=== PATIENT | female | born 1940 | race Caucasian/White ===

== ENCOUNTER → 2016-12-12 | Outpatient (CLI) | payer MEDICARE, BC ==
--- NOTE | 2016-12-12 12:42 | MR ---
EXAMINATION TYPE: MR lumbar spine wo con DATE OF EXAM: 12/12/2016 12:23 PM COMPARISON: NONE HISTORY: low back pain TECHNIQUE: T1 and T2 axial and sagittal images of the lumbar spine are submitted. FINDINGS: There is no abnormal signal seen within the visualized spinal cord or paraspinal soft tissu es. Correlate for sacroiliitis. there appears to be some artifact on the sagittal T2 image within the distal spinal cord. This area is not included on axial images. Simple appearing left renal cyst noted. At L1-2 there is mild degenerative disc disease but no evidence of canal stenosis or focal herniation . Mild facet arthropathy noted. At L2-3 there is mild to moderate hypertrophic change of the facets. No disc herniation or canal sten osis. Mild degenerative disc disease. No foraminal encroachment. At L3-4 there is Mild degenerative disc disease with moderate facet arthropathy. Mild circumferential disc bulging and effacement of the thecal sac but no canal stenosis. Mild bilateral foraminal encroa chment. At L4-5 there is severe facet arthropathy with grade 1 anterolisthesis. There is broad-based central disc bulging slightly greater paracentrally the left. Ligamentum flavum hypertrophy noted and there i s borderline canal stenosis and mild left foraminal encroachment. At L5-S1 there is facet arthropathy but no canal stenosis or foraminal encroachment. No disc herniati on. IMPRESSION: 1. Multilevel facet arthropathy with severe changes at L4-5 results in a grade 1 anterolisthesis. Spi nal canal is also diminutive at L4-5 with hypertrophic change of the facet joints and ligamentum flav um resulting in borderline canal stenosis. Disc bulging greater paracentrally left results in mild le ft foraminal encroachment. 2. Additionally at L4-L5 intermediate signal near the left lateral recess extending toward the left n eural foramina which may represent a more focal disc protrusion and foraminal encroachment.
== END | disposition home or self-care (01) ==
LOC: RADMRIMAIN 11:32
PROVIDERS: ATTEND Orthopaedic Surgery
DX: M48.06 Spinal stenosis, lumbar region (principal); M51.26 Other intervertebral disc displacement, lumbar region; M43.16 Spondylolisthesis, lumbar region; M46.96 Unspecified inflammatory spondylopathy, lumbar region
CPT/HCPCS: 72148

== ENCOUNTER → 2017-01-05 | Outpatient (CLI) | payer MEDICARE, BC ==
[2017-01-05 11:43] LABS: Basophils # (A) 0.1 k/uL (0-0.2); Basophils % (A) 1 %; CH 26.9; CHCM 31.8; Eosinophils # (A) 0.2 k/uL (0-0.7); Eosinophils % (A) 2 %; HCT 36.7 % (34.0-46.0); HDW 2.79; HGB 11.6 gm/dL (11.4-16.0); Hypochromasia Slight; Luc # (Auto) 0.41; Luc % (Auto) 4; Lymphocytes # (A) 2.7 k/uL (1.0-4.8); Lymphocytes % (A) 28 %; MCH 26.9 pg (25.0-35.0); MCHC 31.7 g/dL (31.0-37.0); Mean Platelet Volume 7.2; Monocytes # (A) 0.6 k/uL (0-1.0); Monocytes % (A) 6 %; Neutrophils # (A) 5.6 k/uL (1.3-7.7); Neutrophils % (A) 59 %; RBC 4.32 m/uL (3.80-5.40); RDW 14.9 % (11.5-15.5); WBC 9.6 k/uL (3.8-10.6); WBC (Perox) 10.89
== END | disposition home or self-care (01) ==
LOC: LABWHC1 11:03
PROVIDERS: ATTEND Physical Medicine & Rehabilitation
DX: M51.36 Other intervertebral disc degeneration, lumbar region (principal); M51.26 Other intervertebral disc displacement, lumbar region; M47.817 Spondylosis without myelopathy or radiculopathy, lumbosacral region; M54.16 Radiculopathy, lumbar region; M54.5 Low back pain
CPT/HCPCS: 36415; 84165; 85025

== ENCOUNTER → 2017-04-03 | Outpatient (CLI) | payer MEDICARE, BC ==
[2017-04-03 10:55] LABS: Basophils # (A) 0.1 k/uL (0-0.2); Basophils % (A) 1 %; CH 27.7; CHCM 31.8; Eosinophils # (A) 0.2 k/uL (0-0.7); Eosinophils % (A) 2 %; HCT 36.5 % (34.0-46.0); HDW 2.44; HGB 11.5 gm/dL (11.4-16.0); Luc # (Auto) 0.17; Luc % (Auto) 2; Lymphocytes # (A) 2.9 k/uL (1.0-4.8); Lymphocytes % (A) 38 %; MCH 27.4 pg (25.0-35.0); MCHC 31.4 g/dL (31.0-37.0); MCV 87.2 fL (80.0-100.0); Mean Platelet Volume 6.4; Monocytes # (A) 0.5 k/uL (0-1.0); Monocytes % (A) 7 %; Neutrophils # (A) 3.8 k/uL (1.3-7.7); Neutrophils % (A) 50 %; RBC 4.19 m/uL (3.80-5.40); RDW 14.7 % (11.5-15.5); WBC 7.7 k/uL (3.8-10.6); WBC (Perox) 7.64
[2017-04-03 10:59] LABS: Appearance,Urine Turbid (Clear); Bacteria,Urine Many /hpf; Bilirubin,Urine Negative (Negative); Glucose,Urine (UA) Negative (Negative); Ketones,Urine Negative (Negative); Leukocyte Esterase,Urine Large (Negative); Mucus,Urine Rare /hpf; Nitrite,Urine Positive (Negative); PH, Urine 5.5 (5.0-8.0); Particle Count 44240; Protein,Urine Trace (Negative); RBC,Urine 6 /hpf (0-5); Specific Gravity,Urine 1.016 (1.001-1.035); Squamous Epithelial Cell,Urine 12 /hpf (0-4); UA Billing (MACRO vs. MICRO) MICRO; Urobilinogen,Urine <2.0 mg/dL (<2.0); WBC,Urine >182 /hpf (0-5)
[2017-04-03 11:09] LABS: Anion Gap 12 mmol/L; Blood Urea Nitrogen 16 mg/dL (7-17); Calcium 9.1 mg/dL (8.4-10.2); Carbon Dioxide 21 mmol/L (22-30); Chloride 97 mmol/L (98-107); Glucose 161 mg/dL (74-99); Non-African American GFR(MDRD) >60 (>60 ml/min/1.73 sqM); Potassium 4.7 mmol/L (3.5-5.1); Sodium 130 mmol/L (137-145)
[2017-04-03 11:41] LABS: Partial Thromboplastin Time 23.9 sec (22.0-30.0); Prothrombin Time 9.9 sec (9.0-12.0)
--- NOTE | 2017-04-03 15:36 | XR ---
EXAMINATION TYPE: XR chest 2V DATE OF EXAM: 04/03/2017 HISTORY: Z01.818 pre op. REFERENCE: Previous study dated 07/17/2015. FINDINGS: An electronic stimulator objects behind the heart on the left. There has been interval development of a 4.2 mm right-sided pulmonary nodule. This was not seen with certainty on the previous study. The lungs are otherwise clear. Pleural spaces are clear. Heart size is upper limits of normal. IMPRESSION: 1. BORDERLINE CARDIOMEGALY. 2. SOLITARY RIGHT-SIDED PULMONARY NODULE. A CT SCAN OF THE CHEST WOULD BE SUGGESTED.
== END | disposition home or self-care (01) ==
LOC: LABWHC1 09:42
PROVIDERS: ATTEND Orthopaedic Surgery Orthopaedic Surgery of the Spine
DX: Z01.818 Encounter for other preprocedural examination (principal); R91.1 Solitary pulmonary nodule; Z01.812 Encounter for preprocedural laboratory examination; Z79.01 Long term (current) use of anticoagulants
CPT/HCPCS: 36415; 71020; 80048; 81001; 85025; 85610; 85730; 86850; 86900; 86901; 87070

== ENCOUNTER 2017-04-12 05:54 | Inpatient (IN) | payer MEDICARE, BC ==
[2017-04-05 11:52] VITALS: BMI 29.8
[~2017-04-12 05:54] MED LIST: BACITRACIN 50,000 UNIT, POLYMYXIN B 500,000 UNIT in SODIUM CHLORIDE 0.9% IRRIGATIO 1,00... IRRIGATION ONE; ceFAZolin 2 GM in SODIUM CHLORIDE 0.9% 100 ML IVPB ONE
[2017-04-12] MEDS ORDERED: SCOPOLAMINE 1.5MG/72HR PATCH TRANSDERM ONE (06:00)
[2017-04-12] MEDS ORDERED: ONDANSETRON 4 MG/2 ML VIAL IVP ONE (06:00)
[2017-04-12] MEDS ORDERED: DEXAMETHASONE SOD PHOSPHATE 10 MG/ML 1 ML VIAL IV ONE (06:00)
[2017-04-12] MEDS ORDERED: LIDOCAINE 1% 20 ML VIAL (10MG/ML) FOR IV START INTRADERMA PRN (06:00)
[2017-04-12] MEDS ORDERED: MIDAZOLAM 2 MG/2 ML VIAL IV PRN (06:00)
[2017-04-12 06:33] LABS: Glucose,Whole Blood 120 mg/dL (75-99)
[2017-04-12] MEDS: LACTATED RINGERS 1,000 ML IV SCH (06:35)
[2017-04-12] MEDS ORDERED: LIDOCAINE 1% INJ 10MG/ML (20 ML MDV) ONE (07:20)
[2017-04-12] MEDS ORDERED: ePHEDrine 50 MG/ML 1 ML AMP ONE (07:20)
[2017-04-12] MEDS ORDERED: MIDAZOLAM 2 MG/2 ML VIAL ONE (07:20)
[2017-04-12] MEDS ORDERED: fentaNYL (PF) 50 MCG/ML 2 ML AMP ONE (07:20)
[2017-04-12] MEDS ORDERED: PROPOFOL 10 MG/ML 20 ML VIAL IV ONE (07:20)
[2017-04-12] MEDS ORDERED: SUCCINYLCHOLINE CHLORIDE 100 MG/5 ML SYR IV ONE (07:20)
[2017-04-12] MEDS ORDERED: LEVOFLOXACIN 500MG-D5W PMX 500 MG in DEXTROSE/WATER 1 100ML.BAG IVPB STA (07:37)
[2017-04-12] MEDS ORDERED: GELATIN SPONGE,ABSORB (LARGE) 1 EACH SPONGE TOPICAL ONE (08:03)
[2017-04-12] MEDS ORDERED: THROMBIN (BOVINE) 5,000 UNIT VIAL TOPICAL ONE (08:03)
[2017-04-12] MEDS ORDERED: methylPREDNISolone ACETATE 80 MG/ML 1 ML VIAL INJ ONE (08:03)
[2017-04-12] MEDS ORDERED: LIDOCAINE 0.5%-EPI 1:200,000 50 ML VIAL SQ ONE (08:03)
[2017-04-12] MEDS ORDERED: LACTATED RINGERS 1,000 ML IV ONE (08:18)
--- NOTE | 2017-04-12 08:29 | FL ---
FLUOROSCOPY 3 seconds of fluoroscopy time were utilized during needle placement. 1 images document the procedure.
[2017-04-12] MEDS ORDERED: HYDROcodone/APAP 5-325MG 1 EACH TAB PO PRN (09:36)
[2017-04-12] MEDS ORDERED: BENZOCAINE/MENTHOL LOZENG 1 EACH LOZENGE MUCOUS MEM PRN (09:36)
[2017-04-12] MEDS ORDERED: ONDANSETRON 4 MG/2 ML VIAL IVP PRN (09:36)
[2017-04-12] MEDS ORDERED: HYDROmorphone 1 MG/ML 1 ML SYRINGE IVP PRN (09:36)
[2017-04-12] MEDS ORDERED: DIAZEPAM 5 MG TAB PO PRN (09:36)
[2017-04-12] MEDS ORDERED: MAGNESIUM HYDROXIDE 2,400 MG/10 ML CUP PO PRN (09:36)
[2017-04-12] MEDS ORDERED: NITROGLYCERIN SL TABS 0.4 MG TAB SUBLINGUAL PRN (09:42)
[2017-04-12] MEDS ORDERED: ACETAMINOPHEN TAB 325 MG TAB PO PRN (09:42)
[2017-04-12 09:53] LABS: Glucose,Whole Blood 143 mg/dL (75-99)
[2017-04-12] MEDS: HYDROmorphone 1 MG/ML 1 ML SYRINGE IVP PRN ×2 (10:18→10:27)
--- NOTE | 2017-04-12 10:20 | P.OP ---
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 Hinojosa Scraper Hand: Simón Liu is present throughout the entire the case persistence during positioning, dissection, exposure, visualization, and all crucial elements of the case as well as closure. Anesthesia: General anesthesia Estimated blood loss: Approximately 50 mL Complications: None apparent Components implanted: Tisseel was used over the dural repair Disposition: To recovery room in good stable condition. OPERATIVE INDICATIONS The patient has been having issues in their lower back and lower extremities. She is found have a disc herniation at L4 5 which correlated with her back and lower extremity symptoms. The patient has been through conservative treatment. She has been through extensive conservative care including epidural steroid injections. I was not aware of any specific, occasions with her epidural injections. She is not having any prolonged benefit despite extensive conservative treatment. We discussed various treatment options including surgery, and the patient wishes to proceed with surgery We discussed the risk, patient's alternatives and benefits of surgery including but not limited to, risk of bleeding risk of infection, risk of need for further surgery, risk of decreased, loss of motion, loss of function, nerve damage, dural tear, paralysis , heart attack, blindness and . OPERATIVE SUMMARY After discussing all the risks, patient alternatives and benefits at length, the patient elected to proceed with surgical intervention, signed informed consent, and presented for their procedure. The patient was seen and examined in the preoperative holding area and the surgical site was marked. The patient was given antibiotics and brought to the operating room. The patient was sedated and intubated by anesthesia in standard fashion. The patient was positioned on to the operating room table in a prone position on the appropriate frame which was well-padded and well molded. We were careful to pad any bony prominences and pressure points. We were careful to maintain the patient's cervical spine and good neutral alignment and position throughout. The patient was prepped and draped in a normal standard fashion. An appropriate timeout and keystone protocol performed. We were able to proceed with the surgery. Fluoroscopy was utilized to establish the appropriate level. The local wound area was infiltrated with local anesthetic. An incision was made at the midline longitudinally over the appropriate levels at L4 5. Dissection was taken down subcutaneously to the level of the fascia which was split midline. Dissection was taken over the lamina. Intraoperative fluoroscopy was taken which showed a marker at the appropriate level at L4 5. With the appropriate level positively confirmed, we were able to proceed with laminectomy. The wound was copiously irrigated and suctioned dry as had been done periodically throughout the case. I performed a laminectomy with a combination of curettes and a high-speed bur and Kerrison rongeurs. A small medial facetectomy was performed again further access. Upon removal of some of the ligamentum there was evidence of a change in the dura that was noticed. There seemed to be a bubble likely represented in the arachnoid matter of the dura. There was some scar tissue formation around the edges of the opening of the dura. There is no gross tear of the dura but there was a miniscule oozing of cerebral spinal fluid from the thin layer covering the dura. I did not note a specific pinching of the dura with minus rotation or during the procedure. I did not note a specific time that I incised the dura itself. With the scar tissue formation in the formation of the thin bubble type layer covering the durotomy felt that this may be due to a pseudomeningeoceole potentially from prior epidural injections. I had to expose that area further with extending the laminectomy across the midline to expose the area at the dorsal central area of the dura. I was able to expose the area appropriately and I did a repair with a 6-0 Prolene of the dura itself for good reapproximation. There is no evidence of further drainage from the area. The durotomy appeared to be repaired. A partial foraminotomy was also performed To get good access to the disc space and get good decompression. Portions of the ligamentum flavum were taken down to expose the dura and traversing nerve root. I was able to mobilize the traversing nerve root and gain access to the disc space. Note was made of obvious compression from the disc. Protecting the soft tissue structures, a small annulotomy was established. I was able to perform discectomy and remove any extruded disc fragments and any loose fragments from within the disc itself. There is some significant disc desiccation noted. I tried to preserve the disc annulus that appeared stable. There were no further extruded fragments noted. There is no evidence of further dural tear or leak. We used Tisseel over the dural repair. We placed the patient in a Valsalva maneuver with anesthesia and there is no evidence of any further leakage. Good hemostasis maintained. The wound was copiously irrigated and suctioned dry. Good decompression and discectomy was noted. We were able to proceed with closure. The fascia was closed for a watertight closure. The subcuticular tissue was closed with absorbable suture. The wound was cleaned and dried and dressed with the appropriate dressing. The drapes were broken down. The patient was gently rolled back onto their hospital bed being careful to maintain their cervical spine and good neutral alignment and position. They were woken up by anesthesia, extubated, and brought to the recovery room in good stable condition. The patient will be admitted to the hospital for observation and for appropriate postoperative care, medical management and monitoring. we will need to keep the patient flat in bed for approximately 48 hours before having her get upright to allow the dural repair to heal appropriately. We will continue to follow them closely about the postoperative course.
[2017-04-12] MEDS: CHOLECALCIFEROL 1,000 UNIT TAB PO SCH (11:41)
[2017-04-12 11:42] LABS: Glucose,Whole Blood 120 mg/dL (75-99)
[2017-04-12] MEDS: HYDROcodone/APAP 5-325MG 1 EACH TAB PO PRN ×2 (14:35→20:18)
[2017-04-12] MEDS: GABAPENTIN 300 MG CAP PO SCH ×2 (16:07→22:44)
[2017-04-12] MEDS: ceFAZolin 2 GM in SODIUM CHLORIDE 0.9% 100 ML IVPB SCH ×2 (16:08→23:46)
[2017-04-12] MEDS: hydrALAZINE HCL 25 MG TAB PO SCH ×2 (16:08→22:44)
[2017-04-12] MEDS: INSULIN LISPRO (humaLOG) 300 UNIT/3 ML VIAL SQ SCH ×2 (17:23→20:18)
[2017-04-12 17:26] LABS: Glucose,Whole Blood 129 mg/dL (75-99)
[2017-04-12 20:04] LABS: Glucose,Whole Blood 197 mg/dL (75-99)
[2017-04-12] MEDS: METOPROLOL TARTRATE 50 MG TAB PO SCH (20:18)
[2017-04-12] MEDS: FAMOTIDINE 20 MG TAB PO SCH (20:18)
[2017-04-12] MEDS: ATORVASTATIN 40 MG TAB PO SCH (20:18)
[2017-04-12] MEDS: SODIUM CHLORIDE 0.9% 1,000 ML IV SCH (20:35)
[2017-04-12] MEDS: metFORMIN 500 MG TAB PO SCH (20:48)
[2017-04-12] MEDS ORDERED: LISINOPRIL 20 MG TAB PO SCH (21:00)
[2017-04-13] MEDS: HYDROcodone/APAP 5-325MG 1 EACH TAB PO PRN ×4 (03:10→23:59)
[2017-04-13] MEDS: SODIUM CHLORIDE 0.9% 1,000 ML IV SCH ×3 (05:44→23:53)
[2017-04-13 07:02] LABS: Basophils % (A) 0 %; CHCM 31.9; Eosinophils # (A) 0.1 k/uL (0-0.7); Eosinophils % (A) 1 %; HCT 29.6 % (34.0-46.0); HDW 2.46; Luc # (Auto) 0.19; Luc % (Auto) 2; Lymphocytes # (A) 2.1 k/uL (1.0-4.8); Lymphocytes % (A) 22 %; MCH 27.9 pg (25.0-35.0); MCHC 32.9 g/dL (31.0-37.0); MCV 84.8 fL (80.0-100.0); Mean Platelet Volume 6.7; Monocytes # (A) 0.8 k/uL (0-1.0); Monocytes % (A) 9 %; Neutrophils # (A) 6.2 k/uL (1.3-7.7); Neutrophils % (A) 66 %; RBC 3.49 m/uL (3.80-5.40); RDW 14.5 % (11.5-15.5); WBC 9.4 k/uL (3.8-10.6); WBC (Perox) 9.63
[2017-04-13 07:07] LABS: HGB 9.7 gm/dL (11.4-16.0)
[2017-04-13 07:22] LABS: Anion Gap 7 mmol/L; Blood Urea Nitrogen 12 mg/dL (7-17); Calcium 8.5 mg/dL (8.4-10.2); Carbon Dioxide 22 mmol/L (22-30); Chloride 102 mmol/L (98-107); Glucose 153 mg/dL (74-99); Non-African American GFR(MDRD) >60 (>60 ml/min/1.73 sqM); Potassium 4.8 mmol/L (3.5-5.1); Sodium 131 mmol/L (137-145)
[2017-04-13] MEDS ORDERED: LEVOFLOXACIN 500MG-D5W PMX 500 MG in DEXTROSE/WATER 1 100ML.BAG IVPB SCH (08:00)
--- NOTE | 2017-04-13 08:02 | P.PN ---
Progress Note - Text Postoperative day #1 Patient is seen and examined today at bedside. The patient has some pain around the surgical site as expected. Pain is being controlled with medication. She is still flat in bed. She is not complaining of any headaches. She is not complaining of any pain in her lower extremities currently. She still feels some numbness at her left lower extremity. Physical Exam Afebrile with stable vital signs Abdomen is soft nontender. Chest has good excursion deep and space expiration The incision site is clean dry and intact. No erythema there is no purulence. Extremities have not had neurologic change from prior to surgery. She has sustained dorsal flexion plantar flexion and EHL. Calves and thighs were soft nontender without evidence of DVT. Negative Bry sign Assessment/Plan Postoperative day #1 status post laminectomy decompression and discectomy for her disc herniation Incidental durotomy that occurred at the time of surgery which was repaired requires further bedrest today We need to the patient flat with bedrest to allow the dural repair to continued heel. Tomorrow at breakfast he can start to sit her up and if she is making progress without having any headaches in a more upright position then she can progress to her activity as she tolerates and potentially even be discharged home tomorrow if she is not having headaches. Otherwise the Patient is progressing as expected from the surgery. She has been able to have some food while flat in bed. We need to continue her Alfaro for now. We will continue to increase the patient's mobilization with therapy. We will continue pain control with oral or IV medications. We'll continue to follow patient closely.
[2017-04-13 08:33] LABS: Hemoglobin A1C 6.7 % (4.2-6.1)
[2017-04-13 08:50] LABS: Glucose,Whole Blood 133 mg/dL (75-99)
[2017-04-13] MEDS: INSULIN LISPRO (humaLOG) 300 UNIT/3 ML VIAL SQ SCH ×4 (08:50→23:51)
[2017-04-13] MEDS: LACTATED RINGERS 1,000 ML IV SCH (08:55)
[2017-04-13] MEDS: metFORMIN 500 MG TAB PO SCH ×2 (08:57→23:42)
[2017-04-13] MEDS: GABAPENTIN 300 MG CAP PO SCH ×3 (08:57→23:42)
[2017-04-13] MEDS: CLOPIDOGREL 75 MG TAB PO SCH (08:57)
[2017-04-13] MEDS: METOPROLOL TARTRATE 50 MG TAB PO SCH ×2 (08:57→23:42)
[2017-04-13] MEDS: FAMOTIDINE 20 MG TAB PO SCH ×2 (08:58→23:41)
[2017-04-13] MEDS: SENNOSIDES-DOCUSATE SODIUM 1 EACH TAB PO SCH (08:58)
[2017-04-13] MEDS: ASPIRIN 81 MG CHEW PO SCH (08:59)
[2017-04-13] MEDS: hydrALAZINE HCL 25 MG TAB PO SCH ×3 (09:00→23:43)
[2017-04-13 12:12] LABS: Glucose,Whole Blood 132 mg/dL (75-99)
[2017-04-13] MEDS: CHOLECALCIFEROL 1,000 UNIT TAB PO SCH (12:52)
[2017-04-13 17:33] LABS: Glucose,Whole Blood 119 mg/dL (75-99)
[2017-04-13 21:02] LABS: Glucose,Whole Blood 123 mg/dL (75-99)
[2017-04-13] MEDS: ATORVASTATIN 40 MG TAB PO SCH (23:41)
[2017-04-14 07:07] LABS: Glucose,Whole Blood 104 mg/dL (75-99)
[2017-04-14] MEDS: LACTATED RINGERS 1,000 ML IV SCH (07:25)
[2017-04-14 07:50] LABS: Anion Gap 8 mmol/L; Blood Urea Nitrogen 8 mg/dL (7-17); Calcium 8.6 mg/dL (8.4-10.2); Carbon Dioxide 22 mmol/L (22-30); Chloride 106 mmol/L (98-107); Glucose 100 mg/dL (74-99); Non-African American GFR(MDRD) >60 (>60 ml/min/1.73 sqM); Potassium 4.4 mmol/L (3.5-5.1); Sodium 136 mmol/L (137-145)
[2017-04-14] MEDS: INSULIN LISPRO (humaLOG) 300 UNIT/3 ML VIAL SQ SCH ×4 (08:01→21:21)
[2017-04-14] MEDS: HYDROcodone/APAP 5-325MG 1 EACH TAB PO PRN ×3 (09:09→20:05)
[2017-04-14] MEDS: FAMOTIDINE 20 MG TAB PO SCH ×2 (09:12→20:06)
[2017-04-14] MEDS: SENNOSIDES-DOCUSATE SODIUM 1 EACH TAB PO SCH (09:12)
[2017-04-14] MEDS: CLOPIDOGREL 75 MG TAB PO SCH (09:13)
[2017-04-14] MEDS: GABAPENTIN 300 MG CAP PO SCH ×3 (09:13→20:06)
[2017-04-14] MEDS: METOPROLOL TARTRATE 50 MG TAB PO SCH ×2 (09:13→20:07)
[2017-04-14] MEDS: LEVOFLOXACIN 500 MG TAB PO SCH (09:13)
[2017-04-14] MEDS: ASPIRIN 81 MG CHEW PO SCH (09:14)
[2017-04-14] MEDS: metFORMIN 500 MG TAB PO SCH ×2 (09:14→20:06)
[2017-04-14] MEDS: hydrALAZINE HCL 25 MG TAB PO SCH ×3 (09:50→20:07)
[2017-04-14 11:35] LABS: Glucose,Whole Blood 135 mg/dL (75-99)
[2017-04-14] MEDS: CHOLECALCIFEROL 1,000 UNIT TAB PO SCH (12:35)
[2017-04-14] MEDS: SODIUM CHLORIDE 0.9% 1,000 ML IV SCH (16:14)
[2017-04-14 16:41] LABS: Glucose,Whole Blood 111 mg/dL (75-99)
--- NOTE | 2017-04-14 17:36 | P.PN ---
Progress Note - Text Orthopedic Spine Patient is a pleasant 76-year-old female who is seen at the bedside following laminectomy performed Monday. Patient has been lying flat in bed following surgical intervention after durotomy repair of approximately 3 mm. While at the bedside today, patient is sat upright at approximately 60. Patient is able to sit comfortably without evidence of spinal headache. She is not currently complaining of any lower extremity radiculopathy bilaterally. She does have significant pain at the surgical site of the lumbar spine with increased movement. She has been able to eat without significant difficulty. Her Alfaro catheter has remained intact. Overall, her pain has been adequately controlled. Currently does not complain of nausea, vomiting, fever, or chills. Physical Exam Laminectomy/Discectomy: Status post surgical day number 2 Patient is awake, alert, and oriented 3 Vital signs stable Good chest excursion with deep inspiration and expiration Abdomen soft nontender Dorsiflexion, plantarflexion, and extensor hallucis longus positive sustained bilaterally No signs or symptoms of DVT; no calf pain Dressing is unable to be visualized as the patient has just been sat up to approximately 60 for the first time postsurgically to assess for spinal headache Patient is able to sit upright at approximately 60 without evidence of spinal headache Assessment: Laminectomy and decompression and discectomy L4-5 Durotomy repair of approximately 3 mm L4-5 herniated disc for pulses, foraminal stenosis, and degenerative disc disease Plan: 1. Patient has been able to sit upright at approximately 60 in the bed without significant difficulty. We will plan to have her work with physical therapy to transfer to bedside chair and also try to increase ambulation and mobility as long as the patient continues to refrain from experiencing spinal headaches. If the patient is able to continue improving throughout the day, we may plan for discharge home as early as tomorrow, 04/15/2017. When she is able to increase her mobility, we'll plan to discontinue her Alfaro catheter. A prescription is also written for the patient today for a walker. 2. Continue Pain control with oral medications. Patient will be given a prescription for [place] 5 mg/325 mg 1 tablet every 6 hours as needed for pain dispense 90 at discharge. This prescription is placed in her chart. 3. Medical management can continue to manage patient for patient's other medical issues 4. We will continue to follow the patient closely 5. Patient can follow-up with Simón Stokes PA-C or Dr. Nahun Hinojosa at [facility] in 2-3 weeks following discharge
[2017-04-14] MEDS: ATORVASTATIN 40 MG TAB PO SCH (20:06)
[2017-04-14 20:39] LABS: Glucose,Whole Blood 140 mg/dL (75-99)
[2017-04-14] MEDS: LISINOPRIL 20 MG TAB PO SCH (21:21)
[2017-04-15] MEDS: HYDROcodone/APAP 5-325MG 1 EACH TAB PO PRN ×4 (00:10→15:22)
[2017-04-15] MEDS: SODIUM CHLORIDE 0.9% 1,000 ML IV SCH ×2 (06:14→21:03)
[2017-04-15 07:10] LABS: Glucose,Whole Blood 102 mg/dL (75-99)
[2017-04-15] MEDS: INSULIN LISPRO (humaLOG) 300 UNIT/3 ML VIAL SQ SCH ×4 (08:46→20:41)
[2017-04-15] MEDS: GABAPENTIN 300 MG CAP PO SCH ×3 (08:49→21:22)
[2017-04-15] MEDS: CLOPIDOGREL 75 MG TAB PO SCH (08:50)
[2017-04-15] MEDS: LEVOFLOXACIN 500 MG TAB PO SCH (08:50)
[2017-04-15] MEDS: hydrALAZINE HCL 25 MG TAB PO SCH ×3 (08:50→21:22)
[2017-04-15] MEDS: FAMOTIDINE 20 MG TAB PO SCH ×2 (08:50→20:41)
[2017-04-15] MEDS: SENNOSIDES-DOCUSATE SODIUM 1 EACH TAB PO SCH (08:50)
[2017-04-15] MEDS: METOPROLOL TARTRATE 50 MG TAB PO SCH ×2 (08:50→20:41)
[2017-04-15] MEDS: metFORMIN 500 MG TAB PO SCH ×2 (08:50→20:41)
--- NOTE | 2017-04-15 11:01 | P.PN ---
Subjective Principal diagnosis: Status post lumbar discectomy L4 5. his is a 76-year-old female who is status post lumbar discectomy L4 5 with repair durotomy. The patient is doing fairly well from an orthopedic standpoint. She is still quite slow moving. She has no new complaints or concerns today. Objective - Vital Signs Vital signs: Vital Signs Temp 97.4 F L 04/15/17 07:00 Pulse 81 04/15/17 07:00 Resp 16 04/15/17 07:00 BP 145/69 04/15/17 07:00 Pulse Ox 92 L 04/15/17 07:00 Intake & Output 04/14/17 04/15/17 04/15/17 18:59 06:59 18:59 Intake Total 237 1260 200 Output Total 900 550 Balance -663 710 200 Intake: Intake, IV Titration 900 Amount Sodium Chloride 0.9% 1, 900 000 ml @ 75 mls/hr IV . [id number] [facility] Rx#:[id number] Oral 237 360 200 Output: Urine 900 350 Uretheral (Alfaro) 200 Emesis 200 Other: Voiding Method Indwelling Catheter Toilet # Voids 0 # Emeses 2 - Exam His is a pleasant 76-year-old female in no acute distress. She is alert and oriented 3. Exam of the low back reveals that her dressing is clean, dry and intact. She has full foot ankle motion bilaterally. No neurologic deficits noted. - Labs CBC & Chem 7: 04/13/17 06:39 04/14/17 06:49 Labs: Abnormal Lab Results - Last 24 Hours (Table) 04/14/17 04/14/17 04/14/17 Range/Units 11:34 16:35 20:37 POC Glucose (mg/dL) 135 H 111 H 140 H (75-99) mg/dL 04/15/17 Range/Units 06:56 POC Glucose (mg/dL) 102 H (75-99) mg/dL Assessment and Plan (1) Status post lumbar discectomy Status: Acute Plan: The clinical findings are discussed the patient. She is discussing possible rehab placement, however she may not be a candidate for inpatient rehab. Most likely she'll be discharged to home. She would like to stay 1 more day.
[2017-04-15] MEDS: ASPIRIN 81 MG CHEW PO SCH (11:07)
[2017-04-15] MEDS: CHOLECALCIFEROL 1,000 UNIT TAB PO SCH (11:07)
[2017-04-15 11:58] LABS: Glucose,Whole Blood 108 mg/dL (75-99)
--- NOTE | 2017-04-15 12:22 | CONS ---
REASON FOR CONSULTATION: Medical management of hypertension, diabetes mellitus and other medical problems. HISTORY OF PRESENT ILLNESS: The patient was admitted with a known history of hypertension, diabetes type 2, GERD, hyperlipidemia, history of diverticulosis and DJD. Was admitted to the hospital for laminectomy and decompression of L4- L5. 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 Hinojosa. Patient tolerated the procedure well. Currently the patient denied any complaints of pain except with movement. No complaints of chest pain , shortness of breath. No nausea, vomiting, abdominal pain. No complaint of dizziness or lightheadedness. The patient tolerated the procedure well. Medicine service has been consulted for medical management of her multiple medical problems. REVIEW OF SYSTEMS: CONSTITUTIONAL: No fever or chills. RESPIRATORY: No cough or sputum production. CARDIOVASCULAR: No chest pain. ABDOMEN: No nausea, vomiting, abdominal pain. GENITOURINARY: None. MUSCULOSKELETAL: Back pain at surgical site and tenderness. PSYCHIATRIC: Negative. PAST MEDICAL HISTORY: Hypertension, diabetes type 2, GERD, DJD, diverticulosis , varicosities, osteoporosis, hiatal hernia, cervical cancer. PAST SURGICAL HISTORY: Cardiac catheterization times two negative, colonoscopy , polypectomy, bilateral cataract removal, fatty tumor removed from neck as well as loop precordial insertion. FAMILY HISTORY: Father of heart attack at age 76. SOCIAL HISTORY: Patient is a , lives by herself. Used to work at a factory. The patient smoked on average 1 to 1 1/2 packs per day, she stopped in 2008. Denied alcohol. Denied any drugs. ALLERGIES: ( ). HOME MEDICATIONS : Metoprolol 100 mg p.o. b.i.d., metformin 1000 mg p.o. b.i.d. , aspirin 81 mg p.o. daily, vitamin D3 2000 units p.o. daily, ( ) 500 mg p.o. b.i.d., ( ) mg p.o. daily, Zantac 150 mg p.o. b.i.d., Occuvite with lutein tablet, one tablet p.o. b.i.d; nitroglycerin sublingual tablets 0.4 sublingual q5 minutes p.r.n. for chest pain, Tylenol 650 mg p.o. q6 hourly p.r.n. for pain, atorvastatin 40 mg p.o. q. h.s., gabapentin 600 mg p.o. t.i.d. , lisinopril 20 mg p.o. q.h.s., HydroDIURIL 50 mg p.o. t.i.d. PHYSICAL EXAMINATION: 78-year-old female lying in bed comfortable, awake, alert and oriented. No apparent distress. VITAL SIGNS: Blood pressure is 141/69, pulse is 66, respirations 16, temperature afebrile, pulse is 93% on room air. HEENT: Atraumatic, normocephalic. NECK: Supple. No JVD. CVS: S1, S2 heard. No murmurs, no gallops, no rubs. LUNGS: Bilateral air entry is present. No wheezing, no crackles. ABDOMEN: Soft, nontender. Bowel sounds are present. REMOTE SENSING SPECIALIST: Alert and oriented times 3. No focal deficits. EXTREMITIES: No edema. Positive pulses bilaterally. No clubbing or tenderness. PSYCHIATRIC: Cooperative. MUSCULOSKELETAL: No joint swelling or deformity. IMPRESSION: 1. Status post L4-L5 laminectomy and decompression, postoperative day 0. 2. Hypertension. Continue with her home medications. 3. Diabetes mellitus. Will continue the metformin at this time along with insulin sliding scale. Will check a1c. Blood sugar is fairly controlled. 4. History of non-ST elevated myocardial infarction with negative cardiac catheterization times 2. 5. History of transient ischemic attack times 2, currently on aspirin and Plavix. 6. Gastroesophageal reflux disease. 7. Hyperlipidemia. 8. Degenerative joint disease. 9. Diverticulosis. 10. Osteoporosis. 11. Remote history of smoking. PLAN: The patient will be continued on pain medications and ( ), continue with blood pressure medications and continue insulin sliding scale along with metformin and will follow a1c level. Will continue with the aspirin and Plavix can be started tomorrow. Otherwise, gentle hydration and monitor closely. Will check CBC and BNP in the morning. Follow closely. Further recommendations based on clinical results. Thank you for your consult. DEMETRICE
[2017-04-15] MEDS: LACTATED RINGERS 1,000 ML IV SCH (14:25)
--- NOTE | 2017-04-15 16:25 | P.PN ---
Subjective Patient doesn't have any significant overnight events hyponatremia resolved, patient did have a bowel movement yesterday as well as today morning. And patient back pain significant improved. Objective - Vital Signs Vital signs: Vital Signs Temp 97.2 F L 04/15/17 14:36 Pulse 82 04/15/17 14:36 Resp 18 04/15/17 14:36 BP 120/79 04/15/17 14:36 Pulse Ox 95 04/15/17 14:36 Intake & Output 04/14/17 04/15/17 04/15/17 18:59 06:59 18:59 Intake Total 237 1260 680 Output Total 900 550 Balance -663 710 680 Intake: Intake, IV Titration 900 Amount Sodium Chloride 0.9% 1, 900 000 ml @ 75 mls/hr IV . [id number] [facility] Rx#:[id number] Oral 237 360 680 Output: Urine 900 350 Uretheral (Alfaro) 200 Emesis 200 Other: Voiding Method Indwelling Catheter Toilet Toilet # Voids 0 3 # Bowel Movements 1 # Emeses 2 - Exam PHYSICAL EXAMINATION: GENERAL: The patient is alert and oriented x3, not in any acute distress. Well developed, well nourished. HEENT: Pupils are round and equally reacting to light. EOMI. No scleral icterus. No conjunctival pallor. Normocephalic, atraumatic. No pharyngeal erythema. No thyromegaly. CARDIOVASCULAR: S1 and S2 present. No murmurs, rubs, or gallops. PULMONARY: Chest is clear to auscultation, no wheezing or crackles. ABDOMEN: Soft, nontender, nondistended, normoactive bowel sounds. No palpable organomegaly. MUSCULOSKELETAL: Deferred to orthopedic surgery EXTREMITIES: No cyanosis, clubbing, or pedal edema. NEUROLOGICAL: Gross neurological examination did not reveal any focal deficits. SKIN: No rashes. - Labs CBC & Chem 7: 04/13/17 06:39 04/14/17 06:49 Labs: Abnormal Lab Results - Last 24 Hours (Table) 04/14/17 04/14/17 04/15/17 Range/Units 16:35 20:37 06:56 POC Glucose (mg/dL) 111 H 140 H 102 H (75-99) mg/dL 04/15/17 Range/Units 11:54 POC Glucose (mg/dL) 108 H (75-99) mg/dL Assessment and Plan Plan: Status post lumbar decompression surgery and laminectomy: Patient did move her bowel, continue with incentive spirometry. Hypertension: Patient was started back on her home regimen of antihypertensive medications with very well controlled blood pressure. Type 2 diabetes mellitus: Continue with present regimen Coronary artery disease Hyperlipidemia Osteoarthritis CVA in the past Plan is to continue with present medications, will follow the patient on as- needed basis.
[2017-04-15 17:30] LABS: Glucose,Whole Blood 96 mg/dL (75-99)
[2017-04-15 20:22] LABS: Glucose,Whole Blood 98 mg/dL (75-99)
[2017-04-15] MEDS: ATORVASTATIN 40 MG TAB PO SCH (20:41)
[2017-04-15] MEDS: LISINOPRIL 20 MG TAB PO SCH (20:41)
[2017-04-16] MEDS: LACTATED RINGERS 1,000 ML IV SCH (00:03)
[2017-04-16] MEDS: HYDROcodone/APAP 5-325MG 1 EACH TAB PO PRN ×2 (00:40→09:10)
[2017-04-16 07:11] LABS: Glucose,Whole Blood 94 mg/dL (75-99)
[2017-04-16] MEDS: LEVOFLOXACIN 500 MG TAB PO SCH (09:09)
[2017-04-16] MEDS: GABAPENTIN 300 MG CAP PO SCH (09:10)
[2017-04-16] MEDS: metFORMIN 500 MG TAB PO SCH (09:10)
[2017-04-16] MEDS: FAMOTIDINE 20 MG TAB PO SCH (09:10)
[2017-04-16] MEDS: hydrALAZINE HCL 25 MG TAB PO SCH (09:10)
[2017-04-16] MEDS: INSULIN LISPRO (humaLOG) 300 UNIT/3 ML VIAL SQ SCH ×2 (09:11→11:26)
[2017-04-16] MEDS: CLOPIDOGREL 75 MG TAB PO SCH (09:12)
[2017-04-16] MEDS: METOPROLOL TARTRATE 50 MG TAB PO SCH (09:20)
[2017-04-16 09:36] VITALS: BP 146/79; PULSE 82; RESP 15; TEMP 97.8
--- NOTE | 2017-04-16 09:54 | P.DS ---
<Doris Vera - Last Filed: 04/16/17 09:50> Providers Date of admission: 04/14/17 12:58 Expected date of discharge: 04/16/17 Attending physician: Arnoldo Hinojosa Consults: 04/12/17 09:36 Consult Physician Routine Consulting Provider: Luciana Galeano Reason/Comments: Medical management Do you want consulting provider notified?: Yes Primary care physician: Gen Palma - Discharge Diagnosis(es) (1) Status post lumbar discectomy Current Visit: Yes Status: Acute Hospital Course: This is a 76-year-old female who is status post lumbar laminectomy/discectomy with repair of durotomy. The patient was moving quite slowly postoperatively. She was on strict bedrest for the first 24 hours postoperatively. She is improving and is able to ambulate independently with her walker. She contemplated discharged to rehab. However, she is doing well on postoperative day #4 and is ready for discharge to home. Vital signs are stable. Plan - Discharge Summary New Discharge Prescriptions: New HYDROcodone/APAP 5-325MG [[place] 5-325] 1 - 2 each PO Q4-6H PRN #90 tab PRN Reason: Pain No Action Metoprolol Tartrate [Lopressor] 100 mg PO BID metFORMIN HCL [Glucophage] 1,000 mg PO BID Aspirin 81 mg PO DAILY #1 chewable Vits A,C,E/Lutein/Minerals [Ocuvite with Lutein Tablet] 1 tab PO BID Ranitidine HCl [Zantac] 150 mg PO BID Clopidogrel Bisulfate [Plavix] 75 mg PO DAILY Cinnamon Bark [Cinnamon] 500 mg PO BID Cholecalciferol [Vitamin D3] 2,000 unit PO DAILY@1200 #0 Nitroglycerin Sl Tabs [Nitrostat] 0.4 mg SUBLINGUAL Q5M PRN #25 tab PRN Reason: Chest Pain Gabapentin [Neurontin] 600 mg PO TID Atorvastatin [Lipitor] 40 mg PO HS Acetaminophen Tab [Tylenol Tab] 650 mg PO Q6H PRN PRN Reason: Pain hydrALAZINE HCL [Apresoline] 50 mg PO TID Lisinopril [Zestril] 20 mg PO HS Discharge Medication List Metoprolol Tartrate [Lopressor] 100 mg PO BID 05/14/15 [History] metFORMIN HCL [Glucophage] 1,000 mg PO BID 07/02/15 [History] Aspirin 81 mg PO DAILY #1 chewable 07/04/15 [Rx] Cholecalciferol [Vitamin D3] 2,000 unit PO DAILY@1200 #0 07/15/15 [History] Cinnamon Bark [Cinnamon] 500 mg PO BID 07/15/15 [History] Clopidogrel Bisulfate [Plavix] 75 mg PO DAILY 07/15/15 [History] Ranitidine HCl [Zantac] 150 mg PO BID 07/15/15 [History] Vits A,C,E/Lutein/Minerals [Ocuvite with Lutein Tablet] 1 tab PO BID 07/15/15 [ History] Nitroglycerin Sl Tabs [Nitrostat] 0.4 mg SUBLINGUAL Q5M PRN #25 tab 07/18/15 [Rx ] Acetaminophen Tab [Tylenol Tab] 650 mg PO Q6H PRN 04/05/17 [History] Atorvastatin [Lipitor] 40 mg PO HS 04/05/17 [History] Gabapentin [Neurontin] 600 mg PO TID 04/05/17 [History] hydrALAZINE HCL [Apresoline] 50 mg PO TID 04/05/17 [History] Lisinopril [Zestril] 20 mg PO HS 04/14/17 [History] HYDROcodone/APAP 5-325MG [[place] 5-325] 1 - 2 each PO Q4-6H PRN #90 tab 04/15/17 [Rx] Follow up Appointment(s)/Referral(s): Simón Stokes, ELVIN [PHYSICIAN TABLET COATER] - 2 Weeks (Patient may follow-up with Simón Stokes PA-C or Dr. Nahun Hinojosa at [facility] in 2-3 weeks following discharge. ) Activity/Diet/Wound Care/Special Instructions: 1. Patient may shower Tegaderm dressing intact. 2. Patient may remove Tegaderm dressing in 3 days and shower without a dressing at that time. 3. Patient should keep Steri-Strips intact and allow them to fall off naturally. 4. Patient should refrain from driving until at least after their first follow- up appointment in the office. 5. Patient should avoid excessive bending, twisting, and lifting; no lifting greater than 10 pounds 6. Do not soak in tub Discharge Disposition: HOME WITH HOME HEALTH SERVICES <Arnoldo Hinojosa - Last Filed: 04/16/17 10:10> Hospital Course: Patient seen and examined at bedside. I answered the patient's questions best my ability and language she can understand. I discussed case with Doris Vera our physician health information assistant and I'm agreeable with her above dictation. The patient will follow-up in approximately 2 weeks for recheck evaluation or sooner if she is having any problems. She is denying any evidence of any headaches or spinal headaches.
--- NOTE | 2017-04-16 10:51 | PN ---
The patient is clinically doing well. Is passing gas. Did not move her bowel yet. Patient is on levofloxacin although there is no evidence of urinary tract infection. Patient appears to have a symptomatic bacteria before her admission and patient's pain is better. 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 Although we continue with IV fluids and reassess her sodium. Because of the low normal blood pressures I will hold off on lisinopril. REVIEW OF SYSTEMS: PHYSICAL EXAMINATION: Temperature 98.8, pulse is 78, respiratory rate 16, blood pressure 146/68, saturating 97% on room air. MUSCULOSKELETAL: Orthopedic surgery. ABDOMEN: The patient does have good bowel sounds. LABORATORY DATA: Hemoglobin is 9.7. ASSESSMENT AND PLAN: 1. Status post back surgery postoperative day 1. The patient is clinically doing well, passing gas. Pain is well controlled. 2. Acute blood loss anemia from surgery which is expected outcome. 3. Hyponatremia from pain. The patient appears to have euvolemic hyponatremia. 4. Diabetes mellitus. Continue with present insulin regimen. 5. Hypertension. Recommend to hold off on lisinopril as mentioned above. 6. Hyperlipidemia. Continue with home medications. 7. Gastroesophageal reflux disease. 8. ( ) in the past. Patient can be started on antiplatelet therapy whenever acceptable from surgical perspective. Regarding antibiotics, I do not believe patient has urinary tract infection. The patient, before admission, had a symptomatic bacteria. I do not believe patient will need antibiotics at this point as the patient received pre and perioperative antibiotics. Will discuss with Dr. Hinojosa before I discontinue the antibiotics. [facility]
[2017-04-16 11:19] LABS: Glucose,Whole Blood 101 mg/dL (75-99)
[2017-04-16] MEDS: SODIUM CHLORIDE 0.9% 1,000 ML IV SCH (11:22)
[2017-04-16] MEDS: ASPIRIN 81 MG CHEW PO SCH (11:22)
[2017-04-16] MEDS: SENNOSIDES-DOCUSATE SODIUM 1 EACH TAB PO SCH (11:23)
[2017-04-16] MEDS: CHOLECALCIFEROL 1,000 UNIT TAB PO SCH (11:25)
== END 2017-04-16 12:43 | disposition home or self-care (01) | DRG 519 ==
LOC: OR 05:54 → 3SUR 09:42 → OR 04-14 12:02 → 3SUR 04-14 12:58
PROVIDERS: ADMIT Orthopaedic Surgery Orthopaedic Surgery of the Spine; ATTEND Orthopaedic Surgery Orthopaedic Surgery of the Spine
PROC: 00QT0ZZ Repair Spinal Meninges, Open Approach (ICD-10-PCS; principal; 2017-04-14)
PROC: 0ST20ZZ Resection of Lumbar Vertebral Disc, Open Approach (ICD-10-PCS; principal; 2017-04-14)
DX: M51.26 Other intervertebral disc displacement, lumbar region (principal); E22.2 Syndrome of inappropriate secretion of antidiuretic hormone; E11.9 Type 2 diabetes mellitus without complications; D62 Acute posthemorrhagic anemia; G96.11 Dural tear; I10 Essential (primary) hypertension; Z79.899 Other long term (current) drug therapy; Z79.84 Long term (current) use of oral hypoglycemic drugs; E78.5 Hyperlipidemia, unspecified; K21.9 Gastro-esophageal reflux disease without esophagitis; Z86.73 Personal history of transient ischemic attack (TIA), and cerebral infarction without residual deficits; Z79.02 Long term (current) use of antithrombotics/antiplatelets; M47.817 Spondylosis without myelopathy or radiculopathy, lumbosacral region; M51.17 Intervertebral disc disorders with radiculopathy, lumbosacral region; M43.16 Spondylolisthesis, lumbar region; K57.90 Diverticulosis of intestine, part unspecified, without perforation or abscess without bleeding; M48.06 Spinal stenosis, lumbar region; M81.0 Age-related osteoporosis without current pathological fracture; Z79.82 Long term (current) use of aspirin; Z82.49 Family history of ischemic heart disease and other diseases of the circulatory system; Z85.41 Personal history of malignant neoplasm of cervix uteri; Z87.891 Personal history of nicotine dependence; I25.2 Old myocardial infarction
CPT/HCPCS: 72020; 80048; 83036; 85025; 86850; 86900; 86901

== ENCOUNTER → 2017-05-01 | Outpatient (CLI) | payer MEDICARE, BC ==
[2017-05-01 10:44] LABS: Blood Urea Nitrogen 13 mg/dL (7-17); Non-African American GFR(MDRD) >60 (>60 ml/min/1.73 sqM)
--- NOTE | 2017-05-01 12:35 | CT ---
EXAMINATION TYPE: CT chest w con DATE OF EXAM: 05/01/2017 COMPARISON: CTA chest July 15, 2015. Two-view chest x-ray April 03, 2017 HISTORY: Solitary lung nodule, abnormal recent chest x-ray CT DLP: 227.10 mGycm. Automated Exposure Control for Dose Reduction was Utilized. TECHNIQUE: CT scan of the thorax is performed following with IV Contrast, patient injected with 100 mL of Omnipaque 300. FINDINGS: LUNGS: Seen better on current study is 10 x 5 mm densely calcified subpleural nodule posteriorly in t he right lung base on axial image 34 which likely correlates with area of x-ray abnormality, this les ion was obscured by consolidation and effusion on prior CT. There are additional smaller calcified no dules posteriorly in the right midlung near axial images 22 through 24 seen better on current study. No suspicious greater than 6 mm noncalcified nodules or masses are identified. There is mild emphysem atous change with minimal apical scarring bilaterally. There is dependent atelectasis in both bases. There is no pleural effusion or pneumothorax seen bilaterally. MEDIASTINUM: There are no greater than 1 cm noncalcified hilar or mediastinal lymph nodes. There are calcified subcentimeter right hilar lymph nodes. No pericardial effusion is seen. Heart size is up per limits of normal. There is prominent coronary artery calcification in the LAD and left circumflex arteries redemonstrated. There is moderate mixed plaque in the visualized aorta. OTHER: Numerous calcifications throughout the spleen are redemonstrated. There are occasional calcifi cations scattered throughout the liver. There is 1.2 cm low dense lesion left hepatic lobe on image 4 8 felt to reflect simple cysts stable in size and appearance from prior study. There is 1 cm cyst lat erally upper to mid pole level left kidney on coronal image 46. There is slight nodular thickening to both adrenal glands redemonstrated. There is suspected prominent duodenal diverticulum medial second portion near axial image 56 not completely imaged. There is loop recorder overlying medial left mid chest wall new from prior study. There is moderate multilevel spurring in the mid to lower thoracic s pine anteriorly. IMPRESSION: CT findings consistent with old granulomatous disease noted as detailed above and account for chest x-ray abnormality. No worrisome parenchymal nodule or mass is identified.
== END | disposition home or self-care (01) ==
LOC: RADCTMAIN 09:51
PROVIDERS: ATTEND Family Medicine
DX: R91.1 Solitary pulmonary nodule (principal)
CPT/HCPCS: 82565; 84520; 71260; 36415; Q9967

== ENCOUNTER → 2017-05-24 | Outpatient (CLI) | payer MEDICARE, BC ==
--- NOTE | 2017-05-25 10:58 | MM ---
Reason for exam: screening (asymptomatic). Last mammogram was performed 1 year and 2 months ago. History: Patient is postmenopausal and has history of other cancer at age 35. Family history of breast cancer in sister at age 82, breast cancer in maternal aunt at age 65, and breast cancer in maternal unspecified at age 25. Benign right breast needle localzation of both breasts, June 18, 2013. Benign right mammotome panel of the right breast, May 07, 2013. Took estrogen for 10 years. Physical Findings: A clinical breast exam by your physician is recommended on an annual basis and results should be correlated with mammographic findings. MG 3D Screening Mammo W/Cad Bilateral CC and MLO view(s) were taken. Prior study comparison: April 06, 2016, bilateral MG diagnostic mammo w CAD DARRIN. February 20, 2015, bilateral MG diagnostic mammo w CAD DARRIN. January 03, 2014, left breast ultrasound. January 03, 2014, CAD bilateral diagnostic mammogram. There are scattered fibroglandular densities. Finding: There are typically benign vascular, round calcifications in both breasts. There is no discrete abnormality. Loop recorder medial left breast redemonstrated. ASSESSMENT: Benign, BI-RAD 2 RECOMMENDATION: Routine screening mammogram of both breasts in 1 year.
== END | disposition home or self-care (01) ==
LOC: RADMAMWWP 09:52
PROVIDERS: ATTEND Family Medicine
DX: Z12.31 Encounter for screening mammogram for malignant neoplasm of breast (principal)
CPT/HCPCS: 77063; G0202

== ENCOUNTER → 2017-12-05 | Outpatient (CLI) | payer MEDICARE, BC ==
--- NOTE | 2017-12-05 17:05 | US ---
EXAMINATION TYPE: US carotid duplex BILAT DATE OF EXAM: 12/05/2017 COMPARISON: Prior carotid ultrasound July 02, 2015 CLINICAL HISTORY: R09.89 CIRCULATORY AND RESPIRATORY SYMPTOMS. Bruit EXAM MEASUREMENTS: RIGHT: Peak Systolic Velocity (PSV) cm/sec ----- Right CCA: 93.5 ----- Right ICA: 111.3 ----- Right ECA: 127.9 ICA/CCA ratio: 1.2 RIGHT: End Diastole cm/sec ----- Right CCA: 16.0 ----- Right ICA: 19.2 ----- Right ECA: 7.7 LEFT: Peak Systolic Velocity (PSV) cm/sec ----- Left CCA: 122.0 ----- Left ICA: 122.6 ----- Left ECA: 124.0 ICA/CCA ratio: 1.0 LEFT: End Diastole cm/sec ----- Left CCA: 17.3 ----- Left ICA: 28.9 ----- Left ECA: 13.6 VERTEBRALS (direction of flow): Right Vertebral: Antegrade Left Vertebral: Antegrade Rhythm: Normal [place]-scale images redemonstrate fairly moderate eccentric hyperechoic plaque right carotid bulb with suspected progression from prior ultrasound but velocity measurements and ratios in visualized portio n right internal carotid artery remain within normal limits. There is moderate eccentric anterior hyp erechoic plaque left carotid bulb redemonstrated not significantly changed from prior. Velocity measu rement and ratio in the proximal internal carotid artery remain within normal limits. IMPRESSION: Moderate atherosclerotic changes bilaterally without hemodynamically significant stenosi s identified in either internal carotid artery .
== END | disposition home or self-care (01) ==
LOC: RADUSWWP 16:23
PROVIDERS: ATTEND Family Medicine
DX: I65.23 Occlusion and stenosis of bilateral carotid arteries (principal)
CPT/HCPCS: 93880

== ENCOUNTER 2018-04-02 22:38 | Observation (INO) | payer MEDICARE, BC ==
[2018-04-02] MEDS ORDERED: ASPIRIN 81 MG PO STA (23:00)
[2018-04-02] MEDS ORDERED: LISINOPRIL 20 MG TAB PO STA (23:00)
[2018-04-02] MEDS ORDERED: METOPROLOL TARTRATE 50 MG TAB PO STA (23:00)
--- NOTE | 2018-04-02 23:14 | ED ---
Chest Pain HPI - General Chief Complaint: Chest Pain Stated Complaint: hypertension Time Seen by Provider: 04/02/18 22:50 Source: patient Mode of arrival: wheelchair Limitations: no limitations - History of Present Illness Initial Comments: This is a 77-year-old female who presents emergency department mostly for high blood pressure. The patient states that around 9:40 PM she noted that she was having a pounding in her chest and inner ears. She states that she also developed a headache and also a little bit of chest discomfort that radiated up into her neck. She states that she also has a little bit of back pain. She states that she does not have any numbness, tingling, or weakness in her extremities. No difficulty with speech or swallowing. She takes Lopressor 100 mg twice a day, lisinopril 20 mg daily, and hydralazine 50 mg 3 times a day. She took an extra hydralazine just prior to leaving. She did not take any of her nighttime meds however typically takes them later than now. She denies any other acute complaints. - Related Data Home Medications Medication Instructions Recorded Confirmed Metoprolol Tartrate [Lopressor] 100 mg PO BID 05/14/15 04/02/18 metFORMIN HCL [Glucophage] 500 mg PO DAILY 07/02/15 04/02/18 Cholecalciferol [Vitamin D3] 2,000 unit PO DAILY@1200 #0 07/15/15 04/02/18 Cinnamon Bark [Cinnamon] 500 mg PO BID 07/15/15 04/02/18 Clopidogrel Bisulfate [Plavix] 75 mg PO DAILY 07/15/15 04/02/18 Ranitidine HCl [Zantac] 150 mg PO BID 07/15/15 04/02/18 Vits A,C,E/Lutein/Minerals 1 tab PO BID 07/15/15 04/02/18 [Ocuvite with Lutein Tablet] Acetaminophen Tab [Tylenol Tab] 650 mg PO Q6H PRN 04/05/17 04/02/18 Atorvastatin [Lipitor] 40 mg PO DAILY 04/05/17 04/02/18 Lisinopril [Zestril] 20 mg PO HS 04/14/17 04/02/18 Calcium Polycarbophil [Fibercon] 625 mg PO DAILY 04/02/18 04/02/18 Cranberry Fruit Extract [Cranberry] 200 mg PO DAILY 04/02/18 04/02/18 Folic Acid 1 mg PO DAILY 04/02/18 04/02/18 hydrALAZINE HCL [Apresoline] 50 mg PO TID 04/02/18 04/02/18 Previous Rx's Medication Instructions Recorded Aspirin 81 mg PO DAILY #1 chewable 07/04/15 Allergies Allergy/AdvReac Type Severity Reaction Status Date / Time amlodipine Allergy Anaphylaxis Verified 04/02/18 23:10 isosorbide mononitrate Allergy Rash/Hives Verified 04/02/18 23:10 [From Imdur] Review of Systems ROS Statement: Those systems with pertinent positive or pertinent negative responses have been documented in the HPI. ROS Other: All systems not noted in ROS Statement are negative. EKG Findings - EKG Comments: EKG Findings:: EKG showing normal sinus rhythm with a rate of 70. There is no abnormal ST segment changes or T-wave inversions. Intervals are normal. No ectopy. Past Medical History Past Medical History: Cancer, CVA/TIA, Diabetes Mellitus, GERD/Reflux, Hyperlipidemia, Hypertension, Osteoarthritis (OA), Syncope Additional Past Medical History / Comment(s): hx. osteoporosis, hiatal hernia, diverticulosis, polyps, cervical cancer, DJD, History of Any Multi-Drug Resistant Organisms: None Reported Past Surgical History: Back Surgery, Heart Catheterization, Hysterectomy Additional Past Surgical History / Comment(s): EGD, Colonoscopy, bilateral cataract removed, "fatty tumor" removed from her back. Past Anesthesia/Blood Transfusion Reactions: No Reported Reaction Additional Past Anesthesia/Blood Transfusion Reaction / Comment(s): Pt has never recieved blood. Past Psychological History: Anxiety Smoking Status: Former smoker Past Alcohol Use History: None Reported Past Drug Use History: None Reported - Past Family History Father Family Medical History: Myocardial Infarction (GA) Additional Family Medical History / Comment(s): Father of a GA at age 76yrs. Mother Family Medical History: CVA/TIA Additional Family Medical History / Comment(s): Mother had a CVA at age 88yrs. She at age 92yrs. General Exam - General Exam Comments Initial Comments: Constitutional: Awake alert Appears comfortable Head: Normocephalic atraumatic Eyes: no conjunctival injection No scleral icterus EOMI Neck: No JVD Supple Heart: Regular rate rhythm normal S1-S2 no murmurs Lungs: Clear to auscultation bilaterally No wheezing No rales Abdomen: Soft nondistended nontender Extremities: Non edematous DP pulses intact Radial pulses intact Neuro: A&Ox3, 5 out of 5 strength in upper and lower [place] bilaterally, sensation intact to light touch in all extremities, no ataxia with finger-nose and heel to hammer testing No focal neurologic deficits Psych: Appropriate mood and affect Limitations: no limitations Course Vital Signs 04/02/18 04/02/18 22:39 23:58 Temperature 97.8 F Pulse Rate 76 68 Respiratory 18 16 Rate Blood Pressure 210/76 191/79 O2 Sat by Pulse 97 98 Oximetry Chest Pain MDM - MDM This is a 77-year-old female presents emergency department for chest pain, headache, pounding in her neck. Patient was found to have a significantly elevated blood pressure. She was given her home dose of Lopressor 100 mg and lisinopril 20 mg. Blood pressure is gradually improving. The last one was 190/ 79. The patient states that she is feeling improved however continues to have a little bit of chest discomfort. Troponins negative. EKG not showing any ischemic changes. I feel that the patient's blood pressure we'll gradually decrease overnight. I do not want to give her any further medications as to lower her blood pressure too quickly. I spoke with Dr. Cartagena who accepts the admission and will evaluate the patient. Disposition Clinical Impression: Chest pain, Hypertensive urgency Disposition: ADMITTED IP TO THIS HOSP Condition: Stable
[2018-04-02 23:21] LABS: Basophils # (A) 0.1 k/uL (0-0.2); Basophils % (A) 1 %; Eosinophils # (A) 0.2 k/uL (0-0.7); Eosinophils % (A) 1 %; HCT 36.3 % (34.0-46.0); HGB 11.9 gm/dL (11.4-16.0); Lymphocytes # (A) 3.9 k/uL (1.0-4.8); Lymphocytes % (A) 34 %; MCH 25.8 pg (25.0-35.0); MCHC 32.8 g/dL (31.0-37.0); MCV 78.7 fL (80.0-100.0); Mean Platelet Volume 6.5; Monocytes # (A) 0.9 k/uL (0-1.0); Monocytes % (A) 8 %; Neutrophils # (A) 6.5 k/uL (1.3-7.7); Neutrophils % (A) 55 %; Platelet Count 374 k/uL (150-450); RBC 4.61 m/uL (3.80-5.40); WBC 11.7 k/uL (3.8-10.6)
[2018-04-02 23:34] LABS: ALT 37 U/L (9-52); AST 24 U/L (14-36); Albumin 4.4 g/dL (3.5-5.0); Alkaline Phosphatase 67 U/L (38-126); Anion Gap 14 mmol/L; Blood Urea Nitrogen 19 mg/dL (7-17); Calcium 9.9 mg/dL (8.4-10.2); Carbon Dioxide 22 mmol/L (22-30); Chloride 102 mmol/L (98-107); Glucose 133 mg/dL (74-99); Potassium 4.6 mmol/L (3.5-5.1); Sodium 138 mmol/L (137-145); Total Bilirubin 0.3 mg/dL (0.2-1.3); Total Protein 7.1 g/dL (6.3-8.2)
--- NOTE | 2018-04-02 23:39 | XR ---
EXAMINATION TYPE: XR chest 2V DATE OF EXAM: 04/02/2018 COMPARISON: 04/03/2017 HISTORY: Chest pain TECHNIQUE: Frontal and lateral views of the chest are obtained. FINDINGS: There is no heart failure nor confluent pneumonic infiltrate. Costophrenic angles are heather r. Mediastinum is normal. Thoracic aorta is atheromatous. There are chest leads. The bony thorax is i ntact. IMPRESSION: No active cardiopulmonary disease. No change.
[2018-04-02 23:42] LABS: Partial Thromboplastin Time 23.6 sec (22.0-30.0); Prothrombin Time 9.8 sec (9.0-12.0)
[2018-04-02 23:52] LABS: Creatine Kinase MB 0.7 ng/mL (0.0-2.4); Troponin I <0.012 ng/mL (0.000-0.034)
[2018-04-02] MEDS ORDERED: NITROGLYCERIN SL TABS 0.4 MG TAB SUBLINGUAL PRN (23:56)
[2018-04-03] VITALS: RESP 16
--- NOTE | 2018-04-03 01:29 | P.HPIM ---
History of Present Illness H&P Date: 04/03/18 Chief Complaint: Chest pain 77-year-old female with history of hypertension diabetes mellitus. Today 04/02 2018 around 10 PM patient noticed some chest discomfort for which she checked her blood pressure and found it elevated systolic blood pressure more than 210, this was associated with retrosternal chest discomfort described as pressure 8 out of 10 in severity associated with feeling nauseous and dizzy and slightly diaphoretic. This was not related to any activity. Patient denies any exertional dyspnea from before. She has history of non-STEMI with negative left heart cath done twice over the past 4 years. In the emergency department EKG showed no acute ST changes, troponins initially was negative. Patient has taken on a dose of hydralazine at home before coming to the hospital. Currently patient seen in the ER still reports some chest discomfort retrosternal 4 out of 10 in severity and nonradiating at this point. Otherwise patient denies any fevers chills shortness of breath, denies any abdominal pain diarrhea or constipation denies any GI bleeding denies any focal neurologic deficits Chest x-ray chest x-ray done in the ED was unremarkable Review of Systems Pertinent positives as noted in HPI. All other systems were reviewed and are negative Past Medical History Past Medical History: Cancer, CVA/TIA, Diabetes Mellitus, GERD/Reflux, Hyperlipidemia, Hypertension, Osteoarthritis (OA), Syncope Additional Past Medical History / Comment(s): hx. osteoporosis, hiatal hernia, diverticulosis, polyps, cervical cancer, DJD, History of Any Multi-Drug Resistant Organisms: None Reported Past Surgical History: Back Surgery, Heart Catheterization, Hysterectomy Additional Past Surgical History / Comment(s): EGD, Colonoscopy, bilateral cataract removed, "fatty tumor" removed from her back. Past Anesthesia/Blood Transfusion Reactions: No Reported Reaction Additional Past Anesthesia/Blood Transfusion Reaction / Comment(s): Pt has never recieved blood. Past Psychological History: Anxiety Smoking Status: Former smoker Past Alcohol Use History: None Reported Past Drug Use History: None Reported - Past Family History Father Family Medical History: Myocardial Infarction ([place]) Additional Family Medical History / Comment(s): Father of a [place] at age 76yrs. Mother Family Medical History: CVA/TIA Additional Family Medical History / Comment(s): Mother had a CVA at age 88yrs. She at age 92yrs. Medications and Allergies Home Medications Medication Instructions Recorded Confirmed Type Metoprolol Tartrate [Lopressor] 100 mg PO BID 05/14/15 04/02/18 History metFORMIN HCL [Glucophage] 500 mg PO DAILY 07/02/15 04/02/18 History Aspirin 81 mg PO DAILY #1 chewable 07/04/15 04/02/18 Rx Cholecalciferol [Vitamin D3] 2,000 unit PO DAILY@1200 #0 07/15/15 04/02/18 History Cinnamon Bark [Cinnamon] 500 mg PO BID 07/15/15 04/02/18 History Clopidogrel Bisulfate [Plavix] 75 mg PO DAILY 07/15/15 04/02/18 History Ranitidine HCl [Zantac] 150 mg PO BID 07/15/15 04/02/18 History Vits A,C,E/Lutein/Minerals 1 tab PO BID 07/15/15 04/02/18 History [Ocuvite with Lutein Tablet] Acetaminophen Tab [Tylenol Tab] 650 mg PO Q6H PRN 04/05/17 04/02/18 History Atorvastatin [Lipitor] 40 mg PO DAILY 04/05/17 04/02/18 History Lisinopril [Zestril] 20 mg PO HS 04/14/17 04/02/18 History Calcium Polycarbophil [Fibercon] 625 mg PO DAILY 04/02/18 04/02/18 History Cranberry Fruit Extract [Cranberry] 200 mg PO DAILY 04/02/18 04/02/18 History Folic Acid 1 mg PO DAILY 04/02/18 04/02/18 History hydrALAZINE HCL [Apresoline] 50 mg PO TID 04/02/18 04/02/18 History Allergies Allergy/AdvReac Type Severity Reaction Status Date / Time amlodipine Allergy Anaphylaxis Verified 04/02/18 23:10 isosorbide mononitrate Allergy Rash/Hives Verified 04/02/18 23:10 [From Imdur] Physical Exam Vitals: Vital Signs Temp Pulse Resp BP Pulse Ox 04/03/18 00:36 63 16 169/72 98 04/02/18 23:58 68 16 191/79 98 04/02/18 22:39 97.8 F 76 18 210/76 97 Intake and Output 04/02/18 04/02/18 04/03/18 14:59 22:59 06:59 Other: Weight 70.307 kg Constitutional: No acute distress, conversant, pleasant Eyes: Anicteric sclerae, moist conjunctiva, no lid-lag Pupils equal round reactive to light ENMT: NC/AT Oropharynx clear, no erythema, or exudates Neck: Supple, FROM, no masses, or JVD No carotid bruits No thyromegaly Lungs: Good breath sounds bilaterally, fine inspiratory rales at lung bases bilaterally Clear to percussion Normal respiratory effort, no accessory muscle use Cardiovascular: Heart regular in rate and rhythm, No murmurs, gallops, or rubs No peripheral edema Abdominal: Soft Nontender, no guarding, rebound or rigidity Abdomen moving with respiration Normoactive bowel sounds No hepatomegaly, No splenomegaly No palpable mass No abdominal wall hernia noted Skin: Normal temperature, tone, texture, turgor No induration No subcutaneous nodules No rash, lesions No ulcers Extremities: No digital cyanosis No clubbing Pedal pulses intact and symmetrical Radial pulses intact and symmetrical No calf tenderness Psychiatric: Alert and oriented to person, place and time Appropriate affect fair judgment Neuro Muscles Strength 4/5 in all 4 extremities Sensation to light touch grossly present throughout Cranial nerves II-XII grossly intact No focal sensory deficits Lymphatics: no palpable cervical or supraclavicular , or inguinal lymph nodes Results CBC & Chem 7: 04/02/18 22:49 04/02/18 22:49 Labs: Abnormal Lab Results - Last 24 Hours (Table) 04/02/18 04/02/18 Range/Units 22:49 22:49 WBC 11.7 H (3.8-10.6) k/uL MCV 78.7 L (80.0-100.0) fL BUN 19 H (7-17) mg/dL Glucose 133 H (74-99) mg/dL Assessment and Plan Assessment: 77-year-old female with history of hypertension and diabetes mellitus. Patient presented due to uncontrolled blood pressure symptomatic with chest pain. She was found to have hypertension with systolic blood pressure more than 200 along with retrosternal chest pressure. Patient was admitted for further management and to rule out of ACS. Plan: #Malignant hypertension #Chest pain rule out ACS Currently blood pressure trending down Continue home medications EKG showed no acute changes Cardiac enzymes negative, trend troponins Cardiac monitoring Cardiology consult #Diabetes mellitus type 2 Currently controlled Continue with insulin sliding scale #History of TIA Continue with aspirin and Plavix #DVT prophylaxis Heparin subcu 3 times a day Preformed a thorough record review from recent hospitalization most recent hospitalization in April last year for back surgery Surrogate decision-maker: Bobby CODE STATUS: Full code Discussed with: Patient, ER, RN Anticipated discharge: 24 hours patient presented with malignant hypertension, patient will be monitored for blood pressure control and to rule out ACS due to chest pain Anticipated discharge place: Home A total of 50 minutes were spent on the care of this complex patient more than 50% of the time was spent in counseling and care coordination.
[2018-04-03 01:58] VITALS: BMI 29.2
[2018-04-03 04:48] LABS: Cholesterol 96 mg/dL (<200); HDL Cholesterol 41 mg/dL (40-60); LDL Cholesterol,Calculated 37 mg/dL (0-99); Triglycerides 89 mg/dL (<150)
[2018-04-03 04:55] LABS: Creatine Kinase 42 U/L (30-135)
[2018-04-03 05:08] LABS: Creatine Kinase MB 0.6 ng/mL (0.0-2.4); Troponin I <0.012 ng/mL (0.000-0.034)
[2018-04-03 06:50] LABS: Glucose,Whole Blood 106 mg/dL (75-99)
[2018-04-03] MEDS ORDERED: INSULIN ASPART 100 UNIT/ML 1 ML 10 ML VIAL SQ SCH (07:30)
[2018-04-03] MEDS ORDERED: hydrALAZINE HCL 25 MG TAB PO SCH (09:00)
[2018-04-03] MEDS ORDERED: ASPIRIN 325 MG TAB PO SCH (09:00)
[2018-04-03] MEDS ORDERED: ASPIRIN 81 MG PO SCH (09:00)
[2018-04-03] MEDS ORDERED: HYDROCHLOROTHIAZIDE 25 MG TAB PO SCH (09:00)
[2018-04-03] MEDS ORDERED: CLOPIDOGREL 75 MG TAB PO SCH (09:00)
[2018-04-03] MEDS ORDERED: FAMOTIDINE 20 MG TAB PO SCH (09:00)
[2018-04-03] MEDS ORDERED: METOPROLOL TARTRATE 50 MG TAB PO SCH (09:00)
[2018-04-03] MEDS ORDERED: ATORVASTATIN 40 MG TAB PO SCH (09:00)
[2018-04-03] MEDS ORDERED: hydrALAZINE HCL 50 MG TAB PO SCH (09:00)
--- NOTE | 2018-04-03 11:22 | P.CRDCN ---
History of Present Illness History of present illness: Mrs. Padilla is a pleasant 77-year-old female past medical history of diffuse coronary artery disease with no significant stenosis, diabetes mellitus , hypertension, dyslipidemia, carotid artery disease and gastroesophageal reflux disease. She follows with Dr. Carias in the office. We have been asked to see her in consultation for elevated blood pressure. She states yesterday she felt a discomfort in her neck, fullness in her jaw and mouth as well as her pounding in her ears. She checked her blood pressure at home and it was over 200 systolic. She states she has struggled with her blood pressure in the past and was told if her blood pressure was elevated she could take an additional dose of hydralazine which she did at that time. The pressure was not coming down and she was continuing to feel discomfort in her neck jaw had an years so she came to the hospital for evaluation. She read to the hospital blood pressure was 210/76 heart rate 76 afebrile. Her blood pressure has come down nicely overnight and in this morning was 139/55 with a heart rate of 59. Soon as her blood pressure started going down the pounding in her ears, had an fullness in her mouth and neck subsided. She currently takes hydralazine 50 mg 3 times a day, lisinopril 20 mg daily and Lopressor 100 mg twice a day. EKG on arrival reveals sinus mechanism with no acute ST or T-wave abnormalities. Chest x-ray is negative for an acute cardiopulmonary process. Laboratory data reviewed, WBC 11.7, hemoglobin 11.9, platelets 374, sodium 138, potassium 4.6, creatinine 0.7, creatinine enzymes negative 2, LDL 37. Review of Systems At the time of my exam: CONSTITUTIONAL: Denies fever. Denies chills. EYES: Denies blurred vision. Denies vision changes. Denies eye pain. EARS, NOSE, MOUTH & THROAT: Denies headache. Denies sore throat. Denies ear pain. CARDIOVASCULAR: Denies chest pain. Denies shortness of breath. Denies orthopnea. Denies PND. Denies palpitations. RESPIRATORY: Denies cough. GASTROINTESTINAL: Denies abdominal pain. Denies diarrhea. Denies constipation. Denies nausea. Denies vomiting. MUSCULOSKELETAL: Denies myalgias. INTEGUMENTARY: Denies pruitis. Denies rash. NEUROLOGIC: Denies numbness. Denies tingling. Denies weakness. PSYCHIATRIC: Denies anxiety. Denies depression. ENDOCRINE: Denies fatigue. Denies weight change. Denies polydipsia. Denies polyurina. GENITOURINARY: Denies burning, hematuria or urgency with micturation. HEMATOLOGIC: Denies history of anemia. Denies bleeding. Past Medical History Past Medical History: Cancer, CVA/TIA, Diabetes Mellitus, GERD/Reflux, Hyperlipidemia, Hypertension, Osteoarthritis (OA), Syncope Additional Past Medical History / Comment(s): hx. osteoporosis, hiatal hernia, diverticulosis, polyps, cervical cancer, DJD, History of Any Multi-Drug Resistant Organisms: None Reported Past Surgical History: Back Surgery, Heart Catheterization, Hysterectomy Additional Past Surgical History / Comment(s): EGD, Colonoscopy, bilateral cataract removed, "fatty tumor" removed from her back. Past Anesthesia/Blood Transfusion Reactions: No Reported Reaction Additional Past Anesthesia/Blood Transfusion Reaction / Comment(s): Pt has never recieved blood. Past Psychological History: Anxiety Smoking Status: Former smoker Past Alcohol Use History: None Reported Past Drug Use History: None Reported - Past Family History Father Family Medical History: Myocardial Infarction ([place]) Additional Family Medical History / Comment(s): Father of a [place] at age 76yrs. Mother Family Medical History: CVA/TIA Additional Family Medical History / Comment(s): Mother had a CVA at age 88yrs. She at age 92yrs. Medications and Allergies Home Medications Medication Instructions Recorded Confirmed Type Metoprolol Tartrate [Lopressor] 100 mg PO BID 05/14/15 04/02/18 History metFORMIN HCL [Glucophage] 500 mg PO DAILY 07/02/15 04/02/18 History Aspirin 81 mg PO DAILY #1 chewable 07/04/15 04/02/18 Rx Cholecalciferol [Vitamin D3] 2,000 unit PO DAILY@1200 #0 07/15/15 04/02/18 History Cinnamon Bark [Cinnamon] 500 mg PO BID 07/15/15 04/02/18 History Clopidogrel Bisulfate [Plavix] 75 mg PO DAILY 07/15/15 04/02/18 History Ranitidine HCl [Zantac] 150 mg PO BID 07/15/15 04/02/18 History Vits A,C,E/Lutein/Minerals 1 tab PO BID 07/15/15 04/02/18 History [Ocuvite with Lutein Tablet] Acetaminophen Tab [Tylenol Tab] 650 mg PO Q6H PRN 04/05/17 04/02/18 History Atorvastatin [Lipitor] 40 mg PO DAILY 04/05/17 04/02/18 History Lisinopril [Zestril] 20 mg PO HS 04/14/17 04/02/18 History Calcium Polycarbophil [Fibercon] 625 mg PO DAILY 04/02/18 04/02/18 History Cranberry Fruit Extract [Cranberry] 200 mg PO DAILY 04/02/18 04/02/18 History Folic Acid 1 mg PO DAILY 04/02/18 04/02/18 History hydrALAZINE HCL [Apresoline] 50 mg PO TID 04/02/18 04/02/18 History Allergies Allergy/AdvReac Type Severity Reaction Status Date / Time amlodipine Allergy Anaphylaxis Verified 04/02/18 23:10 isosorbide mononitrate Allergy Rash/Hives Verified 04/02/18 23:10 [From Imdur] Physical Exam Vitals: Vital Signs Temp Pulse Pulse Pulse Resp BP BP 04/03/18 07:42 98.2 F 59 L 16 139/55 04/03/18 04:15 97.9 F 61 16 143/61 04/03/18 02:30 16 04/03/18 01:39 97.9 F 64 16 175/82 04/03/18 01:19 62 16 157/71 04/03/18 00:36 63 16 169/72 04/02/18 23:58 68 16 191/79 04/02/18 22:39 97.8 F 76 18 210/76 Pulse Ox 04/03/18 07:42 95 04/03/18 04:15 96 04/03/18 02:30 04/03/18 01:39 92 L 04/03/18 01:19 99 04/03/18 00:36 98 04/02/18 23:58 98 04/02/18 22:39 97 Intake and Output 04/02/18 04/03/18 04/03/18 22:59 06:59 14:59 Other: Voiding Method Toilet Toilet # Voids 1 Weight 70.307 kg 70.307 kg Blood pressure 139/55. 59 afebrile maintaining oxygen saturation on room air GENERAL: This is a 77-year-old occasion female in no apparent distress at the time of my examination. HEENT: Head is atraumatic, normocephalic. Pupils are equal, round. Sclerae anicteric. Conjunctivae are clear. Mucous membranes of the mouth are moist. Neck is supple. There is no jugular venous distention. Bilateral carotid bruit is heard. LUNGS: Clear to auscultation no wheezes, rales or rhonchi. No chest wall tenderness is noted on palpation or with deep breathing. HEART: Regular rate and rhythm with systolic ejection murmur, no rubs or gallops. S1 and S2 heard. ABDOMEN: Soft, nontender. Bowel sounds are heard. No organomegaly noted. EXTREMITIES: No evidence of peripheral edema and no calf tenderness noted. VASCULAR: Radial and dorsalis pedis pulses palpated, no evidence of clubbing. NEUROLOGIC: Patient is awake, alert and oriented x3. Results 04/02/18 22:49 04/02/18 22:49 Cardiac Enzymes 04/02/18 04/02/18 04/03/18 Range/Units 22:49 22:49 04:19 AST 24 (14-36) U/L CK-MB (CK-2) 0.7 0.6 (0.0-2.4) ng/mL Troponin I <0.012 <0.012 (0.000-0.034) ng/mL Coagulation 04/02/18 Range/Units 22:49 PT 9.8 (9.0-12.0) sec APTT 23.6 (22.0-30.0) sec Lipids 04/03/18 Range/Units 04:19 Triglycerides 89 (<150) mg/dL Cholesterol 96 (<200) mg/dL HDL Cholesterol 41 (40-60) mg/dL CBC 04/02/18 Range/Units 22:49 WBC 11.7 H (3.8-10.6) k/uL RBC 4.61 (3.80-5.40) m/uL Hgb 11.9 (11.4-16.0) gm/dL Hct 36.3 (34.0-46.0) % Plt Count 374 (150-450) k/uL Comprehensive Metabolic Panel 04/02/18 Range/Units 22:49 Sodium 138 (137-145) mmol/L Potassium 4.6 (3.5-5.1) mmol/L Chloride 102 (98-107) mmol/L Carbon Dioxide 22 (22-30) mmol/L BUN 19 H (7-17) mg/dL Creatinine 0.70 (0.52-1.04) mg/dL Glucose 133 H (74-99) mg/dL Calcium 9.9 (8.4-10.2) mg/dL AST 24 (14-36) U/L ALT 37 (9-52) U/L Alkaline Phosphatase 67 (38-126) U/L Total Protein 7.1 (6.3-8.2) g/dL Albumin 4.4 (3.5-5.0) g/dL Current Medications Generic Name Dose Route Start Last Admin Trade Name Freq PRN Reason Stop Dose Admin Aspirin 81 mg 04/03/18 09:00 04/03/18 10:29 Aspirin PO 81 mg DAILY [facility] Administration Atorvastatin Calcium 40 mg 04/03/18 09:00 04/03/18 10:22 Lipitor PO 40 mg DAILY [facility] Administration Clopidogrel Bisulfate 75 mg 04/03/18 09:00 04/03/18 10:22 Plavix PO 75 mg DAILY [facility] Administration Famotidine 20 mg 04/03/18 09:00 04/03/18 10:22 Pepcid PO 20 mg BID JOHN Administration Folic Acid 1 mg 04/03/18 12:00 04/03/18 10:22 Folic Acid PO 1 mg DAILY@1200 [facility] Administration Hydralazine HCl 75 mg 04/03/18 09:00 04/03/18 10:22 Apresoline PO 75 mg TID [facility] Administration Hydrochlorothiazide 25 mg 04/03/18 09:00 04/03/18 10:22 Hydrodiuril PO 25 mg DAILY [facility] Administration Insulin Aspart 0 unit 04/03/18 07:30 04/03/18 09:05 Novolog SQ Not Given ACHS [facility] Protocol Lisinopril 20 mg 04/03/18 21:00 Zestril PO HS [facility] Metoprolol Tartrate 100 mg 04/03/18 09:00 04/03/18 10:22 Lopressor PO 100 mg BID [facility] Administration Nitroglycerin 0.4 mg 04/02/18 23:56 Nitrostat SUBLINGUAL Q5M PRN Chest Pain Intake and Output 04/02/18 04/03/18 04/03/18 22:59 06:59 14:59 Other: Voiding Method Toilet Toilet # Voids 1 Weight 70.307 kg 70.307 kg 04/02/18 22:49 04/02/18 22:49 Assessment and Plan Assessment: ASSESSMENT 1. Hypertensive emergency 2. Diabetes mellitus 3. Dyslipidemia 4. Gastroesophageal reflux disease PLAN We will recommend increasing hydralazine to 75 mg 3 times a day as well as adding a small dose of hydrochlorothiazide 25 mg daily. Otherwise stable from a cardiac perspective. Follow-up with Dr. Carias in 2-3 weeks. She has been instructed to keep the blood pressure journal to take with her to her follow-up appointment. Thank you kindly for this consultation. Nurse Practitioner note has been reviewed, I agree with a documented findings and plan of care. Patient was seen and examined.
[2018-04-03 11:23] VITALS: BP 111/67; PULSE 58; TEMP 98.1
--- NOTE | 2018-04-03 11:29 | P.DS ---
Providers Date of admission: 04/03/18 00:00 Expected date of discharge: 04/03/18 Attending physician: Isa Gerardo MD Consults: 04/03/18 05:26 Consult Physician Routine Consulting Provider: [facility] Consult Reason/Comments: chest pain and hypertension Do you want consulting provider notified?: Yes, Notify in am Primary care physician: Gen Palma - Discharge Diagnosis(es) (1) Chest pain Current Visit: Yes Status: Acute (2) Hypertensive emergency Current Visit: Yes Status: Acute (3) Hyperlipidemia LDL goal <70 Current Visit: Yes Status: Acute (4) GERD (gastroesophageal reflux disease) Current Visit: Yes Status: Acute (5) Diabetes mellitus Current Visit: No Status: Acute Hospital Course: The patient is a 77-year-old female with a past medical history of hypertension diabetes that presented with chest pain she was placed in observation to rule out acute coronary syndrome her initial EKG was negative for any sedation of ischemia her initial and subsequent cardiac enzymes are also negative. The patient was noted to be in hypertensive emergency with severely elevated blood pressures systolically over 200, the patient's home and hypertensive regimen was restarted and her blood pressures gradually trended down, Cardiology was consulted and recommended titrating up her hydralazine to 75 mg by mouth 3 times a day and HCTZ 25 mg was also added to her regimen. The patient was continued on Plavix and aspirin. She was subsequently cleared by cardiology with recommendations for follow-up appointment in [address] Carias. This discharge process took approximately 30 minutes Patient Condition at Discharge: Stable Plan - Discharge Summary New Discharge Prescriptions: New hydrALAZINE HCL [Apresoline] 75 mg PO TID #90 tab Hydrochlorothiazide [Hydrodiuril] 25 mg PO DAILY #30 tab No Action Metoprolol Tartrate [Lopressor] 100 mg PO BID metFORMIN HCL [Glucophage] 500 mg PO DAILY Aspirin 81 mg PO DAILY #1 chewable Vits A,C,E/Lutein/Minerals [Ocuvite with Lutein Tablet] 1 tab PO BID Ranitidine HCl [Zantac] 150 mg PO BID Clopidogrel Bisulfate [Plavix] 75 mg PO DAILY Cinnamon Bark [Cinnamon] 500 mg PO BID Cholecalciferol [Vitamin D3] 2,000 unit PO DAILY@1200 #0 Atorvastatin [Lipitor] 40 mg PO DAILY Acetaminophen Tab [Tylenol Tab] 650 mg PO Q6H PRN PRN Reason: Pain Lisinopril [Zestril] 20 mg PO HS hydrALAZINE HCL [Apresoline] 50 mg PO TID Folic Acid 1 mg PO DAILY Calcium Polycarbophil [Fibercon] 625 mg PO DAILY Cranberry Fruit Extract [Cranberry] 200 mg PO DAILY Discharge Medication List Metoprolol Tartrate [Lopressor] 100 mg PO BID 05/14/15 [History] metFORMIN HCL [Glucophage] 500 mg PO DAILY 07/02/15 [History] Aspirin 81 mg PO DAILY #1 chewable 07/04/15 [Rx] Cholecalciferol [Vitamin D3] 2,000 unit PO DAILY@1200 #0 07/15/15 [History] Cinnamon Bark [Cinnamon] 500 mg PO BID 07/15/15 [History] Clopidogrel Bisulfate [Plavix] 75 mg PO DAILY 07/15/15 [History] Ranitidine HCl [Zantac] 150 mg PO BID 07/15/15 [History] Vits A,C,E/Lutein/Minerals [Ocuvite with Lutein Tablet] 1 tab PO BID 07/15/15 [ History] Acetaminophen Tab [Tylenol Tab] 650 mg PO Q6H PRN 04/05/17 [History] Atorvastatin [Lipitor] 40 mg PO DAILY 04/05/17 [History] Lisinopril [Zestril] 20 mg PO HS 04/14/17 [History] Calcium Polycarbophil [Fibercon] 625 mg PO DAILY 04/02/18 [History] Cranberry Fruit Extract [Cranberry] 200 mg PO DAILY 04/02/18 [History] Folic Acid 1 mg PO DAILY 04/02/18 [History] hydrALAZINE HCL [Apresoline] 50 mg PO TID 04/02/18 [History] Hydrochlorothiazide [Hydrodiuril] 25 mg PO DAILY #30 tab 04/03/18 [Rx] hydrALAZINE HCL [Apresoline] 75 mg PO TID #90 tab 04/03/18 [Rx] Follow up Appointment(s)/Referral(s): Kevin Carias MD [STAFF PHYSICIAN] - 04/17/18 4:15 pm
[2018-04-03 11:49] LABS: Creatine Kinase 40 U/L (30-135)
[2018-04-03] MEDS ORDERED: FOLIC ACID 1 MG TAB PO SCH (12:00)
[2018-04-03 12:01] LABS: Creatine Kinase MB 0.6 ng/mL (0.0-2.4); Troponin I <0.012 ng/mL (0.000-0.034)
[2018-04-03] MEDS ORDERED: LISINOPRIL 20 MG TAB PO SCH (21:00)
== END 2018-04-03 12:20 | disposition home or self-care (01) ==
LOC: EC 22:38 → 3OBS 04-03
PROVIDERS: ADMIT Internal Medicine; ATTEND Internal Medicine
DX: R07.89 Other chest pain (principal); I16.1 Hypertensive emergency; E78.5 Hyperlipidemia, unspecified; K21.9 Gastro-esophageal reflux disease without esophagitis; E11.9 Type 2 diabetes mellitus without complications; M54.9 Dorsalgia, unspecified; F41.9 Anxiety disorder, unspecified; R11.0 Nausea; R61 Generalized hyperhidrosis; I25.2 Old myocardial infarction; I10 Essential (primary) hypertension; I25.10 Atherosclerotic heart disease of native coronary artery without angina pectoris; I77.89 Other specified disorders of arteries and arterioles; Z87.891 Personal history of nicotine dependence; Z86.73 Personal history of transient ischemic attack (TIA), and cerebral infarction without residual deficits; M19.90 Unspecified osteoarthritis, unspecified site; M81.0 Age-related osteoporosis without current pathological fracture; Z85.41 Personal history of malignant neoplasm of cervix uteri; Z88.8 Allergy status to other drugs, medicaments and biological substances; Z79.84 Long term (current) use of oral hypoglycemic drugs; Z79.899 Other long term (current) drug therapy; Z79.82 Long term (current) use of aspirin; Z79.02 Long term (current) use of antithrombotics/antiplatelets
CPT/HCPCS: 99285 ×2; 36415; 93005; 80061; 80053; 82550; 82553 ×2; 84484 ×2; 85025; 85610; 85730; 71046; G0378

== ENCOUNTER → 2018-06-06 | Outpatient (CLI) | payer MEDICARE, BC ==
--- NOTE | 2018-06-07 14:07 | MM ---
Reason for exam: screening (asymptomatic). Last mammogram was performed 1 year ago. History: Patient is postmenopausal and has history of other cancer at age 35. Family history of breast cancer in maternal aunt at age 65. Benign right breast needle localzation of both breasts, June 18, 2013. Benign right mammotome panel of the right breast, May 07, 2013. Took estrogen for 10 years. Physical Findings: A clinical breast exam by your physician is recommended on an annual basis and results should be correlated with mammographic findings. MG 3D Screening Mammo W/Cad Bilateral CC and MLO view(s) were taken. Prior study comparison: May 24, 2017, bilateral MG 3d screening mammo w/cad. April 06, 2016, bilateral MG diagnostic mammo w CAD DARRIN. There are scattered fibroglandular densities. No significant changes when compared with prior studies. ASSESSMENT: Benign, BI-RAD 2 RECOMMENDATION: Routine screening mammogram of both breasts in 1 year.
== END | disposition home or self-care (01) ==
LOC: RADMAMWWP 09:46
PROVIDERS: ATTEND Family Medicine
DX: Z12.31 Encounter for screening mammogram for malignant neoplasm of breast (principal)
CPT/HCPCS: 77063; 77067

== ENCOUNTER → 2018-10-29 | Outpatient (CLI) | payer MEDICARE, BC ==
--- NOTE | 2018-10-29 16:36 | MR ---
EXAMINATION TYPE: MR shoulder LT wo con DATE OF EXAM: 10/29/2018 COMPARISON: Plain films 10/17/2018 HISTORY: Pain in left shoulder TECHNIQUE: Multiplanar, multisequence imaging of the left shoulder is performed without contrast. FINDINGS: Rotator Cuff: Small amount of fluid is in the subacromial bursa and subdeltoid bursa. Fluid surrounds the supraspinatus tendon. On the sagittal T2-weighted image there is some linear signal extending al martinez the undersurface of the supraspinatus tendon which could be an undersurface tear. Perforation is not entirely excluded but felt to be less likely. Series 301 image 13. Acromioclavicular Joint: No significant hypertrophy. There is some mild downward sloping of the acrom ion which can contribute to impingement. Glenohumeral Joint: Humeral head has normal orientation with the glenoid. Labrum: The labrum appears grossly intact given limitation of non-arthrogram study. Biceps Tendon: The long head of biceps is in normal location within bicipital groove. Bone marrow signal: No focal abnormal marrow signal is appreciated. Other: No additional significant abnormality is appreciated. IMPRESSION: Fluid around the supraspinatus tendon suggestive for moderate tendinosis. There is some linear signal which could suggest an undersurface tear.
== END | disposition home or self-care (01) ==
LOC: RADMRIMAIN 09:54
PROVIDERS: ATTEND Orthopaedic Surgery
DX: M25.512 Pain in left shoulder (principal)

== ENCOUNTER → 2018-12-17 | Outpatient (CLI) | payer MEDICARE, BC ==
--- NOTE | 2018-12-17 17:30 | US ---
EXAMINATION TYPE: US carotid duplex BILAT DATE OF EXAM: 12/17/2018 COMPARISON: 12/05/2017 CLINICAL HISTORY: R09.89 carotid bruit. HTN, hx of stroke >10 years ago EXAM MEASUREMENTS: RIGHT: Peak Systolic Velocity (PSV) cm/sec ----- Right CCA: 93.0 ----- Right ICA: 117.3 ----- Right ECA: 152.8 ICA/CCA ratio: 1.3 RIGHT: End Diastole cm/sec ----- Right CCA: 14.9 ----- Right ICA: 29.2 ----- Right ECA: 0.0 LEFT: Peak Systolic Velocity (PSV) cm/sec ----- Left CCA: 109.5 ----- Left ICA: 150.8 ----- Left ECA: 168.7 ICA/CCA ratio: 1.4 LEFT: End Diastole cm/sec ----- Left CCA: 16.3 ----- Left ICA: 20.7 ----- Left ECA: 0.0 VERTEBRALS (direction of flow): Right Vertebral: Antegrade and external carotid artery Left Vertebral: Antegrade Rhythm: Normal Bilateral wall thickening. Plaque seen in bilateral CCA's and bulbs. No significant stenosis. [place] anya right ECA, left ECA and mid ICA. IMPRESSION: 1. Findings indicating approximately 50% stenosis within the left internal carotid artery sternal c arotid arthritic could be further evaluated with CTA neck. 2. No hemodynamically significant stenosis seen within the right internal carotid artery or common ca rotid artery. Approximately 50% stenosis within the right external carotid artery is incidentally see n. Criteria for Assigning % of Stenosis / Diameter reduction (Estimation based on the indirect measurements of the internal carotid artery velocities (ICA PSV). 1. Normal (no stenosis)=ICA PSV < 125 cm/s: ratio < 2.0: ICA EDV<40 cm/s. 2. Less than 50% stenosis=ICA PSV < 125 cm/s: ratio < 2.0: ICA EDV<40 cm/s. 3. 50 to 69% stenosis=ICA PSV of 125 to 230 cm/s: ration 2.0 ? 4.0: ICA EDV 40-100 cm/s. 4. Greater than 70% stenosis to near occlusion= ICA PSV > 230 cm/s: ratio > 4.0: ICA EDV > 100 cm/s. 5. Near occlusion= ICA PSV velocities may be low or undetectable: variable ratio and ICA EDV. 6. Total occlusion=unable to detect flow.
== END | disposition home or self-care (01) ==
LOC: RADUSWWP 15:31
PROVIDERS: ATTEND Family Medicine
DX: I65.23 Occlusion and stenosis of bilateral carotid arteries (principal)
CPT/HCPCS: 93880

== ENCOUNTER → 2019-01-18 | Outpatient (CLI) | payer MEDICARE, BC ==
[2019-01-18 14:19] LABS: Magnesium 1.7 mg/dL (1.6-2.3); Potassium 4.5 mmol/L (3.5-5.1)
== END ==
LOC: LABPAT 12:27
PROVIDERS: ATTEND Internal Medicine Cardiovascular Disease
DX: Z01.812 Encounter for preprocedural laboratory examination (principal); I25.10 Atherosclerotic heart disease of native coronary artery without angina pectoris; Z98.890 Other specified postprocedural states
CPT/HCPCS: 80051; 82565; 82947; 83735; 84520

== ENCOUNTER → 2019-01-25 | Day surgery (SDC) | payer MEDICARE, BC ==
[2019-01-22 13:58] VITALS: BMI 29.2
[~2019-01-25] MED LIST changes: +ACETAMINOPHEN TAB 325 MG TAB PO PRN; -BACITRACIN 50,000 UNIT, POLYMYXIN B 500,000 UNIT in SODIUM CHLORIDE 0.9% IRRIGATIO 1,00... IRRIGATION ONE; +HYDROcodone/APAP 5-325MG 1 EACH TAB PO PRN; +LIDOCAINE 1% INJ 10MG/ML (20 ML MDV) ONE; +LIDOCAINE 1% INJ 10MG/ML (20 ML MDV) SQ ONE; +MIDAZOLAM 2 MG/2 ML VIAL IVP ONE; +SODIUM CHLORIDE 0.9% 1,000 ML IV SCH; -ceFAZolin 2 GM in SODIUM CHLORIDE 0.9% 100 ML IVPB ONE; +ceFAZolin IN SWFI 2 GM/20 ML SYRINGE IVP ONE; +fentaNYL (PF) 50 MCG/ML 2 ML AMP IVP ONE; +fentaNYL (PF) 50 MCG/ML 2 ML AMP ONE
[2019-01-25 07:58] VITALS: TEMP 97.7
[2019-01-25 08:18] LABS: Glucose,Whole Blood 130 mg/dL (75-99)
--- NOTE | 2019-01-25 10:14 | P.PCN ---
Date of Procedure: 01/25/19 Preoperative Diagnosis: History of loop recorder insertion. End of life Postoperative Diagnosis: Successful removal of loop recorder Procedure(s) Performed: Extraction of the loop recorder Description of Procedure: This 78-year-old female had a loop recorder insertion, 3 years ago. The loop recorder has reached end-of-life. Patient is advised to have removal of the recorder. Procedure: Patient was brought to the lab in a fasting state. She was prepped and draped in the usual fashion. She was given IV sedation with 0.5 mg of Versed and 25 g of fentanyl. The skin over the existing loop recorder was infiltrated with lidocaine. An incision was made on the medial and and loop recorder was extracted through the incision without difficulty. The incision was closed with silk sutures. Patient tolerated the procedure well. Plan: Patient will be discharged home. Patient will continue current medical therapy. She will also continue prophylactic antibiotics for 3 days. Follow-up in the office in one week
[2019-01-25 11:06] VITALS: BP 152/67; PULSE 71; RESP 16
== END | disposition home or self-care (01) ==
LOC: CATHEP 07:34
PROVIDERS: ATTEND Internal Medicine Cardiovascular Disease
DX: Z45.09 Encounter for adjustment and management of other cardiac device (principal); I48.0 Paroxysmal atrial fibrillation; I25.10 Atherosclerotic heart disease of native coronary artery without angina pectoris; I10 Essential (primary) hypertension; E78.2 Mixed hyperlipidemia; E11.9 Type 2 diabetes mellitus without complications; Z86.73 Personal history of transient ischemic attack (TIA), and cerebral infarction without residual deficits; Z88.8 Allergy status to other drugs, medicaments and biological substances; Z79.82 Long term (current) use of aspirin; Z79.01 Long term (current) use of anticoagulants; Z79.899 Other long term (current) drug therapy; Z79.84 Long term (current) use of oral hypoglycemic drugs; Z72.0 Tobacco use
CPT/HCPCS: 33286; C1769; J2250; J2001; J3010

== ENCOUNTER → 2019-08-08 | Outpatient (CLI) | payer MEDICARE, BC ==
--- NOTE | 2019-08-09 09:03 | MM ---
Reason for exam: screening (asymptomatic). Last mammogram was performed 1 year and 2 months ago. History: Patient is postmenopausal and has history of other cancer at age 35. Family history of breast cancer in maternal aunt at age 65. Benign right breast needle localzation of both breasts, June 18, 2013. Benign right mammotome panel of the right breast, May 07, 2013. Took estrogen for 10 years. Physical Findings: A clinical breast exam by your physician is recommended on an annual basis and results should be correlated with mammographic findings. MG 3D Screening Mammo W/Cad Bilateral CC and MLO view(s) were taken. Prior study comparison: June 06, 2018, bilateral MG 3d screening mammo w/cad. May 24, 2017, bilateral MG 3d screening mammo w/cad. The breast tissue is heterogeneously dense. This may lower the sensitivity of mammography. Stable benign calcifications. There is no discrete abnormality. No significant changes when compared with prior studies. ASSESSMENT: Benign, BI-RAD 2 RECOMMENDATION: Routine screening mammogram of both breasts in 1 year.
== END | disposition home or self-care (01) ==
LOC: RADMAMWWP 11:32
PROVIDERS: ATTEND Family Medicine
DX: Z12.31 Encounter for screening mammogram for malignant neoplasm of breast (principal)
CPT/HCPCS: 77063; 77067

== ENCOUNTER 2019-09-11 07:41 | Day surgery (SDC) | payer MEDICARE, BC ==
[~2019-09-11 07:41] MED LIST changes: -ACETAMINOPHEN TAB 325 MG TAB PO PRN; -HYDROcodone/APAP 5-325MG 1 EACH TAB PO PRN; +LACTATED RINGERS 1,000 ML IV SCH; -LIDOCAINE 1% INJ 10MG/ML (20 ML MDV) ONE; -LIDOCAINE 1% INJ 10MG/ML (20 ML MDV) SQ ONE; -MIDAZOLAM 2 MG/2 ML VIAL IVP ONE; -SODIUM CHLORIDE 0.9% 1,000 ML IV SCH; -ceFAZolin IN SWFI 2 GM/20 ML SYRINGE IVP ONE; -fentaNYL (PF) 50 MCG/ML 2 ML AMP IVP ONE; -fentaNYL (PF) 50 MCG/ML 2 ML AMP ONE
[2019-09-11 08:18] LABS: Glucose,Whole Blood 113 mg/dL (75-99)
[2019-09-11] MEDS ORDERED: PROPOFOL 10 MG/ML 20 ML VIAL IV ONE (08:18)
[2019-09-11 08:19] VITALS: RESP 16; TEMP 97.6
--- NOTE | 2019-09-11 08:49 | P.PCN ---
Date of Procedure: 09/11/19 Procedure(s) Performed: Brief history: Patient is a pleasant 79-year-old pleasant white female scheduled for an elective upper endoscopy as well as colonoscopy as a part of evaluation of GERD and positive cologuard. Procedure performed: Esophagogastroduodenoscopy Colonoscopy Preoperative diagnosis: GERD Positive cologuard Anesthesia: MAC Procedure: After informed consent was obtained from the patient was brought into the endoscopy unit and IV sedation was administered by anesthesia under continuous monitoring. Initially upper endoscopy was done. The Olympus GF 160 video endoscope was inserted inserted into the mouth and esophagus intubated without any difficulty and was gradually advanced into the stomach and duodenum and carefully examined. The bulb and second part of the duodenum appeared normal. Small periampullary diverticulum noted. The scope was then withdrawn into the stomach adequately insufflated with air and upon careful examination the antrum and body, cardia and fundus appeared normal. The scope was then withdrawn into the esophagus. The GE junction was located at 40 cm to the incisors. It appeared regular with no erythema erosions or ulcerations. Rest of the esophagus appeared normal. Patient tolerated the procedure well. At this time the patient continued to remain sedation. Initial digital rectal examination was normal. Olympus CF 160 video colonoscope was then inserted into the rectum and gradually advanced to the cecum without any difficulty. Careful examination was performed as the scope was gradually being withdrawn. The prep was excellent. The cecum, ascending colon, transverse colon, descending colon, sigmoid colon and rectum appeared normal. Moderate left-sided diverticulosis seen. Retroflexion was performed in the rectum and no lesions were noted. Patient tolerated the procedure well. Impression: 1. Upper endoscopy revealed small periampullary diverticulum. Otherwise unremarkable 2. Colonoscopy was essentially within normal limits with no evidence of colitis or colorectal neoplasia moderate sigmoid diverticulosis seen. Recommendations: Findings of this examination were discussed with the patient as well as her family.She was advised to be a high-fiber diet and take fiber supplements on a regular basis. She will continue with Prilosec 20 mg daily and follow antireflux measures.
[2019-09-11 09:09] VITALS: BP 126/57; PULSE 60
== END 2019-09-11 09:27 | disposition home or self-care (01) ==
LOC: ORWHC2ENDO 07:41
PROVIDERS: ATTEND Internal Medicine Gastroenterology
DX: K21.9 Gastro-esophageal reflux disease without esophagitis (principal); K31.4 Gastric diverticulum; K57.30 Diverticulosis of large intestine without perforation or abscess without bleeding; I48.91 Unspecified atrial fibrillation; I10 Essential (primary) hypertension; E11.9 Type 2 diabetes mellitus without complications; E78.5 Hyperlipidemia, unspecified; Z86.73 Personal history of transient ischemic attack (TIA), and cerebral infarction without residual deficits; Z79.82 Long term (current) use of aspirin; Z79.01 Long term (current) use of anticoagulants; Z79.84 Long term (current) use of oral hypoglycemic drugs; Z79.899 Other long term (current) drug therapy; Z98.890 Other specified postprocedural states
CPT/HCPCS: 45378; 43235; J2704

== ENCOUNTER 2019-09-21 18:16 | Inpatient (IN) | payer MEDICARE, BC ==
[2019-09-21] MEDS ORDERED: SODIUM CHLORIDE 0.9% 1,000 ML IV STA (19:15)
[2019-09-21] MEDS ORDERED: PANTOPRAZOLE 40 MG/10 ML VIAL IVP STA (19:15)
[2019-09-21] MEDS ORDERED: ONDANSETRON 4 MG/2 ML VIAL IVP STA ×2 (19:15→22:17)
--- NOTE | 2019-09-21 19:15 | ED ---
Abdominal Pain HPI - General Chief Complaint: Abdominal Pain Stated Complaint: Right Side Pain Time Seen by Provider: 09/21/19 18:46 Source: patient Mode of arrival: ambulatory Limitations: no limitations - History of Present Illness Initial Comments: Patient is 79-year-old female with history of diverticulitis presenting to emergency Department with a chief complaint of abdominal pain nausea vomiting. Patient reports she had a history of diverticulitis on the left side and states this pain is similar to that. Patient reports she developed a gradual onset of pain on the of right-sided abdominal pain. Patient reports the pain comes and goes in waves and currently is about a 6. She states today she became nauseous and had 2 episodes of nonbilious vomiting. Patient reports the pain is not related to oral intake. Patient denies night sweats fevers or chills. Patient denies a history of abdominal surgeries. Patient denies chest pain, shortness of breath, back pain. - Related Data Home Medications Medication Instructions Recorded Confirmed Metoprolol Tartrate [Lopressor] 100 mg PO QAM 05/14/15 09/10/19 metFORMIN HCL [Glucophage] 500 mg PO BID 07/02/15 09/10/19 Cholecalciferol [Vitamin D3 (25 2,000 unit PO DAILY@1200 #0 07/15/15 09/10/19 Mcg = 1000 Iu)] Cinnamon Bark [Cinnamon] 500 mg PO BID 07/15/15 09/10/19 Vits A,C,E/Lutein/Minerals 1 tab PO BID 07/15/15 09/10/19 [Ocuvite with Lutein Tablet] Acetaminophen Tab [Tylenol] 650 mg PO Q6H PRN 04/05/17 09/10/19 Atorvastatin [Lipitor] 40 mg PO HS 04/05/17 09/10/19 Lisinopril [Zestril] 20 mg PO HS 04/14/17 09/10/19 Rivaroxaban [Xarelto] 20 mg PO DAILY 01/22/19 09/10/19 Ferrous Sulfate [Iron (65 MG 1 tab PO DAILY 09/10/19 09/10/19 Elemental)] Hydrochlorothiazide [Hydrodiuril] 25 mg PO QAM 09/10/19 09/10/19 Omeprazole 20 mg PO HS 09/10/19 09/10/19 Previous Rx's Medication Instructions Recorded Aspirin 81 mg PO DAILY #1 chewable 07/04/15 hydrALAZINE HCL [Apresoline] 75 mg PO TID #90 tab 04/03/18 Nitrofurantoin Monohyd/M-Cryst 100 mg PO Q12HR #14 cap 09/21/19 [Macrobid] Allergies Allergy/AdvReac Type Severity Reaction Status Date / Time amlodipine Allergy Anaphylaxis Verified 09/10/19 09:34 isosorbide mononitrate Allergy Rash/Hives Verified 09/10/19 09:34 [From Imdur] Review of Systems ROS Statement: Those systems with pertinent positive or pertinent negative responses have been documented in the HPI. ROS Other: All systems not noted in ROS Statement are negative. Past Medical History Past Medical History: Atrial Fibrillation, Cancer, CVA/TIA, Diabetes Mellitus, GERD/Reflux, Hyperlipidemia, Hypertension, Osteoarthritis (OA), Syncope Additional Past Medical History / Comment(s): OSteoporosis, hiatal hernia, diverticulosis, polyps, cervical cancer, DJD, History of Any Multi-Drug Resistant Organisms: None Reported Past Surgical History: Back Surgery, Heart Catheterization, Hysterectomy Additional Past Surgical History / Comment(s): EGD, Colonoscopy, bilateral cataract removed, "fatty tumor" removed from her back. Past Anesthesia/Blood Transfusion Reactions: No Reported Reaction, Motion Sickness Additional Past Anesthesia/Blood Transfusion Reaction / Comment(s): Pt has never recieved blood. SON "CODED" POST HIP REPLACEMENT Past Psychological History: Anxiety Smoking Status: Former smoker Past Alcohol Use History: None Reported Past Drug Use History: None Reported - Past Family History Father Family Medical History: Myocardial Infarction (LA) Additional Family Medical History / Comment(s): Father of a LA at age 76yrs. Mother Family Medical History: CVA/TIA Additional Family Medical History / Comment(s): Mother had a CVA at age 88yrs. She at age 92yrs. General Exam Limitations: no limitations General appearance: alert, in no apparent distress Head exam: Present: atraumatic, normocephalic, normal inspection Eye exam: Present: normal appearance Pupils: Present: normal accommodation ENT exam: Present: normal exam, mucous membranes moist Neck exam: Present: normal inspection, full ROM Respiratory exam: Present: normal lung sounds bilaterally Cardiovascular Exam: Present: regular rate, normal rhythm, normal heart sounds GI/Abdominal exam: Present: soft, tenderness (Right-sided abdominal pain. Positive McBurney point tenderness. Negative Rovsing or obturator. Negative psoas.), normal bowel sounds. Absent: distended, guarding, rebound, rigid, organomegaly, mass, hernia Extremities exam: Present: normal inspection, full ROM Back exam: Present: normal inspection, full ROM Neurological exam: Present: alert, oriented X3 Psychiatric exam: Present: normal affect, normal mood Skin exam: Present: warm, dry, intact, normal color Course Vital Signs 09/21/19 09/21/19 18:18 22:11 Temperature 97.5 F L Pulse Rate 67 78 Respiratory 19 20 Rate Blood Pressure 190/74 127/73 O2 Sat by Pulse 97 94 L Oximetry Medical Decision Making - Medical Decision Making Patient is 79-year-old female presenting to emergency Department with a chief complaint of abdominal pain nausea vomiting. On exam patient does have right- sided abdominal tenderness with positive McBurney point but all other signs negative for appendicitis. Negative [place] sign. Patient does have leukocy tosis of 15.5 K. UA shows leukocyte esterase and nitrates. Although patient does not have CVA tenderness it is suspected a urinary tract infection. CT of the abdomen and pelvis shows diverticulosis without diverticulitis. A segment of the small intestine is also noted to have wall thickening possible for enteritis. Patient was given 2 mg of Rocephin, fluids and antiemetics. Upon discharge patient developed nausea vomiting and abdominal pain. Patient will not be admitted for observation. Admitting physician is Dr. Abdi. Case discussed with physician - Lab Data Result diagrams: 09/21/19 19:30 09/21/19 19:30 Lab Results 09/21/19 09/21/19 09/21/19 Range/Units 19:30 19:30 Unknown WBC 15.6 H (3.8-10.6) k/uL RBC 4.65 (3.80-5.40) m/uL Hgb 11.5 (11.4-16.0) gm/dL Hct 36.8 (34.0-46.0) % MCV 79.3 L (80.0-100.0) fL MCH 24.8 L (25.0-35.0) pg MCHC 31.3 (31.0-37.0) g/dL RDW 15.2 (11.5-15.5) % Plt Count 546 H (150-450) k/uL Neutrophils % 80 % Lymphocytes % 13 % Monocytes % 4 % Eosinophils % 1 % Basophils % 0 % Neutrophils # 12.5 H (1.3-7.7) k/uL Lymphocytes # 2.0 (1.0-4.8) k/uL Monocytes # 0.7 (0-1.0) k/uL Eosinophils # 0.2 (0-0.7) k/uL Basophils # 0.0 (0-0.2) k/uL Sodium 140 (137-145) mmol/L Potassium 4.9 (3.5-5.1) mmol/L Chloride 105 (98-107) mmol/L Carbon Dioxide 23 (22-30) mmol/L Anion Gap 12 mmol/L BUN 15 (7-17) mg/dL Creatinine 0.84 (0.52-1.04) mg/dL Est GFR (CKD-EPI)AfAm 76 (>60 ml/min/1.73 sqM) Est GFR (CKD-EPI)NonAf 66 (>60 ml/min/1.73 sqM) Glucose 140 H (74-99) mg/dL Calcium 10.5 H (8.4-10.2) mg/dL Total Bilirubin 0.4 (0.2-1.3) mg/dL AST 25 (14-36) U/L ALT 29 (9-52) U/L Alkaline Phosphatase 74 (38-126) U/L Total Protein 7.5 (6.3-8.2) g/dL Albumin 4.5 (3.5-5.0) g/dL Amylase 61 (30-110) U/L Lipase 113 (23-300) U/L Urine Color Yellow Urine Appearance Cloudy H (Clear) Urine pH 5.5 (5.0-8.0) Ur Specific Baird 1.028 (1.001-1.035) Urine Protein Trace H (Negative) Urine Glucose (UA) Negative (Negative) Urine Ketones Negative (Negative) Urine Blood Negative (Negative) Urine Nitrite Positive H (Negative) Urine Bilirubin Negative (Negative) Urine Urobilinogen <2.0 (<2.0) mg/dL Ur Leukocyte Esterase Large H (Negative) Urine RBC 2 (0-5) /hpf Urine WBC 32 H (0-5) /hpf Ur Squamous Epith Cells 7 H (0-4) /hpf Urine Bacteria Rare H (None) /hpf Hyaline Casts 3 H (0-2) /lpf Urine Mucus Rare H (None) /hpf Disposition Clinical Impression: Urinary tract infection, Abdominal pain Disposition: ADMITTED IP TO THIS HOSP Condition: Fair Instructions (If sedation given, give patient instructions): Abdominal Pain (ED) Additional Instructions: Please take prescribed medication as directed. Please follow with primary care. Physician to emergency department if symptoms worsen. Prescriptions: Nitrofurantoin Monohyd/M-Cryst [Macrobid] 100 mg PO Q12HR #14 cap Is patient prescribed a controlled substance at d/c from ED?: No Referrals: Gen Palma MD [Primary Care Provider] - 1-2 days Time of Disposition: 21:58
[2019-09-21 19:48] LABS: Basophils % (A) 0 %; Eosinophils # (A) 0.2 k/uL (0-0.7); Eosinophils % (A) 1 %; HCT 36.8 % (34.0-46.0); HGB 11.5 gm/dL (11.4-16.0); Lymphocytes % (A) 13 %; MCH 24.8 pg (25.0-35.0); MCHC 31.3 g/dL (31.0-37.0); MCV 79.3 fL (80.0-100.0); Mean Platelet Volume 6.8; Monocytes # (A) 0.7 k/uL (0-1.0); Monocytes % (A) 4 %; Neutrophils # (A) 12.5 k/uL (1.3-7.7); Neutrophils % (A) 80 %; Platelet Count 546 k/uL (150-450); RBC 4.65 m/uL (3.80-5.40); RDW 15.2 % (11.5-15.5); WBC 15.6 k/uL (3.8-10.6)
[2019-09-21 20:02] LABS: Albumin 4.5 g/dL (3.5-5.0); Calcium 10.5 mg/dL (8.4-10.2); Potassium 4.9 mmol/L (3.5-5.1); Total Bilirubin 0.4 mg/dL (0.2-1.3); Total Protein 7.5 g/dL (6.3-8.2)
[2019-09-21 21:09] LABS: Appearance,Urine Cloudy (Clear); Bacteria,Urine Rare /hpf; Bilirubin,Urine Negative (Negative); Blood,Urine Negative (Negative); Color,Urine Yellow; Glucose,Urine (UA) Negative (Negative); Hyaline Casts,Urine 3 /lpf (0-2); Ketones,Urine Negative (Negative); Leukocyte Esterase,Urine Large (Negative); Mucus,Urine Rare /hpf; Nitrite,Urine Positive (Negative); PH, Urine 5.5 (5.0-8.0); Protein,Urine Trace (Negative); RBC,Urine 2 /hpf (0-5); Specific Gravity,Urine 1.028 (1.001-1.035); Squamous Epithelial Cell,Urine 7 /hpf (0-4); Urobilinogen,Urine <2.0 mg/dL (<2.0); WBC,Urine 32 /hpf (0-5)
--- NOTE | 2019-09-21 21:25 | CT ---
EXAMINATION TYPE: CT abdomen pelvis w con DATE OF EXAM: 09/21/2019 COMPARISON: Chest CT 05/01/2017 HISTORY: Right sided abdominal pain, nausea and vomiting. CT DLP: 1000.6 mGycm Automated exposure control for dose reduction was used. TECHNIQUE: Helical acquisition of images was performed from the lung bases through the pelvis. CONTRAST: Performed without Oral Contrast and with IV Contrast, patient injected with 100ml mL of Isovue 300. FINDINGS: Evidence of prior granulomatous disease in the lungs with calcified granulomas and hilar lymph nodes. Coronary artery calcifications. Calcified granulomas are also noted throughout the liver and spleen. Geographic hypoattenuation withi n the left hepatic lobe measures 1.5 cm and likely represents cyst. There are bilateral adrenal nodul es measuring 1.2 cm each, unchanged from 2017 and likely represent adenomas. Pancreas is within jacob l limits. No calcified gallstones. No intra or extrahepatic biliary ductal dilatation. Symmetric renal enhancement without hydronephrosis. Nonobstructing left renal calculi. Bilateral low attenuated renal lesions, some are too small to characterize however others are consistent with simpl e cysts. Urinary bladder is within normal limits. The uterus is not visualized however what is thought to represent the ovaries are present. The stomach is distended with fluid. Duodenal diverticulum is noted approximating 4 cm. Proximal jeju nal loops are decompressed. Mid jejunal through proximal ileal small bowel loops are distended with f luid however not dilated; within the distal aspect of the distended small bowel loops is mottled meenakshi nal attenuation suspicious for fecalization (series 201 image 69) which can be seen with slow transit . Immediately distal to the fecalization is shouldering with small bowel wall thickening up to 6 mm ( series 202 image 32 and 33) extending for a relatively long segment, greater than 10 cm. Distal to th e small bowel segmental wall thickening are relatively decompressed ileal loops. Stool and air is see n throughout the colon. There are no findings of complete small bowel obstruction. There is free flui d within the abdomen and adjacent to the abnormal small bowel loops. Multiple colonic diverticula wit hout inflammatory changes. Aortoiliac vascular calcifications without aneurysm or ectasia. No suspicious mesenteric adenopathy. No aggressive osseous lesion. Incidental left L4 pars defect. Mild degenerative changes throughout th e lumbar spine are greatest in degree at L4-L5 where there is disc height loss and discogenic in plac e change. Lower lumbar spine facet arthropathy. IMPRESSION: 1. There is an area of relatively long segment (greater than 10 cm) small bowel wall thickening consi stent with nonspecific enteritis. Proximal to this abnormal segment are distended small bowel loops w ith evidence of slow small bowel transit however no overt findings of small bowel obstruction. Contin ued follow-up is recommended. 2. Colonic diverticulosis without diverticulitis.
[2019-09-21] MEDS ORDERED: cefTRIAXone IN SWFI 1,000 MG/10 ML SYRINGE IVP STA ×2 (21:57→21:58)
[2019-09-21] MEDS ORDERED: NALOXONE 0.4 MG/ML 1 ML VIAL IV PRN (22:31)
[2019-09-21] MEDS ORDERED: ONDANSETRON 4 MG/2 ML VIAL IVP PRN (22:31)
[2019-09-21] MEDS ORDERED: MORPHINE ORAL SOLN 10 MG/5 ML CUP PO PRN (22:31)
[2019-09-21] MEDS ORDERED: traMADol 50 MG TAB PO PRN (22:31)
[2019-09-21] MEDS ORDERED: ALPRAZolam 0.25 MG TAB PO PRN (22:31)
[2019-09-21] MEDS: Acetaminophen-Codeine 300-30mg TAB PO PRN (23:21)
[2019-09-21] MEDS: SODIUM CHLORIDE 0.9% 1,000 ML IV SCH (23:31)
[2019-09-22] MEDS ORDERED: METOCLOPRAMIDE 5 MG/ML 2 ML VIAL IVP STA ×2 (02:21→05:25)
[2019-09-22] MEDS ORDERED: diphenhydrAMINE 50 MG/ML 1 ML VIAL IVP STA (02:24)
--- NOTE | 2019-09-22 02:53 | P.HPIM ---
History of Present Illness H&P Date: 09/22/19 The patient is a 79-year-old female with a PMH of Afib (on Xarelto), hypertension, diabetes mellitus, hyperlipidemia who presented to the ED with complaints of right-sided abdominal pain. The patient notes that since yesterday, she has had intermittent cramping right-sided abdominal pain, occurring multiple times in the day, non-radiating, w/ no clear alleviating or exacerbating factors. The patient reported 2 episodes of nausea with vomiting earlier today. She denied diarrhea, dysuria, urinary frequency, fever, chills, chest pain, or SOB. She reports having recently been diagnosed with diver ticulosis a week ago. The pain occurs every few minutes, lasting a few seconds at a time. At time of the interview, she reports a pain level of 5/10. She denied any previous abdominal surgeries. She underwent an extensive evaluation in the emergency room with CT abdomen and pelvis with contrast showing small bowel enteritis. Laboratory evaluation revealed a WBC count of 15.6, hgb 11.5, sodium 140, potassium 4.9, BUN 15, creatinine 0.84, and a UA that was consistent with UTI. Review of Systems Pertinent positives and negatives as discussed in HPI, a complete review of systems was performed and all other systems are negative. Past Medical History Past Medical History: Atrial Fibrillation, Cancer, CVA/TIA, Diabetes Mellitus, GERD/Reflux, Hyperlipidemia, Hypertension, Osteoarthritis (OA), Syncope Additional Past Medical History / Comment(s): OSteoporosis, hiatal hernia, diverticulosis, polyps, cervical cancer, DJD, History of Any Multi-Drug Resistant Organisms: None Reported Past Surgical History: Back Surgery, Heart Catheterization, Hysterectomy Additional Past Surgical History / Comment(s): EGD, Colonoscopy, bilateral cataract removed, "fatty tumor" removed from her back. Past Anesthesia/Blood Transfusion Reactions: No Reported Reaction, Motion Sickness Additional Past Anesthesia/Blood Transfusion Reaction / Comment(s): Pt has never recieved blood. SON "CODED" POST HIP REPLACEMENT Past Psychological History: Anxiety Smoking Status: Former smoker Past Alcohol Use History: None Reported Past Drug Use History: None Reported - Past Family History Father Family Medical History: Myocardial Infarction ([place]) Additional Family Medical History / Comment(s): Father of a [place] at age 76yrs. Mother Family Medical History: CVA/TIA Additional Family Medical History / Comment(s): Mother had a CVA at age 88yrs. She at age 92yrs. Medications and Allergies Home Medications Medication Instructions Recorded Confirmed Type Metoprolol Tartrate [Lopressor] 100 mg PO QAM 05/14/15 09/21/19 History metFORMIN HCL [Glucophage] 500 mg PO BID 07/02/15 09/21/19 History Aspirin 81 mg PO DAILY #1 chewable 07/04/15 09/21/19 Rx Cholecalciferol [Vitamin D3 (25 2,000 unit PO DAILY@1200 #0 07/15/15 09/21/19 History Mcg = 1000 Iu)] Cinnamon Bark [Cinnamon] 500 mg PO BID 07/15/15 09/21/19 History Vits A,C,E/Lutein/Minerals 1 tab PO BID 07/15/15 09/21/19 History [Ocuvite with Lutein Tablet] Acetaminophen Tab [Tylenol] 650 mg PO Q6H PRN 04/05/17 09/21/19 History Atorvastatin [Lipitor] 40 mg PO HS 04/05/17 09/21/19 History Lisinopril [Zestril] 20 mg PO HS 04/14/17 09/21/19 History hydrALAZINE HCL [Apresoline] 75 mg PO TID #90 tab 04/03/18 09/21/19 Rx Rivaroxaban [Xarelto] 20 mg PO DAILY 01/22/19 09/21/19 History Ferrous Sulfate [Iron (65 MG 1 tab PO DAILY 09/10/19 09/21/19 History Elemental)] Hydrochlorothiazide [Hydrodiuril] 25 mg PO QAM 09/10/19 09/21/19 History Omeprazole 20 mg PO HS 09/10/19 09/21/19 History Allergies Allergy/AdvReac Type Severity Reaction Status Date / Time amlodipine Allergy Anaphylaxis Verified 09/21/19 22:42 isosorbide mononitrate Allergy Rash/Hives Verified 09/21/19 22:42 [From Imdur] Physical Exam Vitals: Vital Signs Temp Pulse Resp BP Pulse Ox 09/21/19 22:11 78 20 127/73 94 L 09/21/19 18:18 97.5 F L 67 19 190/74 97 Intake and Output 09/21/19 09/21/19 09/22/19 14:59 22:59 06:59 Other: Weight 71.078 kg General: non toxic, no distress, appears at stated age, overweight Derm: no unusual rashes/lesions no unusual ecchymoses, warm, dry Head: atraumatic, normocephalic, symmetric Eyes: EOMI, no lid lag, anicteric sclera, pupils equal round reactive to light ENT: Nose and ears atraumatic, no thrush, no pharyngeal erythema Neck: No thyromegaly, no cervical lymphadenopathy, trachea midline, supple Mouth: no lip lesion, mucus membranes moist Cardiovascular: S1S2 reg, no murmur, positive posterior tibial pulse bilateral, no edema, capillary refill less than 2 seconds Lungs: CTA bilateral, no rhonchi, no rales , no accessory muscle use Abdominal: soft, mild R sided abdominal tenderness, no guarding, no appreciable organomegaly, normal bowel sounds Ext: no gross muscle atrophy, muscle strength 5 out of 5 in all 4 extremities grossly, no contractures, Neuro: CN II-XI grossly intact, light touch intact all 4 extremities, finger to nose within normal limits, Psych: Alert, oriented, appropriate affect Results CBC & Chem 7: 09/21/19 19:30 09/21/19 19:30 Labs: Abnormal Lab Results - Last 24 Hours (Table) 09/21/19 09/21/19 09/21/19 Range/Units 19:30 19:30 Unknown WBC 15.6 H (3.8-10.6) k/uL MCV 79.3 L (80.0-100.0) fL MCH 24.8 L (25.0-35.0) pg Plt Count 546 H (150-450) k/uL Neutrophils # 12.5 H (1.3-7.7) k/uL Glucose 140 H (74-99) mg/dL Calcium 10.5 H (8.4-10.2) mg/dL Urine Appearance Cloudy H (Clear) Urine Protein Trace H (Negative) Urine Nitrite Positive H (Negative) Ur Leukocyte Esterase Large H (Negative) Urine WBC 32 H (0-5) /hpf Ur Squamous Epith Cells 7 H (0-4) /hpf Urine Bacteria Rare H (None) /hpf Hyaline Casts 3 H (0-2) /lpf Urine Mucus Rare H (None) /hpf Assessment and Plan Plan: Small bowel enteritis, likely viral -Hold off on any abxs at this time -Symptomatic management Abnormal UA -Patient denying any urinary complaints -Likely colonization Leukocytosis -Likely secondary to infection -Monitor for now Type 2 DM -C/w MARIELA with FS -Hold oral hypoglycemics CHronic conditions: Afib, HTN, HLD -C/w home meds DVT prophylaxis -Xarelto The patient is admitted with an anticipated less than 2 midnight stay for evaluation of abdominal pain CODE STATUS: Full Code Discussed with: Patient Anticipated discharge date: 1-[address]: Home A total of 35 minutes was spent on the care of this complex patient more than 50% of the time was spent in counseling and care coordination.
[2019-09-22 07:10] LABS: Glucose,Whole Blood 191 mg/dL (75-99)
[2019-09-22] MEDS: PANTOPRAZOLE 40 MG/10 ML VIAL IV SCH (07:26)
[2019-09-22] MEDS: hydrALAZINE HCL 25 MG TAB PO SCH ×3 (07:26→21:30)
[2019-09-22] MEDS: METOPROLOL TARTRATE 50 MG TAB PO SCH (07:26)
[2019-09-22] MEDS: ASPIRIN 81 MG PO SCH (07:26)
[2019-09-22] MEDS: HYDROCHLOROTHIAZIDE 25 MG TAB PO SCH (07:26)
[2019-09-22] MEDS: INSULIN ASPART (NovoLOG) 100 UNIT/ML VIAL SQ SCH ×3 (07:28→16:30)
[2019-09-22] MEDS: RIVAROXABAN 20 MG TAB PO SCH (07:42)
[2019-09-22 08:37] LABS: Basophils % (A) 0 %; Eosinophils % (A) 0 %; HCT 35.5 % (34.0-46.0); HGB 11.3 gm/dL (11.4-16.0); Hypochromasia Slight; Lymphocytes # (A) 0.6 k/uL (1.0-4.8); Lymphocytes % (A) 5 %; MCH 25.5 pg (25.0-35.0); MCHC 31.7 g/dL (31.0-37.0); MCV 80.4 fL (80.0-100.0); Mean Platelet Volume 6.4; Monocytes # (A) 0.7 k/uL (0-1.0); Monocytes % (A) 6 %; Neutrophils # (A) 10.3 k/uL (1.3-7.7); Neutrophils % (A) 88 %; Platelet Count 490 k/uL (150-450); RBC 4.42 m/uL (3.80-5.40); RDW 15.3 % (11.5-15.5); WBC 11.6 k/uL (3.8-10.6)
[2019-09-22] MEDS: SODIUM CHLORIDE 0.9% 1,000 ML IV SCH ×2 (09:16→23:33)
[2019-09-22 11:17] LABS: Glucose,Whole Blood 146 mg/dL (75-99)
--- NOTE | 2019-09-22 13:07 | P.PN ---
Progress Note - Text Progress Note Date: 09/22/19 Briefly this is a 79-year-old female that presented with right-sided abdominal pain with episodes of nausea and vomiting, workup with CT abdomen and pelvis showed small bowel enteritis, she was noted to have a white count of 15, and a UA consistent with urinary tract infection. The patient reported previously completing a 7 day course of Flagyl for diverticulitis. Urine cultures are pending we'll continue antibiotics with Rocephin and continue supportive therapies
[2019-09-22] MEDS: Acetaminophen-Codeine 300-30mg TAB PO PRN ×2 (14:18→23:35)
[2019-09-22 16:43] LABS: Glucose,Whole Blood 137 mg/dL (75-99)
[2019-09-22 20:38] LABS: Glucose,Whole Blood 109 mg/dL (75-99)
[2019-09-22] MEDS ORDERED: NON FORMULARY DRUG (Omeprazole [Omeprazole] 20 MG) PO SCH (21:00)
[2019-09-22] MEDS: LISINOPRIL 20 MG TAB PO SCH (21:30)
[2019-09-23 06:52] LABS: Basophils % (A) 0 %; Eosinophils # (A) 0.1 k/uL (0-0.7); Eosinophils % (A) 2 %; HCT 31.9 % (34.0-46.0); HGB 9.9 gm/dL (11.4-16.0); Hypochromasia Slight; Lymphocytes # (A) 2.7 k/uL (1.0-4.8); Lymphocytes % (A) 31 %; MCH 25.2 pg (25.0-35.0); MCV 81.5 fL (80.0-100.0); Mean Platelet Volume 6.4; Monocytes # (A) 0.9 k/uL (0-1.0); Monocytes % (A) 10 %; Neutrophils # (A) 4.7 k/uL (1.3-7.7); Neutrophils % (A) 54 %; Platelet Count 441 k/uL (150-450); RBC 3.91 m/uL (3.80-5.40); RDW 15.3 % (11.5-15.5); WBC 8.7 k/uL (3.8-10.6)
[2019-09-23 07:00] LABS: Glucose,Whole Blood 120 mg/dL (75-99)
[2019-09-23] MEDS: INSULIN ASPART (NovoLOG) 100 UNIT/ML VIAL SQ SCH ×3 (07:29→17:40)
[2019-09-23] MEDS: ASPIRIN 81 MG PO SCH (07:53)
[2019-09-23] MEDS: hydrALAZINE HCL 25 MG TAB PO SCH ×3 (07:54→20:50)
[2019-09-23] MEDS: Acetaminophen-Codeine 300-30mg TAB PO PRN ×2 (07:54→20:50)
[2019-09-23] MEDS: METOPROLOL TARTRATE 50 MG TAB PO SCH (07:54)
[2019-09-23] MEDS: HYDROCHLOROTHIAZIDE 25 MG TAB PO SCH (07:54)
[2019-09-23] MEDS: RIVAROXABAN 20 MG TAB PO SCH (07:56)
[2019-09-23] MEDS: PANTOPRAZOLE 40 MG/10 ML VIAL IV SCH (07:56)
[2019-09-23 11:50] LABS: Glucose,Whole Blood 116 mg/dL (75-99)
[2019-09-23] MEDS: LACTATED RINGERS 1,000 ML IV SCH (16:20)
[2019-09-23 17:20] LABS: Glucose,Whole Blood 107 mg/dL (75-99)
[2019-09-23 20:38] LABS: Glucose,Whole Blood 120 mg/dL (75-99)
[2019-09-23] MEDS: LISINOPRIL 20 MG TAB PO SCH (20:50)
[2019-09-24] MEDS: LACTATED RINGERS 1,000 ML IV SCH ×3 (03:06→22:35)
[2019-09-24 06:45] LABS: Glucose,Whole Blood 116 mg/dL (75-99)
[2019-09-24] MEDS: RIVAROXABAN 20 MG TAB PO SCH ×2 (08:34→10:19)
[2019-09-24] MEDS: PANTOPRAZOLE 40 MG/10 ML VIAL IV SCH (08:34)
[2019-09-24] MEDS: hydrALAZINE HCL 25 MG TAB PO SCH ×3 (08:34→22:28)
[2019-09-24] MEDS: METOPROLOL TARTRATE 50 MG TAB PO SCH (08:34)
[2019-09-24] MEDS: ASPIRIN 81 MG PO SCH (08:34)
--- NOTE | 2019-09-24 08:46 | P.CONS ---
History of Present Illness - Reason for Consult Consult date: 09/23/19 Enteritis Requesting physician: Ernie Abdi - Chief Complaint Abdominal pain, nausea and vomiting - History of Present Illness 79-year-old female with a medical history significant for hyperlipidemia, diabetes mellitus, hypertension and atrial fibrillation on Xarelto therapy presented to the hospital with reports of nausea, vomiting and abdominal pain. The patient reports right-sided abdominal pain described as a steady severe pain in the right upper quadrant of her abdomen. The pain has been present for approximately one day and was associated with 7 episodes of nausea and vomiting productive of the patient's previously food. She denies any sick contacts, , new medications, change in bowel habits or blood per rectum. Laboratory evaluation on presentation was significant for WBC of 15.6, hemoglobin 11.5 and computed tomography scan of the abdomen was significant for a nonspecific small bowel enteritis. Previously the patient has been treated for an episode of diverticulitis with Flagyl therapy. This occurred in July and the patient underwent endoscopic evaluation in 09/11/2019 with EGD significant for a periampullary diverticulum and colonoscopy significant for diverticulosis. Currently she is been diagnosed with a urinary tract infection and is on antibiotic therapy. 79-year-old female with a PMH of Afib (on Xarelto), hypertension, diabetes mellitus, hyperlipidemia who presented to the ED with complaints of right-sided abdominal pain. The patient notes that since yesterday, she has had intermittent cramping right-sided abdominal pain, occurring multiple times in the day, non-radiating, w/ no clear alleviating or exacerbating factors. The patient reported 2 episodes of nausea with vomiting earlier today. She denied diarrhea, dysuria, urinary frequency, fever, chills, chest pain, or SOB. She reports having recently been diagnosed with diverticulosis a week ago. The pain occurs every few minutes, lasting a few seconds at a time. At time of the interview, she reports a pain level of 5/10. She denied any previous abdominal surgeries. She underwent an extensive evaluation in the emergency room with CT abdomen and pelvis with contrast showing small bowel enteritis. Laboratory evaluation revealed a WBC count of 15.6, hgb 11.5, sodium 140, potassium 4.9, BUN 15, creatinine 0.84, and a UA that was consistent with UTI. Review of Systems REVIEW OF SYSTEMS: CONSTITUTIONAL: Denies any fevers, chills, weight change or fatigue. CARDIOVASCULAR: Denies any chest pain, palpitations high or low blood pressures RESPIRATORY: Denies any shortness of breath, hemoptysis or cough. GENITOURINARY: No dysuria or hematuria, but urinalysis consistent with GI tract infection. MUSCULOSKELETAL: No weakness reported. SKIN: Denies any new rashes or lesions, jaundice or pallor. PSYCHIATRIC: Denies any depression or anxiety. NEUROLOGY: Denies headache, denies any new focal deficits. EARS/NOSE/THROAT: No recent hearing change, congestion, nasal discharge or sore throat. EYES: No pain in eyes, discharge or change in vision. GASTROINTESTINAL: As per HPI. Past Medical History Past Medical History: Atrial Fibrillation, Cancer, CVA/TIA, Diabetes Mellitus, GERD/Reflux, Hyperlipidemia, Hypertension, Osteoarthritis (OA), Syncope Additional Past Medical History / Comment(s): OSteoporosis, hiatal hernia, diver ticulosis, polyps, cervical cancer, DJD, History of Any Multi-Drug Resistant Organisms: None Reported Past Surgical History: Back Surgery, Heart Catheterization, Hysterectomy Additional Past Surgical History / Comment(s): EGD, Colonoscopy, bilateral cataract removed, "fatty tumor" removed from her back. Past Anesthesia/Blood Transfusion Reactions: No Reported Reaction, Motion Sickness Additional Past Anesthesia/Blood Transfusion Reaction / Comm: Pt has never recieved blood. SON "CODED" POST HIP REPLACEMENT Past Psychological History: Anxiety Additional Psychological History / Comment(s): Pt lives alone. 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 She uses no assistive devices or home care. She drives. Smoking Status: Former smoker Past Alcohol Use History: None Reported Additional Past Alcohol Use History / Comment(s): Pt states she smoked for about 52 yrs 1 ppd and eventually up to 1 1/2 ppd but quit in 2008. Past Drug Use History: None Reported - Past Family History Father Family Medical History: Myocardial Infarction ([place]) Additional Family Medical History / Comment(s): Father of a [place] at age 76yrs. Mother Family Medical History: CVA/TIA Additional Family Medical History / Comment(s): Mother had a CVA at age 88yrs. She at age 92yrs. Medications and Allergies Home Medications Medication Instructions Recorded Confirmed Type Metoprolol Tartrate [Lopressor] 100 mg PO QAM 05/14/15 09/21/19 History metFORMIN HCL [Glucophage] 500 mg PO BID 07/02/15 09/21/19 History Aspirin 81 mg PO DAILY #1 chewable 07/04/15 09/21/19 Rx Cholecalciferol [Vitamin D3 (25 2,000 unit PO DAILY@1200 #0 07/15/15 09/21/19 History Mcg = 1000 Iu)] Cinnamon Bark [Cinnamon] 500 mg PO BID 07/15/15 09/21/19 History Vits A,C,E/Lutein/Minerals 1 tab PO BID 07/15/15 09/21/19 History [Ocuvite with Lutein Tablet] Acetaminophen Tab [Tylenol] 650 mg PO Q6H PRN 04/05/17 09/21/19 History Atorvastatin [Lipitor] 40 mg PO HS 04/05/17 09/21/19 History Lisinopril [Zestril] 20 mg PO HS 04/14/17 09/21/19 History hydrALAZINE HCL [Apresoline] 75 mg PO TID #90 tab 04/03/18 09/21/19 Rx Rivaroxaban [Xarelto] 20 mg PO DAILY 01/22/19 09/21/19 History Ferrous Sulfate [Iron (65 MG 1 tab PO DAILY 09/10/19 09/21/19 History Elemental)] Hydrochlorothiazide [Hydrodiuril] 25 mg PO QAM 09/10/19 09/21/19 History Omeprazole 20 mg PO HS 09/10/19 09/21/19 History Allergies Allergy/AdvReac Type Severity Reaction Status Date / Time amlodipine Allergy Anaphylaxis Verified 09/21/19 22:42 isosorbide mononitrate Allergy Rash/Hives Verified 09/21/19 22:42 [From Imdur] Physical Exam Vitals: Vital Signs Temp Pulse Resp BP Pulse Ox 09/23/19 07:15 17 09/23/19 07:00 98.5 F 69 17 150/69 92 L 09/23/19 01:40 99.1 F 09/23/19 00:50 100.1 F H 75 16 109/62 93 L 09/22/19 21:30 73 133/63 09/22/19 20:17 99.4 F 63 16 128/68 94 L Intake and Output 09/23/19 09/23/19 09/23/19 06:59 14:59 22:59 Intake Total 590 240 Balance 590 240 Intake: Oral 590 240 Other: Voiding Method Toilet # Voids 2 On physical examination, patient appears comfortable in no apparent distress. HEAD: Normocephalic, atraumatic. EYES: No scleral icterus. No conjunctival injection. MOUTH: No lesions, tongue midline. NECK: Trachea midline, no gross abnormalities. CHEST: Clear to auscultation with no wheezing or rhonchi appreciated. HEART: S1-S2 appreciated. No murmurs appreciated. ABDOMEN: Soft, mildly tender to palpation. Bowel sounds are positive. No organomegaly. No guarding or rigidity. EXTREMITIES: No pedal edema. SKIN: No rashes, no jaundice. NEUROLOGIC: Alert and oriented x3. No focal deficits. Results CBC & Chem 7: 09/23/19 06:15 09/21/19 19:30 Labs: Abnormal Lab Results - Last 24 Hours (Table) 09/22/19 09/22/19 09/23/19 Range/Units 16:18 20:27 06:15 Hgb 9.9 L (11.4-16.0) gm/dL Hct 31.9 L (34.0-46.0) % POC Glucose (mg/dL) 137 H 109 H (75-99) mg/dL C-Reactive Protein (<10.0) mg/L 09/23/19 09/23/19 09/23/19 Range/Units 06:45 10:51 11:38 Hgb (11.4-16.0) gm/dL Hct (34.0-46.0) % POC Glucose (mg/dL) 120 H 116 H (75-99) mg/dL C-Reactive Protein 41.3 H (<10.0) mg/L Microbiology - Last 24 Hours (Table) 09/21/19 Unknown Urine Culture - Preliminary Urine,Voided Gram Neg Bacilli CT scan - abdomen: report reviewed (Computed tomography scan of the abdomen with findings of a nonspecific small bowel enteritis and colonic diverticulosis without diverticulitis.) Assessment and Plan (1) Enteritis Narrative/Plan: 79-year-old female presented to the hospital with complaints of abdominal pain, nausea and vomiting. She describes right abdominal pain in the upper and lower abdomen. She was recently treated in July for an episode of diverticulitis with Flagyl therapy. This was followed with EGD and colonoscopy on the findings of a periampullary diverticulum on EGD and colonic diverticulosis colonoscopy. She denies any change in her bowel habits or blood per rectum. No sick contacts or new medications. She is currently being treated for urinary tract infection. Computed tomography scan of the abdomen was significant for a nonspecific small bowel enteritis colonic diverticulosis. Unknown etiology with suspicion for possible bacterial or viral enteritis. However patient is reporting had no further bowel movements or flatus since presentation at this time we'll plan on conservative management with suspicion for possible ileus. Current Visit: Yes Status: Acute Code(s): K52.9 - NONINFECTIVE GASTROENTERITIS AND COLITIS, UNSPECIFIED SNOMED Code(s): 10440548 (2) Nausea and vomiting Current Visit: Yes Status: Acute Code(s): R11.2 - NAUSEA WITH VOMITING, UNSPECIFIED SNOMED Code(s): 87308492 (3) Diverticulosis Current Visit: Yes Status: Acute Code(s): K57.90 - DVRTCLOS OF INTEST, PART UNSP, W/O PERF OR ABSCESS W/O BLEED SNOMED Code(s): 807816845 (4) Abdominal pain Current Visit: Yes Status: Acute Code(s): R10.9 - UNSPECIFIED ABDOMINAL PAIN SNOMED Code(s): 02090569 Plan: Supportive care We'll change diet to nothing by mouth except for ice chips and sips of water as the patient is currently stating she is not passing any bowel movements or having flatus Repeat x-ray in the morning to rule out ileus or bowel obstruction Continue medical management of urinary tract infection Prior endoscopic report reviewed Continue PPI therapy Continue IV fluid hydration Encourage ambulation Case discussed with the patient at length Thank you for allowing us to participate in the care of this patient we will continue to follow
[2019-09-24 09:52] LABS: Basophils % (A) 0 %; Eosinophils # (A) 0.1 k/uL (0-0.7); Eosinophils % (A) 1 %; HCT 31.5 % (34.0-46.0); Hypochromasia Moderate; Lymphocytes # (A) 1.4 k/uL (1.0-4.8); Lymphocytes % (A) 13 %; MCH 25.7 pg (25.0-35.0); MCHC 31.6 g/dL (31.0-37.0); MCV 81.3 fL (80.0-100.0); Monocytes # (A) 0.9 k/uL (0-1.0); Monocytes % (A) 8 %; Neutrophils # (A) 8.5 k/uL (1.3-7.7); Neutrophils % (A) 76 %; Platelet Count 415 k/uL (150-450); RBC 3.87 m/uL (3.80-5.40); RDW 14.8 % (11.5-15.5); WBC 11.1 k/uL (3.8-10.6)
--- NOTE | 2019-09-24 10:12 | XR ---
Abdomen HISTORY: Pain or graph frontal view of the abdomen on [address] scan 09/21/2019 Multiple air-fluid levels are present. There is no evident pneumoperitoneum. There are vascular calci fications, splenic calcifications consistent with old granulomatous disease. Bone mineralization is n ormal. IMPRESSION: Correlate for enteritis, follow-up as indicated if small bowel obstruction is suspected c beth.
[2019-09-24] MEDS: INSULIN ASPART (NovoLOG) 100 UNIT/ML VIAL SQ SCH ×3 (10:20→18:20)
[2019-09-24 11:44] LABS: Glucose,Whole Blood 121 mg/dL (75-99)
[2019-09-24] MEDS ORDERED: BENZOCAINE SPRAY 1 CAN MUCOUS MEM PRN (15:42)
--- NOTE | 2019-09-24 16:33 | XR ---
Abdomen HISTORY: NG tube placement Frontal view of the abdomen submitted and correlated to prior exam and same dated earlier time. There is been interval placement of an NG tube which is coiled in left upper quadrant overlying the s tomach. Dilated loops of small bowel are again noted. No evident pneumoperitoneum. IMPRESSION: Satisfactory NG tube placement. Correlate for small bowel obstruction, ileus or enteritis .
[2019-09-24 16:48] LABS: Glucose,Whole Blood 94 mg/dL (75-99)
[2019-09-24] MEDS: LISINOPRIL 20 MG TAB PO SCH (22:28)
[2019-09-24] MEDS: Acetaminophen-Codeine 300-30mg TAB PO PRN (22:28)
--- NOTE | 2019-09-24 23:01 | PN ---
PROGRESS NOTE DATE OF SERVICE: 09/24/2019. PRESENTING COMPLAINT: Abdominal distention, pain. INTERVAL HISTORY: The patient is admitted with abdominal pain, cramping. Diagnosed to have acute ileitis with ileus. Has a CT scan abdomen showed small bowel enteritis. Today-lying in bed. Still having abdominal pain, not severe. Some nausea, no vomiting. Has not passed any flatus or bowel movement. Abdomen is still distended. REVIEW OF SYSTEMS: Done for constitutional, cardiovascular, GI, pulmonary; relevant findings as above. CURRENT MEDICATIONS: Reviewed they include IV ceftriaxone, lactated Ringer's. Xarelto. PHYSICAL EXAMINATION: VITAL SIGNS: Temperature 98.2, pulse 72, respiration 16, blood pressure 121/60, pulse ox 94 percent on room air. GENERAL APPEARANCE: Lying in bed, a bit uncomfortable. EYES: Pupils equal. Conjunctivae normal. NECK: JVD unable to assess. Mass not palpable. RESPIRATORY effort normal. LUNGS slightly decreased breath sounds. CARDIOVASCULAR: 1st and 2nd sounds. No edema. ABDOMEN: Distended, soft, hyperactive bowel sounds. Diffuse tenderness. No guarding or rigidity. Liver and spleen not palpable. PSYCHIATRY: Alert and oriented x3. Mood and affect normal. INVESTIGATIONS: White count 11.1, hemoglobin 10, platelets 415. Abdominal x-ray film personally reviewed by me shows small bowel to be distended with multiple air-fluid levels. CT scan of the abdomen on presentation had shown small bowel wall thickening consistent with nonspecific enteritis and also showed colonic diverticulosis. ASSESSMENT: 1. Acute small-bowel ileus, possibly from underlying enteritis, slow to respond. 2. Colonic diverticulosis, asymptomatic. 3. Normocytic anemia, cause unknown cause unknown. 4. Persistent atrial fibrillation chronically on Xarelto. 5. Diabetes mellitus type 2 on oral hypoglycemic. 6. Essential hypertension. 7. Hyperlipidemia. 8. Primary osteoarthritis. 9. Hiatal hernia. 10.Hiatal hernia. 11.Acute urinary tract infection with cystitis. PLAN: I had a talk with the patient. The patient has not been improving for the last 3 days. We will put an NG tube. Patient has been seen by Gastroenterology. Patient is getting IV ceftriaxone for the UTI. Repeat electrolytes in the morning. MMODL / IJN: [id number] /
[2019-09-25 00:19] LABS: Glucose,Whole Blood 83 mg/dL (75-99)
[2019-09-25] MEDS: Acetaminophen-Codeine 300-30mg TAB PO PRN ×2 (04:41→21:48)
[2019-09-25 06:59] LABS: Glucose,Whole Blood 68 mg/dL (75-99)
[2019-09-25 07:19] LABS: African American GFR (CKD) >90 (>60 ml/min/1.73 sqM); Anion Gap 10 mmol/L; Blood Urea Nitrogen 12 mg/dL (7-17); Calcium 8.5 mg/dL (8.4-10.2); Carbon Dioxide 21 mmol/L (22-30); Chloride 107 mmol/L (98-107); Glucose 65 mg/dL (74-99); Non-African American GFR(CKD) 83 (>60 ml/min/1.73 sqM); Potassium 3.5 mmol/L (3.5-5.1); Sodium 138 mmol/L (137-145)
[2019-09-25] MEDS: hydrALAZINE HCL 25 MG TAB PO SCH ×3 (08:47→21:45)
[2019-09-25] MEDS: METOPROLOL TARTRATE 50 MG TAB PO SCH (08:47)
[2019-09-25] MEDS: ASPIRIN 81 MG PO SCH (08:47)
[2019-09-25] MEDS: LACTATED RINGERS 1,000 ML IV SCH ×3 (08:48→23:34)
[2019-09-25] MEDS: RIVAROXABAN 20 MG TAB PO SCH (08:48)
[2019-09-25] MEDS: INSULIN ASPART (NovoLOG) 100 UNIT/ML VIAL SQ SCH ×3 (08:48→18:02)
--- NOTE | 2019-09-25 09:31 | P.PN ---
Subjective Progress Note Date: 09/24/19 Principal diagnosis: Abdominal pain, distension, enteritis Patient lying in bed still reporting some abdominal pain and distension. Lengthy conversation regarding NG tube placement. Objective - Vital Signs Vital signs: Vital Signs Temp 98.2 F 09/24/19 07:06 Pulse 87 09/24/19 07:47 Resp 16 09/24/19 07:06 BP 164/70 09/24/19 07:06 Pulse Ox 92 L 09/24/19 07:06 Intake & Output 09/23/19 09/24/19 09/24/19 18:59 06:59 18:59 Intake Total 240 75 Balance 240 75 Intake: Intake, IV Titration 75 Amount Sodium Chloride 0.9% 1, 75 000 ml @ 75 mls/hr IV . [id number] [facility] Rx#:[id number] Oral 240 Other: Voiding Method Toilet Toilet Toilet # Voids 2 2 - Exam On physical examination, patient appears comfortable in no apparent distress. HEAD: Normocephalic, atraumatic. EYES: No scleral icterus. No conjunctival injection. MOUTH: No lesions, tongue midline. NECK: Trachea midline, no gross abnormalities. CHEST: Clear to auscultation with no wheezing or rhonchi appreciated. HEART: S1-S2 appreciated. ABDOMEN: Soft, mildly tender to palpation and mildly distended. Bowel sounds are positive. No organomegaly. No guarding or rigidity. EXTREMITIES: No pedal edema. SKIN: No rashes, no jaundice. NEUROLOGIC: Alert and oriented x3. No focal deficits. - Labs CBC & Chem 7: 09/24/19 09:22 09/25/19 06:36 Labs: Abnormal Lab Results - Last 24 Hours (Table) 09/23/19 09/23/19 09/24/19 Range/Units 17:08 20:36 06:44 WBC (3.8-10.6) k/uL Hgb (11.4-16.0) gm/dL Hct (34.0-46.0) % Neutrophils # (1.3-7.7) k/uL POC Glucose (mg/dL) 107 H 120 H 116 H (75-99) mg/dL 09/24/19 09/24/19 Range/Units 09:22 11:42 WBC 11.1 H (3.8-10.6) k/uL Hgb 10.0 L (11.4-16.0) gm/dL Hct 31.5 L (34.0-46.0) % Neutrophils # 8.5 H (1.3-7.7) k/uL POC Glucose (mg/dL) 121 H (75-99) mg/dL Microbiology - Last 24 Hours (Table) 09/21/19 Unknown Urine Culture - Final Urine,Voided Escherichia coli Assessment and Plan (1) Enteritis Narrative/Plan: 79-year-old female presented to the hospital with complaints of abdominal pain, nausea and vomiting. She describes right abdominal pain in the upper and lower abdomen. She was recently treated in July for an episode of diverticulitis with Flagyl therapy. This was followed with EGD and colonoscopy on 09/11/plan the findings of a periampullary diverticulum on EGD and colonic diverticulosis colonoscopy. She denies any change in her bowel habits or blood per rectum. No sick contacts or new medications. She is currently being treated for urinary tract infection. Computed tomography scan of the abdomen was significant for a nonspecific small bowel enteritis colonic diverticulosis. Unknown etiology with suspicion for possible bacterial or viral enteritis. However patient is reporting had no further bowel movements or flatus since presentation at this time we'll plan on conservative management with suspicion for possible ileus. Current Visit: Yes Status: Acute Code(s): K52.9 - NONINFECTIVE GASTROENTERITIS AND COLITIS, UNSPECIFIED SNOMED Code(s): 29303535 (2) Nausea and vomiting Current Visit: Yes Status: Acute Code(s): R11.2 - NAUSEA WITH VOMITING, UNSPECIFIED SNOMED Code(s): 10767007 (3) Diverticulosis Current Visit: Yes Status: Acute Code(s): K57.90 - DVRTCLOS OF INTEST, PART UNSP, W/O PERF OR ABSCESS W/O BLEED SNOMED Code(s): 732817840 (4) Abdominal pain Current Visit: Yes Status: Acute Code(s): R10.9 - UNSPECIFIED ABDOMINAL PAIN SNOMED Code(s): 08925604 Plan: Supportive care NPO Repeat x-ray in the morning NG tube placement Continue medical management of urinary tract infection Prior endoscopic report reviewed Continue PPI therapy Continue IV fluid hydration Encourage ambulation Case discussed with the patient at length Thank you for allowing us to participate in the care of this patient we will continue to follow
[2019-09-25 11:23] LABS: Glucose,Whole Blood 98 mg/dL (75-99)
--- NOTE | 2019-09-25 12:44 | XR ---
EXAMINATION TYPE: XR abdomen 1V DATE OF EXAM: 09/25/2019 12:23 PM CLINICAL HISTORY: Abdominal pain and distention TECHNIQUE: Single supine KUB image of the abdomen is obtained. COMPARISON: 09/24/2019. FINDINGS: As seen on the exam of 09/24/2019 there are multiple dilated loops of centralized small bow el stacking upon one another measuring up to 4.7 cm, similar in caliber to the prior. Incomplete visu alization of the upper abdomen supine imaging limits evaluation for pneumoperitoneum. Degenerative ch anges of the lumbosacral junction. Enteric tube is not imaged. IMPRESSION: Persistent dilated loops of centralized small bowel concerning for small bowel obstructio n.
[2019-09-25 17:32] LABS: Glucose,Whole Blood 114 mg/dL (75-99)
[2019-09-25] MEDS: LISINOPRIL 20 MG TAB PO SCH (21:45)
--- NOTE | 2019-09-25 21:52 | P.PN ---
Subjective Progress Note Date: 09/25/19 Principal diagnosis: Abdominal pain, distension, enteritis Patient lying in bed still reporting abdominal distention. She does report passing some flatus. No bowel movements reported. Objective - Vital Signs Vital signs: Vital Signs Temp 98.8 F 09/25/19 07:00 Pulse 79 09/25/19 07:00 Resp 18 09/25/19 07:00 BP 137/57 09/25/19 07:00 Pulse Ox 92 L 09/25/19 07:00 Intake & Output 09/24/19 09/25/19 09/25/19 18:59 06:59 18:59 Intake Total 900 Output Total 250 Balance 650 Intake: Intake, IV Titration 900 Amount Lactated Ringers 1,000 ml 900 @ 125 mls/hr IV .Q8H JOHN Rx#:[id number] Output: Gastric Drainage 250 Other: Voiding Method Toilet Toilet # Voids 1 1 - Exam On physical examination, patient appears comfortable in no apparent distress. HEAD: Normocephalic, atraumatic. EYES: No scleral icterus. No conjunctival injection. MOUTH: No lesions, tongue midline. NECK: Trachea midline, no gross abnormalities. CHEST: Clear to auscultation with no wheezing or rhonchi appreciated. HEART: S1-S2 appreciated. ABDOMEN: Soft, mildly tender to palpation and mildly distended. Bowel sounds are positive. No organomegaly. No guarding or rigidity. EXTREMITIES: No pedal edema. SKIN: No rashes, no jaundice. NEUROLOGIC: Alert and oriented x3. No focal deficits. - Labs CBC & Chem 7: 09/24/19 09:22 09/25/19 06:36 Labs: Abnormal Lab Results - Last 24 Hours (Table) 09/24/19 09/25/19 09/25/19 Range/Units 11:42 06:36 06:53 Carbon Dioxide 21 L (22-30) mmol/L Glucose 65 L (74-99) mg/dL POC Glucose (mg/dL) 121 H 68 L (75-99) mg/dL Microbiology - Last 24 Hours (Table) 09/23/19 15:30 Blood Culture - Preliminary Blood No Growth after 24 hours 09/21/19 Unknown Urine Culture - Final Urine,Voided Escherichia coli Assessment and Plan (1) Enteritis Narrative/Plan: 79-year-old female presented to the hospital with complaints of abdominal pain, nausea and vomiting. She describes right abdominal pain in the upper and lower abdomen. She was recently treated in July for an episode of diverticulitis with Flagyl therapy. This was followed with EGD and colonoscopy on the findings of a periampullary diverticulum on EGD and colonic diverticulosis colonoscopy. She denies any change in her bowel habits or blood per rectum. No sick contacts or new medications. She is currently being treated for urinary tract infection. Computed tomography scan of the abdomen was significant for a nonspecific small bowel enteritis colonic diverticulosis. Unknown etiology with suspicion for possible bacterial or viral enteritis. However patient is reporting had no further bowel movements or with minimal flatus since presentation and x-ray imaging concerning for ileus versus obstruction. Current Visit: Yes Status: Acute Code(s): K52.9 - NONINFECTIVE GASTROENTER ITIS AND COLITIS, UNSPECIFIED SNOMED Code(s): 62367305 (2) Nausea and vomiting Current Visit: Yes Status: Acute Code(s): R11.2 - NAUSEA WITH VOMITING, UNSPECIFIED SNOMED Code(s): 76921095 (3) Diverticulosis Current Visit: Yes Status: Acute Code(s): K57.90 - DVRTCLOS OF INTEST, PART UNSP, W/O PERF OR ABSCESS W/O BLEED SNOMED Code(s): 015592921 (4) Abdominal pain Current Visit: Yes Status: Acute Code(s): R10.9 - UNSPECIFIED ABDOMINAL PAIN SNOMED Code(s): 76751748 Plan: Supportive care NPO Repeat x-ray in the morning NG tube placement on low intermittent suction Continue medical management of urinary tract infection Prior endoscopic report reviewed Continue PPI therapy Continue IV fluid hydration Encourage ambulation If symptoms persist with no improvement may benefit from surgical consult for further evaluation Thank you for allowing us to participate in the care of this patient we will continue to follow
--- NOTE | 2019-09-25 23:23 | P.PN ---
Progress Note - Text Progress Note Date: 09/25/19 Interval history: This patient was admitted with abdominal pain and cramping, diagnosed of acute ileitis with ileus. Computed tomography scan of the abdomen showed small bowel enteritis. NG tube was placed yesterday. Today-abdomen still distended.: A bit softer. She has positive flatus. No nausea vomiting. Review of systems: Was done for constitutional, cardiovascular, GI, pulmonary. relevant finding as above Active Medications Acetaminophen/Codeine Phosphate (Tylenol #3) 1 each PO Q4HR PRN PRN Reason: Moderate Pain Last Admin: 09/25/19 21:48 Dose: 1 each Documented by: Alprazolam (Xanax) 0.25 mg PO Q6HR PRN PRN Reason: Anxiety Aspirin (Aspirin) 81 mg PO DAILY [facility] Last Admin: 09/25/19 08:47 Dose: 81 mg Documented by: Benzocaine (Hurricaine [place]) 1 spray MUCOUS MEM QID PRN PRN Reason: Mouth Irritation Last Admin: 09/24/19 22:35 Dose: 1 spray Documented by: Hydralazine HCl (Apresoline) 75 mg PO TID [facility] Last Admin: 09/25/19 21:45 Dose: 75 mg Documented by: Ceftriaxone Sodium 1 gm/ (Sodium Chloride) 50 mls @ 100 mls/hr IVPB Q24HR [facility] Last Admin: 09/25/19 08:47 Dose: 100 mls/hr Documented by: Lactated Ringer's (Lactated Ringers) 1,000 mls @ 125 mls/hr IV .Q8H [facility] Last Admin: 09/25/19 17:16 Dose: Not Given Documented by: Insulin Aspart (Novolog) 0 unit SQ AC-TID [facility]; Protocol Last Admin: 09/25/19 18:02 Dose: Not Given Documented by: Lisinopril (Zestril) 20 mg PO HS [facility] Last Admin: 09/25/19 21:45 Dose: 20 mg Documented by: Metoprolol Tartrate (Lopressor) 100 mg PO QAM [facility] Last Admin: 09/25/19 08:47 Dose: 100 mg Documented by: Naloxone HCl (Narcan) 0.2 mg IV Q2M PRN PRN Reason: Opioid Reversal Ondansetron HCl (Zofran) 4 mg IVP Q8HR PRN PRN Reason: Nausea And Vomiting Rivaroxaban (Xarelto) 20 mg PO DAILY [facility] Last Admin: 09/25/19 08:48 Dose: 20 mg Documented by: Tramadol HCl (Ultram) 50 mg PO Q6H PRN PRN Reason: Moderate Pain Physical examination: VITAL SIGNS: 97.8, 80, 18, 148/71, 94% on room air GENERAL: Laying in bed, awake. EYES: Pupils equal. Conjunctiva normal. HEENT: External appearance of nose and ears normal, oral cavity dry with NG tube in place. NECK: JVD not raised; masses not palpable. HEART: First and second heart sounds are normal; no edema. LUNGS: Respiratory rate normal; clear to auscultation. ABDOMEN: Soft, distended, hyperactive bowel sounds, no guarding or rigidity nontender, liver spleen not palpable, no masses palpable. PSYCH: Alert and oriented x3; mood and affect normal. INVESTIGATIONS, reviewed in the clinical context: Potassium 3.5 creatinine 0.70 [id number]-23, 98 Abdominal [id number] air-fluid levels Assessment: -Acute small bowel ileus possibly from underlying antritis slow to respond with x-ray still showing multiple air fluid levels -Tonic diverticulosis-asymptomatic -Normocytic anemia cause unknown -Persistent atrial fibrillation chronically and Xarelto -Diabetes mellitus type 2 on oral hypoglycemic, uncontrolled with hypoglycemia -Essential hypertension -Hyperlipidemia -Primary osteoarthritis -Hiatal hernia -Acute UTI with cystitis Plan: Discussed with Dr. Tucker. Continue with NG tube. Patient is on low intermittent suction. We'll also get a surgical opinion. Repeat labs in the morning. Care discussed with the patient.
[2019-09-25 23:44] LABS: Glucose,Whole Blood 150 mg/dL (75-99)
[2019-09-25] MEDS: DEXTROSE 5%-0.9% NACL 1,000 ML IV SCH (23:57)
[2019-09-26 05:56] LABS: Glucose,Whole Blood 128 mg/dL (75-99)
[2019-09-26] MEDS: INSULIN ASPART (NovoLOG) 100 UNIT/ML VIAL SQ SCH ×3 (07:32→17:09)
[2019-09-26] MEDS: METOPROLOL TARTRATE 50 MG TAB PO SCH (07:49)
[2019-09-26] MEDS: RIVAROXABAN 20 MG TAB PO SCH (07:49)
[2019-09-26] MEDS: Acetaminophen-Codeine 300-30mg TAB PO PRN ×2 (07:50→22:31)
[2019-09-26] MEDS: hydrALAZINE HCL 25 MG TAB PO SCH ×3 (07:50→21:12)
[2019-09-26] MEDS: ASPIRIN 81 MG PO SCH (07:50)
--- NOTE | 2019-09-26 11:09 | XR ---
EXAMINATION TYPE: XR abdomen 2V DATE OF EXAM: 09/26/2019 COMPARISON: 09/25/2019 HISTORY: Abdominal distention TECHNIQUE: One view abdominal series FINDINGS: The osseous structures are intact. The bowel gas pattern is nonspecific. Dilated small bowel loops w ith air-fluid levels in a pattern suggestive of obstruction. NG tube noted. Degenerative change lower lumbar spine. Bilateral lower lobe infiltrate and small effusion. Calcifications in the upper abdome n are indeterminate. Density overlying the right inferior pubic ramus appears to be superficial to th e patient. IMPRESSION: 1. Nonspecific abdomen most typical small bowel obstruction. 2. Bilateral infiltrate and small effusion.
[2019-09-26 11:38] LABS: Glucose,Whole Blood 143 mg/dL (75-99)
--- NOTE | 2019-09-26 12:46 | P.GSCN ---
<Lorene Doty - Last Filed: 09/26/19 12:45> History of Present Illness Consult date: 09/26/19 Reason for Consult: small bowel obstruction Requesting physician: Rojas Ronquillo History of present illness: CHIEF COMPLAINT: Small bowel obstruction HISTORY OF PRESENT ILLNESS: 79-year-old female who presented to the emergency room with abdominal pain, nausea, vomiting. Patient reports abdominal pain started approximately one week ago. CT and pelvis completed on 09/21/2019 revealed an area of relatively long small bowel thickening (greater than 10 cm) consistent with nonspecific enteritis. Proximal to this abnormal segment are distended small bowel loops with evidence of slow small bowel transit however no overt signs of a small bowel obstruction. Colonic diverticulosis without diverticulitis. Patient currently has NG tube in place to low intermittent suction. She has been nothing by mouth. She denies nausea. She reports passing flatus and having a formed bowel movement today. She has been followed by GI services during hospitalization. Most recent abdominal x-ray reveals dilated small bowel loops with air-fluid levels in a pattern suggestive of obstruction. Patient reports an episode of diverticulitis in July 2019 and was treated with antibiotics per her primary care physician. Patient underwent EGD and colonoscopy with Dr. Jaquez in August 2019 revealing small per iampullary diverticulum. Colonoscopy was essentially within normal limits with no evidence of colitis or colorectal neoplasm. Moderate sigmoid diverticulosis seen. PAST MEDICAL HISTORY: See list. PAST SURGICAL HISTORY: See list. MEDICATIONS: See list. ALLERGIES: See list. SOCIAL HISTORY: No illicit drug use. REVIEW OF SYSTEMS: CONSTITUTIONAL: Denies fever or chills. HEENT: Denies blurred vision, vision changes, or eye pain. Denies hemoptysis ENDOCRINE: Denies heat or cold intolerance. CARDIOVASCULAR: Denies chest pain or pressure. RESPIRATORY: No shortness of breath. GASTROINTESTINAL: Denies abdominal pain. Denies nausea or vomiting. NEURO: Denies history of seizures. PSYCH: No depression or suicidal ideation HEMATOLOGIC: Denies bleeding disorders. LYMPHATIC: The patient denies any lumps and bumps around the neck. GENITOURINARY: Denies any blood in urine or increased urinary frequency. MUSCULOSKELETAL: Denies myalgias. Denies joint swelling. Denies decreased range of motion beyond patients baseline. SKIN: Denies pruitis. Denies rash. PHYSICAL EXAM: VITAL SIGNS: Reviewed GENERAL: Well-developed in no acute distress. HEENT: NG tube to low intermittent suction. No sclera icterus. Extraocular movements grossly intact. Moist buccal mucosa. Head is atraumatic, normocephalic. Hears conversational speech. No nasal d rainage. NECK: Supple without lymphadenopathy. CHEST: Non-labored respirations and equal bilateral excursions. CARDIOVASCULAR: Regular rate with regular rhythm. Palpable 2+ radial pulses. ABDOMEN: Soft. Nondistended. Mild diffuse tenderness with palpation. No peritonitis. MUSCULOSKELETAL: No clubbing or cyanosis. NEUROLOGIC: No focal or lateralizing signs. Cranial nerves II through XII grossly intact. PSYCH: Appropriate affect. Alert and oriented to person, place and time. SKIN: Well perfused. Good skin turgor. LABORATORY DATA: Most recent laboratory data reveals white count 11.1. Hemoglobin 10.0. Platelet count 415. Sodium 130. Potassium 3.5. BUN 12. Creatinine 0.70. C- reactive protein 41.3. IMAGIN. CT and pelvis completed on 09/21/2019 revealed an area of relatively long small bowel thickening (greater than 10 cm) consistent with nonspecific enteritis. Proximal to this abnormal segment are distended small bowel loops with evidence of slow small bowel transit however no overt signs of a small bowel obstruction. Colonic diverticulosis without diverticulitis. 2. Most recent abdominal x-ray reveals dilated small bowel loops with air-fluid levels in a pattern suggestive of obstruction. ASSESSMENT: 1. Enteritis with greater than 10cm small bowel thickening 2. Diverticulosis 3. History of diverticulitis PLAN: Discontinue NG tube Trial clear liquid diet Further recommendations pending patient course Nurse practitioner note has been reviewed by physician. Signing provider agrees with the documented findings, assessment, and plan of care. Past Medical History Past Medical History: Atrial Fibrillation, Cancer, CVA/TIA, Diabetes Mellitus, GERD/Reflux, Hyperlipidemia, Hypertension, Osteoarthritis (OA), Syncope Additional Past Medical History / Comment(s): OSteoporosis, hiatal hernia, diverticulosis, polyps, cervical cancer, DJD, History of Any Multi-Drug Resistant Organisms: None Reported Past Surgical History: Back Surgery, Heart Catheterization, Hysterectomy Additional Past Surgical History / Comment(s): EGD, Colonoscopy, bilateral cataract removed, "fatty tumor" removed from her back. Past Anesthesia/Blood Transfusion Reactions: No Reported Reaction, Motion Sickness Additional Past Anesthesia/Blood Transfusion Reaction / Comm: Pt has never recieved blood. SON "CODED" POST HIP REPLACEMENT Past Psychological History: Anxiety Additional Psychological History / Comment(s): Pt lives alone. 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 She uses no assistive devices or home care. She drives. Smoking Status: Former smoker Past Alcohol Use History: None Reported Additional Past Alcohol Use History / Comment(s): Pt states she smoked for about 52 yrs 1 ppd and eventually up to 10 16/ ppd but quit in 2008. Past Drug Use History: None Reported - Past Family History Father Family Medical History: Myocardial Infarction (DC) Additional Family Medical History / Comment(s): Father of a DC at age 76yrs. Mother Family Medical History: CVA/TIA Additional Family Medical History / Comment(s): Mother had a CVA at age 88yrs. She at age 92yrs. Medications and Allergies Home Medications Medication Instructions Recorded Confirmed Type Metoprolol Tartrate [Lopressor] 100 mg PO QAM 05/14/15 09/21/19 History metFORMIN HCL [Glucophage] 500 mg PO BID 07/02/15 09/21/19 History Aspirin 81 mg PO DAILY #1 chewable 07/04/15 09/21/19 Rx Cholecalciferol [Vitamin D3 (25 2,000 unit PO DAILY@1200 #0 07/15/15 09/21/19 History Mcg = 1000 Iu)] Cinnamon Bark [Cinnamon] 500 mg PO BID 07/15/15 09/21/19 History Vits A,C,E/Lutein/Minerals 1 tab PO BID 07/15/15 09/21/19 History [Ocuvite with Lutein Tablet] Acetaminophen Tab [Tylenol] 650 mg PO Q6H PRN 04/05/17 09/21/19 History Atorvastatin [Lipitor] 40 mg PO HS 04/05/17 09/21/19 History Lisinopril [Zestril] 20 mg PO HS 04/14/17 09/21/19 History hydrALAZINE HCL [Apresoline] 75 mg PO TID #90 tab 04/03/18 09/21/19 Rx Rivaroxaban [Xarelto] 20 mg PO DAILY 01/22/19 09/21/19 History Ferrous Sulfate [Iron (65 MG 1 tab PO DAILY 09/10/19 09/21/19 History Elemental)] Hydrochlorothiazide [Hydrodiuril] 25 mg PO QAM 09/10/19 09/21/19 History Omeprazole 20 mg PO HS 09/10/19 09/21/19 History Allergies Allergy/AdvReac Type Severity Reaction Status Date / Time amlodipine Allergy Anaphylaxis Verified 09/21/19 22:42 isosorbide mononitrate Allergy Rash/Hives Verified 09/21/19 22:42 [From Imdur] Surgical - Exam Vital Signs Temp Pulse Resp BP Pulse Ox 97.5 F L 67 19 190/74 97 09/21/19 18:18 09/21/19 18:18 09/21/19 18:18 09/21/19 18:18 09/21/19 18:18 Results - Labs 09/24/19 09:22 09/25/19 06:36 Abnormal Lab Results - Last 24 Hours (Table) 09/25/19 09/25/19 09/26/19 Range/Units 17:31 23:43 05:52 POC Glucose (mg/dL) 114 H 150 H 128 H (75-99) mg/dL 09/26/19 Range/Units 11:36 POC Glucose (mg/dL) 143 H (75-99) mg/dL Microbiology - Last 24 Hours (Table) 09/23/19 15:30 Blood Culture - Preliminary Blood No Growth after 48 hours <Morelia Soto - Last Filed: 09/26/19 21:06> History of Present Illness History of present illness: Patient seen and evaluated this evening. She is passing flatus and having bowel movements. She reports her abdominal pain has resolved. She has a protuberant abdomen which she states is her normal. She has tolerated clear liquid diet, may advance to soft. Surgical - Exam Vital Signs Temp Pulse Resp BP Pulse Ox 97.5 F L 67 19 190/74 97 09/21/19 18:18 09/21/19 18:18 09/21/19 18:18 09/21/19 18:18 09/21/19 18:18 Results - Labs 09/24/19 09:22 09/25/19 06:36 Abnormal Lab Results - Last 24 Hours (Table) 09/25/19 09/26/19 09/26/19 Range/Units 23:43 05:52 11:36 POC Glucose (mg/dL) 150 H 128 H 143 H (75-99) mg/dL 09/26/19 09/26/19 Range/Units 16:33 20:20 POC Glucose (mg/dL) 143 H 138 H (75-99) mg/dL Microbiology - Last 24 Hours (Table) 09/23/19 15:30 Blood Culture - Preliminary Blood No Growth after 72 hours
--- NOTE | 2019-09-26 13:08 | P.CRDCN ---
History of Present Illness History of present illness: HISTORY OF PRESENTING ILLNESS This is a pleasant 79-year-old female past medical history significant for diffuse coronary artery disease with no significant stenosis, diabetes danika itus, hypertension, dyslipidemia, carotid artery disease, atrial fibrillation and gastroesophageal reflux disease. She follows in the office with Dr. Carias. We have been asked to see in consultation for chest pain. She presented to the hospital with symptoms of abdominal discomfort, nausea and vomiting. Approximately one month ago she was treated with antibiotics as an outpatient for an exacerbation of diverticulitis. She had been feeling well since her antibiotics were complete however acutely on Monday she started feeling abdominal pain in the right lower quadrant associated with nausea and she vomited once. Upon arrival to the emergency department she was found to have enteritis with a distended small bowel loops with evidence of slow small bowel transit with no overt findings of small bowel obstruction. However subsequent abdominal x-rays were consistent with small bowel obstruction. She has an NG tube in place. She states she had a bowel movement this morning. His morning while sitting in bed she developed a discomfort in left precordial region described as a pressure sensation. The discomfort is worse with deep inspiration. There is no radiation to the arm, back, neck or jaw. This is not associated with shortness of breath, dizziness or palpitations. Chest x-ray obtained revealed sinus mechanism with first-degree AV block heart rate of 84 with nonspecific inferior lateral ST changes. Consistent with previous EKGs. No acute changes noted. Laboratory data reviewed, WBC 11.1, hemoglobin 10, platelets 415, sodium 138, potassium 3.5, creatinine 0.7, troponin 0.02. Chronic daily cardiac medications include aspirin 81 mg daily, atorvastatin 40 mg daily, hydrochlorothiazide 25 mg daily, lisinopril 20 mg daily, Lopressor 100 mg in the morning, Xarelto 20 mg daily and hydralazine 75 mg 3 times a day. Most recent stress test performed in the office with a Lexiscan stress test in 2018 negative for reversible cardiac ischemia, most recent echocardiogram obtained in the office 2018 revealed preserved LV systolic function with ejection fraction 55%, cardiac catheterization 2013 revealed diffuse disease with coronary calcification, suggestive of aneurysmal dilatation of the abdominal aorta with no significant stenosis. REVIEW OF SYSTEMS At the time of my exam: CONSTITUTIONAL: Denies fever or chills. CARDIOVASCULAR: Complains of pleuritic chest pain. Denies anginal chest pain, shortness of breath, orthopnea, PND or palpitations. RESPIRATORY: Denies cough. GASTROINTESTINAL: Denies abdominal pain, diarrhea, constipation, nausea or vomiting. MUSCULOSKELETAL: Denies myalgias. NEUROLOGIC: Denies numbness, tingling or weakness. ENDOCRINE: Denies fatigue, weight change, polydipsia or polyurina. GENITOURINARY: Denies burning, hematuria or urgency with micturation. HEMATOLOGIC: Denies history of anemia or bleeding. PHYSICAL EXAMINATION Blood pressure 173/67 heart rate 88 afebrile and maintaining oxygen saturation on room air. CONSTITUTIONAL: No apparent distress. HEENT: Head is normocephalic. Pupils are equal, round. Sclerae anicteric. Mucous membranes of the mouth are moist. No JVD. No carotid bruit. NG tube in place. CHEST EXAMINATION: Lungs are clear to auscultation. No chest wall tenderness is noted on palpation or with deep breathing. HEART EXAMINATION: Regular rate and rhythm. S1, S2 heard. Systolic ejection murmur at the left sternal border, no gallops or rub. ABDOMEN: Soft, nontender. Positive bowel sounds. EXTREMITIES: 2+ peripheral pulses, no lower extremity edema and no calf tenderness. NEUROLOGIC EXAMINATION: Patient is awake, alert and oriented x3. ASSESSMENT Chest pain, atypical for angina. Small bowel obstruction Leukocytosis Hypertension Dyslipidemia Paroxysmal atrial fibrillation on fdc anti-coagulation, maintaining sinus mechanism. Diabetes mellitus PLAN Pain is atypical for angina with respirophasic features. Likely related to gas. EKG unremarkable. Obtain 2-D echocardiogram and Doppler study to assess cardiac structure and function. Continue to trend troponins to rule out an acute event. Thank you kindly for this consultation. Nurse Practitioner note has been reviewed, I agree with a documented findings and plan of care. Patient was seen and examined. Past Medical History Past Medical History: Atrial Fibrillation, Cancer, CVA/TIA, Diabetes Mellitus, GERD/Reflux, Hyperlipidemia, Hypertension, Osteoarthritis (OA), Syncope Additional Past Medical History / Comment(s): OSteoporosis, hiatal hernia, diver ticulosis, polyps, cervical cancer, DJD, History of Any Multi-Drug Resistant Organisms: None Reported Past Surgical History: Back Surgery, Heart Catheterization, Hysterectomy Additional Past Surgical History / Comment(s): EGD, Colonoscopy, bilateral cataract removed, "fatty tumor" removed from her back. Past Anesthesia/Blood Transfusion Reactions: No Reported Reaction, Motion Sickness Additional Past Anesthesia/Blood Transfusion Reaction / Comment(s): Pt has never recieved blood. SON "CODED" POST HIP REPLACEMENT Past Psychological History: Anxiety Additional Psychological History / Comment(s): Pt lives alone. 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 She uses no assistive devices or home care. She drives. Smoking Status: Former smoker Past Alcohol Use History: None Reported Additional Past Alcohol Use History / Comment(s): Pt states she smoked for about 52 yrs 1 ppd and eventually up to 10/17 ppd but quit in 2008. Past Drug Use History: None Reported - Past Family History Father Family Medical History: Myocardial Infarction (AL) Additional Family Medical History / Comment(s): Father of a AL at age 76yrs. Mother Family Medical History: CVA/TIA Additional Family Medical History / Comment(s): Mother had a CVA at age 88yrs. She at age 92yrs. Medications and Allergies Home Medications Medication Instructions Recorded Confirmed Type Metoprolol Tartrate [Lopressor] 100 mg PO QAM 05/14/15 09/21/19 History metFORMIN HCL [Glucophage] 500 mg PO BID 07/02/15 09/21/19 History Aspirin 81 mg PO DAILY #1 chewable 07/04/15 09/21/19 Rx Cholecalciferol [Vitamin D3 (25 2,000 unit PO DAILY@1200 #0 07/15/15 09/21/19 History Mcg = 1000 Iu)] Cinnamon Bark [Cinnamon] 500 mg PO BID 07/15/15 09/21/19 History Vits A,C,E/Lutein/Minerals 1 tab PO BID 07/15/15 09/21/19 History [Ocuvite with Lutein Tablet] Acetaminophen Tab [Tylenol] 650 mg PO Q6H PRN 04/05/17 09/21/19 History Atorvastatin [Lipitor] 40 mg PO HS 04/05/17 09/21/19 History Lisinopril [Zestril] 20 mg PO HS 04/14/17 09/21/19 History hydrALAZINE HCL [Apresoline] 75 mg PO TID #90 tab 04/03/18 09/21/19 Rx Rivaroxaban [Xarelto] 20 mg PO DAILY 04/09/19 12/07/19 History Ferrous Sulfate [Iron (65 MG 1 tab PO DAILY 09/10/19 09/21/19 History Elemental)] Hydrochlorothiazide [Hydrodiuril] 25 mg PO QAM 09/10/19 09/21/19 History Omeprazole 20 mg PO HS 09/10/19 09/21/19 History Allergies Allergy/AdvReac Type Severity Reaction Status Date / Time amlodipine Allergy Anaphylaxis Verified 09/21/19 22:42 isosorbide mononitrate Allergy Rash/Hives Verified 09/21/19 22:42 [From Imdur] Physical Exam Vitals: Vital Signs Temp Pulse Resp BP Pulse Ox 09/26/19 07:00 98.1 F 88 17 173/67 95 09/26/19 03:43 16 09/26/19 01:04 98.9 F 88 16 147/57 94 L 09/26/19 00:20 16 09/25/19 20:30 16 09/25/19 19:31 99.6 F 75 16 151/57 97 09/25/19 16:39 80 09/25/19 14:23 97.8 F 80 18 148/71 94 L Intake and Output 09/25/19 09/26/19 09/26/19 22:59 06:59 14:59 Intake Total 600 Output Total 100 200 Balance -100 400 Intake: Intake, IV Titration 600 Amount Dextrose 5%-0.9% NaCl 1, 600 000 ml @ 100 mls/hr IV . Q10H [facility] Rx#:[id number] Output: Gastric Drainage 100 Urine 200 Other: Voiding Method Toilet Toilet # Voids 2 2 Results 09/24/19 09:22 09/25/19 06:36 Cardiac Enzymes 09/26/19 Range/Units 08:23 Troponin I 0.020 (0.000-0.034) ng/mL Current Medications Generic Name Dose Route Start Last Admin Trade Name Freq PRN Reason Stop Dose Admin Acetaminophen/Codeine Phosphate 1 each 09/21/19 22:31 09/26/19 07:50 Tylenol #3 PO 1 each Q4HR PRN Administration Moderate Pain Alprazolam 0.25 mg 09/21/19 22:31 Xanax PO Q6HR PRN Anxiety Aspirin 81 mg 09/22/19 09:00 09/26/19 07:50 Aspirin PO 81 mg DAILY JOHN Administration Benzocaine 1 spray 09/24/19 15:42 09/24/19 22:35 Hurricaine [place] MUCOUS MEM 1 spray QID PRN Administration Mouth Irritation Hydralazine HCl 75 mg 09/22/19 09:00 09/26/19 07:50 Apresoline PO 75 mg TID JOHN Administration Ceftriaxone Sodium 1 gm/ 50 mls @ 100 mls/hr 09/22/19 09:00 09/26/19 07:50 Sodium Chloride IVPB 100 mls/hr Q24HR JOHN Administration Dextrose/Sodium Chloride 1,000 mls @ 100 mls/hr 09/25/19 23:30 09/25/19 23:57 Dextrose 5%-Ns Iv Soln IV 100 mls/hr .Q10H JOHN Administration Insulin Aspart 0 unit 09/22/19 07:30 09/26/19 07:32 Novolog SQ Not Given AC-TID [facility] Protocol Lisinopril 20 mg 09/22/19 21:00 09/25/19 21:45 Zestril PO 20 mg HS JOHN Administration Metoprolol Tartrate 100 mg 09/22/19 09:00 09/26/19 07:49 Lopressor PO 100 mg QAM JOHN Administration Naloxone HCl 0.2 mg 09/21/19 22:31 Narcan IV Q2M PRN Opioid Reversal Ondansetron HCl 4 mg 09/21/19 22:31 Zofran IVP Q8HR PRN Nausea And Vomiting Rivaroxaban 20 mg 09/22/19 09:00 09/26/19 07:49 Xarelto PO 20 mg DAILY JOHN Administration Tramadol HCl 50 mg 09/21/19 22:31 Ultram PO Q6H PRN Moderate Pain Intake and Output 09/25/19 09/26/19 09/26/19 22:59 06:59 14:59 Intake Total 600 Output Total 100 200 Balance -100 400 Intake: Intake, IV Titration 600 Amount Dextrose 5%-0.9% NaCl 1, 600 000 ml @ 100 mls/hr IV . Q10H [facility] Rx#:[id number] Output: Gastric Drainage 100 Urine 200 Other: Voiding Method Toilet Toilet # Voids 2 2 09/24/19 09:22 09/25/19 06:36
[2019-09-26 16:34] LABS: Glucose,Whole Blood 143 mg/dL (75-99)
[2019-09-26 19:45] VITALS: RESP 18
[2019-09-26] MEDS: DEXTROSE 5%-0.9% NACL 1,000 ML IV SCH ×2 (19:49→19:56)
[2019-09-26 20:22] LABS: Glucose,Whole Blood 138 mg/dL (75-99)
[2019-09-26] MEDS: LISINOPRIL 20 MG TAB PO SCH (21:12)
--- NOTE | 2019-09-26 22:29 | P.PN ---
Progress Note - Text Progress Note Date: 09/26/19 Interval history: This patient was admitted with abdominal pain and cramping, diagnosed of acute ileitis with ileus. Computed tomography scan of the abdomen showed small bowel enteritis. NG tube was placed yesterday. Today-abdomen less distended. On intermittent suction with NG tube. Did have a small bowel movement. No fever no chills.. Review of systems: Was done for constitutional, cardiovascular, GI, pulmonary. relevant finding as above Active Medications Acetaminophen/Codeine Phosphate (Tylenol #3) 1 each PO Q4HR PRN PRN Reason: Moderate Pain Last Admin: 09/26/19 07:50 Dose: 1 each Documented by: Alprazolam (Xanax) 0.25 mg PO Q6HR PRN PRN Reason: Anxiety Aspirin (Aspirin) 81 mg PO DAILY [facility] Last Admin: 09/26/19 07:50 Dose: 81 mg Documented by: Benzocaine (Hurricaine [place]) 1 spray MUCOUS MEM QID PRN PRN Reason: Mouth Irritation Last Admin: 09/24/19 22:35 Dose: 1 spray Documented by: Hydralazine HCl (Apresoline) 75 mg PO TID [facility] Last Admin: 09/26/19 21:12 Dose: 75 mg Documented by: Ceftriaxone Sodium 1 gm/ (Sodium Chloride) 50 mls @ 100 mls/hr IVPB Q24HR [facility] Last Admin: 09/26/19 07:50 Dose: 100 mls/hr Documented by: Dextrose/Sodium Chloride (Dextrose 5%-Ns Iv Soln) 1,000 mls @ 100 mls/hr IV .Q10H [facility] Last Admin: 09/26/19 19:56 Dose: 100 mls/hr Documented by: Insulin Aspart (Novolog) 0 unit SQ AC-TID [facility]; Protocol Last Admin: 09/26/19 17:09 Dose: Not Given Documented by: Lisinopril (Zestril) 20 mg PO HS [facility] Last Admin: 09/26/19 21:12 Dose: 20 mg Documented by: Metoprolol Tartrate (Lopressor) 100 mg PO QAM [facility] Last Admin: 09/26/19 07:49 Dose: 100 mg Documented by: Naloxone HCl (Narcan) 0.2 mg IV Q2M PRN PRN Reason: Opioid Reversal Ondansetron HCl (Zofran) 4 mg IVP Q8HR PRN PRN Reason: Nausea And Vomiting Rivaroxaban (Xarelto) 20 mg PO DAILY JOHN Last Admin: 09/26/19 07:49 Dose: 20 mg Documented by: Tramadol HCl (Ultram) 50 mg PO Q6H PRN PRN Reason: Moderate Pain Physical examination: VITAL SIGNS: 98.1, 88, 17, 173/67, 95% on room air GENERAL: Laying in bed, awake. EYES: Pupils equal. Conjunctiva normal. HEENT: External appearance of nose and ears normal, oral cavity dry with NG tube in place. NECK: JVD not raised; masses not palpable. HEART: First and second heart sounds are normal; no edema. LUNGS: Respiratory rate normal; clear to auscultation. ABDOMEN: Soft, distended, hyperactive bowel sounds, no guarding or rigidity nontender, liver spleen not palpable, no masses palpable. PSYCH: Alert and oriented x3; mood and affect normal. INVESTIGATIONS, reviewed in the clinical context: Abdominal [id number] air-fluid levels Assessment: -Acute small bowel ileus possibly from underlying antritis slow to respond with x-ray still showing multiple air fluid levels, slow to respond -colon diverticulosis-asymptomatic -Normocytic anemia cause unknown -Persistent atrial fibrillation chronically and Xarelto -Diabetes mellitus type 2 on oral hypoglycemic, uncontrolled with hypoglycemia -Essential hypertension -Hyperlipidemia -Primary osteoarthritis -Hiatal hernia -Acute UTI with cystitis Plan: continue current medication treatment plan. Surgery was consulted. Await input. Repeat labs in the morning. Care was discussed the patient.
--- NOTE | 2019-09-26 22:53 | P.PN ---
Subjective Progress Note Date: 09/26/19 Principal diagnosis: Abdominal pain, distension, enteritis Patient reporting abdominal pain is improved today. NG tube was removed. She has tolerated some liquids. She did have a small bowel movement today. Objective - Vital Signs Vital signs: Vital Signs Temp 98.1 F 09/26/19 07:00 Pulse 88 09/26/19 07:50 Resp 17 09/26/19 07:50 BP 173/67 09/26/19 07:00 Pulse Ox 95 09/26/19 07:00 Intake & Output 09/25/19 09/26/19 09/26/19 18:59 06:59 18:59 Intake Total 600 Output Total 100 200 Balance -100 400 Intake: Intake, IV Titration 600 Amount Dextrose 5%-0.9% NaCl 1, 600 000 ml @ 100 mls/hr IV . Q10H [facility] Rx#:[id number] Output: Gastric Drainage 100 Urine 200 Other: Voiding Method Toilet Toilet Toilet # Voids 2 2 - Exam On physical examination, patient appears comfortable in no apparent distress. HEAD: Normocephalic, atraumatic. EYES: No scleral icterus. No conjunctival injection. MOUTH: No lesions, tongue midline. NECK: Trachea midline, no gross abnormalities. CHEST: Clear to auscultation with no wheezing or rhonchi appreciated. HEART: S1-S2 appreciated. ABDOMEN: Soft, mildly tender to palpation and mildly distended. Bowel sounds are positive. No organomegaly. No guarding or rigidity. EXTREMITIES: No pedal edema. SKIN: No rashes, no jaundice. NEUROLOGIC: Alert and oriented x3. No focal deficits. - Labs CBC & Chem 7: 09/24/19 09:22 09/25/19 06:36 Labs: Abnormal Lab Results - Last 24 Hours (Table) 09/25/19 09/25/19 09/26/19 Range/Units 17:31 23:43 05:52 POC Glucose (mg/dL) 114 H 150 H 128 H (75-99) mg/dL 09/26/19 Range/Units 11:36 POC Glucose (mg/dL) 143 H (75-99) mg/dL Microbiology - Last 24 Hours (Table) 09/23/19 15:30 Blood Culture - Preliminary Blood No Growth after 48 hours Assessment and Plan (1) Enteritis Narrative/Plan: 79-year-old female presented to the hospital with complaints of abdominal pain, nausea and vomiting. She describes right abdominal pain in the upper and lower abdomen. She was recently treated in July for an episode of diverticulitis with Flagyl therapy. This was followed with EGD and colonoscopy on the findings of a periampullary diverticulum on EGD and colonic diverticulosis colonoscopy. She denies any change in her bowel habits or blood per rectum. No sick contacts or new medications. She is currently being treated for urinary tract infection. Computed tomography scan of the abdomen was significant for a nonspecific small bowel enteritis colonic diverticulosis. Unknown etiology with suspicion for possible bacterial or viral enteritis. However patient is reporting had no further bowel movements or with minimal flatus since presentation and x-ray imaging concerning for ileus versus obstruction. Small bowel movement today and patient is passing flatus and tolerating diet. NG tube is been removed. Current Visit: Yes Status: Acute Code(s): K52.9 - NONINFECTIVE GASTROENTE RITIS AND COLITIS, UNSPECIFIED SNOMED Code(s): 46112410 (2) Nausea and vomiting Current Visit: Yes Status: Acute Code(s): R11.2 - NAUSEA WITH VOMITING, UNSPECIFIED SNOMED Code(s): 89202942 (3) Diverticulosis Current Visit: Yes Status: Acute Code(s): K57.90 - DVRTCLOS OF INTEST, PART UNSP, W/O PERF OR ABSCESS W/O BLEED SNOMED Code(s): 928818119 (4) Abdominal pain Current Visit: Yes Status: Acute Code(s): R10.9 - UNSPECIFIED ABDOMINAL PAIN SNOMED Code(s): 55585861 Plan: Supportive care Liquid diet, advance to low fiber low residual as tolerated NG tube removed today Appreciate recommendations from surgical service Continue medical management of urinary tract infection Prior endoscopic report reviewed Continue PPI therapy Continue IV fluid hydration Encourage ambulation Thank you for allowing us to participate in the care of the patient
[2019-09-27 06:41] LABS: Glucose,Whole Blood 91 mg/dL (75-99)
[2019-09-27] MEDS: RIVAROXABAN 20 MG TAB PO SCH (07:14)
[2019-09-27] MEDS: hydrALAZINE HCL 25 MG TAB PO SCH ×3 (07:14→21:08)
[2019-09-27] MEDS: INSULIN ASPART (NovoLOG) 100 UNIT/ML VIAL SQ SCH ×3 (07:14→16:46)
[2019-09-27] MEDS: ASPIRIN 81 MG PO SCH (07:14)
[2019-09-27] MEDS: METOPROLOL TARTRATE 50 MG TAB PO SCH (07:14)
[2019-09-27 07:17] LABS: HCT 29.3 % (34.0-46.0); HGB 9.3 gm/dL (11.4-16.0); Hypochromasia Moderate; MCH 25.4 pg (25.0-35.0); MCHC 31.7 g/dL (31.0-37.0); MCV 80.1 fL (80.0-100.0); Mean Platelet Volume 7.8; Platelet Count 452 k/uL (150-450); RBC 3.66 m/uL (3.80-5.40); RDW 14.9 % (11.5-15.5); WBC 12.7 k/uL (3.8-10.6)
[2019-09-27 07:25] LABS: ALT 9 U/L (4-34); AST 17 U/L (14-36); African American GFR (CKD) >90 (>60 ml/min/1.73 sqM); Albumin 2.9 g/dL (3.5-5.0); Alkaline Phosphatase 48 U/L (38-126); Anion Gap 9 mmol/L; Blood Urea Nitrogen 4 mg/dL (7-17); Calcium 8.6 mg/dL (8.4-10.2); Carbon Dioxide 22 mmol/L (22-30); Chloride 108 mmol/L (98-107); Glucose 85 mg/dL (74-99); Non-African American GFR(CKD) >90 (>60 ml/min/1.73 sqM); Potassium 3.2 mmol/L (3.5-5.1); Sodium 139 mmol/L (137-145); Total Bilirubin 0.5 mg/dL (0.2-1.3); Total Protein 5.4 g/dL (6.3-8.2)
[2019-09-27] MEDS: HYDROCHLOROTHIAZIDE 25 MG TAB PO SCH (09:16)
--- NOTE | 2019-09-27 09:56 | ECHOF ---
Referral Reason:Chest pain MEASUREMENTS -------- HEIGHT: 154.9 cm WEIGHT: 70.8 kg BP: IVSd: 1.4 cm (0.6 - 1.1) LVIDd: 4.1 cm (3.9 - 5.3) LVPWd: 1.5 cm (0.6 - 1.1) IVSs: 2.2 cm LVIDs: 1.9 cm LVPWs: 2.3 cm LAESV Index (A-L): 39.82 ml/m Ao Diam: 1.9 cm (2.0 - 3.7) AV Cusp: 1.3 cm (1.5 - 2.6) LA Diam: 4.1 cm (2.7 - 3.8) MV EXCURSION: 8.330 mm (> 18.000) MV EF SLOPE: 33 mm/s (70 - 150) EPSS: 0.6 cm MV E Nathaniel: 1.76 m/s MV DecT: 188 ms MV A Nathaniel: 1.59 m/s MV E/A Ratio: 1.11 AV maxP.25 mmHg AV meanP.23 mmHg AR PHT: 968 ms RAP: 5.00 mmHg RVSP: 42.91 mmHg FINDINGS -------- Sinus rhythm. This was a technically good study. The left ventricular size is normal. There is moderate concentric left ventricular hypertrophy. O verall left ventricular systolic function is normal with, an EF between 55 - 60 %. Increased LAP Gr theresa 2 Diastolic Dysfunction. The right ventricle is normal in size. LA is moderately dilated 34-39 ml/m2 The right atrial size is normal. Aortic valve is trileaflet and is mildly thickened. There is mild aortic valve sclerosis. There i s mild aortic regurgitation. Can not exclude possible calcifaction vs vegetation/tumor of aov. The mitral valve leaflets are mildly thickened. Mild mitral regurgitation is present. The tricuspid valve appears structurally normal. Mild tricuspid regurgitation present. There is m ild pulmonary hypertension. The right ventricular systolic pressure, as measured by Doppler, is 42. 91mmHg. There is no pulmonic regurgitation present. The aortic root size is normal. Normal inferior vena cava with normal inspiratory collapse consistent with estimated right atrial pre ssure of 5 mmHg. There is no pericardial effusion. CONCLUSIONS -------- 1. Sinus rhythm. 2. This was a technically good study. 3. The left ventricular size is normal. 4. There is moderate concentric left ventricular hypertrophy. 5. Overall left ventricular systolic function is normal with, an EF between 55 - 60 %. 6. Increased LAP Grade 2 Diastolic Dysfunction. 7. The right ventricle is normal in size. 8. LA is moderately dilated 34-39 ml/m2 9. The right atrial size is normal. 10. Aortic valve is trileaflet and is mildly thickened. 11. There is mild aortic valve sclerosis. 12. There is mild aortic regurgitation. 13. Can not exclude possible calcifaction vs vegetation/tumor of aov. 14. The mitral valve leaflets are mildly thickened. 15. Mild mitral regurgitation is present. 16. The tricuspid valve appears structurally normal. 17. Mild tricuspid regurgitation present. 18. There is mild pulmonary hypertension. 19. The right ventricular systolic pressure, as measured by Doppler, is 42.91mmHg. 20. There is no pulmonic regurgitation present. 21. The aortic root size is normal. 22. Normal inferior vena cava with normal inspiratory collapse consistent with estimated right atrial pressure of 5 mmHg. 23. There is no pericardial effusion. [employer]: Doris Newell RDCS
[2019-09-27] MEDS ORDERED: FUROSEMIDE 10 MG/ML 2 ML VIAL IV ONE ×2 (11:22→16:00)
[2019-09-27 11:35] LABS: Glucose,Whole Blood 99 mg/dL (75-99)
--- NOTE | 2019-09-27 12:21 | P.PN ---
<Lorene Doty - Last Filed: 09/27/19 12:19> Subjective Progress Note Date: 09/27/19 CHIEF COMPLAINT: Small bowel obstruction HISTORY OF PRESENT ILLNESS: patient examined this morning at the bedside. She denies abdominal pain. Passing flatus. She reports her in a bowel movement this morning. Denies nausea or vomiting. She reports feeling swollen. PHYSICAL EXAM: VITAL SIGNS: Reviewed GENERAL: Well-developed in no acute distress. HEENT: No sclera icterus. Extraocular movements grossly intact. Moist buccal mucosa. Head is atraumatic, normocephalic. Hears conversational speech. No nasal drainage. NECK: Supple without lymphadenopathy. CHEST: Non-labored respirations and equal bilateral excursions. CARDIOVASCULAR: Regular rate with regular rhythm. Palpable 2+ radial pulses. ABDOMEN: Soft. Nondistended. nontender. No peritonitis. MUSCULOSKELETAL: No clubbing or cyanosis. NEUROLOGIC: No focal or lateralizing signs. Cranial nerves II through XII grossly intact. PSYCH: Appropriate affect. Alert and oriented to person, place and time. SKIN: Well perfused. Good skin turgor. ASSESSMENT: 1. Enteritis with greater than 10cm small bowel thickening 2. Diverticulosis 3. History of diverticulitis PLAN: Advance diet No surgical intervention recommended at this time Nurse practitioner note has been reviewed by physician. Signing provider agrees with the documented findings, assessment, and plan of care. Objective - Vital Signs Vital signs: Vital Signs Temp 98.6 F 09/27/19 07:00 Pulse 104 H 09/27/19 07:50 Resp 18 09/27/19 07:50 BP 185/70 09/27/19 07:00 Pulse Ox 93 L 09/27/19 07:00 Intake & Output 09/26/19 09/27/19 09/27/19 18:59 06:59 18:59 Intake Total 700 200 200 Balance 700 200 200 Intake: Intake, IV Titration 700 200 Amount Dextrose 5%-0.9% NaCl 1, 700 200 000 ml @ 100 mls/hr IV . Q10H JOHN Rx#:[id number] Oral 200 Other: Voiding Method Toilet Toilet Toilet # Voids 1 - Labs CBC & Chem 7: 09/27/19 06:23 09/27/19 06:23 Labs: Abnormal Lab Results - Last 24 Hours (Table) 09/26/19 09/26/19 09/27/19 Range/Units 16:33 20:20 06:23 WBC 12.7 H (3.8-10.6) k/uL RBC 3.66 L (3.80-5.40) m/uL Hgb 9.3 L (11.4-16.0) gm/dL Hct 29.3 L (34.0-46.0) % Plt Count 452 H (150-450) k/uL Potassium (3.5-5.1) mmol/L Chloride (98-107) mmol/L BUN (7-17) mg/dL POC Glucose (mg/dL) 143 H 138 H (75-99) mg/dL Total Protein (6.3-8.2) g/dL Albumin (3.5-5.0) g/dL 09/27/19 Range/Units 06:23 WBC (3.8-10.6) k/uL RBC (3.80-5.40) m/uL Hgb (11.4-16.0) gm/dL Hct (34.0-46.0) % Plt Count (150-450) k/uL Potassium 3.2 L (3.5-5.1) mmol/L Chloride 108 H (98-107) mmol/L BUN 4 L (7-17) mg/dL POC Glucose (mg/dL) (75-99) mg/dL Total Protein 5.4 L (6.3-8.2) g/dL Albumin 2.9 L (3.5-5.0) g/dL Microbiology - Last 24 Hours (Table) 09/23/19 15:30 Blood Culture - Preliminary Blood No Growth after 72 hours <Morelia Soto N - Last Filed: 09/27/19 21:49> Subjective Patient otherwise is tolerating diet. She is passing flatus and having bowel movements. Patient may be discharged once medically stable Objective - Vital Signs Vital signs: Vital Signs Temp 98.8 F 09/27/19 20:16 Pulse 81 09/27/19 20:16 Resp 18 09/27/19 20:16 BP 139/61 09/27/19 20:16 Pulse Ox 95 09/27/19 20:16 Intake & Output 09/27/19 09/27/19 09/28/19 06:59 18:59 06:59 Intake Total 200 1022 Balance 200 1022 Intake: Intake, IV Titration 200 400 Amount Dextrose 5%-0.9% NaCl 1, 200 350 000 ml @ 100 mls/hr IV . Q10H JOHN Rx#:[id number] cefTRIAXone 1 gm In 50 Sodium Chloride 0.9% 50 ml @ 100 mls/hr IVPB Q24HR JOHN Rx#:[id number] Oral 622 Other: Voiding Method Toilet Toilet # Voids 1 - Labs CBC & Chem 7: 09/27/19 06:23 09/27/19 06:23 Labs: Abnormal Lab Results - Last 24 Hours (Table) 09/27/19 09/27/19 09/27/19 Range/Units 06:23 06:23 16:33 WBC 12.7 H (3.8-10.6) k/uL RBC 3.66 L (3.80-5.40) m/uL Hgb 9.3 L (11.4-16.0) gm/dL Hct 29.3 L (34.0-46.0) % Plt Count 452 H (150-450) k/uL Potassium 3.2 L (3.5-5.1) mmol/L Chloride 108 H (98-107) mmol/L BUN 4 L (7-17) mg/dL POC Glucose (mg/dL) 100 H (75-99) mg/dL Total Protein 5.4 L (6.3-8.2) g/dL Albumin 2.9 L (3.5-5.0) g/dL Microbiology - Last 24 Hours (Table) 09/23/19 15:30 Blood Culture - Preliminary Blood No Growth after 96 hours
--- NOTE | 2019-09-27 13:47 | P.PN ---
Subjective HISTORY OF PRESENTING ILLNESS This is a pleasant 79-year-old female past medical history significant for diffuse coronary artery disease with no significant stenosis, diabetes mellitus, hypertension, dyslipidemia, carotid artery disease, atrial fibrillation and gastroesophageal reflux disease. She follows in the office with Dr. Carias. She is seen and examined sitting up on the edge of the bed in no acute distress. She denies any further symptoms of chest pain. She states she has had a bowel movement this morning and is feeling better from the abdominal perspective as well. NG has been removed. Laboratory reviewed, WBC 12.7, hgb 9.3, plt 452, sodium 139, potassium 3.2, creatinine 0.52, cardiac enzymes negative x2. Blood pressure 185/70 heart rate 104 afeibrile and maintaining oxygen saturation on room air. Echocardiogram revealed preserved LV systolic function with EF 55-60%, grade II diastolic dysfunction, moderately dilated LA, mild aortic valve sclerosis, mild AR, cannot rule out vegetation/tumor of the aortic valve, mild MR and mild TR with pulmonary hypertension with RVSP 42. PHYSICAL EXAMINATION CONSTITUTIONAL: No apparent distress. HEENT: Head is normocephalic. Pupils are equal, round. Sclerae anicteric. Mucous membranes of the mouth are moist. No JVD. No carotid bruit. CHEST EXAMINATION: Lungs are clear to auscultation. No chest wall tenderness is noted on palpation or with deep breathing. HEART EXAMINATION: Regular rate and rhythm. S1, S2 heard. Systolic ejection murmur at the left sternal border, no gallops or rub. EXTREMITIES: 2+ peripheral pulses, no lower extremity edema and no calf te nderness. ASSESSMENT Chest pain, atypical for angina. An acute event has been ruled out. Small bowel obstruction Leukocytosis Hypertension Dyslipidemia Paroxysmal atrial fibrillation on nursing home anti-coagulation, maintaining sinus mechanism. Diabetes mellitus PLAN An acute event has been ruled out. Aortic valve abnormality will require further investigation with [facility], this can be done as an outpatient. Blood cultures no growth after 72 hrs. Follow-up with Dr. Carias upon discharge. We will follow as needed, please call with further questions or concerns. Nurse Practitioner note has been reviewed, I agree with a documented findings and plan of care. Patient was seen and examined. Objective - Vital Signs Vital signs: Vital Signs Temp 98.6 F 09/27/19 07:00 Pulse 104 H 09/27/19 07:50 Resp 18 09/27/19 07:50 BP 185/70 09/27/19 07:00 Pulse Ox 93 L 09/27/19 07:00 Intake & Output 09/26/19 09/27/19 09/27/19 18:59 06:59 18:59 Intake Total 700 200 200 Balance 700 200 200 Intake: Intake, IV Titration 700 200 Amount Dextrose 5%-0.9% NaCl 1, 700 200 000 ml @ 100 mls/hr IV . Q10H [facility] Rx#:[id number] Oral 200 Other: Voiding Method Toilet Toilet Toilet # Voids 1 - Labs CBC & Chem 7: 09/27/19 06:23 09/27/19 06:23 Labs: Abnormal Lab Results - Last 24 Hours (Table) 09/26/19 09/26/19 09/27/19 Range/Units 16:33 20:20 06:23 WBC 12.7 H (3.8-10.6) k/uL RBC 3.66 L (3.80-5.40) m/uL Hgb 9.3 L (11.4-16.0) gm/dL Hct 29.3 L (34.0-46.0) % Plt Count 452 H (150-450) k/uL Potassium (3.5-5.1) mmol/L Chloride (98-107) mmol/L BUN (7-17) mg/dL POC Glucose (mg/dL) 143 H 138 H (75-99) mg/dL Total Protein (6.3-8.2) g/dL Albumin (3.5-5.0) g/dL 09/27/19 Range/Units 06:23 WBC (3.8-10.6) k/uL RBC (3.80-5.40) m/uL Hgb (11.4-16.0) gm/dL Hct (34.0-46.0) % Plt Count (150-450) k/uL Potassium 3.2 L (3.5-5.1) mmol/L Chloride 108 H (98-107) mmol/L BUN 4 L (7-17) mg/dL POC Glucose (mg/dL) (75-99) mg/dL Total Protein 5.4 L (6.3-8.2) g/dL Albumin 2.9 L (3.5-5.0) g/dL Microbiology - Last 24 Hours (Table) 09/23/19 15:30 Blood Culture - Preliminary Blood No Growth after 72 hours
[2019-09-27 16:35] LABS: Glucose,Whole Blood 100 mg/dL (75-99)
--- NOTE | 2019-09-27 17:29 | PN ---
PROGRESS NOTE DATE OF DICTATION: 09/27/2019 This patient is a 79-year-old pleasant white female admitted to the hospital with nausea, vomiting and abdominal distention, subsequently diagnosed with small-bowel obstruction, presently being managed conservatively, doing well. NG tube was removed. She was on a clear liquid diet yesterday. Today she was advanced to a regular diet; tolerating well. She still has some distended abdomen but denies any abdominal pain. PHYSICAL EXAMINATION: Vital signs are stable. Blood pressure is 132/86, pulse rate 79, temperature 98.1. HEENT examination is unremarkable. Conjunctivae pink. Sclerae anicteric. Oral cavity no lesions. NECK: No JVD or lymph node enlargement. CHEST: Clear to auscultation. HEART: Regular rate and rhythm. ABDOMEN: Soft. Bowel sounds are positive. No organomegaly. Abdomen is distended, but it was non-tender. EXTREMITIES: No pedal edema. SKIN: No rashes. NEUROLOGIC: Alert and oriented x3. No focal deficits. LABS: Labs done from today show WBC 12.7, hemoglobin 9.3, platelets normal. Basic metabolic panel is within normal limits. IMPRESSION: This is a lady who presented to the hospital with acute onset of severe abdominal pain associated with nausea, vomiting and abdominal distention. X-rays and CT scan showed changes consistent with thickening of the small bowel suggestive of enteritis. Patient is being managed conservatively. Symptoms are improving. Nausea and vomiting have resolved. She still has some abdominal distention. Most likely we are dealing with viral gastroenteritis. RECOMMENDATIONS: 1. Advance diet as tolerated. 2. Continue with symptomatic and supportive care. 3. Will follow with you closely. Thank you for this consultation. MMODL / IJN: [id number] /
[2019-09-27] MEDS: DEXTROSE 5%-0.9% NACL 1,000 ML IV SCH ×2 (17:36→20:31)
--- NOTE | 2019-09-27 19:07 | P.PN ---
Progress Note - Text Progress Note Date: 09/27/19 Interval history: This patient was admitted with abdominal pain and cramping, diagnosed of acute ileitis with ileus. Computed tomography scan of the abdomen showed small bowel enteritis. NG tube was placed . Today-NG tube discontinued. Patient did tolerate clear liquids yesterday. Doing better today. Has had some bowel movements. Abdomen less distended. No nausea vomiting. Review of systems: Was done for constitutional, cardiovascular, GI, pulmonary. relevant finding as above Active Medications Acetaminophen/Codeine Phosphate (Tylenol #3) 1 each PO Q4HR PRN PRN Reason: Moderate Pain Last Admin: 09/26/19 22:31 Dose: 1 each Documented by: Alprazolam (Xanax) 0.25 mg PO Q6HR PRN PRN Reason: Anxiety Aspirin (Aspirin) 81 mg PO DAILY [facility] Last Admin: 09/27/19 07:14 Dose: 81 mg Documented by: Benzocaine (Hurricaine [place]) 1 spray MUCOUS MEM QID PRN PRN Reason: Mouth Irritation Last Admin: 09/24/19 22:35 Dose: 1 spray Documented by: Hydralazine HCl (Apresoline) 75 mg PO TID [facility] Last Admin: 09/27/19 16:22 Dose: 75 mg Documented by: Hydrochlorothiazide (Hydrodiuril) 25 mg PO DAILY [facility] Last Admin: 09/27/19 09:16 Dose: 25 mg Documented by: Ceftriaxone Sodium 1 gm/ (Sodium Chloride) 50 mls @ 100 mls/hr IVPB Q24HR [facility] Last Admin: 09/27/19 07:14 Dose: 100 mls/hr Documented by: Insulin Aspart (Novolog) 0 unit SQ AC-TID [facility]; Protocol Last Admin: 09/27/19 16:46 Dose: Not Given Documented by: Lisinopril (Zestril) 20 mg PO HS [facility] Last Admin: 09/26/19 21:12 Dose: 20 mg Documented by: Metoprolol Tartrate (Lopressor) 100 mg PO QAM [facility] Last Admin: 09/27/19 07:14 Dose: 100 mg Documented by: Naloxone HCl (Narcan) 0.2 mg IV Q2M PRN PRN Reason: Opioid Reversal Ondansetron HCl (Zofran) 4 mg IVP Q8HR PRN PRN Reason: Nausea And Vomiting Rivaroxaban (Xarelto) 20 mg PO DAILY [facility] Last Admin: 09/27/19 07:14 Dose: 20 mg Documented by: Tramadol HCl (Ultram) 50 mg PO Q6H PRN PRN Reason: Moderate Pain Physical examination: VITAL SIGNS: 98.6, 104, 18, 185/70, 93% room air GENERAL: sitting up, more comfortable. EYES: Pupils equal. Conjunctiva normal. HEENT: External appearance of nose and ears normal, oral cavity dry with NG tube in place. NECK: JVD not raised; masses not palpable. HEART: First and second heart sounds are normal; no edema. LUNGS: Respiratory rate normal; clear to auscultation. ABDOMEN: Soft, lessdistended, pulse ox present, no guarding or rigidity, nontender, liver spleen not palpable, no masses palpable. PSYCH: Alert and oriented x3; mood and affect normal. INVESTIGATIONS, reviewed in the clinical context: white count 12.7 hemoglobin 9.3 platelets 452 potassium 3.2 crit 0.5 to Abdominal [id number] air-fluid levels Assessment: -Acute small bowel ileus possibly from underlying vital enteritis , clinically much improved -colon diverticulosis-asymptomatic -Normocytic anemia cause unknown -Persistent atrial fibrillation chronically on Xarelto -Diabetes mellitus type 2 on oral hypoglycemic, uncontrolled with hypoglycemia -Essential hypertension -Hyperlipidemia -Primary osteoarthritis -Hiatal hernia -Acute UTI with cystitis Plan: overall patient is doing better. Increased ambulation. diet has been advanced. Discussed with the patient.hopefully discharge tomorrow.
[2019-09-27] MEDS: CEPHALEXIN 500 MG CAP PO SCH (21:08)
[2019-09-27] MEDS: LISINOPRIL 20 MG TAB PO SCH (21:09)
[2019-09-28] MEDS: Acetaminophen-Codeine 300-30mg TAB PO PRN (01:13)
[2019-09-28 06:54] LABS: HCT 27.6 % (34.0-46.0); HGB 8.9 gm/dL (11.4-16.0); Hypochromasia Slight; MCH 25.4 pg (25.0-35.0); MCHC 32.3 g/dL (31.0-37.0); MCV 78.7 fL (80.0-100.0); Mean Platelet Volume 7.7; Platelet Count 453 k/uL (150-450); RBC 3.51 m/uL (3.80-5.40); RDW 14.7 % (11.5-15.5); WBC 11.7 k/uL (3.8-10.6)
[2019-09-28 06:54] LABS: Glucose,Whole Blood 92 mg/dL (75-99)
[2019-09-28 07:13] LABS: African American GFR (CKD) >90 (>60 ml/min/1.73 sqM); Anion Gap 10 mmol/L; Blood Urea Nitrogen 8 mg/dL (7-17); Calcium 8.3 mg/dL (8.4-10.2); Carbon Dioxide 25 mmol/L (22-30); Chloride 103 mmol/L (98-107); Glucose 83 mg/dL (74-99); Non-African American GFR(CKD) 83 (>60 ml/min/1.73 sqM); Potassium 2.8 mmol/L (3.5-5.1); Sodium 138 mmol/L (137-145)
[2019-09-28 07:48] VITALS: BP 151/70; PULSE 81; TEMP 98.6
[2019-09-28] MEDS: RIVAROXABAN 20 MG TAB PO SCH (08:23)
[2019-09-28] MEDS: CEPHALEXIN 500 MG CAP PO SCH (08:23)
[2019-09-28] MEDS: HYDROCHLOROTHIAZIDE 25 MG TAB PO SCH (08:23)
[2019-09-28] MEDS: hydrALAZINE HCL 25 MG TAB PO SCH (08:23)
[2019-09-28] MEDS: METOPROLOL TARTRATE 50 MG TAB PO SCH (08:23)
[2019-09-28] MEDS: ASPIRIN 81 MG PO SCH (08:23)
[2019-09-28] MEDS: INSULIN ASPART (NovoLOG) 100 UNIT/ML VIAL SQ SCH ×2 (08:26→11:59)
--- NOTE | 2019-09-28 10:08 | P.PN ---
Subjective Progress Note Date: 09/28/19 Principal diagnosis: Enteritis Patient doing well today. Tolerating diet. Did have some discomfort after dinner last night but no pain today. Tolerated breakfast. White blood cell count 11.7. She is afebrile. She is hoping to go home today. Objective - Vital Signs Vital signs: Vital Signs Temp 98.6 F 09/28/19 07:00 Pulse 81 09/28/19 07:00 Resp 18 09/28/19 07:00 BP 151/70 09/28/19 07:00 Pulse Ox 92 L 09/28/19 07:00 Intake & Output 09/27/19 09/28/19 09/28/19 18:59 06:59 18:59 Intake Total 1022 580 400 Balance 1022 580 400 Intake: Intake, IV Titration 400 Amount Dextrose 5%-0.9% NaCl 1, 350 000 ml @ 100 mls/hr IV . Q10H [facility] Rx#:[id number] cefTRIAXone 1 gm In 50 Sodium Chloride 0.9% 50 ml @ 100 mls/hr IVPB Q24HR [facility] Rx#:[id number] Oral 622 580 400 Other: Voiding Method Toilet Toilet # Voids 1 # Bowel Movements 1 - Exam Abdomen: Soft, nontender, nondistended - Labs CBC & Chem 7: 09/28/19 06:09 09/28/19 06:09 Labs: Abnormal Lab Results - Last 24 Hours (Table) 09/27/19 09/28/19 09/28/19 Range/Units 16:33 06:09 06:09 WBC 11.7 H (3.8-10.6) k/uL RBC 3.51 L (3.80-5.40) m/uL Hgb 8.9 L (11.4-16.0) gm/dL Hct 27.6 L (34.0-46.0) % MCV 78.7 L (80.0-100.0) fL Plt Count 453 H (150-450) k/uL Potassium 2.8 L (3.5-5.1) mmol/L POC Glucose (mg/dL) 100 H (75-99) mg/dL Calcium 8.3 L (8.4-10.2) mg/dL Microbiology - Last 24 Hours (Table) 09/23/19 15:30 Blood Culture - Preliminary Blood No Growth after 96 hours Assessment and Plan (1) Abdominal pain Narrative/Plan: Patient seems to be doing better. Continue regular diet. May discharge if tolerates. Current Visit: Yes Status: Acute Code(s): R10.9 - UNSPECIFIED ABDOMINAL PAIN SNOMED Code(s): 85815918
[2019-09-28 11:40] LABS: Glucose,Whole Blood 116 mg/dL (75-99)
--- NOTE | 2019-09-28 22:31 | P.DS ---
Providers Date of admission: 09/23/19 15:21 Expected date of discharge: 09/28/19 Attending physician: Rojas Ronquillo Consults: 09/23/19 14:27 Consult Physician Routine Consulting Provider: Dede Jaquez Consult Reason/Comments: Enteritis Do you want consulting provider notified?: Yes 09/25/19 23:23 Consult Physician Routine Consulting Provider: Morelia Soto Consult Reason/Comments: Small bowel obstruction Do you want consulting provider notified?: Yes 09/26/19 08:07 Consult Physician Routine Consulting Provider: Kyaw Mcneal Consult Reason/Comments: chest pain Do you want consulting provider notified?: Yes Primary care physician: [facility] Course: Interval history: This patient was admitted with abdominal pain and cramping, diagnosed of acute ileitis with ileus. Computed tomography scan of the abdomen showed small bowel enteritis. NG tube was placed .also treated for acute UTI from E. coli. patient responded well with conservative management. Doing well with time of discharge. Tolerated diet. Having bowel movement. Abdomen much improved. consultation: Dr. Priti Jaquez from GI Dr. Estrada from general surgery Physical examination: VITAL SIGNS:98.6, 81, 18, 151/70, 92% room air GENERAL: sitting up, comfortable. EYES: Pupils equal. Conjunctiva normal. HEENT: External appearance of nose and ears normal, oral cavity dry with NG tube in place. NECK: JVD not raised; masses not palpable. HEART: First and second heart sounds are normal; no edema. LUNGS: Respiratory rate normal; clear to auscultation. ABDOMEN: Soft, nondistended, no guarding or rigidity, nontender, liver spleen not palpable, no masses palpable. PSYCH: Alert and oriented x3; mood and affect normal. INVESTIGATIONS, reviewed in the clinical context: white count 11.7 hemoglobin 8.9 Previous testing Abdominal z-hqe-[id number] air-fluid levels Assessment: -Acute small bowel ileus possibly from underlying vital enteritis , -colon diverticulosis-asymptomatic -Normocytic anemia cause unknown -Persistent atrial fibrillation chronically on Xarelto -Diabetes mellitus type 2 on oral hypoglycemic, uncontrolled with hypoglycemia -Essential hypertension -Hyperlipidemia -Primary osteoarthritis -Hiatal hernia -Acute UTI with cystitis discharge: Home Patient Condition at Discharge: Stable Plan - Discharge Summary Discharge Rx Participant: No New Discharge Prescriptions: Continue metFORMIN HCL [Glucophage] 500 mg PO BID Aspirin 81 mg PO DAILY #1 chewable Vits A,C,E/Lutein/Minerals [Ocuvite with Lutein Tablet] 1 tab PO BID Cholecalciferol [Vitamin D3 (25 Mcg = 1000 Iu)] 2,000 unit PO DAILY@1200 #0 Atorvastatin [Lipitor] 40 mg PO HS Acetaminophen Tab [Tylenol] 650 mg PO Q6H PRN PRN Reason: Pain Lisinopril [Zestril] 20 mg PO HS hydrALAZINE HCL [Apresoline] 75 mg PO TID #90 tab Rivaroxaban [Xarelto] 20 mg PO DAILY Hydrochlorothiazide [Hydrodiuril] 25 mg PO QAM Omeprazole 20 mg PO HS Ferrous Sulfate [Iron (65 MG Elemental)] 1 tab PO DAILY Changed Metoprolol Tartrate [Lopressor] 50 mg PO BID #0 No Action Cinnamon Bark [Cinnamon] 500 mg PO BID Discharge Medication List metFORMIN HCL [Glucophage] 500 mg PO BID 07/02/15 [History] Aspirin 81 mg PO DAILY #1 chewable 07/04/15 [Rx] Cholecalciferol [Vitamin D3 (25 Mcg = 1000 Iu)] 2,000 unit PO DAILY@1200 #0 07/15/15 [History] Cinnamon Bark [Cinnamon] 500 mg PO BID 07/15/15 [History] Vits A,C,E/Lutein/Minerals [Ocuvite with Lutein Tablet] 1 tab PO BID 07/15/15 [History] Acetaminophen Tab [Tylenol] 650 mg PO Q6H PRN 04/05/17 [History] Atorvastatin [Lipitor] 40 mg PO HS 04/05/17 [History] Lisinopril [Zestril] 20 mg PO HS 04/14/17 [History] hydrALAZINE HCL [Apresoline] 75 mg PO TID #90 tab 04/03/18 [Rx] Rivaroxaban [Xarelto] 20 mg PO DAILY 01/22/19 [History] Ferrous Sulfate [Iron (65 MG Elemental)] 1 tab PO DAILY 09/10/19 [History] Hydrochlorothiazide [Hydrodiuril] 25 mg PO QAM 09/10/19 [History] Omeprazole 20 mg PO HS 09/10/19 [History] Metoprolol Tartrate [Lopressor] 50 mg PO BID #0 09/28/19 [Rx] Follow up Appointment(s)/Referral(s): Gen Palma MD [Primary Care Provider] - 1-2 days Miky Jaquez MD [STAFF PHYSICIAN] - 1 Week (Office will call you with follow up appointment time. ) Patient Instructions/Handouts: Abdominal Pain (ED), Bowel Obstruction (DC) Activity/Diet/Wound Care/Special Instructions: Please take prescribed medication as directed. Please follow with primary care. Physician to emergency department if symptoms worsen.
== END 2019-09-28 13:35 | disposition home or self-care (01) | DRG 389 ==
LOC: EC 18:16 → 4SSUR 22:22 → OBSVTOIN 09-23 15:21 → 4MS4W 09-24 22:40 → 4SSUR 09-24 22:40
PROVIDERS: ADMIT Hospitalist; ATTEND Hospitalist
DX: K56.7 Ileus, unspecified (principal); I48.19 Other persistent atrial fibrillation; N30.00 Acute cystitis without hematuria; A08.4 Viral intestinal infection, unspecified; E11.649 Type 2 diabetes mellitus with hypoglycemia without coma; I27.20 Pulmonary hypertension, unspecified; B96.20 Unspecified Escherichia coli [E. coli] as the cause of diseases classified elsewhere; D64.9 Anemia, unspecified; D72.829 Elevated white blood cell count, unspecified; E78.5 Hyperlipidemia, unspecified; F41.9 Anxiety disorder, unspecified; I10 Essential (primary) hypertension; I44.0 Atrioventricular block, first degree; K44.9 Diaphragmatic hernia without obstruction or gangrene; K57.30 Diverticulosis of large intestine without perforation or abscess without bleeding; M19.91 Primary osteoarthritis, unspecified site; R07.89 Other chest pain; I25.10 Atherosclerotic heart disease of native coronary artery without angina pectoris; K21.9 Gastro-esophageal reflux disease without esophagitis; M81.0 Age-related osteoporosis without current pathological fracture; I08.3 Combined rheumatic disorders of mitral, aortic and tricuspid valves; Z79.01 Long term (current) use of anticoagulants; Z79.82 Long term (current) use of aspirin; Z79.84 Long term (current) use of oral hypoglycemic drugs; Z79.899 Other long term (current) drug therapy; Z85.41 Personal history of malignant neoplasm of cervix uteri; Z86.73 Personal history of transient ischemic attack (TIA), and cerebral infarction without residual deficits; Z87.891 Personal history of nicotine dependence; Z90.710 Acquired absence of both cervix and uterus; Z88.8 Allergy status to other drugs, medicaments and biological substances; Z98.42 Cataract extraction status, left eye; Z98.41 Cataract extraction status, right eye; Z96.1 Presence of intraocular lens; Z86.010 Personal history of colon polyps; Z82.3 Family history of stroke; Z82.49 Family history of ischemic heart disease and other diseases of the circulatory system
CPT/HCPCS: 36415; 74018; 74019; 74177; 80048; 80053; 81001; 82150; 83605; 83690; 84484; 85025; 85027; 85652; 86140; 87040; 87077; 87086; 87186; 93005; 93306; 96361; 96374; 96375; 96376; 99285

== ENCOUNTER 2020-05-02 12:09 | Emergency (ER) | payer MEDICARE, BC ==
[2020-05-02 12:16] VITALS: RESP 18
[2020-05-02 12:59] LABS: Basophils # (A) 0.1 k/uL (0-0.2); Basophils % (A) 1 %; Eosinophils # (A) 0.3 k/uL (0-0.7); Eosinophils % (A) 3 %; HCT 33.4 % (34.0-46.0); HGB 10.4 gm/dL (11.4-16.0); Lymphocytes # (A) 1.5 k/uL (1.0-4.8); Lymphocytes % (A) 15 %; MCH 25.3 pg (25.0-35.0); MCHC 31.2 g/dL (31.0-37.0); Mean Platelet Volume 7.3; Monocytes # (A) 0.7 k/uL (0-1.0); Monocytes % (A) 7 %; Neutrophils % (A) 73 %; Platelet Count 402 k/uL (150-450); RBC 4.13 m/uL (3.80-5.40); WBC 9.6 k/uL (3.8-10.6)
[2020-05-02 13:13] LABS: ALT 17 U/L (4-34); AST 21 U/L (14-36); African American GFR (CKD) >90 (>60 ml/min/1.73 sqM); Albumin 4.1 g/dL (3.5-5.0); Alkaline Phosphatase 59 U/L (38-126); Anion Gap 10 mmol/L; Blood Urea Nitrogen 18 mg/dL (7-17); Calcium 9.6 mg/dL (8.4-10.2); Carbon Dioxide 23 mmol/L (22-30); Chloride 102 mmol/L (98-107); Creatine Kinase 56 U/L (30-135); Glucose 182 mg/dL (74-99); Magnesium 1.7 mg/dL (1.6-2.3); Non-African American GFR(CKD) 83 (>60 ml/min/1.73 sqM); Potassium 4.5 mmol/L (3.5-5.1); Sodium 135 mmol/L (137-145); Total Bilirubin 0.3 mg/dL (0.2-1.3); Total Protein 6.7 g/dL (6.3-8.2)
[2020-05-02 13:15] LABS: D-Dimer 0.22 mg/L FEU (<0.60); Partial Thromboplastin Time 25.2 sec (22.0-30.0); Prothrombin Time 10.1 sec (9.0-12.0)
--- NOTE | 2020-05-02 13:25 | XR ---
EXAMINATION TYPE: XR chest 2V DATE OF EXAM: 05/02/2020 HISTORY: Chest Pain. REFERENCE: Previous study dated 04/02/2018. FINDINGS: Lungs are clear. Pleural spaces are clear. The heart is not enlarged. IMPRESSION: NO ACTIVE INTRATHORACIC DISEASE.
--- NOTE | 2020-05-02 13:34 | ED ---
Chest Pain HPI - General Chief Complaint: Chest Pain Stated Complaint: abnormal EKG Time Seen by Provider: 05/02/20 12:26 Source: patient, RN notes reviewed Mode of arrival: wheelchair Limitations: no limitations - History of Present Illness Initial Comments: This is a 78-year-old female who presents with complaints of chest pain this started yesterday. She states the pain goes from left chest and her left side of her back. Is pressure in nature moderate in severity it does increase with movement she does have a history of atrial fibrillation she's had no recent complaints of fevers chills nausea vomiting sweats cough or phlegm production no other current modifying factors. MD Complaint: chest pain - Related Data Home Medications Medication Instructions Recorded Confirmed metFORMIN HCL [Glucophage] 500 mg PO BID 07/02/15 05/02/20 Cholecalciferol [Vitamin D3 (25 2,000 unit PO DAILY@1200 #0 07/15/15 05/02/20 Mcg = 1000 Iu)] Cinnamon Bark [Cinnamon] 500 mg PO BID 07/15/15 05/02/20 Vits A,C,E/Lutein/Minerals 1 tab PO BID 07/15/15 05/02/20 [Ocuvite with Lutein Tablet] Acetaminophen Tab [Tylenol] 650 mg PO Q6H PRN 04/05/17 05/02/20 Atorvastatin [Lipitor] 40 mg PO HS 04/05/17 05/02/20 Lisinopril [Zestril] 20 mg PO HS 04/14/17 05/02/20 Rivaroxaban [Xarelto] 20 mg PO HS 01/22/19 05/02/20 Ferrous Sulfate [Iron (65 MG 1 tab PO Q48H 09/10/19 05/02/20 Elemental)] Hydrochlorothiazide [Hydrodiuril] 25 mg PO QAM 09/10/19 05/02/20 Omeprazole 20 mg PO HS 09/10/19 05/02/20 Metoprolol Tartrate [Lopressor] 100 mg PO BID 05/02/20 05/02/20 Nystatin 100,000Unit/gm Cream 1 applic TOPICAL BID 05/02/20 05/02/20 [Mycostatin Cream] hydrALAZINE HCL [Apresoline] 75 mg PO TID 05/02/20 05/02/20 Previous Rx's Medication Instructions Recorded Aspirin 81 mg PO DAILY #1 chewable 07/04/15 Orphenadrine [Norflex] 100 mg PO Q12H #7 tablet.er 05/02/20 Allergies Allergy/AdvReac Type Severity Reaction Status Date / Time amlodipine Allergy Anaphylaxis Verified 05/02/20 14:00 isosorbide mononitrate Allergy Rash/Hives Verified 05/02/20 14:00 [From Imdur] Review of Systems ROS Statement: Those systems with pertinent positive or pertinent negative responses have been documented in the HPI. ROS Other: All systems not noted in ROS Statement are negative. EKG Findings - EKG Results: EKG: interpreted by ERMD (Sinus rhythm first-degree AV block rate was 61 appear interval 218 QRS duration 80 QT/QTC 380/390 evidence of possible inferior infarc t of undetermined age.) Past Medical History Past Medical History: Atrial Fibrillation, Cancer, CVA/TIA, Diabetes Mellitus, GERD/Reflux, Hyperlipidemia, Hypertension, Osteoarthritis (OA), Syncope Additional Past Medical History / Comment(s): OSteoporosis, hiatal hernia, diverticulosis, polyps, cervical cancer, DJD, History of Any Multi-Drug Resistant Organisms: None Reported Past Surgical History: Back Surgery, Heart Catheterization, Hysterectomy Additional Past Surgical History / Comment(s): EGD, Colonoscopy, bilateral cataract removed, "fatty tumor" removed from her back. Past Anesthesia/Blood Transfusion Reactions: No Reported Reaction, Motion Sickness Additional Past Anesthesia/Blood Transfusion Reaction / Comment(s): Pt has never recieved blood. SON "CODED" POST HIP REPLACEMENT Past Psychological History: Anxiety Smoking Status: Never smoker Past Alcohol Use History: None Reported Past Drug Use History: None Reported - Past Family History Father Family Medical History: Myocardial Infarction ([place]) Additional Family Medical History / Comment(s): Father of a [place] at age 76yrs. Mother Family Medical History: CVA/TIA Additional Family Medical History / Comment(s): Mother had a CVA at age 88yrs. She at age 92yrs. General Exam - General Exam Comments Initial Comments: This is a well-developed well-nourished awake alert oriented 3 female Limitations: no limitations General appearance: alert, in no apparent distress Head exam: Present: atraumatic, normocephalic, normal inspection Eye exam: Present: normal appearance, PERRL, EOMI. Absent: scleral icterus, conjunctival injection, periorbital swelling ENT exam: Present: normal exam, mucous membranes moist Neck exam: Present: normal inspection. Absent: tenderness, meningismus, lymphadenopathy Respiratory exam: Present: normal lung sounds bilaterally, chest wall tenderness (Tennis palpation of the left anterior chest wall with costochondral margin as well as over the left lateral paraspinous musculature in the mid thoracic back. No step-off no crepitation palpation does reproduce the patient's pain.). Absent: respiratory distress, wheezes, rales, rhonchi, stridor Cardiovascular Exam: Present: regular rate, normal rhythm, normal heart sounds. Absent: systolic murmur, diastolic murmur, rubs, gallop, clicks GI/Abdominal exam: Present: soft, normal bowel sounds. Absent: distended, tenderness, guarding, rebound, rigid Extremities exam: Present: normal inspection, full ROM, normal capillary refill. Absent: tenderness, pedal edema, joint swelling, calf tenderness Back exam: Present: normal inspection Neurological exam: Present: alert, oriented X3, CN II-XII intact Psychiatric exam: Present: normal affect, normal mood Skin exam: Present: warm, dry, intact, normal color. Absent: rash Course Vital Signs 05/02/20 05/02/20 12:13 14:12 Temperature 97.9 F 98.3 F Pulse Rate 65 60 Respiratory 18 18 Rate Blood Pressure 153/64 130/56 O2 Sat by Pulse 97 98 Oximetry Chest Pain MDM - MDM I did review the imaging and report no acute findings. I did a long discussion with patient and parent the findings the presentation appears be musculoskeletal in origin. The patient takes Tylenol normally but she hasn't taken any today. She does not want any narcotic at this time. She is agreed to set muscle relaxant. Patient will be discharged on appropriate muscle relaxants and she'll follow-up with her doctor and return when necessary Disposition Clinical Impression: Costochondritis, Musculoskeletal pain Disposition: HOME SELF-CARE Condition: Good Instructions (If sedation given, give patient instructions): Costochondritis (ED), Musculoskeletal Pain (ED) Additional Instructions: Continue with [id number] Tylenol for pain, warm compresses additionally. Medication E scribed to your preferred pharmacy Prescriptions: Orphenadrine [Norflex] 100 mg PO Q12H #7 tablet.er Is patient prescribed a controlled substance at d/c from ED?: No Referrals: Gen Palma MD [Primary Care Provider] - 1-2 days
[2020-05-02] MEDS ORDERED: ORPHENADRINE 30 MG/ML 2 ML VIAL IVP STA (14:11)
[2020-05-02 14:14] VITALS: BP 130/56; PULSE 60; TEMP 98.3
== END 2020-05-02 14:35 | disposition home or self-care (01) ==
LOC: EC 12:09
DX: M94.0 Chondrocostal junction syndrome [Tietze] (principal); M79.18 Myalgia, other site; I48.91 Unspecified atrial fibrillation; E11.9 Type 2 diabetes mellitus without complications; K21.9 Gastro-esophageal reflux disease without esophagitis; E78.5 Hyperlipidemia, unspecified; I10 Essential (primary) hypertension; M19.90 Unspecified osteoarthritis, unspecified site; M81.0 Age-related osteoporosis without current pathological fracture; F41.9 Anxiety disorder, unspecified; Z79.84 Long term (current) use of oral hypoglycemic drugs; Z79.899 Other long term (current) drug therapy; Z88.8 Allergy status to other drugs, medicaments and biological substances; Z85.41 Personal history of malignant neoplasm of cervix uteri; Z86.73 Personal history of transient ischemic attack (TIA), and cerebral infarction without residual deficits; Z82.49 Family history of ischemic heart disease and other diseases of the circulatory system
CPT/HCPCS: 36415; 93005; 85379; 83880; 80053; 82550; 83735; 84484; 85025; 85610; 85730; 71046; 99285; 96374; J2360

== ENCOUNTER 2020-05-28 15:20 | Observation (INO) | payer MEDICARE, BC ==
--- NOTE | 2020-05-28 15:29 | ED ---
SOB HPI - General Chief Complaint: Shortness of Breath Stated Complaint: Poss Allergic Reaction Time Seen by Provider: 05/28/20 15:22 Source: patient, EMS, RN notes reviewed, old records reviewed Mode of arrival: EMS Limitations: no limitations - History of Present Illness Initial Comments: This is a 39-year-old female DF for evaluation patient complaining of chest tightness maybe some shortness of breath maybe some chest pain. Patient did have ration reaction to bilateral arms and chest. Itchy, was given steroids steroid shot at her primary care and then developed some dizziness nausea and shortness of breath this afternoon. Chest tightness. Symptoms are persistent otherwise no new other complaints no recent fevers has been feeling well lately until this new rash medical record is significant for atrial fibrillation high blood pressure high cholesterol MD Complaint: shortness of breath, chest pain -: hour(s) Severity: moderate Severity scale (1-10): 4 Quality: aching Consistency: constant Improves With: nothing Worsens With: nothing Context: other (Recent rash treated with steroids) Associated Symptoms: chest pain, pain with inspiration, nausea/vomiting Treatments Prior to Arrival: none - Related Data Home Medications Medication Instructions Recorded Confirmed metFORMIN HCL [Glucophage] 500 mg PO BID 07/02/15 05/02/20 Cholecalciferol [Vitamin D3 (25 2,000 unit PO DAILY@1200 #0 07/15/15 05/02/20 Mcg = 1000 Iu)] Cinnamon Bark [Cinnamon] 500 mg PO BID 07/15/15 05/02/20 Vits A,C,E/Lutein/Minerals 1 tab PO BID 07/15/15 05/02/20 [Ocuvite with Lutein Tablet] Acetaminophen Tab [Tylenol] 650 mg PO Q6H PRN 04/05/17 05/02/20 Atorvastatin [Lipitor] 40 mg PO HS 04/05/17 05/02/20 lisinopriL [Zestril] 20 mg PO HS 04/14/17 05/02/20 Rivaroxaban [Xarelto] 20 mg PO HS 01/22/19 05/02/20 Ferrous Sulfate [Iron (65 MG 1 tab PO Q48H 09/10/19 05/02/20 Elemental)] Omeprazole 20 mg PO HS 09/10/19 05/02/20 hydroCHLOROthiazide [Hydrodiuril] 25 mg PO QAM 09/10/19 05/02/20 Metoprolol Tartrate [Lopressor] 100 mg PO BID 05/02/20 05/02/20 Nystatin 100,000Unit/gm Cream 1 applic TOPICAL BID 05/02/20 05/02/20 [Mycostatin Cream] hydrALAZINE HCL [Apresoline] 75 mg PO TID 05/02/20 05/02/20 Previous Rx's Medication Instructions Recorded Aspirin 81 mg PO DAILY #1 chewable 07/04/15 Orphenadrine [Norflex] 100 mg PO Q12H #7 tablet.er 05/02/20 Allergies Allergy/AdvReac Type Severity Reaction Status Date / Time amlodipine Allergy Anaphylaxis Verified 05/02/20 14:00 isosorbide mononitrate Allergy Rash/Hives Verified 05/02/20 14:00 [From Imdur] Review of Systems ROS Statement: Those systems with pertinent positive or pertinent negative responses have been documented in the HPI. ROS Other: All systems not noted in ROS Statement are negative. Past Medical History Past Medical History: Atrial Fibrillation, Cancer, CVA/TIA, Diabetes Mellitus, GERD/Reflux, Hyperlipidemia, Hypertension, Osteoarthritis (OA), Syncope Additional Past Medical History / Comment(s): OSteoporosis, hiatal hernia, diverticulosis, polyps, cervical cancer, DJD, History of Any Multi-Drug Resistant Organisms: None Reported Past Surgical History: Back Surgery, Heart Catheterization, Hysterectomy Additional Past Surgical History / Comment(s): EGD, Colonoscopy, bilateral cataract removed, "fatty tumor" removed from her back. Past Anesthesia/Blood Transfusion Reactions: No Reported Reaction, Motion Sickness Additional Past Anesthesia/Blood Transfusion Reaction / Comment(s): Pt has never recieved blood. SON "CODED" POST HIP REPLACEMENT Past Psychological History: Anxiety Smoking Status: Never smoker Past Alcohol Use History: None Reported Past Drug Use History: None Reported - Past Family History Father Family Medical History: Myocardial Infarction ([place]) Additional Family Medical History / Comment(s): Father of a [place] at age 76yrs. Mother Family Medical History: CVA/TIA Additional Family Medical History / Comment(s): Mother had a CVA at age 88yrs. She at age 92yrs. General Exam Limitations: no limitations General appearance: alert, in no apparent distress Head exam: Present: atraumatic, normocephalic, normal inspection Eye exam: Present: normal appearance, PERRL, EOMI. Absent: scleral icterus, con junctival injection, periorbital swelling ENT exam: Present: normal exam, mucous membranes moist Neck exam: Present: normal inspection. Absent: tenderness, meningismus, lymphadenopathy Respiratory exam: Present: normal lung sounds bilaterally. Absent: respiratory distress, wheezes, rales, rhonchi, stridor Cardiovascular Exam: Present: regular rate, normal rhythm, normal heart sounds. Absent: systolic murmur, diastolic murmur, rubs, gallop, clicks GI/Abdominal exam: Present: soft, normal bowel sounds. Absent: distended, tenderness, guarding, rebound, rigid Extremities exam: Present: normal inspection, full ROM, normal capillary refill. Absent: tenderness, pedal edema, joint swelling, calf tenderness Back exam: Present: normal inspection Neurological exam: Present: alert, oriented X3, CN II-XII intact Psychiatric exam: Present: normal affect, normal mood Skin exam: Present: warm, dry, intact, normal color. Absent: rash Course Vital Signs 05/28/20 05/28/20 15:23 16:50 Temperature 98.6 F Pulse Rate 84 80 Respiratory 18 18 Rate Blood Pressure 129/55 142/58 O2 Sat by Pulse 96 98 Oximetry - Reevaluation(s) Reevaluation #1: 05/28/20 16:16 Medical record is reviewed Reevaluation #2: 05/28/20 17:28 Patient still feeling uneasy about discharge still having tightness in her chest she is very nervous and she was home alone earlier - Consultations Consultation #1: Spoke with sound for admission they are agreeable Medical Decision Making - Medical Decision Making Female DEL with nonspecific atypical chest pain but chest tightness as well with history of cardiac risk factors. Patient felt very sick earlier at home with sweating and shortness of breath and nausea, patient has persistent symptoms cur rently and [place] for cardiac observation - Lab Data Result diagrams: 05/28/20 15:52 05/28/20 15:52 Lab Results 05/28/20 05/28/20 05/28/20 Range/Units 15:52 15:52 15:52 WBC 10.6 (3.8-10.6) k/uL RBC 4.09 (3.80-5.40) m/uL Hgb 10.5 L (11.4-16.0) gm/dL Hct 32.9 L (34.0-46.0) % MCV 80.5 (80.0-100.0) fL MCH 25.6 (25.0-35.0) pg MCHC 31.8 (31.0-37.0) g/dL RDW 14.8 (11.5-15.5) % Plt Count 430 (150-450) k/uL Neutrophils % 81 % Lymphocytes % 10 % Monocytes % 6 % Eosinophils % 2 % Basophils % 0 % Neutrophils # 8.6 H (1.3-7.7) k/uL Lymphocytes # 1.1 (1.0-4.8) k/uL Monocytes # 0.6 (0-1.0) k/uL Eosinophils # 0.2 (0-0.7) k/uL Basophils # 0.0 (0-0.2) k/uL PT 10.0 (9.0-12.0) sec INR 1.0 (<1.2) APTT 23.0 (22.0-30.0) sec Sodium 133 L (137-145) mmol/L Potassium 4.6 (3.5-5.1) mmol/L Chloride 101 (98-107) mmol/L Carbon Dioxide 22 (22-30) mmol/L Anion Gap 10 mmol/L BUN 18 H (7-17) mg/dL Creatinine 0.71 (0.52-1.04) mg/dL Est GFR (CKD-EPI)AfAm >90 (>60 ml/min/1.73 sqM) Est GFR (CKD-EPI)NonAf 82 (>60 ml/min/1.73 sqM) Glucose 169 H (74-99) mg/dL Calcium 9.2 (8.4-10.2) mg/dL Magnesium 1.8 (1.6-2.3) mg/dL Total Bilirubin 0.6 (0.2-1.3) mg/dL AST 35 (14-36) U/L ALT 109 H (4-34) U/L Alkaline Phosphatase 108 (38-126) U/L Creatine Kinase 40 (30-135) U/L Troponin I (0.000-0.034) ng/mL NT-Pro-B Natriuret Pep pg/mL Total Protein 6.4 (6.3-8.2) g/dL Albumin 3.8 (3.5-5.0) g/dL 05/28/20 05/28/20 Range/Units 15:52 15:52 WBC (3.8-10.6) k/uL RBC (3.80-5.40) m/uL Hgb (11.4-16.0) gm/dL Hct (34.0-46.0) % MCV (80.0-100.0) fL MCH (25.0-35.0) pg MCHC (31.0-37.0) g/dL RDW (11.5-15.5) % Plt Count (150-450) k/uL Neutrophils % % Lymphocytes % % Monocytes % % Eosinophils % % Basophils % % Neutrophils # (1.3-7.7) k/uL Lymphocytes # (1.0-4.8) k/uL Monocytes # (0-1.0) k/uL Eosinophils # (0-0.7) k/uL Basophils # (0-0.2) k/uL PT (9.0-12.0) sec INR (<1.2) APTT (22.0-30.0) sec Sodium (137-145) mmol/L Potassium (3.5-5.1) mmol/L Chloride (98-107) mmol/L Carbon Dioxide (22-30) mmol/L Anion Gap mmol/L BUN (7-17) mg/dL Creatinine (0.52-1.04) mg/dL Est GFR (CKD-EPI)AfAm (>60 ml/min/1.73 sqM) Est GFR (CKD-EPI)NonAf (>60 ml/min/1.73 sqM) Glucose (74-99) mg/dL Calcium (8.4-10.2) mg/dL Magnesium (1.6-2.3) mg/dL Total Bilirubin (0.2-1.3) mg/dL AST (14-36) U/L ALT (4-34) U/L Alkaline Phosphatase (38-126) U/L Creatine Kinase (30-135) U/L Troponin I <0.012 (0.000-0.034) ng/mL NT-Pro-B Natriuret Pep 1850 pg/mL Total Protein (6.3-8.2) g/dL Albumin (3.5-5.0) g/dL - EKG Data -: EKG Interpreted by Me (EKG sinus rhythm 81 pO2 66 QRS 88 QTc 427) - Radiology Data Radiology results: report reviewed (Chest x-rays negative for acute disease), image reviewed Disposition Clinical Impression: Diabetes mellitus, Hypercholesterolemia, Panic attack, Chest pain Disposition: ADMITTED IP TO THIS [facility] Condition: Undetermined Is patient prescribed a controlled substance at d/c from ED?: No Referrals: Gen Palma MD [Primary Care Provider] - 1-2 days
[2020-05-28 16:13] LABS: Basophils % (A) 0 %; Eosinophils # (A) 0.2 k/uL (0-0.7); Eosinophils % (A) 2 %; HCT 32.9 % (34.0-46.0); HGB 10.5 gm/dL (11.4-16.0); Lymphocytes # (A) 1.1 k/uL (1.0-4.8); Lymphocytes % (A) 10 %; MCH 25.6 pg (25.0-35.0); MCHC 31.8 g/dL (31.0-37.0); MCV 80.5 fL (80.0-100.0); Mean Platelet Volume 7.7; Monocytes # (A) 0.6 k/uL (0-1.0); Monocytes % (A) 6 %; Neutrophils # (A) 8.6 k/uL (1.3-7.7); Neutrophils % (A) 81 %; Platelet Count 430 k/uL (150-450); RBC 4.09 m/uL (3.80-5.40); RDW 14.8 % (11.5-15.5); WBC 10.6 k/uL (3.8-10.6)
[2020-05-28] MEDS ORDERED: FAMOTIDINE 20 MG/2 ML VIAL IV STA (16:14)
[2020-05-28] MEDS ORDERED: diphenhydrAMINE 50 MG/ML 1 ML VIAL IVP STA (16:14)
--- NOTE | 2020-05-28 16:27 | XR ---
EXAMINATION TYPE: XR chest 2V DATE OF EXAM: 05/28/2020 COMPARISON: 05/02/2020 HISTORY: 79 year-old female shortness of breath, difficulty breathing TECHNIQUE: PA and lateral views FINDINGS: The cardiomediastinal silhouette, aorta, and pulmonary vasculature are within normal limits. Some str spencer atelectasis at the left base. Calcified granuloma at the right base projecting over the hemidiap hragm. Otherwise, lungs and pleural spaces are clear. IMPRESSION: No acute cardiopulmonary process. Prior granulomatous disease.
[2020-05-28 16:31] LABS: ALT 109 U/L (4-34); AST 35 U/L (14-36); African American GFR (CKD) >90 (>60 ml/min/1.73 sqM); Albumin 3.8 g/dL (3.5-5.0); Alkaline Phosphatase 108 U/L (38-126); Anion Gap 10 mmol/L; Blood Urea Nitrogen 18 mg/dL (7-17); Calcium 9.2 mg/dL (8.4-10.2); Carbon Dioxide 22 mmol/L (22-30); Chloride 101 mmol/L (98-107); Creatine Kinase 40 U/L (30-135); Glucose 169 mg/dL (74-99); Magnesium 1.8 mg/dL (1.6-2.3); Non-African American GFR(CKD) 82 (>60 ml/min/1.73 sqM); Potassium 4.6 mmol/L (3.5-5.1); Sodium 133 mmol/L (137-145); Total Bilirubin 0.6 mg/dL (0.2-1.3); Total Protein 6.4 g/dL (6.3-8.2)
[2020-05-28] MEDS ORDERED: MORPHINE SULFATE 4 MG/ML SYRINGE IV PRN (17:25)
[2020-05-28] MEDS ORDERED: NITROGLYCERIN SL TABS 0.4 MG TAB SUBLINGUAL PRN (17:25)
[2020-05-28] MEDS ORDERED: ASPIRIN 81 MG PO STA (17:25)
[2020-05-28] MEDS: SODIUM CHLORIDE 0.9% 1,000 ML IV SCH ×2 (18:47→21:58)
--- NOTE | 2020-05-29 01:45 | P.HPIM ---
History of Present Illness H&P Date: 05/28/20 The patient is a 79-year-old female with a PMH of A. fib (on Xarelto), hypertension, hyperlipidemia, and type II DM who presented to the ED with complaints of chest discomfort, near-syncope, and shortness of breath. The patient reports that she was using in her usual state of health until she woke up this morning around 6 AM with itching on her hands. She then noticed raised bumps (described as hives) throughout her body at around 9 AM with significant pruritus for which she went to her primary care where she was given an IM steroid injection and was prescribed a tapered oral steroid. She subsequently went shopping and her itching and rash gradually resolved. She was at home eating her dinner in the evening when she suddenly developed lightheadedness, squeezing chest discomfort, substernal, 8 out of 10, nonradiating, constant, with associated nausea. The patient went to her bathroom expecting to throw up, where she then became more dizzy and sat down. She subsequently activated her Poll Everywhere alert bracelet. She is unable to recall the duration of her symptoms, though noted that she did feel better when EMS arrived. Denied losing consciousness. Reports that she continued to have chest discomfort well into her ED presentation though her symptoms resolved prior to current interview. In the emergency room, EKG revealed sinus rhythm at 81 bpm with first-degree AV block as reviewed by me with no ST/T-wave changes noted. Chest x-ray was unremarkable. Laboratory evaluation revealed troponin of less than 0.012 with BNP 1850. Review of Systems Pertinent positives and negatives as discussed in HPI, a complete review of systems was performed and all other systems are negative. Past Medical History Past Medical History: Atrial Fibrillation, Cancer, CVA/TIA, Diabetes Mellitus, GERD/Reflux, Hyperlipidemia, Hypertension, Osteoarthritis (OA), Syncope Additional Past Medical History / Comment(s): OSteoporosis, hiatal hernia, diverticulosis, polyps, cervical cancer, DJD, History of Any Multi-Drug Resistant Organisms: None Reported Past Surgical History: Back Surgery, Heart Catheterization, Hysterectomy Additional Past Surgical History / Comment(s): EGD, Colonoscopy, bilateral cataract removed, "fatty tumor" removed from her back. Past Anesthesia/Blood Transfusion Reactions: No Reported Reaction, Motion Sickness Additional Past Anesthesia/Blood Transfusion Reaction / Comment(s): Pt has never recieved blood. SON "CODED" POST HIP REPLACEMENT Past Psychological History: Anxiety Smoking Status: Never smoker Past Alcohol Use History: None Reported Past Drug Use History: None Reported - Past Family History Father Family Medical History: Myocardial Infarction ([place]) Additional Family Medical History / Comment(s): Father of a [place] at age 76yrs. Mother Family Medical History: CVA/TIA Additional Family Medical History / Comment(s): Mother had a CVA at age 88yrs. She at age 92yrs. Medications and Allergies Home Medications Medication Instructions Recorded Confirmed Type metFORMIN HCL [Glucophage] 500 mg PO BID 07/02/15 05/28/20 History Aspirin 81 mg PO DAILY #1 chewable 07/04/15 05/28/20 Rx Cholecalciferol [Vitamin D3 (25 2,000 unit PO DAILY #0 07/15/15 05/28/20 History Mcg = 1000 Iu)] Cinnamon Bark [Cinnamon] 500 mg PO BID 07/15/15 05/28/20 History Vits A,C,E/Lutein/Minerals 1 tab PO BID 07/15/15 05/28/20 History [Ocuvite with Lutein Tablet] Acetaminophen Tab [Tylenol] 650 mg PO Q6H PRN 04/05/17 05/28/20 History Atorvastatin [Lipitor] 40 mg PO HS 04/05/17 05/28/20 History lisinopriL [Zestril] 20 mg PO HS 04/14/17 05/28/20 History Rivaroxaban [Xarelto] 20 mg PO HS 01/22/19 05/28/20 History Ferrous Sulfate [Iron (65 MG 325 mg PO Q48H 09/10/19 05/28/20 History Elemental)] Omeprazole 20 mg PO HS 09/10/19 05/28/20 History hydroCHLOROthiazide [Hydrodiuril] 25 mg PO DAILY 09/10/19 05/28/20 History Metoprolol Tartrate [Lopressor] 100 mg PO BID 05/02/20 05/28/20 History hydrALAZINE HCL [Apresoline] 75 mg PO TID 05/02/20 05/28/20 History Nystatin/Triamcin Cream [Mycolog 1 applic TOPICAL BID 05/28/20 05/28/20 History 100,000-0.1 Unit/gm-% Cream] Allergies Allergy/AdvReac Type Severity Reaction Status Date / Time amlodipine Allergy Anaphylaxis Verified 05/28/20 17:38 isosorbide mononitrate Allergy Rash/Hives Verified 05/28/20 17:38 [From dur] Physical Exam Vitals: Vital Signs Temp Pulse Resp BP BP Pulse Ox 05/28/20 20:07 80 18 146/65 99 05/28/20 20:00 97.8 F 138/66 94 L 05/28/20 16:50 80 18 142/58 98 05/28/20 15:23 98.6 F 84 18 129/55 96 Intake and Output 05/28/20 05/28/20 05/28/20 06:59 14:59 22:59 Other: Weight 66.224 kg General: non toxic, no distress, appears at stated age, normal weight Derm: no unusual rashes/lesions no unusual ecchymoses, warm, dry Head: atraumatic, normocephalic, symmetric Eyes: EOMI, no lid lag, anicteric sclera, pupils equal round reactive to light ENT: Nose and ears atraumatic, no thrush, no pharyngeal erythema Neck: No thyromegaly, no cervical lymphadenopathy, trachea midline, supple Mouth: no lip lesion, mucus membranes moist Cardiovascular: S1S2 reg, no murmur, positive posterior tibial pulse bilateral, no edema, capillary refill less than 2 seconds, no chest wall tenderness Lungs: CTA bilateral, no rhonchi, no rales , no accessory muscle use Abdominal: soft, nontender to palpation, no guarding, no appreciable organomegaly, normal bowel sounds Ext: no gross muscle atrophy, muscle strength 4 out of 5 in all 4 extremities grossly, no contractures, Neuro: CN II-XI grossly intact, light touch intact all 4 extremities, finger to nose within normal limits, Psych: Alert, oriented, appropriate affect Results CBC & Chem 7: 05/28/20 15:52 05/28/20 15:52 Labs: Abnormal Lab Results - Last 24 Hours (Table) 05/28/20 05/28/20 Range/Units 15:52 15:52 Hgb 10.5 L (11.4-16.0) gm/dL Hct 32.9 L (34.0-46.0) % Neutrophils # 8.6 H (1.3-7.7) k/uL Sodium 133 L (137-145) mmol/L BUN 18 H (7-17) mg/dL Glucose 169 H (74-99) mg/dL ALT 109 H (4-34) U/L Assessment and Plan Plan: Chest discomfort, near-syncope, rule out acute coronary syndrome -Cardiology consult -Cardiac monitoring -Trend troponin -Continue with aspirin -Check orthostatic vital signs -Echocardiogram Paroxysmal A. fib -Continue with home med Xarelto -Cardiac monitoring Chronic conditions: Hypertension, hyperlipidemia, type II DM -Lispro insulin sliding scale with blood glucose monitoring -Continue with home meds Lipitor, lisinopril, HCTZ, hydralazine DVT prophylaxis -Xarelto The patient is admitted with an anticipated less than 2 midnight stay for evaluation of chest pain CODE STATUS: Full Code Discussed with: Patient Anticipated discharge date: 1-[address]: Home A total of 40 minutes was spent on the care of this complex patient more than 50% of the time was spent in counseling and care coordination.
[2020-05-29] MEDS ORDERED: methylPREDNISolone SOD SUCCI 40 MG/ML 1 ML VIAL IV STA (03:57)
[2020-05-29] MEDS ORDERED: diphenhydrAMINE 25 MG CAP PO STA (04:03)
[2020-05-29 04:36] LABS: Cholesterol 99 mg/dL (<200); HDL Cholesterol 35 mg/dL (40-60); LDL Cholesterol,Calculated 43 mg/dL (0-99); Triglycerides 103 mg/dL (<150)
[2020-05-29 06:17] LABS: Glucose,Whole Blood 147 mg/dL (75-99)
[2020-05-29] MEDS: INSULIN ASPART (NovoLOG) 100 UNIT/ML VIAL SQ SCH ×3 (06:19→17:22)
[2020-05-29] MEDS ORDERED: DOBUTamine DRIP for NUC MED 500 MG in DEXTROSE/WATER 1 250ML.BAG IV ONE (08:46)
[2020-05-29 08:57] VITALS: RESP 16
[2020-05-29] MEDS ORDERED: ASPIRIN 81 MG PO SCH (09:00)
[2020-05-29] MEDS ORDERED: methylPREDNISolone 4 MG TAB TAPER PO SCH (09:00)
[2020-05-29] MEDS ORDERED: METOPROLOL TARTRATE 50 MG TAB PO SCH (09:00)
[2020-05-29] MEDS ORDERED: ASPIRIN 325 MG TAB PO SCH (09:00)
[2020-05-29] MEDS ORDERED: hydroCHLOROthiazide 25 MG TAB PO SCH (09:00)
--- NOTE | 2020-05-29 09:53 | P.CRDCN ---
History of Present Illness History of present illness: HISTORY OF PRESENTING ILLNESS This is a pleasant 79-year-old female past medical history significant for diffuse nonobstructive coronary artery disease per cardiac catheterization 2013, diabetes mellitus, hypertension, dyslipidemia, carotid artery disease, atrial fibrillation and gastroesophageal reflux disease. She follows in the office with Dr. Carias. We have been asked to see in consultation for chest pain. She states yesterday morning she woke up and noticed her hands were quite itchy. She is vazquez tube drawer and went back to sleep. She slept for approximately 3 more hours and then woke up again feeling her hands itchy and also noticed a rash on her torso and legs. She went to the urgent care and was given a steroid shot and a Medrol Dosepak. She went home and approximately 90 minutes later was sitting down when she noticed acute onset of diaphoresis, lig htheaded and a tight squeezing sensation around her upper chest. The symptoms lasted for approximately 3-4 minutes and subsided on their own. She has had no further chest discomfort since arriving in the hospital however she continues to have itchiness. There is no noted rashes on the visualized skin. DIAGNOSTICS EKG sinus mechanism with first-degree AV block heart rate 81 no ischemic changes reveals []. Chest xray negative for an acute cardiopulmonary process with evidence of calcified granulomas at the right base. Laboratory reviewed, WBC 10.6, hemoglobin 14.8, platelets 430, sodium 133, potassium 4.6, creatinine 0.71, magnesium 1.8, cardiac enzymes negative 3, and Cipro BNP 1850, LDL 43 and HDL 35. Current cardiac medications include aspirin 81 mg daily, atorvastatin 40 mg daily, Lopressor 100 mg twice a day, Xarelto 20 mg at bedtime, hydralazine 75 mg 3 times a day, hydrochlorothiazide 25 mg daily and lisinopril 20 mg at bedtime. Most recent echocardiogram obtained September 2019 reveals preserved LV systolic function with ejection fraction 55-60%, grade 2 diastolic dysfunction, mild aortic regurgitation, mild mitral regurgitation and mild tricuspid regurgitation. REVIEW OF SYSTEMS At the time of my exam: CONSTITUTIONAL: Denies fever or chills. CARDIOVASCULAR: Denies chest pain, shortness of breath, orthopnea, PND or palpitations. RESPIRATORY: Denies cough. GASTROINTESTINAL: Denies abdominal pain, diarrhea, constipation, nausea or vomiting. MUSCULOSKELETAL: Denies myalgias. NEUROLOGIC: Denies numbness, tingling or weakness. ENDOCRINE: Denies fatigue, weight change, polydipsia or polyurina. GENITOURINARY: Denies burning, hematuria or urgency with micturation. HEMATOLOGIC: Denies history of anemia or bleeding. PHYSICAL EXAMINATION Blood pressure 149/64 heart rate 74 afebrile and maintaining oxygen saturation on room air. CONSTITUTIONAL: No apparent distress. HEENT: Head is normocephalic. Pupils are equal, round. Sclerae anicteric. Mucous membranes of the mouth are moist. No JVD. No carotid bruit. CHEST EXAMINATION: Lungs are clear to auscultation. No chest wall tenderness is noted on palpation or with deep breathing. HEART EXAMINATION: Regular rate and rhythm. S1, S2 heard. No murmurs, gallops or rub. ABDOMEN: Soft, nontender. Positive bowel sounds. EXTREMITIES: 2+ peripheral pulses, no lower extremity edema and no calf tenderness. NEUROLOGIC EXAMINATION: Patient is awake, alert and oriented x3. ASSESSMENT Chest pain Acute ALLERGIC reaction Paroxysmal atrial fibrillation on long-term anticoagulation Hypertension Dyslipidemia Nonobstructive coronary artery disease PLAN An acute coronary event has been ruled out. Symptoms may be related to steroid injection causing flushing and tachycardia. We will perform a dobutamine stress echocardiogram to assess for stress-induced ischemia. Echocardiogram has been obtained and will be reviewed. Ongoing medical management of ongoing ALLERGIC reaction. Thank you kindly for this consultation. Nurse Practitioner note has been reviewed, I agree with a documented findings and plan of care. Patient was seen and examined. Past Medical History Past Medical History: Atrial Fibrillation, Cancer, CVA/TIA, Diabetes Mellitus, GERD/Reflux, Hyperlipidemia, Hypertension, Osteoarthritis (OA), Syncope Additional Past Medical History / Comment(s): OSteoporosis, hiatal hernia, diverticulosis, polyps, cervical cancer, DJD, History of Any Multi-Drug Resistant Organisms: None Reported Past Surgical History: Back Surgery, Heart Catheterization, Hysterectomy Additional Past Surgical History / Comment(s): EGD, Colonoscopy, bilateral cataract removed, "fatty tumor" removed from her back. Past Anesthesia/Blood Transfusion Reactions: No Reported Reaction, Motion Sickness Additional Past Anesthesia/Blood Transfusion Reaction / Comment(s): Pt has never recieved blood. SON "CODED" POST HIP REPLACEMENT Past Psychological History: Anxiety Smoking Status: Never smoker Past Alcohol Use History: None Reported Past Drug Use History: None Reported - Past Family History Father Family Medical History: Myocardial Infarction (AL) Additional Family Medical History / Comment(s): Father of a AL at age 76yrs. Mother Family Medical History: CVA/TIA Additional Family Medical History / Comment(s): Mother had a CVA at age 88yrs. She at age 92yrs. Medications and Allergies Home Medications Medication Instructions Recorded Confirmed Type metFORMIN HCL [Glucophage] 500 mg PO BID 07/02/15 05/28/20 History Aspirin 81 mg PO DAILY #1 chewable 07/04/15 05/28/20 Rx Cholecalciferol [Vitamin D3 (25 2,000 unit PO DAILY #0 07/15/15 05/28/20 History Mcg = 1000 Iu)] Cinnamon Bark [Cinnamon] 500 mg PO BID 07/15/15 05/28/20 History Vits A,C,E/Lutein/Minerals 1 tab PO BID 07/15/15 05/28/20 History [Ocuvite with Lutein Tablet] Acetaminophen Tab [Tylenol] 650 mg PO Q6H PRN 04/05/17 05/28/20 History Atorvastatin [Lipitor] 40 mg PO HS 04/05/17 05/28/20 History lisinopriL [Zestril] 20 mg PO HS 04/14/17 05/28/20 History Rivaroxaban [Xarelto] 20 mg PO HS 01/22/19 05/28/20 History Ferrous Sulfate [Iron (65 MG 325 mg PO Q48H 09/10/19 05/28/20 History Elemental)] Omeprazole 20 mg PO HS 09/10/19 05/28/20 History hydroCHLOROthiazide [Hydrodiuril] 25 mg PO DAILY 09/10/19 05/28/20 History Metoprolol Tartrate [Lopressor] 100 mg PO BID 05/02/20 05/28/20 History hydrALAZINE HCL [Apresoline] 75 mg PO TID 05/02/20 05/28/20 History Nystatin/Triamcin Cream [Mycolog 1 applic TOPICAL BID 05/28/20 05/28/20 History 100,000-0.1 Unit/gm-% Cream] Allergies Allergy/AdvReac Type Severity Reaction Status Date / Time amlodipine Allergy Anaphylaxis Verified 05/28/20 17:38 isosorbide mononitrate Allergy Rash/Hives Verified 05/28/20 17:38 [From Imdur] Physical Exam Vitals: Vital Signs Temp Pulse Pulse Resp BP BP Pulse Ox 05/29/20 08:54 97.6 F 74 16 149/64 96 05/29/20 03:59 97.8 F 153/68 96 05/28/20 20:07 80 18 146/65 99 05/28/20 20:00 97.8 F 138/66 94 L 05/28/20 16:50 80 18 142/58 98 05/28/20 15:23 98.6 F 84 18 129/55 96 Intake and Output 05/28/20 05/29/20 05/29/20 22:59 06:59 14:59 Intake Total 220 40 Output Total 500 Balance -280 40 Intake: Intake, IV Titration 20 40 Amount Sodium Chloride 0.9% 1, 20 40 000 ml @ 20 mls/hr IV . Q24H [facility] Rx#:[id number] Oral 200 Output: Urine 500 Other: # Voids 1 Weight 66.224 kg 66.27 kg Results 05/28/20 15:52 05/28/20 15:52 Cardiac Enzymes 05/28/20 05/28/20 05/28/20 Range/Units 15:52 15:52 18:20 AST 35 (14-36) U/L Troponin I <0.012 <0.012 (0.000-0.034) ng/mL 05/28/20 Range/Units 22:55 AST (14-36) U/L Troponin I <0.012 (0.000-0.034) ng/mL Coagulation 05/28/20 Range/Units 15:52 PT 10.0 (9.0-12.0) sec APTT 23.0 (22.0-30.0) sec Lipids 05/28/20 Range/Units 03:45 Triglycerides 103 (<150) mg/dL Cholesterol 99 (<200) mg/dL HDL Cholesterol 35 L (40-60) mg/dL CBC 05/28/20 Range/Units 15:52 WBC 10.6 (3.8-10.6) k/uL RBC 4.09 (3.80-5.40) m/uL Hgb 10.5 L (11.4-16.0) gm/dL Hct 32.9 L (34.0-46.0) % Plt Count 430 (150-450) k/uL Comprehensive Metabolic Panel 05/28/20 Range/Units 15:52 Sodium 133 L (137-145) mmol/L Potassium 4.6 (3.5-5.1) mmol/L Chloride 101 (98-107) mmol/L Carbon Dioxide 22 (22-30) mmol/L BUN 18 H (7-17) mg/dL Creatinine 0.71 (0.52-1.04) mg/dL Glucose 169 H (74-99) mg/dL Calcium 9.2 (8.4-10.2) mg/dL AST 35 (14-36) U/L ALT 109 H (4-34) U/L Alkaline Phosphatase 108 (38-126) U/L Total Protein 6.4 (6.3-8.2) g/dL Albumin 3.8 (3.5-5.0) g/dL Current Medications Generic Name Dose Route Start Last Admin Trade Name Freq PRN Reason Stop Dose Admin Aspirin 81 mg 05/29/20 09:00 Aspirin PO DAILY [facility] Atorvastatin Calcium 40 mg 05/29/20 21:00 Lipitor PO HS [facility] Hydralazine HCl 75 mg 05/29/20 09:00 Apresoline PO TID [facility] Hydrochlorothiazide 25 mg 05/29/20 09:00 Hydrodiuril PO DAILY [facility] Sodium Chloride 1,000 mls @ 20 mls/hr 05/28/20 17:30 05/28/20 21:58 Saline 0.9% IV 20 mls/hr .Q24H JOHN Administration Dobutamine HCl/Dextrose 500 mg 250 mls @ 19.881 mls/hr 05/29/20 08:46 / IV Solution IV 05/29/20 21:20 .[id number] ONE Protocol 10 MCG/KG/MIN Insulin Aspart 0 unit 05/29/20 07:30 05/29/20 06:19 Novolog SQ 1 unit AC-TID JOHN Administration Protocol Lisinopril 20 mg 05/29/20 21:00 Zestril PO HS [facility] Methylprednisolone 24 mg 05/29/20 09:00 Medrol Dose Pack PO 06/04/20 08:59 DAILY JOHN Taper Metoprolol Tartrate 100 mg 05/29/20 09:00 Lopressor PO BID [facility] Morphine Sulfate 4 mg 05/28/20 17:25 05/29/20 04:27 Morphine Sulfate (Inj) IV 4 mg Q6HR PRN Administration Chest Pain Nitroglycerin 0.4 mg 05/28/20 17:25 Nitrostat SUBLINGUAL Q5M PRN Chest Pain Rivaroxaban 20 mg 05/29/20 21:00 Xarelto PO HS [facility] Intake and Output 05/28/20 05/29/20 05/29/20 22:59 06:59 14:59 Intake Total 220 40 Output Total 500 Balance -280 40 Intake: Intake, IV Titration 20 40 Amount Sodium Chloride 0.9% 1, 20 40 000 ml @ 20 mls/hr IV . Q24H [facility] Rx#:[id number] Oral 200 Output: Urine 500 Other: # Voids 1 Weight 66.224 kg 66.27 kg 05/28/20 15:52 05/28/20 15:52
--- NOTE | 2020-05-29 10:00 | ECHOF ---
Referral Reason:chest pain, near-syncope MEASUREMENTS -------- HEIGHT: 154.9 cm WEIGHT: 66.2 kg BP: 153/68 RVIDd: 2.9 cm (< 3.3) IVSd: 1.2 cm (0.6 - 1.1) LVIDd: 4.8 cm (3.9 - 5.3) LVPWd: 1.2 cm (0.6 - 1.1) IVSs: 1.6 cm LVIDs: 2.9 cm LVPWs: 1.6 cm LA Diam: 3.8 cm (2.7 - 3.8) LAESV Index (A-L): 38.23 ml/m Ao Diam: 2.8 cm (2.0 - 3.7) AV Cusp: 1.7 cm (1.5 - 2.6) MV EXCURSION: 7.592 mm (> 18.000) MV EF SLOPE: 24 mm/s (70 - 150) EPSS: 0.6 cm MV E Nathaniel: 1.66 m/s MV DecT: 238 ms MV A Nathaniel: 1.34 m/s MV E/A Ratio: 1.23 AV maxP.49 mmHg AV meanP.60 mmHg AR PHT: 406 ms RAP: 5.00 mmHg RVSP: 38.79 mmHg FINDINGS -------- Sinus rhythm. This was a technically good study. The left ventricular size is normal. There is borderline concentric left ventricular hypertrophy. Overall left ventricular systolic function is normal with, an EF between 60 - 65 %. The right ventricle is normal in size. LA is moderately dilated 34-39 ml/m2 The right atrium is normal in size. Interatrial and interventricular septum intact. There is mild aortic valve sclerosis. There is mild aortic regurgitation. The mitral valve leaflets are mildly thickened. Moderate mitral annular calcification present. Mi ld mitral regurgitation is present. The peak and mean MV gradients are 12.27mmHg 4.91mmHg as measu red by doppler. Mild mitral stenosis. Mild tricuspid regurgitation present. There is mild pulmonary hypertension. The right ventricular systolic pressure, as measured by Doppler, is 38.79mmHg. Trace/mild (physiologic) pulmonic regurgitation. The aortic root size is normal. Normal inferior vena cava with normal inspiratory collapse consistent with estimated right atrial pre ssure of 5 mmHg. There is no pericardial effusion. CONCLUSIONS -------- 1. The left ventricular size is normal. 2. There is borderline concentric left ventricular hypertrophy. 3. Overall left ventricular systolic function is normal with, an EF between 60 - 65 %. 4. LA is moderately dilated 34-39 ml/m2 5. There is mild aortic valve sclerosis. 6. There is mild aortic regurgitation. 7. The mitral valve leaflets are mildly thickened. 8. Moderate mitral annular calcification present.restricted posterior leflet frpm calcificatrion 9. Mild mitral regurgitation is present. 10. The peak and mean MV gradients are 12.27mmHg 4.91mmHg as measured by doppler. 11. Mild mitral stenosis. 12. Mild tricuspid regurgitation present. 13. There is mild pulmonary hypertension. 14. The right ventricular systolic pressure, as measured by Doppler, is 38.79mmHg. 15. Trace/mild (physiologic) pulmonic regurgitation. 16. There is no pericardial effusion. HOME COMPANION: Natali Beckham RDCS
[2020-05-29] MEDS: hydrALAZINE HCL 50 MG TAB PO SCH ×2 (10:02→17:22)
[2020-05-29] MEDS ORDERED: RANOLAZINE 500 MG TAB.ER.12H PO SCH (12:45)
--- NOTE | 2020-05-29 12:50 | ECHOS ---
STRESS ECHOCARDIOGRAM LUMASON: Vial INDICATIONS: Chest pain. MEDICATIONS: BASELINE HEART RATE: 85 BASELINE BLOOD PRESSURE: 138/49 MAXIMUM HEART RATE: 120 MAXIMUM BLOOD PRESSURE: 168/51 85% MPHR: 120 100% MPHR: 144 METS: MAXIMUM STAGE REACHED: TOTAL EXERCISE TIME: CLINICAL INFORMATION: Baseline EKG shows sinus rhythm, normal axis, normal intervals. The patient was given intravenous dobutamine over a period of 9 minutes as per protocol. Did not have chest pain. There was 1.[address]-segment depression in the inferolateral leads. Baseline echo shows normal left ventricular size, hypokinesis involving basal inferior zhang. It is a prior myocardial infarction with normal LV function with ejection fraction of 60%. Post dobutamine infusion, anterior wall, lateral wall, septum, and mid to distal inferior wall become normally hyperdynamic, basal inferior wall remains unchanged. CONCLUSION: 1. Abnormal stress test by EKG criteria. 2. Abnormal dobutamine echo showing evidence of prior inferior wall myocardial infarction with preserved LV function without any stress-induced ischemia. MMODL / IJN: [id number] /
[2020-05-29 15:09] VITALS: BP 130/62; PULSE 76; TEMP 97.9
--- NOTE | 2020-05-29 15:28 | P.DS ---
Providers Date of admission: 05/28/20 17:25 Expected date of discharge: 05/29/20 Attending physician: Lisa Patel MD Consults: 05/29/20 08:11 Consult Physician Stat Consulting Provider: Parul Garcia Consult Reason/Comments: chest pain Do you want consulting provider notified?: Yes Primary care physician: Gen Palma Hospital Course: Discharge Diagnosis: Chest Pain Allergic dermatitis Paroxysmal A fib HTN HLD DM 2 CAD Hospital Course: Patient is a 79-year-old female with known Paroxysmal A. fib, hypertension, dyslipidemia, and diabetes mellitus type 2 who presented to the emergency department secondary to chest discomfort associated with near syncope and shortness of breath. This occurred after receiving a steroid injection from her primary care physician due to dermatitis. In the ER she underwent an extensive evaluation. EKG revealed a first-degree AV block with no significant ST-T wave changes. Chest x-ray was unremarkable. Laboratory evaluation showed a troponin of less than 0.0 to have BNP of 1850. Her repeat troponin remained negative. She was admitted as observation. Cardiology was consulted and she underwent an Dobutamine stress echo. Which demonstrated evidence of prior inferior wall myocardial infarction with preserved left ventricular function and no stress- induced ischemia. Her dermatitis was improved. Cardiology recommended the addition of Renexa. She will follow up with Dr. Jaquez in 2 weeks. She will follow-up with her PCP Dr. Palma next week for recheck on dermatitis. Patient seen and examined at bedside. No chest pain, no nausea, did have another episode of itching and rash this morning which resolved with steroids Vital signs reviewed and stable. General: non toxic, no distress, appears at stated age Derm: palmar erythema, flat macular rash on left knee and abdomen (very dimished per patient), no tunnels or burrows, warm, dry Head: atraumatic, normocephalic, symmetric Eyes: EOMI, no lid lag, anicteric sclera Mouth: no lip lesion, mucus membranes moist Cardiovascular: S1S2 reg, no murmur, positive posterior tibial pulse bilateral, Lungs: CTA bilateral, no rhonchi, no rales , no accessory muscle use Abdominal: soft, nontender to palpation, no guarding, no appreciable organomegaly Ext: no gross muscle atrophy, no edema, no contractures Neuro: CN II-XI grossly intact, no focal neuro deficits Psych: Alert, oriented, appropriate affect A total of 25 minutes of time were spent preparing this complex discharge summary . Patient Condition at Discharge: Stable Plan - Discharge Summary Discharge Rx Participant: No New Discharge Prescriptions: New methylPREDNISolone Dose Pack [Medrol Dose Pack] 4 mg PO DIRECTED #21 package Ranolazine [Ranexa] 500 mg PO Q12HR #60 tab.er.12h Continue metFORMIN HCL [Glucophage] 500 mg PO BID Aspirin 81 mg PO DAILY #1 chewable Vits A,C,E/Lutein/Minerals [Ocuvite with Lutein Tablet] 1 tab PO BID Cinnamon Bark [Cinnamon] 500 mg PO BID Cholecalciferol [Vitamin D3 (25 Mcg = 1000 Iu)] 2,000 unit PO DAILY #0 Atorvastatin [Lipitor] 40 mg PO HS Acetaminophen Tab [Tylenol] 650 mg PO Q6H PRN PRN Reason: Pain lisinopriL [Zestril] 20 mg PO HS Rivaroxaban [Xarelto] 20 mg PO HS hydroCHLOROthiazide [Hydrodiuril] 25 mg PO DAILY Omeprazole 20 mg PO HS Ferrous Sulfate [Iron (65 MG Elemental)] 325 mg PO Q48H Metoprolol Tartrate [Lopressor] 100 mg PO BID hydrALAZINE HCL [Apresoline] 75 mg PO TID Nystatin/Triamcin Cream [Mycolog 100,000-0.1 Unit/gm-% Cream] 1 applic TOPICAL BID Discharge Medication List metFORMIN HCL [Glucophage] 500 mg PO BID 07/02/15 [History] Aspirin 81 mg PO DAILY #1 chewable 07/04/15 [Rx] Cholecalciferol [Vitamin D3 (25 Mcg = 1000 Iu)] 2,000 unit PO DAILY #0 07/15/15 [History] Cinnamon Bark [Cinnamon] 500 mg PO BID 07/15/15 [History] Vits A,C,E/Lutein/Minerals [Ocuvite with Lutein Tablet] 1 tab PO BID 07/15/15 [History] Acetaminophen Tab [Tylenol] 650 mg PO Q6H PRN 04/05/17 [History] Atorvastatin [Lipitor] 40 mg PO HS 04/05/17 [History] lisinopriL [Zestril] 20 mg PO HS 04/14/17 [History] Rivaroxaban [Xarelto] 20 mg PO HS 01/22/19 [History] Ferrous Sulfate [Iron (65 MG Elemental)] 325 mg PO Q48H 09/10/19 [History] Omeprazole 20 mg PO HS 09/10/19 [History] hydroCHLOROthiazide [Hydrodiuril] 25 mg PO DAILY 09/10/19 [History] Metoprolol Tartrate [Lopressor] 100 mg PO BID 05/02/20 [History] hydrALAZINE HCL [Apresoline] 75 mg PO TID 05/02/20 [History] Nystatin/Triamcin Cream [Mycolog 100,000-0.1 Unit/gm-% Cream] 1 applic TOPICAL BID 05/28/20 [History] Ranolazine [Ranexa] 500 mg PO Q12HR #60 tab.er.12h 05/29/20 [Rx] methylPREDNISolone Dose Pack [Medrol Dose Pack] 4 mg PO DIRECTED #21 package 05/29/20 [Rx] Follow up Appointment(s)/Referral(s): Gen Palma MD [Primary Care Provider] - 1-2 days Kevin Carias MD [STAFF PHYSICIAN] - 2 Weeks Activity/Diet/Wound Care/Special Instructions: Activity: as tolerated Diet: heart healthy Discharge Disposition: HOME SELF-CARE
[2020-05-29 16:09] LABS: Glucose,Whole Blood 210 mg/dL (75-99)
[2020-05-29] MEDS ORDERED: RIVAROXABAN 20 MG TAB PO SCH (21:00)
[2020-05-29] MEDS ORDERED: ATORVASTATIN 40 MG TAB PO SCH (21:00)
[2020-05-29] MEDS ORDERED: lisinopriL 20 MG TAB PO SCH (21:00)
== END 2020-05-29 17:43 | disposition home or self-care (01) ==
LOC: EC 15:20 → 3SCARD 17:25 → 3NCARDOBS 18:12
PROVIDERS: ADMIT Family Medicine; ATTEND Family Medicine
DX: T38.0X5A Adverse effect of glucocorticoids and synthetic analogues, initial encounter (principal); R07.89 Other chest pain; R42 Dizziness and giddiness; R11.0 Nausea; R06.02 Shortness of breath; R55 Syncope and collapse; R61 Generalized hyperhidrosis; R23.2 Flushing; R00.0 Tachycardia, unspecified; I48.0 Paroxysmal atrial fibrillation; L23.9 Allergic contact dermatitis, unspecified cause; I10 Essential (primary) hypertension; E78.5 Hyperlipidemia, unspecified; E11.9 Type 2 diabetes mellitus without complications; I25.10 Atherosclerotic heart disease of native coronary artery without angina pectoris; R94.39 Abnormal result of other cardiovascular function study; K21.9 Gastro-esophageal reflux disease without esophagitis; M19.90 Unspecified osteoarthritis, unspecified site; M81.0 Age-related osteoporosis without current pathological fracture; K44.9 Diaphragmatic hernia without obstruction or gangrene; K57.90 Diverticulosis of intestine, part unspecified, without perforation or abscess without bleeding; I25.2 Old myocardial infarction; I44.30 Unspecified atrioventricular block; F41.9 Anxiety disorder, unspecified; I08.3 Combined rheumatic disorders of mitral, aortic and tricuspid valves; I27.20 Pulmonary hypertension, unspecified; Z79.84 Long term (current) use of oral hypoglycemic drugs; Z79.82 Long term (current) use of aspirin; Z79.899 Other long term (current) drug therapy; Z79.01 Long term (current) use of anticoagulants; Z88.8 Allergy status to other drugs, medicaments and biological substances; Z85.41 Personal history of malignant neoplasm of cervix uteri; Z86.73 Personal history of transient ischemic attack (TIA), and cerebral infarction without residual deficits; Z87.898 Personal history of other specified conditions; Z98.890 Other specified postprocedural states; Z90.710 Acquired absence of both cervix and uterus; Z98.41 Cataract extraction status, right eye; Z98.42 Cataract extraction status, left eye; Z87.2 Personal history of diseases of the skin and subcutaneous tissue; Z87.891 Personal history of nicotine dependence; Z84.89 Family history of other specified conditions; Z82.49 Family history of ischemic heart disease and other diseases of the circulatory system; Z82.3 Family history of stroke; Y92.019 Unspecified place in single-family (private) house as the place of occurrence of the external cause
CPT/HCPCS: 93005 ×2; 96375 ×2; 96374; 99285; 36415; 93306; 93351; 83880; 80061; 80053; 82550; 83735; 84484; 85025; 85610; 85730; 71046; G0378 ×3; J1250; J2270; J1200; J2920; J7509

== ENCOUNTER 2020-05-30 01:53 | Emergency (ER) | payer MEDICARE, BC ==
[2020-05-30 02:00] VITALS: BP 189/95; PULSE 92; RESP 20; TEMP 98.1
--- NOTE | 2020-05-30 02:31 | ED ---
General Adult HPI - General Chief complaint: Skin/Abscess/Foreign Body Stated complaint: Hives Time Seen by Provider: 05/30/20 02:07 Source: patient, RN notes reviewed Mode of arrival: ambulatory Limitations: no limitations - History of Present Illness Initial comments: 79-year-old female with a complicated past medical history presents to the emergency room for a chief complaint of rash. Patient reports that she has had hives for the past about 3 days. Reports that they have come and gone. Patient states her whole body is itching. She denies being started on any new medications preceding these hives. Denies any new detergents or clothes. Patient denies starting any new foods. She denies swelling of the lips tongue or throat or difficulty breathing. Patient reports that she saw her primary care doctor today who started her on a Medrol Dosepak. Patient has not taken Benadryl.Patient has no other complaints at this time including shortness of breath, chest pain, abdominal pain, nausea or vomiting, headache, or visual changes. - Related Data Home Medications Medication Instructions Recorded Confirmed metFORMIN HCL [Glucophage] 500 mg PO BID 07/02/15 05/28/20 Cholecalciferol [Vitamin D3 (25 2,000 unit PO DAILY #0 07/15/15 05/28/20 Mcg = 1000 Iu)] Cinnamon Bark [Cinnamon] 500 mg PO BID 07/15/15 05/28/20 Vits A,C,E/Lutein/Minerals 1 tab PO BID 07/15/15 05/28/20 [Ocuvite with Lutein Tablet] Acetaminophen Tab [Tylenol] 650 mg PO Q6H PRN 04/05/17 05/28/20 Atorvastatin [Lipitor] 40 mg PO HS 04/05/17 05/28/20 lisinopriL [Zestril] 20 mg PO HS 04/14/17 05/28/20 Rivaroxaban [Xarelto] 20 mg PO HS 01/22/19 05/28/20 Ferrous Sulfate [Iron (65 MG 325 mg PO Q48H 09/10/19 05/28/20 Elemental)] Omeprazole 20 mg PO HS 09/10/19 05/28/20 hydroCHLOROthiazide [Hydrodiuril] 25 mg PO DAILY 09/10/19 05/28/20 Metoprolol Tartrate [Lopressor] 100 mg PO BID 05/02/20 05/28/20 hydrALAZINE HCL [Apresoline] 75 mg PO TID 05/02/20 05/28/20 Nystatin/Triamcin Cream [Mycolog 1 applic TOPICAL BID 05/28/20 05/28/20 100,000-0.1 Unit/gm-% Cream] Previous Rx's Medication Instructions Recorded Aspirin 81 mg PO DAILY #1 chewable 07/04/15 Ranolazine [Ranexa] 500 mg PO Q12HR #60 tab.er.12h 05/29/20 methylPREDNISolone Dose Pack 4 mg PO DIRECTED #21 package 05/29/20 [Medrol Dose Pack] diphenhydrAMINE [Benadryl] 25 mg PO QID PRN #20 capsule 05/30/20 Allergies Allergy/AdvReac Type Severity Reaction Status Date / Time amlodipine Allergy Anaphylaxis Verified 05/30/20 02:00 isosorbide mononitrate Allergy Rash/Hives Verified 05/30/20 02:00 [From Imdur] Review of Systems ROS Statement: Those systems with pertinent positive or pertinent negative responses have been documented in the HPI. ROS Other: All systems not noted in ROS Statement are negative. Past Medical History Past Medical History: Atrial Fibrillation, Cancer, CVA/TIA, Diabetes Mellitus, GERD/Reflux, Hyperlipidemia, Hypertension, Osteoarthritis (OA), Syncope Additional Past Medical History / Comment(s): OSteoporosis, hiatal hernia, diverticulosis, polyps, cervical cancer, DJD, History of Any Multi-Drug Resistant Organisms: None Reported Past Surgical History: Back Surgery, Heart Catheterization, Hysterectomy Additional Past Surgical History / Comment(s): EGD, Colonoscopy, bilateral cataract removed, "fatty tumor" removed from her back. Past Anesthesia/Blood Transfusion Reactions: No Reported Reaction, Motion Sickness Additional Past Anesthesia/Blood Transfusion Reaction / Comment(s): Pt has never recieved blood. SON "CODED" POST HIP REPLACEMENT Past Psychological History: Anxiety Smoking Status: Never smoker Past Alcohol Use History: None Reported Past Drug Use History: None Reported - Past Family History Father Family Medical History: Myocardial Infarction ([place]) Additional Family Medical History / Comment(s): Father of a [place] at age 76yrs. Mother Family Medical History: CVA/TIA Additional Family Medical History / Comment(s): Mother had a CVA at age 88yrs. She at age 92yrs. General Exam Limitations: no limitations General appearance: alert, in no apparent distress Head exam: Present: atraumatic, normocephalic, normal inspection Eye exam: Present: normal appearance, PERRL, EOMI. Absent: scleral icterus, conjunctival injection, periorbital swelling ENT exam: Present: normal exam, normal oropharynx (no edema of the lips tongue or throat), mucous membranes moist Neck exam: Present: normal inspection. Absent: tenderness, meningismus, lymphadenopathy Respiratory exam: Present: normal lung sounds bilaterally. Absent: respiratory distress, wheezes, rales, rhonchi, stridor Cardiovascular Exam: Present: regular rate, normal rhythm, normal heart sounds. Absent: systolic murmur, diastolic murmur, rubs, gallop, clicks GI/Abdominal exam: Present: soft, normal bowel sounds. Absent: distended, tenderness, guarding, rebound, rigid Skin exam: Present: warm, dry, intact, normal color, rash, urticaria (patient has urticaria noted of the extremities and torso.) Course Vital Signs 05/30/20 01:58 Temperature 98.1 F Pulse Rate 92 Respiratory 20 Rate Blood Pressure 189/95 O2 Sat by Pulse 95 Oximetry Medical Decision Making - Medical Decision Making patient was given Benadryl in the emergency department for hives. She does not have any evidence of angioedema. Patient is already on a steroid dose pack. At this time patient will follow up with primary care. I did discuss she may need to see an classroom technology coach if symptoms do not improve. If she has any worsening symptoms such as swelling of the lips or throat she will return here to the emergency room. Disposition Clinical Impression: Hives Disposition: HOME SELF-CARE Condition: Good Instructions (If sedation given, give patient instructions): Urticaria (ED) Additional Instructions: please take Benadryl as directed. Do not drive while taking Benadryl. Follow- up with your doctor in one to 2 days. Return here to the emergency room for any worsening symptoms. Prescriptions: diphenhydrAMINE [Benadryl] 25 mg PO QID PRN #20 capsule PRN Reason: itching Is patient prescribed a controlled substance at d/c from ED?: No Referrals: Gen Palma MD [Primary Care Provider] - 1-2 days Time of Disposition: 02:30
[2020-05-30] MEDS ORDERED: diphenhydrAMINE 50 MG CAP PO STA (02:48)
== END 2020-05-30 03:01 | disposition home or self-care (01) ==
LOC: EC 01:53
DX: L50.9 Urticaria, unspecified (principal); I48.91 Unspecified atrial fibrillation; E11.9 Type 2 diabetes mellitus without complications; E78.5 Hyperlipidemia, unspecified; I10 Essential (primary) hypertension; M19.90 Unspecified osteoarthritis, unspecified site; M81.0 Age-related osteoporosis without current pathological fracture; F41.9 Anxiety disorder, unspecified; K21.9 Gastro-esophageal reflux disease without esophagitis; Z79.84 Long term (current) use of oral hypoglycemic drugs; Z79.82 Long term (current) use of aspirin; Z79.899 Other long term (current) drug therapy; Z88.8 Allergy status to other drugs, medicaments and biological substances; Z85.41 Personal history of malignant neoplasm of cervix uteri; Z86.73 Personal history of transient ischemic attack (TIA), and cerebral infarction without residual deficits; Z95.5 Presence of coronary angioplasty implant and graft
CPT/HCPCS: 99282

== ENCOUNTER 2020-10-20 17:26 | Observation (INO) | payer MEDICARE, BC ==
--- NOTE | 2020-10-20 18:09 | ED ---
General Adult HPI - General Chief complaint: Weakness Stated complaint: weakness Time Seen by Provider: 10/20/20 17:40 Source: patient, EMS, RN notes reviewed Limitations: no limitations - History of Present Illness Initial comments: Patient is a pleasant 80-year-old female presenting to the emergency Department with a syncopal versus near-syncopal episode. Patient states she was cooking and suddenly became very warm and weak. Patient states she went to her bed and lay down. Patient is unclear if she may have passed out for a second. Patient states she feels a little bit foggy. Patient does have some upper thoracic back discomfort that has been pretty consistent for over the past month now. Patient has seen her doctor for this and had x-rays. Patient is pending a orthopedic evaluation for this. No chest pain. No nausea. No isolated area of weakness. Patient states she has had somewhat similar symptoms a couple of times previously. - Related Data Home Medications Medication Instructions Recorded Confirmed metFORMIN HCL [Glucophage] 500 mg PO BID 07/02/15 10/20/20 Cholecalciferol [Vitamin D3 (25 2,000 unit PO DAILY #0 07/15/15 10/20/20 Mcg = 1000 Iu)] Cinnamon Bark [Cinnamon] 500 mg PO BID 07/15/15 10/20/20 Vits A,C,E/Lutein/Minerals 1 tab PO BID 07/15/15 10/20/20 [Ocuvite with Lutein Tablet] Acetaminophen Tab [Tylenol] 650 mg PO Q6H PRN 04/05/17 10/20/20 Atorvastatin [Lipitor] 40 mg PO HS 04/05/17 10/20/20 lisinopriL [Zestril] 20 mg PO HS 04/14/17 10/20/20 Rivaroxaban [Xarelto] 20 mg PO AC-SUPPER 01/22/19 10/20/20 Ferrous Sulfate [Iron (65 MG 325 mg PO Q48H 09/10/19 10/20/20 Elemental)] Omeprazole 20 mg PO HS 09/10/19 10/20/20 hydroCHLOROthiazide [Hydrodiuril] 25 mg PO DAILY 09/10/19 10/20/20 hydrALAZINE HCL [Apresoline] 75 mg PO AC-TID 05/02/20 10/20/20 Nystatin/Triamcin Cream [Mycolog 1 applic TOPICAL BID 05/28/20 10/20/20 100,000-0.1 Unit/gm-% Cream] Metoprolol Tartrate [Lopressor] 50 mg PO BID 10/20/20 10/20/20 Ranolazine [Ranexa] 500 mg PO Q12HR PRN 10/20/20 10/20/20 Previous Rx's Medication Instructions Recorded Aspirin 81 mg PO DAILY #1 chewable 07/04/15 diphenhydrAMINE [Benadryl] 25 mg PO QID PRN #20 capsule 05/30/20 Allergies Allergy/AdvReac Type Severity Reaction Status Date / Time amlodipine Allergy Anaphylaxis Verified 10/20/20 19:18 isosorbide mononitrate Allergy Rash/Hives Verified 10/20/20 19:18 [From Imdur] Review of Systems ROS Statement: Those systems with pertinent positive or pertinent negative responses have been documented in the HPI. ROS Other: All systems not noted in ROS Statement are negative. Constitutional: Denies: fever Eyes: Denies: eye pain ENT: Denies: ear pain Respiratory: Denies: cough, dyspnea Cardiovascular: Denies: chest pain Endocrine: Reports: fatigue Gastrointestinal: Denies: abdominal pain Genitourinary: Denies: dysuria Musculoskeletal: Reports: as per HPI, back pain Skin: Denies: rash Neurological: Denies: headache, weakness Past Medical History Past Medical History: Atrial Fibrillation, Cancer, CVA/TIA, Diabetes Mellitus, GERD/Reflux, Hyperlipidemia, Hypertension, Osteoarthritis (OA), Syncope Additional Past Medical History / Comment(s): OSteoporosis, hiatal hernia, diverticulosis, polyps, cervical cancer, DJD, History of Any Multi-Drug Resistant Organisms: None Reported Past Surgical History: Back Surgery, Heart Catheterization, Hysterectomy Additional Past Surgical History / Comment(s): EGD, Colonoscopy, bilateral ca taract removed, "fatty tumor" removed from her back. Past Anesthesia/Blood Transfusion Reactions: No Reported Reaction, Motion Sickness Additional Past Anesthesia/Blood Transfusion Reaction / Comment(s): Pt has never recieved blood. SON "CODED" POST HIP REPLACEMENT Past Psychological History: Anxiety Smoking Status: Former smoker Past Alcohol Use History: None Reported Past Drug Use History: None Reported - Past Family History Father Family Medical History: Myocardial Infarction ([place]) Additional Family Medical History / Comment(s): Father of a [place] at age 76yr s. Mother Family Medical History: CVA/TIA Additional Family Medical History / Comment(s): Mother had a CVA at age 88yrs. She at age 92yrs. General Exam Limitations: no limitations General appearance: alert, in no apparent distress Head exam: Present: atraumatic, normocephalic Eye exam: Present: normal appearance, PERRL, EOMI. Absent: nystagmus ENT exam: Present: normal oropharynx Neck exam: Present: normal inspection Respiratory exam: Present: normal lung sounds bilaterally Cardiovascular Exam: Present: regular rate, normal rhythm Expanded Peripheral pulses: 2+: Radial (R), Radial (L), Dorsalis Pedis (R), Dorsalis Pedis (L) GI/Abdominal exam: Present: soft. Absent: tenderness Extremities exam: Present: normal inspection. Absent: pedal edema, calf tenderness Back exam: Present: tenderness (Mild tenderness of the thoracic spine near the T8 region) Neurological exam: Present: alert, oriented X3, CN II-XII intact. Absent: motor sensory deficit Expanded Neurological exam: Present: protecting the airway Patient oriented to: Present: person, place, time Speech: Present: fluid speech Cranial nerves: EOM's Intact: Normal, Facial Sensation: Normal Sensory exam: Upper Extremity Light Touch: Normal, Lower Extremity Light Touch: Normal Motor strength exam: RUE: 5, LUE: 5, RLE: 5, LLE: 5 Eye Response: (4) open spontaneously Motor Response: (6) obeys commands Verbal Response: (5) oriented Psychiatric exam: Present: normal affect, normal mood Skin exam: Present: normal color Course Vital Signs 10/20/20 10/20/20 17:35 18:39 Temperature 98 F Pulse Rate 73 71 Respiratory 18 18 Rate Blood Pressure 155/58 119/75 O2 Sat by Pulse 99 98 Oximetry EKG Findings - EKG Comments: EKG Findings:: Sinus rhythm at 75. For screening AV block with a HI of 244. QRS 82. QT 398. QTC 444. Normal axis. Normal QRS. No acute ST change. Medical Decision Making - Medical Decision Making Patient reevaluated and updated. Case discussed with Dr. Ronquillo, who will admit covering for Dr. Palma. - Lab Data Result diagrams: 10/20/20 18:08 10/20/20 18:08 Lab Results 10/20/20 10/20/20 10/20/20 Range/Units 18:08 18:08 18:08 WBC 11.7 H (3.8-10.6) k/uL RBC 4.10 (3.80-5.40) m/uL Hgb 10.6 L (11.4-16.0) gm/dL Hct 33.0 L (34.0-46.0) % MCV 80.6 (80.0-100.0) fL MCH 25.9 (25.0-35.0) pg MCHC 32.1 (31.0-37.0) g/dL RDW 15.4 (11.5-15.5) % Plt Count 462 H (150-450) k/uL MPV 6.8 Neutrophils % 79 % Lymphocytes % 13 % Monocytes % 5 % Eosinophils % 1 % Basophils % 1 % Neutrophils # 9.3 H (1.3-7.7) k/uL Lymphocytes # 1.6 (1.0-4.8) k/uL Monocytes # 0.6 (0-1.0) k/uL Eosinophils # 0.1 (0-0.7) k/uL Basophils # 0.1 (0-0.2) k/uL Hypochromasia Slight PT 10.8 (9.0-12.0) sec INR 1.0 (<1.2) APTT 22.6 (22.0-30.0) sec D-Dimer 0.26 (<0.60) mg/L FEU Sodium (137-145) mmol/L Potassium (3.5-5.1) mmol/L Chloride (98-107) mmol/L Carbon Dioxide (22-30) mmol/L Anion Gap mmol/L BUN (7-17) mg/dL Creatinine (0.52-1.04) mg/dL Est GFR (CKD-EPI)AfAm (>60 ml/min/1.73 sqM) Est GFR (CKD-EPI)NonAf (>60 ml/min/1.73 sqM) Glucose (74-99) mg/dL POC Glucose (mg/dL) (75-99) mg/dL POC Glu Baking Powder Mixer ID Calcium (8.4-10.2) mg/dL Magnesium (1.6-2.3) mg/dL Total Bilirubin (0.2-1.3) mg/dL AST (14-36) U/L ALT (4-34) U/L Alkaline Phosphatase (38-126) U/L Troponin I (0.000-0.034) ng/mL Total Protein (6.3-8.2) g/dL Albumin (3.5-5.0) g/dL Urine Color Yellow Urine Appearance Cloudy H (Clear) Urine pH 6.5 (5.0-8.0) Ur Specific [place] 1.018 (1.001-1.035) Urine Protein Negative (Negative) Urine Glucose (UA) Negative (Negative) Urine Ketones Negative (Negative) Urine Blood Negative (Negative) Urine Nitrite Positive H (Negative) Urine Bilirubin Negative (Negative) Urine Urobilinogen <2.0 (<2.0) mg/dL Ur Leukocyte Esterase Moderate H (Negative) Urine RBC 1 (0-5) /hpf Urine WBC 22 H (0-5) /hpf Ur Squamous Epith Cells 5 H (0-4) /hpf Urine Bacteria Moderate H (None) /hpf Hyaline Casts 6 H (0-2) /lpf Urine Mucus Rare H (None) /hpf Urine Yeast (Budding) Occasional H (None) /hpf 10/20/20 10/20/20 10/20/20 Range/Units 18:08 18:08 18:18 WBC (3.8-10.6) k/uL RBC (3.80-5.40) m/uL Hgb (11.4-16.0) gm/dL Hct (34.0-46.0) % MCV (80.0-100.0) fL MCH (25.0-35.0) pg MCHC (31.0-37.0) g/dL RDW (11.5-15.5) % Plt Count (150-450) k/uL MPV Neutrophils % % Lymphocytes % % Monocytes % % Eosinophils % % Basophils % % Neutrophils # (1.3-7.7) k/uL Lymphocytes # (1.0-4.8) k/uL Monocytes # (0-1.0) k/uL Eosinophils # (0-0.7) k/uL Basophils # (0-0.2) k/uL Hypochromasia PT (9.0-12.0) sec INR (<1.2) APTT (22.0-30.0) sec D-Dimer (<0.60) mg/L FEU Sodium 136 L (137-145) mmol/L Potassium 4.8 (3.5-5.1) mmol/L Chloride 103 (98-107) mmol/L Carbon Dioxide 24 (22-30) mmol/L Anion Gap 9 mmol/L BUN 25 H (7-17) mg/dL Creatinine 1.01 (0.52-1.04) mg/dL Est GFR (CKD-EPI)AfAm 61 (>60 ml/min/1.73 sqM) Est GFR (CKD-EPI)NonAf 53 (>60 ml/min/1.73 sqM) Glucose 172 H (74-99) mg/dL POC Glucose (mg/dL) 150 H (75-99) mg/dL POC Glu Baking Powder Mixer ID Sandy Barraza Calcium 9.7 (8.4-10.2) mg/dL Magnesium 1.8 (1.6-2.3) mg/dL Total Bilirubin 0.3 (0.2-1.3) mg/dL AST 21 (14-36) U/L ALT 15 (4-34) U/L Alkaline Phosphatase 63 (38-126) U/L Troponin I <0.012 (0.000-0.034) ng/mL Total Protein 6.8 (6.3-8.2) g/dL Albumin 4.0 (3.5-5.0) g/dL Urine Color Urine Appearance (Clear) Urine pH (5.0-8.0) Ur Specific [place] (1.001-1.035) Urine Protein (Negative) Urine Glucose (UA) (Negative) Urine Ketones (Negative) Urine Blood (Negative) Urine Nitrite (Negative) Urine Bilirubin (Negative) Urine Urobilinogen (<2.0) mg/dL Ur Leukocyte Esterase (Negative) Urine RBC (0-5) /hpf Urine WBC (0-5) /hpf Ur Squamous Epith Cells (0-4) /hpf Urine Bacteria (None) /hpf Hyaline Casts (0-2) /lpf Urine Mucus (None) /hpf Urine Yeast (Budding) (None) /hpf - Radiology Data Radiology results: image reviewed (Chest x-ray shows no acute process) Disposition Clinical Impression: Syncope Disposition: ADMITTED IP TO THIS HOSP Is patient prescribed a controlled substance at d/c from ED?: No Referrals: Gen Palma MD [Primary Care Provider] - 1-2 days Decision Time: 20:04
[2020-10-20 18:14] LABS: Basophils # (A) 0.1 k/uL (0-0.2); Basophils % (A) 1 %; Eosinophils # (A) 0.1 k/uL (0-0.7); Eosinophils % (A) 1 %; HGB 10.6 gm/dL (11.4-16.0); Hypochromasia Slight; Lymphocytes # (A) 1.6 k/uL (1.0-4.8); Lymphocytes % (A) 13 %; MCH 25.9 pg (25.0-35.0); MCHC 32.1 g/dL (31.0-37.0); MCV 80.6 fL (80.0-100.0); Mean Platelet Volume 6.8; Monocytes # (A) 0.6 k/uL (0-1.0); Monocytes % (A) 5 %; Neutrophils # (A) 9.3 k/uL (1.3-7.7); Neutrophils % (A) 79 %; Platelet Count 462 k/uL (150-450); RDW 15.4 % (11.5-15.5); WBC 11.7 k/uL (3.8-10.6)
--- NOTE | 2020-10-20 18:18 | XR ---
EXAMINATION TYPE: XR chest 2V DATE OF EXAM: 10/20/2020 COMPARISON: 05/28/2020 HISTORY: Syncope TECHNIQUE: FINDINGS: Heart is normal. Lungs are clear of consolidation. There are no hilar masses. There are karthik st leads. Thoracic aorta is atheromatous. Costophrenic angles are clear. IMPRESSION: No active cardiopulmonary disease. No change.
[2020-10-20 18:21] LABS: Glucose,Whole Blood 150 mg/dL (75-99)
[2020-10-20 18:28] LABS: Calcium 9.7 mg/dL (8.4-10.2); Magnesium 1.8 mg/dL (1.6-2.3); Potassium 4.8 mmol/L (3.5-5.1); Total Bilirubin 0.3 mg/dL (0.2-1.3); Total Protein 6.8 g/dL (6.3-8.2)
[2020-10-20 18:36] LABS: D-Dimer 0.26 mg/L FEU (<0.60); Partial Thromboplastin Time 22.6 sec (22.0-30.0); Prothrombin Time 10.8 sec (9.0-12.0)
[2020-10-20 19:08] LABS: Appearance,Urine Cloudy (Clear); Bacteria,Urine Moderate /hpf; Bilirubin,Urine Negative (Negative); Blood,Urine Negative (Negative); Budding Yeast,Urine Occasional /hpf; Color,Urine Yellow; Glucose,Urine (UA) Negative (Negative); Hyaline Casts,Urine 6 /lpf (0-2); Ketones,Urine Negative (Negative); Leukocyte Esterase,Urine Moderate (Negative); Mucus,Urine Rare /hpf; Nitrite,Urine Positive (Negative); PH, Urine 6.5 (5.0-8.0); Protein,Urine Negative (Negative); RBC,Urine 1 /hpf (0-5); Specific Gravity,Urine 1.018 (1.001-1.035); Squamous Epithelial Cell,Urine 5 /hpf (0-4); Urobilinogen,Urine <2.0 mg/dL (<2.0); WBC,Urine 22 /hpf (0-5)
[2020-10-20] MEDS ORDERED: NALOXONE 0.4 MG/ML 1 ML VIAL IV PRN (20:04)
[2020-10-20] MEDS ORDERED: lisinopriL 20 MG TAB PO SCH (22:30)
[2020-10-20] MEDS ORDERED: PANTOPRAZOLE 40 MG TABLET PO SCH (22:30)
[2020-10-20] MEDS ORDERED: FERROUS SULFATE 325 MG TAB PO SCH (22:30)
[2020-10-20] MEDS ORDERED: ATORVASTATIN 40 MG TAB PO SCH (22:30)
[2020-10-20] MEDS: METOPROLOL TARTRATE 50 MG TAB PO SCH (22:57)
[2020-10-20] MEDS: metFORMIN 500 MG TAB PO SCH (22:57)
[2020-10-20] MEDS: ACETAMINOPHEN TAB 325 MG TAB PO PRN (23:01)
[2020-10-21 06:50] LABS: Glucose,Whole Blood 108 mg/dL (75-99)
[2020-10-21] MEDS: hydrALAZINE HCL 25 MG TAB PO SCH ×2 (06:51→12:07)
[2020-10-21] MEDS: ACETAMINOPHEN TAB 325 MG TAB PO PRN (06:54)
[2020-10-21 07:42] LABS: Basophils # (A) 0.1 k/uL (0-0.2); Basophils % (A) 1 %; Eosinophils # (A) 0.1 k/uL (0-0.7); Eosinophils % (A) 1 %; HCT 29.7 % (34.0-46.0); HGB 9.8 gm/dL (11.4-16.0); Hypochromasia Slight; Lymphocytes # (A) 2.1 k/uL (1.0-4.8); Lymphocytes % (A) 18 %; MCH 26.5 pg (25.0-35.0); MCHC 32.9 g/dL (31.0-37.0); MCV 80.7 fL (80.0-100.0); Mean Platelet Volume 6.8; Monocytes # (A) 1.2 k/uL (0-1.0); Monocytes % (A) 11 %; Neutrophils # (A) 7.7 k/uL (1.3-7.7); Neutrophils % (A) 68 %; Platelet Count 419 k/uL (150-450); RBC 3.68 m/uL (3.80-5.40); RDW 15.8 % (11.5-15.5); WBC 11.3 k/uL (3.8-10.6)
[2020-10-21 07:53] VITALS: BP 99/54; PULSE 75; RESP 20; TEMP 98.4
[2020-10-21 07:59] LABS: Albumin 3.7 g/dL (3.5-5.0); Calcium 9.2 mg/dL (8.4-10.2); Potassium 4.2 mmol/L (3.5-5.1); Total Bilirubin 0.4 mg/dL (0.2-1.3); Total Protein 6.3 g/dL (6.3-8.2)
[2020-10-21] MEDS ORDERED: ASPIRIN 81 MG PO SCH (09:00)
[2020-10-21] MEDS ORDERED: CHOLECALCIFEROL 1,000 UNIT TAB PO SCH (09:00)
[2020-10-21] MEDS ORDERED: PANTOPRAZOLE 40 MG/10 ML VIAL IV SCH (09:00)
[2020-10-21] MEDS ORDERED: hydroCHLOROthiazide 25 MG TAB PO SCH (09:00)
[2020-10-21] MEDS ORDERED: VIT A,C & E-LUTEIN-MINERALS 1 EACH TAB PO SCH (09:00)
[2020-10-21] MEDS: METOPROLOL TARTRATE 50 MG TAB PO SCH (09:33)
[2020-10-21] MEDS: metFORMIN 500 MG TAB PO SCH (09:34)
--- NOTE | 2020-10-21 09:44 | US ---
EXAMINATION TYPE: US carotid duplex BILAT DATE OF EXAM: 10/21/2020 COMPARISON: 12/17/2018 CLINICAL HISTORY: syncope. syncope, stroke years ago EXAM MEASUREMENTS: RIGHT: Peak Systolic Velocity (PSV) cm/sec ----- Right CCA: 106.2 ----- Right ICA: 119.9 ----- Right ECA: 122.0 ICA/CCA ratio: 1.1 RIGHT: End Diastole cm/sec ----- Right CCA: 20.5 ----- Right ICA: 30.6 ----- Right ECA: 6.9 LEFT: Peak Systolic Velocity (PSV) cm/sec ----- Left CCA: 109.1 ----- Left ICA: 139.4 ----- Left ECA: 93.5 ICA/CCA ratio: 1.3 LEFT: End Diastole cm/sec ----- Left CCA: 22.4 ----- Left ICA: 37.6 ----- Left ECA: 7.9 VERTEBRALS (direction of flow): Right Vertebral: Antegrade Left Vertebral: Antegrade Rhythm: Normal Mild heterogeneous plaque with no significant stenosis seen. IMPRESSION: 1. Atherosclerotic plaque with no significant hemodynamic stenosis Criteria for Assigning % of Stenosis / Diameter reduction (Estimation based on the indirect measurements of the internal carotid artery velocities (ICA PSV). 1. Normal (no stenosis)=ICA PSV < 125 cm/s: ratio < 2.0: ICA EDV<40 cm/s. 2. Less than 50% stenosis=ICA PSV < 125 cm/s: ratio < 2.0: ICA EDV<40 cm/s. 3. 50 to 69% stenosis=ICA PSV of 125 to 230 cm/s: ration 2.0 ? 4.0: ICA EDV 40-100 cm/s. 4. Greater than 70% stenosis to near occlusion= ICA PSV > 230 cm/s: ratio > 4.0: ICA EDV > 100 cm/s. 5. Near occlusion= ICA PSV velocities may be low or undetectable: variable ratio and ICA EDV. 6. Total occlusion=unable to detect flow.
--- NOTE | 2020-10-21 10:27 | P.CRDCN ---
History of Present Illness Consult date: 10/21/20 History of present illness: CHIEF COMPLAINT: Near syncope HISTORY OF PRESENT ILLNESS: This is a 80-year-old female with a past medical history significant for hypertension, hyperlipidemia, paroxysmal atrial fibrillation, nonobstructive coronary artery disease, diabetes mellitus, and osteoarthritis. Patient follows in the office with Dr. Carias. We have been asked to see the patient in consultation for syncope. Patient examined at this point the bedside. Patient states she was cooking dinner yesterday when she began to feel a warm sensation, over her body. She reports feeling lightheaded. She went to her bedroom and laid down for a little while. The patient did not actually pass out. She states she has had this happen multiple times in the past but has been unable to find a cause. She denies chest pain or pressure. She denies shortness of breath. DIAGNOSTICS: EKG reveals sinus mechanism with first-degree AV block. Heart rate 75 Chest xray negative for acute process Laboratory data: W BC 11.3. Hemoglobin 9.8. Platelet count 419. Sodium 137. Potassium 4.2. BUN 25. Creatinine 0.81. Troponin negative 3 Current home cardiac medications include lisinopril 20 mg daily, hy drochlorothiazide 25 mg daily, hydralazine 75 mg 3 times a day, Xarelto 20 mg daily, Ranexa 500 mg twice a day, metoprolol 50 mg twice a day, Lipitor 40 mg daily, aspirin 81 mg daily Patient underwent echocardiogram in May 2020 revealing ejection fraction 60- 65% Dobutamine stress test performed in May 2020 revealing evidence of prior KS but no evidence of acute ischemia Carotid Doppler: Atherosclerotic plaque with no significant hemodynamic stenosis REVIEW OF SYSTEMS: At the time of my exam: CONSTITUTIONAL: Denies fever or chills. HEENT: Denies blurred vision, vision changes, or eye pain. Denies hemoptysis CARDIOVASCULAR: Denies chest pain, orthopnea, PND or palpitations RESPIRATORY: No shortness of breath. GASTROINTESTINAL: Denies abdominal pain. Denies nausea or vomiting. HEMATOLOGIC: Denies bleeding disorders. GENITOURINARY: Denies any blood in urine. SKIN: Denies pruitis. Denies rash. PHYSICAL EXAM: VITAL SIGNS: Reviewed. GENERAL: Well-developed in no acute distress. HEENT: Head is normocephalic. Pupils are equal, round. Sclerae anicteric. Mucous membranes of the mouth are moist. Neck supple. No JVD or thyromegaly LUNGS: Respirations even and unlabored. Lungs essentially clear to auscultation bilaterally. HEART: Regular rate and rhythm. S1 and S2 heard. ABDOMEN: Soft. Nondistended. Nontender. EXTREMITIES: Normal range of motion. No clubbing or cyanosis. Peripheral pulses intact. No lower extremity edema NEUROLOGIC: Awake and alert. Oriented x 3. ASSESSMENT: Presyncope Hypertension Hyperlipidemia Paroxysmal atrial fibrillation, on long-term anticoagulation with Xarelto Diffuse nonobstructive CAD, per cath in 2013 Diabetes mellitus GERD Osteoarthritis PLAN: Orthostatics obtained and were unremarkable Patient had cardiac workup performed in May 2020 including echo and stress test No further cardiac workup at this time. Patient may be discharged home today from a cardiac perspective. She is to follow up outpatient with Dr. Carias Nurse practitioner note has been reviewed by physician. Signing provider agrees with the documented findings, assessment, and plan of care. Past Medical History Past Medical History: Atrial Fibrillation, Cancer, CVA/TIA, Diabetes Mellitus, GERD/Reflux, Hyperlipidemia, Hypertension, Osteoarthritis (OA), Syncope Additional Past Medical History / Comment(s): OSteoporosis, hiatal hernia, diverticulosis, polyps, cervical cancer, DJD, History of Any Multi-Drug Resistant Organisms: None Reported Past Surgical History: Back Surgery, Heart Catheterization, Hysterectomy Additional Past Surgical History / Comment(s): EGD, Colonoscopy, bilateral cataract removed, "fatty tumor" removed from her back. Past Anesthesia/Blood Transfusion Reactions: No Reported Reaction, Motion Sickness Additional Past Anesthesia/Blood Transfusion Reaction / Comment(s): Pt has never recieved blood. SON "CODED" POST HIP REPLACEMENT Past Psychological History: Anxiety Additional Psychological History / Comment(s): Pt lives alone. 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 She uses no assistive devices or home care. She drives. Smoking Status: Never smoker Past Alcohol Use History: None Reported Additional Past Alcohol Use History / Comment(s): Pt states she smoked for about 52 yrs 1 ppd and eventually up to 1 1/2 ppd but quit in 2008. Past Drug Use History: None Reported - Past Family History Father Family Medical History: Myocardial Infarction ([place]) Additional Family Medical History / Comment(s): Father of a [place] at age 7 6yrs. Mother Family Medical History: CVA/TIA Additional Family Medical History / Comment(s): Mother had a CVA at age 88yrs. She at age 92yrs. Medications and Allergies Home Medications Medication Instructions Recorded Confirmed Type metFORMIN HCL [Glucophage] 500 mg PO BID 07/02/15 10/20/20 History Aspirin 81 mg PO DAILY #1 chewable 07/04/15 10/20/20 Rx Cholecalciferol [Vitamin D3 (25 2,000 unit PO DAILY #0 07/15/15 10/20/20 History Mcg = 1000 Iu)] Cinnamon Bark [Cinnamon] 500 mg PO BID 07/15/15 10/20/20 History Vits A,C,E/Lutein/Minerals 1 tab PO BID 07/15/15 10/20/20 History [Ocuvite with Lutein Tablet] Acetaminophen Tab [Tylenol] 650 mg PO Q6H PRN 04/05/17 10/20/20 History Atorvastatin [Lipitor] 40 mg PO HS 04/05/17 10/20/20 History lisinopriL [Zestril] 20 mg PO HS 04/14/17 10/20/20 History Rivaroxaban [Xarelto] 20 mg PO AC-SUPPER 01/22/19 10/20/20 History Ferrous Sulfate [Iron (65 MG 325 mg PO Q48H 09/10/19 10/20/20 History Elemental)] Omeprazole 20 mg PO HS 09/10/19 10/20/20 History hydroCHLOROthiazide [Hydrodiuril] 25 mg PO DAILY 09/10/19 10/20/20 History hydrALAZINE HCL [Apresoline] 75 mg PO AC-TID 05/02/20 10/20/20 History Nystatin/Triamcin Cream [Mycolog 1 applic TOPICAL BID 05/28/20 10/20/20 History 100,000-0.1 Unit/gm-% Cream] diphenhydrAMINE [Benadryl] 25 mg PO QID PRN #20 capsule 05/30/20 10/20/20 Rx Metoprolol Tartrate [Lopressor] 50 mg PO BID 10/20/20 10/20/20 History Ranolazine [Ranexa] 500 mg PO Q12HR PRN 10/20/20 10/20/20 History Allergies Allergy/AdvReac Type Severity Reaction Status Date / Time amlodipine Allergy Anaphylaxis Verified 10/20/20 19:18 isosorbide mononitrate Allergy Rash/Hives Verified 10/20/20 19:18 [From Imdur] Physical Exam Vitals: Vital Signs Temp Pulse Pulse Pulse Pulse Pulse Resp 10/21/20 09:00 20 10/21/20 07:52 10/21/20 07:50 98.4 F 84 92 75 20 10/21/20 06:47 10/21/20 03:00 96.1 F L 95 16 10/20/20 21:23 96.1 F L 63 16 10/20/20 20:35 98.0 F 64 18 10/20/20 20:00 63 18 10/20/20 18:39 71 18 10/20/20 17:35 98 F 73 18 BP BP BP BP BP BP BP 10/21/20 09:00 10/21/20 07:52 10/21/20 07:50 118/61 118/67 104/54 99/54 10/21/20 06:47 138/63 10/21/20 03:00 110/54 10/20/20 21:23 186/71 10/20/20 20:35 144/64 10/20/20 20:00 10/20/20 18:39 119/75 10/20/20 17:35 155/58 Pulse Ox 10/21/20 09:00 10/21/20 07:52 97 10/21/20 07:50 95 10/21/20 06:47 10/21/20 03:00 95 10/20/20 21:23 98 10/20/20 20:35 98 10/20/20 20:00 10/20/20 18:39 98 10/20/20 17:35 99 Intake and Output 10/20/20 10/21/20 10/21/20 22:59 06:59 14:59 Other: Voiding Method Toilet Toilet # Voids 1 1 Weight 64.41 kg Results 10/21/20 07:22 10/21/20 07:22 Cardiac Enzymes 10/20/20 10/20/20 10/20/20 Range/Units 18:08 18:08 21:07 AST 21 (14-36) U/L Troponin I <0.012 <0.012 (0.000-0.034) ng/mL 10/21/20 10/21/20 Range/Units 00:06 07:22 AST 18 (14-36) U/L Troponin I <0.012 (0.000-0.034) ng/mL Coagulation 10/20/20 Range/Units 18:08 PT 10.8 (9.0-12.0) sec APTT 22.6 (22.0-30.0) sec CBC 10/20/20 10/21/20 Range/Units 18:08 07:22 WBC 11.7 H 11.3 H (3.8-10.6) k/uL RBC 4.10 3.68 L (3.80-5.40) m/uL Hgb 10.6 L 9.8 L (11.4-16.0) gm/dL Hct 33.0 L 29.7 L (34.0-46.0) % Plt Count 462 H 419 (150-450) k/uL Comprehensive Metabolic Panel 10/20/20 10/21/20 Range/Units 18:08 07:22 Sodium 136 L 137 (137-145) mmol/L Potassium 4.8 4.2 (3.5-5.1) mmol/L Chloride 103 104 (98-107) mmol/L Carbon Dioxide 24 25 (22-30) mmol/L BUN 25 H 25 H (7-17) mg/dL Creatinine 1.01 0.81 (0.52-1.04) mg/dL Glucose 172 H 113 H (74-99) mg/dL Calcium 9.7 9.2 (8.4-10.2) mg/dL AST 21 18 (14-36) U/L ALT 15 15 (4-34) U/L Alkaline Phosphatase 63 55 (38-126) U/L Total Protein 6.8 6.3 (6.3-8.2) g/dL Albumin 4.0 3.7 (3.5-5.0) g/dL Current Medications Generic Name Dose Route Start Last Admin Trade Name Freq PRN Reason Stop Dose Admin Acetaminophen 650 mg 10/20/20 22:40 10/21/20 06:54 Acetaminophen Tab 325 Mg Tab PO 650 mg Q6H PRN Administration Pain Aspirin 81 mg 10/21/20 09:00 10/21/20 09:33 Aspirin 81 Mg PO 81 mg DAILY JOHN Administration Atorvastatin Calcium 40 mg 10/20/20 22:30 10/20/20 22:57 Atorvastatin 40 Mg Tab PO 40 mg HS JOHN Administration Cholecalciferol 2,000 unit 10/21/20 09:00 10/21/20 09:33 Cholecalciferol 1,000 Unit Tab PO 2,000 unit DAILY JOHN Administration Ferrous Sulfate 325 mg 10/20/20 22:30 10/20/20 22:56 Ferrous Sulfate 325 Mg Tab PO Not Given Q48H [facility] Hydralazine HCl 75 mg 10/21/20 07:30 10/21/20 06:51 Hydralazine Hcl 25 Mg Tab PO 75 mg AC-TID JOHN Administration Hydrochlorothiazide 25 mg 10/21/20 09:00 Hydrochlorothiazide 25 Mg Tab PO DAILY [facility] Lisinopril 20 mg 10/20/20 22:30 10/20/20 22:57 Lisinopril 20 Mg Tab PO 20 mg HS JOHN Administration Metformin HCl 500 mg 10/20/20 22:30 10/21/20 09:34 Metformin 500 Mg Tab PO 500 mg BID JOHN Administration Metoprolol Tartrate 50 mg 10/20/20 22:30 10/21/20 09:33 Metoprolol Tartrate 50 Mg Tab PO 50 mg BID JOHN Administration Multivitamins/Minerals 1 each 10/21/20 09:00 10/21/20 09:34 Vit A,C & D-Xijglr-Icbyrsrq 1 Each Tab PO 1 each BID JOHN Administration Naloxone HCl 0.2 mg 10/20/20 20:04 Naloxone 0.4 Mg/Ml 1 Ml Vial IV Q2M PRN Opioid Reversal Pantoprazole Sodium 40 mg 10/21/20 09:00 10/21/20 09:33 Pantoprazole 40 Mg/10 Ml Vial IV 40 mg DAILY JOHN Administration Pantoprazole Sodium 40 mg 10/20/20 22:30 10/20/20 22:57 Pantoprazole 40 Mg Tablet PO 40 mg HS JOHN Administration Rivaroxaban 20 mg 10/21/20 17:30 Rivaroxaban 20 Mg Tab PO AC-SUPPER JOHN Intake and Output 10/20/20 10/21/20 10/21/20 22:59 06:59 14:59 Other: Voiding Method Toilet Toilet # Voids 1 1 Weight 64.41 kg 10/21/20 07:22 10/21/20 07:22
[2020-10-21 11:30] LABS: Glucose,Whole Blood 203 mg/dL (75-99)
[2020-10-21] MEDS ORDERED: hydrALAZINE HCL 50 MG TAB PO STA (12:06)
[2020-10-21 16:16] LABS: Hemoglobin A1C 6.3 % (4.0-6.0)
[2020-10-21] MEDS ORDERED: RIVAROXABAN 20 MG TAB PO SCH (17:30)
--- NOTE | 2020-10-21 22:37 | P.HPIM ---
History of Present Illness H&P Date: 10/21/20 Chief Complaint: syncope History of presenting complaint: This is a very pleasant 80-year-old patient of Dr. Palma. Chronic stable medical conditions include colonic diverticulosis, atrial fibrillation, diabetes, hypertension, hyperlipidemia, osteoarthritis, hiatal hernia. 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 No chest pain or palpitation. Decided to go to her bedroom and then she passed out on the bed. She thinks it maybe for 30 seconds. Does not tongue biting or shaking or incontinence. No chest pain no fever no chills. [place] back to normal self. Patient doesn't think she was dehydrated. Review of systems: GEN.: None EYES: None HEENT: None NECK: None RESPIRATORY: None CARDIOVASCULAR: None GASTROINTESTINAL: None GENITOURINARY: None MUSCULOSKELETAL: Joint pains LYMPHATICS: None HEMATOLOGICAL: None PSYCHIATRY: None NEUROLOGICAL: None Past medical history to include: Colonic diverticulosis, atrial fibrillation, diabetes, hypertension, hyperlipidemia, osteoarthritis, lateral hernia cervical cancer Social history: -lives alone. Smoked for 50 years between one to one half packs a day stopped in 2019. No alcohol. Physical examination: VITAL SIGNS: 98, 73, 18, 1 55 x 58, 99% room air GENERAL: BMI 27.7, laying in bed, comfortable. EYES: [Pupils equal. Conjunctiva jacob]l. HEENT: [External appearance of nose and ears normal, oral cavity grossly normal]. NECK: [JVD not raised; masses not palpable]. HEART: [First and second heart sounds are normal; no edema]. LUNGS:[ Respiratory rate normal; clear to auscultation]. ABDOMEN: [Soft, nontender, liver spleen not palpable, no masses palpable]. PSYCH: [Alert and oriented x3; mood and affect jacob]l. MUSCULAR skeletal: Evidence of OA NEUROLOGICAL: [Cranial nerves grossly intact; no facial asymmetry, power and sensation grossly intact]. LYMPHATICS: [No lymph nodes palpable in the axilla and neck] INVESTIGATIONS, reviewed in the clinical context: White count 11.7 hemoglobin 10.6 platelets 462 potassium 4.8 bun 25 creatinine 1.01 Troponin I 3 negative UA-contaminated sample EKG tracing personally reviewed by me-normal sinus rhythm Chest x-ray film personally reviewed by me-no obvious infiltrate Carotid Doppler no significant stenosis Assessment: -This is a patient who was working in the kitchen and suddenly felt dizzy [place] prodrome and Mr. Mobley from a 30 seconds. Denied have any other cardiac symptoms or neurological symptoms. Most likely vasovagal. It may be noted that patient's blood pressures actually running on the lower side. Patient not orthostatic. Patient has a recorded blood pressure this morning of 99 systolic. --Colonic diverticulosis and -Paroxysmal atrial fibrillation currently in sinus rhythm -Diabetes mellitus type 2 -Essential hypertension -Hyperlipidemia -Primary osteoarthritis -Hiatal hernia Plan: Cardiology was consulted. Patient is put on a court recording monitor. We'll scale back on patient antihypertensives. Care was discussed with the patient. Past Medical History Past Medical History: Atrial Fibrillation, Cancer, CVA/TIA, Diabetes Mellitus, GERD/Reflux, Hyperlipidemia, Hypertension, Osteoarthritis (OA), Syncope Additional Past Medical History / Comment(s): OSteoporosis, hiatal hernia, diverticulosis, polyps, cervical cancer, DJD, History of Any Multi-Drug Resistant Organisms: None Reported Past Surgical History: Back Surgery, Heart Catheterization, Hysterectomy Additional Past Surgical History / Comment(s): EGD, Colonoscopy, bilateral cataract removed, "fatty tumor" removed from her back. Past Anesthesia/Blood Transfusion Reactions: No Reported Reaction, Motion Sickness Additional Past Anesthesia/Blood Transfusion Reaction / Comment(s): Pt has never recieved blood. SON "CODED" POST HIP REPLACEMENT Past Psychological History: Anxiety Additional Psychological History / Comment(s): Pt lives alone. 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 She uses no assistive devices or home care. She drives. Smoking Status: Never smoker Past Alcohol Use History: None Reported Additional Past Alcohol Use History / Comment(s): Pt states she smoked for about 52 yrs 1 ppd and eventually up to 1 /2 ppd but quit in 2008. Past Drug Use History: None Reported - Past Family History Father Family Medical History: Myocardial Infarction ([place]) Additional Family Medical History / Comment(s): Father of a [place] at age 76yrs. Mother Family Medical History: CVA/TIA Additional Family Medical History / Comment(s): Mother had a CVA at age 88yrs. She at age 92yrs. Medications and Allergies Home Medications Medication Instructions Recorded Confirmed Type metFORMIN HCL [Glucophage] 500 mg PO BID 07/02/15 10/20/20 History Aspirin 81 mg PO DAILY #1 chewable 07/04/15 10/20/20 Rx Cholecalciferol [Vitamin D3 (25 2,000 unit PO DAILY #0 07/15/15 10/20/20 History Mcg = 1000 Iu)] Cinnamon Bark [Cinnamon] 500 mg PO BID 07/15/15 10/20/20 History Vits A,C,E/Lutein/Minerals 1 tab PO BID 07/15/15 10/20/20 History [Ocuvite with Lutein Tablet] Acetaminophen Tab [Tylenol] 650 mg PO Q6H PRN 04/05/17 10/20/20 History Atorvastatin [Lipitor] 40 mg PO HS 04/05/17 10/20/20 History lisinopriL [Zestril] 20 mg PO HS 04/14/17 10/20/20 History Rivaroxaban [Xarelto] 20 mg PO AC-SUPPER 01/22/19 10/20/20 History Ferrous Sulfate [Iron (65 MG 325 mg PO Q48H 09/10/19 10/20/20 History Elemental)] Omeprazole 20 mg PO HS 09/10/19 10/20/20 History Nystatin/Triamcin Cream [Mycolog 1 applic TOPICAL BID 05/28/20 10/20/20 History 100,000-0.1 Unit/gm-% Cream] diphenhydrAMINE [Benadryl] 25 mg PO QID PRN #20 capsule 05/30/20 10/20/20 Rx Metoprolol Tartrate [Lopressor] 50 mg PO BID 10/20/20 10/20/20 History Ranolazine [Ranexa] 500 mg PO Q12HR PRN 10/20/20 10/20/20 History hydrALAZINE HCL [Apresoline] 50 mg PO AC-TID #0 10/21/20 10/20/20 Rx Allergies Allergy/AdvReac Type Severity Reaction Status Date / Time amlodipine Allergy Anaphylaxis Verified 10/20/20 19:18 isosorbide mononitrate Allergy Rash/Hives Verified 10/20/20 19:18 [From Imdur] Physical Exam Vitals: Vital Signs Temp Pulse Pulse Pulse Pulse Pulse Resp 10/21/20 07:52 10/21/20 07:50 98.4 F 84 92 75 20 10/21/20 06:47 10/21/20 03:00 96.1 F L 95 16 10/20/20 21:23 96.1 F L 63 16 10/20/20 20:35 98.0 F 64 18 10/20/20 20:00 63 18 10/20/20 18:39 71 18 10/20/20 17:35 98 F 73 18 BP BP BP BP BP BP BP 10/21/20 07:52 10/21/20 07:50 118/61 118/67 104/54 99/54 10/21/20 06:47 138/63 10/21/20 03:00 110/54 10/20/20 21:23 186/71 10/20/20 20:35 144/64 10/20/20 20:00 10/20/20 18:39 119/75 10/20/20 17:35 155/58 Pulse Ox 10/21/20 07:52 97 10/21/20 07:50 95 10/21/20 06:47 10/21/20 03:00 95 10/20/20 21:23 98 10/20/20 20:35 98 10/20/20 20:00 10/20/20 18:39 98 10/20/20 17:35 99 Intake and Output 10/20/20 10/21/20 10/21/20 22:59 06:59 14:59 Other: Voiding Method Toilet # Voids 1 1 Weight 64.41 kg Results CBC & Chem 7: 10/21/20 07:22 10/21/20 07:22 Labs: Abnormal Lab Results - Last 24 Hours (Table) 10/20/20 10/20/20 10/20/20 Range/Units 18:08 18:08 18:08 WBC 11.7 H (3.8-10.6) k/uL RBC (3.80-5.40) m/uL Hgb 10.6 L (11.4-16.0) gm/dL Hct 33.0 L (34.0-46.0) % RDW (11.5-15.5) % Plt Count 462 H (150-450) k/uL Neutrophils # 9.3 H (1.3-7.7) k/uL Monocytes # (0-1.0) k/uL Sodium 136 L (137-145) mmol/L BUN 25 H (7-17) mg/dL Glucose 172 H (74-99) mg/dL POC Glucose (mg/dL) (75-99) mg/dL Urine Appearance Cloudy H (Clear) Urine Nitrite Positive H (Negative) Ur Leukocyte Esterase Moderate H (Negative) Urine WBC 22 H (0-5) /hpf Ur Squamous Epith Cells 5 H (0-4) /hpf Urine Bacteria Moderate H (None) /hpf Hyaline Casts 6 H (0-2) /lpf Urine Mucus Rare H (None) /hpf Urine Yeast (Budding) Occasional H (None) /hpf 10/20/20 10/21/20 10/21/20 Range/Units 18:18 06:44 07:22 WBC 11.3 H (3.8-10.6) k/uL RBC 3.68 L (3.80-5.40) m/uL Hgb 9.8 L (11.4-16.0) gm/dL Hct 29.7 L (34.0-46.0) % RDW 15.8 H (11.5-15.5) % Plt Count (150-450) k/uL Neutrophils # (1.3-7.7) k/uL Monocytes # 1.2 H (0-1.0) k/uL Sodium (137-145) mmol/L BUN (7-17) mg/dL Glucose (74-99) mg/dL POC Glucose (mg/dL) 150 H 108 H (75-99) mg/dL Urine Appearance (Clear) Urine Nitrite (Negative) Ur Leukocyte Esterase (Negative) Urine WBC (0-5) /hpf Ur Squamous Epith Cells (0-4) /hpf Urine Bacteria (None) /hpf Hyaline Casts (0-2) /lpf Urine Mucus (None) /hpf Urine Yeast (Budding) (None) /hpf 10/21/20 Range/Units 07:22 WBC (3.8-10.6) k/uL RBC (3.80-5.40) m/uL Hgb (11.4-16.0) gm/dL Hct (34.0-46.0) % RDW (11.5-15.5) % Plt Count (150-450) k/uL Neutrophils # (1.3-7.7) k/uL Monocytes # (0-1.0) k/uL Sodium (137-145) mmol/L BUN 25 H (7-17) mg/dL Glucose 113 H (74-99) mg/dL POC Glucose (mg/dL) (75-99) mg/dL Urine Appearance (Clear) Urine Nitrite (Negative) Ur Leukocyte Esterase (Negative) Urine WBC (0-5) /hpf Ur Squamous Epith Cells (0-4) /hpf Urine Bacteria (None) /hpf Hyaline Casts (0-2) /lpf Urine Mucus (None) /hpf Urine Yeast (Budding) (None) /hpf Thrombosis Risk Factor Assmnt - Choose All That Apply Each Risk Factor Represents 3 Points: Age 75 years or older Thrombosis Risk Factor Assessment Total Risk Factor Score: 3 Thrombosis Risk Factor Assessment Level: Moderate Risk
--- NOTE | 2020-10-21 22:40 | P.DS ---
Providers Date of admission: 10/20/20 20:06 Expected date of discharge: 10/21/20 Attending physician: Rojas Ronquillo Consults: 10/20/20 20:05 Consult Physician Urgent Consulting Provider: Parul Garcia Consult Reason/Comments: syncope Do you want consulting provider notified?: Yes Primary care physician: Gen Palma [facility] Course: Chief Complaint: syncope History of presenting complaint: This is a very pleasant 80-year-old patient of Dr. Palma. Chronic stable medical conditions include colonic diverticulosis, atrial fibrillation, diabetes, hypertension, hyperlipidemia, osteoarthritis, hiatal hernia. 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 No chest pain or palpitation. Decided to go to her bedroom and then she passed out on the bed. She thinks it maybe for 30 seconds. Does not tongue biting or shaking or incontinence. No chest pain no fever no chills. Mounds back to normal self. Patient doesn't think she was dehydrated. patient felt to have vasovagal syncope. The contribution from relative hypotension. Patient dose of hydralazine is being cutback.hydrochlorothiazide discontinued. No arrhythmia was noted. Care was discussed with the patient. consultation: Cardiology associates Physical examination: VITAL SIGNS: 98.4, 84, 104/54, 95% room air GENERAL: BMI 27.7, laying in bed, comfortable. EYES: [Pupils equal. Conjunctiva jacob]l. HEENT: [External appearance of nose and ears normal, oral cavity grossly normal]. NECK: [JVD not raised; masses not palpable]. HEART: [First and second heart sounds are normal; no edema]. LUNGS:[ Respiratory rate normal; clear to auscultation]. ABDOMEN: [Soft, nontender, liver spleen not palpable, no masses palpable]. PSYCH: [Alert and oriented x3; mood and affect jacob]l. MUSCULAR skeletal: Evidence of OA INVESTIGATIONS, reviewed in the clinical context: White count 11.7 hemoglobin 10.6 platelets 462 potassium 4.8 bun 25 creatinine 1.01 Troponin I 3 negative UA-contaminated sample EKG tracing personally reviewed by me-normal sinus rhythm Chest x-ray film personally reviewed by me-no obvious infiltrate Carotid Doppler no significant stenosis Assessment: -This is a patient who was working in the kitchen and suddenly felt dizzy [place] prodrome and MrYobani Romanor from a 30 seconds. Denied have any other cardiac symptoms or neurological symptoms. Most likely vasovagal. It may be noted that patient's blood pressures actually running on the lower side. Patient not orthostatic. Patient has a recorded blood pressure this morning of 99 systolic.felt to be vasovagal syncope. -Colonic diverticulosis -Paroxysmal atrial fibrillation currently in sinus rhythm -Diabetes mellitus type 2 -Essential hypertension -Hyperlipidemia -Primary osteoarthritis -Hiatal hernia disposition: Home Patient Condition at Discharge: Stable Plan - Discharge Summary New Discharge Prescriptions: Continue metFORMIN HCL [Glucophage] 500 mg PO BID Aspirin 81 mg PO DAILY #1 chewable Vits A,C,E/Lutein/Minerals [Ocuvite with Lutein Tablet] 1 tab PO BID Cinnamon Bark [Cinnamon] 500 mg PO BID Cholecalciferol [Vitamin D3 (25 Mcg = 1000 Iu)] 2,000 unit PO DAILY #0 Atorvastatin [Lipitor] 40 mg PO HS Acetaminophen Tab [Tylenol] 650 mg PO Q6H PRN PRN Reason: Pain lisinopriL [Zestril] 20 mg PO HS Rivaroxaban [Xarelto] 20 mg PO AC-SUPPER Omeprazole 20 mg PO HS Ferrous Sulfate [Iron (65 MG Elemental)] 325 mg PO Q48H Nystatin/Triamcin Cream [Mycolog 100,000-0.1 Unit/gm-% Cream] 1 applic TOPICAL BID diphenhydrAMINE [Benadryl] 25 mg PO QID PRN #20 capsule PRN Reason: itching Metoprolol Tartrate [Lopressor] 50 mg PO BID Ranolazine [Ranexa] 500 mg PO Q12HR PRN PRN Reason: a-fib Changed hydrALAZINE HCL [Apresoline] 50 mg PO AC-TID #0 Discontinued hydroCHLOROthiazide [Hydrodiuril] 25 mg PO DAILY Discharge Medication List metFORMIN HCL [Glucophage] 500 mg PO BID 07/02/15 [History] Aspirin 81 mg PO DAILY #1 chewable 07/04/15 [Rx] Cholecalciferol [Vitamin D3 (25 Mcg = 1000 Iu)] 2,000 unit PO DAILY #0 07/15/15 [History] Cinnamon Bark [Cinnamon] 500 mg PO BID 07/15/15 [History] Vits A,C,E/Lutein/Minerals [Ocuvite with Lutein Tablet] 1 tab PO BID 07/15/15 [History] Acetaminophen Tab [Tylenol] 650 mg PO Q6H PRN 04/05/17 [History] Atorvastatin [Lipitor] 40 mg PO HS 04/05/17 [History] lisinopriL [Zestril] 20 mg PO HS 04/14/17 [History] Rivaroxaban [Xarelto] 20 mg PO AC-SUPPER 01/22/19 [History] Ferrous Sulfate [Iron (65 MG Elemental)] 325 mg PO Q48H 09/10/19 [History] Omeprazole 20 mg PO HS 09/10/19 [History] Nystatin/Triamcin Cream [Mycolog 100,000-0.1 Unit/gm-% Cream] 1 applic TOPICAL BID 05/28/20 [History] diphenhydrAMINE [Benadryl] 25 mg PO QID PRN #20 capsule 05/30/20 [Rx] Metoprolol Tartrate [Lopressor] 50 mg PO BID 10/20/20 [History] Ranolazine [Ranexa] 500 mg PO Q12HR PRN 10/20/20 [History] hydrALAZINE HCL [Apresoline] 50 mg PO AC-TID #0 10/21/20 [Rx] Follow up Appointment(s)/Referral(s): Gen Palma MD [Primary Care Provider] - 10/23/20 3:15 pm Kevin Carias MD [STAFF PHYSICIAN] - 11/26/20 3:45 pm Patient Instructions/Handouts: Syncope (DC) Discharge Disposition: HOME SELF-CARE
== END 2020-10-21 14:20 | disposition home or self-care (01) ==
LOC: EC 17:26 → 1SOBS 20:06
PROVIDERS: ADMIT Hospitalist; ATTEND Hospitalist
DX: R55 Syncope and collapse (principal); K57.30 Diverticulosis of large intestine without perforation or abscess without bleeding; E11.9 Type 2 diabetes mellitus without complications; I10 Essential (primary) hypertension; E78.5 Hyperlipidemia, unspecified; F41.9 Anxiety disorder, unspecified; M19.91 Primary osteoarthritis, unspecified site; K44.9 Diaphragmatic hernia without obstruction or gangrene; I25.10 Atherosclerotic heart disease of native coronary artery without angina pectoris; I44.0 Atrioventricular block, first degree; M81.0 Age-related osteoporosis without current pathological fracture; Z85.41 Personal history of malignant neoplasm of cervix uteri; Z87.891 Personal history of nicotine dependence; Z86.73 Personal history of transient ischemic attack (TIA), and cerebral infarction without residual deficits; K21.9 Gastro-esophageal reflux disease without esophagitis; Z90.710 Acquired absence of both cervix and uterus; Z98.890 Other specified postprocedural states; Z82.49 Family history of ischemic heart disease and other diseases of the circulatory system; Z82.3 Family history of stroke; Z79.01 Long term (current) use of anticoagulants; Z79.84 Long term (current) use of oral hypoglycemic drugs; Z79.82 Long term (current) use of aspirin; Z79.899 Other long term (current) drug therapy; Z88.8 Allergy status to other drugs, medicaments and biological substances
CPT/HCPCS: 96374; 99285; 36415; 94760; 93005; 85379; 80053 ×2; 83735; 84484 ×2; 85025 ×2; 85610; 85730; 81001; 83036; 71046; 93880; G0378 ×2; C9113

== ENCOUNTER → 2020-11-03 | Outpatient (CLI) | payer MEDICARE, BC ==
--- NOTE | 2020-11-03 14:52 | NM ---
EXAMINATION TYPE: NM bone scan whole body DATE OF EXAM: 11/03/2020 COMPARISON: NONE HISTORY: Pain Delayed whole-body scanning was performed following the injection of 23.3 mCi Tc 99m MDP. Images acq uired 3 hours post injection. FINDINGS: There is abnormal uptake involving the mid and lower cervical spine, upper and mid thoracic spine, an d lower lumbar spine which likely is nonspecific but likely degenerative. No additional areas of increased or reduced abnormal uptake. IMPRESSION: 1. Abnormal uptake throughout the vertebral column as discussed above. Degenerative disc disease is t he most likely etiology x-ray correlation suggested.
== END | disposition home or self-care (01) ==
LOC: RADNMMAIN 10:11
PROVIDERS: ATTEND Physical Medicine & Rehabilitation
DX: M54.6 Pain in thoracic spine (principal); M47.814 Spondylosis without myelopathy or radiculopathy, thoracic region
CPT/HCPCS: 78306; A9503

== ENCOUNTER → 2020-12-21 | Outpatient (CLI) | payer MEDICARE, BC ==
--- NOTE | 2020-12-21 16:26 | CT ---
EXAMINATION TYPE: CT soft tissue neck w con DATE OF EXAM: 12/21/2020 HISTORY: Sore throat. COMPARISON: CT neck October 28, 2011 CT DLP: 351.4 mGycm. Automated Exposure Control for Dose Reduction was Utilized. TECHNIQUE: CT scan of the neck is performed with IV Contrast, patient injected with 100 mL of Isovue M300, axial images are obtained, coronal and sagittal reformatted images are reviewed. FINDINGS: Airway: Calcified right hilar lymph nodes consistent with product of old granulomatous disease. Airwa y remains patent. Slight asymmetry with nonvisualization of the left piriform sinus. Asymmetric incre ased left aryepiglottic fold thickening noted. Finding new from 2012 study. Follow-up direct visual ization is advised. Parotid/submandibular glands: No gross abnormality seen. Carotid/Vascular Structures: Moderate calcified plaque bilateral carotid bulbs. No significant stenos is. Moderate to severe calcified plaque distal internal carotid arteries bilaterally without signific ant stenosis. Osseous Structures: Moderate disc space narrowing C6-C7 level. Underlying dextroconvex scoliotic curv ature or positioning. Multilevel uncovertebral facet degenerative changes throughout the cervical spi ne . Other: No definitive greater than 1 cm neck adenopathy. IMPRESSION: Asymmetric thickening to the left aryepiglottic fold. Cannot exclude neoplasm at this lev el. Consider direct visualization and/or PET/CT to further evaluate.
== END | disposition home or self-care (01) ==
LOC: RADCTMAIN 12:19
PROVIDERS: ATTEND Otolaryngology
DX: J38.7 Other diseases of larynx (principal)
CPT/HCPCS: 82565; 84520; 70491; 36415; Q9967

== ENCOUNTER → 2021-01-15 | Outpatient (CLI) | payer MEDICARE, BC ==
--- NOTE | 2021-01-21 15:52 | PE ---
EXAMINATION TYPE: PET CT fusion skull to thigh DATE OF EXAM: 01/15/2021 CLINICAL HISTORY: 80-year-old female C76.0, head and neck cancer, initial staging. TECHNIQUE: Following the intravenous administration of 12.53 mCi of F-18 FDG, coned-down images of the neck were obtained followed by whole body images from the skull base to the midthigh. Images are reviewed on the computer in the coronal, axial, and sagittal planes. Reconstructed rotating images are created on independent workstation and reviewed on the computer. A localization and attenuation correction CT is performed in conjunction with the PET scan. Glucose level: 108 mg/dL Injection site: Right hand COMPARISON: CT 12/21/2020 and abdomen/pelvis CT 09/21/2019. FINDINGS: PET: There is focal moderate uptake centered at the right posterior paraspinal musculature in the upper ne ck near the base of the skull, maximum SUV 4.3. No CT abnormality is evident. Finding suggests focal muscular uptake. Asymmetric thickening of the left aryepiglottic fold corresponds to mild uptake, max SUV 2.9, likely due to very small size of underlying neoplasm. Otherwise, physiologic FDG uptake within the neck without evidence for lymphadenopathy. A borderline to mildly enlarged 1.2 cm precarinal lymph node shows no discrete FDG uptake. Physiologi c FDG uptake within the chest. Average liver SUV 2.1. Segmental areas of moderate to intense uptake throughout the colon likely physiologic muscular uptake . Otherwise, physiologic FDG uptake within the abdomen and pelvis. ATTENUATION CORRECTION CT: Visualized intracranial structures show prostatic calcifications in the carotid siphons. Visualized o rbits and globes, paranasal sinuses, and mastoid air cells appear clear. The orotracheal cough is tina ar. Atherosclerotic calcifications within the bilateral carotid bifurcations. No cervical lymphadenop athy seen. Heart borderline enlarged. Dense mitral annular calcifications are present. LAD and circumflex massey ry artery calcifications. Moderate episodic calcifications throughout the thoracic aorta. Ascending t horacic aorta overlying ectatic at 3.6 cm. Calcified right hilar lymph nodes. A few calcified granulo mas in the right lower lobe. Suspect some mild underlying emphysematous change. Hazy dependent atelec tasis. Otherwise, no consolidation or pleural effusion. Calcified granulomas within both the liver and spleen. 1.8 cm left hepatic lobe cyst. Mild low densit y thickening of the bilateral adrenal glands. 1.4 cm lateral upper pole left renal cyst redemonstrate d. An additional smaller cyst is present just below. Nonobstructive 4 mm left renal calculus. 4.0 cm diverticulum of the third portion of the duodenum projecting superiorly. Moderate atherosclerotic araceli cifications throughout the abdominal aorta and iliac arteries. Changes may result in a severe atelect atic narrowing of the proximal left common iliac artery.. No dilated small bowel, free fluid, or free air. No mesenteric or retroperitoneal lymph adenopathy. Mild stool burden. Normal appendix. Left-stanford ed colonic diverticulosis, fairly severe in the sigmoid colon. Bladder partially distended. Uterus surgically absent. Both ovaries are visualized. Small pelvic phle bolith. No abnormal fluid collection in the pelvis or pelvic lymphadenopathy. Bones: Mild degenerative change at the hips. Hypertrophic facet arthropathy lower lumbar spine with g rade 1 anterolisthesis L4-L5. Anterior endplate spondylosis lower thoracic spine. IMPRESSION: 1. Asymmetric thickening of the left aryepiglottic fold redemonstrated. This corresponds to only mild uptake. If this is a site of biopsy-proven malignancy, the lack of any significant uptake could be a ttributed to small size. 2. No findings of metastatic disease. Small area of moderate focal uptake involving the right posteri or upper neck paraspinal musculature. The location suggests benign muscular uptake. Mildly enlarged 1 .2 cm precarinal lymph node shows no uptake and is likely reactive. 3. Prominent uptake throughout the colon likely physiologic uptake. 4. Incidental: CAD, dense mitral annular calcifications, prior granulomatous disease, left-sided colo willie diverticulosis, fairly severe in the sigmoid colon.
== END | disposition home or self-care (01) ==
LOC: RADPETMAIN 11:31
PROVIDERS: ATTEND Otolaryngology
DX: C76.0 Malignant neoplasm of head, face and neck (principal)
CPT/HCPCS: 78815; A9552

== ENCOUNTER 2021-02-18 03:34 | Inpatient (IN) | payer MEDICARE, BC ==
--- NOTE | 2021-02-18 03:48 | ED ---
Recheck HPI <Anand Hernandes - Last Filed: 02/18/21 08:36> - General Source: RN notes reviewed, old records reviewed Mode of arrival: ambulatory Limitations: no limitations - History of Present Illness MD Complaint: other (Severe abdominal pain) -: hour(s) Symptoms Since Prior Visit: worsening pain Associated Symptoms: nausea, abdominal pain Treatments Prior to Arrival: Given Pain Meds on <Anand Frias - Last Filed: 02/18/21 23:55> - General Stated Complaint: Abdominal Pain Time Seen by Provider: 02/18/21 03:41 - History of Present Illness Initial Comments: This is an 80-year-old female DF for evaluation of severe abdominal pain epigastric as well as diffuse abdominal pain and tenderness. Mild nausea no vomiting of travel history no sick contacts no fevers. Bowel movement yesterday. Patient is not like she wants to eat and the pain is severe. No prior history of similar complaint. Patient does have history of hysterectomy (Anand Frias) - Related Data Home Medications Medication Instructions Recorded Confirmed metFORMIN HCL [Glucophage] 500 mg PO BID 07/02/15 02/18/21 Cinnamon Bark [Cinnamon] 500 mg PO BID 07/15/15 02/18/21 Vits A,C,E/Lutein/Minerals 1 tab PO BID 07/15/15 02/18/21 [Ocuvite with Lutein Tablet] Atorvastatin [Lipitor] 40 mg PO HS 04/05/17 02/18/21 lisinopriL [Zestril] 20 mg PO HS 04/14/17 02/18/21 Rivaroxaban [Xarelto] 20 mg PO AC-SUPPER 01/22/19 02/18/21 Omeprazole 20 mg PO HS 09/10/19 02/18/21 Metoprolol Tartrate [Lopressor] 50 mg PO BID 10/20/20 02/18/21 Cholecalciferol [Vitamin D3 (25 50 mcg PO DAILY 02/18/21 02/18/21 Mcg = 1000 Iu)] Previous Rx's Medication Instructions Recorded Aspirin 81 mg PO DAILY #1 chewable 07/04/15 hydrALAZINE HCL [Apresoline] 50 mg PO AC-TID #0 10/21/20 Allergies Allergy/AdvReac Type Severity Reaction Status Date / Time amlodipine Allergy Anaphylaxis Verified 02/18/21 08:33 isosorbide mononitrate Allergy Rash/Hives Verified 02/18/21 08:33 [From Imdur] Review of Systems ROS Other: All systems not noted in ROS Statement are negative. <Anand Hernandes - Last Filed: 02/18/21 08:36> ROS Other: All systems not noted in ROS Statement are negative. <Anand Frias - Last Filed: 02/18/21 23:55> ROS Statement: Those systems with pertinent positive or pertinent negative responses have been documented in the HPI. Past Medical History Past Medical History: Atrial Fibrillation, Cancer, CVA/TIA, Diabetes Mellitus, GERD/Reflux, Hyperlipidemia, Hypertension, Osteoarthritis (OA), Syncope Additional Past Medical History / Comment(s): OSteoporosis, hiatal hernia, diverticulosis, polyps, cervical cancer, DJD, History of Any Multi-Drug Resistant Organisms: None Reported Past Surgical History: Back Surgery, Heart Catheterization, Hysterectomy Additional Past Surgical History / Comment(s): EGD, Colonoscopy, bilateral cataract removed, "fatty tumor" removed from her back. Past Anesthesia/Blood Transfusion Reactions: No Reported Reaction, Motion Sickness Additional Past Anesthesia/Blood Transfusion Reaction / Comment(s): Pt has never recieved blood. SON "CODED" POST HIP REPLACEMENT Past Psychological History: Anxiety Additional Psychological History / Comment(s): Pt lives alone. 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 She uses no assistive devices or home care. She drives. Smoking Status: Never smoker Past Alcohol Use History: None Reported Additional Past Alcohol Use History / Comment(s): Pt states she smoked for about 52 yrs 1 ppd and eventually up to 1 1/2 ppd but quit in 2008. Past Drug Use History: None Reported - Past Family History Father Family Medical History: Myocardial Infarction (OK) Additional Family Medical History / Comment(s): Father of a OK at age 76yrs. Mother Family Medical History: CVA/TIA Additional Family Medical History / Comment(s): Mother had a CVA at age 88yrs. She at age 92yrs. <Anand Frias - Last Filed: 02/18/21 23:55> General Exam General appearance: alert, in no apparent distress, anxious Head exam: Present: atraumatic, normocephalic, normal inspection Eye exam: Present: normal appearance, PERRL, EOMI. Absent: scleral icterus, conjunctival injection, periorbital swelling ENT exam: Present: normal exam, mucous membranes moist Neck exam: Present: normal inspection. Absent: tenderness, meningismus, lymphadenopathy Respiratory exam: Present: normal lung sounds bilaterally. Absent: respiratory distress, wheezes, rales, rhonchi, stridor Cardiovascular Exam: Present: regular rate, normal rhythm, normal heart sounds. Absent: systolic murmur, diastolic murmur, rubs, gallop, clicks GI/Abdominal exam: Present: soft, tenderness, normal bowel sounds. Absent: distended, guarding, rebound, rigid Extremities exam: Present: normal inspection, full ROM, normal capillary refill. Absent: tenderness, pedal edema, joint swelling, calf tenderness Back exam: Present: normal inspection Neurological exam: Present: alert, oriented X3, CN II-XII intact Psychiatric exam: Present: normal affect, normal mood Skin exam: Present: warm, dry, intact, normal color. Absent: rash <Anand Frias - Last Filed: 02/18/21 23:55> Course <Anand Frias - Last Filed: 02/18/21 23:55> Vital Signs 02/18/21 02/18/21 02/18/21 03:47 04:43 05:30 Temperature 97.2 F L Pulse Rate 83 72 68 Respiratory 18 16 18 Rate Blood Pressure 197/77 155/67 134/71 O2 Sat by Pulse 94 L 96 96 Oximetry 02/18/21 02/18/21 09:04 10:16 Temperature 98 F Pulse Rate 80 73 Respiratory 18 18 Rate Blood Pressure 155/62 145/51 O2 Sat by Pulse 95 95 Oximetry - Reevaluation(s) Reevaluation #1: Medical record is reviewed Patient reevaluated with symptoms significantly improved Patient informed of results and questions answered (Anand Frias) Medical Decision Making - Lab Data Result diagrams: 02/18/21 04:23 02/18/21 04:23 <Anand Hernandes - Last Filed: 02/18/21 08:36> - Lab Data Result diagrams: 02/18/21 04:23 02/18/21 04:23 <Anand Frias B - Last Filed: 02/18/21 23:55> - Medical Decision Making CT shows partial small bowel obstruction. I spoke with Dr. Ramirez and she accepted the patient. I admitted the patient and had an NG placed and the patient. (Anand Hernandes) - Lab Data Lab Results 02/18/21 02/18/21 02/18/21 Range/Units 04:23 04:23 04:23 WBC 13.7 H (3.8-10.6) k/uL RBC 4.55 (3.80-5.40) m/uL Hgb 11.4 (11.4-16.0) gm/dL Hct 34.9 (34.0-46.0) % MCV 76.7 L (80.0-100.0) fL MCH 25.0 (25.0-35.0) pg MCHC 32.5 (31.0-37.0) g/dL RDW 18.2 H (11.5-15.5) % Plt Count 401 (150-450) k/uL MPV 7.6 Neutrophils % 78 % Lymphocytes % 13 % Monocytes % 6 % Eosinophils % 3 % Basophils % 0 % Neutrophils # 10.7 H (1.3-7.7) k/uL Lymphocytes # 1.7 (1.0-4.8) k/uL Monocytes # 0.8 (0-1.0) k/uL Eosinophils # 0.4 (0-0.7) k/uL Basophils # 0.1 (0-0.2) k/uL Hypochromasia Slight Anisocytosis Slight Microcytosis Slight Sodium 139 (137-145) mmol/L Potassium 4.2 (3.5-5.1) mmol/L Chloride 106 (98-107) mmol/L Carbon Dioxide 23 (22-30) mmol/L Anion Gap 10 mmol/L BUN 19 H (7-17) mg/dL Creatinine 0.78 (0.52-1.04) mg/dL Est GFR (CKD-EPI)AfAm 83 (>60 ml/min/1.73 sqM) Est GFR (CKD-EPI)NonAf 72 (>60 ml/min/1.73 sqM) Glucose 139 H (74-99) mg/dL Plasma Lactic Acid Manolo 1.2 (0.7-2.0) mmol/L Calcium 9.9 (8.4-10.2) mg/dL Total Bilirubin 0.4 (0.2-1.3) mg/dL AST 21 (14-36) U/L ALT 14 (4-34) U/L Alkaline Phosphatase 69 (38-126) U/L Troponin I (0.000-0.034) ng/mL Total Protein 6.6 (6.3-8.2) g/dL Albumin 3.9 (3.5-5.0) g/dL Amylase 66 (30-110) U/L Lipase 102 (23-300) U/L Urine Color Urine Appearance (Clear) Urine pH (5.0-8.0) Ur Specific [place] (1.001-1.035) Urine Protein (Negative) Urine Glucose (UA) (Negative) Urine Ketones (Negative) Urine Blood (Negative) Urine Nitrite (Negative) Urine Bilirubin (Negative) Urine Urobilinogen (<2.0) mg/dL Ur Leukocyte Esterase (Negative) Urine RBC (0-5) /hpf Urine WBC (0-5) /hpf Ur Squamous Epith Cells (0-4) /hpf Urine Mucus (None) /hpf 02/18/21 02/18/21 Range/Units 04:23 05:23 WBC (3.8-10.6) k/uL RBC (3.80-5.40) m/uL Hgb (11.4-16.0) gm/dL Hct (34.0-46.0) % MCV (80.0-100.0) fL MCH (25.0-35.0) pg MCHC (31.0-37.0) g/dL RDW (11.5-15.5) % Plt Count (150-450) k/uL MPV Neutrophils % % Lymphocytes % % Monocytes % % Eosinophils % % Basophils % % Neutrophils # (1.3-7.7) k/uL Lymphocytes # (1.0-4.8) k/uL Monocytes # (0-1.0) k/uL Eosinophils # (0-0.7) k/uL Basophils # (0-0.2) k/uL Hypochromasia Anisocytosis Microcytosis Sodium (137-145) mmol/L Potassium (3.5-5.1) mmol/L Chloride (98-107) mmol/L Carbon Dioxide (22-30) mmol/L Anion Gap mmol/L BUN (7-17) mg/dL Creatinine (0.52-1.04) mg/dL Est GFR (CKD-EPI)AfAm (>60 ml/min/1.73 sqM) Est GFR (CKD-EPI)NonAf (>60 ml/min/1.73 sqM) Glucose (74-99) mg/dL Plasma Lactic Acid Manolo (0.7-2.0) mmol/L Calcium (8.4-10.2) mg/dL Total Bilirubin (0.2-1.3) mg/dL AST (14-36) U/L ALT (4-34) U/L Alkaline Phosphatase (38-126) U/L Troponin I <0.012 (0.000-0.034) ng/mL Total Protein (6.3-8.2) g/dL Albumin (3.5-5.0) g/dL Amylase (30-110) U/L Lipase (23-300) U/L Urine Color Yellow Urine Appearance Clear (Clear) Urine pH 5.5 (5.0-8.0) Ur Specific [place] 1.018 (1.001-1.035) Urine Protein 1+ H (Negative) Urine Glucose (UA) Negative (Negative) Urine Ketones Negative (Negative) Urine Blood Negative (Negative) Urine Nitrite Negative (Negative) Urine Bilirubin Negative (Negative) Urine Urobilinogen <2.0 (<2.0) mg/dL Ur Leukocyte Esterase Moderate H (Negative) Urine RBC 1 (0-5) /hpf Urine WBC 8 H (0-5) /hpf Ur Squamous Epith Cells 3 (0-4) /hpf Urine Mucus Rare H (None) /hpf Disposition Time of Disposition: 08:36 <Anand Hernandes - Last Filed: 02/18/21 08:36> <Anand Frias - Last Filed: 02/18/21 23:55> Clinical Impression: Small bowel obstruction Disposition: ADMITTED IP TO THIS HOSP
[2021-02-18] MEDS ORDERED: SODIUM CHLORIDE 0.9% 1,000 ML IV STA ×2 (04:05→08:34)
[2021-02-18] MEDS ORDERED: PANTOPRAZOLE 40 MG/10 ML VIAL IVP STA (04:05)
[2021-02-18] MEDS ORDERED: MORPHINE SULFATE 4 MG/ML SYRINGE IV STA (04:05)
[2021-02-18] MEDS ORDERED: ONDANSETRON 4 MG/2 ML VIAL IVP STA (04:05)
[2021-02-18 04:33] LABS: Anisocytosis Slight; Basophils # (A) 0.1 k/uL (0-0.2); Basophils % (A) 0 %; Eosinophils # (A) 0.4 k/uL (0-0.7); Eosinophils % (A) 3 %; HCT 34.9 % (34.0-46.0); HGB 11.4 gm/dL (11.4-16.0); Hypochromasia Slight; Lymphocytes # (A) 1.7 k/uL (1.0-4.8); Lymphocytes % (A) 13 %; MCHC 32.5 g/dL (31.0-37.0); MCV 76.7 fL (80.0-100.0); Mean Platelet Volume 7.6; Microcytosis Slight; Monocytes # (A) 0.8 k/uL (0-1.0); Monocytes % (A) 6 %; Neutrophils # (A) 10.7 k/uL (1.3-7.7); Neutrophils % (A) 78 %; Platelet Count 401 k/uL (150-450); RBC 4.55 m/uL (3.80-5.40); RDW 18.2 % (11.5-15.5); WBC 13.7 k/uL (3.8-10.6)
[2021-02-18 04:44] LABS: Albumin 3.9 g/dL (3.5-5.0); Calcium 9.9 mg/dL (8.4-10.2); Potassium 4.2 mmol/L (3.5-5.1); Total Bilirubin 0.4 mg/dL (0.2-1.3); Total Protein 6.6 g/dL (6.3-8.2)
--- NOTE | 2021-02-18 05:38 | XR ---
EXAM: XR Chest, 1 View CLINICAL HISTORY: ITS.REASON XR Reason: abdominal pain TECHNIQUE: Frontal view of the chest. COMPARISON: October 20, 2020 FINDINGS: Lungs: Unremarkable. No consolidation. Pleural space: Unremarkable. No pneumothorax. Heart: Unremarkable. No cardiomegaly. Mediastinum: Unremarkable. Bones/joints: Mild to moderate osteophytosis in the lower thoracic spine. Vasculature: The aortic arch is calcified are nondilated. IMPRESSION: No acute findings in the chest.
--- NOTE | 2021-02-18 05:40 | XR ---
EXAM: XR Abdomen, 1 View CLINICAL HISTORY: ITS.REASON XR Reason: abdominal pain TECHNIQUE: Frontal supine view of the abdomen/pelvis. COMPARISON: No relevant prior studies available. FINDINGS: Gastrointestinal tract: There are gas fluid levels within distended small bowel in the mid to upper abdomen suggesting small bowel obstruction versus severe ileus. Bones/joints: Mild degenerative changes in the lower lumbar spine. IMPRESSION: There are gas fluid levels within distended small bowel in the mid to upper abdomen suggesting small bowel obstruction versus severe ileus.
[2021-02-18 05:45] LABS: Appearance,Urine Clear (Clear); Bilirubin,Urine Negative (Negative); Blood,Urine Negative (Negative); Color,Urine Yellow; Glucose,Urine (UA) Negative (Negative); Ketones,Urine Negative (Negative); Leukocyte Esterase,Urine Moderate (Negative); Mucus,Urine Rare /hpf; Nitrite,Urine Negative (Negative); PH, Urine 5.5 (5.0-8.0); Protein,Urine 1+ (Negative); RBC,Urine 1 /hpf (0-5); Specific Gravity,Urine 1.018 (1.001-1.035); Squamous Epithelial Cell,Urine 3 /hpf (0-4); Urobilinogen,Urine <2.0 mg/dL (<2.0); WBC,Urine 8 /hpf (0-5)
--- NOTE | 2021-02-18 07:05 | CT ---
EXAMINATION TYPE: CT abdomen pelvis w con DATE OF EXAM: 02/18/2021 HISTORY: Abdominal pain with history of diverticulosis, history of throat cancer CT DLP: 892.2mGycm Automated Exposure Control for Dose Reduction was Utilized. CONTRAST: CT scan of the abdomen and pelvis is performed without oral but with IV Contrast, patient injected wi th 100 ml mL of Isovue 300. COMPARISON: CT abdomen and pelvis September 21, 2019 FINDINGS: LUNG BASES: Dense calcification at level of mitral valve. Additional calcification at level of aortic valve. Dependent and linear atelectasis in both bases. There is 9 mm posterior calcified nodule or g ranuloma right lung base axial image 8. LIVER/GB: Scattered punctate calcifications throughout the liver redemonstrated. There is 1.7 cm thin -walled cyst in the left hepatic lobe redemonstrated PANCREAS: No significant abnormality is seen. SPLEEN: Scattered punctate calcifications throughout the spleen redemonstrated. Liver and spleen find ings consistent with product of old granulomatous disease. ADRENALS: No significant abnormality is seen. KIDNEYS: Symmetric cortical medullary uptake and excretion without hydronephrosis seen bilaterally. S cattered small simple appearing thin-walled cysts bilaterally are noted. BOWEL: Stomach shows mild distention. There is 3.4 cm duodenal diverticulum along mesenteric surface second portion coronal image 42. Duodenal sweep is not suspiciously dilated. Jejunal loops left abdom en show no significant dilatation. There is however gradual transition to prominent and then dilated fluid-filled small bowel ileal loops in the right abdomen. Several air fluid levels are seen. Small b owel loops measure up to 3.2 cm in diameter. Small bowel feces sign is seen in the pelvis with transi tion point noted anterior to the superior aspect of bladder on coronal image 38 is there is nondilate d distal small bowel loop with moderate concentric wall thickening. There is nondilated distal bowel with mild to moderate concentric wall thickening extending to level of the terminal ileum. Fecal mate rial is seen in nondistended colon. Colonic diverticula are seen with most prominent diverticulosis i nvolving the left and sigmoid colon. Normal-appearing appendix from cecum incidentally noted. UTERUS/ADNEXA: Uterus surgically absent or markedly atrophic. Small amount free fluid in pelvis. LYMPH NODES: No greater than 1cm abdominal or pelvic lymph nodes are appreciated. OSSEOUS STRUCTURES: Mild disc space narrowing L4-L5 level. Mild to moderate anterior and lateral spur ring. OTHER: Moderate to severe calcified plaque of the aorta extends into branch vessels. IMPRESSION: There is developing or more likely partial distal small bowel obstruction felt to be on b asis of fairly moderate length segment distal acute enteritis involving distal ileum through terminal ileum. Differential includes an infectious and/or inflammatory etiologies. Progress study advised.
[2021-02-18] MEDS ORDERED: NALOXONE 0.4 MG/ML 1 ML VIAL IV PRN (08:28)
[2021-02-18] MEDS ORDERED: ACETAMINOPHEN TAB 325 MG TAB PO PRN (08:28)
[2021-02-18] MEDS: MORPHINE SULFATE 4 MG/ML SYRINGE IV PRN (08:46)
--- NOTE | 2021-02-18 09:44 | XR ---
EXAMINATION TYPE: XR chest 1V portable DATE OF EXAM: 02/18/2021 CLINICAL HISTORY: NG tube placement. TECHNIQUE: Portable frontal view of the chest. COMPARISON: 02/18/2021 at 4:45 AM FINDINGS: There is an enteric tube with the distal tip and side-port overlying the left upper quadra nt over the gastric fundus. Low lung volumes with elevation of the right hemidiaphragm. The cardiomed iastinal silhouette is within normal limits for size. Pulmonary vasculature is normal. There is no fo araceli air space opacity. No pleural effusion. No pneumothorax seen. No acute displaced osseous fractur e. IMPRESSION: Enteric tube distal tip and side-port overlie the gastric fundus.
[2021-02-18] MEDS: ONDANSETRON 4 MG/2 ML VIAL IVP PRN (10:57)
[2021-02-18 12:04] LABS: Glucose,Whole Blood 153 mg/dL (75-99)
[2021-02-18] MEDS: MORPHINE SULFATE 2 MG/ML SYRINGE IV PRN ×2 (13:14→23:53)
--- NOTE | 2021-02-18 13:40 | P.GSCN ---
History of Present Illness Consult date: 02/18/21 History of present illness: CHIEF COMPLAINT: Abdominal pain HISTORY OF PRESENT ILLNESS: This is a 80-year-old female with a known history of prior bowel obstruction about 2 years ago that was treated conservatively. She also has a history of atrial fibrillation anticoagulated with Xarelto, diabetes mellitus, CVA, hiatal hernia, diverticulosis and cervical cancer. Surgical history did include hysterectomy. Patient presents to emergency room with complaints of diffuse abdominal pain that started suddenly around 11:00 yesterday evening. She also has been having nausea and vomiting. Her last bowel movement was yesterday morning and she reports it is normal. However since then she has had no bowel movements and has stopped passing gas. She had a computed tomography scan of the abdomen and pelvis that shows developing or more likely a partial distal small bowel obstruction felt to be on the basis of fairly moderate length segment distal acute enteritis involving distal ileum through terminal ileum. Patient denies any fever chills or sweats. Patient to the hospital for partial small bowel obstruction. NG tube in place. PAST MEDICAL HISTORY: See list. PAST SURGICAL HISTORY: See list. MEDICATIONS: See list. ALLERGIES: See list. SOCIAL HISTORY: No illicit drug use. REVIEW OF SYSTEMS: CONSTITUTIONAL: Denies fever or chills. HEENT: Denies blurred vision, vision changes, or eye pain. Denies hemoptysis CARDIOVASCULAR: Denies chest pain or pressure. RESPIRATORY: No shortness of breath. GASTROINTESTINAL: See HPI for pertinent findings HEMATOLOGIC: Denies bleeding disorders. GENITOURINARY: Denies any blood in urine or increased urinary frequency. SKIN: Denies pruitis. Denies rash. PHYSICAL EXAM: VITAL SIGNS: Reviewed GENERAL: Well-developed in no acute distress. HEENT: No sclera icterus. Extraocular movements grossly intact. Moist buccal mucosa. Head is atraumatic, normocephalic. No nasal drainage. ABDOMEN: Soft. Distended with diffuse tenderness NEUROLOGIC: Alert and oriented. Cranial nerves II through XII grossly intact. LABORATORY DATA: WBC 13.7 hemoglobin 11.4 BUN 19 creatinine 0.78 lactic 1.2 IMAGING: computed tomography scan of the abdomen and pelvis that shows developing or more likely a partial distal small bowel obstruction felt to be on the basis of fairly moderate length segment. Distal acute enteritis involving distal ileum through terminal ileum. ASSESSMENT: 1. Partial distal small bowel obstruction affecting a moderate length segment of bowel PLAN: -Patient scheduled for small bowel resection tomorrow, 02/19/[address] kumar -Continue NG tube for decompression -Continue to hold Xarelto -Keep patient nothing by mouth -Continue IV fluids -Continue pain medication as needed Thank you for this consultation [employer] note has been reviewed by physician. Signing provider agrees with the documented findings, assessment, and plan of care. Past Medical History Past Medical History: Atrial Fibrillation, Cancer, CVA/TIA, Diabetes Mellitus, GERD/Reflux, Hyperlipidemia, Hypertension, Osteoarthritis (OA), Syncope Additional Past Medical History / Comment(s): NIDDM type II, CVA with no residual, cervical cancer with hysterectomy, hiatal hernia, benign colon polyps, several UTIs, osteoporosis, DJD History of Any Multi-Drug Resistant Organisms: None Reported Past Surgical History: Back Surgery, Heart Catheterization, Hysterectomy Additional Past Surgical History / Comment(s): Lumbar laminectomy decompression and discectomy, fatty tumor removed from back, EGD, colonoscopies, loop recorder since removed, bilateral cataracts removed. Past Anesthesia/Blood Transfusion Reactions: No Reported Reaction Additional Past Anesthesia/Blood Transfusion Reaction / Comm: Pt has never recieved blood. SON "CODED" POST HIP REPLACEMENT Past Psychological History: Anxiety Additional Psychological History / Comment(s): Pt lives alone. 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 She uses no assistive devices or home care. She drives. Smoking Status: Former smoker Past Alcohol Use History: None Reported Additional Past Alcohol Use History / Comment(s): Pt states she smoked for about 52 yrs 1 ppd and eventually up to 1 1/2 ppd but quit in 2008. Past Drug Use History: None Reported - Past Family History Father Family Medical History: Myocardial Infarction ([place]) Additional Family Medical History / Comment(s): Father of a [place] at age 76yrs. Mother Family Medical History: CVA/TIA Additional Family Medical History / Comment(s): Mother had a CVA at age 88yrs. She at age 92yrs. Medications and Allergies Home Medications Medication Instructions Recorded Confirmed Type metFORMIN HCL [Glucophage] 500 mg PO BID 07/02/15 02/18/21 History Aspirin 81 mg PO DAILY #1 chewable 07/04/15 02/18/21 Rx Cinnamon Bark [Cinnamon] 500 mg PO BID 07/15/15 02/18/21 History Vits A,C,E/Lutein/Minerals 1 tab PO BID 07/15/15 02/18/21 History [Ocuvite with Lutein Tablet] Atorvastatin [Lipitor] 40 mg PO HS 04/05/17 02/18/21 History lisinopriL [Zestril] 20 mg PO HS 04/14/17 02/18/21 History Rivaroxaban [Xarelto] 20 mg PO AC-SUPPER 01/22/19 02/18/21 History Omeprazole 20 mg PO HS 09/10/19 02/18/21 History Metoprolol Tartrate [Lopressor] 50 mg PO BID 10/20/20 02/18/21 History hydrALAZINE HCL [Apresoline] 50 mg PO AC-TID #0 10/21/20 02/18/21 Rx Cholecalciferol [Vitamin D3 (25 50 mcg PO DAILY 02/18/21 02/18/21 History Mcg = 1000 Iu)] Allergies Allergy/AdvReac Type Severity Reaction Status Date / Time amlodipine Allergy Anaphylaxis Verified 02/18/21 08:33 isosorbide mononitrate Allergy Rash/Hives Verified 02/18/21 08:33 [facility] Surgical - Exam Vital Signs Temp Pulse Resp BP Pulse Ox 97.2 F L 83 18 197/77 94 L 02/18/21 03:47 02/18/21 03:47 02/18/21 03:47 02/18/21 03:47 02/18/21 03:47 Results - Labs 02/18/21 04:23 02/18/21 04:23 Abnormal Lab Results - Last 24 Hours (Table) 02/18/21 02/18/21 02/18/21 Range/Units 04:23 04:23 05:23 WBC 13.7 H (3.8-10.6) k/uL MCV 76.7 L (80.0-100.0) fL RDW 18.2 H (11.5-15.5) % Neutrophils # 10.7 H (1.3-7.7) k/uL BUN 19 H (7-17) mg/dL Glucose 139 H (74-99) mg/dL POC Glucose (mg/dL) (75-99) mg/dL Urine Protein 1+ H (Negative) Ur Leukocyte Esterase Moderate H (Negative) Urine WBC 8 H (0-5) /hpf Urine Mucus Rare H (None) /hpf 02/18/21 Range/Units 12:03 WBC (3.8-10.6) k/uL MCV (80.0-100.0) fL RDW (11.5-15.5) % Neutrophils # (1.3-7.7) k/uL BUN (7-17) mg/dL Glucose (74-99) mg/dL POC Glucose (mg/dL) 153 H (75-99) mg/dL Urine Protein (Negative) Ur Leukocyte Esterase (Negative) Urine WBC (0-5) /hpf Urine Mucus (None) /hpf Diabetes panel 02/18/21 Range/Units 04:23 Sodium 139 (137-145) mmol/L Potassium 4.2 (3.5-5.1) mmol/L Chloride 106 (98-107) mmol/L Carbon Dioxide 23 (22-30) mmol/L BUN 19 H (7-17) mg/dL Creatinine 0.78 (0.52-1.04) mg/dL Glucose 139 H (74-99) mg/dL Calcium 9.9 (8.4-10.2) mg/dL AST 21 (14-36) U/L ALT 14 (4-34) U/L Alkaline Phosphatase 69 (38-126) U/L Total Protein 6.6 (6.3-8.2) g/dL Albumin 3.9 (3.5-5.0) g/dL Calcium panel 02/18/21 Range/Units 04:23 Calcium 9.9 (8.4-10.2) mg/dL Albumin 3.9 (3.5-5.0) g/dL Pituitary panel 02/18/21 Range/Units 04:23 Sodium 139 (137-145) mmol/L Potassium 4.2 (3.5-5.1) mmol/L Chloride 106 (98-107) mmol/L Carbon Dioxide 23 (22-30) mmol/L BUN 19 H (7-17) mg/dL Creatinine 0.78 (0.52-1.04) mg/dL Glucose 139 H (74-99) mg/dL Calcium 9.9 (8.4-10.2) mg/dL Adrenal panel 02/18/21 Range/Units 04:23 Sodium 139 (137-145) mmol/L Potassium 4.2 (3.5-5.1) mmol/L Chloride 106 (98-107) mmol/L Carbon Dioxide 23 (22-30) mmol/L BUN 19 H (7-17) mg/dL Creatinine 0.78 (0.52-1.04) mg/dL Glucose 139 H (74-99) mg/dL Calcium 9.9 (8.4-10.2) mg/dL Total Bilirubin 0.4 (0.2-1.3) mg/dL AST 21 (14-36) U/L ALT 14 (4-34) U/L Alkaline Phosphatase 69 (38-126) U/L Total Protein 6.6 (6.3-8.2) g/dL Albumin 3.9 (3.5-5.0) g/dL
--- NOTE | 2021-02-18 15:42 | P.HPIM ---
<Scar Leon - Last Filed: 02/18/21 15:26> History of Present Illness H&P Date: 02/18/21 History of presenting illness: Patient is a very pleasant 80-year-old female with a past medical history of CAD, hypertension, hyperlipidemia, atrial fibrillation on Xarelto, type II [id number]-wdtxyikik diabetes mellitus, GERD, and chronic anemia. She presented to the emergency department with a chief complaint of abdominal pain. Patient reports this pain began around 11 PM last night and was felt throughout abdomen and described as sharp and cramping in nature. Patient reports this pain continued and became significantly worse so she came to the emergency department for evaluation. Patient was seen and fully evaluated in the emergency department. Chest x-ray was completed negative for acute cardiopulmonary process. Abdominal x-ray/KUB was positive for gas fluid levels within distended small bowel in the mid to upper abdomen suggestive of a small bowel obstruction versus severe ileus. CT abdomen and pelvis then completed confirming partial distal small bowel obstruction. Patient admitted under our services with consultation to general surgery. While in the emergency department, the patient had episode of increased abdominal pain, nausea with 1 episode of vomiting. NG tube was placed. Patient reports history of small bowel obstruction in 2019 that required hospitalization but resolved without any surgical intervention. Pt states up until abdominal pain began, she has been having normal bowel function with her last bowel movement being yesterday morning. Patient denied having any other complaints including recent illness or exposure to known ill contacts, fevers, chills, diaphoresis, headache, lightheadedness, dizziness, chest pain or palpitations, or shortness of breath. Review of systems: Pertinent positives and negatives as discussed in HPI, a complete review of systems was performed and all other systems are negative. Physical exam: General: non toxic, no distress, appears at stated age Derm: warm, dry Head: atraumatic, normocephalic, symmetric Eyes: EOMI, no lid lag, anicteric sclera Nose/Mouth: no lip lesion, mucus membranes moist. NG tube in place. Cardiovascular: S1-S2 normal with regular rate and rhythm. No murmurs, gallops, or rubs noted. Posterior tibial pulses palpated bilaterally. Cap refill less than 2 seconds. Lungs: respirations even, regular, and unlabored on room air. Lungs clear to auscultation bilaterally. No wheezes, rhonchi, or rales noted. No accessory muscle use. Abdominal: soft and distended with diffuse tenderness upon palpation. No guarding or appreciable organomegaly noted. Ext: No gross muscle atrophy, no edema, no contractures Neuro: CN II-XI grossly intact, no focal neuro deficits Psych: Alert, oriented, appropriate affect Assessment and Plan of care: Abdominal pain with distal small bowel obstruction -Abdominal x-ray/KUB was positive for gas fluid levels within distended small bowel in the mid to upper abdomen suggestive of a small bowel obstruction versus severe ileus. -CT abdomen and pelvis then completed confirming partial distal small bowel obstruction. -NG tube placed in the ED after an episode of nausea and vomiting, continue NG tube to LIS -NPO -Gentle hydration with 0.9% normal saline at 75 mL's per hour. -General surgery consulted, patient scheduled for small bowel resection tomorrow with Dr. Bassett. -Xarelto on hold until cleared by General Surgery. Hypertension -Monitor vital signs and continue daily medication management with hydralazine, lisinopril, and metoprolol. Paroxysmal Atrial fibrillation -Xarelto on hold until cleared by General Surgery. -DVT prophylaxis with heparin Hyperlipidemia -Continue daily home medication regimen with [id number] mg nightly. The patient is admitted with an anticipated greater than 2 midnight stay for evaluation of small bowel obstruction. CODE STATUS: Full code DVT prophylaxis: Heparin Discussed with: Patient and RN Anticipated discharge date: Clinical course to determine. Anticipated discharge place: Home A total of 45 minutes was spent on the care of this complex patient more than 50% of the time was spent in counseling and care coordination. Past Medical History Past Medical History: Atrial Fibrillation, Cancer, CVA/TIA, Diabetes Mellitus, GERD/Reflux, Hyperlipidemia, Hypertension, Osteoarthritis (OA), Syncope Additional Past Medical History / Comment(s): OSteoporosis, hiatal hernia, diverticulosis, polyps, cervical cancer, DJD, History of Any Multi-Drug Resistant Organisms: None Reported Past Surgical History: Back Surgery, Heart Catheterization, Hysterectomy Additional Past Surgical History / Comment(s): EGD, Colonoscopy, bilateral cataract removed, "fatty tumor" removed from her back. Past Anesthesia/Blood Transfusion Reactions: No Reported Reaction, Motion Sickness Additional Past Anesthesia/Blood Transfusion Reaction / Comment(s): Pt has never recieved blood. SON "CODED" POST HIP REPLACEMENT Past Psychological History: Anxiety Additional Psychological History / Comment(s): Pt lives alone. 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 She uses no assistive devices or home care. She drives. Smoking Status: Never smoker Past Alcohol Use History: None Reported Additional Past Alcohol Use History / Comment(s): Pt states she smoked for about 52 yrs 1 ppd and eventually up to 1 /2 ppd but quit in 2008. Past Drug Use History: None Reported - Past Family History Father Family Medical History: Myocardial Infarction ([place]) Additional Family Medical History / Comment(s): Father of a [place] at age 76yrs. Mother Family Medical History: CVA/TIA Additional Family Medical History / Comment(s): Mother had a CVA at age 88yrs. She at age 92yrs. Medications and Allergies Home Medications Medication Instructions Recorded Confirmed Type metFORMIN HCL [Glucophage] 500 mg PO BID 07/02/15 02/18/21 History Aspirin 81 mg PO DAILY #1 chewable 07/04/15 02/18/21 Rx Cinnamon Bark [Cinnamon] 500 mg PO BID 07/15/15 02/18/21 History Vits A,C,E/Lutein/Minerals 1 tab PO BID 07/15/15 02/18/21 History [Ocuvite with Lutein Tablet] Atorvastatin [Lipitor] 40 mg PO HS 04/05/17 02/18/21 History lisinopriL [Zestril] 20 mg PO HS 04/14/17 02/18/21 History Rivaroxaban [Xarelto] 20 mg PO AC-SUPPER 01/22/19 02/18/21 History Omeprazole 20 mg PO HS 09/10/19 02/18/21 History Metoprolol Tartrate [Lopressor] 50 mg PO BID 10/20/20 02/18/21 History hydrALAZINE HCL [Apresoline] 50 mg PO AC-TID #0 10/21/20 02/18/21 Rx Cholecalciferol [Vitamin D3 (25 50 mcg PO DAILY 02/18/21 02/18/21 History Mcg = 1000 Iu)] Allergies Allergy/AdvReac Type Severity Reaction Status Date / Time amlodipine Allergy Anaphylaxis Verified 02/18/21 08:33 isosorbide mononitrate Allergy Rash/Hives Verified 02/18/21 08:33 [From [facility]] Physical Exam Vitals: Vital Signs Temp Pulse Resp BP Pulse Ox 02/18/21 05:30 68 18 134/71 96 02/18/21 04:43 72 16 155/67 96 02/18/21 03:47 97.2 F L 83 18 197/77 94 L Intake and Output 02/17/21 02/18/21 02/18/21 22:59 06:59 14:59 Other: Weight 68.039 kg Results CBC & Chem 7: 02/18/21 04:23 02/18/21 04:23 Labs: Abnormal Lab Results - Last 24 Hours (Table) 02/18/21 02/18/21 02/18/21 Range/Units 04:23 04:23 05:23 WBC 13.7 H (3.8-10.6) k/uL MCV 76.7 L (80.0-100.0) fL RDW 18.2 H (11.5-15.5) % Neutrophils # 10.7 H (1.3-7.7) k/uL BUN 19 H (7-17) mg/dL Glucose 139 H (74-99) mg/dL Urine Protein 1+ H (Negative) Ur Leukocyte Esterase Moderate H (Negative) Urine WBC 8 H (0-5) /hpf Urine Mucus Rare H (None) /hpf <Giovana Ramirez - Last Filed: 02/18/21 18:30> History of Present Illness Patient seen and examined independently. Patient was also seen by Scar Leon NP and case was discussed. I am in agreement with subjective, physical exam, assessment and plan as written above and amended below. General: non toxic, no distress, appears at stated age Derm: warm, dry Head: atraumatic, normocephalic, symmetric Eyes: EOMI, no lid lag, anicteric sclera Mouth: no lip lesion, mucus membranes moist Cardiovascular: S1S2 reg, no murmur, positive posterior tibial pulse bilateral, Lungs: CTA bilateral, no rhonchi, no rales , no accessory muscle use Abdominal: soft, tender to palpation epigastric no guarding, no appreciable organomegaly Physical Exam Osteopathic Statement: *. No significant issues noted on an osteopathic structural exam other than those noted in the History and Physical/Consult. Vitals: Vital Signs Temp Pulse Pulse Resp BP BP Pulse Ox 02/18/21 14:58 93 L 02/18/21 14:50 98.5 F 85 17 173/83 85 L 02/18/21 10:46 97.2 F L 76 18 171/61 93 L 02/18/21 10:16 98 F 73 18 145/51 95 02/18/21 09:04 80 18 155/62 95 02/18/21 05:30 68 18 134/71 96 02/18/21 04:43 72 16 155/67 96 02/18/21 03:47 97.2 F L 83 18 197/77 94 L Intake and Output 02/18/21 02/18/21 02/18/21 06:59 14:59 22:59 Other: Voiding Method Toilet Weight 68.039 kg 68.039 kg Results CBC & Chem 7: 02/18/21 04:23 02/18/21 04:23 Labs: Abnormal Lab Results - Last 24 Hours (Table) 02/18/21 02/18/21 02/18/21 Range/Units 04:23 04:23 05:23 WBC 13.7 H (3.8-10.6) k/uL MCV 76.7 L (80.0-100.0) fL RDW 18.2 H (11.5-15.5) % Neutrophils # 10.7 H (1.3-7.7) k/uL BUN 19 H (7-17) mg/dL Glucose 139 H (74-99) mg/dL POC Glucose (mg/dL) (75-99) mg/dL Urine Protein 1+ H (Negative) Ur Leukocyte Esterase Moderate H (Negative) Urine WBC 8 H (0-5) /hpf Urine Mucus Rare H (None) /hpf 02/18/21 02/18/21 Range/Units 12:03 17:10 WBC (3.8-10.6) k/uL MCV (80.0-100.0) fL RDW (11.5-15.5) % Neutrophils # (1.3-7.7) k/uL BUN (7-17) mg/dL Glucose (74-99) mg/dL POC Glucose (mg/dL) 153 H 111 H (75-99) mg/dL Urine Protein (Negative) Ur Leukocyte Esterase (Negative) Urine WBC (0-5) /hpf Urine Mucus (None) /hpf Microbiology - Last 24 Hours (Table) 02/18/21 05:23 Urine Culture - Preliminary Urine,Voided
[2021-02-18] MEDS: hydrALAZINE HCL 50 MG TAB PO SCH (16:40)
[2021-02-18] MEDS: HEPARIN SODIUM,PORCINE/PF 5,000 UNIT/0.5 ML SYRINGE SQ SCH ×2 (16:40→23:55)
[2021-02-18 17:11] LABS: Glucose,Whole Blood 111 mg/dL (75-99)
[2021-02-18 20:45] LABS: Glucose,Whole Blood 117 mg/dL (75-99)
[2021-02-18] MEDS ORDERED: MELATONIN 3 MG TABLET PO PRN (21:00)
[2021-02-18] MEDS: ATORVASTATIN 40 MG TAB PO SCH (21:06)
[2021-02-18] MEDS: lisinopriL 20 MG TAB PO SCH (21:06)
[2021-02-18] MEDS: METOPROLOL TARTRATE 50 MG TAB PO SCH (21:06)
[2021-02-19 09:38] LABS: Anisocytosis Slight; Basophils % (A) 1 %; Eosinophils # (A) 0.1 k/uL (0-0.7); Eosinophils % (A) 1 %; HCT 30.2 % (34.0-46.0); Hypochromasia Moderate; Lymphocytes # (A) 1.8 k/uL (1.0-4.8); Lymphocytes % (A) 20 %; MCH 25.4 pg (25.0-35.0); MCHC 32.4 g/dL (31.0-37.0); MCV 78.4 fL (80.0-100.0); Mean Platelet Volume 7.4; Microcytosis Slight; Monocytes # (A) 0.8 k/uL (0-1.0); Monocytes % (A) 10 %; Neutrophils # (A) 5.9 k/uL (1.3-7.7); Neutrophils % (A) 67 %; Platelet Count 323 k/uL (150-450); RBC 3.86 m/uL (3.80-5.40); RDW 18.1 % (11.5-15.5); WBC 8.7 k/uL (3.8-10.6)
[2021-02-19 09:45] LABS: African American GFR (CKD) >90 (>60 ml/min/1.73 sqM); Anion Gap 6 mmol/L; Blood Urea Nitrogen 13 mg/dL (7-17); Calcium 8.6 mg/dL (8.4-10.2); Carbon Dioxide 26 mmol/L (22-30); Chloride 109 mmol/L (98-107); Glucose 100 mg/dL (74-99); Non-African American GFR(CKD) 80 (>60 ml/min/1.73 sqM); Potassium 4.2 mmol/L (3.5-5.1); Sodium 141 mmol/L (137-145)
[2021-02-19 09:50] LABS: INR 1.1 (<1.2); Prothrombin Time 11.3 sec (9.0-12.0)
[2021-02-19 09:56] LABS: HGB 9.8 gm/dL (11.4-16.0)
[2021-02-19] MEDS: hydrALAZINE HCL 50 MG TAB PO SCH ×3 (10:46→16:59)
[2021-02-19] MEDS: METOPROLOL TARTRATE 50 MG TAB PO SCH ×2 (10:46→20:01)
[2021-02-19 11:36] LABS: Basophils # (A) 0.01 X 10*3/uL (0.00-0.10); Basophils % (A) 0.1 %; Eosinophils # (A) 0.13 X 10*3/uL (0.04-0.35); Eosinophils % (A) 1.5 %; HCT 31.3 % (37.2-46.3); HGB 9.1 g/dL (12.0-15.0); Lymphocytes # (A) 2.11 X 10*3/uL (0.90-5.00); Lymphocytes % (A) 24.4 %; MCH 23.8 pg (27.0-32.0); MCHC 29.1 g/dL (32.0-37.0); MCV 81.9 fL (80.0-97.0); Mean Platelet Volume 10.9 fL (9.5-12.2); Monocytes # (A) 1.09 X 10*3/uL (0.20-1.00); Monocytes % (A) 12.6 %; Neutrophils # (A) 5.26 X 10*3/uL (1.80-7.70); Neutrophils % (A) 61.1 %; Platelet Count 396 X 10*3/uL (140-440); RBC 3.82 X 10*6/uL (4.10-5.20); RDW 19.6 % (11.5-14.5); WBC 8.63 X 10*3/uL (4.50-10.00)
[2021-02-19 11:48] LABS: Glucose,Whole Blood 97 mg/dL (75-99)
--- NOTE | 2021-02-19 11:51 | P.PN ---
<Scar Leon - Last Filed: 02/19/21 11:40> Subjective Progress Note Date: 02/19/21 History of presenting illness: Patient is a very pleasant 80-year-old female with a past medical history of CAD, hypertension, hyperlipidemia, atrial fibrillation on Xarelto, type II xjc-iitjauw-kioosvwbl diabetes mellitus, GERD, and chronic anemia. She presented to the emergency department with a chief complaint of abdominal pain. Patient reports this pain began around 11 PM last night and was felt throughout abdomen and described as sharp and cramping in nature. Patient reports this pa in continued and became significantly worse so she came to the emergency department for evaluation. Patient was seen and fully evaluated in the emergency department. Chest x-ray was completed negative for acute cardiopulmonary process. Abdominal x-ray/KUB was positive for gas fluid levels within distended small bowel in the mid to upper abdomen suggestive of a small bowel obstruction versus severe ileus. CT abdomen and pelvis then completed confirming partial distal small bowel obstruction. Patient admitted under our services with consultation to general surgery. Physical exam: Patient seen and fully evaluated at the bedside. NG tube remains in place to low intermittent suction with gastric secretions and tubing in collection chamber. No evidence of bleeding. Patient reports abdominal pain has subsided but continues to be tender in left upper right upper and left lower quadrants with mild palpation. Patient denies having any further episodes of nausea or vomiting. Patient denies having any headache, lightheadedness, dizziness, fev er, chills, diaphoresis, chest pain, palpitations, or shortness of breath. Plan for patient to be taken to the OR for small bowel resection this afternoon with Dr. Bassett. General: non toxic, no distress, appears at stated age Derm: warm, dry Head: atraumatic, normocephalic, symmetric Eyes: EOMI, no lid lag, anicteric sclera Nose/Mouth: no lip lesion, mucus membranes moist. NG tube in place. Cardiovascular: S1-S2 normal with regular rate and rhythm. No murmurs, gallops, or rubs noted. Posterior tibial pulses palpated bilaterally. Cap refill less than 2 seconds. Lungs: respirations even, regular, and unlabored on room air. Lungs clear to auscultation bilaterally. No wheezes, rhonchi, or rales noted. No accessory muscle use. Abdominal: soft and distended with diffuse tenderness upon palpation. No guarding or appreciable organomegaly noted. Ext: No gross muscle atrophy, no edema, no contractures Neuro: CN II-XI grossly intact, no focal neuro deficits Psych: Alert, oriented, appropriate affect Assessment and Plan of care: Abdominal pain with distal small bowel obstruction -Abdominal x-ray/KUB was positive for gas fluid levels within distended small bowel in the mid to upper abdomen suggestive of a small bowel obstruction versus severe ileus. -CT abdomen and pelvis then completed confirming partial distal small bowel obstruction. -NG tube to continue to LIS -NPO -Continue Gentle hydration with 0.9% normal saline at 75 mL's per hour. -General surgery following, patient scheduled for small bowel resection this afternoon with Dr. Bassett. -Xarelto on hold until cleared by General Surgery. Medical clearance for small bowel resection -NSQIP surgical risk states patient has a less than average risk for serious complications with reports of 15% chance of serious complication, 2% chance of developing pneumonia, 2% chance of cardiac complication, and 2% chance of . The patient does have an above average risk of need for discharge to penitentiary or rehab facility at 18%. -METS score >4 as patient is able to perform ADLs independently and reports no difficulties walking 1-2 blocks and/or up one flight of stairs without chest pain or shortness of breath. -Patient cleared from medical standpoint at this time requiring no additional tests prior to surgical intervention. Hypertension -Monitor vital signs and continue daily medication management with hydralazine, lisinopril, and metoprolol. Paroxysmal Atrial fibrillation -Xarelto on hold until cleared by General Surgery. -DVT prophylaxis with heparin Hyperlipidemia -Continue daily home medication regimen with [id number] mg nightly. CODE STATUS: Full code DVT prophylaxis: Heparin Discussed with: Patient and RN Anticipated discharge date: Clinical course to determine. Anticipated discharge place: Home A total of 45 minutes was spent on the care of this complex patient more than 50% of the time was spent in counseling and care coordination. Objective - Vital Signs Vital signs: Vital Signs Temp 99.2 F 02/19/21 01:55 Pulse 85 02/19/21 01:55 Resp 18 02/19/21 01:55 BP 158/62 02/19/21 01:55 Pulse Ox 93 L 02/19/21 01:55 Intake & Output 02/18/21 02/19/21 02/19/21 18:59 06:59 18:59 Intake Total 225 Balance 225 Weight 68.039 kg Intake: IV 225 Invasive Line 1 225 Other: Voiding Method Toilet # Voids 3 - Labs CBC & Chem 7: 02/19/21 08:40 02/19/21 08:40 Labs: Abnormal Lab Results - Last 24 Hours (Table) 02/18/21 02/18/21 02/18/21 Range/Units 12:03 17:10 20:43 Hgb (11.4-16.0) gm/dL Hct (34.0-46.0) % MCV (80.0-100.0) fL RDW (11.5-15.5) % Chloride (98-107) mmol/L Glucose (74-99) mg/dL POC Glucose (mg/dL) 153 H 111 H 117 H (75-99) mg/dL 02/19/21 02/19/21 Range/Units 08:40 08:40 Hgb 9.8 L D (11.4-16.0) gm/dL Hct 30.2 L (34.0-46.0) % MCV 78.4 L (80.0-100.0) fL RDW 18.1 H (11.5-15.5) % Chloride 109 H (98-107) mmol/L Glucose 100 H (74-99) mg/dL POC Glucose (mg/dL) (75-99) mg/dL Microbiology - Last 24 Hours (Table) 02/18/21 05:23 Urine Culture - Preliminary Urine,Voided <Giovana Ramirez A - Last Filed: 02/19/21 20:53> Subjective I discussed the care with Scar Leon NP and reviewed the findings and plan as documented in the note above. I did not physically speak with or examine the patient on this date. Objective - Vital Signs Vital signs: Vital Signs Temp 99 F 02/19/21 19:51 Pulse 75 02/19/21 19:51 Resp 16 02/19/21 19:51 BP 160/74 02/19/21 19:51 Pulse Ox 96 02/19/21 19:51 Intake & Output 02/19/21 02/19/21 02/20/21 06:59 18:59 06:59 Intake Total 225 2825 Output Total 520 Balance 225 2305 Weight 68.04 kg Intake: IV 225 1275 Invasive Line 1 225 225 Intake, IV Titration 1550 Amount Lactated Ringers 1,000 ml 1500 @ 0 mls/hr IV .STK-MED ONE Rx#:[id number] ceFAZolin 2 gm In Sodium 50 Chloride 0.9% 50 ml @ 100 mls/hr IVPB ONCE ONE Rx# :[id number] Output: Urine 500 Estimated Blood Loss 20 Other: Voiding Method Indwelling Catheter # Voids 3 - Labs CBC & Chem 7: 02/19/21 08:40 02/19/21 08:40 Labs: Abnormal Lab Results - Last 24 Hours (Table) 02/19/21 02/19/21 02/19/21 Range/Units 06:33 06:33 08:40 RBC 3.82 L (4.10-5.20) X 10*6/uL Hgb 9.1 L 9.8 L D (12.0-15.0) g/dL Hct 31.3 L 30.2 L (37.2-46.3) % MCV 78.4 L (80.0-100.0) fL MCH 23.8 L (27.0-32.0) pg MCHC 29.1 L (32.0-37.0) g/dL RDW 19.6 H 18.1 H (11.5-14.5) % Monocytes # 1.09 H (0.20-1.00) X 10*3/uL Chloride 110 H (96-109) mmol/L BUN/Creatinine Ratio 21.67 H (12.00-20.00) Ratio Glucose (74-99) mg/dL POC Glucose (mg/dL) (75-99) mg/dL Calcium 8.3 L (8.7-10.3) mg/dL 02/19/21 02/19/21 02/19/21 Range/Units 08:40 16:29 20:07 RBC (4.10-5.20) X 10*6/uL Hgb (12.0-15.0) g/dL Hct (37.2-46.3) % MCV (80.0-100.0) fL MCH (27.0-32.0) pg MCHC (32.0-37.0) g/dL RDW (11.5-14.5) % Monocytes # (0.20-1.00) X 10*3/uL Chloride 109 H (96-109) mmol/L BUN/Creatinine Ratio (12.00-20.00) Ratio Glucose 100 H (74-99) mg/dL POC Glucose (mg/dL) 122 H 136 H (75-99) mg/dL Calcium (8.7-10.3) mg/dL Microbiology - Last 24 Hours (Table) 02/18/21 05:23 Urine Culture - Final Urine,Voided
[2021-02-19] MEDS: HEPARIN SODIUM,PORCINE/PF 5,000 UNIT/0.5 ML SYRINGE SQ SCH ×3 (11:59→23:05)
[2021-02-19 12:03] LABS: African American GFR (CKD) 99.8 (60.0-200.0); Anion Gap 8.1 mmol/L (4.00-12.00); BUN/Creat Ratio 21.67 Ratio (12.00-20.00); Calcium 8.3 mg/dL (8.7-10.3); Carbon Dioxide 24.9 mmol/L (21.6-31.8); Magnesium 1.5 mg/dL (1.5-2.4); Non-African American GFR(CKD) 86.1 (60.0-200.0); Potassium 4.3 mmol/L (3.5-5.5)
[2021-02-19] MEDS ORDERED: LACTATED RINGERS 1,000 ML IV ONE (13:45)
[2021-02-19] MEDS ORDERED: ONDANSETRON 4 MG/2 ML VIAL IVP ONE (14:00)
[2021-02-19] MEDS ORDERED: DEXAMETHASONE SOD PHOSPHATE 4 MG/ML 1 ML VIAL IV ONE (14:00)
[2021-02-19] MEDS ORDERED: SUCCINYLCHOLINE CHLORIDE 100 MG/5 ML SYR IV ONE (14:37)
[2021-02-19] MEDS ORDERED: PROPOFOL 10 MG/ML 20 ML VIAL IV ONE (14:37)
[2021-02-19] MEDS ORDERED: ROCURONIUM 10 MG/ML (5 ML VIAL) IV ONE (14:37)
[2021-02-19] MEDS ORDERED: GLYCOPYRROLATE 0.2 MG/ML 2 ML VIAL ONE (14:37)
[2021-02-19] MEDS ORDERED: NEOSTIGMINE 1 MG/ML 10 ML VIAL ONE (14:37)
[2021-02-19] MEDS ORDERED: LIDOCAINE 1% INJ 10MG/ML (20 ML MDV) ONE (14:37)
[2021-02-19] MEDS ORDERED: fentaNYL (PF) 50 MCG/ML 2 ML AMP ONE (14:37)
--- NOTE | 2021-02-19 15:58 | P.OP ---
Date of Procedure: 02/19/21 Preoperative Diagnosis: Small bowel obstruction Postoperative Diagnosis: Small bowel obstruction Procedure(s) Performed: Small bowel resection Anesthesia: SOL Surgeon: Wagner Bassett Estimated Blood Loss (ml): 10 Pathology: other (Ileum) Condition: stable Disposition: PACU Description of Procedure: The patient's placed on the operative table in supine position. She received general anesthesia. Her abdomen was prepped and draped usual sterile fashion. The was entered through midline incision. Upon entering the abdomen the small bowel was quite dilated. The small bowel was run down towards the terminal ileum. And in the proximal ileum there was evidence of an obstruction. The lymph node measured prostate 7 inches long obstructed. At this point the small bowel was transected proximally distally with a GI stapler. And then using the Enseal device the mesentery the bowel was divided. A otuy-cj-jiuu functional end-to-end staple anastomosis created using DONNY and TA stapler. 3-0 GI silk sutures as a crotch stitch. The abdomen was areas no bleeding seen. Small bowel was then run again and there is no evidence of any other obstruction. The fascia was closed with looped #1 PDS suture. Skin was closed nara. Patient top she will was sent to recovery room stable condition.
[2021-02-19] MEDS ORDERED: METOCLOPRAMIDE 5 MG/ML 2 ML VIAL IVP PRN (15:59)
[2021-02-19] MEDS ORDERED: NALOXONE 0.4 MG/ML 1 ML VIAL IV PRN (15:59)
[2021-02-19] MEDS: ONDANSETRON 4 MG/2 ML VIAL IVP PRN (16:07)
[2021-02-19] MEDS ORDERED: HYDROmorphone 0.5 MG/0.5 ML SYRINGE IVP ONE ×2 (16:08→16:15)
[2021-02-19 16:31] LABS: Glucose,Whole Blood 122 mg/dL (75-99)
[2021-02-19] MEDS: DOCUSATE 100 MG CAP PO SCH (20:01)
[2021-02-19] MEDS: lisinopriL 20 MG TAB PO SCH (20:01)
[2021-02-19] MEDS: ATORVASTATIN 40 MG TAB PO SCH (20:01)
[2021-02-19] MEDS: MORPHINE SULFATE 2 MG/ML SYRINGE IV PRN (20:02)
[2021-02-19 20:10] LABS: Glucose,Whole Blood 136 mg/dL (75-99)
[2021-02-19] MEDS: D5-0.45% NACL WITH KCL 20MEQ/L 1,000 ML IV SCH ×2 (20:48→23:05)
[2021-02-20] MEDS: MORPHINE SULFATE 2 MG/ML SYRINGE IV PRN (00:08)
[2021-02-20] MEDS: MORPHINE SULFATE 4 MG/ML SYRINGE IV PRN ×3 (03:30→15:06)
[2021-02-20] MEDS: hydrALAZINE HCL 50 MG TAB PO SCH ×3 (07:15→17:06)
[2021-02-20] MEDS: DOCUSATE 100 MG CAP PO SCH ×2 (07:15→20:20)
[2021-02-20] MEDS: METOPROLOL TARTRATE 50 MG TAB PO SCH ×2 (07:15→20:20)
[2021-02-20] MEDS: D5-0.45% NACL WITH KCL 20MEQ/L 1,000 ML IV SCH ×2 (07:16→14:45)
[2021-02-20] MEDS: HEPARIN SODIUM,PORCINE/PF 5,000 UNIT/0.5 ML SYRINGE SQ SCH ×3 (07:16→22:59)
[2021-02-20 07:29] LABS: Glucose,Whole Blood 155 mg/dL (75-99)
[2021-02-20 09:05] LABS: Anisocytosis Slight; HCT 30.8 % (34.0-46.0); HGB 9.9 gm/dL (11.4-16.0); Hypochromasia Moderate; MCH 25.1 pg (25.0-35.0); MCHC 32.2 g/dL (31.0-37.0); MCV 77.9 fL (80.0-100.0); Microcytosis Slight; Platelet Count 359 k/uL (150-450); RBC 3.95 m/uL (3.80-5.40); RDW 18.2 % (11.5-15.5); WBC 13.5 k/uL (3.8-10.6)
[2021-02-20] MEDS ORDERED: MORPHINE SULFATE 4 MG/ML SYRINGE IV STA (09:11)
[2021-02-20 09:14] LABS: African American GFR (CKD) >90 (>60 ml/min/1.73 sqM); Anion Gap 5 mmol/L; Blood Urea Nitrogen 14 mg/dL (7-17); Calcium 8.5 mg/dL (8.4-10.2); Carbon Dioxide 26 mmol/L (22-30); Chloride 107 mmol/L (98-107); Glucose 151 mg/dL (74-99); Magnesium 1.6 mg/dL (1.6-2.3); Non-African American GFR(CKD) 81 (>60 ml/min/1.73 sqM); Potassium 4.8 mmol/L (3.5-5.1); Sodium 138 mmol/L (137-145)
[2021-02-20] MEDS: ACETAMINOPHEN IV (For NPO) 1,000 MG in EMPTY BAG 1 BAG IVPB SCH ×4 (09:59→23:00)
[2021-02-20 11:48] LABS: Glucose,Whole Blood 166 mg/dL (75-99)
--- NOTE | 2021-02-20 13:48 | P.PN ---
Progress Note - Text Progress Note Date: 02/20/21 Patient feels well. She is postoperative day 1 from small bowel resection. She has minimal complaints of pain. On exam vital signs are stable. Abdomen soft. Incisions clean dry tach. Postoperative day 1 from small bowel resection. Patient will have her diet advanced slowly.
--- NOTE | 2021-02-20 15:14 | P.PN ---
Subjective Progress Note Date: 02/20/21 History of presenting illness: Patient is a very pleasant 80-year-old female with a past medical history of CAD, hypertension, hyperlipidemia, atrial fibrillation on Xarelto, type II jxk-njhabll-qydkigkwa diabetes mellitus, GERD, and chronic anemia. She presente d to the emergency department with a chief complaint of abdominal pain. Patient reports this pain began around 11 PM last night and was felt throughout abdomen and described as sharp and cramping in nature. Patient reports this pain continued and became significantly worse so she came to the emergency department for evaluation. Patient was seen and fully evaluated in the emergency department. Chest x-ray was completed negative for acute cardiopulmonary process. Abdominal x-ray/KUB was positive for gas fluid levels within distended small bowel in the mid to upper abdomen suggestive of a small bowel obstruction versus severe ileus. CT abdomen and pelvis then completed confirming partial distal small bowel obstruction. Patient admitted under our services with consultation to general surgery. Patient underwent small bowel resection completed by Dr. Bassett on 02/19/21. Physical exam: 02/20/21: Patient seen and fully evaluated at the bedside. NG tube remains in place to low intermittent suction with gastric secretions and tubing in collection chamber. Patient is postoperative day 1. This morning she reports uncontrolled abdominal pain and nausea, additional one-time dose of morphine to be given and Ofirmev 1000 mg to 6 hours was added onto pain management regimen. Patient medicated for nausea. Within 15 minutes of receiving additional dose of morphine, patient reports significant improvement of pain and nausea. Postsurgical dressing intact with abdominal binder, no evidence of bleeding at this time. Patient denies having any headache, lightheadedness, dizziness, fever, chills, diaphoresis, chest pain, palpitations, shortness of breath, or episodes of vomiting. General: non toxic, no distress, appears at stated age Derm: warm, dry Head: atraumatic, normocephalic, symmetric Eyes: EOMI, no lid lag, anicteric sclera Nose/Mouth: no lip lesion, mucus membranes moist. NG tube in place. Cardiovascular: S1-S2 normal with regular rate and rhythm. No murmurs, gallops, or rubs noted. Posterior tibial pulses palpated bilaterally. Cap refill less than 2 seconds. Lungs: respirations even, regular, and unlabored on room air. Lungs clear to auscultation bilaterally. No wheezes, rhonchi, or rales noted. No accessory muscle use. Abdominal: soft and distended with diffuse tenderness upon palpation. No guarding or appreciable organomegaly noted. Ext: No gross muscle atrophy, no edema, no contractures Neuro: CN II-XI grossly intact, no focal neuro deficits Psych: Alert, oriented, appropriate affect Assessment and Plan of care: Abdominal pain with distal small bowel obstruction -Abdominal x-ray/KUB was positive for gas fluid levels within distended small bowel in the mid to upper abdomen suggestive of a small bowel obstruction versus severe ileus. -CT abdomen and pelvis then completed confirming partial distal small bowel obstruction. -NG tube to continue to LIS -NPO -Continue Gentle hydration with 0.9% normal saline at 75 mL's per hour. -General surgery following, patient postoperative day 1 of small bowel resection completed by Dr. Bassett on 02/19/21. -Xarelto on hold until cleared by General Surgery. Subcutaneous heparin per DVT prophylaxis. Hypertension -Monitor vital signs and continue daily medication management with hydralazine, lisinopril, and metoprolol. Paroxysmal Atrial fibrillation -Xarelto on hold until cleared by General Surgery. -DVT prophylaxis with heparin Hyperlipidemia -Continue daily home medication regimen with [id number] mg nightly. Medical clearance for small bowel resection -NSQIP surgical risk states patient has a less than average risk for serious complications with reports of 15% chance of serious complication, 2% chance of developing pneumonia, 2% chance of cardiac complication, and 2% chance of . The patient does have an above average risk of need for discharge to detention or rehab facility at 18%. -METS score >4 as patient is able to perform ADLs independently and reports no difficulties walking 1-2 blocks and/or up one flight of stairs without chest pain or shortness of breath. -Patient cleared from medical standpoint at this time requiring no additional tests prior to surgical intervention. CODE STATUS: Full code DVT prophylaxis: Heparin Discussed with: Patient and RN Anticipated discharge date: Clinical course to determine. Anticipated discharge place: Home A total of 45 minutes was spent on the care of this complex patient more than 50% of the time was spent in counseling and care coordination. Objective - Vital Signs Vital signs: Vital Signs Temp 98.0 F 02/20/21 08:00 Pulse 78 02/20/21 08:00 Resp 17 02/20/21 08:00 BP 181/71 02/20/21 08:00 Pulse Ox 97 02/20/21 08:27 Intake & Output 02/19/21 02/20/21 02/20/21 18:59 06:59 18:59 Intake Total 2825 Output Total 520 200 Balance 2305 -200 Weight 68.04 kg Intake: IV 1275 Invasive Line 1 225 Intake, IV Titration 1550 Amount Lactated Ringers 1,000 ml 1500 @ 0 mls/hr IV .STK-MED ONE Rx#:[id number] ceFAZolin 2 gm In Sodium 50 Chloride 0.9% 50 ml @ 100 mls/hr IVPB ONCE ONE Rx# :[id number] Output: Gastric Drainage 200 Urine 500 Estimated Blood Loss 20 Other: Voiding Method Indwelling Catheter Indwelling Catheter - Labs CBC & Chem 7: 02/20/21 08:36 02/20/21 08:36 Labs: Abnormal Lab Results - Last 24 Hours (Table) 02/19/21 02/19/21 02/19/21 Range/Units 06:33 06:33 08:40 WBC (3.8-10.6) k/uL RBC 3.82 L (4.10-5.20) X 10*6/uL Hgb 9.1 L 9.8 L D (12.0-15.0) g/dL Hct 31.3 L 30.2 L (37.2-46.3) % MCV 78.4 L (80.0-100.0) fL MCH 23.8 L (27.0-32.0) pg MCHC 29.1 L (32.0-37.0) g/dL RDW 19.6 H 18.1 H (11.5-14.5) % Monocytes # 1.09 H (0.20-1.00) X 10*3/uL Chloride 110 H (96-109) mmol/L BUN/Creatinine Ratio 21.67 H (12.00-20.00) Ratio Glucose (74-99) mg/dL POC Glucose (mg/dL) (75-99) mg/dL Calcium 8.3 L (8.7-10.3) mg/dL 02/19/21 02/19/21 02/19/21 Range/Units 08:40 16:29 20:07 WBC (3.8-10.6) k/uL RBC (4.10-5.20) X 10*6/uL Hgb (12.0-15.0) g/dL Hct (37.2-46.3) % MCV (80.0-100.0) fL MCH (27.0-32.0) pg MCHC (32.0-37.0) g/dL RDW (11.5-14.5) % Monocytes # (0.20-1.00) X 10*3/uL Chloride 109 H (96-109) mmol/L BUN/Creatinine Ratio (12.00-20.00) Ratio Glucose 100 H (74-99) mg/dL POC Glucose (mg/dL) 122 H 136 H (75-99) mg/dL Calcium (8.7-10.3) mg/dL 02/20/21 02/20/21 Range/Units 07:28 08:36 WBC 13.5 H (3.8-10.6) k/uL RBC (4.10-5.20) X 10*6/uL Hgb 9.9 L (12.0-15.0) g/dL Hct 30.8 L (37.2-46.3) % MCV 77.9 L (80.0-100.0) fL MCH (27.0-32.0) pg MCHC (32.0-37.0) g/dL RDW 18.2 H (11.5-14.5) % Monocytes # (0.20-1.00) X 10*3/uL Chloride (96-109) mmol/L BUN/Creatinine Ratio (12.00-20.00) Ratio Glucose (74-99) mg/dL POC Glucose (mg/dL) 155 H (75-99) mg/dL Calcium (8.7-10.3) mg/dL Microbiology - Last 24 Hours (Table) 02/18/21 05:23 Urine Culture - Final Urine,Voided
[2021-02-20 16:46] LABS: Glucose,Whole Blood 195 mg/dL (75-99)
[2021-02-20] MEDS: guaiFENesin SYRUP 100MG/5ML 200 MG/10 ML CUP NG-TUBE SCH ×2 (17:07→22:59)
[2021-02-20] MEDS: HYDROmorphone 0.5 MG/0.5 ML SYRINGE IVP PRN ×2 (17:08→22:31)
--- NOTE | 2021-02-20 17:22 | XR ---
EXAMINATION TYPE: XR chest 1V portable DATE OF EXAM: 02/20/2021 COMPARISON: 02/18/2021 HISTORY: Cough and shortness of breath TECHNIQUE: Single frontal view of the chest is obtained. FINDINGS: There is no change in the NG tube within the stomach. There is prominent diffuse interstitial markings bilaterally consistent with mild interstitial edema which has developed in the interval since the prior study. There is also a small right pleural effusi on which was not present previously. There is no pneumothorax. Heart size is normal. The osseous structures are intact. IMPRESSION: Findings most consistent with development of moderate CHF
[2021-02-20] MEDS ORDERED: SODIUM CHLORIDE 0.9% 1,000 ML IV SCH (18:00)
[2021-02-20 20:05] LABS: Glucose,Whole Blood 122 mg/dL (75-99)
[2021-02-20] MEDS: ATORVASTATIN 40 MG TAB PO SCH (20:20)
[2021-02-20] MEDS: lisinopriL 20 MG TAB PO SCH (20:20)
[2021-02-21] MEDS: ACETAMINOPHEN IV (For NPO) 1,000 MG in EMPTY BAG 1 BAG IVPB SCH ×4 (05:55→23:05)
[2021-02-21] MEDS: guaiFENesin SYRUP 100MG/5ML 200 MG/10 ML CUP NG-TUBE SCH ×4 (05:58→23:06)
[2021-02-21] MEDS: MORPHINE SULFATE 2 MG/ML SYRINGE IV PRN ×3 (06:00→18:05)
[2021-02-21 07:11] LABS: Glucose,Whole Blood 105 mg/dL (75-99)
[2021-02-21] MEDS: DOCUSATE 100 MG CAP PO SCH ×2 (08:27→20:23)
[2021-02-21] MEDS: METOPROLOL TARTRATE 50 MG TAB PO SCH ×2 (08:27→20:23)
[2021-02-21] MEDS: hydrALAZINE HCL 50 MG TAB PO SCH ×3 (08:27→16:41)
[2021-02-21] MEDS: HEPARIN SODIUM,PORCINE/PF 5,000 UNIT/0.5 ML SYRINGE SQ SCH ×3 (08:27→23:06)
[2021-02-21 09:04] LABS: HCT 26.8 % (34.0-46.0); HGB 8.6 gm/dL (11.4-16.0); MCH 25.1 pg (25.0-35.0); MCHC 32.2 g/dL (31.0-37.0); MCV 77.8 fL (80.0-100.0); RBC 3.44 m/uL (3.80-5.40); RDW 18.4 % (11.5-15.5); WBC 10.5 k/uL (3.8-10.6)
[2021-02-21 09:05] LABS: Anisocytosis Slight; Basophils % (A) 0 %; Eosinophils # (A) 0.2 k/uL (0-0.7); Eosinophils % (A) 2 %; Hypochromasia Moderate; Lymphocytes # (A) 1.7 k/uL (1.0-4.8); Lymphocytes % (A) 16 %; Mean Platelet Volume 7.5; Microcytosis Slight; Monocytes % (A) 9 %; Neutrophils # (A) 7.5 k/uL (1.3-7.7); Neutrophils % (A) 71 %; Platelet Count 324 k/uL (150-450)
[2021-02-21 09:21] LABS: ALT 7 U/L (4-34); AST 19 U/L (14-36); African American GFR (CKD) >90 (>60 ml/min/1.73 sqM); Albumin 2.8 g/dL (3.5-5.0); Albumin/Globulin Ratio 1.2; Alkaline Phosphatase 55 U/L (38-126); Anion Gap 5 mmol/L; Blood Urea Nitrogen 14 mg/dL (7-17); Calcium 8.4 mg/dL (8.4-10.2); Carbon Dioxide 25 mmol/L (22-30); Chloride 108 mmol/L (98-107); Globulin 2.4 g/dL; Glucose 95 mg/dL (74-99); Magnesium 1.6 mg/dL (1.6-2.3); Non-African American GFR(CKD) 78 (>60 ml/min/1.73 sqM); Potassium 4.6 mmol/L (3.5-5.1); Sodium 138 mmol/L (137-145); Total Bilirubin 0.5 mg/dL (0.2-1.3); Total Protein 5.2 g/dL (6.3-8.2)
[2021-02-21 11:33] LABS: Glucose,Whole Blood 100 mg/dL (75-99)
--- NOTE | 2021-02-21 11:44 | P.PN ---
Progress Note - Text Progress Note Date: 02/21/21 The patient feels well. She has been liquids pain. On exam her vital signs are stable. Abdomen is soft. Incisions clean dry tach. Status post small bowel resection for partial small bowel obstruction. Patient will have her diet advanced today.
--- NOTE | 2021-02-21 12:41 | P.PN ---
Subjective Progress Note Date: 02/21/21 History of presenting illness: Patient is a very pleasant 80-year-old female with a past medical history of CAD, hypertension, hyperlipidemia, atrial fibrillation on Xarelto, type II zde-frxdqyv-bcofrrjrv diabetes mellitus, GERD, and chronic anemia. She presente d to the emergency department with a chief complaint of abdominal pain. Patient reports this pain began around 11 PM last night and was felt throughout abdomen and described as sharp and cramping in nature. Patient reports this pain continued and became significantly worse so she came to the emergency department for evaluation. Patient was seen and fully evaluated in the emergency department. Chest x-ray was completed negative for acute cardiopulmonary process. Abdominal x-ray/KUB was positive for gas fluid levels within distended small bowel in the mid to upper abdomen suggestive of a small bowel obstruction versus severe ileus. CT abdomen and pelvis then completed confirming partial distal small bowel obstruction. Patient admitted under our services with consultation to general surgery. Patient underwent small bowel resection completed by Dr. Bassett on 02/19/21. Physical exam: 02/21/21: Postoperative day 2. Patient seen and fully evaluated at the bedside. She appears to be feeling much better this morning. Patient removed her NG tube last night while sleeping. Discussed with Dr. Bassett and was instructed to leave NG tube out and place patient on a full liquid diet. Patient reports abdominal pain better controlled since changing pain medication. She denies any further episodes of nausea and has not had any episodes of vomiting. Chest x- ray completed secondary to development of a cough, showing moderate CHF. We will discontinue IV fluids at this time and monitor output and respiratory status closely. Postsurgical dressing intact with abdominal binder, no evidence of bleeding at this time. Patient denies having any headache, lightheadedness, dizziness, chills, diaphoresis, chest pain, palpitations, shortness of breath, or episodes of vomiting. General: non toxic, no distress, appears at stated age Derm: warm, dry Head: atraumatic, normocephalic, symmetric Eyes: EOMI, no lid lag, anicteric sclera Nose/Mouth: no lip lesion, mucus membranes moist. Cardiovascular: S1-S2 normal with regular rate and rhythm. No murmurs, gallops, or rubs noted. Posterior tibial pulses palpated bilaterally. Cap refill less than 2 seconds. Lungs: respirations even, regular, and unlabored on room air. Lungs clear to auscultation bilaterally. No wheezes, rhonchi, or rales noted. No accessory muscle use. Abdominal: Soft. Bowel sounds present. Postsurgical dressing intact with abdominal binder, no evidence of bleeding at this time. Ext: No gross muscle atrophy, no edema, no contractures Neuro: CN II-XI grossly intact, no focal neuro deficits Psych: Alert, oriented, appropriate affect Assessment and Plan of care: Abdominal pain with distal small bowel obstruction -Abdominal x-ray/KUB was positive for gas fluid levels within distended small bowel in the mid to upper abdomen suggestive of a small bowel obstruction versus severe ileus. -CT abdomen and pelvis then completed confirming partial distal small bowel obstruction. -Pt removed NG tube last night while sleeping. Discussed with Dr. Bassett and was instructed to leave NG tube out and place patient on a full liquid diet. -Discontinue IV fluids secondary to findings of CHF -General surgery following, patient postoperative day 2 of small bowel resection completed by Dr. Bassett on 02/19/21. -Xarelto on hold until cleared by General Surgery. Subcutaneous heparin per DVT prophylaxis. Hypertension -Monitor vital signs and continue daily medication management with hydralazine, lisinopril, and metoprolol. Paroxysmal Atrial fibrillation -Xarelto on hold until cleared by General Surgery. -DVT prophylaxis with heparin Hyperlipidemia -Continue daily home medication regimen with [id number] mg nightly. CODE STATUS: Full code DVT prophylaxis: Heparin Discussed with: Patient, RN, and patient's son Anticipated discharge date: Clinical course to determine. Anticipated discharge place: Home A total of 45 minutes was spent on the care of this complex patient more than 50% of the time was spent in counseling and care coordination. Objective - Vital Signs Vital signs: Vital Signs Temp 98.8 F 02/21/21 07:52 Pulse 79 02/21/21 07:52 Resp 16 02/21/21 07:52 BP 148/67 02/21/21 07:52 Pulse Ox 97 02/21/21 07:52 Intake & Output 02/20/21 02/21/21 02/21/21 18:59 06:59 18:59 Output Total 0 975 Balance 0 -975 Output: Gastric Drainage 0 Urine 975 Other: Voiding Method Indwelling Catheter Indwelling Catheter - Labs CBC & Chem 7: 02/21/21 08:22 02/21/21 08:22 Labs: Abnormal Lab Results - Last 24 Hours (Table) 02/20/21 02/20/21 02/20/21 Range/Units 11:46 16:44 20:04 RBC (3.80-5.40) m/uL Hgb (11.4-16.0) gm/dL Hct (34.0-46.0) % MCV (80.0-100.0) fL RDW (11.5-15.5) % Chloride (98-107) mmol/L POC Glucose (mg/dL) 166 H 195 H 122 H (75-99) mg/dL Total Protein (6.3-8.2) g/dL Albumin (3.5-5.0) g/dL 02/21/21 02/21/21 02/21/21 Range/Units 07:10 08:22 08:22 RBC 3.44 L (3.80-5.40) m/uL Hgb 8.6 L (11.4-16.0) gm/dL Hct 26.8 L (34.0-46.0) % MCV 77.8 L (80.0-100.0) fL RDW 18.4 H (11.5-15.5) % Chloride 108 H (98-107) mmol/L POC Glucose (mg/dL) 105 H (75-99) mg/dL Total Protein 5.2 L (6.3-8.2) g/dL Albumin 2.8 L (3.5-5.0) g/dL
[2021-02-21 16:40] LABS: Glucose,Whole Blood 109 mg/dL (75-99)
[2021-02-21] MEDS: ATORVASTATIN 40 MG TAB PO SCH (20:23)
[2021-02-21] MEDS: lisinopriL 20 MG TAB PO SCH (20:23)
[2021-02-21 21:02] LABS: Glucose,Whole Blood 96 mg/dL (75-99)
[2021-02-22] MEDS: MORPHINE SULFATE 2 MG/ML SYRINGE IV PRN ×2 (03:25→08:37)
[2021-02-22] MEDS: guaiFENesin SYRUP 100MG/5ML 200 MG/10 ML CUP NG-TUBE SCH ×4 (05:25→23:14)
[2021-02-22 07:18] LABS: Glucose,Whole Blood 85 mg/dL (75-99)
[2021-02-22 08:19] LABS: Anisocytosis Slight; HCT 30.9 % (34.0-46.0); HGB 9.5 gm/dL (11.4-16.0); Hypochromasia Marked; MCH 23.9 pg (25.0-35.0); MCHC 30.6 g/dL (31.0-37.0); MCV 78.1 fL (80.0-100.0); Mean Platelet Volume 7.1; Microcytosis Slight; Platelet Count 367 k/uL (150-450); RBC 3.95 m/uL (3.80-5.40); RDW 17.8 % (11.5-15.5); WBC 10.5 k/uL (3.8-10.6)
[2021-02-22 08:31] LABS: African American GFR (CKD) >90 (>60 ml/min/1.73 sqM); Anion Gap 7 mmol/L; Blood Urea Nitrogen 12 mg/dL (7-17); Calcium 8.6 mg/dL (8.4-10.2); Carbon Dioxide 25 mmol/L (22-30); Chloride 107 mmol/L (98-107); Glucose 110 mg/dL (74-99); Magnesium 1.6 mg/dL (1.6-2.3); Non-African American GFR(CKD) 84 (>60 ml/min/1.73 sqM); Sodium 139 mmol/L (137-145)
[2021-02-22] MEDS: hydrALAZINE HCL 50 MG TAB PO SCH ×3 (08:36→16:56)
[2021-02-22] MEDS: DOCUSATE 100 MG CAP PO SCH ×2 (08:36→19:45)
[2021-02-22] MEDS: METOPROLOL TARTRATE 50 MG TAB PO SCH ×2 (08:36→19:44)
[2021-02-22] MEDS: HEPARIN SODIUM,PORCINE/PF 5,000 UNIT/0.5 ML SYRINGE SQ SCH ×3 (08:37→23:14)
--- NOTE | 2021-02-22 11:14 | P.PN ---
Subjective Progress Note Date: 02/22/21 History of presenting illness: Patient is a very pleasant 80-year-old female with a past medical history of CAD, hypertension, hyperlipidemia, atrial fibrillation on Xarelto, type II [id number] diabetes mellitus, GERD, and chronic anemia. She presente d to the emergency department with a chief complaint of abdominal pain. Patient reports this pain began around 11 PM last night and was felt throughout abdomen and described as sharp and cramping in nature. Patient reports this pain continued and became significantly worse so she came to the emergency department for evaluation. Patient was seen and fully evaluated in the emergency department. Chest x-ray was completed negative for acute cardiopulmonary process. Abdominal x-ray/KUB was positive for gas fluid levels within distended small bowel in the mid to upper abdomen suggestive of a small bowel obstruction versus severe ileus. CT abdomen and pelvis then completed confirming partial distal small bowel obstruction. Patient admitted under our services with consultation to general surgery. Patient underwent small bowel resection completed by Dr. Bassett on 02/19/21. Physical exam: 02/21/21: Postoperative day 3. Patient seen and fully evaluated at the bedside. She appears to be doing well. She was started on a full liquid diet yesterday and has tolerated without any episodes of nausea or vomiting. She reports that her cough has also subsided and states she has been using incentive spirometry as instructed. She states that her post-operative pain has been controlled and postsurgical dressing remains intact with abdominal binder, no evidence of bleeding or infection. Patient denies having any headache, lightheadedness, dizziness, chills, diaphoresis, chest pain, palpitations, shortness of breath, nausea, or vomiting. Discussed plan with patient and RN and encouraged patient to get up to chair today and possibly take a small walk to assist with getting bowels to move. Patient denies passing any flatus or having bowel movement. Bowel sounds hypoactive. General: non toxic, no distress, appears at stated age Derm: warm, dry Head: atraumatic, normocephalic, symmetric Eyes: EOMI, no lid lag, anicteric sclera Nose/Mouth: no lip lesion, mucus membranes moist. Cardiovascular: S1-S2 normal with regular rate and rhythm. No murmurs, gallops, or rubs noted. Posterior tibial pulses palpated bilaterally. Cap refill less than 2 seconds. Lungs: respirations even, regular, and unlabored on room air. Lungs clear to auscultation bilaterally. No wheezes, rhonchi, or rales noted. No accessory muscle use. Abdominal: Soft. Bowel sounds present. Postsurgical dressing intact with abdominal binder, no evidence of bleeding at this time. Ext: No gross muscle atrophy, no edema, no contractures Neuro: CN II-XI grossly intact, no focal neuro deficits Psych: Alert, oriented, appropriate affect Assessment and Plan of care: Abdominal pain with distal small bowel obstruction -Abdominal x-ray/KUB was positive for gas fluid levels within distended small bowel in the mid to upper abdomen suggestive of a small bowel obstruction versus severe ileus. -CT abdomen and pelvis then completed confirming partial distal small bowel obstruction. -Continue full liquid diet and advance as recommended by general surgery -Postoperative day 3 from small bowel resection completed by Dr. Bassett on 02/19/21. -Xarelto on hold until cleared to resume by General Surgery. Subcutaneous heparin per DVT prophylaxis. Hypertension -Monitor vital signs and continue daily medication management with hydralazine, lisinopril, and metoprolol. Paroxysmal Atrial fibrillation -Xarelto on hold until cleared to resume by General Surgery. -DVT prophylaxis with heparin Hyperlipidemia -Continue daily home medication regimen with [id number] mg nightly. CODE STATUS: Full code DVT prophylaxis: Heparin Discussed with: Patient and RN Anticipated discharge date: Clinical course to determine. Anticipated discharge place: Home with homecare. A total of 45 minutes was spent on the care of this complex patient more than 50% of the time was spent in counseling and care coordination. Objective - Vital Signs Vital signs: Vital Signs Temp 98.4 F 02/22/21 08:00 Pulse 96 02/22/21 08:00 Resp 18 02/22/21 08:00 BP 161/62 02/22/21 08:00 Pulse Ox 91 L 02/22/21 08:00 Intake & Output 02/21/21 02/22/21 02/22/21 18:59 06:59 18:59 Intake Total 650 200 Output Total 400 1200 Balance 250 -1200 200 Intake: Intake, IV Titration 500 Amount ACETAMINOPHEN IV (For NPO 100 ) 1,000 mg In Empty Bag 1 bag @ 400 mls/hr IVPB Q6HR [facility] Rx#:[id number] Sodium Chloride 0.9% 1, 400 000 ml @ 50 mls/hr IV . Q20H [facility] Rx#:[id number] Oral 150 200 Output: Urine 400 1200 Other: Voiding Method Indwelling Catheter Indwelling Catheter Indwelling Catheter - Labs CBC & Chem 7: 02/22/21 08:01 02/22/21 08:01 Labs: Abnormal Lab Results - Last 24 Hours (Table) 02/21/21 02/21/21 02/22/21 Range/Units 11:31 16:38 08:01 Hgb 9.5 L (11.4-16.0) gm/dL Hct 30.9 L (34.0-46.0) % MCV 78.1 L (80.0-100.0) fL MCH 23.9 L (25.0-35.0) pg MCHC 30.6 L (31.0-37.0) g/dL RDW 17.8 H (11.5-15.5) % Glucose (74-99) mg/dL POC Glucose (mg/dL) 100 H 109 H (75-99) mg/dL 02/22/21 Range/Units 08:01 Hgb (11.4-16.0) gm/dL Hct (34.0-46.0) % MCV (80.0-100.0) fL MCH (25.0-35.0) pg MCHC (31.0-37.0) g/dL RDW (11.5-15.5) % Glucose 110 H (74-99) mg/dL POC Glucose (mg/dL) (75-99) mg/dL
--- NOTE | 2021-02-22 11:22 | P.PN ---
Subjective Progress Note Date: 02/22/21 CHIEF COMPLAINT: Partial small bowel obstruction HISTORY OF PRESENT ILLNESS: Patient is status post small bowel resection. Postop day #3. Her pain is controlled. She did require Dilaudid this morning. She is on a full liquid diet. Denies any nausea or vomiting. Denies passing gas or having a bowel movement yet. Alfaro catheter is scheduled to be removed today. Afebrile. WBC 10.5 hemoglobin 9.5 creatinine 0.66 PHYSICAL EXAM: VITAL SIGNS: Reviewed. GENERAL: Well-developed in no acute distress. HEENT: No sclera icterus. Extraocular movements grossly intact. Moist buccal mucosa. Head is atraumatic, normocephalic. ABDOMEN: Soft. Nondistended. Incision site had minimal bleeding in the middle of the incision. No erythema noted. NEUROLOGIC: Alert and oriented. Cranial nerves II through XII grossly intact. ASSESSMENT: 1. Partial small bowel obstruction status post small bowel resection PLAN: -Continue full liquid diet -Add Spangler as needed for pain -Encouraged patient to use incentive spirometer -Encouraged patient to ambulate -GI prophylaxis Protonix and DVT prophylaxis subcu heparin Physician Society Reporter note has been reviewed by physician. Signing provider agrees with the documented findings, assessment, and plan of care. Objective - Vital Signs Vital signs: Vital Signs Temp 98.4 F 02/22/21 08:00 Pulse 96 02/22/21 08:00 Resp 18 02/22/21 08:00 BP 161/62 02/22/21 08:00 Pulse Ox 91 L 02/22/21 08:00 Intake & Output 02/21/21 02/22/21 02/22/21 18:59 06:59 18:59 Intake Total 650 200 Output Total 400 1200 Balance 250 -1200 200 Intake: Intake, IV Titration 500 Amount ACETAMINOPHEN IV (For NPO 100 ) 1,000 mg In Empty Bag 1 bag @ 400 mls/hr IVPB Q6HR [facility] Rx#:[id number] Sodium Chloride 0.9% 1, 400 000 ml @ 50 mls/hr IV . Q20H [facility] Rx#:[id number] Oral 150 200 Output: Urine 400 1200 Other: Voiding Method Indwelling Catheter Indwelling Catheter Indwelling Catheter - Labs CBC & Chem 7: 02/22/21 08:01 02/22/21 08:01 Labs: Abnormal Lab Results - Last 24 Hours (Table) 02/21/21 02/21/21 02/22/21 Range/Units 11:31 16:38 08:01 Hgb 9.5 L (11.4-16.0) gm/dL Hct 30.9 L (34.0-46.0) % MCV 78.1 L (80.0-100.0) fL MCH 23.9 L (25.0-35.0) pg MCHC 30.6 L (31.0-37.0) g/dL RDW 17.8 H (11.5-15.5) % Glucose (74-99) mg/dL POC Glucose (mg/dL) 100 H 109 H (75-99) mg/dL 02/22/21 Range/Units 08:01 Hgb (11.4-16.0) gm/dL Hct (34.0-46.0) % MCV (80.0-100.0) fL MCH (25.0-35.0) pg MCHC (31.0-37.0) g/dL RDW (11.5-15.5) % Glucose 110 H (74-99) mg/dL POC Glucose (mg/dL) (75-99) mg/dL
[2021-02-22 11:32] LABS: Glucose,Whole Blood 106 mg/dL (75-99)
[2021-02-22] MEDS: HYDROcodone/APAP 5-325MG 1 EACH TAB PO PRN ×3 (11:38→23:16)
[2021-02-22] MEDS: PANTOPRAZOLE 40 MG TABLET PO SCH (11:39)
[2021-02-22 16:51] LABS: Glucose,Whole Blood 104 mg/dL (75-99)
[2021-02-22] MEDS: bisacodyL 10 MG SUPP RECTAL SCH (16:56)
[2021-02-22] MEDS: ATORVASTATIN 40 MG TAB PO SCH (19:44)
[2021-02-22] MEDS: lisinopriL 20 MG TAB PO SCH (19:44)
[2021-02-22 20:24] LABS: Glucose,Whole Blood 104 mg/dL (75-99)
[2021-02-23] MEDS: guaiFENesin SYRUP 100MG/5ML 200 MG/10 ML CUP NG-TUBE SCH ×4 (05:16→22:57)
[2021-02-23] MEDS: ONDANSETRON 4 MG/2 ML VIAL IVP PRN (05:45)
[2021-02-23] MEDS ORDERED: LABETALOL 200 MG TAB PO STA (06:37)
[2021-02-23] MEDS: METOPROLOL TARTRATE 25 MG TAB PO SCH ×2 (07:19→21:17)
[2021-02-23] MEDS: HYDROcodone/APAP 5-325MG 1 EACH TAB PO PRN ×4 (07:19→21:18)
[2021-02-23] MEDS: PANTOPRAZOLE 40 MG TABLET PO SCH (07:19)
[2021-02-23] MEDS: hydrALAZINE HCL 50 MG TAB PO SCH ×3 (07:20→16:57)
[2021-02-23] MEDS: DOCUSATE 100 MG CAP PO SCH ×2 (07:20→21:17)
[2021-02-23] MEDS: HEPARIN SODIUM,PORCINE/PF 5,000 UNIT/0.5 ML SYRINGE SQ SCH (07:20)
[2021-02-23] MEDS: bisacodyL 10 MG SUPP RECTAL SCH (07:20)
[2021-02-23 07:26] LABS: Glucose,Whole Blood 101 mg/dL (75-99)
--- NOTE | 2021-02-23 10:07 | P.CRDCN ---
History of Present Illness Consult date: 02/23/21 History of present illness: HISTORY OF PRESENT ILLNESS: This is a 80-year-old female with a past medical history significant for atrial fibrillation, CVA, diabetes mellitus, GERD, hypertension, hyperlipidemia, and diverticulosis. Patient follows in the office with Dr. Carias. We have been asked to see the patient in consultation for atrial fibrillation with RVR. Patient examined at the bedside. Patient underwent small bowel resection with Dr. Bassett on 02/19/2021. Patient is currently in atrial fibrillation with a heart rate in the 90s, however this morning her heart rate was in the 120-130s. She takes metoprolol 50 mg twice a day. Patient is also on anticoagulation with Xarelto which is been held due to surgery. Patient denies any chest pain or pressure. She denies shortness of breath. She denies palpitations. Telemetry reveals atrial fibrillation with controlled ventricular rate Chest xray findings most consistent with development of moderate CHF Laboratory data: WBC 10.5. Hemoglobin 9.5. Platelet count 367. Sodium 139. Potassium 4.0. BUN 12. Creatinine 0.66. Magnesium 1.6. Current home cardiac medications include Lipitor 40 mg daily, aspirin 81 mg daily, lisinopril 20 mg at night, hydralazine 50 mg 3 times a day, Xarelto 20 mg daily, and metoprolol 50 mg twice a day Most recent echocardiogram obtained in May 2020 revealed ejection fraction 60-65%, mild aortic regurgitation, mild mitral stenosis, mild tricuspid regurgitation, and mild pulmonary hypertension REVIEW OF SYSTEMS: At the time of my exam: CONSTITUTIONAL: Denies fever or chills. HEENT: Denies blurred vision, vision changes, or eye pain. Denies hemoptysis CARDIOVASCULAR: Denies chest pain. Denies orthopnea. Denies PND. Denies palpitations RESPIRATORY: Denies shortness of breath. GASTROINTESTINAL: Denies abdominal pain. Denies nausea or vomiting. HEMATOLOGIC: Denies bleeding disorders. GENITOURINARY: Denies any blood in urine. SKIN: Denies pruitis. Denies rash. PHYSICAL EXAM: VITAL SIGNS: Reviewed. GENERAL: Well-developed in no acute distress. HEENT: Head is normocephalic. Pupils are equal, round. Sclerae anicteric. Mucous membranes of the mouth are moist. Neck supple. No JVD or thyromegaly LUNGS: Respirations even and unlabored. Lungs essentially clear to auscultation bilaterally. HEART: Irregular rate and rhythm. S1 and S2 heard. ABDOMEN: Soft. Nondistended. Appropriate surgical tenderness EXTREMITIES: Normal range of motion. No clubbing or cyanosis. Peripheral pulses intact. No lower extremity edema NEUROLOGIC: Awake and alert. Oriented x 3. ASSESSMENT: Paroxysmal atrial fibrillation with RVR, on anticoagulation with Xarelto Small bowel obstruction, status post small bowel resection Hypertension Hyperlipidemia CVA GERD Diabetes mellitus PLAN: Continue postoperative surgical management per Dr. Bassett Resume Xarelto tonight. Spoke with Dr. Bassett who is agreeable to resuming Xarelto tonight Increase metoprolol to 75mg BID Continue telemetry monitoring Further recommendations pending patient course Nurse practitioner note has been reviewed by physician. Signing provider agrees with the documented findings, assessment, and plan of care. Past Medical History Past Medical History: Atrial Fibrillation, Cancer, CVA/TIA, Diabetes Mellitus, GERD/Reflux, Hyperlipidemia, Hypertension, Osteoarthritis (OA), Syncope Additional Past Medical History / Comment(s): OSteoporosis, hiatal hernia, diverticulosis, polyps, cervical cancer, DJD, History of Any Multi-Drug Resistant Organisms: None Reported Past Surgical History: Back Surgery, Heart Catheterization, Hysterectomy Additional Past Surgical History / Comment(s): EGD, Colonoscopy, bilateral cataract removed, "fatty tumor" removed from her back. Past Anesthesia/Blood Transfusion Reactions: No Reported Reaction, Motion Sickness Additional Past Anesthesia/Blood Transfusion Reaction / Comment(s): Pt has never recieved blood. SON "CODED" POST HIP REPLACEMENT Past Psychological History: Anxiety Additional Psychological History / Comment(s): Pt lives alone. 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 She uses no assistive devices or home care. She drives. Smoking Status: Never smoker Past Alcohol Use History: None Reported Additional Past Alcohol Use History / Comment(s): Pt states she smoked for about 52 yrs 1 ppd and eventually up to 1 1/2 ppd but quit in 2008. Past Drug Use History: None Reported - Past Family History Father Family Medical History: Myocardial Infarction (TN) Additional Family Medical History / Comment(s): Father of a [place] at age 76yrs. Mother Family Medical History: CVA/TIA Additional Family Medical History / Comment(s): Mother had a CVA at age 88yrs. She at age 92yrs. Medications and Allergies Home Medications Medication Instructions Recorded Confirmed Type metFORMIN HCL [Glucophage] 500 mg PO BID 07/02/15 02/18/21 History Aspirin 81 mg PO DAILY #1 chewable 07/04/15 02/18/21 Rx Cinnamon Bark [Cinnamon] 500 mg PO BID 07/15/15 02/18/21 History Vits A,C,E/Lutein/Minerals 1 tab PO BID 07/15/15 02/18/21 History [Ocuvite with Lutein Tablet] Atorvastatin [Lipitor] 40 mg PO HS 04/05/17 02/18/21 History lisinopriL [Zestril] 20 mg PO HS 04/14/17 02/18/21 History Rivaroxaban [Xarelto] 20 mg PO AC-SUPPER 01/22/19 02/18/21 History Omeprazole 20 mg PO HS 09/10/19 02/18/21 History Metoprolol Tartrate [Lopressor] 50 mg PO BID 10/20/20 02/18/21 History hydrALAZINE HCL [Apresoline] 50 mg PO AC-TID #0 10/21/20 02/18/21 Rx Cholecalciferol [Vitamin D3 (25 50 mcg PO DAILY 02/18/21 02/18/21 History Mcg = 1000 Iu)] Allergies Allergy/AdvReac Type Severity Reaction Status Date / Time amlodipine Allergy Anaphylaxis Verified 02/18/21 08:33 isosorbide mononitrate Allergy Rash/Hives Verified 02/18/21 08:33 [From Imdur] Physical Exam Vitals: Vital Signs Temp Pulse Resp BP Pulse Ox 02/23/21 07:57 97.7 F 79 18 166/61 97 02/23/21 00:38 98.9 F 72 14 145/57 93 L 02/22/21 19:02 98.9 F 82 14 172/73 92 L 02/22/21 14:46 98 F 83 18 175/68 98 Intake and Output 02/22/21 02/23/21 02/23/21 22:59 06:59 14:59 Other: Voiding Method Toilet Bedside Commode # Voids 1 # Bowel Movements 1 Results 02/22/21 08:01 02/22/21 08:01 Current Medications Generic Name Dose Route Start Last Admin Trade Name Freq PRN Reason Stop Dose Admin Hydrocodone Bitart/Acetaminophen 1 each 02/22/21 08:52 02/23/21 07:19 Hydrocodone/Apap 5-325mg 1 Each Tab PO 1 each Q4HR PRN Administration Pain Atorvastatin Calcium 40 mg 02/18/21 21:00 02/22/21 19:44 Atorvastatin 40 Mg Tab PO 40 mg HS JOHN Administration Bisacodyl 10 mg 02/22/21 15:00 02/23/21 07:20 Bisacodyl 10 Mg Supp RECTAL Not Given DAILY JOHN Docusate Sodium 100 mg 02/19/21 21:00 02/23/21 07:20 Docusate 100 Mg Cap PO 100 mg BID JOHN Administration Guaifenesin 200 mg 02/20/21 18:00 02/23/21 05:16 Guaifenesin Syrup 100mg/5ml 200 Mg/10 Ml Cup NG-TUBE Not Given Q6H JOHN Heparin Sodium (Porcine) 5,000 unit 02/18/21 16:00 02/23/21 07:20 Heparin Sodium,Porcine/Pf 5,000 Unit/0.5 Ml Syringe SQ 5,000 unit Q8HR JOHN Administration Hydralazine HCl 50 mg 02/18/21 17:30 02/23/21 07:20 Hydralazine Hcl 50 Mg Tab PO 50 mg AC-TID JOHN Administration Hydromorphone HCl 0.5 mg 02/20/21 16:43 02/20/21 22:31 Hydromorphone 0.5 Mg/0.5 Ml Syringe IVP 0.5 mg Q3HR PRN Administration Pain Lisinopril 20 mg 02/18/21 21:00 02/22/21 19:44 Lisinopril 20 Mg Tab PO 20 mg HS JOHN Administration Melatonin 3 mg 02/18/21 21:00 Melatonin 3 Mg Tablet PO HS PRN Insomnia Metoclopramide HCl 10 mg 02/19/21 15:59 Metoclopramide 5 Mg/Ml 2 Ml Vial IVP Q6H PRN Nausea And Vomiting Metoprolol Tartrate 75 mg 02/23/21 09:00 02/23/21 07:19 Metoprolol Tartrate 25 Mg Tab PO 75 mg BID JOHN Administration Morphine Sulfate 2 mg 02/18/21 08:28 02/22/21 08:37 Morphine Sulfate 2 Mg/Ml Syringe IV 2 mg Q4HR PRN Administration Moderate Pain Naloxone HCl 0.2 mg 02/19/21 15:59 Naloxone 0.4 Mg/Ml 1 Ml Vial IV Q2M PRN Opioid Reversal Ondansetron HCl 4 mg 02/18/21 09:02 02/23/21 05:45 Ondansetron 4 Mg/2 Ml Vial IVP 4 mg Q6H PRN Administration Nausea Pantoprazole Sodium 40 mg 02/22/21 11:30 02/23/21 07:19 Pantoprazole 40 Mg Tablet PO 40 mg AC-BRKFST JOHN Administration Intake and Output 02/22/21 02/23/21 02/23/21 22:59 06:59 14:59 Other: Voiding Method Toilet Bedside Commode # Voids 1 # Bowel Movements 1 02/22/21 08:01 02/22/21 08:01
[2021-02-23 11:23] LABS: Glucose,Whole Blood 121 mg/dL (75-99)
[2021-02-23 11:39] LABS: HCT 30.4 % (37.2-46.3); MCH 23.9 pg (27.0-32.0); MCHC 29.6 g/dL (32.0-37.0); MCV 80.6 fL (80.0-97.0); Mean Platelet Volume 11.1 fL (9.5-12.2); Platelet Count 461 X 10*3/uL (140-440); RBC 3.77 X 10*6/uL (4.10-5.20); WBC 9.74 X 10*3/uL (4.50-10.00)
--- NOTE | 2021-02-23 11:39 | P.PN ---
Subjective Progress Note Date: 02/23/21 CHIEF COMPLAINT: Partial small bowel obstruction HISTORY OF PRESENT ILLNESS: Patient is status post small bowel resection. Postop day #4. Her pain is controlled. She did have a bowel movement and is passing gas. Denies any nausea or vomiting. Denies passing gas or having a bowel movement yet. Patient had episode of atrial fibrillation with rapid ventricular response. She has been evaluated by cardiology. Afebrile. No new labs for today Patient seen and examined with Dr. kumar PHYSICAL EXAM: VITAL SIGNS: Reviewed. GENERAL: Well-developed in no acute distress. HEENT: No sclera icterus. Extraocular movements grossly intact. Moist buccal mucosa. Head is atraumatic, normocephalic. ABDOMEN: Soft. Nondistended. Incisional dressing clean dry and intact NEUROLOGIC: Alert and oriented. Cranial nerves II through XII grossly intact. ASSESSMENT: 1. Partial small bowel obstruction status post small bowel resection PLAN: -From surgical standpoint patient is stable for discharge -Xarelto can be restarted from surgical standpoint -Continue full liquid diet -Continue pain medication as needed -Encouraged patient to use incentive spirometer -Encouraged patient to ambulate -GI prophylaxis Protonix Physician Diagnostic Technologist note has been reviewed by physician. Signing provider agrees with the documented findings, assessment, and plan of care. Objective - Vital Signs Vital signs: Vital Signs Temp 97.7 F 02/23/21 07:57 Pulse 79 02/23/21 07:57 Resp 18 02/23/21 07:57 BP 166/61 02/23/21 07:57 Pulse Ox 97 02/23/21 07:57 Intake & Output 02/22/21 02/23/21 02/23/21 18:59 06:59 18:59 Intake Total 600 Balance 600 Intake: Oral 600 Other: Voiding Method Indwelling Catheter Toilet Bedside Commode # Voids 1 # Bowel Movements 1 - Labs CBC & Chem 7: 02/22/21 08:01 02/22/21 08:01 Labs: Abnormal Lab Results - Last 24 Hours (Table) 02/22/21 02/22/21 02/23/21 Range/Units 16:49 20:22 07:24 POC Glucose (mg/dL) 104 H 104 H 101 H (75-99) mg/dL 02/23/21 Range/Units 11:21 POC Glucose (mg/dL) 121 H (75-99) mg/dL
[2021-02-23 13:33] LABS: African American GFR (CKD) 99.8 (60.0-200.0); Anion Gap 13.4 mmol/L (4.00-12.00); BUN/Creat Ratio 16.67 Ratio (12.00-20.00); Calcium 8.8 mg/dL (8.7-10.3); Carbon Dioxide 23.6 mmol/L (21.6-31.8); Magnesium 1.7 mg/dL (1.5-2.4); Non-African American GFR(CKD) 86.1 (60.0-200.0); Potassium 4.2 mmol/L (3.5-5.5)
--- NOTE | 2021-02-23 15:48 | P.PN ---
Subjective Progress Note Date: 02/23/21 Principal diagnosis: bowel obstruction Patient is currently feeling better, she is passing gas and had a bowel movement yesterday. No significant abdominal pain, no chest pain or shortness of breath, no nausea or vomiting, no fevers or chills. On tele her HR was in the 120s last night, currently below 100. Objective - Vital Signs Vital signs: Vital Signs Temp 97.9 F 02/23/21 14:00 Pulse 77 02/23/21 14:00 Resp 16 02/23/21 14:00 BP 113/56 02/23/21 14:00 Pulse Ox 98 02/23/21 14:00 Intake & Output 02/22/21 02/23/21 02/23/21 18:59 06:59 18:59 Intake Total 600 Balance 600 Intake: Oral 600 Other: Voiding Method Indwelling Catheter Toilet Bedside Commode # Voids 1 # Bowel Movements 1 - Exam Constitutional: No acute distress, conversant, pleasant Eyes:Anicteric sclerae, moist conjunctiva, no lid-lag, PERRLA, ENMT: Oropharynx clear, no erythema, exudates Neck: Supple, FROM, no masses, or JVD, No carotid bruits, No thyromegaly Lungs: Clear to auscultation, Clear to percussion, Normal respiratory effort, no accessory muscle use Cardiovascular: Heart regular in rate and rhythm, No murmurs, gallops, or rubs, No peripheral edema Abdominal: Soft, Nontender, no guarding, rebound or rigidity, Normoactive bowel sounds, No hepatomegaly, No splenomegaly, No palpable mass Skin: Normal temperature, tone, texture, turgor, no induration, No subcutaneous nodules, No rash, lesions, No ulcers Extremities: No digital cyanosis, No clubbing, Pedal pulses intact and symmetrical, Radial pulses intact and symmetrical, No calf tenderness Psychiatric: Alert and oriented to person, place and time, appropriate affect, intact judgement Neuro: Muscles Strength 5/5 in all 4 extremities, Sensation to light touch grossly present throughout, Cranial nerves II-XII grossly intact, no focal sensory deficits - Labs CBC & Chem 7: 02/23/21 06:57 02/23/21 06:57 Labs: Abnormal Lab Results - Last 24 Hours (Table) 02/22/21 02/22/21 02/23/21 Range/Units 16:49 20:22 06:57 RBC 3.77 L (4.10-5.20) X 10*6/uL Hgb 9.0 L (12.0-15.0) g/dL Hct 30.4 L (37.2-46.3) % MCH 23.9 L (27.0-32.0) pg MCHC 29.6 L (32.0-37.0) g/dL RDW 19.0 H (11.5-14.5) % Plt Count 461 H (140-440) X 10*3/uL Anion Gap (4.00-12.00) mmol/L POC Glucose (mg/dL) 104 H 104 H (75-99) mg/dL 02/23/21 02/23/21 02/23/21 Range/Units 06:57 07:24 11:21 RBC (4.10-5.20) X 10*6/uL Hgb (12.0-15.0) g/dL Hct (37.2-46.3) % MCH (27.0-32.0) pg MCHC (32.0-37.0) g/dL RDW (11.5-14.5) % Plt Count (140-440) X 10*3/uL Anion Gap 13.40 H (4.00-12.00) mmol/L POC Glucose (mg/dL) 101 H 121 H (75-99) mg/dL Assessment and Plan Plan: Abdominal pain with distal small bowel obstruction -s/p small bowel resection completed by Dr. Bassett on 02/19/21. -Management per surgery Hypertension -Stable continue hydralazine, lisinopril, and metoprolol. Paroxysmal Atrial fibrillation -Continue Xarelto -Increase metoprolol to 75mg bid due to RVR Hyperlipidemia -Continue atorvastatin 40 mg nightly.
[2021-02-23 16:23] LABS: Glucose,Whole Blood 107 mg/dL (75-99)
[2021-02-23] MEDS ORDERED: RIVAROXABAN 20 MG TAB PO SCH (17:30)
[2021-02-23 20:39] LABS: Glucose,Whole Blood 119 mg/dL (75-99)
[2021-02-23] MEDS: lisinopriL 20 MG TAB PO SCH (21:18)
[2021-02-23] MEDS: ATORVASTATIN 40 MG TAB PO SCH (21:18)
[2021-02-24] MEDS: HYDROcodone/APAP 5-325MG 1 EACH TAB PO PRN (03:52)
[2021-02-24] MEDS: guaiFENesin SYRUP 100MG/5ML 200 MG/10 ML CUP NG-TUBE SCH ×2 (05:18→12:38)
[2021-02-24 07:12] LABS: Glucose,Whole Blood 95 mg/dL (75-99)
[2021-02-24 07:39] LABS: Anisocytosis Slight; Basophils % (A) 0 %; Eosinophils # (A) 0.2 k/uL (0-0.7); Eosinophils % (A) 2 %; HCT 27.5 % (34.0-46.0); HGB 8.3 gm/dL (11.4-16.0); Hypochromasia Marked; Lymphocytes # (A) 2.5 k/uL (1.0-4.8); Lymphocytes % (A) 24 %; MCH 23.9 pg (25.0-35.0); MCHC 30.1 g/dL (31.0-37.0); MCV 79.4 fL (80.0-100.0); Mean Platelet Volume 7.9; Microcytosis Slight; Monocytes # (A) 0.8 k/uL (0-1.0); Monocytes % (A) 8 %; Neutrophils # (A) 6.5 k/uL (1.3-7.7); Neutrophils % (A) 64 %; Platelet Count 433 k/uL (150-450); RBC 3.46 m/uL (3.80-5.40); WBC 10.2 k/uL (3.8-10.6)
[2021-02-24 07:49] VITALS: BP 127/53; PULSE 78; RESP 16; TEMP 98.5
[2021-02-24 07:51] LABS: ALT 12 U/L (4-34); AST 24 U/L (14-36); African American GFR (CKD) 77 (>60 ml/min/1.73 sqM); Albumin 2.6 g/dL (3.5-5.0); Albumin/Globulin Ratio 1.1; Alkaline Phosphatase 55 U/L (38-126); Anion Gap 5 mmol/L; Blood Urea Nitrogen 15 mg/dL (7-17); Calcium 8.5 mg/dL (8.4-10.2); Carbon Dioxide 28 mmol/L (22-30); Chloride 104 mmol/L (98-107); Globulin 2.4 g/dL; Glucose 91 mg/dL (74-99); Magnesium 1.6 mg/dL (1.6-2.3); Non-African American GFR(CKD) 67 (>60 ml/min/1.73 sqM); Potassium 4.4 mmol/L (3.5-5.1); Sodium 137 mmol/L (137-145); Total Bilirubin 0.4 mg/dL (0.2-1.3)
[2021-02-24] MEDS: hydrALAZINE HCL 50 MG TAB PO SCH ×2 (08:05→12:44)
[2021-02-24] MEDS: PANTOPRAZOLE 40 MG TABLET PO SCH (08:05)
[2021-02-24] MEDS: DOCUSATE 100 MG CAP PO SCH (08:05)
[2021-02-24] MEDS: METOPROLOL TARTRATE 25 MG TAB PO SCH (08:05)
[2021-02-24] MEDS: bisacodyL 10 MG SUPP RECTAL SCH (10:01)
--- NOTE | 2021-02-24 10:35 | P.PN ---
Subjective Progress Note Date: 02/24/21 CHIEF COMPLAINT: Partial small bowel obstruction HISTORY OF PRESENT ILLNESS: Patient is status post small bowel resection. Postop day #5. Her pain is controlled. She did have a bowel movement a couple days ago. And she is passing gas. Denies any nausea or vomiting. Patient had episode of atrial fibrillation with rapid ventricular response. She has been evaluated by cardiology and it just at the metoprolol. She is tolerating full liquid diet. Afebrile. WBC 10.2 hemoglobin 8.3 platelets 433 Patient seen and examined with Dr. kumar PHYSICAL EXAM: VITAL SIGNS: Reviewed. GENERAL: Well-developed in no acute distress. HEENT: No sclera icterus. Extraocular movements grossly intact. Moist buccal mucosa. Head is atraumatic, normocephalic. ABDOMEN: Soft. Nondistended. Incisional dressing clean dry and intact NEUROLOGIC: Alert and oriented. Cranial nerves II through XII grossly intact. ASSESSMENT: 1. Partial small bowel obstruction status post small bowel resection PLAN: -From surgical standpoint patient is stable for discharge -Advance diet to low fiber -Continue pain medication as needed -Encouraged patient to use incentive spirometer -Encouraged patient to ambulate -GI prophylaxis Protonix -DVT prophylaxis Xarelto Physician Tie Man note has been reviewed by physician. Signing provider agrees with the documented findings, assessment, and plan of care. Objective - Vital Signs Vital signs: Vital Signs Temp 98.5 F 02/24/21 07:48 Pulse 78 02/24/21 07:48 Resp 16 02/24/21 07:48 BP 127/53 02/24/21 07:48 Pulse Ox 91 L 02/24/21 07:48 Intake & Output 02/23/21 02/24/21 02/24/21 18:59 06:59 18:59 Other: Voiding Method Toilet Toilet Bedside Commode # Voids 2 - Labs CBC & Chem 7: 02/24/21 06:37 02/24/21 06:37 Labs: Abnormal Lab Results - Last 24 Hours (Table) 02/23/21 02/23/21 02/23/21 Range/Units 06:57 06:57 11: RBC 3.77 L (4.10-5.20) X 10*6/uL Hgb 9.0 L (12.0-15.0) g/dL Hct 30.4 L (37.2-46.3) % MCV (80.0-100.0) fL MCH 23.9 L (27.0-32.0) pg MCHC 29.6 L (32.0-37.0) g/dL RDW 19.0 H (11.5-14.5) % Plt Count 461 H (140-440) X 10*3/uL Anion Gap 13.40 H (4.00-12.00) mmol/L POC Glucose (mg/dL) 121 H (75-99) mg/dL Total Protein (6.3-8.2) g/dL Albumin (3.5-5.0) g/dL 02/23/21 02/23/21 02/24/21 Range/Units 16:17 20:35 06:37 RBC 3.46 L (4.10-5.20) X 10*6/uL Hgb 8.3 L (12.0-15.0) g/dL Hct 27.5 L (37.2-46.3) % MCV 79.4 L (80.0-100.0) fL MCH 23.9 L (27.0-32.0) pg MCHC 30.1 L (32.0-37.0) g/dL RDW 18.0 H (11.5-14.5) % Plt Count (140-440) X 10*3/uL Anion Gap (4.00-12.00) mmol/L POC Glucose (mg/dL) 107 H 119 H (75-99) mg/dL Total Protein (6.3-8.2) g/dL Albumin (3.5-5.0) g/dL 02/24/21 Range/Units 06:37 RBC (4.10-5.20) X 10*6/uL Hgb (12.0-15.0) g/dL Hct (37.2-46.3) % MCV (80.0-100.0) fL MCH (27.0-32.0) pg MCHC (32.0-37.0) g/dL RDW (11.5-14.5) % Plt Count (140-440) X 10*3/uL Anion Gap (4.00-12.00) mmol/L POC Glucose (mg/dL) (75-99) mg/dL Total Protein 5.0 L (6.3-8.2) g/dL Albumin 2.6 L (3.5-5.0) g/dL
[2021-02-24 12:11] LABS: Glucose,Whole Blood 114 mg/dL (75-99)
[2021-02-24 13:38] VITALS: BMI 28.3
--- NOTE | 2021-02-24 13:39 | P.PN ---
Subjective Progress Note Date: 02/24/21 HISTORY OF PRESENT ILLNESS: This is a 80-year-old female with a past medical history significant for atrial fibrillation, CVA, diabetes mellitus, GERD, hypertension, hyperlipidemia, and diverticulosis. Patient follows in the office with Dr. Carias. We have been asked to see the patient in consultation for atrial fibrillation with RVR. Patient examined at the bedside. Patient underwent small bowel resection with Dr. Bassett on 02/19/2021. Patient is currently in atrial fibrillation with a heart rate in the 90s, however this morning her heart rate was in the 120-130s. She takes metoprolol 50 mg twice a day. Patient is also on anticoagulation with Xarelto which is been held due to surgery. Patient denies any chest pain or pressure. She denies shortness of breath. She denies palpitations. Telemetry reveals atrial fibrillation with controlled ventricular rate Chest xray findings most consistent with development of moderate CHF Laboratory data: WBC 10.5. Hemoglobin 9.5. Platelet count 367. Sodium 139. Potassium 4.0. BUN 12. Creatinine 0.66. Magnesium 1.6. Current home cardiac medications include Lipitor 40 mg daily, aspirin 81 mg daily, lisinopril 20 mg at night, hydralazine 50 mg 3 times a day, Xarelto 20 mg daily, and metoprolol 50 mg twice a day Most recent echocardiogram obtained in May 2020 revealed ejection fraction 60-65%, mild aortic regurgitation, mild mitral stenosis, mild tricuspid regurgitation, and mild pulmonary hypertension 02/24/2021 Patient examined this morning at the bedside. Patient states her abdominal pain has improved. Patient's heart rate has been well controlled. She remains in atrial fibrillation. PHYSICAL EXAM: VITAL SIGNS: Reviewed. GENERAL: Well-developed in no acute distress. HEENT: Head is normocephalic. Pupils are equal, round. Sclerae anicteric. Mucous membranes of the mouth are moist. Neck supple. No JVD or thyromegaly LUNGS: Respirations even and unlabored. Lungs essentially clear to auscultation bilaterally. HEART: Irregular rate and rhythm. S1 and S2 heard. ABDOMEN: Soft. Nondistended. Appropriate surgical tenderness EXTREMITIES: Normal range of motion. No clubbing or cyanosis. Peripheral pulses intact. No lower extremity edema NEUROLOGIC: Awake and alert. Oriented x 3. ASSESSMENT: Paroxysmal atrial fibrillation with RVR, on anticoagulation with Xarelto Small bowel obstruction, status post small bowel resection Hypertension Hyperlipidemia CVA GERD Diabetes mellitus PLAN: Continue postoperative surgical management per Dr. Bassett Continue Xarelto Continue current dose of metoprolol Patient is currently stable from a cardiac standpoint. We will sign off. Patient to follow-up post discharge. Nurse practitioner note has been reviewed by physician. Signing provider agrees with the documented findings, assessment, and plan of care. Objective - Vital Signs Vital signs: Vital Signs Temp 98.5 F 02/24/21 07:48 Pulse 78 02/24/21 07:48 Resp 16 02/24/21 07:48 BP 127/53 02/24/21 07:48 Pulse Ox 91 L 02/24/21 07:48 Intake & Output 02/23/21 02/24/21 02/24/21 18:59 06:59 18:59 Weight 68.04 kg Other: Voiding Method Toilet Toilet Bedside Commode # Voids 2 - Labs CBC & Chem 7: 02/24/21 06:37 02/24/21 06:37 Labs: Abnormal Lab Results - Last 24 Hours (Table) 02/23/21 02/23/21 02/24/21 Range/Units 16:17 20:35 06:37 RBC 3.46 L (3.80-5.40) m/uL Hgb 8.3 L (11.4-16.0) gm/dL Hct 27.5 L (34.0-46.0) % MCV 79.4 L (80.0-100.0) fL MCH 23.9 L (25.0-35.0) pg MCHC 30.1 L (31.0-37.0) g/dL RDW 18.0 H (11.5-15.5) % POC Glucose (mg/dL) 107 H 119 H (75-99) mg/dL Total Protein (6.3-8.2) g/dL Albumin (3.5-5.0) g/dL 02/24/21 02/24/21 Range/Units 06:37 12:04 RBC (3.80-5.40) m/uL Hgb (11.4-16.0) gm/dL Hct (34.0-46.0) % MCV (80.0-100.0) fL MCH (25.0-35.0) pg MCHC (31.0-37.0) g/dL RDW (11.5-15.5) % POC Glucose (mg/dL) 114 H (75-99) mg/dL Total Protein 5.0 L (6.3-8.2) g/dL Albumin 2.6 L (3.5-5.0) g/dL
--- NOTE | 2021-02-24 14:40 | P.DS ---
Providers Date of admission: 02/18/21 09:35 Expected date of discharge: 02/24/21 Attending physician: Giovana Ramirez DO Consults: 02/18/21 08:30 Consult Physician Routine Consulting Provider: Wagner Bassett Consult Reason/Comments: SBO Do you want consulting provider notified?: Yes Primary care physician: [facility] Course: 80-year-old female with a past medical history of CAD, hypertension, hyperlipidemia, atrial fibrillation on Xarelto, type II [id number] diabetes mellitus, GERD, and chronic anemia. She presented to the emergency department with a chief complaint of abdominal pain which was diffuse, sharp and cramping in nature. In the ER chest x-ray was negative for acute cardiopulmonary process. Abdominal x-ray/KUB was positive for gas fluid levels within distended small bowel in the mid to upper abdomen suggestive of a small bowel obstruction versus severe ileus. CT abdomen and pelvis then completed confirming partial distal small bowel obstruction. While in the emergency department, the patient had episode of increased abdominal pain, nausea with 1 episode of vomiting. NG tube was placed. Patient reports history of small bowel obstruction in 2019 that required hospitalization but resolved without any surgical intervention. Patient denied having any other complaints including recent illness or exposure to known ill contacts, fevers, chills, diaphoresis, headache, lightheadedness, dizziness, chest pain or palpitations, or shortness of breath. Patient was seen by general surgery, underwent exploratory laparotomy, had part of her terminal ileum resected due to presence of obstruction. She tolerated the surgical procedure well. Postoperatively she had worsening of her chronic atrial fibrillation with her heart rate jumping in the 120s. Her metoprolol was increased to 75 mg by mouth twice a day. Heart rate came down with that. She was followed by cardiology as well. Her AC was held the day of the surgery but was resumed later. Diet was advanced gradually and patient was able to tolerated well. She started having bowel movements. Today she is feeling well and will be discharged home in a stable condition. Time for discharge 35 minutes. Plan - Discharge Summary Discharge Rx Participant: No New Discharge Prescriptions: New HYDROcodone/APAP 5-325MG [[place] 5-325] 1 tab PO Q6HR PRN 3 Days #12 tab PRN Reason: Pain Docusate [Colace] 100 mg PO BID #30 capsule Continue metFORMIN HCL [Glucophage] 500 mg PO BID Aspirin 81 mg PO DAILY #1 chewable Vits A,C,E/Lutein/Minerals [Ocuvite with Lutein Tablet] 1 tab PO BID Cinnamon Bark [Cinnamon] 500 mg PO BID Atorvastatin [Lipitor] 40 mg PO HS lisinopriL [Zestril] 20 mg PO HS Rivaroxaban [Xarelto] 20 mg PO AC-SUPPER Omeprazole 20 mg PO HS Metoprolol Tartrate [Lopressor] 50 mg PO BID hydrALAZINE HCL [Apresoline] 50 mg PO AC-TID #0 Cholecalciferol [Vitamin D3 (25 Mcg = 1000 Iu)] 50 mcg PO DAILY Discharge Medication List metFORMIN HCL [Glucophage] 500 mg PO BID 07/02/15 [History] Aspirin 81 mg PO DAILY #1 chewable 07/04/15 [Rx] Cinnamon Bark [Cinnamon] 500 mg PO BID 07/15/15 [History] Vits A,C,E/Lutein/Minerals [Ocuvite with Lutein Tablet] 1 tab PO BID 07/15/15 [History] Atorvastatin [Lipitor] 40 mg PO HS 04/05/17 [History] lisinopriL [Zestril] 20 mg PO HS 04/14/17 [History] Rivaroxaban [Xarelto] 20 mg PO AC-SUPPER 01/22/19 [History] Omeprazole 20 mg PO HS 09/10/19 [History] Metoprolol Tartrate [Lopressor] 50 mg PO BID 10/20/20 [History] hydrALAZINE HCL [Apresoline] 50 mg PO AC-TID #0 10/21/20 [Rx] Cholecalciferol [Vitamin D3 (25 Mcg = 1000 Iu)] 50 mcg PO DAILY 02/18/21 [History] Docusate [Colace] 100 mg PO BID #30 capsule 02/23/21 [Rx] HYDROcodone/APAP 5-325MG [[place] 5-325] 1 tab PO Q6HR PRN 3 Days #12 tab 02/23/21 [Rx] Follow up Appointment(s)/Referral(s): Gen Palma MD [Primary Care Provider] - 1-2 days Kevin Carias MD [STAFF PHYSICIAN] - 1 Week Wagner Bassett MD [STAFF PHYSICIAN] - 1 Week
== END 2021-02-24 15:00 | disposition home or self-care (01) | DRG 331 ==
LOC: EC 03:34 → 4SSUR 09:35
PROVIDERS: ADMIT Internal Medicine; ATTEND Internal Medicine
PROC: 0DB80ZZ Excision of Small Intestine, Open Approach (ICD-10-PCS; principal; 2021-02-19 13:30)
DX: K56.600 Partial intestinal obstruction, unspecified as to cause (principal); Z87.19 Personal history of other diseases of the digestive system; I10 Essential (primary) hypertension; E78.5 Hyperlipidemia, unspecified; F41.9 Anxiety disorder, unspecified; E11.9 Type 2 diabetes mellitus without complications; Z79.84 Long term (current) use of oral hypoglycemic drugs; I25.10 Atherosclerotic heart disease of native coronary artery without angina pectoris; I48.91 Unspecified atrial fibrillation; Z79.01 Long term (current) use of anticoagulants; D64.9 Anemia, unspecified; K21.9 Gastro-esophageal reflux disease without esophagitis; Z90.710 Acquired absence of both cervix and uterus; Z82.49 Family history of ischemic heart disease and other diseases of the circulatory system; Z82.3 Family history of stroke; Z79.82 Long term (current) use of aspirin; I48.0 Paroxysmal atrial fibrillation; I11.0 Hypertensive heart disease with heart failure; I50.9 Heart failure, unspecified; Z20.822 Contact with and (suspected) exposure to COVID-19; Z87.891 Personal history of nicotine dependence; Z86.73 Personal history of transient ischemic attack (TIA), and cerebral infarction without residual deficits; Z85.41 Personal history of malignant neoplasm of cervix uteri; M81.0 Age-related osteoporosis without current pathological fracture; K52.9 Noninfective gastroenteritis and colitis, unspecified; Z79.899 Other long term (current) drug therapy
CPT/HCPCS: 36415; 71045; 74018; 74177; 80048; 80053; 81001; 82150; 83605; 83690; 83735; 84484; 85025; 85027; 85610; 86850; 86900; 86901; 87086; 87635; 88307; 94760; 96361; 96374; 96375; 99285

== ENCOUNTER 2021-04-07 10:45 | Day surgery (SDC) | payer MEDICARE, BC ==
[2021-04-05 11:52] VITALS: BMI 27.9
[~2021-04-07 10:45] MED LIST changes: +DEXAMETHASONE SOD PHOSPHATE 4 MG/ML 1 ML VIAL IV PRN; +FAMOTIDINE 20 MG/2 ML VIAL IV PRN; +HYDROmorphone 0.5 MG/0.5 ML SYRINGE IVP PRN; +LIDOCAINE 1% (10MG/ML) FOR IV START INTRADERMA PRN; +ONDANSETRON 4 MG/2 ML VIAL IVP ONE; +ONDANSETRON 4 MG/2 ML VIAL IVP PRN
[2021-04-07 11:19] VITALS: TEMP 96.8
[2021-04-07 11:47] LABS: Glucose,Whole Blood 113 mg/dL (75-99)
[2021-04-07] MEDS ORDERED: LIDOCAINE 1% INJ 10MG/ML (20 ML MDV) ONE (12:04)
[2021-04-07] MEDS ORDERED: SUCCINYLCHOLINE CHLORIDE 100 MG/5 ML SYR IV ONE (12:04)
[2021-04-07] MEDS ORDERED: PROPOFOL 10 MG/ML 20 ML VIAL IV ONE (12:04)
[2021-04-07] MEDS ORDERED: fentaNYL (PF) 50 MCG/ML 2 ML AMP ONE (12:04)
--- NOTE | 2021-04-07 12:44 | P.OP ---
Date of Procedure: 04/07/21 Preoperative Diagnosis: Chronic left-sided sore throat Postoperative Diagnosis: Same Procedure(s) Performed: Microlaryngoscopy with biopsy left aryepiglottic fold Anesthesia: SOL Surgeon: Keenan Zuluaga Pathology: other (Left aryepiglottic fold) Condition: stable Disposition: PACU Indications for Procedure: This is an 80-year-old white female who has had chronic left-sided sore throat. She had computed tomography scan and PET scan which showed abnormality in the area of the left aryepiglottic fold-this has not been visualized on flexible laryngoscopy Operative Findings: Very minimal normal mucosal colored nodular area of the left area epiglottic fold was only approximately 2 mm area and was smooth but was biopsied Description of Procedure: The patient was brought in the operative suite and placed in a supine position. Patient underwent induction of general anesthesia with oral endotracheal intubation without difficulty. The patient was prepped and draped in usual aseptic fashion. Tooth guard was placed. Direct laryngoscopy was performed with systematic evaluation of the base of tongue vallecula both piriform sinuses post cricoid area and endolarynx. With the larynx in good visualization the laryngoscope was suspension and the microscope was brought into position to visualize the larynx and left aryepiglottic fold in particular. Multiple microcup forceps biopsies were taken of this area-the left aryepiglottic fold. Hemostasis was gained spontaneously. The laryngoscope and tooth guard was removed. The patient was allowed to emerge from general anesthesia having tolerated procedure well was extubated in the operating suite and transferred to postop recovery area in satisfactory
[2021-04-07 13:04] VITALS: RESP 16
[2021-04-07 13:17] LABS: Glucose,Whole Blood 119 mg/dL (75-99)
[2021-04-07 14:15] VITALS: PULSE 85
[2021-04-07 14:38] VITALS: BP 167/66
== END 2021-04-07 14:49 | disposition home or self-care (01) ==
LOC: OR 10:45
PROVIDERS: ATTEND Otolaryngology
DX: J37.0 Chronic laryngitis (principal); K21.9 Gastro-esophageal reflux disease without esophagitis; Z86.73 Personal history of transient ischemic attack (TIA), and cerebral infarction without residual deficits; Z79.899 Other long term (current) drug therapy; Z79.01 Long term (current) use of anticoagulants; Z88.8 Allergy status to other drugs, medicaments and biological substances; Z87.891 Personal history of nicotine dependence; I48.91 Unspecified atrial fibrillation; I10 Essential (primary) hypertension; E78.5 Hyperlipidemia, unspecified; E11.9 Type 2 diabetes mellitus without complications
CPT/HCPCS: 31536; 88305; J1100; J2405; J2001; J3010; J0330; J2704

== ENCOUNTER 2021-05-18 14:09 | Inpatient (IN) | payer MEDICARE, BC ==
[2021-05-18] MEDS ORDERED: SODIUM CHLORIDE 0.9% 500 ML 500 ML IV STA (14:50)
--- NOTE | 2021-05-18 14:53 | ED ---
General Adult HPI - General Chief complaint: Weakness Stated complaint: High BP,Weakness Time Seen by Provider: 05/18/21 14:10 Source: patient, RN notes reviewed, old records reviewed Mode of arrival: wheelchair Limitations: no limitations - History of Present Illness Initial comments: This is an 80-year-old female presents emergency department stating that she had 6 episodes today of near-syncope. Patient states she gets off fuzzy and feels like she's given a passout. Patient states she has no chest pain or difficulty breathing or shortness of breath per patient denies any palpitations. Patient states she is on Toprol twice a day she believes 50 twice a day. Patient denies any symptoms currently but she states while she's been sitting here in bed she's had the episode occurred 3 times. Patient states she has a mild headache she denies any numbness weakness. Patient denies any abdominal pain patient denies nausea vomiting diarrhea. Patient denies any recent fever chills or cough. - Related Data Home Medications Medication Instructions Recorded Confirmed metFORMIN HCL [Glucophage] 500 mg PO BID 07/02/15 04/07/21 Cinnamon Bark [Cinnamon] 500 mg PO BID 07/15/15 04/07/21 Vits A,C,E/Lutein/Minerals 1 tab PO BID 07/15/15 04/07/21 [Ocuvite with Lutein Tablet] Atorvastatin [Lipitor] 40 mg PO HS 04/05/17 04/07/21 lisinopriL [Zestril] 20 mg PO HS 04/14/17 04/07/21 Rivaroxaban [Xarelto] 20 mg PO AC-SUPPER 01/22/19 04/07/21 Omeprazole 20 mg PO HS 09/10/19 04/07/21 Metoprolol Tartrate [Lopressor] 50 mg PO BID 10/20/20 04/07/21 Cholecalciferol [Vitamin D3 (25 50 mcg PO DAILY 02/18/21 04/07/21 Mcg = 1000 Iu)] Previous Rx's Medication Instructions Recorded Aspirin 81 mg PO DAILY #1 chewable 07/04/15 hydrALAZINE HCL [Apresoline] 50 mg PO AC-TID #0 10/21/20 HYDROcodone/APAP 5-325MG [[place] 1 tab PO Q6HR PRN 3 Days #12 tab 02/23/21 5-325] Allergies Allergy/AdvReac Type Severity Reaction Status Date / Time amlodipine Allergy Anaphylaxis Verified 05/18/21 14:14 isosorbide mononitrate Allergy Rash/Hives Verified 05/18/21 14:14 [From Imdur] Review of Systems ROS Statement: Those systems with pertinent positive or pertinent negative responses have been documented in the HPI. ROS Other: All systems not noted in ROS Statement are negative. Past Medical History Past Medical History: Atrial Fibrillation, Cancer, CVA/TIA, Diabetes Mellitus, GERD/Reflux, Hyperlipidemia, Hypertension, Osteoarthritis (OA), Syncope Additional Past Medical History / Comment(s): OSteoporosis, hiatal hernia, diverticulosis, polyps, cervical cancer, DJD, recent hospitalization for small bowel obstruction & had surgery History of Any Multi-Drug Resistant Organisms: None Reported Past Surgical History: Back Surgery, Bowel Resection, Heart Catheterization, Hysterectomy Additional Past Surgical History / Comment(s): EGD, Colonoscopy, bilateral cataract removed, "fatty tumor" removed from her back, exp. laparotomy w/small bowel resection Past Anesthesia/Blood Transfusion Reactions: No Reported Reaction, Motion Sickness Additional Past Anesthesia/Blood Transfusion Reaction / Comment(s): Pt has never recieved blood. SON "CODED" POST HIP REPLACEMENT Past Psychological History: Anxiety Smoking Status: Former smoker Past Alcohol Use History: None Reported Past Drug Use History: None Reported - Past Family History Father Family Medical History: Myocardial Infarction ([place]) Additional Family Medical History / Comment(s): Father of a [place] at age 76yrs. Mother Family Medical History: CVA/TIA Additional Family Medical History / Comment(s): Mother had a CVA at age 88yrs. She at age 92yrs. General Exam - General Exam Comments Initial Comments: GENERAL: Patient is well-developed and well-nourished. Patient is nontoxic and well- hydrated and is in no acute distress. ENT: Neck is soft and supple. No significant lymphadenopathy is noted. Oropharynx is clear. Moist mucous membranes. Neck has full range of motion without eliciting any pain. EYES: The sclera were anicteric and conjunctiva were pink and moist. Extraocular movements were intact and pupils were equal round and reactive to light. Eyelids were unremarkable. PULMONARY: Unlabored respirations. Good breath sounds bilaterally. No audible rales rhonchi or wheezing was noted. CARDIOVASCULAR: Patient is bradycardic. Patient's heart rate gets down into the 30s at times. ABDOMEN: Soft and nontender with normal bowel sounds. SKIN: Skin is clear with no lesions or rashes and otherwise unremarkable. NEUROLOGIC: Patient is alert and oriented x3. Cranial nerves II through XII are grossly intact. Motor and sensory are also intact. Normal speech, volume and content. Symmetrical smile. MUSCULOSKELETAL: Normal extremities with adequate strength and full range of motion. No lower extremity swelling or edema. No calf tenderness. LYMPHATICS: No significant lymphadenopathy is noted PSYCHIATRIC: Normal psychiatric evaluation. Limitations: no limitations Course Vital Signs 05/18/21 05/18/21 14:11 14:50 Temperature 97.9 F Pulse Rate 48 L 41 L Respiratory 16 16 Rate Blood Pressure 180/71 165/77 O2 Sat by Pulse 98 97 Oximetry Medical Decision Making - Medical Decision Making EKG shows atrial fibrillation at a rate of 66 bpm QRS is 78 QT interval is 440 QTC is 461 per patient's EKG shows no ST segment elevation or depression. While I was standing up and talk to the patient patient's heart rate got down to 38 on multiple occasions. I spoke with Dr. Biswas he agreed to admit the patient admitted the patient wrote admitting orders. - Lab Data Result diagrams: 05/18/21 14:50 05/18/21 14:50 Lab Results 05/18/21 05/18/21 05/18/21 Range/Units 14:50 14:50 14:50 WBC 9.6 (3.8-10.6) k/uL RBC 4.12 (3.80-5.40) m/uL Hgb 10.3 L (11.4-16.0) gm/dL Hct 32.7 L (34.0-46.0) % MCV 79.5 L (80.0-100.0) fL MCH 24.9 L (25.0-35.0) pg MCHC 31.4 (31.0-37.0) g/dL RDW 16.9 H (11.5-15.5) % Plt Count 368 (150-450) k/uL MPV 7.8 Neutrophils % 61 % Lymphocytes % 27 % Monocytes % 8 % Eosinophils % 1 % Basophils % 0 % Neutrophils # 5.9 (1.3-7.7) k/uL Lymphocytes # 2.6 (1.0-4.8) k/uL Monocytes # 0.8 (0-1.0) k/uL Eosinophils # 0.1 (0-0.7) k/uL Basophils # 0.0 (0-0.2) k/uL Hypochromasia Moderate Anisocytosis Slight Microcytosis Slight PT 12.2 H (9.0-12.0) sec INR 1.2 H (<1.2) APTT 26.4 (22.0-30.0) sec Sodium 139 (137-145) mmol/L Potassium 4.6 (3.5-5.1) mmol/L Chloride 107 (98-107) mmol/L Carbon Dioxide 20 L (22-30) mmol/L Anion Gap 12 mmol/L BUN 15 (7-17) mg/dL Creatinine 0.60 (0.52-1.04) mg/dL Est GFR (CKD-EPI)AfAm >90 (>60 ml/min/1.73 sqM) Est GFR (CKD-EPI)NonAf 87 (>60 ml/min/1.73 sqM) Glucose 114 H (74-99) mg/dL Calcium 9.8 (8.4-10.2) mg/dL Magnesium 1.5 L (1.6-2.3) mg/dL Total Bilirubin 0.3 (0.2-1.3) mg/dL AST 35 (14-36) U/L ALT 29 (4-34) U/L Alkaline Phosphatase 74 (38-126) U/L Troponin I (0.000-0.034) ng/mL NT-Pro-B Natriuret Pep pg/mL Total Protein 6.5 (6.3-8.2) g/dL Albumin 4.0 (3.5-5.0) g/dL 05/18/21 05/18/21 Range/Units 14:50 14:50 WBC (3.8-10.6) k/uL RBC (3.80-5.40) m/uL Hgb (11.4-16.0) gm/dL Hct (34.0-46.0) % MCV (80.0-100.0) fL MCH (25.0-35.0) pg MCHC (31.0-37.0) g/dL RDW (11.5-15.5) % Plt Count (150-450) k/uL MPV Neutrophils % % Lymphocytes % % Monocytes % % Eosinophils % % Basophils % % Neutrophils # (1.3-7.7) k/uL Lymphocytes # (1.0-4.8) k/uL Monocytes # (0-1.0) k/uL Eosinophils # (0-0.7) k/uL Basophils # (0-0.2) k/uL Hypochromasia Anisocytosis Microcytosis PT (9.0-12.0) sec INR (<1.2) APTT (22.0-30.0) sec Sodium (137-145) mmol/L Potassium (3.5-5.1) mmol/L Chloride (98-107) mmol/L Carbon Dioxide (22-30) mmol/L Anion Gap mmol/L BUN (7-17) mg/dL Creatinine (0.52-1.04) mg/dL Est GFR (CKD-EPI)AfAm (>60 ml/min/1.73 sqM) Est GFR (CKD-EPI)NonAf (>60 ml/min/1.73 sqM) Glucose (74-99) mg/dL Calcium (8.4-10.2) mg/dL Magnesium (1.6-2.3) mg/dL Total Bilirubin (0.2-1.3) mg/dL AST (14-36) U/L ALT (4-34) U/L Alkaline Phosphatase (38-126) U/L Troponin I <0.012 (0.000-0.034) ng/mL NT-Pro-B Natriuret Pep 1920 pg/mL Total Protein (6.3-8.2) g/dL Albumin (3.5-5.0) g/dL Disposition Clinical Impression: Near syncope, Bradycardia Disposition: ADMITTED IP TO THIS HOSP Referrals: Gen Palma MD [Primary Care Provider] - 1-2 days Time of Disposition: 16:09
[2021-05-18 15:23] LABS: Anisocytosis Slight; Basophils % (A) 0 %; Eosinophils # (A) 0.1 k/uL (0-0.7); Eosinophils % (A) 1 %; HCT 32.7 % (34.0-46.0); HGB 10.3 gm/dL (11.4-16.0); Hypochromasia Moderate; Lymphocytes # (A) 2.6 k/uL (1.0-4.8); Lymphocytes % (A) 27 %; MCH 24.9 pg (25.0-35.0); MCHC 31.4 g/dL (31.0-37.0); MCV 79.5 fL (80.0-100.0); Mean Platelet Volume 7.8; Microcytosis Slight; Monocytes # (A) 0.8 k/uL (0-1.0); Monocytes % (A) 8 %; Neutrophils # (A) 5.9 k/uL (1.3-7.7); Neutrophils % (A) 61 %; Platelet Count 368 k/uL (150-450); RBC 4.12 m/uL (3.80-5.40); RDW 16.9 % (11.5-15.5); WBC 9.6 k/uL (3.8-10.6)
[2021-05-18 15:32] LABS: ALT 29 U/L (4-34); AST 35 U/L (14-36); African American GFR (CKD) >90 (>60 ml/min/1.73 sqM); Alkaline Phosphatase 74 U/L (38-126); Anion Gap 12 mmol/L; Blood Urea Nitrogen 15 mg/dL (7-17); Calcium 9.8 mg/dL (8.4-10.2); Carbon Dioxide 20 mmol/L (22-30); Chloride 107 mmol/L (98-107); Glucose 114 mg/dL (74-99); INR 1.2 (<1.2); Magnesium 1.5 mg/dL (1.6-2.3); Non-African American GFR(CKD) 87 (>60 ml/min/1.73 sqM); Partial Thromboplastin Time 26.4 sec (22.0-30.0); Potassium 4.6 mmol/L (3.5-5.1); Prothrombin Time 12.2 sec (9.0-12.0); Sodium 139 mmol/L (137-145); Total Bilirubin 0.3 mg/dL (0.2-1.3); Total Protein 6.5 g/dL (6.3-8.2)
--- NOTE | 2021-05-18 15:56 | XR ---
EXAMINATION TYPE: XR chest 2V DATE OF EXAM: 05/18/2021 COMPARISON: 02/20/2021 HISTORY: 80-year-old female with chest pain TECHNIQUE: AP and lateral views FINDINGS: Heart mildly enlarged. Interstitial prominence is unchanged. The right main pulmonary artery on the l ateral view appears large. High-density nodule at the right base is unchanged. No pleural effusion or kamlesh consolidation. IMPRESSION: 1. Mild cardiomegaly. There may be underlying pulmonary arterial hypertension. 2. Old calcified granuloma at the right base. 3. Interstitial prominence could reflect mild pulmonary vascular congestion, bronchitis, or chronic a sthma.
[2021-05-18] MEDS ORDERED: SODIUM CHLORIDE 0.9% 1,000 ML IV ONE (16:09)
[2021-05-18] MEDS ORDERED: HYDROcodone/APAP 5-325MG 1 EACH TAB PO PRN (16:12)
--- NOTE | 2021-05-18 17:10 | P.HPIM ---
History of Present Illness H&P Date: 05/18/21 Chief Complaint: Dizziness This is a 80-year-old female with past medical history is noted below significant for chronic atrial fibrillation on anticoagulation with Rivaroxaban who presented to the emergency room with dizziness and near syncopal episode. Patient said that she get fuzzy feeling and feels that she is about to pass out. She denies any shortness of breath or chest pain. She was evaluated in the ER and was noted to have episodes of bradycardia on medical typist with a heart rate down to the 30s. 12-lead EKG showed atrial fibrillation with slow ventri cular response. Heart rate is fluctuating anywhere between 40s and 60s on the monitor. Patient is hemodynamically stable. Lab work was within acceptable range except for hypomagnesemia. Patient will be placed on observation for cardiology consultation. Review of Systems Review of system: 14 points review of systems were obtained and were negative except to what were mentioned in the HPI. Past Medical History Past Medical History: Atrial Fibrillation, Cancer, CVA/TIA, Diabetes Mellitus, GERD/Reflux, Hyperlipidemia, Hypertension, Osteoarthritis (OA), Syncope Additional Past Medical History / Comment(s): OSteoporosis, hiatal hernia, diverticulosis, polyps, cervical cancer, DJD, recent hospitalization for small bowel obstruction & had surgery History of Any Multi-Drug Resistant Organisms: None Reported Past Surgical History: Back Surgery, Bowel Resection, Heart Catheterization, Hysterectomy Additional Past Surgical History / Comment(s): EGD, Colonoscopy, bilateral cataract removed, "fatty tumor" removed from her back, exp. laparotomy w/small bowel resection Past Anesthesia/Blood Transfusion Reactions: No Reported Reaction, Motion Sickness Additional Past Anesthesia/Blood Transfusion Reaction / Comment(s): Pt has never recieved blood. SON "CODED" POST HIP REPLACEMENT Past Psychological History: Anxiety Smoking Status: Former smoker Past Alcohol Use History: None Reported Past Drug Use History: None Reported - Past Family History Father Family Medical History: Myocardial Infarction ([place]) Additional Family Medical History / Comment(s): Father of a [place] at age 76yrs. Mother Family Medical History: CVA/TIA Additional Family Medical History / Comment(s): Mother had a CVA at age 88yrs. She at age 92yrs. Medications and Allergies Home Medications Medication Instructions Recorded Confirmed Type metFORMIN HCL [Glucophage] 500 mg PO BID 07/02/15 05/18/21 History Aspirin 81 mg PO DAILY #1 chewable 07/04/15 05/18/21 Rx Cinnamon Bark [Cinnamon] 500 mg PO DAILY 07/15/15 05/18/21 History Vits A,C,E/Lutein/Minerals 1 tab PO DAILY 07/15/15 05/18/21 History [Ocuvite with Lutein Tablet] Atorvastatin [Lipitor] 40 mg PO HS 04/05/17 05/18/21 History lisinopriL [Zestril] 20 mg PO HS 04/14/17 05/18/21 History Rivaroxaban [Xarelto] 20 mg PO AC-SUPPER 01/22/19 05/18/21 History Omeprazole 20 mg PO HS 09/10/19 05/18/21 History Metoprolol Tartrate [Lopressor] 50 mg PO BID 10/20/20 05/18/21 History hydrALAZINE HCL [Apresoline] 50 mg PO AC-TID #0 10/21/20 05/18/21 Rx Cholecalciferol [Vitamin D3 (25 25 mcg PO DAILY 02/18/21 05/18/21 History Mcg = 1000 Iu)] Nitrofurantoin Monohyd/M-Cryst 100 mg PO Q12HR 05/18/21 05/18/21 History [Macrobid] Allergies Allergy/AdvReac Type Severity Reaction Status Date / Time amlodipine Allergy Anaphylaxis Verified 05/18/21 16:15 isosorbide mononitrate Allergy Rash/Hives Verified 05/18/21 16:15 [From dur] Physical Exam Vitals: Vital Signs Temp Pulse Resp BP Pulse Ox 05/18/21 14:50 41 L 16 165/77 97 05/18/21 14:11 97.9 F 48 L 16 180/71 98 Intake and Output 05/18/21 05/18/21 05/18/21 06:59 14:59 22:59 Other: Weight 64.864 kg General: The patient is awake and alert, in no distress Eye: there is normal conjunctiva bilaterally. Neck: The neck is supple, there is no JVD. Cardiovascular: Normal S1-S2, no S3-S4, no murmurs. Respiratory: Lungs clear to auscultation bilaterally Gastrointestinal: Abdomen is soft, nontender Musculoskeletal: There is no pedal edema. Neurological:. Speech is normal. Skin: Skin is warm and dry Results CBC & Chem 7: 05/18/21 14:50 05/18/21 14:50 Labs: Abnormal Lab Results - Last 24 Hours (Table) 05/18/21 05/18/21 05/18/21 Range/Units 14:50 14:50 14:50 Hgb 10.3 L (11.4-16.0) gm/dL Hct 32.7 L (34.0-46.0) % MCV 79.5 L (80.0-100.0) fL MCH 24.9 L (25.0-35.0) pg RDW 16.9 H (11.5-15.5) % PT 12.2 H (9.0-12.0) sec INR 1.2 H (<1.2) Carbon Dioxide 20 L (22-30) mmol/L Glucose 114 H (74-99) mg/dL Magnesium 1.5 L (1.6-2.3) mg/dL Assessment and Plan Assessment: This is a 80-year-old female who presented to the emergency room with presyncopal episode. Patient was evaluated and placed on observation for further management of her medical problems noted below. 1. Symptomatic bradycardia, heart rate is fluctuating on the monitor between 30s and 60s. Home dose of metoprolol was discontinued. Cardiology consulted for further evaluation. 2. Hypomagnesemia, replacement ordered. Repeat lab work in the morning 3. Chronic atrial fibrillation on anticoagulation with Rivaroxaban 4. Type 2 diabetes: Hold home dose of metformin and continue sliding scale insulin 5. Essential hypertension, blood pressure not well controlled. Continue home medications except metoprolol and continue to monitor closely 6. Hyperlipidemia
[2021-05-18] MEDS ORDERED: RIVAROXABAN 20 MG TAB PO SCH (17:30)
[2021-05-18 18:47] LABS: Glucose,Whole Blood 106 mg/dL (75-99)
[2021-05-18] MEDS: INSULIN ASPART (NovoLOG) 100 UNIT/ML VIAL SQ SCH ×2 (18:47→21:44)
[2021-05-18] MEDS: MAGNESIUM SULFATE-D5W PMX 1 GM in DEXTROSE/WATER 1 100ML.BAG IVPB SCH ×2 (18:53→20:29)
[2021-05-18] MEDS: hydrALAZINE HCL 50 MG TAB PO SCH (18:58)
[2021-05-18] MEDS: lisinopriL 20 MG TAB PO SCH (20:29)
[2021-05-18] MEDS: ATORVASTATIN 40 MG TAB PO SCH (20:29)
[2021-05-18] MEDS ORDERED: metFORMIN 500 MG TAB PO SCH (21:00)
[2021-05-18 21:44] LABS: Glucose,Whole Blood 154 mg/dL (75-99)
[2021-05-19 03:39] LABS: Anisocytosis Slight; Basophils # (A) 0.1 k/uL (0-0.2); Basophils % (A) 1 %; Eosinophils # (A) 0.2 k/uL (0-0.7); Eosinophils % (A) 2 %; HCT 30.5 % (34.0-46.0); HGB 9.4 gm/dL (11.4-16.0); Hypochromasia Marked; Lymphocytes # (A) 3.2 k/uL (1.0-4.8); Lymphocytes % (A) 32 %; MCH 24.8 pg (25.0-35.0); MCHC 30.7 g/dL (31.0-37.0); MCV 80.7 fL (80.0-100.0); Mean Platelet Volume 7.7; Microcytosis Slight; Monocytes # (A) 0.8 k/uL (0-1.0); Monocytes % (A) 8 %; Neutrophils # (A) 5.7 k/uL (1.3-7.7); Neutrophils % (A) 56 %; Platelet Count 354 k/uL (150-450); RBC 3.78 m/uL (3.80-5.40); RDW 16.7 % (11.5-15.5); WBC 10.1 k/uL (3.8-10.6)
[2021-05-19 03:45] LABS: African American GFR (CKD) >90 (>60 ml/min/1.73 sqM); Anion Gap 9 mmol/L; Blood Urea Nitrogen 15 mg/dL (7-17); Calcium 9.2 mg/dL (8.4-10.2); Carbon Dioxide 20 mmol/L (22-30); Chloride 108 mmol/L (98-107); Glucose 118 mg/dL (74-99); Magnesium 2.1 mg/dL (1.6-2.3); Non-African American GFR(CKD) 84 (>60 ml/min/1.73 sqM); Potassium 4.2 mmol/L (3.5-5.1); Sodium 137 mmol/L (137-145)
[2021-05-19] MEDS: PANTOPRAZOLE 40 MG TABLET PO SCH (06:59)
[2021-05-19] MEDS: hydrALAZINE HCL 50 MG TAB PO SCH ×3 (06:59→16:04)
[2021-05-19 07:02] LABS: Glucose,Whole Blood 117 mg/dL (75-99)
[2021-05-19] MEDS: INSULIN ASPART (NovoLOG) 100 UNIT/ML VIAL SQ SCH ×4 (07:02→20:28)
[2021-05-19] MEDS ORDERED: ASPIRIN 81 MG PO SCH (09:00)
--- NOTE | 2021-05-19 09:12 | P.CRDCN ---
History of Present Illness Consult date: 05/19/21 History of present illness: HISTORY OF PRESENT ILLNESS: This is a 80-year-old female with a past medical history significant for paroxysmal atrial fibrillation, CVA, diabetes mellitus, GERD, hypertension, hyperlipidemia, diverticulosis with recent small bowel resection in February 2021, and coronary artery disease. Patient follows in the office with Dr. Carias. We have been asked to see the patient in consultation for presyncope. Patient examined at the bedside in the emergency room. Patient states yesterday around 10am she began to feel lightheaded and as if she was going to pass out. She denied having any syncopal episodes though. She denies chest pain or pressure. Denies shortness of breath. Denies nausea or vomiting. Denies cough or congestion. Patient is currently in atrial fibrillation with a heart rate ranging from 20-50 during examination. She is on metoprolol 50mg BID at home which is currently on hold. EKG reveals atrial fibrillation with slow ventricular rate Chest xray mild cardiomegaly. There may be underlying pulmonary arterial hypertension. Old calcified granuloma at the right base. Interstitial prominence could reflect mild pulmonary vascular congestion, bronchitis, or chronic asthma. Laboratory data: WBC 10.1. Hemoglobin 9.4. Platelet count 354. Sodium 137. Potassium 4.2. BUN 15. Creatinine 0.66. Current home cardiac medications include hydralazine 50 mg 3 times a day, Xarelto 20 mg daily, metoprolol tartrate 51 g twice a day, Lipitor 40mg daily, aspirin 81 g daily, lisinopril 20 mg daily Most recent echocardiogram obtained in 2019 revealed mild aortic valve sclerosis, mild aortic regurgitation, mild mitral regurgitation, mild mitral stenosis, mild tricuspid regurgitation, and mild pulmonary hypertension Patient underwent a premium stress echo in May 2020 revealing evidence of prior inferior wall myocardial infarction with preserved LV function without any stress-induced ischemia Patient underwent cardiac catheterization in 2014 revealing heavily calcified coronary system without any critical stenosis REVIEW OF SYSTEMS: At the time of my exam: CONSTITUTIONAL: Denies fever or chills. HEENT: Denies blurred vision, vision changes, or eye pain. Denies hemoptysis CARDIOVASCULAR: Denies chest pain. Denies orthopnea. Denies PND. Denies palpitations RESPIRATORY: Denies shortness of breath. GASTROINTESTINAL: Denies abdominal pain. Denies nausea or vomiting. HEMATOLOGIC: Denies bleeding disorders. GENITOURINARY: Denies any blood in urine. SKIN: Denies pruitis. Denies rash. PHYSICAL EXAM: VITAL SIGNS: Reviewed. GENERAL: Well-developed in no acute distress. HEENT: Head is normocephalic. Pupils are equal, round. Sclerae anicteric. Mucous membranes of the mouth are moist. Neck supple. No JVD or thyromegaly. + bruit. LUNGS: Respirations even and unlabored. Lungs essentially clear to auscultation bilaterally. HEART: Regular rate and rhythm. S1 and S2 heard. Systolic murmur noted ABDOMEN: Soft. Nondistended. Nontender. EXTREMITIES: Normal range of motion. No clubbing or cyanosis. Peripheral pulses intact. No lower extremity edema NEUROLOGIC: Awake and alert. Oriented x 3. ASSESSMENT: Pre-Syncope Symptomatic bradycardia Paroxysmal atrial fibrillation, on anticoagulation with Xarelto Hypertension Hyperlipidemia History of CVA Diabetes mellitus GERD History of diverticulosis with recent small bowel resection, February 2021 Valvular heart disease PLAN: Discontinue aspirin Hold Xarelto Hold metoprolol Continue additional home medications Continue telemetry monitoring Obtain 2D echo to assess cardiac structure and function NPO at midnight Plan for PPM with Dr. Carias tomorrow or Monday Further recommendations pending patient course Nurse practitioner note has been reviewed by physician. Signing provider agrees with the documented findings, assessment, and plan of care. Past Medical History Past Medical History: Atrial Fibrillation, Cancer, CVA/TIA, Diabetes Mellitus, GERD/Reflux, Hyperlipidemia, Hypertension, Osteoarthritis (OA), Syncope Additional Past Medical History / Comment(s): Osteoporosis, hiatal hernia, diverticulosis, polyps, cervical cancer, DJD, recent hospitalization for small bowel obstruction & had surgery in February 2021. History of Any Multi-Drug Resistant Organisms: None Reported Past Surgical History: Back Surgery, Bowel Resection, Heart Catheterization, Hysterectomy Additional Past Surgical History / Comment(s): EGD, Colonoscopy, bilateral cataract removed, "fatty tumor" removed from her back, exp. laparotomy w/small bowel resection Past Anesthesia/Blood Transfusion Reactions: No Reported Reaction, Motion Sickness Additional Past Anesthesia/Blood Transfusion Reaction / Comment(s): Pt has never recieved blood. SON "CODED" POST HIP REPLACEMENT Past Psychological History: Anxiety Additional Psychological History / Comment(s): Pt lives alone. 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 She uses no assistive devices or home care. She drives. Smoking Status: Former smoker Past Alcohol Use History: None Reported Additional Past Alcohol Use History / Comment(s): Pt states she smoked for about 52 yrs 1 ppd and eventually up to 10/17 ppd but quit in 2008. Past Drug Use History: None Reported - Past Family History Father Family Medical History: Myocardial Infarction ([place]) Additional Family Medical History / Comment(s): Father of a [place] at age 76yrs. Mother Family Medical History: CVA/TIA Additional Family Medical History / Comment(s): Mother had a CVA at age 88yrs. She at age 92yrs. Medications and Allergies Home Medications Medication Instructions Recorded Confirmed Type metFORMIN HCL [Glucophage] 500 mg PO BID 07/02/15 05/18/21 History Aspirin 81 mg PO DAILY #1 chewable 07/04/15 05/18/21 Rx Cinnamon Bark [Cinnamon] 500 mg PO DAILY 07/15/15 05/18/21 History Vits A,C,E/Lutein/Minerals 1 tab PO DAILY 07/15/15 05/18/21 History [Ocuvite with Lutein Tablet] Atorvastatin [Lipitor] 40 mg PO HS 04/05/17 05/18/21 History lisinopriL [Zestril] 20 mg PO HS 04/14/17 05/18/21 History Rivaroxaban [Xarelto] 20 mg PO AC-SUPPER 01/22/19 05/18/21 History Omeprazole 20 mg PO HS 09/10/19 05/18/21 History Metoprolol Tartrate [Lopressor] 50 mg PO BID 10/20/20 05/18/21 History hydrALAZINE HCL [Apresoline] 50 mg PO AC-TID #0 10/21/20 05/18/21 Rx Cholecalciferol [Vitamin D3 (25 25 mcg PO DAILY 02/18/21 05/18/21 History Mcg = 1000 Iu)] Nitrofurantoin Monohyd/M-Cryst 100 mg PO Q12HR 05/18/21 05/18/21 History [Macrobid] Allergies Allergy/AdvReac Type Severity Reaction Status Date / Time amlodipine Allergy Anaphylaxis Verified 05/18/21 16:15 isosorbide mononitrate Allergy Rash/Hives Verified 05/18/21 16:15 [From Imdur] Physical Exam Vitals: Vital Signs Temp Pulse Pulse Resp BP BP Pulse Ox 05/19/21 07:43 47 L 18 05/19/21 07:41 97.8 F 47 L 18 165/51 99 05/19/21 07:37 97.8 F 47 L 18 165/51 99 05/19/21 02:00 97.8 F 48 L 18 140/56 95 05/18/21 20:34 56 L 18 134/63 05/18/21 19:07 61 18 152/60 97 05/18/21 18:57 56 L 16 163/67 97 05/18/21 14:50 41 L 16 165/77 97 05/18/21 14:11 97.9 F 48 L 16 180/71 98 Intake and Output 05/18/21 05/19/21 05/19/21 22:59 06:59 14:59 Output Total 400 Balance -400 Output: Urine 400 Other: Voiding Method Bedside Commode Bedside Commode # Voids 2 Weight 64.864 kg Results 05/19/21 02:34 05/19/21 02:34 Cardiac Enzymes 05/18/21 05/18/21 Range/Units 14:50 14:50 AST 35 (14-36) U/L Troponin I <0.012 (0.000-0.034) ng/mL Coagulation 05/18/21 Range/Units 14:50 PT 12.2 H (9.0-12.0) sec APTT 26.4 (22.0-30.0) sec CBC 05/18/21 05/19/21 Range/Units 14:50 02:34 WBC 9.6 10.1 (3.8-10.6) k/uL RBC 4.12 3.78 L (3.80-5.40) m/uL Hgb 10.3 L 9.4 L (11.4-16.0) gm/dL Hct 32.7 L 30.5 L (34.0-46.0) % Plt Count 368 354 (150-450) k/uL Comprehensive Metabolic Panel 05/18/21 05/19/21 Range/Units 14:50 02:34 Sodium 139 137 (137-145) mmol/L Potassium 4.6 4.2 (3.5-5.1) mmol/L Chloride 107 108 H (98-107) mmol/L Carbon Dioxide 20 L 20 L (22-30) mmol/L BUN 15 15 (7-17) mg/dL Creatinine 0.60 0.66 (0.52-1.04) mg/dL Glucose 114 H 118 H (74-99) mg/dL Calcium 9.8 9.2 (8.4-10.2) mg/dL AST 35 (14-36) U/L ALT 29 (4-34) U/L Alkaline Phosphatase 74 (38-126) U/L Total Protein 6.5 (6.3-8.2) g/dL Albumin 4.0 (3.5-5.0) g/dL Current Medications Generic Name Dose Route Start Last Admin Trade Name Freq PRN Reason Stop Dose Admin Hydrocodone Bitart/Acetaminophen 1 each 05/18/21 16:12 Hydrocodone/Apap 5-325mg 1 Each Tab PO Q6HR PRN Pain Aspirin 81 mg 05/19/21 09:00 Aspirin 81 Mg PO DAILY [facility] Atorvastatin Calcium 40 mg 05/18/21 21:00 05/18/21 20:29 Atorvastatin 40 Mg Tab PO 40 mg HS [facility] Administration Cholecalciferol 25 mcg 05/19/21 09:00 Cholecalciferol 25 Mcg (1000 Iu) Tablet PO DAILY [facility] Hydralazine HCl 50 mg 05/18/21 17:30 05/19/21 06:59 Hydralazine Hcl 50 Mg Tab PO Not Given AC-TID [facility] Insulin Aspart 0 unit 05/18/21 17:30 05/19/21 07:02 Insulin Aspart (Novolog) 100 Unit/Ml Vial SQ Not Given ACHS [facility] Protocol Lisinopril 20 mg 05/18/21 21:00 05/18/21 20:29 Lisinopril 20 Mg Tab PO 20 mg HS [facility] Administration Pantoprazole Sodium 40 mg 05/19/21 07:30 05/19/21 06:59 Pantoprazole 40 Mg Tablet PO Not Given DAILY@0730 [facility] Intake and Output 05/18/21 05/19/21 05/19/21 22:59 06:59 14:59 Output Total 400 Balance -400 Output: Urine 400 Other: Voiding Method Bedside Commode Bedside Commode # Voids 2 Weight 64.864 kg 05/19/21 02:34 05/19/21 02:34
[2021-05-19] MEDS: CHOLECALCIFEROL 25 MCG (1000 IU) TABLET PO SCH (09:35)
[2021-05-19 12:00] LABS: Glucose,Whole Blood 190 mg/dL (75-99)
--- NOTE | 2021-05-19 12:01 | ECHOF ---
Referral Reason:LV function, syncope MEASUREMENTS -------- HEIGHT: 154.9 cm WEIGHT: 64.9 kg BP: 165/51 RVIDd: 3.1 cm (< 3.3) IVSd: 1.2 cm (0.6 - 1.1) LVIDd: 4.6 cm (3.9 - 5.3) LVPWd: 1.2 cm (0.6 - 1.1) IVSs: 1.7 cm LVIDs: 2.6 cm LVPWs: 1.6 cm LA Diam: 3.7 cm (2.7 - 3.8) Ao Diam: 2.8 cm (2.0 - 3.7) AV Cusp: 1.9 cm (1.5 - 2.6) MV EXCURSION: 10.022 mm (> 18.000) MV EF SLOPE: 40 mm/s (70 - 150) EPSS: 0.3 cm AR PHT: 517 ms RAP: 5.00 mmHg RVSP: 47.42 mmHg FINDINGS -------- Atrial fibrillation. This was a technically adequate study. The left ventricular size is normal. There is borderline concentric left ventricular hypertrophy. Overall left ventricular systolic function is normal with, an EF between 55 - 60 %. The right ventricle is normal in size. The left atrium is normal in size. The right atrial size is normal. Interatrial and interventricular septum intact. There is mild to moderate aortic valve sclerosis. There is mild aortic regurgitation. Moderate mitral annular calcification present. [id number] mitral regurgitation is present. The peak and mean MV gradients are 25.31mmHg 5.19mmHg as measured by doppler. Mild mitral stenosis . [id number] tricuspid regurgitation present. There is mild to moderate pulmonary hypertension. The right ventricular systolic pressure, as measured by Doppler, is 47.42mmHg. Moderate pulmonic regurgitation. The aortic root size is normal. Normal inferior vena cava with normal inspiratory collapse consistent with estimated right atrial pre ssure of 5 mmHg. There is no pericardial effusion. CONCLUSIONS -------- 1. Atrial fibrillation. 2. There is borderline concentric left ventricular hypertrophy. 3. Overall left ventricular systolic function is normal with, an EF between 55 - 60 %. 4. The left atrium is normal in size. 5. There is mild to moderate aortic valve sclerosis. 6. There is mild aortic regurgitation. 7. Moderate mitral annular calcification present. 8. Yifz-vc-pdkacrkx mitral regurgitation is present. 9. The peak and mean MV gradients are 25.31mmHg 5.19mmHg as measured by doppler. 10. Mild mitral stenosis. 11. Oiwq-cu-hmoqddup tricuspid regurgitation present. 12. There is mild to moderate pulmonary hypertension. 13. Moderate pulmonic regurgitation. 14. There is no pericardial effusion. WINDOW AIR CONDITIONER INSTALLER: Natali Beckham RDCS
[2021-05-19 15:50] LABS: Glucose,Whole Blood 151 mg/dL (75-99)
--- NOTE | 2021-05-19 16:33 | P.PN ---
Subjective Progress Note Date: 05/19/21 Patient is feeling about the same compared to yesterday. Her heart rate is fluctuating on the monitor. Metoprolol has been on hold since admission. Objective - Vital Signs Vital signs: Vital Signs Temp 98.0 F 05/19/21 12:00 Pulse 55 L 05/19/21 15:50 Resp 18 05/19/21 15:50 BP 192/65 05/19/21 15:50 Pulse Ox 96 05/19/21 15:50 Intake & Output 05/18/21 05/19/21 05/19/21 18:59 06:59 18:59 Output Total 400 Balance -400 Weight 64.864 kg 64.864 kg Output: Urine 400 Other: Voiding Method Bedside Commode Bedside Commode # Voids 2 - Exam General: The patient is awake and alert, in no distress Eye: there is normal conjunctiva bilaterally. Neck: The neck is supple, there is no JVD. Cardiovascular: Irregularly irregular. Normal S1-S2, no S3-S4, no murmurs. Respiratory: Lungs clear to auscultation bilaterally Gastrointestinal: Abdomen is soft, nontender Musculoskeletal: There is no pedal edema. Neurological:. Speech is normal. Skin: Skin is warm and dry - Labs CBC & Chem 7: 05/19/21 02:34 05/19/21 02:34 Labs: Abnormal Lab Results - Last 24 Hours (Table) 05/18/21 05/18/21 05/19/21 Range/Units 18:45 21:42 02:34 RBC 3.78 L (3.80-5.40) m/uL Hgb 9.4 L (11.4-16.0) gm/dL Hct 30.5 L (34.0-46.0) % MCH 24.8 L (25.0-35.0) pg MCHC 30.7 L (31.0-37.0) g/dL RDW 16.7 H (11.5-15.5) % Chloride (98-107) mmol/L Carbon Dioxide (22-30) mmol/L Glucose (74-99) mg/dL POC Glucose (mg/dL) 106 H 154 H (75-99) mg/dL 05/19/21 05/19/21 05/19/21 Range/Units 02:34 07:01 11:59 RBC (3.80-5.40) m/uL Hgb (11.4-16.0) gm/dL Hct (34.0-46.0) % MCH (25.0-35.0) pg MCHC (31.0-37.0) g/dL RDW (11.5-15.5) % Chloride 108 H (98-107) mmol/L Carbon Dioxide 20 L (22-30) mmol/L Glucose 118 H (74-99) mg/dL POC Glucose (mg/dL) 117 H 190 H (75-99) mg/dL 05/19/21 Range/Units 15:49 RBC (3.80-5.40) m/uL Hgb (11.4-16.0) gm/dL Hct (34.0-46.0) % MCH (25.0-35.0) pg MCHC (31.0-37.0) g/dL RDW (11.5-15.5) % Chloride (98-107) mmol/L Carbon Dioxide (22-30) mmol/L Glucose (74-99) mg/dL POC Glucose (mg/dL) 151 H (75-99) mg/dL Assessment and Plan Assessment: This is a 80-year-old female who presented to the emergency room with presyncopal episode. Patient was evaluated and placed on observation for fu rther management of her medical problems noted below. 1. Symptomatic bradycardia, heart rate is fluctuating on the monitor. Home dose of metoprolol was discontinued. Cardiology consulted for further evaluation. Plan for pacemaker implantation possibly tomorrow 2. Hypomagnesemia, replaced 3. Chronic atrial fibrillation on anticoagulation with Rivaroxaban, currently on hold in anticipation for procedure 4. Type 2 diabetes: Hold home dose of metformin and continue sliding scale insulin 5. Essential hypertension, blood pressure not well controlled. Home dose of hydralazine increased to 75 mg 3 times a day 6. Hyperlipidemia 7. CODE STATUS: Patient is full code
[2021-05-19] MEDS: hydrALAZINE HCL 25 MG TAB PO SCH (17:02)
[2021-05-19 17:15] LABS: Glucose,Whole Blood 124 mg/dL (75-99)
[2021-05-19 20:12] LABS: Glucose,Whole Blood 114 mg/dL (75-99)
[2021-05-19] MEDS: ATORVASTATIN 40 MG TAB PO SCH (20:28)
[2021-05-19] MEDS: lisinopriL 20 MG TAB PO SCH (20:28)
[2021-05-20 06:01] LABS: Glucose,Whole Blood 118 mg/dL (75-99)
[2021-05-20] MEDS: INSULIN ASPART (NovoLOG) 100 UNIT/ML VIAL SQ SCH ×4 (06:11→20:13)
[2021-05-20] MEDS: hydrALAZINE HCL 25 MG TAB PO SCH ×3 (06:29→16:28)
[2021-05-20] MEDS: PANTOPRAZOLE 40 MG TABLET PO SCH (06:29)
[2021-05-20] MEDS: CHOLECALCIFEROL 25 MCG (1000 IU) TABLET PO SCH (08:17)
[2021-05-20] MEDS ORDERED: HEPARIN SODIUM 1,000 UN/ML (10ML VL) IV ONE (09:07)
[2021-05-20] MEDS ORDERED: HEPARIN SOD,PORK IN 0.45% NACL 25,000 UNIT in 0.45% NACL 1 250ML.BAG IV SCH (09:15)
[2021-05-20] MEDS ORDERED: SODIUM CHLORIDE 0.9% 1,000 ML IV SCH (09:30)
[2021-05-20] MEDS: SODIUM CHLORIDE 0.9% 1,000 ML IV SCH ×2 (10:02→12:43)
[2021-05-20 10:26] LABS: Anisocytosis Slight; Basophils % (A) 0 %; Eosinophils # (A) 0.2 k/uL (0-0.7); Eosinophils % (A) 2 %; HCT 31.5 % (34.0-46.0); HGB 9.5 gm/dL (11.4-16.0); Hypochromasia Moderate; Lymphocytes # (A) 2.3 k/uL (1.0-4.8); Lymphocytes % (A) 27 %; MCH 24.2 pg (25.0-35.0); MCHC 30.1 g/dL (31.0-37.0); MCV 80.2 fL (80.0-100.0); Mean Platelet Volume 8.4; Microcytosis Slight; Monocytes # (A) 0.8 k/uL (0-1.0); Monocytes % (A) 10 %; Neutrophils % (A) 59 %; Platelet Count 364 k/uL (150-450); RBC 3.92 m/uL (3.80-5.40); RDW 16.8 % (11.5-15.5); WBC 8.5 k/uL (3.8-10.6)
[2021-05-20 10:57] LABS: Partial Thromboplastin Time 22.4 sec (22.0-30.0); Prothrombin Time 10.6 sec (9.0-12.0)
[2021-05-20 11:48] LABS: Glucose,Whole Blood 126 mg/dL (75-99)
--- NOTE | 2021-05-20 11:50 | P.PN ---
Subjective This is a 80-year-old female with a past medical history significant for chronic atrial fibrillation, CVA, diabetes mellitus, GERD, hypertension, hyperlipidemia, and diverticulosis, recent small bowel resection with Dr. Bassett on 02/19/2021. Patient follows in the office with Dr. Carias. We have been asked to see the patient in consultation for presyncope. Patient presents to the emergency department for symptoms of lightheadedness and felt as if she if she was going to pass out. She denied having any syncopal episodes though. In the ER patient was in atrial fibrillation with a heart rate ranging from 20-50. She is on metoprolol 50mg BID at home which is currently on hold. Most recent echocardiogram obtained in May 2020 revealed ejection fraction 60-65%, mild aortic regurgitation, mild mitral stenosis, mild tricuspid regurgitation, and mild pulmonary hypertension. 05/19/21echocardiogram revealed left ventricular systolic function is normal with EF 55-60%, mild aortic regurgitation, mild to moderate mitral regurgitation, mild mitral stenosis with a peak/mean gradient 25 mmg/5 mmHg, mild to moderate tricuspid regurgitation, mild to moderate pulmonary hypertension 05/20/2021: Patient seen at bedside, no acute distress. Continues to have some intermittent episodes of lightheadedness. Blood pressure 104/48, heart rate 66, afebrile maintaining saturations on room air. Telemetry reviewed patient continues to have bradycardic HR low 40s-60s, with 3-4 second pauses overnight and this morning. She is currently maintained on atorvastatin 40 mg nightly, lisinopril 20 mg nightly. Laboratory data review WBC 8.5, hemoglobin 9.5, platelets 364 PHYSICAL EXAM: VITAL SIGNS: Reviewed. GENERAL: Well-developed in no acute distress. HEENT: Neck supple. No JVD or thyromegaly LUNGS: Respirations even and unlabored. Lungs essentially clear to auscultation bilaterally. HEART: Irregular rate and rhythm. S1 and S2 heard. ABDOMEN: Soft. Nondistended. Appropriate surgical tenderness EXTREMITIES: Normal range of motion. No clubbing or cyanosis. Peripheral pulses intact. No lower extremity edema NEUROLOGIC: Awake and alert. Oriented x 3. ASSESSMENT: Pre-Syncope Symptomatic Bradycardia Chronic persistant atrial fibrillation, on anticoagulation with Xarelto Small bowel obstruction, status post small bowel resection 02/2021 Hypertension Hyperlipidemia History of CVA GERD Type 2 Diabetes mellitus History of diverticulosis with recent small bowel resection, February 2021 Valvular heart disease PLAN: Plan for PPM with Dr. Carias tomorrow. I have discussed the risks, benefits and alternative therapies for the above- mentioned procedure and for both sedation/analgesia as well as necessary blood product administration, if indicated, as they pertain to this patient. The patient has indicated understanding and acceptance of the risks and procedures discussed. Questions have been answered appropriately and he is agreeable to move forward with the above-stated procedure. Start IV heparin drip, hold 4 hours prior to procedure Continue to hold Xarelto and metoprolol Continue cardiac telemetry NPO after midnight Further recommendations pending patient course Nurse practitioner note has been reviewed by physician. Signing provider agrees with the documented findings, assessment, and plan of care. Objective - Vital Signs Vital signs: Vital Signs Temp 98.3 F 05/20/21 03:26 Pulse 66 05/20/21 08:00 Resp 16 05/20/21 08:00 BP 104/48 05/20/21 08:00 Pulse Ox 97 05/20/21 08:00 Intake & Output 05/19/21 05/20/21 05/20/21 18:59 06:59 18:59 Intake Total 240 Balance 240 Weight 62.9 kg Intake: Oral 240 Other: Voiding Method Bedside Commode Bedside Commode - Labs CBC & Chem 7: 05/20/21 09:43 05/19/21 02:34 Labs: Abnormal Lab Results - Last 24 Hours (Table) 05/19/21 05/19/21 05/19/21 Range/Units 11:59 15:49 17:13 Hgb (11.4-16.0) gm/dL Hct (34.0-46.0) % MCH (25.0-35.0) pg MCHC (31.0-37.0) g/dL RDW (11.5-15.5) % POC Glucose (mg/dL) 190 H 151 H 124 H (75-99) mg/dL 05/19/21 05/20/21 05/20/21 Range/Units 20:11 05:59 09:43 Hgb 9.5 L (11.4-16.0) gm/dL Hct 31.5 L (34.0-46.0) % MCH 24.2 L (25.0-35.0) pg MCHC 30.1 L (31.0-37.0) g/dL RDW 16.8 H (11.5-15.5) % POC Glucose (mg/dL) 114 H 118 H (75-99) mg/dL
--- NOTE | 2021-05-20 16:24 | P.PN ---
Subjective Progress Note Date: 05/20/21 No acute events overnight. Objective - Vital Signs Vital signs: Vital Signs Temp 98.3 F 05/20/21 03:26 Pulse 72 05/20/21 12:00 Resp 16 05/20/21 12:00 BP 151/64 05/20/21 12:00 Pulse Ox 94 L 05/20/21 12:00 Intake & Output 05/19/21 05/20/21 05/20/21 18:59 06:59 18:59 Intake Total 240 240 Balance 240 240 Weight 62.9 kg Intake: Oral 240 240 Other: Voiding Method Bedside Commode Bedside Commode - Exam General: The patient is awake and alert, in no distress Eye: there is normal conjunctiva bilaterally. Neck: The neck is supple, there is no JVD. Cardiovascular: Irregularly irregular. Normal S1-S2, no S3-S4, no murmurs. Respiratory: Lungs clear to auscultation bilaterally Gastrointestinal: Abdomen is soft, nontender Musculoskeletal: There is no pedal edema. Neurological:. Speech is normal. Skin: Skin is warm and dry - Labs CBC & Chem 7: 05/20/21 09:43 05/19/21 02:34 Labs: Abnormal Lab Results - Last 24 Hours (Table) 05/19/21 05/19/21 05/20/21 Range/Units 17:13 20:11 05:59 Hgb (11.4-16.0) gm/dL Hct (34.0-46.0) % MCH (25.0-35.0) pg MCHC (31.0-37.0) g/dL RDW (11.5-15.5) % APTT (22.0-30.0) sec POC Glucose (mg/dL) 124 H 114 H 118 H (75-99) mg/dL 05/20/21 05/20/21 05/20/21 Range/Units 09:43 11:47 14:38 Hgb 9.5 L (11.4-16.0) gm/dL Hct 31.5 L (34.0-46.0) % MCH 24.2 L (25.0-35.0) pg MCHC 30.1 L (31.0-37.0) g/dL RDW 16.8 H (11.5-15.5) % APTT 37.7 H (22.0-30.0) sec POC Glucose (mg/dL) 126 H (75-99) mg/dL Assessment and Plan Assessment: This is a 80-year-old female who presented to the emergency room with presyncopal episode. Patient was evaluated and placed on observation for further management of her medical problems noted below. 1. Symptomatic bradycardia, heart rate is fluctuating on the monitor. Home dose of metoprolol was discontinued. Cardiology consulted for further evaluation. Plan for pacemaker implantation tomorrow 2. Hypomagnesemia, replaced 3. Chronic atrial fibrillation on anticoagulation with Rivaroxaban, currently on hold in anticipation for procedure 4. Type 2 diabetes: Hold home dose of metformin and continue sliding scale i nsulin 5. Essential hypertension, blood pressure not well controlled. Home dose of hydralazine increased to 75 mg 3 times a day 6. Hyperlipidemia 7. CODE STATUS: Patient is full code
[2021-05-20] MEDS: HEPARIN SODIUM 1,000 UN/ML (10ML VL) IV PRN ×2 (16:28→23:26)
[2021-05-20 17:02] LABS: Glucose,Whole Blood 99 mg/dL (75-99)
[2021-05-20 20:11] LABS: Glucose,Whole Blood 118 mg/dL (75-99)
[2021-05-20] MEDS: lisinopriL 20 MG TAB PO SCH (20:30)
[2021-05-20] MEDS: ATORVASTATIN 40 MG TAB PO SCH (20:30)
[2021-05-21 06:13] LABS: Glucose,Whole Blood 124 mg/dL (75-99)
[2021-05-21] MEDS: INSULIN ASPART (NovoLOG) 100 UNIT/ML VIAL SQ SCH ×4 (06:14→20:20)
[2021-05-21] MEDS: PANTOPRAZOLE 40 MG TABLET PO SCH (06:30)
[2021-05-21] MEDS: hydrALAZINE HCL 25 MG TAB PO SCH ×3 (06:30→18:19)
[2021-05-21] MEDS: CHOLECALCIFEROL 25 MCG (1000 IU) TABLET PO SCH (06:30)
[2021-05-21] MEDS ORDERED: LIDOCAINE 1% INJ 10MG/ML (20 ML MDV) ONE ×2 (07:22)
[2021-05-21] MEDS ORDERED: ceFAZolin 1,000 MG in SODIUM CHLORIDE 0.9% IRRIGATIO 250 ML IRRIGATION ONE (07:28)
[2021-05-21] MEDS ORDERED: IV FLUID CONTINUATION 350 ML IV ONE (07:50)
[2021-05-21] MEDS ORDERED: IOPAMIDOL-370 50ML BTL INJ ONE (08:10)
[2021-05-21] MEDS ORDERED: fentaNYL (PF) 50 MCG/ML 2 ML AMP ONE (08:32)
[2021-05-21] MEDS ORDERED: LIDOCAINE 1% INJ 10MG/ML (20 ML MDV) SQ ONE (08:32)
[2021-05-21] MEDS ORDERED: MIDAZOLAM 2 MG/2 ML VIAL IV ONE (08:35)
[2021-05-21] MEDS ORDERED: fentaNYL (PF) 50 MCG/ML 2 ML AMP IV ONE (08:35)
--- NOTE | 2021-05-21 09:17 | P.PCN ---
Date of Procedure: 05/21/21 Preoperative Diagnosis: Sick sinus syndrome with underlying atrial fibrillation associated with dizziness Postoperative Diagnosis: The same Procedure(s) Performed: Single-chamber permanent pacemaker implantation Description of Procedure: HISTORY: This is a 80-year-old female with history of persistent atrial fibrillation was admitted to the hospital with complaints of dizziness and bradycardia with long pauses with heart rates in the 30s. Because of tachybradycardia syndrome and associated with dizziness, patient is advised to have permanent pacemaker implantation. CONSENT:I have discussed the risks, benefits and alternative therapies for the above-mentioned procedure and for both sedation/analgesia as well as necessary blood product administration, if indicated, as they pertain to this patient. The patient has indicated understanding and acceptance of the risks and procedures discussed. PROCEDURE: Patient was brought to the lab in a fasting state. Patient was prepped and draped in the usual fashion. Patient was given IV sedation with fentanyl and Versed. The skin below the left clavicle was infiltrated with lidocaine. An incision was made parallel to deltopectoral groove was deepened until the pectoral fascia was exposed. A pocket was created by blunt dissection and cautery. Axillary venography was performed to delineate the course of the axillary vein. A single venous stick was w performed into extrathoracic portion of the axillary vein and a single sheath was advanced over the guidewires and left in subclavian vein. Conscious Sedation: Versed 1mg Fentanyl 50 g Duration 29minutes LEADS: VENTRICULAR: This is manufactured by [employer]. Model number is 5076-52. Serial number is [id number] The ventricular lead is maneuvered l with help of a straight and curved stylets into the left ventricle apical region. Satisfactory position was obtained and threshold measurements were made. And thresholds were obtained. THRESHOLDS: VENTRICLE: The minimum pacing threshold was 0.75 V at pulse width of 0.4 with impedance of 03/22/1984. R-wave: 12.5. 10 V test did not show any diaphragmatic stim ablation. The leads and pulse generator remained in the pocket after it was washed with antibiotics. Pocket was closed in the usual fashion. The fascia was closed with 2-0 Prolene ,the subcutaneous tissue was closed with 3-0 Prolene and the skin was closed with 4-0 Prolene. PROGRAMMING: MODE: VVIR RATE: 60- 130 OUTPUT: Ventricle: 3.5 FINAL IMPRESSION: #1. Axillary venography #2. Successful implantation of single-chamber pacemaker COMPLICATIONS: Non- PLAN: Patient will be monitored 124 hours. Anticoagulation will be started within next 24-48 hours. Antibiotics to be continued. Chest x-ray in the morning. Further examination depend upon clinical course
[2021-05-21 11:43] LABS: Anisocytosis Slight; Basophils % (A) 1 %; Eosinophils # (A) 0.1 k/uL (0-0.7); Eosinophils % (A) 2 %; HCT 28.7 % (34.0-46.0); HGB 8.9 gm/dL (11.4-16.0); Hypochromasia Moderate; Lymphocytes # (A) 1.7 k/uL (1.0-4.8); Lymphocytes % (A) 25 %; MCH 24.6 pg (25.0-35.0); MCHC 30.9 g/dL (31.0-37.0); MCV 79.7 fL (80.0-100.0); Mean Platelet Volume 7.9; Microcytosis Slight; Monocytes # (A) 0.7 k/uL (0-1.0); Monocytes % (A) 11 %; Neutrophils % (A) 60 %; Platelet Count 327 k/uL (150-450); RBC 3.61 m/uL (3.80-5.40); RDW 16.7 % (11.5-15.5); WBC 6.6 k/uL (3.8-10.6)
[2021-05-21 11:44] LABS: Glucose,Whole Blood 110 mg/dL (75-99)
[2021-05-21 11:46] LABS: INR 1.1 (<1.2); Prothrombin Time 11.2 sec (9.0-12.0)
[2021-05-21 12:07] LABS: African American GFR (CKD) >90 (>60 ml/min/1.73 sqM); Anion Gap 9 mmol/L; Blood Urea Nitrogen 13 mg/dL (7-17); Calcium 9.2 mg/dL (8.4-10.2); Carbon Dioxide 20 mmol/L (22-30); Chloride 111 mmol/L (98-107); Glucose 108 mg/dL (74-99); Magnesium 1.5 mg/dL (1.6-2.3); Non-African American GFR(CKD) 86 (>60 ml/min/1.73 sqM); Sodium 140 mmol/L (137-145)
[2021-05-21] MEDS: ACETAMINOPHEN TAB 325 MG TAB PO PRN ×2 (14:15→20:24)
[2021-05-21] MEDS: SODIUM CHLORIDE 0.9% 1,000 ML IV SCH (14:25)
[2021-05-21 16:48] LABS: Glucose,Whole Blood 111 mg/dL (75-99)
--- NOTE | 2021-05-21 17:30 | P.PN ---
Subjective Progress Note Date: 05/21/21 Patient is doing well today. She had pacemaker implantation this morning. No events reported by nursing staff. Objective - Vital Signs Vital signs: Vital Signs Temp 97.1 F L 05/21/21 09:50 Pulse 54 L 05/21/21 03:53 Resp 16 05/21/21 10:54 BP 136/87 05/21/21 10:54 Pulse Ox 96 05/21/21 10:24 Intake & Output 05/20/21 05/21/21 05/21/21 18:59 06:59 18:59 Intake Total 288.81 61.789 245 Balance 288.81 61.789 245 Weight 65.3 kg Intake: IV 125 Intake, IV Titration 48.81 61.789 Amount Heparin Sod,Pork in 0.45% 48.81 61.789 NaCl 25,000 unit In 0.45 % NaCl 1 250ml.bag @ 12 UNITS/KG/HR 7.548 mls/hr IV .Q24H JOHN Rx#: [id number] Oral 240 120 Other: Voiding Method Bedside Commode Bedside Commode # Voids 1 - Exam General: The patient is awake and alert, in no distress Eye: there is normal conjunctiva bilaterally. Neck: The neck is supple, there is no JVD. Cardiovascular: Irregularly irregular. Normal S1-S2, no S3-S4, no murmurs. Respiratory: Lungs clear to auscultation bilaterally Gastrointestinal: Abdomen is soft, nontender Musculoskeletal: There is no pedal edema. Neurological:. Speech is normal. Skin: Skin is warm and dry - Labs CBC & Chem 7: 05/21/21 10:34 05/21/21 10:34 Labs: Abnormal Lab Results - Last 24 Hours (Table) 05/20/21 05/21/21 05/21/21 Range/Units 20:09 06:12 10:34 RBC 3.61 L (3.80-5.40) m/uL Hgb 8.9 L (11.4-16.0) gm/dL Hct 28.7 L (34.0-46.0) % MCV 79.7 L (80.0-100.0) fL MCH 24.6 L (25.0-35.0) pg MCHC 30.9 L (31.0-37.0) g/dL RDW 16.7 H (11.5-15.5) % Chloride (98-107) mmol/L Carbon Dioxide (22-30) mmol/L Glucose (74-99) mg/dL POC Glucose (mg/dL) 118 H 124 H (75-99) mg/dL Magnesium (1.6-2.3) mg/dL 05/21/21 05/21/21 05/21/21 Range/Units 10:34 11:43 16:36 RBC (3.80-5.40) m/uL Hgb (11.4-16.0) gm/dL Hct (34.0-46.0) % MCV (80.0-100.0) fL MCH (25.0-35.0) pg MCHC (31.0-37.0) g/dL RDW (11.5-15.5) % Chloride 111 H (98-107) mmol/L Carbon Dioxide 20 L (22-30) mmol/L Glucose 108 H (74-99) mg/dL POC Glucose (mg/dL) 110 H 111 H (75-99) mg/dL Magnesium 1.5 L (1.6-2.3) mg/dL Assessment and Plan Assessment: This is a 80-year-old female who presented to the emergency room with presyncopal episode. Patient was evaluated and placed on observation for further management of her medical problems noted below. 1. Symptomatic bradycardia, status post pacemaker implantation. Home dose of metoprolol was discontinued. Thyroid function tests within normal range. 2. Hypomagnesemia, replaced. Will be discharged home on magnesium supplement 3. Chronic atrial fibrillation on anticoagulation with Rivaroxaban, currently on hold . Resume tomorrow 4. Type 2 diabetes: Hold home dose of metformin and continue sliding scale insulin 5. Essential hypertension, blood pressure not well controlled. Home dose of hydralazine increased to 75 mg 3 times a day 6. Hyperlipidemia 7. CODE STATUS: Patient is full code Chest x-ray and repeat lab work in the morning. Consider discharge home tomorrow.
[2021-05-21] MEDS: MAGNESIUM SULFATE-D5W PMX 1 GM in DEXTROSE/WATER 1 100ML.BAG IVPB SCH ×2 (18:13→20:23)
[2021-05-21 20:19] LABS: Glucose,Whole Blood 141 mg/dL (75-99)
[2021-05-21] MEDS: ATORVASTATIN 40 MG TAB PO SCH (20:24)
[2021-05-21] MEDS: lisinopriL 20 MG TAB PO SCH (20:24)
[2021-05-21 23:13] LABS: Glucose,Whole Blood 149 mg/dL (75-99)
--- NOTE | 2021-05-21 23:41 | CT ---
CT scan of the brain. History weakness. Comparison none. FINDINGS: There is some hypodensity in the white matter both parietal lobes. There is no mass effect nor midlin e shift. There is no sign of intracranial hemorrhage. There is mild cerebral atrophy. The calvarium i s intact. There is normal aeration of the mastoid sinuses. IMPRESSION: Cerebral atrophy. Mild chronic small vessel ischemia. No hemorrhage.
[2021-05-21] MEDS ORDERED: cloNIDine HCL 0.2 MG TAB PO PRN (23:42)
[2021-05-22 00:23] LABS: Anisocytosis Slight; Basophils # (A) 0.1 k/uL (0-0.2); Basophils % (A) 1 %; Eosinophils # (A) 0.2 k/uL (0-0.7); Eosinophils % (A) 2 %; HGB 9.1 gm/dL (11.4-16.0); Hypochromasia Marked; Lymphocytes % (A) 22 %; MCH 24.5 pg (25.0-35.0); MCHC 30.3 g/dL (31.0-37.0); MCV 80.7 fL (80.0-100.0); Mean Platelet Volume 7.5; Microcytosis Slight; Monocytes % (A) 11 %; Neutrophils # (A) 5.4 k/uL (1.3-7.7); Neutrophils % (A) 61 %; Platelet Count 332 k/uL (150-450); RBC 3.72 m/uL (3.80-5.40); RDW 16.5 % (11.5-15.5); WBC 8.9 k/uL (3.8-10.6)
[2021-05-22 00:46] LABS: Prothrombin Time 10.6 sec (9.0-12.0)
[2021-05-22 00:53] LABS: Partial Thromboplastin Time 21.5 sec (22.0-30.0)
[2021-05-22 00:55] LABS: Albumin 3.5 g/dL (3.5-5.0); Calcium 8.8 mg/dL (8.4-10.2); Potassium 3.5 mmol/L (3.5-5.1); Total Bilirubin 0.4 mg/dL (0.2-1.3); Total Protein 5.9 g/dL (6.3-8.2)
[2021-05-22] MEDS: ACETAMINOPHEN TAB 325 MG TAB PO PRN ×3 (02:02→20:00)
[2021-05-22 06:35] LABS: Glucose,Whole Blood 139 mg/dL (75-99)
[2021-05-22] MEDS: INSULIN ASPART (NovoLOG) 100 UNIT/ML VIAL SQ SCH ×4 (06:43→20:01)
[2021-05-22] MEDS: hydrALAZINE HCL 25 MG TAB PO SCH (06:43)
[2021-05-22] MEDS: PANTOPRAZOLE 40 MG TABLET PO SCH (06:43)
--- NOTE | 2021-05-22 07:48 | XR ---
EXAMINATION TYPE: XR chest 2V DATE OF EXAM: 05/22/2021 COMPARISON: 05/18/2021 INDICATION: Lead placement check TECHNIQUE: Single frontal view of the chest is obtained. FINDINGS: The heart size is normal. The pulmonary vasculature is upper limits of normal. Some nodularity is at the right lung base. Follow-up is recommended. There is placement of electronic device overlying the left chest. Single lead is present. No pneumoth orax is evident. The is directed towards the inferior cardiac apex. IMPRESSION: 1. No pneumothorax post pacemaker placement.
[2021-05-22] MEDS: MAGNESIUM OXIDE 400 MG TAB PO SCH (09:05)
[2021-05-22] MEDS: CHOLECALCIFEROL 25 MCG (1000 IU) TABLET PO SCH (09:05)
[2021-05-22 10:00] LABS: Anisocytosis Slight; Basophils % (A) 1 %; Eosinophils # (A) 0.1 k/uL (0-0.7); Eosinophils % (A) 2 %; HCT 28.5 % (34.0-46.0); HGB 9.1 gm/dL (11.4-16.0); Hypochromasia Moderate; Lymphocytes % (A) 14 %; MCH 25.5 pg (25.0-35.0); MCHC 31.8 g/dL (31.0-37.0); MCV 80.1 fL (80.0-100.0); Mean Platelet Volume 7.7; Microcytosis Slight; Monocytes # (A) 0.7 k/uL (0-1.0); Monocytes % (A) 9 %; Neutrophils # (A) 5.4 k/uL (1.3-7.7); Neutrophils % (A) 74 %; Platelet Count 331 k/uL (150-450); RBC 3.56 m/uL (3.80-5.40); RDW 16.6 % (11.5-15.5); WBC 7.3 k/uL (3.8-10.6)
[2021-05-22 10:16] LABS: African American GFR (CKD) >90 (>60 ml/min/1.73 sqM); Anion Gap 9 mmol/L; Blood Urea Nitrogen 10 mg/dL (7-17); Carbon Dioxide 21 mmol/L (22-30); Chloride 109 mmol/L (98-107); Glucose 160 mg/dL (74-99); Non-African American GFR(CKD) 85 (>60 ml/min/1.73 sqM); Potassium 3.8 mmol/L (3.5-5.1); Sodium 139 mmol/L (137-145)
[2021-05-22] MEDS ORDERED: lisinopriL 20 MG TAB PO STA (11:51)
[2021-05-22 12:04] LABS: Glucose,Whole Blood 111 mg/dL (75-99)
[2021-05-22] MEDS: hydrALAZINE HCL 50 MG TAB PO SCH ×2 (12:53→17:45)
--- NOTE | 2021-05-22 13:17 | P.PN ---
Subjective Progress Note Date: 05/22/21 HISTORY OF PRESENT ILLNESS: This is a 80-year-old female with a past medical history significant for paroxysmal atrial fibrillation, CVA, diabetes mellitus, GERD, hypertension, hyperlipidemia, diverticulosis with recent small bowel resection in February 2021, and coronary artery disease. Patient follows in the office with Dr. Carias. We have been asked to see the patient in consultation for presyncope. Patient examined at the bedside in the emergency room. Patient states yesterday around 10am she began to feel lightheaded and as if she was going to pass out. She denied having any syncopal episodes though. She denies chest pain or pressure. Denies shortness of breath. Denies nausea or vomiting. Denies cough or congestion. Patient is currently in atrial fibrillation with a heart rate ranging from 20-50 during examination. She is on metoprolol 50mg BID at home which is currently on hold. EKG reveals atrial fibrillation with slow ventricular rate Chest xray mild cardiomegaly. There may be underlying pulmonary arterial hypertension. Old calcified granuloma at the right base. Interstitial prominence could reflect mild pulmonary vascular congestion, bronchitis, or c hronic asthma. Laboratory data: WBC 10.1. Hemoglobin 9.4. Platelet count 354. Sodium 137. Potassium 4.2. BUN 15. Creatinine 0.66. Current home cardiac medications include hydralazine 50 mg 3 times a day, Xarelto 20 mg daily, metoprolol tartrate 51 g twice a day, Lipitor 40mg daily, aspirin 81 g daily, lisinopril 20 mg daily Most recent echocardiogram obtained in 2019 revealed mild aortic valve sclerosis, mild aortic regurgitation, mild mitral regurgitation, mild mitral stenosis, mild tricuspid regurgitation, and mild pulmonary hypertension Patient underwent a premium stress echo in May 2020 revealing evidence of prior inferior wall myocardial infarction with preserved LV function without any stress-induced ischemia Patient underwent cardiac catheterization in 2014 revealing heavily calcified coronary system without any critical stenosis 05/22/2021 Patient examined this morning at the bedside. Patient is status post permanent pacemaker insertion. Patient developed some tingling in her right hand and face yesterday. A code stroke was called. Patient underwent CT of the brain which was negative for an acute process. Her Xarelto remains on hold. Chest x-ray postprocedure does not reveal evidence of pneumothorax PHYSICAL EXAM: VITAL SIGNS: Reviewed. GENERAL: Well-developed in no acute distress. HEENT: Head is normocephalic. Pupils are equal, round. Sclerae anicteric. Mucous membranes of the mouth are moist. Neck supple. No JVD or thyromegaly. + bruit. LUNGS: Respirations even and unlabored. Lungs essentially clear to auscultation bilaterally. HEART: Regular rate and rhythm. S1 and S2 heard. Systolic murmur noted ABDOMEN: Soft. Nondistended. Nontender. EXTREMITIES: Normal range of motion. No clubbing or cyanosis. Peripheral pulses intact. No lower extremity edema NEUROLOGIC: Awake and alert. Oriented x 3. ASSESSMENT: Pre-Syncope Symptomatic bradycardia, status post pacemaker insertion Paroxysmal atrial fibrillation, on anticoagulation with Xarelto Hypertension Hyperlipidemia History of CVA Diabetes mellitus GERD History of diverticulosis with recent small bowel resection, February 2021 Valvular heart disease Tingling of right arm and face, rule out TIA/CVA PLAN: Continue telemetry monitoring Continue current cardiac medications Neurology has been consulted. Resume Xarelto tonight if okay with neurology Further recommendations pending patient's course Nurse practitioner note has been reviewed by physician. Signing provider agrees with the documented findings, assessment, and plan of care. Objective - Vital Signs Vital signs: Vital Signs Temp 98.1 F 05/22/21 08:00 Pulse 62 05/22/21 08:00 Resp 16 05/22/21 08:00 BP 171/74 05/22/21 08:00 Pulse Ox 97 05/22/21 08:00 Intake & Output 05/21/21 05/22/21 05/22/21 18:59 06:59 18:59 Intake Total 605 240 Balance 605 240 Weight 64.1 kg Intake: IV 125 Oral 480 240 Other: Voiding Method Bedside Commode Bedside Commode Bedside Commode # Voids 1 # Bowel Movements 1 - Labs CBC & Chem 7: 05/22/21 09:30 05/22/21 09:30 Labs: Abnormal Lab Results - Last 24 Hours (Table) 05/21/21 05/21/21 05/21/21 Range/Units 16:36 17:37 20:17 RBC (3.80-5.40) m/uL Hgb (11.4-16.0) gm/dL Hct (34.0-46.0) % MCH (25.0-35.0) pg MCHC (31.0-37.0) g/dL RDW (11.5-15.5) % APTT (22.0-30.0) sec Chloride (98-107) mmol/L Carbon Dioxide (22-30) mmol/L Glucose (74-99) mg/dL POC Glucose (mg/dL) 111 H 141 H (75-99) mg/dL Magnesium 1.4 L (1.6-2.3) mg/dL Troponin I (0.000-0.034) ng/mL Total Protein (6.3-8.2) g/dL 05/21/21 05/22/21 05/22/21 Range/Units 23:12 00:03 00:03 RBC 3.72 L (3.80-5.40) m/uL Hgb 9.1 L (11.4-16.0) gm/dL Hct 30.0 L (34.0-46.0) % MCH 24.5 L (25.0-35.0) pg MCHC 30.3 L (31.0-37.0) g/dL RDW 16.5 H (11.5-15.5) % APTT 21.5 L (22.0-30.0) sec Chloride (98-107) mmol/L Carbon Dioxide (22-30) mmol/L Glucose (74-99) mg/dL POC Glucose (mg/dL) 149 H (75-99) mg/dL Magnesium (1.6-2.3) mg/dL Troponin I (0.000-0.034) ng/mL Total Protein (6.3-8.2) g/dL 05/22/21 05/22/21 05/22/21 Range/Units 00:03 00:03 06:34 RBC (3.80-5.40) m/uL Hgb (11.4-16.0) gm/dL Hct (34.0-46.0) % MCH (25.0-35.0) pg MCHC (31.0-37.0) g/dL RDW (11.5-15.5) % APTT (22.0-30.0) sec Chloride 108 H (98-107) mmol/L Carbon Dioxide 19 L (22-30) mmol/L Glucose 137 H (74-99) mg/dL POC Glucose (mg/dL) 139 H (75-99) mg/dL Magnesium (1.6-2.3) mg/dL Troponin I 0.056 H* (0.000-0.034) ng/mL Total Protein 5.9 L (6.3-8.2) g/dL 05/22/21 05/22/21 05/22/21 Range/Units 09:30 09:30 12:02 RBC 3.56 L (3.80-5.40) m/uL Hgb 9.1 L (11.4-16.0) gm/dL Hct 28.5 L (34.0-46.0) % MCH (25.0-35.0) pg MCHC (31.0-37.0) g/dL RDW 16.6 H (11.5-15.5) % APTT (22.0-30.0) sec Chloride 109 H (98-107) mmol/L Carbon Dioxide 21 L (22-30) mmol/L Glucose 160 H (74-99) mg/dL POC Glucose (mg/dL) 111 H (75-99) mg/dL Magnesium (1.6-2.3) mg/dL Troponin I (0.000-0.034) ng/mL Total Protein (6.3-8.2) g/dL
--- NOTE | 2021-05-22 16:26 | P.PN ---
Subjective Progress Note Date: 05/22/21 Patient appeared more confused compared to yesterday. She had a stroke last night because of complaint of right hand numbness. Today, patient complained of persistent numbness in the right hand. She is. Cystically saying that she has a stroke and she told me that she had strokes in the past and knows exactly what is stroke feels like. I asked her to let elaborate further but her symptoms she denies any headache, numbness or tingling anywhere in her body other than her right hand. No weakness anywhere. Objective - Vital Signs Vital signs: Vital Signs Temp 98.1 F 05/22/21 08:00 Pulse 62 05/22/21 08:00 Resp 16 05/22/21 08:00 BP 171/74 05/22/21 08:00 Pulse Ox 97 05/22/21 08:00 Intake & Output 05/21/21 05/22/21 05/22/21 18:59 06:59 18:59 Intake Total 605 480 Balance 605 480 Weight 64.1 kg Intake: IV 125 Oral 480 480 Other: Voiding Method Bedside Commode Bedside Commode Bedside Commode # Voids 1 # Bowel Movements 1 - Exam General: The patient is awake and alert, in no distress Eye: there is normal conjunctiva bilaterally. Neck: The neck is supple, there is no JVD. Cardiovascular: Irregularly irregular. Normal S1-S2, no S3-S4, no murmurs. Respiratory: Lungs clear to auscultation bilaterally Gastrointestinal: Abdomen is soft, nontender Musculoskeletal: There is no pedal edema. Neurological:. Speech is normal. Skin: Skin is warm and dry - Labs CBC & Chem 7: 05/22/21 09:30 05/22/21 09:30 Labs: Abnormal Lab Results - Last 24 Hours (Table) 05/21/21 05/21/21 05/21/21 Range/Units 16:36 17:37 20:17 RBC (3.80-5.40) m/uL Hgb (11.4-16.0) gm/dL Hct (34.0-46.0) % MCH (25.0-35.0) pg MCHC (31.0-37.0) g/dL RDW (11.5-15.5) % APTT (22.0-30.0) sec Chloride (98-107) mmol/L Carbon Dioxide (22-30) mmol/L Glucose (74-99) mg/dL POC Glucose (mg/dL) 111 H 141 H (75-99) mg/dL Magnesium 1.4 L (1.6-2.3) mg/dL Troponin I (0.000-0.034) ng/mL Total Protein (6.3-8.2) g/dL 05/21/21 05/22/21 05/22/21 Range/Units 23:12 00:03 00:03 RBC 3.72 L (3.80-5.40) m/uL Hgb 9.1 L (11.4-16.0) gm/dL Hct 30.0 L (34.0-46.0) % MCH 24.5 L (25.0-35.0) pg MCHC 30.3 L (31.0-37.0) g/dL RDW 16.5 H (11.5-15.5) % APTT 21.5 L (22.0-30.0) sec Chloride (98-107) mmol/L Carbon Dioxide (22-30) mmol/L Glucose (74-99) mg/dL POC Glucose (mg/dL) 149 H (75-99) mg/dL Magnesium (1.6-2.3) mg/dL Troponin I (0.000-0.034) ng/mL Total Protein (6.3-8.2) g/dL 05/22/21 05/22/21 05/22/21 Range/Units 00:03 00:03 06:34 RBC (3.80-5.40) m/uL Hgb (11.4-16.0) gm/dL Hct (34.0-46.0) % MCH (25.0-35.0) pg MCHC (31.0-37.0) g/dL RDW (11.5-15.5) % APTT (22.0-30.0) sec Chloride 108 H (98-107) mmol/L Carbon Dioxide 19 L (22-30) mmol/L Glucose 137 H (74-99) mg/dL POC Glucose (mg/dL) 139 H (75-99) mg/dL Magnesium (1.6-2.3) mg/dL Troponin I 0.056 H* (0.000-0.034) ng/mL Total Protein 5.9 L (6.3-8.2) g/dL 05/22/21 05/22/21 05/22/21 Range/Units 09:30 09:30 12:02 RBC 3.56 L (3.80-5.40) m/uL Hgb 9.1 L (11.4-16.0) gm/dL Hct 28.5 L (34.0-46.0) % MCH (25.0-35.0) pg MCHC (31.0-37.0) g/dL RDW 16.6 H (11.5-15.5) % APTT (22.0-30.0) sec Chloride 109 H (98-107) mmol/L Carbon Dioxide 21 L (22-30) mmol/L Glucose 160 H (74-99) mg/dL POC Glucose (mg/dL) 111 H (75-99) mg/dL Magnesium (1.6-2.3) mg/dL Troponin I (0.000-0.034) ng/mL Total Protein (6.3-8.2) g/dL Assessment and Plan Assessment: This is a 80-year-old female who presented to the emergency room with presyncopal episode. Patient was evaluated and placed on observation for further management of her medical problems noted below. 1. Symptomatic bradycardia, status post pacemaker implantation. Home dose of metoprolol was discontinued. Thyroid function tests within normal range. 2. Hypomagnesemia, replaced. Will be discharged home on magnesium supplement 3. Chronic atrial fibrillation on anticoagulation with Rivaroxaban, currently on hold . Resume tomorrow 4. Type 2 diabetes: Hold home dose of metformin and continue sliding scale insulin 5. Essential hypertension, blood pressure not well controlled. Home dose of hydralazine increased to 75 mg 3 times a day 6. Hyperlipidemia 7. CODE STATUS: Patient is full code Awaiting neurology evaluation
[2021-05-22 17:02] LABS: Glucose,Whole Blood 128 mg/dL (75-99)
--- NOTE | 2021-05-22 19:19 | P.CNNES ---
History of Present Illness Consult date: 05/22/21 Reason for Consult: Code stroke History of Present Illness: The patient is an 80-year-old female who is seen in neurologic consultation on May 22, 2021, via teleneurology. The patient was reportedly seen because of a "code stroke". History is obtained from the patient's nurse as well as the patient herself. The patient reports that she had sudden onset of numbness her right lip and hand yesterday night at about 11 PM. She also reports difficulty with word finding. A code stroke was called and the patient was taken for a stat CT scan of the brain. Imaging was negative for acute ischemia and hemorrhage. The patient was originally admitted to the hospital for near syncope and symptomatic bradycardia. According to the emergency department note, patient's heart rate on telemetry was ranging between 40 and 60 and was irregularly irregular. Patient had episodes of bradycardia, down into the 30s. The patient subsequently had a pacemaker placed yesterday, May 21, 2021. In reviewing the notes, the patient's sister also was placed on hold for the procedure. Pacemaker placement procedure was uncomplicated. Today, the patient reports that her right hand continues to be numb. She said she had difficulty walking early this morning but is able to walk now. She said last night she had quite a severe headache at the onset of her symptoms. She says that her hand felt funny. The patient insists that she had a stroke. She says "I've had a stroke before I know what it feels like". The patient denies difficulty swallowing. She reports visual changes however has a difficult time actually describing them to me. She says she is continuing to have difficulty getting some of her words out. The patient's previous stroke reportedly left her with a right facial droop. Past Medical History Past Medical History: Atrial Fibrillation, Cancer, CVA/TIA, Diabetes Mellitus, GERD/Reflux, Hyperlipidemia, Hypertension, Osteoarthritis (OA), Syncope Additional Past Medical History / Comment(s): Osteoporosis, hiatal hernia, diverticulosis, polyps, cervical cancer, DJD, recent hospitalization for small bowel obstruction & had surgery in February 2021. History of Any Multi-Drug Resistant Organisms: None Reported Past Surgical History: Back Surgery, Bowel Resection, Heart Catheterization, Hysterectomy Additional Past Surgical History / Comment(s): EGD, Colonoscopy, bilateral cataract removed, "fatty tumor" removed from her back, exp. laparotomy w/small bowel resection Past Anesthesia/Blood Transfusion Reactions: No Reported Reaction, Motion Sickness Additional Past Anesthesia/Blood Transfusion Reaction / Comment(s): Pt has never recieved blood. SON "CODED" POST HIP REPLACEMENT Past Psychological History: Anxiety Additional Psychological History / Comment(s): Pt lives alone. 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 She uses no assistive devices or home care. She drives. Smoking Status: Former smoker Past Alcohol Use History: None Reported Additional Past Alcohol Use History / Comment(s): Pt states she smoked for about 52 yrs 1 ppd and eventually up to 1 / ppd but quit in 2008. Past Drug Use History: None Reported - Past Family History Father Family Medical History: Myocardial Infarction (DE) Additional Family Medical History / Comment(s): Father of a DE at age 76yrs. Mother Family Medical History: CVA/TIA Additional Family Medical History / Comment(s): Mother had a CVA at age 88yrs. She at age 92yrs. Medications and Allergies Home Medications Medication Instructions Recorded Confirmed Type metFORMIN HCL [Glucophage] 500 mg PO BID 07/02/15 05/18/21 History Aspirin 81 mg PO DAILY #1 chewable 07/04/15 05/18/21 Rx Cinnamon Bark [Cinnamon] 500 mg PO DAILY 07/15/15 05/18/21 History Vits A,C,E/Lutein/Minerals 1 tab PO DAILY 07/15/15 05/18/21 History [Ocuvite with Lutein Tablet] Atorvastatin [Lipitor] 40 mg PO HS 04/05/17 05/18/21 History lisinopriL [Zestril] 20 mg PO HS 04/14/17 05/18/21 History Rivaroxaban [Xarelto] 20 mg PO AC-SUPPER 01/22/19 05/18/21 History Omeprazole 20 mg PO HS 09/10/19 05/18/21 History Metoprolol Tartrate [Lopressor] 50 mg PO BID 10/20/20 05/18/21 History hydrALAZINE HCL [Apresoline] 50 mg PO AC-TID #0 10/21/20 05/18/21 Rx Cholecalciferol [Vitamin D3 (25 25 mcg PO DAILY 02/18/21 05/18/21 History Mcg = 1000 Iu)] Nitrofurantoin Monohyd/M-Cryst 100 mg PO Q12HR 05/18/21 05/18/21 History [Macrobid] Allergies Allergy/AdvReac Type Severity Reaction Status Date / Time amlodipine Allergy Anaphylaxis Verified 05/18/21 16:15 isosorbide mononitrate Allergy Rash/Hives Verified 05/18/21 16:15 [From Imdur] Physical Examination - Vital Signs Vital Signs: Vital Signs Temp Pulse Pulse Resp BP BP Pulse Ox 05/22/21 06:07 61 17 169/63 99 05/22/21 04:07 63 17 151/61 99 05/22/21 04:00 97.9 F 64 17 153/61 98 05/22/21 03:07 63 17 164/70 99 05/22/21 02:00 67 17 05/22/21 01:58 61 17 177/63 99 05/22/21 01:07 92 17 186/64 99 05/22/21 01:00 61 17 168/66 99 05/22/21 00:45 62 17 172/65 99 05/22/21 00:30 62 17 167/67 99 05/22/21 00:15 59 L 17 149/72 99 05/22/21 00:06 70 17 172/53 99 05/22/21 00:00 97.8 F 67 17 169/60 98 05/21/21 23:51 67 17 160/70 99 05/21/21 23:36 68 18 159/62 100 05/21/21 23:21 69 16 156/60 99 05/21/21 23:06 97.9 F 70 17 185/77 98 05/21/21 20:54 97.9 F 63 17 179/72 97 05/21/21 20:00 97.9 F 63 17 179/72 97 05/21/21 16:00 97.7 F 76 16 159/53 96 05/21/21 14:00 16 05/21/21 12:54 60 16 157/62 96 Intake and Output 05/21/21 05/22/21 05/22/21 22:59 06:59 14:59 Intake Total 360 240 Balance 360 240 Intake: Oral 360 240 Other: Voiding Method Bedside Commode Bedside Commode # Voids 1 # Bowel Movements 1 Weight 64.1 kg Gen.: The patient is seated on the edge of the bed. She is well-nourished, well-developed and in no acute distress. She has her left arm in a sling. HEENT: Head is atraumatic, normocephalic. Fundus not visualized. There is no scleral icterus. Mucous membranes are moist. Neck: Supple without carotid bruits Heart: Regular rate and rhythm Extremities: Without edema Neurological examination Mental status: The patient's awake, alert and oriented to her name, date of , age. She is able to provide a history without difficulty. She is unable to report the current year or president. She is unable to name the previous president. She is unable to name the governor [facility]. There is no anomia. The patient is able to accurately repeat phrases. The patient's speech is clear. There is no dysarthria. Cranial nerves: Pupils are equal at 2 mm and reactive. Visual callejas are full to confrontation. Extraocular movements are intact. There is no nystagmus. Facial sensation is intact. There is mild flattening of the right nasal labial fold, at rest. Smile is symmetric with activation. Hearing is grossly intact. Uvula and palate are midline. Shoulder shrug is symmetric. Tongue protrudes midline. Motor: Right upper extremity strength is 5/5. Bilateral lower extremity strength 5/5. Sensation: Intact to light touch throughout. There is no extinction with double simultaneous stimulation. Coordination: Finger to nose testing is intact on the right. Left is not as sessed. Deep tendon reflexes: 2+/4+ throughout. Results - Laboratory Findings CBC and BMP: 05/22/21 09:30 05/22/21 09:30 Abnormal Lab Findings: Abnormal Labs 05/18/21 05/18/21 05/18/21 14:50 14:50 14:50 RBC Hgb 10.3 L Hct 32.7 L MCV 79.5 L MCH 24.9 L MCHC RDW 16.9 H PT 12.2 H INR 1.2 H APTT Chloride Carbon Dioxide 20 L Glucose 114 H POC Glucose (mg/dL) Magnesium 1.5 L Troponin I Total Protein 05/18/21 05/18/21 05/19/21 18:45 21:42 02:34 RBC 3.78 L Hgb 9.4 L Hct 30.5 L MCV MCH 24.8 L MCHC 30.7 L RDW 16.7 H PT INR APTT Chloride Carbon Dioxide Glucose POC Glucose (mg/dL) 106 H 154 H Magnesium Troponin I Total Protein 05/19/21 05/19/21 05/19/21 02:34 07:01 11:59 RBC Hgb Hct MCV MCH MCHC RDW PT INR APTT Chloride 108 H Carbon Dioxide 20 L Glucose 118 H POC Glucose (mg/dL) 117 H 190 H Magnesium Troponin I Total Protein 05/19/21 05/19/21 05/19/21 15:49 17:13 20:11 RBC Hgb Hct MCV MCH MCHC RDW PT INR APTT Chloride Carbon Dioxide Glucose POC Glucose (mg/dL) 151 H 124 H 114 H Magnesium Troponin I Total Protein 05/20/21 05/20/21 05/20/21 05:59 09:43 11:47 RBC Hgb 9.5 L Hct 31.5 L MCV MCH 24.2 L MCHC 30.1 L RDW 16.8 H PT INR APTT Chloride Carbon Dioxide Glucose POC Glucose (mg/dL) 118 H 126 H Magnesium Troponin I Total Protein 05/20/21 05/20/21 05/21/21 14:38 20:09 06:12 RBC Hgb Hct MCV MCH MCHC RDW PT INR APTT 37.7 H Chloride Carbon Dioxide Glucose POC Glucose (mg/dL) 118 H 124 H Magnesium Troponin I Total Protein 05/21/21 05/21/21 05/21/21 10:34 10:34 11:43 RBC 3.61 L Hgb 8.9 L Hct 28.7 L MCV 79.7 L MCH 24.6 L MCHC 30.9 L RDW 16.7 H PT INR APTT Chloride 111 H Carbon Dioxide 20 L Glucose 108 H POC Glucose (mg/dL) 110 H Magnesium 1.5 L Troponin I Total Protein 05/21/21 05/21/21 05/21/21 16:36 17:37 20:17 RBC Hgb Hct MCV MCH MCHC RDW PT INR APTT Chloride Carbon Dioxide Glucose POC Glucose (mg/dL) 111 H 141 H Magnesium 1.4 L Troponin I Total Protein 05/21/21 05/22/21 05/22/21 23:12 00:03 00:03 RBC 3.72 L Hgb 9.1 L Hct 30.0 L MCV MCH 24.5 L MCHC 30.3 L RDW 16.5 H PT INR APTT 21.5 L Chloride Carbon Dioxide Glucose POC Glucose (mg/dL) 149 H Magnesium Troponin I Total Protein 05/22/21 05/22/21 05/22/21 00:03 00:03 06:34 RBC Hgb Hct MCV MCH MCHC RDW PT INR APTT Chloride 108 H Carbon Dioxide 19 L Glucose 137 H POC Glucose (mg/dL) 139 H Magnesium Troponin I 0.056 H* Total Protein 5.9 L 05/22/21 05/22/21 09:30 09:30 RBC 3.56 L Hgb 9.1 L Hct 28.5 L MCV MCH MCHC RDW 16.6 H PT INR APTT Chloride 109 H Carbon Dioxide 21 L Glucose 160 H POC Glucose (mg/dL) Magnesium Troponin I Total Protein Assessment and Plan Assessment: 1. The patient is an 80-year-old female with complaints of sudden onset numbness of her right hand, right facial tingling and difficulty with word finding-patient's current neurological examination is normal with the exception of difficulty recalling names of people. Patient is able to answer all other questions appropriately. She has no difficulty naming objects. This is unlikely to be a stroke. 2. Long history of chronic atrial fibrillation on Xaralto, on hold for pacemaker placement 3. Symptomatic bradycardia 4. The patient's baseline mental status is not known, consider mild confusion caused by hospitalization Plan: 1. MRI of brain without gadolinium to rule out ischemia 2. Restart anticoagulation when okay with cardiology 3. Will reassess patient and await MRI brain results Time with Patient: Greater than 30 (spent 40 minutes with patient via teleneurology)
[2021-05-22] MEDS: lisinopriL 20 MG TAB PO SCH (20:01)
[2021-05-22] MEDS: ATORVASTATIN 40 MG TAB PO SCH (20:01)
[2021-05-23 05:37] LABS: Glucose,Whole Blood 123 mg/dL (75-99)
[2021-05-23] MEDS: INSULIN ASPART (NovoLOG) 100 UNIT/ML VIAL SQ SCH ×4 (05:41→20:17)
[2021-05-23] MEDS: hydrALAZINE HCL 50 MG TAB PO SCH ×3 (06:25→20:54)
[2021-05-23] MEDS: PANTOPRAZOLE 40 MG TABLET PO SCH (06:25)
[2021-05-23] MEDS: CHOLECALCIFEROL 25 MCG (1000 IU) TABLET PO SCH (08:49)
[2021-05-23] MEDS: lisinopriL 20 MG TAB PO SCH ×2 (08:49→20:54)
[2021-05-23] MEDS: MAGNESIUM OXIDE 400 MG TAB PO SCH (08:49)
[2021-05-23] MEDS: ACETAMINOPHEN TAB 325 MG TAB PO PRN ×2 (08:53→15:09)
[2021-05-23 11:23] LABS: Glucose,Whole Blood 113 mg/dL (75-99)
[2021-05-23 11:53] LABS: Glucose,Whole Blood 171 mg/dL (75-99)
--- NOTE | 2021-05-23 14:18 | P.PN ---
Subjective Progress Note Date: 05/23/21 Patient is doing well today. She denies any complaint this morning. Right hand numbness has resolved. Her mentation is significantly better compared to yesterday. Objective - Vital Signs Vital signs: Vital Signs Temp 99.4 F 05/23/21 08:00 Pulse 74 05/23/21 08:00 Resp 18 05/23/21 08:00 BP 155/56 05/23/21 08:00 Pulse Ox 97 05/23/21 08:00 Intake & Output 05/22/21 05/23/21 05/23/21 18:59 06:59 18:59 Intake Total 720 0 Balance 720 0 Weight 39 kg Intake: Oral 720 0 Other: Voiding Method Bedside Commode Bedside Commode Toilet # Voids 1 # Bowel Movements 1 - Exam General: The patient is awake and alert, in no distress Eye: there is normal conjunctiva bilaterally. Neck: The neck is supple, there is no JVD. Cardiovascular: Irregularly irregular. Normal S1-S2, no S3-S4, no murmurs. Respiratory: Lungs clear to auscultation bilaterally Gastrointestinal: Abdomen is soft, nontender Musculoskeletal: There is no pedal edema. Neurological:. Speech is normal. Skin: Skin is warm and dry - Labs CBC & Chem 7: 05/22/21 09:30 05/22/21 09:30 Labs: Abnormal Lab Results - Last 24 Hours (Table) 05/22/21 05/22/21 05/23/21 Range/Units 17:01 19:48 05:34 POC Glucose (mg/dL) 128 H 171 H 123 H (75-99) mg/dL 05/23/21 Range/Units 11:22 POC Glucose (mg/dL) 113 H (75-99) mg/dL Assessment and Plan Assessment: This is a 80-year-old female who presented to the emergency room with presyncopal episode. Patient was evaluated and placed on observation for f urther management of her medical problems noted below. 1. Symptomatic bradycardia, status post pacemaker implantation. Home dose of metoprolol was discontinued. Thyroid function tests within normal range. 2. Hypomagnesemia, replaced. Will be discharged home on magnesium supplement 3. Chronic atrial fibrillation on anticoagulation with Rivaroxaban, currently on hold . Resume tomorrow 4. Type 2 diabetes: Hold home dose of metformin and continue sliding scale insulin 5. Essential hypertension, blood pressure not well controlled. Home dose of hydralazine increased to 100 mg 3 times a day 6. Hyperlipidemia 7. CODE STATUS: Patient is full code 8. Hospital-acquired delirium, patient was some confusion on and off. Computed tomography scan of the head showed no acute findings. Less likely a stroke. She was seen and evaluated by neurology. Unable to obtain an MRI as patient has a pacemaker. Awaiting urinalysis to rule out underlying UTI. PT/OT evaluation. Repeat lab work in the morning. Anticipate discharge home tomorrow.
--- NOTE | 2021-05-23 14:34 | P.PN ---
Subjective Progress Note Date: 05/23/21 HISTORY OF PRESENT ILLNESS: This is a 80-year-old female with a past medical history significant for paroxysmal atrial fibrillation, CVA, diabetes mellitus, GERD, hypertension, hyperlipidemia, diverticulosis with recent small bowel resection in February 2021, and coronary artery disease. Patient follows in the office with Dr. Carias. We have been asked to see the patient in consultation for presyncope. Patient examined at the bedside in the emergency room. Patient states yesterday around 10am she began to feel lightheaded and as if she was going to pass out. She denied having any syncopal episodes though. She denies chest pain or pressure. Denies shortness of breath. Denies nausea or vomiting. Denies cough or congestion. Patient is currently in atrial fibrillation with a heart rate ranging from 20-50 during examination. She is on metoprolol 50mg BID at home which is currently on hold. EKG reveals atrial fibrillation with slow ventricular rate Chest xray mild cardiomegaly. There may be underlying pulmonary arterial hypertension. Old calcified granuloma at the right base. Interstitial prominence could reflect mild pulmonary vascular congestion, bronchitis, or c hronic asthma. Laboratory data: WBC 10.1. Hemoglobin 9.4. Platelet count 354. Sodium 137. Potassium 4.2. BUN 15. Creatinine 0.66. Current home cardiac medications include hydralazine 50 mg 3 times a day, Xarelto 20 mg daily, metoprolol tartrate 51 g twice a day, Lipitor 40mg daily, aspirin 81 g daily, lisinopril 20 mg daily Most recent echocardiogram obtained in 2019 revealed mild aortic valve sclerosis, mild aortic regurgitation, mild mitral regurgitation, mild mitral stenosis, mild tricuspid regurgitation, and mild pulmonary hypertension Patient underwent a premium stress echo in May 2020 revealing evidence of prior inferior wall myocardial infarction with preserved LV function without any stress-induced ischemia Patient underwent cardiac catheterization in 2014 revealing heavily calcified coronary system without any critical stenosis 05/22/2021 Patient examined this morning at the bedside. Patient is status post permanent pacemaker insertion. Patient developed some tingling in her right hand and face yesterday. A code stroke was called. Patient underwent CT of the brain which was negative for an acute process. Her Xarelto remains on hold. Chest x-ray postprocedure does not reveal evidence of pneumothorax 05/23/2021 Patient examined this morning at the bedside. Patient is confused at the time of examination. Patient's pacemaker was interrogated yesterday and report was reviewed. Neurology evaluated the patient yesterday and cleared the patient to resume into quite elation. PHYSICAL EXAM: VITAL SIGNS: Reviewed. GENERAL: Well-developed in no acute distress. HEENT: Head is normocephalic. Pupils are equal, round. Sclerae anicteric. Mucous membranes of the mouth are moist. Neck supple. No JVD or thyromegaly. + bruit. LUNGS: Respirations even and unlabored. Lungs essentially clear to auscultation bilaterally. HEART: Regular rate and rhythm. S1 and S2 heard. Systolic murmur noted ABDOMEN: Soft. Nondistended. Nontender. EXTREMITIES: Normal range of motion. No clubbing or cyanosis. Peripheral pulses intact. No lower extremity edema ASSESSMENT: Pre-Syncope Symptomatic bradycardia, status post pacemaker insertion Paroxysmal atrial fibrillation, on anticoagulation with Xarelto Hypertension Hyperlipidemia History of CVA Diabetes mellitus GERD History of diverticulosis with recent small bowel resection, February 2021 Valvular heart disease Tingling of right arm and face, rule out TIA/CVA PLAN: Continue telemetry monitoring Continue current cardiac medications Resume Xarelto Neurology following Further recommendations pending patient's course Nurse practitioner note has been reviewed by physician. Signing provider agrees with the documented findings, assessment, and plan of care. Objective - Vital Signs Vital signs: Vital Signs Temp 99.4 F 05/23/21 08:00 Pulse 74 05/23/21 08:00 Resp 18 05/23/21 08:00 BP 155/56 05/23/21 08:00 Pulse Ox 97 05/23/21 08:00 Intake & Output 05/22/21 05/23/21 05/23/21 18:59 06:59 18:59 Intake Total 720 0 Balance 720 0 Weight 39 kg Intake: Oral 720 0 Other: Voiding Method Bedside Commode Bedside Commode Toilet # Voids 1 # Bowel Movements 1 - Labs CBC & Chem 7: 05/22/21 09:30 05/22/21 09:30 Labs: Abnormal Lab Results - Last 24 Hours (Table) 05/22/21 05/22/21 05/23/21 Range/Units 17:01 19:48 05:34 POC Glucose (mg/dL) 128 H 171 H 123 H (75-99) mg/dL 05/23/21 Range/Units 11:22 POC Glucose (mg/dL) 113 H (75-99) mg/dL
--- NOTE | 2021-05-23 16:51 | P.PN ---
Subjective Progress Note Date: 05/23/21 The patient is seen in neurologic follow-up on May 23, 2021, via teleneurology. the patient's [id number] was present at the bedside. She and the patient's nurse report that the patient has been much more confused today. She is also reportedly unable to stand. [id number] and the patient both report that the patient has had multiple urinary tract infections with similar symptoms of confusion. Patient denies numbness in her right face and hand. She reports sleeping well last night. She denies headache. According to the patient's [id number], the patient has never had a stroke. In speaking with the patient, it sounds as if the patient herself made this diagnosis, because she fe els her right eyebrow is lower than her left. Objective - Vital Signs Vital signs: Vital Signs Temp 99.4 F 05/23/21 08:00 Pulse 74 05/23/21 08:00 Resp 18 05/23/21 08:00 BP 155/56 05/23/21 08:00 Pulse Ox 97 05/23/21 08:00 Intake & Output 05/22/21 05/23/21 05/23/21 18:59 06:59 18:59 Intake Total 720 0 Balance 720 0 Weight 39 kg Intake: Oral 720 0 Other: Voiding Method Bedside Commode Bedside Commode Toilet # Voids 1 # Bowel Movements 1 - Exam Gen.: The patient is reclining in the bed. She is well-nourished and in no acute distress. HEENT: Head is atraumatic, normocephalic. Fundus not visualized. There is no scleral icterus. Mucous members are moist. Neurological examination Mental status: Patient is awake and alert. She is oriented to her name, date of , current year and month. She is unable to report the name of the vice admiral. Patient's speech is clear. Cranial nerves: 2-12 intact as tested. Eyebrows are symmetric. - Labs CBC & Chem 7: 05/22/21 09:30 05/22/21 09:30 Labs: Abnormal Lab Results - Last 24 Hours (Table) 05/22/21 05/22/21 05/23/21 Range/Units 17:01 19:48 05:34 POC Glucose (mg/dL) 128 H 171 H 123 H (75-99) mg/dL 05/23/21 Range/Units 11:22 POC Glucose (mg/dL) 113 H (75-99) mg/dL Assessment and Plan Assessment: In light of additional history from the patient's nurse as well as the patient's [id number], it appears that the patient is confused and this is not her normal baseline. It is important to rule out urinary tract infection as a cause for the patient's mental status changes. 1. The patient is an 80-year-old female with complaints of sudden onset numbness of her right hand, right facial tingling and difficulty with word finding-patient's current neurological examination is normal with the exception of difficulty recalling names of people. Patient is able to answer all other questions appropriately. She has no difficulty naming objects. This is unlikely to be a stroke. 2. Long history of chronic atrial fibrillation on Xaralto, on hold for pacemaker placement 3. Symptomatic bradycardia 4. The patient's baseline mental status is not known, consider mild confusion caused by hospitalization Plan: 1. MRI of the brain is unable to be done secondary to new, placement of pacemaker 2. Urinalysis and culture should be checked 3. Continue supportive care and frequent reorientation Time with Patient: Less than 30 (spent 25 minutes with patient via teleneurology)
[2021-05-23 16:56] LABS: Glucose,Whole Blood 107 mg/dL (75-99)
[2021-05-23] MEDS ORDERED: RIVAROXABAN 20 MG TAB PO SCH (17:30)
[2021-05-23 17:48] LABS: Appearance,Urine Clear (Clear); Bilirubin,Urine Negative (Negative); Blood,Urine Negative (Negative); Color,Urine Yellow; Glucose,Urine (UA) Negative (Negative); Hyaline Casts,Urine 4 /lpf (0-2); Ketones,Urine Trace (Negative); Leukocyte Esterase,Urine Negative (Negative); Mucus,Urine Rare /hpf; Nitrite,Urine Negative (Negative); Protein,Urine 2+ (Negative); RBC,Urine 2 /hpf (0-5); Specific Gravity,Urine 1.023 (1.001-1.035); Squamous Epithelial Cell,Urine 8 /hpf (0-4); Urobilinogen,Urine <2.0 mg/dL (<2.0); WBC,Urine 2 /hpf (0-5)
[2021-05-23 20:03] LABS: Glucose,Whole Blood 118 mg/dL (75-99)
[2021-05-23] MEDS: ATORVASTATIN 40 MG TAB PO SCH (20:54)
[2021-05-23] MEDS: MELATONIN 5 MG TABLET PO SCH (20:54)
[2021-05-24 06:09] LABS: Glucose,Whole Blood 113 mg/dL (75-99)
[2021-05-24] MEDS: INSULIN ASPART (NovoLOG) 100 UNIT/ML VIAL SQ SCH ×4 (06:26→21:17)
[2021-05-24] MEDS: hydrALAZINE HCL 50 MG TAB PO SCH ×3 (06:29→17:16)
[2021-05-24] MEDS: PANTOPRAZOLE 40 MG TABLET PO SCH (06:29)
[2021-05-24 08:35] LABS: Glucose,Whole Blood 115 mg/dL (75-99)
--- NOTE | 2021-05-24 09:02 | CT ---
EXAMINATION TYPE: CODE STROKE: CT brain wo contr DATE OF EXAM: 05/24/2021 COMPARISON: 05/21/2021 HISTORY: 80-year-old female code stroke, acute neurologic deficit. TECHNIQUE: Examination was done in axial plane without intravenous contrast. Coronal and sagittal r econstructions performed. CT DLP: 1100.4 mGycm Automated exposure control for dose reduction was used. FINDINGS: There is new cortical and subcortical hypodensity involving the posterior left parietal lobe extendin g into the inferior left occipital lobe. No evidence for acute intracranial hemorrhage, no midline shift or mass effect. No hydrocephalus. No extra-axial fluid collection. Paranasal sinuses and mastoid air cells well pneumatized. Orbits and globes are intact. IMPRESSION: Acute infarct posterior left parietal lobe extending into the inferior left occipital lobe. The degre e of hypodensity suggests greater than 6 hours in duration. No midline shift or hemorrhagic transform ation.
[2021-05-24 09:43] LABS: Anisocytosis Slight; Basophils % (A) 0 %; Eosinophils # (A) 0.2 k/uL (0-0.7); Eosinophils % (A) 2 %; HCT 26.8 % (34.0-46.0); HGB 8.3 gm/dL (11.4-16.0); Hypochromasia Marked; Lymphocytes # (A) 1.6 k/uL (1.0-4.8); Lymphocytes % (A) 18 %; MCH 24.8 pg (25.0-35.0); MCHC 30.9 g/dL (31.0-37.0); MCV 80.3 fL (80.0-100.0); Mean Platelet Volume 7.4; Microcytosis Slight; Monocytes # (A) 0.8 k/uL (0-1.0); Monocytes % (A) 9 %; Neutrophils # (A) 6.1 k/uL (1.3-7.7); Neutrophils % (A) 68 %; Platelet Count 332 k/uL (150-450); RBC 3.34 m/uL (3.80-5.40); RDW 16.6 % (11.5-15.5); WBC 8.9 k/uL (3.8-10.6)
[2021-05-24 09:59] LABS: ALT 8 U/L (4-34); AST 15 U/L (14-36); African American GFR (CKD) >90 (>60 ml/min/1.73 sqM); Albumin 2.7 g/dL (3.5-5.0); Alkaline Phosphatase 50 U/L (38-126); Anion Gap 9 mmol/L; Blood Urea Nitrogen 10 mg/dL (7-17); Calcium 8.1 mg/dL (8.4-10.2); Carbon Dioxide 18 mmol/L (22-30); Chloride 110 mmol/L (98-107); Glucose 101 mg/dL (74-99); Non-African American GFR(CKD) 86 (>60 ml/min/1.73 sqM); Potassium 3.4 mmol/L (3.5-5.1); Sodium 137 mmol/L (137-145); Total Bilirubin 0.5 mg/dL (0.2-1.3); Total Protein 5.1 g/dL (6.3-8.2)
--- NOTE | 2021-05-24 10:07 | CT ---
EXAMINATION TYPE: CODE STROKE: CTA head neck DATE OF EXAM: 05/24/2021 COMPARISON: CT head same date HISTORY: 80-year-old female with acute neurologic deficit, CODE STROKE TECHNIQUE: Contiguous axial scanning of the head and neck performed with IV Contrast, patient injecte d with 65 ml mL of Isovue 370. Coronal/sagittal MIP reconstructions performed. 3-D reconstructions ge nerated on a dedicated independent workstation. CT DLP: 354.3 mGycm Automated exposure control for dose reduction was used. FINDINGS: NECK: Precarinal lymph node appears to have increased in size at 1.7 cm now versus 1.2 cm, previously. Part ially visualized underlying small right effusion. Some septal lines in the upper lungs noted. Mild to moderate atherosclerotic arch calcifications. Conventional arch vessel branching anatomy. Vertebral artery origins are patent. Left vertebral artery is dominant. Scattered mild atheroscleroti c calcifications throughout the bilateral vertebral arteries. Mild to moderate atherosclerotic calcif ications at the junction of the V3/V4 segment left vertebral artery. Scattered mild atherosclerotic calcifications within the brachiocephalic and right common carotid art sarai. Mild to moderate atherosclerotic calcification at the right carotid bifurcation which changes resulti ng in a mild, 40% stenosis at the right carotid bulb by NASCET criteria. Moderate atherosclerotic calcifications left carotid bifurcation resulting in a moderate, approximate ly 60% stenosis at the left carotid bulb by NASCET criteria. Redemonstrated asymmetric thickening left aryepiglottic fold. HEAD: Vusi-sf-ourppaja atherosclerotic calcification V3/V4 junction left vertebral artery extending into th e proximal V4 left vertebral artery. Again, the left vertebral artery is dominant. Otherwise, both ve rtebral arteries as well as the basilar artery are patent The posterior P2 segment left posterior cerebral artery becomes severely diminutive, axial image 147, 149, and 152. There is adjacent venous contamination. Moderate scattered calcifications in the bilateral carotid siphons with scattered mild atheroscleroti c narrowing. The internal carotid arteries are patent as is the remainder of the anterior circulation. No aneurysmal changes identified. Dural venous sinuses are patent. IMPRESSION: NECK: 1. A precarinal lymph node in the mediastinum is increased in size at 1.7 cm versus 1.2 cm on 1. This may be reactive given the small right effusion and septal lines in the upper lungs. Correlate for mild CHF. Appropriate oncologic follow-up as indicated. 2. Atherosclerotic change at both bifurcations resulting in a moderate, approximately 60% proximal le ft ICA stenosis and mild, 40% proximal right ICA stenosis. 3. Incidental dominant left vertebral artery. HEAD: 4. Severe stenosis/subtotal occlusion posterior P2 segment left FLOOR WINDER corresponds to the vascular josé tory for the patient's acute left sided infarct.
[2021-05-24] MEDS ORDERED: HEPARIN SODIUM 1,000 UN/ML (10ML VL) IV PRN (11:04)
[2021-05-24] MEDS ORDERED: HEPARIN SOD,PORK IN 0.45% NACL 25,000 UNIT in 0.45% NACL 1 250ML.BAG IV SCH ×2 (11:15→11:30)
[2021-05-24] MEDS ORDERED: POTASSIUM CHLORIDE ER 10 MEQ TAB.ER.PRT PO STA (11:30)
--- NOTE | 2021-05-24 11:32 | P.PN ---
Subjective Progress Note Date: 05/24/21 HISTORY OF PRESENT ILLNESS: This is a 80-year-old female with a past medical history significant for paroxysmal atrial fibrillation, CVA, diabetes mellitus, GERD, hypertension, hyperlipidemia, diverticulosis with recent small bowel resection in February 2021, and coronary artery disease. Patient follows in the office with Dr. Carias. We have been asked to see the patient in consultation for presyncope. Patient examined at the bedside in the emergency room. Patient states yesterday around 10am she began to feel lightheaded and as if she was going to pass out. She denied having any syncopal episodes though. She denies chest pain or pressure. Denies shortness of breath. Denies nausea or vomiting. Denies cough or congestion. Patient is currently in atrial fibrillation with a heart rate ranging from 20-50 during examination. She is on metoprolol 50mg BID at home which is currently on hold. EKG reveals atrial fibrillation with slow ventricular rate Chest xray mild cardiomegaly. There may be underlying pulmonary arterial hypertension. Old calcified granuloma at the right base. Interstitial prominence could reflect mild pulmonary vascular congestion, bronchitis, or c hronic asthma. Laboratory data: WBC 10.1. Hemoglobin 9.4. Platelet count 354. Sodium 137. Potassium 4.2. BUN 15. Creatinine 0.66. Current home cardiac medications include hydralazine 50 mg 3 times a day, Xarelto 20 mg daily, metoprolol tartrate 51 g twice a day, Lipitor 40mg daily, aspirin 81 g daily, lisinopril 20 mg daily Most recent echocardiogram obtained in 2019 revealed mild aortic valve sclerosis, mild aortic regurgitation, mild mitral regurgitation, mild mitral stenosis, mild tricuspid regurgitation, and mild pulmonary hypertension Patient underwent a premium stress echo in May 2020 revealing evidence of prior inferior wall myocardial infarction with preserved LV function without any stress-induced ischemia Patient underwent cardiac catheterization in 2014 revealing heavily calcified coronary system without any critical stenosis 05/22/2021 Patient examined this morning at the bedside. Patient is status post permanent pacemaker insertion. Patient developed some tingling in her right hand and face yesterday. A code stroke was called. Patient underwent CT of the brain which was negative for an acute process. Her Xarelto remains on hold. Chest x-ray postprocedure does not reveal evidence of pneumothorax 05/23/2021 Patient examined this morning at the bedside. Patient is confused at the time of examination. Patient's pacemaker was interrogated yesterday and report was reviewed. Neurology evaluated the patient yesterday and cleared the patient to resume anticoagulation. 05/24/2021 Code stroke was called on the patient this morning as she was unable to move her left side. Patient underwent CT of the brain revealing acute infarct posterior left parietal lobe extending into the inferior left occipital lobe. The degree of hypodensity suggests greater than 6 hours in duration. No midline shift or hemorrhagic transformation. CTA head and neck reveals 60% proximal left ICA stenosis and mild 40% proximal right ICA stenosis. Severe stenosis/subtotal occlusion posterior P2 segment left [employer] DIV[employer] COMMANDING OFFICER corresponds to the vascular territory for the patient's acute left-sided infarct. Telemetry reveals paced rhythm with underlying atrial fibrillation. Vital signs stable. Blood pressure 134/64. PHYSICAL EXAM: VITAL SIGNS: Reviewed. GENERAL: Well-developed in no acute distress. HEENT: Head is normocephalic. Pupils are equal, round. Sclerae anicteric. Mucous membranes of the mouth are moist. Neck supple. No JVD or thyromegaly. + bruit. LUNGS: Respirations even and unlabored. Lungs essentially clear to auscultation bilaterally. HEART: Irregular rate and rhythm. S1 and S2 heard. Systolic murmur noted ABDOMEN: Soft. Nondistended. Nontender. EXTREMITIES: Normal range of motion. No clubbing or cyanosis. Peripheral pulses intact. No lower extremity edema ASSESSMENT: Pre-Syncope Symptomatic bradycardia, status post pacemaker insertion Paroxysmal atrial fibrillation, on anticoagulation with Xarelto Acute CVA with left sided weakness Hypertension Hyperlipidemia History of CVA Diabetes mellitus GERD History of diverticulosis with recent small bowel resection, February 2021 Valvular heart disease PLAN: Continue telemetry monitoring Continue current cardiac medications Neurology following. Await further recommendations from neurology regarding anticoagulation. Further recommendations pending patient's course Nurse practitioner note has been reviewed by physician. Signing provider agrees with the documented findings, assessment, and plan of care. Objective - Vital Signs Vital signs: Vital Signs Temp 98.1 F 05/24/21 08:25 Pulse 63 05/24/21 08:25 Resp 16 05/24/21 08:25 BP 134/64 05/24/21 08:25 Pulse Ox 97 05/24/21 08:25 Intake & Output 05/23/21 05/24/21 05/24/21 18:59 06:59 18:59 Intake Total 118 120 Output Total 100 300 Balance 18 -180 Weight 63 kg Intake: Oral 118 120 Output: Urine 100 300 Straight 100 Other: Voiding Method Toilet Toilet # Voids 1 - Labs CBC & Chem 7: 05/24/21 09:11 05/24/21 09:11 Labs: Abnormal Lab Results - Last 24 Hours (Table) 05/22/21 05/23/21 05/23/21 Range/Units 19:48 16:54 17:36 RBC (3.80-5.40) m/uL Hgb (11.4-16.0) gm/dL Hct (34.0-46.0) % MCH (25.0-35.0) pg MCHC (31.0-37.0) g/dL RDW (11.5-15.5) % Potassium (3.5-5.1) mmol/L Chloride (98-107) mmol/L Carbon Dioxide (22-30) mmol/L Glucose (74-99) mg/dL POC Glucose (mg/dL) 171 H 107 H (75-99) mg/dL Calcium (8.4-10.2) mg/dL Total Protein (6.3-8.2) g/dL Albumin (3.5-5.0) g/dL Urine Protein 2+ H (Negative) Urine Ketones Trace H (Negative) Ur Squamous Epith Cells 8 H (0-4) /hpf Hyaline Casts 4 H (0-2) /lpf Urine Mucus Rare H (None) /hpf 05/23/21 05/24/21 05/24/21 Range/Units 20:01 06:07 08:34 RBC (3.80-5.40) m/uL Hgb (11.4-16.0) gm/dL Hct (34.0-46.0) % MCH (25.0-35.0) pg MCHC (31.0-37.0) g/dL RDW (11.5-15.5) % Potassium (3.5-5.1) mmol/L Chloride (98-107) mmol/L Carbon Dioxide (22-30) mmol/L Glucose (74-99) mg/dL POC Glucose (mg/dL) 118 H 113 H 115 H (75-99) mg/dL Calcium (8.4-10.2) mg/dL Total Protein (6.3-8.2) g/dL Albumin (3.5-5.0) g/dL Urine Protein (Negative) Urine Ketones (Negative) Ur Squamous Epith Cells (0-4) /hpf Hyaline Casts (0-2) /lpf Urine Mucus (None) /hpf 05/24/21 05/24/21 Range/Units 09:11 09:11 RBC 3.34 L (3.80-5.40) m/uL Hgb 8.3 L (11.4-16.0) gm/dL Hct 26.8 L (34.0-46.0) % MCH 24.8 L (25.0-35.0) pg MCHC 30.9 L (31.0-37.0) g/dL RDW 16.6 H (11.5-15.5) % Potassium 3.4 L (3.5-5.1) mmol/L Chloride 110 H (98-107) mmol/L Carbon Dioxide 18 L (22-30) mmol/L Glucose 101 H (74-99) mg/dL POC Glucose (mg/dL) (75-99) mg/dL Calcium 8.1 L (8.4-10.2) mg/dL Total Protein 5.1 L (6.3-8.2) g/dL Albumin 2.7 L (3.5-5.0) g/dL Urine Protein (Negative) Urine Ketones (Negative) Ur Squamous Epith Cells (0-4) /hpf Hyaline Casts (0-2) /lpf Urine Mucus (None) /hpf
[2021-05-24 11:38] LABS: INR 1.2 (<1.2); Partial Thromboplastin Time 26.5 sec (22.0-30.0); Prothrombin Time 12.7 sec (9.0-12.0)
[2021-05-24 11:40] LABS: Glucose,Whole Blood 104 mg/dL (75-99)
--- NOTE | 2021-05-24 11:46 | P.PN ---
Subjective Progress Note Date: 05/24/21 Patient was seen by Dr. Tiffani Stack over the weekend. Please refer to her notes for details. I saw the patient this morning for the first time. Patient came to the hospital on 05/18/2021 on Monday for recurrent near syncopal spells. Patient was found to have irregular heart rhythm, with bradycardia. Cardiology saw the patient and recommended placement of pacemaker, which was done on 05/21/2021. Patient's Xarelto was on hold prior to the procedure, in preparation for the pacemaker. Apparently on Monday night, at 11 PM, patient has a stroke code activated, because she developed sudden onset of numbness of her right side of the lip and hand. She also reported difficulty with word finding. A code stroke was called and the patient was taken for a stat CT scan of the brain. Imaging was negative for acute ischemia and hemorrhage. Patient was seen by Dr. Stack on 05/22/2021, who recommended to resume anticoagulation when OK with cardiology. MRI of the brain was recommended but patient cannot have it because of pacemaker. Subsequently on Monday, yesterday, patient was noted to be confused. Patient also reportedly unable to stand. UTI was considered as well. Patient was resumed on Xarelto and given a dose last night, on Monday at 3:10 PM. This morning patient was noted to have symptoms of left-sided deficits and feeling like sand in her left eye. Examination has revealed left hemiplegia. Patient's NIH stroke scale was reported as 12. Stroke code was again activated. Patient was evaluated by stroke neurologist Dr. Mcguire, , computed tomography scan of head and CTA of head and neck were recommended. CT head showed acute infarct posterior left parietal lobe extending into the inferior left occipital lobe. The degree of hypodensity suggests greater than 6 hours in duration. No midline shift or hemorrhagic transformation. This probably subacute. No acute stroke seen in the right hemispheric region. CTA of head revealed severe stenosis/subtotal occlusion posterior P2 segment left OPERATIONS AND MAINTENANCE SPECIALIST corresponds to vascular territory for the patient's acute left-sided infarct. CTA of the neck showed: The precarinal lymph node in the mediastinum is increase in size at 1.7 cm versus 1.2 cm on 01/15/2021. This may be reactive given the small right effusion and septal lines in the upper lungs. Correlate for mild CHF. Appropriate oncologic follow-up is indicated. Atherosclerotic change at both bifurcations resulting in a moderate, approximately 60% proximal left ICA stenosis and mild 40% proximal right ICA stenosis. Incidental dominant left vertebral artery. Objective - Vital Signs Vital signs: Vital Signs Temp 98.1 F 05/24/21 08:25 Pulse 63 05/24/21 08:25 Resp 16 05/24/21 08:25 BP 134/64 05/24/21 08:25 Pulse Ox 97 05/24/21 08:25 Intake & Output 05/23/21 05/24/21 05/24/21 18:59 06:59 18:59 Intake Total 118 120 Output Total 100 300 Balance 18 -180 Intake: Oral 118 120 Output: Urine 100 300 Straight 100 Other: Voiding Method Toilet Toilet # Voids 1 - Exam On examination patient is alert and awake. She has moderate aphasia. Her NIH stroke scale is 14. 0, 1, 0, 0, 2, 1, 3, 0, 4, 0, 0, 1, 1, 0, 1. Patient is alert and awake, but has slow mentation. Her speech is clear with no dysarthria. She has significant problem with naming, could not tell me her age, or what month is it. The patient's rjqyurob-eg-mwc states that she is otherwise fully oriented at baseline. She is usually well aware of her health status and surroundings. She lives by herself. Patient knows her date of is 0 but could not tell her age. She knows name of her mfxspsns-rh-mgi. Patient could not name "knuckles", only able to see fingers. She can repeat without problem. Patient is an avid reader, but not able to read sentences presented. On cranial nerve examination pupils are round and reacting, visual callejas reveals right morning was hemianopia. Questionable deficits in the left lower visual field also. Patient has inconsistent response on the left. Patient will not keep gaze in the Center and would immediately look to (moves gaze) to the r ight hand on any movement. Patient has mild left facial asymmetry. Tongue protrudes the midline. Palatal elevation is normal. Hearing is slightly decreased, shoulder shrug normal. On muscle strength testing patient is almost flaccid in the left upper and left lower extremity. She cannot move her left upper limb proximally. She can wiggle her hand and fingers. She cannot move her left lower extremity at all. Sensory is slightly decreased on the left side. Also neglects the left side. No ataxia for [id number]-[id number] on the right, cannot check on the left. Gait cannot be checked. Reflexes are 1+, and plantar is downgoing on the right, up on the left. - Labs CBC & Chem 7: 05/24/21 09:11 05/25/21 08:46 Labs: Abnormal Lab Results - Last 24 Hours (Table) 05/22/21 05/23/21 05/23/21 Range/Units 19:48 11:22 16:54 RBC (3.80-5.40) m/uL Hgb (11.4-16.0) gm/dL Hct (34.0-46.0) % MCH (25.0-35.0) pg MCHC (31.0-37.0) g/dL RDW (11.5-15.5) % Potassium (3.5-5.1) mmol/L Chloride (98-107) mmol/L Carbon Dioxide (22-30) mmol/L Glucose (74-99) mg/dL POC Glucose (mg/dL) 171 H 113 H 107 H (75-99) mg/dL Calcium (8.4-10.2) mg/dL Total Protein (6.3-8.2) g/dL Albumin (3.5-5.0) g/dL Urine Protein (Negative) Urine Ketones (Negative) Ur Squamous Epith Cells (0-4) /hpf Hyaline Casts (0-2) /lpf Urine Mucus (None) /hpf 05/23/21 05/23/21 05/24/21 Range/Units 17:36 20:01 06:07 RBC (3.80-5.40) m/uL Hgb (11.4-16.0) gm/dL Hct (34.0-46.0) % MCH (25.0-35.0) pg MCHC (31.0-37.0) g/dL RDW (11.5-15.5) % Potassium (3.5-5.1) mmol/L Chloride (98-107) mmol/L Carbon Dioxide (22-30) mmol/L Glucose (74-99) mg/dL POC Glucose (mg/dL) 118 H 113 H (75-99) mg/dL Calcium (8.4-10.2) mg/dL Total Protein (6.3-8.2) g/dL Albumin (3.5-5.0) g/dL Urine Protein 2+ H (Negative) Urine Ketones Trace H (Negative) Ur Squamous Epith Cells 8 H (0-4) /hpf Hyaline Casts 4 H (0-2) /lpf Urine Mucus Rare H (None) /hpf 05/24/21 05/24/21 05/24/21 Range/Units 08:34 09:11 09:11 RBC 3.34 L (3.80-5.40) m/uL Hgb 8.3 L (11.4-16.0) gm/dL Hct 26.8 L (34.0-46.0) % MCH 24.8 L (25.0-35.0) pg MCHC 30.9 L (31.0-37.0) g/dL RDW 16.6 H (11.5-15.5) % Potassium 3.4 L (3.5-5.1) mmol/L Chloride 110 H (98-107) mmol/L Carbon Dioxide 18 L (22-30) mmol/L Glucose 101 H (74-99) mg/dL POC Glucose (mg/dL) 115 H (75-99) mg/dL Calcium 8.1 L (8.4-10.2) mg/dL Total Protein 5.1 L (6.3-8.2) g/dL Albumin 2.7 L (3.5-5.0) g/dL Urine Protein (Negative) Urine Ketones (Negative) Ur Squamous Epith Cells (0-4) /hpf Hyaline Casts (0-2) /lpf Urine Mucus (None) /hpf Assessment and Plan Assessment: * Acute recurrent embolic strokes, 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 Patient had an subacute CVA involving the left parietal lobe extending into the inferior left occipital lobe noticed on current computed tomography scan, which is likely from the stroke 2 days ago. This probably has presented with a right homonymous hemianopia, mild aphasia and alexia. Patient now has an acute left hemiplegia which is likely acute. Patient not a candidate for TPA, as computed tomography scan was abnormal, last known well > 4.5 hours and patient on anticoagulation with Xarelto. Patient was evaluated by neuro intervention, and was considered not a candidate for mechanical thrombectomy. Patient's NIH stroke scale at this point is 14. * Paroxysmal Atrial fibrillation on long-term anticoagulation. * Bilateral ICA stenosis 60% left ICA and 40% right ICA. * Severe stenosis/subtotal occlusion posterior P2 segment left OPERATIONS AND MAINTENANCE SPECIALIST, likely embolic. * Status post pacemaker placement 05/21/2021 * Hypertension * Hyperlipidemia * Diabetes * Positive family history of strokes in her mother. Plan: * Patient has recurrent embolic strokes, 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 Xarelto has been resumed last night. At this time I will hold off on Xarelto, and consider anticoagulation with heparin to prevent recurrent ischemic strokes. I spoke to patient's son and [id number], and clearly explained them about high risk of recurrent ischemic strokes, if anticoagulation is put on hold, and also carries high risk of hemorrhagic conversion if anticoagulation is started. Given the risks and benefits, the benefits slightly outweighs the risks at this time. We will place her on heparin without bolus. Keep her on heparin for 24-48 hours then switch to oral anticoagulation if remains stable. Repeat computed tomography scan of head in the morning. Also discussed with primary physician, and is in agreement with the above plan. Patient will also be started on aspirin 81 mg given bilateral ICA stenosis. Patient's home medications list states that she was on aspirin at home although patient declines, although may be slight confusion due to her aphasia and recent strokes. * Hemoglobin A1c 6.3 on 10/21/2020. * Lipid panel * Cardiology also on board. * CTA of the neck showed enlarged precarinal lymph node. Will defer IM to address this issue. Addendum: Patient reexamined at around 12 PM. Complaining of headache which she rated "medium intensity". Patient was reexamined and examination appeared stable, in fact, slightly better with sensory deficits much improved. Patient continues to be left hemiplegic, and visual field deficits. Spoke to cardiology Dr. Muniz. Because of multiple strokes, and risks of hemorrhagic conversion, heparin appeared to be high risk at this time. Patient already has received 1 dose of Xarelto yesterday at 3:10 PM therefore patient is still anticoagulated. We will pace patient on aspirin 81 mg and Plavix. Hold heparin for now. Patient has not received any heparin IV at this point. Repeat computed tomography scan of head in the morning to follow-up on the CVA, rule out hemorrhagic conversion. Also patient to undergo SANGEETHA in the morning to evaluate for any intra-atrial or intraventricular thrombus. If no thrombus, then would recommend holding anticoagulation for 5-7 days. Discussed again with primary physician, and agreed. Also spoke to Dr. Carias in detail. Time with Patient: Greater than 30
[2021-05-24] MEDS: ASPIRIN 81 MG PO SCH (12:15)
[2021-05-24] MEDS: ACETAMINOPHEN TAB 325 MG TAB PO PRN (12:16)
[2021-05-24] MEDS: CHOLECALCIFEROL 25 MCG (1000 IU) TABLET PO SCH (12:17)
[2021-05-24] MEDS: lisinopriL 20 MG TAB PO SCH ×2 (12:17→21:16)
[2021-05-24] MEDS: MAGNESIUM OXIDE 400 MG TAB PO SCH (12:17)
[2021-05-24] MEDS: SODIUM CHLORIDE 0.9% 1,000 ML IV SCH (12:18)
[2021-05-24] MEDS: CLOPIDOGREL 75 MG TAB PO SCH (14:21)
--- NOTE | 2021-05-24 16:29 | P.PN ---
Subjective Progress Note Date: 05/24/21 Patient was seen and evaluated today. This morning she was having worsening left-sided hemiplegia and was unable to stand up. Code stroke was activated again. NIH score was 12. Repeat imaging of the brain showed evidence of acute stroke. She was seen and evaluated by neurology. Objective - Vital Signs Vital signs: Vital Signs Temp 98.1 F 05/24/21 08:25 Pulse 74 05/24/21 14:32 Resp 16 05/24/21 14:32 BP 157/73 05/24/21 11:35 Pulse Ox 99 05/24/21 11:35 Intake & Output 05/23/21 05/24/21 05/24/21 18:59 06:59 18:59 Intake Total 118 360 Output Total 100 301 Balance 18 59 Weight 63 kg Intake: Oral 118 360 Output: Urine 100 300 Straight 100 Urine/Stool Mix 1 Other: Voiding Method Toilet Toilet Bedpan # Voids 1 1 - Exam General: The patient is awake and alert, in no distress Eye: there is normal conjunctiva bilaterally. Neck: The neck is supple, there is no JVD. Cardiovascular: Irregularly irregular. Normal S1-S2, no S3-S4, no murmurs. Respiratory: Lungs clear to auscultation bilaterally Gastrointestinal: Abdomen is soft, nontender Musculoskeletal: There is no pedal edema. Neurological:. Speech is normal. Skin: Skin is warm and dry - Labs CBC & Chem 7: 05/24/21 09:11 05/24/21 09:11 Labs: Abnormal Lab Results - Last 24 Hours (Table) 05/23/21 05/23/21 05/23/21 Range/Units 16:54 17:36 20:01 RBC (3.80-5.40) m/uL Hgb (11.4-16.0) gm/dL Hct (34.0-46.0) % MCH (25.0-35.0) pg MCHC (31.0-37.0) g/dL RDW (11.5-15.5) % PT (9.0-12.0) sec INR (<1.2) Potassium (3.5-5.1) mmol/L Chloride (98-107) mmol/L Carbon Dioxide (22-30) mmol/L Glucose (74-99) mg/dL POC Glucose (mg/dL) 107 H 118 H (75-99) mg/dL Calcium (8.4-10.2) mg/dL Total Protein (6.3-8.2) g/dL Albumin (3.5-5.0) g/dL Urine Protein 2+ H (Negative) Urine Ketones Trace H (Negative) Ur Squamous Epith Cells 8 H (0-4) /hpf Hyaline Casts 4 H (0-2) /lpf Urine Mucus Rare H (None) /hpf 05/24/21 05/24/21 05/24/21 Range/Units 06:07 08:34 09:11 RBC 3.34 L (3.80-5.40) m/uL Hgb 8.3 L (11.4-16.0) gm/dL Hct 26.8 L (34.0-46.0) % MCH 24.8 L (25.0-35.0) pg MCHC 30.9 L (31.0-37.0) g/dL RDW 16.6 H (11.5-15.5) % PT (9.0-12.0) sec INR (<1.2) Potassium (3.5-5.1) mmol/L Chloride (98-107) mmol/L Carbon Dioxide (22-30) mmol/L Glucose (74-99) mg/dL POC Glucose (mg/dL) 113 H 115 H (75-99) mg/dL Calcium (8.4-10.2) mg/dL Total Protein (6.3-8.2) g/dL Albumin (3.5-5.0) g/dL Urine Protein (Negative) Urine Ketones (Negative) Ur Squamous Epith Cells (0-4) /hpf Hyaline Casts (0-2) /lpf Urine Mucus (None) /hpf 05/24/21 05/24/21 05/24/21 Range/Units 09:11 11:18 11:38 RBC (3.80-5.40) m/uL Hgb (11.4-16.0) gm/dL Hct (34.0-46.0) % MCH (25.0-35.0) pg MCHC (31.0-37.0) g/dL RDW (11.5-15.5) % PT 12.7 H (9.0-12.0) sec INR 1.2 H (<1.2) Potassium 3.4 L (3.5-5.1) mmol/L Chloride 110 H (98-107) mmol/L Carbon Dioxide 18 L (22-30) mmol/L Glucose 101 H (74-99) mg/dL POC Glucose (mg/dL) 104 H (75-99) mg/dL Calcium 8.1 L (8.4-10.2) mg/dL Total Protein 5.1 L (6.3-8.2) g/dL Albumin 2.7 L (3.5-5.0) g/dL Urine Protein (Negative) Urine Ketones (Negative) Ur Squamous Epith Cells (0-4) /hpf Hyaline Casts (0-2) /lpf Urine Mucus (None) /hpf Assessment and Plan Assessment: This is a 80-year-old female who presented to the emergency room with presy ncopal episode. Patient was evaluated and admitted to the hospital for further management of her medical problems noted below. On Monday 05/21, patient was complaining of right hand numbness and a code stroke was called with neurology consultation. At that time, computed tomography scan of the brain showed no acute findings. This was thought to be less likely a stroke and patient anticoagulation with Rivaroxaban and was resumed. On 05/24, patient was complaining of worsening left-sided any plegia and a second code stroke was called on her with repeat imaging showing acute stroke. Patient was seen and evaluated by neurology. 1. Symptomatic bradycardia, status post pacemaker implantation. Home dose of metoprolol was discontinued. Thyroid function tests within normal range. 2. Subacute stroke involving the left parietal lobe, possibly embolic. Patient was seen and evaluated by neurology. Anticoagulation on hold right now awaiting repeat imaging. Continue aspirin and Plavix as recommended by neurology. Plan for SANGEETHA tomorrow. Echo with bubble study pending report 3. Chronic atrial fibrillation on anticoagulation with Rivaroxaban, currently on hold. We will resume when cleared by neurology 4. Type 2 diabetes: Hold home dose of metformin and continue sliding scale insulin 5. Essential hypertension, blood pressure not well controlled. Home dose of hydralazine increased to 100 mg 3 times a day 6. Hypomagnesemia, replaced. 7. CODE STATUS: Patient is full code 8. Hospital-acquired delirium, patient was some confusion on and off. Computed tomography scan of the head showed no acute findings. Less likely a stroke. She was seen and evaluated by neurology. Unable to obtain an MRI as patient has a pacemaker. Awaiting urinalysis to rule out underlying UTI. Lipid panel in the morning. PT/OT evaluation. Repeat lab work in the morning. Anticipate discharge scale facility for subacute rehab when medically clear
[2021-05-24 16:51] LABS: Glucose,Whole Blood 104 mg/dL (75-99)
--- NOTE | 2021-05-24 17:08 | CT ---
EXAMINATION TYPE: CT brain wo con DATE OF EXAM: 05/24/2021 COMPARISON: 05/24/2021 earlier today HISTORY: 80-year-old female Follow up CVA. TECHNIQUE: Examination was done in axial plane without intravenous contrast. Coronal and sagittal r econstructions performed. CT DLP: 1100.4 mGycm Automated exposure control for dose reduction was used. FINDINGS: Redemonstrated cortical and subcortical hypodensity posterior left parietal lobe extending into the i nferior left occipital lobe. Confluent white matter hypodensities both cerebral hemispheres.No eviden ce for acute intracranial hemorrhage. No hydrocephalus. No midline shift. No extra-axial fluid collec tion or herniation. IMPRESSION: Stable acute infarct posterior left parietal lobe extending into the inferior left occipital lobe. No hemorrhagic transformation or midline shift.
[2021-05-24 20:45] LABS: Glucose,Whole Blood 156 mg/dL (75-99)
[2021-05-24] MEDS: ATORVASTATIN 40 MG TAB PO SCH (21:16)
[2021-05-24] MEDS: MELATONIN 5 MG TABLET PO SCH (21:16)
[2021-05-24 22:47] LABS: Hemoglobin A1C 6.1 % (4.0-6.0)
[2021-05-25 06:25] LABS: Glucose,Whole Blood 122 mg/dL (75-99)
[2021-05-25] MEDS: INSULIN ASPART (NovoLOG) 100 UNIT/ML VIAL SQ SCH ×4 (06:28→20:37)
[2021-05-25] MEDS: hydrALAZINE HCL 50 MG TAB PO SCH ×3 (06:35→17:39)
[2021-05-25] MEDS: PANTOPRAZOLE 40 MG TABLET PO SCH (06:35)
[2021-05-25] MEDS: SODIUM CHLORIDE 0.9% 1,000 ML IV SCH (06:35)
[2021-05-25 09:36] LABS: INR 1.1 (<1.2); Prothrombin Time 11.4 sec (9.0-12.0)
[2021-05-25 09:56] LABS: African American GFR (CKD) >90 (>60 ml/min/1.73 sqM); Anion Gap 7 mmol/L; Blood Urea Nitrogen 11 mg/dL (7-17); Calcium 8.8 mg/dL (8.4-10.2); Carbon Dioxide 20 mmol/L (22-30); Chloride 110 mmol/L (98-107); Glucose 110 mg/dL (74-99); Magnesium 1.7 mg/dL (1.6-2.3); Non-African American GFR(CKD) 88 (>60 ml/min/1.73 sqM); Sodium 137 mmol/L (137-145)
[2021-05-25] MEDS: MAGNESIUM OXIDE 400 MG TAB PO SCH (09:59)
[2021-05-25] MEDS: ASPIRIN 81 MG PO SCH (09:59)
[2021-05-25] MEDS: lisinopriL 20 MG TAB PO SCH ×2 (09:59→20:44)
[2021-05-25] MEDS: CLOPIDOGREL 75 MG TAB PO SCH (09:59)
[2021-05-25] MEDS: CHOLECALCIFEROL 25 MCG (1000 IU) TABLET PO SCH (09:59)
--- NOTE | 2021-05-25 10:33 | ECHOF ---
Referral Reason:r/o shunt, stroke MEASUREMENTS -------- HEIGHT: 154.9 cm WEIGHT: 62.6 kg BP: FINDINGS -------- Contrast study was performed with 2 iv injections of 8 ccs of agitated normal saline, at rest, and wi th cough. Interatrial and interventricular septum intact. CONCLUSIONS -------- 1. Contrast study was performed with 2 iv injections of 8 ccs of agitated normal saline, at rest, and with cough. 2. Interatrial and interventricular septum intact. FRONT SIGHT ATTACHER: Doris Newell RDCS
--- NOTE | 2021-05-25 11:07 | P.PN ---
Subjective Progress Note Date: 05/25/21 Patient is feeling fairly well today. She is complaining of some numbness involving the right side of her upper lip. No other complaints this morning. Objective - Vital Signs Vital signs: Vital Signs Temp 98 F 05/25/21 08:46 Pulse 71 05/25/21 08:46 Resp 18 05/25/21 08:46 BP 149/55 05/25/21 08:46 Pulse Ox 99 05/25/21 08:46 Intake & Output 05/24/21 05/25/21 05/25/21 18:59 06:59 18:59 Intake Total 600 Output Total 301 Balance 299 Weight 63 kg 63 kg Intake: Oral 600 Output: Urine 300 Urine/Stool Mix 1 Other: Voiding Method Bedpan Diaper Diaper # Voids 1 - Exam General: The patient is awake and alert, in no distress Eye: there is normal conjunctiva bilaterally. Neck: The neck is supple, there is no JVD. Cardiovascular: Irregularly irregular. Normal S1-S2, no S3-S4, no murmurs. Respiratory: Lungs clear to auscultation bilaterally Gastrointestinal: Abdomen is soft, nontender Musculoskeletal: There is no pedal edema. Neurological:. Speech is normal. Skin: Skin is warm and dry - Labs CBC & Chem 7: 05/24/21 09:11 05/25/21 08:46 Labs: Abnormal Lab Results - Last 24 Hours (Table) 05/24/21 05/24/21 05/24/21 Range/Units 09:11 11:18 11:38 PT 12.7 H (9.0-12.0) sec INR 1.2 H (<1.2) Chloride (98-107) mmol/L Carbon Dioxide (22-30) mmol/L Glucose (74-99) mg/dL POC Glucose (mg/dL) 104 H (75-99) mg/dL Hemoglobin A1c 6.1 H (4.0-6.0) % 05/24/21 05/24/21 05/25/21 Range/Units 16:47 20:43 06:24 PT (9.0-12.0) sec INR (<1.2) Chloride (98-107) mmol/L Carbon Dioxide (22-30) mmol/L Glucose (74-99) mg/dL POC Glucose (mg/dL) 104 H 156 H 122 H (75-99) mg/dL Hemoglobin A1c (4.0-6.0) % 05/25/21 Range/Units 08:46 PT (9.0-12.0) sec INR (<1.2) Chloride 110 H (98-107) mmol/L Carbon Dioxide 20 L (22-30) mmol/L Glucose 110 H (74-99) mg/dL POC Glucose (mg/dL) (75-99) mg/dL Hemoglobin A1c (4.0-6.0) % Assessment and Plan Assessment: This is a 80-year-old female who presented to the emergency room with presyncopal episode. Patient was evaluated and admitted to the hospital for further management of her medical problems noted below. On Monday 05/21, patient was complaining of right hand numbness and a code stroke was called with neurology consultation. At that time, computed tomography scan of the brain showed no acute findings. This was thought to be less likely a stroke and patient anticoagulation with Rivaroxaban and was resumed. On 05/24, patient was complaining of worsening left-sided any plegia and a second code stroke was called on her with repeat imaging showing acute stroke. Patient was seen and evaluated by neurology. 1. Symptomatic bradycardia, status post pacemaker implantation. Home dose of metoprolol was discontinued. Thyroid function tests within normal range. 2. Subacute stroke involving the left parietal lobe, possibly embolic. Patient was seen and evaluated by neurology. Anticoagulation on hold right now awaiting repeat imaging. Continue aspirin and Plavix as recommended by neurology. Plan for SANGEETHA today. Echo with bubble study showed no evidence of shunt or PFO 3. Chronic atrial fibrillation on anticoagulation with Rivaroxaban, currently on hold. We will resume when cleared by neurology 4. Type 2 diabetes: Hold home dose of metformin and continue sliding scale insulin 5. Essential hypertension, blood pressure not well controlled. Home dose of hydralazine increased to 100 mg 3 times a day 6. Hypokalemia and Hypomagnesemia, replaced. 7. CODE STATUS: Patient is full code Lipid panel pending. PT/OT evaluation. Repeat lab work in the morning. Anticipate discharge to subacute rehab facility when medically clear
[2021-05-25 11:45] LABS: Glucose,Whole Blood 108 mg/dL (75-99)
--- NOTE | 2021-05-25 12:37 | P.PN ---
Subjective Progress Note Date: 05/25/21 HISTORY OF PRESENT ILLNESS: This is a 80-year-old female with a past medical history significant for paroxysmal atrial fibrillation, CVA, diabetes mellitus, GERD, hypertension, hyperlipidemia, diverticulosis with recent small bowel resection in February 2021, and coronary artery disease. Patient follows in the office with Dr. Carias. We have been asked to see the patient in consultation for presyncope. Patient examined at the bedside in the emergency room. Patient states yesterday around 10am she began to feel lightheaded and as if she was going to pass out. She denied having any syncopal episodes though. She denies chest pain or pressure. Denies shortness of breath. Denies nausea or vomiting. Denies cough or congestion. Patient is currently in atrial fibrillation with a heart rate ranging from 20-50 during examination. She is on metoprolol 50mg BID at home which is currently on hold. EKG reveals atrial fibrillation with slow ventricular rate Chest xray mild cardiomegaly. There may be underlying pulmonary arterial hypertension. Old calcified granuloma at the right base. Interstitial prominence could reflect mild pulmonary vascular congestion, bronchitis, or c hronic asthma. Laboratory data: WBC 10.1. Hemoglobin 9.4. Platelet count 354. Sodium 137. Potassium 4.2. BUN 15. Creatinine 0.66. Current home cardiac medications include hydralazine 50 mg 3 times a day, Xarelto 20 mg daily, metoprolol tartrate 51 g twice a day, Lipitor 40mg daily, aspirin 81 g daily, lisinopril 20 mg daily Most recent echocardiogram obtained in 2019 revealed mild aortic valve sclerosis, mild aortic regurgitation, mild mitral regurgitation, mild mitral stenosis, mild tricuspid regurgitation, and mild pulmonary hypertension Patient underwent a premium stress echo in May 2020 revealing evidence of prior inferior wall myocardial infarction with preserved LV function without any stress-induced ischemia Patient underwent cardiac catheterization in 2014 revealing heavily calcified coronary system without any critical stenosis 05/22/2021 Patient examined this morning at the bedside. Patient is status post permanent pacemaker insertion. Patient developed some tingling in her right hand and face yesterday. A code stroke was called. Patient underwent CT of the brain which was negative for an acute process. Her Xarelto remains on hold. Chest x-ray postprocedure does not reveal evidence of pneumothorax 05/23/2021 Patient examined this morning at the bedside. Patient is confused at the time of examination. Patient's pacemaker was interrogated yesterday and report was reviewed. Neurology evaluated the patient yesterday and cleared the patient to resume anticoagulation. 05/24/2021 Code stroke was called on the patient this morning as she was unable to move her left side. Patient underwent CT of the brain revealing acute infarct posterior left parietal lobe extending into the inferior left occipital lobe. The degree of hypodensity suggests greater than 6 hours in duration. No midline shift or hemorrhagic transformation. CTA head and neck reveals 60% proximal left ICA stenosis and mild 40% proximal right ICA stenosis. Severe stenosis/subtotal occlusion posterior P2 segment left DIRECTOR [employer]SLATIONAL corresponds to the vascular territory for the patient's acute left-sided infarct. Telemetry reveals paced rhythm with underlying atrial fibrillation. Vital signs stable. Blood pressure 134/64. 05/25/2021 Patient examined this morning at the bedside. Patient denies chest pain or pressure. She denies shortness of breath. Patient is still unable to move her left lower extremity. She remains on aspirin and Plavix. Intake regular she re fausto on hold. PHYSICAL EXAM: VITAL SIGNS: Reviewed. GENERAL: Well-developed in no acute distress. HEENT: Head is normocephalic. Pupils are equal, round. Sclerae anicteric. Mucous membranes of the mouth are moist. Neck supple. No JVD or thyromegaly. + bruit. LUNGS: Respirations even and unlabored. Lungs essentially clear to auscultation bilaterally. HEART: Irregular rate and rhythm. S1 and S2 heard. Systolic murmur noted ABDOMEN: Soft. Nondistended. Nontender. EXTREMITIES: Normal range of motion. No clubbing or cyanosis. Peripheral pulses intact. No lower extremity edema ASSESSMENT: Pre-Syncope Symptomatic bradycardia, status post pacemaker insertion Paroxysmal atrial fibrillation, on anticoagulation with Xarelto Acute CVA with left sided weakness Hypertension Hyperlipidemia History of CVA Diabetes mellitus GERD History of diverticulosis with recent small bowel resection, February 2021 Valvular heart disease PLAN: Continue telemetry monitoring Continue current cardiac medications Case discussed with neurology. No plans for SANGEETHA at this time. Patient will undergo repeat CT of the brain this afternoon per neurology and if CT is stable will likely resume anticoagulation today. From a cardiac perspective would like to resume anticoagulation as soon as possible. Will resume Xarelto when cleared by neurology Further recommendations pending patient's course Nurse practitioner note has been reviewed by physician. Signing provider agrees with the documented findings, assessment, and plan of care. Objective - Vital Signs Vital signs: Vital Signs Temp 98.2 F 05/25/21 11:46 Pulse 68 05/25/21 11:46 Resp 16 05/25/21 11:46 BP 183/51 05/25/21 11:46 Pulse Ox 98 05/25/21 11:46 Intake & Output 05/24/21 05/25/21 05/25/21 18:59 06:59 18:59 Intake Total 600 Output Total 301 Balance 299 Weight 63 kg 63 kg Intake: Oral 600 Output: Urine 300 Urine/Stool Mix 1 Other: Voiding Method Bedpan Diaper Diaper # Voids 1 1 - Labs CBC & Chem 7: 05/24/21 09:11 05/25/21 08:46 Labs: Abnormal Lab Results - Last 24 Hours (Table) 05/24/21 05/24/21 05/24/21 Range/Units 09:11 16:47 20:43 Chloride (98-107) mmol/L Carbon Dioxide (22-30) mmol/L Glucose (74-99) mg/dL POC Glucose (mg/dL) 104 H 156 H (75-99) mg/dL Hemoglobin A1c 6.1 H (4.0-6.0) % 05/25/21 05/25/21 05/25/21 Range/Units 06:24 08:46 11:44 Chloride 110 H (98-107) mmol/L Carbon Dioxide 20 L (22-30) mmol/L Glucose 110 H (74-99) mg/dL POC Glucose (mg/dL) 122 H 108 H (75-99) mg/dL Hemoglobin A1c (4.0-6.0) %
[2021-05-25 14:11] VITALS: BMI 26.2
[2021-05-25] MEDS: ACETAMINOPHEN TAB 325 MG TAB PO PRN (14:56)
--- NOTE | 2021-05-25 15:37 | CT ---
EXAMINATION TYPE: CT brain wo con DATE OF EXAM: 05/25/2021 COMPARISON: 05/24/2021 INDICATION: Follow up CVA. DLP: 1099.4 mGycm, Automated exposure control for dose reduction was used. CONTRAST: None CT of the brain is performed utilizing 3 mm thick sections through the posterior fossa and 3 mm thick sections through the remaining calvarium. Study is performed within 24 hours of arrival to the hosp [facility]. No abnormal hyperdensity is present to suggest an acute intracranial hemorrhage. No mass lesion is evident. There is an inferior left occipital lobe infarct stable in appearance from comparison. Quadrigeminal plate and ambient cisterns remain patent. There is some hypodensity in the periventricular white sinan er. This more focal in the right frontal lobe. Findings were present previously and are likely chroni c white matter ischemic-type changes. Ventricles and sulci are appropriate for the patient age. Paranasal sinuses and mastoid air cells within the [id number] are clear. IMPRESSIONS: 1. Subacute inferior left occipital lobe infarct, stable from comparison. 2. Chronic appearing periventricular white matter ischemic-type changes.
[2021-05-25 16:30] LABS: Glucose,Whole Blood 146 mg/dL (75-99)
[2021-05-25] MEDS: RIVAROXABAN 20 MG TAB PO SCH (17:39)
[2021-05-25 20:31] LABS: Glucose,Whole Blood 118 mg/dL (75-99)
[2021-05-25 20:40] LABS: Appearance,Urine Turbid (Clear); Bacteria,Urine Many /hpf; Bilirubin,Urine Negative (Negative); Blood,Urine Negative (Negative); Color,Urine Yellow; Glucose,Urine (UA) Negative (Negative); Ketones,Urine Trace (Negative); Leukocyte Esterase,Urine Large (Negative); Mucus,Urine Rare /hpf; Nitrite,Urine Negative (Negative); Protein,Urine 2+ (Negative); RBC,Urine 7 /hpf (0-5); Specific Gravity,Urine 1.022 (1.001-1.035); Squamous Epithelial Cell,Urine 5 /hpf (0-4); Urobilinogen,Urine <2.0 mg/dL (<2.0); WBC,Urine >182 /hpf (0-5)
[2021-05-25] MEDS: ATORVASTATIN 40 MG TAB PO SCH (20:44)
[2021-05-25] MEDS: MELATONIN 5 MG TABLET PO SCH (20:44)
[2021-05-25 21:26] LABS: Chol/HDL Ratio 2.59; Cholesterol 83 mg/dL (0-200); LDL Cholesterol,Calculated 37.6 mg/dL (0.0-131.0)
[2021-05-26] MEDS: hydrALAZINE HCL 50 MG TAB PO SCH ×3 (04:26→16:29)
[2021-05-26 06:27] LABS: Glucose,Whole Blood 121 mg/dL (75-99)
[2021-05-26] MEDS: INSULIN ASPART (NovoLOG) 100 UNIT/ML VIAL SQ SCH ×4 (06:27→20:24)
[2021-05-26] MEDS: PANTOPRAZOLE 40 MG TABLET PO SCH (06:29)
[2021-05-26 08:20] LABS: Anisocytosis Slight; Basophils % (A) 0 %; Eosinophils # (A) 0.3 k/uL (0-0.7); Eosinophils % (A) 3 %; HCT 29.9 % (34.0-46.0); HGB 9.2 gm/dL (11.4-16.0); Hypochromasia Marked; Lymphocytes # (A) 1.6 k/uL (1.0-4.8); Lymphocytes % (A) 15 %; MCH 24.8 pg (25.0-35.0); MCHC 30.8 g/dL (31.0-37.0); MCV 80.6 fL (80.0-100.0); Mean Platelet Volume 7.4; Monocytes # (A) 0.8 k/uL (0-1.0); Monocytes % (A) 8 %; Neutrophils # (A) 7.2 k/uL (1.3-7.7); Neutrophils % (A) 71 %; Platelet Count 363 k/uL (150-450); RBC 3.71 m/uL (3.80-5.40); RDW 16.4 % (11.5-15.5); WBC 10.1 k/uL (3.8-10.6)
[2021-05-26 08:36] LABS: African American GFR (CKD) >90 (>60 ml/min/1.73 sqM); Anion Gap 10 mmol/L; Blood Urea Nitrogen 11 mg/dL (7-17); Calcium 8.9 mg/dL (8.4-10.2); Carbon Dioxide 18 mmol/L (22-30); Chloride 108 mmol/L (98-107); Glucose 106 mg/dL (74-99); Non-African American GFR(CKD) >90 (>60 ml/min/1.73 sqM); Sodium 136 mmol/L (137-145)
[2021-05-26] MEDS: CHOLECALCIFEROL 25 MCG (1000 IU) TABLET PO SCH (09:40)
[2021-05-26] MEDS: ASPIRIN 81 MG PO SCH (09:40)
[2021-05-26] MEDS: lisinopriL 20 MG TAB PO SCH ×2 (09:40→20:24)
[2021-05-26] MEDS: MAGNESIUM OXIDE 400 MG TAB PO SCH (09:40)
--- NOTE | 2021-05-26 10:25 | P.PN ---
Subjective Progress Note Date: 05/25/21 05/25/2021: Patient's son was present today. Patient is laying comfortably in the bed. Patient states she is feeling better. No new neurological symptoms. Denies headache. 05/24/2021: Patient was seen by Dr. Tiffani Stack over the weekend. Please refer to her notes for details. I saw the patient this morning for the first time. Patient came to the hospital on 05/18/2021 on Monday for recurrent near syncopal spells. Patient was found to have irregular heart rhythm, with bradycardia. Cardiology saw the patient and recommended placement of pacemaker, which was done on 05/21/2021. Patient's Xarelto was on hold prior to the procedure, in preparation for the pacemaker. Apparently on Monday night, at 11 PM, patient has a stroke code activated, because she developed sudden onset of numbness of her right side of the lip and hand. She also reported difficulty with word finding. A code stroke was called and the patient was taken for a stat CT scan of the brain. Imaging was negative for acute ischemia and hemorrhage. Patient was seen by Dr. Stack on 05/22/2021, who re commended to resume anticoagulation when OK with cardiology. MRI of the brain was recommended but patient cannot have it because of pacemaker. Subsequently on Monday, yesterday, patient was noted to be confused. Patient also reportedly unable to stand. UTI was considered as well. Patient was resumed on Xarelto and given a dose last night, on Monday at 3:10 PM. This morning patient was noted to have symptoms of left-sided deficits and feeling like sand in her left eye. Examination has revealed left hemiplegia. Patient's NIH stroke scale was reported as 12. Stroke code was again activated. Patient was evaluated by stroke neurologist Dr. Mcguire, , computed tomography scan of head and CTA of head and neck were recommended. CT head showed acute infarct posterior left parietal lobe extending into the inferior left occipital lobe. The degree of hypodensity suggests greater than 6 hours in duration. No midline shift or hemorrhagic transformation. This probably subacute. No acute stroke seen in the right hemispheric region. CTA of head revealed severe stenosis/subtotal occlusion posterior P2 segment left TROUBLE TRACER corresponds to vascular territory for the patient's acute left-sided infarct. CTA of the neck showed: The precarinal lymph node in the mediastinum is increase in size at 1.7 cm versus 1.2 cm on 01/15/2021. This may be reactive given the small right effusion and septal lines in the upper lungs. Correlate for mild CHF. Appropriate oncologic follow-up is indicated. Atherosclerotic change at both bifurcations resulting in a moderate, approximately 60% proximal left ICA stenosis and mild 40% proximal right ICA stenosis. Incidental dominant left vertebral artery. Objective - Vital Signs Vital signs: Vital Signs Temp 98.5 F 05/25/21 15:33 Pulse 79 05/25/21 15:33 Resp 16 05/25/21 15:33 BP 171/64 05/25/21 15:33 Pulse Ox 96 05/25/21 15:33 Intake & Output 05/24/21 05/25/21 05/25/21 18:59 06:59 18:59 Intake Total 600 Output Total 301 Balance 299 Weight 63 kg 63 kg 63 kg Intake: Oral 600 Output: Urine 300 Urine/Stool Mix 1 Other: Voiding Method Bedpan Diaper Diaper # Voids 1 1 - Exam Patient's neurological examination his most improved. Her NIH stroke scale is 7, entirely for left hemiparesis. Her NIH stroke scale today 05/26/2021. 0, 0, 0, 0, 0, 0, 3, 0, 4, 0, 0, 0, 0, 0, 0 Her NIH stroke scale on 05/25/2021. 0, 1, 0, 0, 2, 1, 3, 0, 4, 0, 0, 1, 1, 0, 1. Patient is alert and awake, but has slow mentation. Her speech is clear with no dysarthria. She can name objects much better. She could tell her age and the current month. She can repeat without problem. On cranial nerve examination pupils are round and reacting, visual callejas reveals no definitive visual field deficit, although patient could not keep her eyes from looking to the target rather than looking at the Center to check for peripheral vision. Patient will not keep gaze in the Center and would immediately look to (moves gaze) to the right hand on any movement. No facial asymmetry. Tongue protrudes the midline. Palatal elevation is normal. Hearing is slightly decreased (baseline), shoulder shrug normal. On muscle strength testing patient is almost flaccid in the left upper and left lower extremity. She cannot move her left upper limb proximally. She can wiggle her hand and fingers. When I lifted her left arm passively, she held the arm about 20 for a few seconds then brought it down. Her left leg is completely flaccid. Sensory is equal on both sides with no n eglect. No ataxia for [id number] on the right, cannot check on the left. Gait cannot be checked. Reflexes are 1+, and plantar is downgoing on the right, up on the left. - Labs CBC & Chem 7: 05/26/21 07:41 05/26/21 07:41 Labs: Abnormal Lab Results - Last 24 Hours (Table) 05/24/21 05/24/21 05/25/21 Range/Units 09:11 20:43 06:24 Chloride (98-107) mmol/L Carbon Dioxide (22-30) mmol/L Glucose (74-99) mg/dL POC Glucose (mg/dL) 156 H 122 H (75-99) mg/dL Hemoglobin A1c 6.1 H (4.0-6.0) % 05/25/21 05/25/21 05/25/21 Range/Units 08:46 11:44 16:28 Chloride 110 H (98-107) mmol/L Carbon Dioxide 20 L (22-30) mmol/L Glucose 110 H (74-99) mg/dL POC Glucose (mg/dL) 108 H 146 H (75-99) mg/dL Hemoglobin A1c (4.0-6.0) % Assessment and Plan Assessment: * Acute recurrent embolic strokes, 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 Patient had an subacute CVA involving the left parietal lobe extending into the inferior left occipital lobe noticed on current computed tomography scan, which is likely from the stroke on 05/21/2021. This probably has presented with a right homonymous hemianopia, mild aphasia and alexia, all of them seem to have improved now. Patient's acute left hemiplegia is likely due to CVA involving the right JOHNATHON territory. Patient has significantly improved, with NIH stroke scale down from 14 yesterday to 7 today. * Paroxysmal Atrial fibrillation on long-term anticoagulation. * Bilateral ICA stenosis 60% left ICA and 40% right ICA. * Severe stenosis/subtotal occlusion posterior P2 segment left TROUBLE TRACER, likely embolic. * Status post pacemaker placement 05/21/2021 * Hypertension * Hyperlipidemia * Diabetes * Positive family history of strokes in her mother. Plan: * Patient underwent repeat computed tomography scan of the head performed at 3:32 PM today. It revealed subacute inferior left occipital lobe infarct, stable from comparison. No hemorrhage. Patient has some mild encephalomalacia involving the right JOHNATHON territory, which likely is the cause of left hemiparesis. * Per cardiology, patient is very high risk for recurrent embolic strokes, therefore given the risk and benefit ratio, the benefits of anticoagulation outweigh the risks. Patient will be started again on Xarelto 20 mg daily. Patient will be continued on aspirin 81 mg. We will stop Plavix. Discussed with patient's son, who is in complete agreement. Patient currently on pantoprazole for gastric ulcer prophylaxis. * Hemoglobin A1c 6.3 on 10/21/2020. * Lipid panel with cholesterol 83, LDL 37.6, HDL 32 and triglycerides 67. Continue Lipitor 40 mg. TSH normal at 2.2. * CTA of the neck showed enlarged precarinal lymph node. Will defer IM to address this issue.
[2021-05-26 11:47] LABS: Glucose,Whole Blood 113 mg/dL (75-99)
[2021-05-26] MEDS: ACETAMINOPHEN TAB 325 MG TAB PO PRN (12:48)
--- NOTE | 2021-05-26 13:22 | P.PN ---
Subjective Progress Note Date: 05/26/21 HISTORY OF PRESENT ILLNESS: This is a 80-year-old female with a past medical history significant for paroxysmal atrial fibrillation, CVA, diabetes mellitus, GERD, hypertension, hyperlipidemia, diverticulosis with recent small bowel resection in February 2021, and coronary artery disease. Patient follows in the office with Dr. Carias. We have been asked to see the patient in consultation for presyncope. Patient examined at the bedside in the emergency room. Patient states yesterday around 10am she began to feel lightheaded and as if she was going to pass out. She denied having any syncopal episodes though. She denies chest pain or pressure. Denies shortness of breath. Denies nausea or vomiting. Denies cough or congestion. Patient is currently in atrial fibrillation with a heart rate ranging from 20-50 during examination. She is on metoprolol 50mg BID at home which is currently on hold. EKG reveals atrial fibrillation with slow ventricular rate Chest xray mild cardiomegaly. There may be underlying pulmonary arterial hypertension. Old calcified granuloma at the right base. Interstitial prominence could reflect mild pulmonary vascular congestion, bronchitis, or c hronic asthma. Laboratory data: WBC 10.1. Hemoglobin 9.4. Platelet count 354. Sodium 137. Potassium 4.2. BUN 15. Creatinine 0.66. Current home cardiac medications include hydralazine 50 mg 3 times a day, Xarelto 20 mg daily, metoprolol tartrate 51 g twice a day, Lipitor 40mg daily, aspirin 81 g daily, lisinopril 20 mg daily Most recent echocardiogram obtained in 2019 revealed mild aortic valve sclerosis, mild aortic regurgitation, mild mitral regurgitation, mild mitral stenosis, mild tricuspid regurgitation, and mild pulmonary hypertension Patient underwent a premium stress echo in May 2020 revealing evidence of prior inferior wall myocardial infarction with preserved LV function without any stress-induced ischemia Patient underwent cardiac catheterization in 2014 revealing heavily calcified coronary system without any critical stenosis 05/22/2021 Patient examined this morning at the bedside. Patient is status post permanent pacemaker insertion. Patient developed some tingling in her right hand and face yesterday. A code stroke was called. Patient underwent CT of the brain which was negative for an acute process. Her Xarelto remains on hold. Chest x-ray postprocedure does not reveal evidence of pneumothorax 05/23/2021 Patient examined this morning at the bedside. Patient is confused at the time of examination. Patient's pacemaker was interrogated yesterday and report was reviewed. Neurology evaluated the patient yesterday and cleared the patient to resume anticoagulation. 05/24/2021 Code stroke was called on the patient this morning as she was unable to move her left side. Patient underwent CT of the brain revealing acute infarct posterior left parietal lobe extending into the inferior left occipital lobe. The degree of hypodensity suggests greater than 6 hours in duration. No midline shift or hemorrhagic transformation. CTA head and neck reveals 60% proximal left ICA stenosis and mild 40% proximal right ICA stenosis. Severe stenosis/subtotal occlusion posterior P2 segment left STITCHER FEEDER corresponds to the vascular territory for the patient's acute left-sided infarct. Telemetry reveals paced rhythm with underlying atrial fibrillation. Vital signs stable. Blood pressure 134/64. 05/25/2021 Patient examined this morning at the bedside. Patient denies chest pain or pressure. She denies shortness of breath. Patient is still unable to move her left lower extremity. She remains on aspirin and Plavix. Intake regular she re fausto on hold. 05/26/2021 Patient examined this morning at the bedside. She denies chest pain or pr essure. She denies shortness of breath. Patient is still unable to move her left lower extremity. She is able to move her left arm but it is very weak. Repeat brain CT yesterday revealed subacute inferior left occipital lobe infarct, stable from comparison. Chronic appearing periventricular white matter ischemic type changes. Patient was resumed on her Xarelto yesterday. PHYSICAL EXAM: VITAL SIGNS: Reviewed. GENERAL: Well-developed in no acute distress. HEENT: Head is normocephalic. Pupils are equal, round. Sclerae anicteric. Mucous membranes of the mouth are moist. Neck supple. No JVD or thyromegaly. + bruit. LUNGS: Respirations even and unlabored. Lungs essentially clear to auscultation bilaterally. HEART: Irregular rate and rhythm. S1 and S2 heard. Systolic murmur noted ABDOMEN: Soft. Nondistended. Nontender. EXTREMITIES: Normal range of motion. No clubbing or cyanosis. Peripheral pulses intact. No lower extremity edema ASSESSMENT: Pre-Syncope Symptomatic bradycardia, status post pacemaker insertion Paroxysmal atrial fibrillation, on anticoagulation with Xarelto Acute CVA with left sided weakness Hypertension Hyperlipidemia History of CVA Diabetes mellitus GERD History of diverticulosis with recent small bowel resection, February 2021 Valvular heart disease PLAN: Continue telemetry monitoring Continue current cardiac medications Continue anticoagulation with Xarelto Neurology following Further recommendations pending patient's course Nurse practitioner note has been reviewed by physician. Signing provider agrees with the documented findings, assessment, and plan of care. Objective - Vital Signs Vital signs: Vital Signs Temp 98.2 F 05/26/21 12:46 Pulse 71 05/26/21 12:46 Resp 16 05/26/21 12:46 BP 172/67 05/26/21 12:46 Pulse Ox 97 05/26/21 12:46 Intake & Output 05/25/21 05/26/21 05/26/21 18:59 06:59 18:59 Intake Total 180 Balance 180 Weight 63 kg 65 kg Intake: Oral 180 Other: Voiding Method Diaper Bedpan Bedpan # Voids 1 3 - Labs CBC & Chem 7: 05/26/21 07:41 05/26/21 07:41 Labs: Abnormal Lab Results - Last 24 Hours (Table) 05/25/21 05/25/21 05/25/21 Range/Units 08:46 16:28 19:34 RBC (3.80-5.40) m/uL Hgb (11.4-16.0) gm/dL Hct (34.0-46.0) % MCH (25.0-35.0) pg MCHC (31.0-37.0) g/dL RDW (11.5-15.5) % Sodium (137-145) mmol/L Chloride (98-107) mmol/L Carbon Dioxide (22-30) mmol/L Glucose (74-99) mg/dL POC Glucose (mg/dL) 146 H (75-99) mg/dL HDL Cholesterol 32.0 L (40.0-60.0) mg/dL Urine Appearance Turbid H (Clear) Urine Protein 2+ H (Negative) Urine Ketones Trace H (Negative) Ur Leukocyte Esterase Large H (Negative) Urine RBC 7 H (0-5) /hpf Urine WBC >182 H (0-5) /hpf Urine WBC Clumps Many H (None) /hpf Ur Squamous Epith Cells 5 H (0-4) /hpf Urine Bacteria Many H (None) /hpf Urine Mucus Rare H (None) /hpf 05/25/21 05/26/21 05/26/21 Range/Units 20:30 06:26 07:41 RBC 3.71 L (3.80-5.40) m/uL Hgb 9.2 L (11.4-16.0) gm/dL Hct 29.9 L (34.0-46.0) % MCH 24.8 L (25.0-35.0) pg MCHC 30.8 L (31.0-37.0) g/dL RDW 16.4 H (11.5-15.5) % Sodium (137-145) mmol/L Chloride (98-107) mmol/L Carbon Dioxide (22-30) mmol/L Glucose (74-99) mg/dL POC Glucose (mg/dL) 118 H 121 H (75-99) mg/dL HDL Cholesterol (40.0-60.0) mg/dL Urine Appearance (Clear) Urine Protein (Negative) Urine Ketones (Negative) Ur Leukocyte Esterase (Negative) Urine RBC (0-5) /hpf Urine WBC (0-5) /hpf Urine WBC Clumps (None) /hpf Ur Squamous Epith Cells (0-4) /hpf Urine Bacteria (None) /hpf Urine Mucus (None) /hpf 05/26/21 05/26/21 Range/Units 07:41 11:45 RBC (3.80-5.40) m/uL Hgb (11.4-16.0) gm/dL Hct (34.0-46.0) % MCH (25.0-35.0) pg MCHC (31.0-37.0) g/dL RDW (11.5-15.5) % Sodium 136 L (137-145) mmol/L Chloride 108 H (98-107) mmol/L Carbon Dioxide 18 L (22-30) mmol/L Glucose 106 H (74-99) mg/dL POC Glucose (mg/dL) 113 H (75-99) mg/dL HDL Cholesterol (40.0-60.0) mg/dL Urine Appearance (Clear) Urine Protein (Negative) Urine Ketones (Negative) Ur Leukocyte Esterase (Negative) Urine RBC (0-5) /hpf Urine WBC (0-5) /hpf Urine WBC Clumps (None) /hpf Ur Squamous Epith Cells (0-4) /hpf Urine Bacteria (None) /hpf Urine Mucus (None) /hpf Microbiology - Last 24 Hours (Table) 05/25/21 19:34 Urine Culture - Preliminary Urine,Clean Catch
--- NOTE | 2021-05-26 13:36 | P.PN ---
Subjective Progress Note Date: 05/26/21 Patient is awake and alert today. She does not have any complaints. She continues to be completely flaccid on the left side. No acute events overnight. Objective - Vital Signs Vital signs: Vital Signs Temp 98.2 F 05/26/21 12:46 Pulse 71 05/26/21 12:46 Resp 16 05/26/21 12:46 BP 172/67 05/26/21 12:46 Pulse Ox 97 05/26/21 12:46 Intake & Output 05/25/21 05/26/21 05/26/21 18:59 06:59 18:59 Intake Total 180 Balance 180 Weight 63 kg 65 kg Intake: Oral 180 Other: Voiding Method Diaper Bedpan Bedpan # Voids 1 3 - Exam General: The patient is awake and alert, in no distress Eye: there is normal conjunctiva bilaterally. Neck: The neck is supple, there is no JVD. Cardiovascular: Irregularly irregular. Normal S1-S2, no S3-S4, no murmurs. Respiratory: Lungs clear to auscultation bilaterally Gastrointestinal: Abdomen is soft, nontender Musculoskeletal: There is no pedal edema. Neurological:. Speech is normal. Patient is flaccid on the left side. Skin: Skin is warm and dry - Labs CBC & Chem 7: 05/26/21 07:41 05/26/21 07:41 Labs: Abnormal Lab Results - Last 24 Hours (Table) 05/25/21 05/25/21 05/25/21 Range/Units 08:46 16:28 19:34 RBC (3.80-5.40) m/uL Hgb (11.4-16.0) gm/dL Hct (34.0-46.0) % MCH (25.0-35.0) pg MCHC (31.0-37.0) g/dL RDW (11.5-15.5) % Sodium (137-145) mmol/L Chloride (98-107) mmol/L Carbon Dioxide (22-30) mmol/L Glucose (74-99) mg/dL POC Glucose (mg/dL) 146 H (75-99) mg/dL HDL Cholesterol 32.0 L (40.0-60.0) mg/dL Urine Appearance Turbid H (Clear) Urine Protein 2+ H (Negative) Urine Ketones Trace H (Negative) Ur Leukocyte Esterase Large H (Negative) Urine RBC 7 H (0-5) /hpf Urine WBC >182 H (0-5) /hpf Urine WBC Clumps Many H (None) /hpf Ur Squamous Epith Cells 5 H (0-4) /hpf Urine Bacteria Many H (None) /hpf Urine Mucus Rare H (None) /hpf 05/25/21 05/26/21 05/26/21 Range/Units 20:30 06:26 07:41 RBC 3.71 L (3.80-5.40) m/uL Hgb 9.2 L (11.4-16.0) gm/dL Hct 29.9 L (34.0-46.0) % MCH 24.8 L (25.0-35.0) pg MCHC 30.8 L (31.0-37.0) g/dL RDW 16.4 H (11.5-15.5) % Sodium (137-145) mmol/L Chloride (98-107) mmol/L Carbon Dioxide (22-30) mmol/L Glucose (74-99) mg/dL POC Glucose (mg/dL) 118 H 121 H (75-99) mg/dL HDL Cholesterol (40.0-60.0) mg/dL Urine Appearance (Clear) Urine Protein (Negative) Urine Ketones (Negative) Ur Leukocyte Esterase (Negative) Urine RBC (0-5) /hpf Urine WBC (0-5) /hpf Urine WBC Clumps (None) /hpf Ur Squamous Epith Cells (0-4) /hpf Urine Bacteria (None) /hpf Urine Mucus (None) /hpf 05/26/21 05/26/21 Range/Units 07:41 11:45 RBC (3.80-5.40) m/uL Hgb (11.4-16.0) gm/dL Hct (34.0-46.0) % MCH (25.0-35.0) pg MCHC (31.0-37.0) g/dL RDW (11.5-15.5) % Sodium 136 L (137-145) mmol/L Chloride 108 H (98-107) mmol/L Carbon Dioxide 18 L (22-30) mmol/L Glucose 106 H (74-99) mg/dL POC Glucose (mg/dL) 113 H (75-99) mg/dL HDL Cholesterol (40.0-60.0) mg/dL Urine Appearance (Clear) Urine Protein (Negative) Urine Ketones (Negative) Ur Leukocyte Esterase (Negative) Urine RBC (0-5) /hpf Urine WBC (0-5) /hpf Urine WBC Clumps (None) /hpf Ur Squamous Epith Cells (0-4) /hpf Urine Bacteria (None) /hpf Urine Mucus (None) /hpf Microbiology - Last 24 Hours (Table) 05/25/21 19:34 Urine Culture - Preliminary Urine,Clean Catch Assessment and Plan Assessment: This is a 80-year-old female who presented to the emergency room with pres yncopal episode. Patient was evaluated and admitted to the hospital for further management of her medical problems noted below. On Monday 05/21, patient was complaining of right hand numbness and a code stroke was called with neurology consultation. At that time, computed tomography scan of the brain showed no acute findings. This was thought to be less likely a stroke and patient anticoagulation with Rivaroxaban and was resumed. On 05/24, patient was complaining of worsening left-sided any plegia and a second code stroke was called on her with repeat imaging showing acute stroke. Patient was seen and evaluated by neurology. 1. Symptomatic bradycardia, status post pacemaker implantation. Home dose of metoprolol was discontinued. Thyroid function tests within normal range. 2. Subacute stroke involving the left parietal lobe, possibly embolic. Patient was seen and evaluated by neurology. Anticoagulation resumed with Rivaroxaban after repeat computed tomography scan showed no evidence of intracranial bleed.. Continue aspirin and Lipitor. Echo with bubble study showed no evidence of shunt or PFO 3. Chronic atrial fibrillation on anticoagulation with Rivaroxaban 4. Type 2 diabetes: Hold home dose of metformin and continue sliding scale insulin 5. Essential hypertension, blood pressure not well controlled. Home dose of hydralazine increased to 100 mg 3 times a day 6. Hypokalemia and Hypomagnesemia, replaced. 7. Uncomplicated UTI started on IV ceftriaxone day #1 8. CODE STATUS: Patient is full code Lipid panel showed total cholesterol of 83 and LDL of 37. PT/OT evaluation. Will check if patient qualifies for acute rehab Repeat lab work in the morning. Anticipate discharge to rehab facility possibly tomorrow
--- NOTE | 2021-05-26 15:49 | P.CONS ---
History of Present Illness - Chief Complaint Gait disturbance - History of Present Illness I had the opportunity to see patient for inpatient rehab consultation with regard to gait disturbance. She is admitted to [facility] May 22 with syncopal episode and bradycardia in the 30s and 40s. Seen by cardiology and did undergo pacemaker and postoperatively with complaints of left-sided weakness. Initial head CT demonstrated chronic atrophy and small vessel change. Chest x-ray negative. Follow-up head CT demonstrated acute left parietal into a simple infarct. Angiogram CT consistent with CHF and and atrophy as well as occlusion 60% left internal carotid and 40% right internal carotid. He had another CT demonstrated left a simple infarct and chronic periventricular white matter change. Seen by telling neurology who notes right-sided weakness. Patient started OT and requires two-person total assistance for bathing, dressing, toileting. PT prescribed. We'll add OT at this time. Previous functional history as elicited from patient: 80-year-old right-handed white female who is lives in one floor home alone. Retired. Describes independent with own cooking, laundry, driving, standing shower and gait without device. PCP Dr. Palma. Denies tobacco or alcohol.. Review of Systems Review of systems: ENT: Denies sneezes or discharge. Eyes: Denies discharge or photophobia. Cardiac: Patient unaware of present take arrhythmia or syncope. Pulmonary: Denies cough or shortness of breath. Breast: Denies discharge or lumps. Gastrointestinal: Denies nausea, emesis, constipation, diarrhea. Genitourinary: Denies discharge or frequency. Musculoskeletal: Denies muscle or bone aches. Neurologic: Left-sided weakness. Endocrine: Denies shakes or sweats. Oncology: Denies cancers. Dermatologic: Denies rash, itching, pruritus. ALLERGY/immunology: Denies sneezes, rashes. Past Medical History Past Medical History: Atrial Fibrillation, Cancer, CVA/TIA, Diabetes Mellitus, GERD/Reflux, Hyperlipidemia, Hypertension, Osteoarthritis (OA), Syncope Additional Past Medical History / Comment(s): Osteoporosis, hiatal hernia, diverticulosis, polyps, cervical cancer, DJD, recent hospitalization for small bowel obstruction & had surgery in February 2021. History of Any Multi-Drug Resistant Organisms: None Reported Past Surgical History: Back Surgery, Bowel Resection, Heart Catheterization, Hysterectomy Additional Past Surgical History / Comment(s): EGD, Colonoscopy, bilateral cataract removed, "fatty tumor" removed from her back, exp. laparotomy w/small bowel resection Past Anesthesia/Blood Transfusion Reactions: No Reported Reaction, Motion Sickness Additional Past Anesthesia/Blood Transfusion Reaction / Comm: Pt has never recieved blood. SON "CODED" POST HIP REPLACEMENT Past Psychological History: Anxiety Additional Psychological History / Comment(s): Pt lives alone. 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 She uses no assistive devices or home care. She drives. Smoking Status: Former smoker Past Alcohol Use History: None Reported Additional Past Alcohol Use History / Comment(s): Pt states she smoked for about 52 yrs 1 ppd and eventually up to 1 10/17 ppd but quit in 2008. Past Drug Use History: None Reported - Past Family History Father Family Medical History: Myocardial Infarction (LA) Additional Family Medical History / Comment(s): Father of a LA at age 76yrs. Mother Family Medical History: CVA/TIA Additional Family Medical History / Comment(s): Mother had a CVA at age 88yrs. She at age 92yrs. Medications and Allergies Home Medications Medication Instructions Recorded Confirmed Type metFORMIN HCL [Glucophage] 500 mg PO BID 07/02/15 05/18/21 History Aspirin 81 mg PO DAILY #1 chewable 07/04/15 05/18/21 Rx Cinnamon Bark [Cinnamon] 500 mg PO DAILY 07/15/15 05/18/21 History Vits A,C,E/Lutein/Minerals 1 tab PO DAILY 07/15/15 05/18/21 History [Ocuvite with Lutein Tablet] Atorvastatin [Lipitor] 40 mg PO HS 04/05/17 05/18/21 History lisinopriL [Zestril] 20 mg PO HS 04/14/17 05/18/21 History Rivaroxaban [Xarelto] 20 mg PO AC-SUPPER 01/22/19 05/18/21 History Omeprazole 20 mg PO HS 09/10/19 05/18/21 History Metoprolol Tartrate [Lopressor] 50 mg PO BID 10/20/20 05/18/21 History hydrALAZINE HCL [Apresoline] 50 mg PO AC-TID #0 10/21/20 05/18/21 Rx Cholecalciferol [Vitamin D3 (25 25 mcg PO DAILY 02/18/21 05/18/21 History Mcg = 1000 Iu)] Nitrofurantoin Monohyd/M-Cryst 100 mg PO Q12HR 05/18/21 05/18/21 History [Macrobid] Allergies Allergy/AdvReac Type Severity Reaction Status Date / Time amlodipine Allergy Anaphylaxis Verified 05/18/21 16:15 isosorbide mononitrate Allergy Rash/Hives Verified 05/18/21 16:15 [From Imdur] Physical Exam Vitals: Vital Signs Temp Pulse Resp BP Pulse Ox 05/26/21 13:58 16 05/26/21 12:46 98.2 F 71 16 172/67 97 05/26/21 09:31 98.7 F 76 16 185/46 96 05/26/21 08:51 95 05/26/21 06:32 181/68 05/26/21 05:26 192/64 05/26/21 04:15 98.7 F 63 18 201/47 95 05/26/21 00:00 98.3 F 70 16 172/72 96 05/25/21 19:55 98.5 F 78 16 157/58 96 Intake and Output 05/26/21 05/26/21 05/26/21 06:59 14:59 22:59 Intake Total 180 Balance 180 Intake: Oral 180 Other: Voiding Method Bedpan Bedpan # Voids 3 2 Weight 65 kg Skin: Good color, texture, turgor. General: Medium build and comfortable appearance. Head: Normocephalic, atraumatic. Eyes: Symmetric. Pupils equal round. Ears: Symmetric. Hearing within normal limits. Mouth: Clear. Neck: Supple. Carotid without bruit. Cardiac: Regular rate and rhythm. Lungs: Clear anteriorly and posteriorly. Abdomen: Soft active nontender. Extremities: Normal tone. Neurological: Mental status: Alert, cooperative, pleasant. Cranial nerves: Symmetric facial tone and trapezius. Motor: Active movement right arm and right leg and poor movement if at all left arm and leg. Sensation: Intact right side. DTRs: Symmetric and equal throughout. Mobility: Requires physical assistance for bed mobility. Results CBC & Chem 7: 05/26/21 07:41 05/26/21 07:41 Labs: Abnormal Lab Results - Last 24 Hours (Table) 05/25/21 05/25/21 05/25/21 Range/Units 08:46 16:28 19:34 RBC (3.80-5.40) m/uL Hgb (11.4-16.0) gm/dL Hct (34.0-46.0) % MCH (25.0-35.0) pg MCHC (31.0-37.0) g/dL RDW (11.5-15.5) % Sodium (137-145) mmol/L Chloride (98-107) mmol/L Carbon Dioxide (22-30) mmol/L Glucose (74-99) mg/dL POC Glucose (mg/dL) 146 H (75-99) mg/dL HDL Cholesterol 32.0 L (40.0-60.0) mg/dL Urine Appearance Turbid H (Clear) Urine Protein 2+ H (Negative) Urine Ketones Trace H (Negative) Ur Leukocyte Esterase Large H (Negative) Urine RBC 7 H (0-5) /hpf Urine WBC >182 H (0-5) /hpf Urine WBC Clumps Many H (None) /hpf Ur Squamous Epith Cells 5 H (0-4) /hpf Urine Bacteria Many H (None) /hpf Urine Mucus Rare H (None) /hpf 05/25/21 05/26/21 05/26/21 Range/Units 20:30 06:26 07:41 RBC 3.71 L (3.80-5.40) m/uL Hgb 9.2 L (11.4-16.0) gm/dL Hct 29.9 L (34.0-46.0) % MCH 24.8 L (25.0-35.0) pg MCHC 30.8 L (31.0-37.0) g/dL RDW 16.4 H (11.5-15.5) % Sodium (137-145) mmol/L Chloride (98-107) mmol/L Carbon Dioxide (22-30) mmol/L Glucose (74-99) mg/dL POC Glucose (mg/dL) 118 H 121 H (75-99) mg/dL HDL Cholesterol (40.0-60.0) mg/dL Urine Appearance (Clear) Urine Protein (Negative) Urine Ketones (Negative) Ur Leukocyte Esterase (Negative) Urine RBC (0-5) /hpf Urine WBC (0-5) /hpf Urine WBC Clumps (None) /hpf Ur Squamous Epith Cells (0-4) /hpf Urine Bacteria (None) /hpf Urine Mucus (None) /hpf 05/26/21 05/26/21 Range/Units 07:41 11:45 RBC (3.80-5.40) m/uL Hgb (11.4-16.0) gm/dL Hct (34.0-46.0) % MCH (25.0-35.0) pg MCHC (31.0-37.0) g/dL RDW (11.5-15.5) % Sodium 136 L (137-145) mmol/L Chloride 108 H (98-107) mmol/L Carbon Dioxide 18 L (22-30) mmol/L Glucose 106 H (74-99) mg/dL POC Glucose (mg/dL) 113 H (75-99) mg/dL HDL Cholesterol (40.0-60.0) mg/dL Urine Appearance (Clear) Urine Protein (Negative) Urine Ketones (Negative) Ur Leukocyte Esterase (Negative) Urine RBC (0-5) /hpf Urine WBC (0-5) /hpf Urine WBC Clumps (None) /hpf Ur Squamous Epith Cells (0-4) /hpf Urine Bacteria (None) /hpf Urine Mucus (None) /hpf Microbiology - Last 24 Hours (Table) 05/25/21 19:34 Urine Culture - Preliminary Urine,Clean Catch Assessment and Plan (1) Bradycardia Current Visit: Yes Status: Acute Code(s): R00.1 - BRADYCARDIA, UNSPECIFIED SNOMED Code(s): 31112991 Plan: Impression: 1. Syncope with bradycardia now requiring pacemaker. 2. Acute stroke result in left hemiparesthesias. 3. Hypertension. 4. Distal be a. 5. Osteoarthritis. 6. Atrophic fibrillation. 7. Reflux. 8. Diabetes. Comments and plan: At this time OT is undergoing inpatient currently currently two-person total assistance. Rehab prognosis currently guarded. Await PT and follow-up OT notes for possible inpatient rehab. Patient was recently an inpatient rehab with benefit and we'll review that stay.
[2021-05-26] MEDS: RIVAROXABAN 20 MG TAB PO SCH (16:30)
[2021-05-26 16:55] LABS: Glucose,Whole Blood 187 mg/dL (75-99)
[2021-05-26 20:04] LABS: Glucose,Whole Blood 231 mg/dL (75-99)
[2021-05-26] MEDS: SODIUM CHLORIDE 0.9% 1,000 ML IV SCH (20:05)
[2021-05-26] MEDS: ATORVASTATIN 40 MG TAB PO SCH (20:24)
[2021-05-26] MEDS: MELATONIN 5 MG TABLET PO SCH (20:24)
--- NOTE | 2021-05-26 23:19 | CT ---
EXAMINATION TYPE: CT brain wo con DATE OF EXAM: 05/26/2021 COMPARISON: Yesterday HISTORY: SMITH CT DLP: 1072.4 mGycm Automated exposure control for dose reduction was used. Images of the brain obtained with no contrast. There is 5.3 x 3.8 cm wedge-shaped area of hypodensity in the left occipital lobe and posterior tempo ral lobe consistent with an infarct without change in size compared to yesterday. There is mild hypod ensity in the periventricular white matter. There is a approximate 4 x 1 cm area of cortical hypodens ity medial right posterior frontal lobe consistent subacute old infarct. There is no midline shift. T here is no sign of intracranial hemorrhage. The calvarium is intact. Skull base is intact. There is n ormal aeration of the mastoid sinuses. IMPRESSION: Subacute infarcts in the right frontal and left occipital lobes without a significant change compared to yesterday. No hemorrhage.
[2021-05-27] MEDS ORDERED: hydrALAZINE HCL 50 MG TAB PO STA (00:03)
--- NOTE | 2021-05-27 00:15 | P.PN ---
Subjective Progress Note Date: 05/26/21 05/26/2021: Patient was seen for a follow-up. Family members were not present. Patient denies headache. Denies any numbness or tingling. Patient is laying comfortably in the bed. Denies any new focal symptoms. 05/25/2021: Patient's son was present today. Patient is laying comfortably in the bed. Patient states she is feeling better. No new neurological symptoms. Denies headache. 05/24/2021: Patient was seen by Dr. Tiffani Stack over the weekend. Please refer to her notes for details. I saw the patient this morning for the first time. Patient came to the hospital on 05/18/2021 on Monday for recurrent near syncopal spells. Patient was found to have irregular heart rhythm, with bradycardia. Cardiology saw the patient and recommended placement of pacemaker, which was done on 05/21/2021. Patient's Xarelto was on hold prior to the procedure, in preparation for the pacemaker. Apparently on Monday night, at 11 PM, patient has a stroke code activated, because she developed sudden onset of numbness of her right side of the lip and hand. She also reported difficulty with word finding. A code stroke was called and the patient was taken for a stat CT scan of the brain. Imaging was negative for acute ischemia and hemorrhage. Patient was seen by Dr. Stack on 05/22/2021, who recommended to resume anticoagulation when OK with cardiology. MRI of the brain was recommended but patient cannot have it because of pacemaker. Subsequently on Monday, yesterday, patient was noted to be confused. Patient also reportedly unable to stand. UTI was considered as well. Patient was resumed on Xarelto and given a dose last night, on Monday at 3:10 PM. This morning patient was noted to have symptoms of left-sided deficits and feeling like sand in her left eye. Examination has revealed left hemiplegia. Patient's NIH stroke scale was reported as 12. Stroke code was again activated. Patient was evaluated by stroke neurologist Dr. Mcguire, , computed tomography scan of head and CTA of head and neck were recommended. CT head showed acute infarct posterior left parietal lobe extending into the inferior left occipital lobe. The degree of hypodensity suggests greater than 6 hours in duration. No midline shift or hemorrhagic transformation. This probably subacute. No acute stroke seen in the right hemispheric region. CTA of head revealed severe stenosis/subtotal occlusion posterior P2 segment left SERVICE WRITER corresponds to vascular territory for the patient's acute left-sided infarct. CTA of the neck showed: The precarinal lymph node in the mediastinum is increase in size at 1.7 cm versus 1.2 cm on 01/15/2021. This may be reactive given the small right effusion and septal lines in the upper lungs. Correlate for mild CHF. Appropriate oncologic follow-up is indicated. Atherosclerotic change at both bifurcations resulting in a moderate, approximately 60% proximal left ICA stenosis and mild 40% proximal right ICA stenosis. Incidental dominant left vertebral artery. Objective - Vital Signs Vital signs: Vital Signs Temp 98.5 F 05/26/21 16:26 Pulse 64 05/26/21 16:26 Resp 16 05/26/21 16:26 BP 173/63 05/26/21 16:26 Pulse Ox 97 05/26/21 16:26 Intake & Output 05/25/21 05/26/21 05/26/21 18:59 06:59 18:59 Intake Total 180 Balance 180 Weight 63 kg 65 kg Intake: Oral 180 Other: Voiding Method Diaper Bedpan Bedpan # Voids 1 3 2 - Exam Patient's neurological examination his most improved. Her NIH stroke scale is stable 7, entirely for left hemiparesis (left arm better, but patient was neglecting right leg). Patient is alert and awake, normal mentation. Patient can name 2/2 objects presented (knuckles, earlobe) and repeat very well. She was able to read but with some difficulty and some paraphasia. Her speech expression and comprehension is normal. No dysarthria. On cranial nerve examination pupils. She could tell her age and the current month. On cranial nerve examination pupils are round and reacting, visual callejas reveals no definitive visual field deficit. Patient will not keep gaze in the Center and would immediately look to (moves gaze) to the right hand on any movement. No facial asymmetry. Tongue protrudes to the midline. Palatal elevation is normal. Hearing is slightly decreased (baseline), shoulder shrug normal. On muscle strength testing patient is able to lift her left arm off the bed about 20, and able to hold it 10 off the bed. Patient able to move her left hand better. Her left leg is still flaccid. Sensory is equal on both sides, although she slightly neglects right leg on double simultaneous stimulation. No sensory neglect in the upper limbs. No ataxia for [id number] on the right, cannot check on the left. Gait cannot be checked. Reflexes are 1+, and plantar is downgoing on the right, up on the left. - Labs CBC & Chem 7: 05/26/21 07:41 05/26/21 07:41 Labs: Abnormal Lab Results - Last 24 Hours (Table) 05/25/21 05/25/21 05/25/21 Range/Units 08:46 19:34 20:30 RBC (3.80-5.40) m/uL Hgb (11.4-16.0) gm/dL Hct (34.0-46.0) % MCH (25.0-35.0) pg MCHC (31.0-37.0) g/dL RDW (11.5-15.5) % Sodium (137-145) mmol/L Chloride (98-107) mmol/L Carbon Dioxide (22-30) mmol/L Glucose (74-99) mg/dL POC Glucose (mg/dL) 118 H (75-99) mg/dL HDL Cholesterol 32.0 L (40.0-60.0) mg/dL Urine Appearance Turbid H (Clear) Urine Protein 2+ H (Negative) Urine Ketones Trace H (Negative) Ur Leukocyte Esterase Large H (Negative) Urine RBC 7 H (0-5) /hpf Urine WBC >182 H (0-5) /hpf Urine WBC Clumps Many H (None) /hpf Ur Squamous Epith Cells 5 H (0-4) /hpf Urine Bacteria Many H (None) /hpf Urine Mucus Rare H (None) /hpf 05/26/21 05/26/21 05/26/21 Range/Units 06:26 07:41 07:41 RBC 3.71 L (3.80-5.40) m/uL Hgb 9.2 L (11.4-16.0) gm/dL Hct 29.9 L (34.0-46.0) % MCH 24.8 L (25.0-35.0) pg MCHC 30.8 L (31.0-37.0) g/dL RDW 16.4 H (11.5-15.5) % Sodium 136 L (137-145) mmol/L Chloride 108 H (98-107) mmol/L Carbon Dioxide 18 L (22-30) mmol/L Glucose 106 H (74-99) mg/dL POC Glucose (mg/dL) 121 H (75-99) mg/dL HDL Cholesterol (40.0-60.0) mg/dL Urine Appearance (Clear) Urine Protein (Negative) Urine Ketones (Negative) Ur Leukocyte Esterase (Negative) Urine RBC (0-5) /hpf Urine WBC (0-5) /hpf Urine WBC Clumps (None) /hpf Ur Squamous Epith Cells (0-4) /hpf Urine Bacteria (None) /hpf Urine Mucus (None) /hpf 05/26/21 05/26/21 Range/Units 11:45 16:53 RBC (3.80-5.40) m/uL Hgb (11.4-16.0) gm/dL Hct (34.0-46.0) % MCH (25.0-35.0) pg MCHC (31.0-37.0) g/dL RDW (11.5-15.5) % Sodium (137-145) mmol/L Chloride (98-107) mmol/L Carbon Dioxide (22-30) mmol/L Glucose (74-99) mg/dL POC Glucose (mg/dL) 113 H 187 H (75-99) mg/dL HDL Cholesterol (40.0-60.0) mg/dL Urine Appearance (Clear) Urine Protein (Negative) Urine Ketones (Negative) Ur Leukocyte Esterase (Negative) Urine RBC (0-5) /hpf Urine WBC (0-5) /hpf Urine WBC Clumps (None) /hpf Ur Squamous Epith Cells (0-4) /hpf Urine Bacteria (None) /hpf Urine Mucus (None) /hpf Microbiology - Last 24 Hours (Table) 05/25/21 19:34 Urine Culture - Preliminary Urine,Clean Catch Assessment and Plan Assessment: * Acute recurrent embolic strokes, 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 Patient had an subacute CVA involving the left parietal lobe extending into the inferior left occipital lobe noticed on current computed tomography scan, which is likely from the stroke on 05/21/2021. This probably has presented with a right homonymous hemianopia, mild aphasia and alexia, all of them seem to have improved now. Patient's acute left hemiplegia is likely due to CVA involving the right JOHNATHON territory. Patient remains stable with NIH stroke scale of 7. * Paroxysmal Atrial fibrillation on long-term anticoagulation. * Bilateral ICA stenosis 60% left ICA and 40% right ICA. * Severe stenosis/subtotal occlusion posterior P2 segment left SERVICE WRITER, likely embolic. * Status post pacemaker placement 05/21/2021 * Hypertension * Hyperlipidemia * Diabetes * Positive family history of strokes in her mother. Plan: * Patient's neurological examination is stable. Patient denies headache. * Patient's last computed tomography scan of the head performed at 3:32 PM 05/25/2021 revealed subacute inferior left occipital lobe infarct, stable from comparison. No hemorrhage. Patient has some mild encephalomalacia involving the right JOHNATHON territory, which likely is the cause of left hemiparesis. * Patient is on Xarelto 20 mg and aspirin 81 mg for stroke prevention related to atrial fibrillation. * Hemoglobin A1c 6.3 on 10/21/2020. * Lipid panel with cholesterol 83, LDL 37.6, HDL 32 and triglycerides 67. Continue Lipitor 40 mg. TSH normal at 2.2. * CTA of the neck showed enlarged precarinal lymph node. Will defer IM to address this issue.
--- NOTE | 2021-05-27 00:28 | P.PN ---
Progress Note - Text Progress Note Date: 05/27/21 The nurse sent a perfect serve at 10:06 PM that patient complaining of a new onset right hand tingling and facial numbness and tingling. Patient did not report of headache, but when she was asked specifically, patient stated "no not really, well, a little bit". She rated it 4/10 and pointed to the back of her head at the base of the neck. Stat computed tomography scan of the head was done. It was reported as no change with no hemorrhage. However on my review, there was evidence of a small petechial hemorrhage in the right medial frontal region. I reviewed it with the radiologist and he concurred. Discussed case with patient's primary physician, Dr Gerardo, who performed physical examination and noticed no change in her neuro status. Patient was not complaining of headache. We will stop Xarelto and aspirin at this time. Repeat computed tomography scan of the head at 10 AM. Neuro checks every 1 hour for next 10 hours. If the symptoms gets worse, patient would need reversal of anticoagulation with Xarelto. Consider transfer to ICU for close monitoring. Blood pressure to maintain <140/90 all time. Tried to contact patient's cone runner Dr. Muniz as well. Kylah Cisneros MD
--- NOTE | 2021-05-27 01:02 | P.EN ---
80 year old female with subacute stroke thought to be due to recurrent embolic stroke resulting in left sided weakness. also found to have embolic stenosis of posterior P2 left GENERAL LEDGER ACCOUNTANT. . P. afib on xarelto s/p pacemaker 05/21/21. , hypertension , hyperlipidemia , and DM today RN , noted that patient complaining of a new onset right hand tingling and facial numbness and tingling. with mild occipital headache at the base of her neck rated 3-4/10. neurology notified and CT of the brain done without contrast. initially reported by radiology to be unchanged from prior, however, upon neurology review , it was noted to have small petechial hemorrhage in the right medial frontal lobe. this was again confirmed by radiology . patient re-evaluated , and currently reports that her new symptoms of numbness and tingling are completely resolved. she still has the headache but reported to be mild. she seems to be comfortable . and her neuro exam now unchanged from prior with residual left sided weakness over upper and worse over lower extremity (again unchanged from prior ). after discussing with neurology seasonal delivery driver Kylah Garland, plan as follows acute small petechial hemorrhage in the right medial frontal lobe uncontrolled blood pressure aggressive tight BP control with goal BP <140/90, use nicardipine drip transfer to ICU for close monitoring neuro checks every [address] in AM at 10 am stop xarelto and aspirin await cardiology input regarding if they are ok with reversing xarelto with Kcentra in light of her recent pacemaker for P. afib and suspected recurrent embolic stroke case discussed with ICU dr. Pritchard I will update family with the above plan Total amount of critical care time spent was 68 minutes not counting procedures performed.
[2021-05-27 01:14] LABS: Glucose,Whole Blood 144 mg/dL (75-99)
[2021-05-27] MEDS: niCARdipine 20 MG in SODIUM CHLORIDE 0.9% 192 ML IV SCH ×6 (01:27→20:53)
[2021-05-27] MEDS ORDERED: NALOXONE 0.4 MG/ML 1 ML VIAL IV PRN (05:33)
[2021-05-27 06:34] LABS: Glucose,Whole Blood 163 mg/dL (75-99)
[2021-05-27] MEDS: PANTOPRAZOLE 40 MG TABLET PO SCH (06:38)
[2021-05-27] MEDS: INSULIN ASPART (NovoLOG) 100 UNIT/ML VIAL SQ SCH ×4 (06:38→20:38)
[2021-05-27] MEDS: hydrALAZINE HCL 50 MG TAB PO SCH ×3 (06:38→16:35)
[2021-05-27 06:41] LABS: Anisocytosis Slight; Basophils # (A) 0.1 k/uL (0-0.2); Basophils % (A) 1 %; Eosinophils # (A) 0.2 k/uL (0-0.7); Eosinophils % (A) 2 %; HCT 30.3 % (34.0-46.0); HGB 9.4 gm/dL (11.4-16.0); Hypochromasia Moderate; Lymphocytes # (A) 1.7 k/uL (1.0-4.8); Lymphocytes % (A) 17 %; MCH 24.5 pg (25.0-35.0); MCHC 31.2 g/dL (31.0-37.0); MCV 78.6 fL (80.0-100.0); Mean Platelet Volume 7.7; Microcytosis Slight; Monocytes # (A) 0.6 k/uL (0-1.0); Monocytes % (A) 6 %; Neutrophils # (A) 7.2 k/uL (1.3-7.7); Neutrophils % (A) 72 %; Platelet Count 401 k/uL (150-450); RBC 3.85 m/uL (3.80-5.40); RDW 16.6 % (11.5-15.5)
[2021-05-27 07:02] LABS: African American GFR (CKD) >90 (>60 ml/min/1.73 sqM); Anion Gap 9 mmol/L; Blood Urea Nitrogen 14 mg/dL (7-17); Calcium 8.8 mg/dL (8.4-10.2); Carbon Dioxide 20 mmol/L (22-30); Chloride 109 mmol/L (98-107); Glucose 151 mg/dL (74-99); Magnesium 1.6 mg/dL (1.6-2.3); Non-African American GFR(CKD) 85 (>60 ml/min/1.73 sqM); Potassium 3.8 mmol/L (3.5-5.1); Sodium 138 mmol/L (137-145)
[2021-05-27] MEDS ORDERED: Potassium Replacement Protocol 1 EACH MISC MISCELLANE PRN (07:08)
[2021-05-27] MEDS ORDERED: Magnesium Replacement Protocol 1 EACH MISC MISCELLANE PRN (07:08)
[2021-05-27] MEDS ORDERED: POTASSIUM CHLORIDE ER 20 MEQ TAB.ER PO SCH (08:00)
--- NOTE | 2021-05-27 08:22 | XR ---
EXAMINATION TYPE: XR chest 1V DATE OF EXAM: 05/27/2021 COMPARISON: 05/22/2021 HISTORY: 80-year-old female crackles TECHNIQUE: Single frontal view of the chest is obtained. FINDINGS: Left anterior chest wall pacemaker generator with right ventricular lead. Heart upper limits of jacob l size. Extreme right apex excluded from view. The splenic artery calcifications. Hyperinflation. Interstitial prominence is similar. Some nodularit y at the right base projecting behind the hemidiaphragm is unchanged and compatible with a calcified granuloma per the 02/18/2021 CT of the abdomen. IMPRESSION: COPD changes. Evidence of prior granulomatous disease. No definite acute process.
[2021-05-27] MEDS: MAGNESIUM SULFATE-D5W PMX 1 GM in DEXTROSE/WATER 1 100ML.BAG IVPB SCH ×2 (09:02→11:58)
[2021-05-27] MEDS: lisinopriL 20 MG TAB PO SCH ×2 (09:04→20:38)
[2021-05-27] MEDS: MAGNESIUM OXIDE 400 MG TAB PO SCH (09:04)
[2021-05-27] MEDS: CHOLECALCIFEROL 25 MCG (1000 IU) TABLET PO SCH (09:04)
--- NOTE | 2021-05-27 09:43 | P.CNPUL ---
History of Present Illness Consult date: 05/27/21 Requesting physician: Isa Gerardo Reason for consult: other (Critical care management) Chief complaint: Left-sided weakness, embolic stroke, bleed History of present illness: This is an 80-year-old female patient with a known history of hyperlipidemia, hypertension, diabetes mellitus, atrial fibrillation with significant bradycardia rate with syncope and she was admitted back on May 28 for the same. She subsequently undergone single chamber pacemaker insertion on 05/21/2021. On 05/22/2021 she developed sudden onset of numbness of her right lip and right hand and dysphagia. A code stroke was called and computed tomography scan revealed no acute ischemia or hemorrhage. She has been having ongoing symptoms and has had total of 5 CT scans of the brain this admission. Including a CT angiography that did reveal severe stenosis/subtotal occlusion of the posterior P2 segment of the left IRRIGATION ENGINEER which corresponds with the vascular territory the patient's acute left-sided infarct noted on 05/24/2021. Approximate 1:00 this morning the patient had a new onset of right hand tingling and facial numbness and a mild occipital headache. Follow-up computed tomography scan of the brain revealed a small petechial hemorrhage on the right medial frontal lobe. Based on these findings she was transferred here to the intensive care unit. Neurology is recommending aggressive tight blood pressure control with a goal BP less than 140/90. She was initiated on a nicardipine d rip. Currently at 10 mg per hour. She remains in atrial fibrillation. Her aspirin and Xarelto are on hold. She is seen today in consultation in the ICU. She is currently awake and alert. She is maintaining O2 saturations in the 90s on room air. No IV fluids other than the Cardene drip. She remains in atrial fibrillation with backup pacing at 60 bpm. X-ray reveals evidence of COPD. Previous granulomatous disease. No acute pulmonary process. She is due for follow-up computed tomography scan of the brain at 10 AM. Review of Systems REVIEW OF SYSTEMS: CONSTITUTIONAL: Denies any recent significant weight loss or weight gain. EYES: Denies change in vision. EARS, NOSE, MOUTH, THROAT: Mild right occipital area headache CARDIOVASCULAR: Denies chest pain, palpitations or syncopal episodes. RESPIRATORY: Denies shortness of breath, cough, congestion or hemoptysis. GASTROINTESTINAL: Denies change in appetite, denies abdominal pain GENITOURINARY: Denies hematuria, denies infections. MUSKULOSKELETAL: Denies pain, denies swelling. INTEGUMENTARY: Denies rash, denies eczema. NEUROLOGICAL: Ongoing symptoms of tingling and numbness initially in the left side now on the right side PSYCHIATRIC: Denies anxiety, denies depression. HEMATOLOGIC/LYMPHATIC: Denies anemia, denies enlarged lymph nodes. Past Medical History Past Medical History: Atrial Fibrillation, Cancer, CVA/TIA, Diabetes Mellitus, GERD/Reflux, Hyperlipidemia, Hypertension, Osteoarthritis (OA), Syncope Additional Past Medical History / Comment(s): Osteoporosis, hiatal hernia, diverticulosis, polyps, cervical cancer, DJD, recent hospitalization for small bowel obstruction & had surgery in February 2021. History of Any Multi-Drug Resistant Organisms: None Reported Past Surgical History: Back Surgery, Bowel Resection, Heart Catheterization, Hysterectomy Additional Past Surgical History / Comment(s): EGD, Colonoscopy, bilateral cataract removed, "fatty tumor" removed from her back, exp. laparotomy w/small bowel resection Past Anesthesia/Blood Transfusion Reactions: No Reported Reaction, Motion Sickness Additional Past Anesthesia/Blood Transfusion Reaction / Comment(s): Pt has never recieved blood. SON "CODED" POST HIP REPLACEMENT Past Psychological History: Anxiety Additional Psychological History / Comment(s): Pt lives alone. 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 She uses no assistive devices or home care. She drives. Smoking Status: Former smoker Past Alcohol Use History: None Reported Additional Past Alcohol Use History / Comment(s): Pt states she smoked for about 52 yrs 1 ppd and eventually up to 1 1/2 ppd but quit in 2008. Past Drug Use History: None Reported - Past Family History Father Family Medical History: Myocardial Infarction (MO) Additional Family Medical History / Comment(s): Father of a MO at age 76yrs. Mother Family Medical History: CVA/TIA Additional Family Medical History / Comment(s): Mother had a CVA at age 88yrs. She at age 92yrs. Medications and Allergies Home Medications Medication Instructions Recorded Confirmed Type metFORMIN HCL [Glucophage] 500 mg PO BID 07/02/15 05/18/21 History Aspirin 81 mg PO DAILY #1 chewable 07/04/15 05/18/21 Rx Cinnamon Bark [Cinnamon] 500 mg PO DAILY 07/15/15 05/18/21 History Vits A,C,E/Lutein/Minerals 1 tab PO DAILY 07/15/15 05/18/21 History [Ocuvite with Lutein Tablet] Atorvastatin [Lipitor] 40 mg PO HS 04/05/17 05/18/21 History lisinopriL [Zestril] 20 mg PO HS 04/14/17 05/18/21 History Rivaroxaban [Xarelto] 20 mg PO AC-SUPPER 01/22/19 05/18/21 History Omeprazole 20 mg PO HS 09/10/19 05/18/21 History Metoprolol Tartrate [Lopressor] 50 mg PO BID 10/20/20 05/18/21 History hydrALAZINE HCL [Apresoline] 50 mg PO AC-TID #0 10/21/20 05/18/21 Rx Cholecalciferol [Vitamin D3 (25 25 mcg PO DAILY 02/18/21 05/18/21 History Mcg = 1000 Iu)] Nitrofurantoin Monohyd/M-Cryst 100 mg PO Q12HR 05/18/21 05/18/21 History [Macrobid] Allergies Allergy/AdvReac Type Severity Reaction Status Date / Time amlodipine Allergy Anaphylaxis Verified 05/18/21 16:15 isosorbide mononitrate Allergy Rash/Hives Verified 05/18/21 16:15 [From dur] Physical Exam Vitals: Vital Signs Temp Pulse Pulse Resp BP BP BP 05/27/21 07:00 89 19 129/86 05/27/21 06:45 89 18 143/58 05/27/21 06:30 89 25 H 153/61 05/27/21 06:15 94 26 H 137/51 05/27/21 06:00 91 25 H 149/70 05/27/21 05:45 91 19 146/54 05/27/21 05:30 76 20 143/59 05/27/21 05:15 79 19 153/47 05/27/21 05:00 88 17 140/54 05/27/21 04:45 85 14 155/55 05/27/21 04:30 79 18 148/68 05/27/21 04:15 86 18 157/97 05/27/21 04:00 99.4 F 89 96 15 146/54 153/47 05/27/21 03:45 91 9 L 137/48 05/27/21 03:30 105 H 24 125/63 05/27/21 03:15 77 20 126/48 05/27/21 03:00 84 14 144/68 05/27/21 02:45 103 H 25 H 134/43 05/27/21 02:30 101 H 25 H 154/54 05/27/21 02:15 100 26 H 166/56 05/27/21 02:00 95 29 H 150/62 05/27/21 01:45 92 23 178/68 05/27/21 01:30 90 24 178/68 05/27/21 01:15 97 21 178/68 05/27/21 01:11 86 30 H 05/27/21 00:12 188/61 05/26/21 23:28 98.2 F 90 18 166/58 05/26/21 20:00 99.1 F 74 18 159/51 05/26/21 16:26 98.5 F 64 16 173/63 05/26/21 13:58 16 05/26/21 12:46 98.2 F 71 16 172/67 05/26/21 09:31 98.7 F 76 16 185/46 Pulse Ox 05/27/21 07:00 92 L 05/27/21 06:45 92 L 05/27/21 06:30 92 L 05/27/21 06:15 05/27/21 06:00 92 L 05/27/21 05:45 94 L 05/27/21 05:30 91 L 05/27/21 05:15 93 L 05/27/21 05:00 92 L 05/27/21 04:45 93 L 05/27/21 04:30 94 L 05/27/21 04:15 92 L 05/27/21 04:00 92 L 05/27/21 03:45 91 L 05/27/21 03:30 90 L 05/27/21 03:15 89 L 05/27/21 03:00 92 L 05/27/21 02:45 93 L 05/27/21 02:30 89 L 05/27/21 02:15 91 L 05/27/21 02:00 92 L 05/27/21 01:45 93 L 05/27/21 01:30 95 05/27/21 01:15 96 05/27/21 01:11 96 05/27/21 00:12 05/26/21 23:28 95 05/26/21 20:00 96 05/26/21 16:26 97 05/26/21 13:58 05/26/21 12:46 97 05/26/21 09:31 96 Intake and Output 05/26/21 05/27/21 05/27/21 22:59 06:59 14:59 Intake Total 400.000 53.333 Output Total 220 150 0 Balance -220 250.000 53.333 Intake: Intake, IV Titration 400.000 53.333 Amount niCARdipine 20 mg In 400.000 53.333 Sodium Chloride 0.9% 192 ml @ 5 MG/HR 50 mls/hr IV .Q4H [facility] Rx#:[id number] Oral 0 0 Output: Urine 220 150 0 Other: Voiding Method Bedpan Bedpan Diaper # Voids 1 Weight 65.3 kg GENERAL EXAM: Alert, pleasant 80-year-old female patient, on room air, comfortable in no apparent distress. HEAD: Normocephalic. EYES: Normal reaction of pupils, equal size. NOSE: Clear with pink turbinates. THROAT: No erythema or exudates. NECK: No masses, no JVD. CHEST: No chest wall deformity. LUNGS: Equal air entry with no crackles, wheeze, rhonchi or dullness. CVS: S1 and S2 normal with no audible murmur, regular rhythm. ABDOMEN: No hepatosplenomegaly, normal bowel sounds, no guarding or rigidity. SPINE: No scoliosis or deformity SKIN: No rashes CENTRAL NERVOUS SYSTEM: No focal deficits, tone is normal in all 4 extremities. EXTREMITIES: There is no peripheral edema. No clubbing, no cyanosis. Peripheral pulses are intact. Results - Laboratory Findings CBC and BMP: 05/27/21 06:26 05/27/21 06:26 PT/INR, D-dimer PT 11.4 sec (9.0-12.0) 05/25/21 08:46 INR 1.1 (<1.2) 05/25/21 08:46 Abnormal lab findings: Abnormal Labs 05/18/21 05/18/21 05/18/21 14:50 14:50 14:50 RBC Hgb 10.3 L Hct 32.7 L MCV 79.5 L MCH 24.9 L MCHC RDW 16.9 H PT 12.2 H INR 1.2 H APTT Sodium Potassium Chloride Carbon Dioxide 20 L Glucose 114 H POC Glucose (mg/dL) Hemoglobin A1c Calcium Magnesium 1.5 L Troponin I Total Protein Albumin HDL Cholesterol Urine Appearance Urine Protein Urine Ketones Ur Leukocyte Esterase Urine RBC Urine WBC Urine WBC Clumps Ur Squamous Epith Cells Urine Bacteria Hyaline Casts Urine Mucus 05/18/21 05/18/21 05/19/21 18:45 21:42 02:34 RBC 3.78 L Hgb 9.4 L Hct 30.5 L MCV MCH 24.8 L MCHC 30.7 L RDW 16.7 H PT INR APTT Sodium Potassium Chloride Carbon Dioxide Glucose POC Glucose (mg/dL) 106 H 154 H Hemoglobin A1c Calcium Magnesium Troponin I Total Protein Albumin HDL Cholesterol Urine Appearance Urine Protein Urine Ketones Ur Leukocyte Esterase Urine RBC Urine WBC Urine WBC Clumps Ur Squamous Epith Cells Urine Bacteria Hyaline Casts Urine Mucus 05/19/21 05/19/21 05/19/21 02:34 07:01 11:59 RBC Hgb Hct MCV MCH MCHC RDW PT INR APTT Sodium Potassium Chloride 108 H Carbon Dioxide 20 L Glucose 118 H POC Glucose (mg/dL) 117 H 190 H Hemoglobin A1c Calcium Magnesium Troponin I Total Protein Albumin HDL Cholesterol Urine Appearance Urine Protein Urine Ketones Ur Leukocyte Esterase Urine RBC Urine WBC Urine WBC Clumps Ur Squamous Epith Cells Urine Bacteria Hyaline Casts Urine Mucus 05/19/21 05/19/21 05/19/21 15:49 17:13 20:11 RBC Hgb Hct MCV MCH MCHC RDW PT INR APTT Sodium Potassium Chloride Carbon Dioxide Glucose POC Glucose (mg/dL) 151 H 124 H 114 H Hemoglobin A1c Calcium Magnesium Troponin I Total Protein Albumin HDL Cholesterol Urine Appearance Urine Protein Urine Ketones Ur Leukocyte Esterase Urine RBC Urine WBC Urine WBC Clumps Ur Squamous Epith Cells Urine Bacteria Hyaline Casts Urine Mucus 05/20/21 05/20/21 05/20/21 05:59 09:43 11:47 RBC Hgb 9.5 L Hct 31.5 L MCV MCH 24.2 L MCHC 30.1 L RDW 16.8 H PT INR APTT Sodium Potassium Chloride Carbon Dioxide Glucose POC Glucose (mg/dL) 118 H 126 H Hemoglobin A1c Calcium Magnesium Troponin I Total Protein Albumin HDL Cholesterol Urine Appearance Urine Protein Urine Ketones Ur Leukocyte Esterase Urine RBC Urine WBC Urine WBC Clumps Ur Squamous Epith Cells Urine Bacteria Hyaline Casts Urine Mucus 05/20/21 05/20/21 05/21/21 14:38 20:09 06:12 RBC Hgb Hct MCV MCH MCHC RDW PT INR APTT 37.7 H Sodium Potassium Chloride Carbon Dioxide Glucose POC Glucose (mg/dL) 118 H 124 H Hemoglobin A1c Calcium Magnesium Troponin I Total Protein Albumin HDL Cholesterol Urine Appearance Urine Protein Urine Ketones Ur Leukocyte Esterase Urine RBC Urine WBC Urine WBC Clumps Ur Squamous Epith Cells Urine Bacteria Hyaline Casts Urine Mucus 05/21/21 05/21/21 05/21/21 10:34 10:34 11:43 RBC 3.61 L Hgb 8.9 L Hct 28.7 L MCV 79.7 L MCH 24.6 L MCHC 30.9 L RDW 16.7 H PT INR APTT Sodium Potassium Chloride 111 H Carbon Dioxide 20 L Glucose 108 H POC Glucose (mg/dL) 110 H Hemoglobin A1c Calcium Magnesium 1.5 L Troponin I Total Protein Albumin HDL Cholesterol Urine Appearance Urine Protein Urine Ketones Ur Leukocyte Esterase Urine RBC Urine WBC Urine WBC Clumps Ur Squamous Epith Cells Urine Bacteria Hyaline Casts Urine Mucus 05/21/21 05/21/21 05/21/21 16:36 17:37 20:17 RBC Hgb Hct MCV MCH MCHC RDW PT INR APTT Sodium Potassium Chloride Carbon Dioxide Glucose POC Glucose (mg/dL) 111 H 141 H Hemoglobin A1c Calcium Magnesium 1.4 L Troponin I Total Protein Albumin HDL Cholesterol Urine Appearance Urine Protein Urine Ketones Ur Leukocyte Esterase Urine RBC Urine WBC Urine WBC Clumps Ur Squamous Epith Cells Urine Bacteria Hyaline Casts Urine Mucus 05/21/21 05/22/21 05/22/21 23:12 00:03 00:03 RBC 3.72 L Hgb 9.1 L Hct 30.0 L MCV MCH 24.5 L MCHC 30.3 L RDW 16.5 H PT INR APTT 21.5 L Sodium Potassium Chloride Carbon Dioxide Glucose POC Glucose (mg/dL) 149 H Hemoglobin A1c Calcium Magnesium Troponin I Total Protein Albumin HDL Cholesterol Urine Appearance Urine Protein Urine Ketones Ur Leukocyte Esterase Urine RBC Urine WBC Urine WBC Clumps Ur Squamous Epith Cells Urine Bacteria Hyaline Casts Urine Mucus 05/22/21 05/22/21 05/22/21 00:03 00:03 06:34 RBC Hgb Hct MCV MCH MCHC RDW PT INR APTT Sodium Potassium Chloride 108 H Carbon Dioxide 19 L Glucose 137 H POC Glucose (mg/dL) 139 H Hemoglobin A1c Calcium Magnesium Troponin I 0.056 H* Total Protein 5.9 L Albumin HDL Cholesterol Urine Appearance Urine Protein Urine Ketones Ur Leukocyte Esterase Urine RBC Urine WBC Urine WBC Clumps Ur Squamous Epith Cells Urine Bacteria Hyaline Casts Urine Mucus 05/22/21 05/22/21 05/22/21 09:30 09:30 12:02 RBC 3.56 L Hgb 9.1 L Hct 28.5 L MCV MCH MCHC RDW 16.6 H PT INR APTT Sodium Potassium Chloride 109 H Carbon Dioxide 21 L Glucose 160 H POC Glucose (mg/dL) 111 H Hemoglobin A1c Calcium Magnesium Troponin I Total Protein Albumin HDL Cholesterol Urine Appearance Urine Protein Urine Ketones Ur Leukocyte Esterase Urine RBC Urine WBC Urine WBC Clumps Ur Squamous Epith Cells Urine Bacteria Hyaline Casts Urine Mucus 05/22/21 05/22/21 05/23/21 17:01 19:48 05:34 RBC Hgb Hct MCV MCH MCHC RDW PT INR APTT Sodium Potassium Chloride Carbon Dioxide Glucose POC Glucose (mg/dL) 128 H 171 H 123 H Hemoglobin A1c Calcium Magnesium Troponin I Total Protein Albumin HDL Cholesterol Urine Appearance Urine Protein Urine Ketones Ur Leukocyte Esterase Urine RBC Urine WBC Urine WBC Clumps Ur Squamous Epith Cells Urine Bacteria Hyaline Casts Urine Mucus 05/23/21 05/23/21 05/23/21 11:22 16:54 17:36 RBC Hgb Hct MCV MCH MCHC RDW PT INR APTT Sodium Potassium Chloride Carbon Dioxide Glucose POC Glucose (mg/dL) 113 H 107 H Hemoglobin A1c Calcium Magnesium Troponin I Total Protein Albumin HDL Cholesterol Urine Appearance Urine Protein 2+ H Urine Ketones Trace H Ur Leukocyte Esterase Urine RBC Urine WBC Urine WBC Clumps Ur Squamous Epith Cells 8 H Urine Bacteria Hyaline Casts 4 H Urine Mucus Rare H 05/23/21 05/24/21 05/24/21 20:01 06:07 08:34 RBC Hgb Hct MCV MCH MCHC RDW PT INR APTT Sodium Potassium Chloride Carbon Dioxide Glucose POC Glucose (mg/dL) 118 H 113 H 115 H Hemoglobin A1c Calcium Magnesium Troponin I Total Protein Albumin HDL Cholesterol Urine Appearance Urine Protein Urine Ketones Ur Leukocyte Esterase Urine RBC Urine WBC Urine WBC Clumps Ur Squamous Epith Cells Urine Bacteria Hyaline Casts Urine Mucus 05/24/21 05/24/21 05/24/21 09:11 09:11 09:11 RBC 3.34 L Hgb 8.3 L Hct 26.8 L MCV MCH 24.8 L MCHC 30.9 L RDW 16.6 H PT INR APTT Sodium Potassium 3.4 L Chloride 110 H Carbon Dioxide 18 L Glucose 101 H POC Glucose (mg/dL) Hemoglobin A1c 6.1 H Calcium 8.1 L Magnesium Troponin I Total Protein 5.1 L Albumin 2.7 L HDL Cholesterol Urine Appearance Urine Protein Urine Ketones Ur Leukocyte Esterase Urine RBC Urine WBC Urine WBC Clumps Ur Squamous Epith Cells Urine Bacteria Hyaline Casts Urine Mucus 05/24/21 05/24/21 05/24/21 11:18 11:38 16:47 RBC Hgb Hct MCV MCH MCHC RDW PT 12.7 H INR 1.2 H APTT Sodium Potassium Chloride Carbon Dioxide Glucose POC Glucose (mg/dL) 104 H 104 H Hemoglobin A1c Calcium Magnesium Troponin I Total Protein Albumin HDL Cholesterol Urine Appearance Urine Protein Urine Ketones Ur Leukocyte Esterase Urine RBC Urine WBC Urine WBC Clumps Ur Squamous Epith Cells Urine Bacteria Hyaline Casts Urine Mucus 05/24/21 05/25/21 05/25/21 20:43 06:24 08:46 RBC Hgb Hct MCV MCH MCHC RDW PT INR APTT Sodium Potassium Chloride 110 H Carbon Dioxide 20 L Glucose 110 H POC Glucose (mg/dL) 156 H 122 H Hemoglobin A1c Calcium Magnesium Troponin I Total Protein Albumin HDL Cholesterol 32.0 L Urine Appearance Urine Protein Urine Ketones Ur Leukocyte Esterase Urine RBC Urine WBC Urine WBC Clumps Ur Squamous Epith Cells Urine Bacteria Hyaline Casts Urine Mucus 05/25/21 05/25/21 05/25/21 11:44 16:28 19:34 RBC Hgb Hct MCV MCH MCHC RDW PT INR APTT Sodium Potassium Chloride Carbon Dioxide Glucose POC Glucose (mg/dL) 108 H 146 H Hemoglobin A1c Calcium Magnesium Troponin I Total Protein Albumin HDL Cholesterol Urine Appearance Turbid H Urine Protein 2+ H Urine Ketones Trace H Ur Leukocyte Esterase Large H Urine RBC 7 H Urine WBC >182 H Urine WBC Clumps Many H Ur Squamous Epith Cells 5 H Urine Bacteria Many H Hyaline Casts Urine Mucus Rare H 05/25/21 05/26/21 05/26/21 20:30 06:26 07:41 RBC 3.71 L Hgb 9.2 L Hct 29.9 L MCV MCH 24.8 L MCHC 30.8 L RDW 16.4 H PT INR APTT Sodium Potassium Chloride Carbon Dioxide Glucose POC Glucose (mg/dL) 118 H 121 H Hemoglobin A1c Calcium Magnesium Troponin I Total Protein Albumin HDL Cholesterol Urine Appearance Urine Protein Urine Ketones Ur Leukocyte Esterase Urine RBC Urine WBC Urine WBC Clumps Ur Squamous Epith Cells Urine Bacteria Hyaline Casts Urine Mucus 05/26/21 05/26/21 05/26/21 07:41 11:45 16:53 RBC Hgb Hct MCV MCH MCHC RDW PT INR APTT Sodium 136 L Potassium Chloride 108 H Carbon Dioxide 18 L Glucose 106 H POC Glucose (mg/dL) 113 H 187 H Hemoglobin A1c Calcium Magnesium Troponin I Total Protein Albumin HDL Cholesterol Urine Appearance Urine Protein Urine Ketones Ur Leukocyte Esterase Urine RBC Urine WBC Urine WBC Clumps Ur Squamous Epith Cells Urine Bacteria Hyaline Casts Urine Mucus 05/26/21 05/27/21 05/27/21 20:01 01:12 06:26 RBC Hgb 9.4 L Hct 30.3 L MCV 78.6 L MCH 24.5 L MCHC RDW 16.6 H PT INR APTT Sodium Potassium Chloride Carbon Dioxide Glucose POC Glucose (mg/dL) 231 H 144 H Hemoglobin A1c Calcium Magnesium Troponin I Total Protein Albumin HDL Cholesterol Urine Appearance Urine Protein Urine Ketones Ur Leukocyte Esterase Urine RBC Urine WBC Urine WBC Clumps Ur Squamous Epith Cells Urine Bacteria Hyaline Casts Urine Mucus 05/27/21 05/27/21 06:26 06:31 RBC Hgb Hct MCV MCH MCHC RDW PT INR APTT Sodium Potassium Chloride 109 H Carbon Dioxide 20 L Glucose 151 H POC Glucose (mg/dL) 163 H Hemoglobin A1c Calcium Magnesium Troponin I Total Protein Albumin HDL Cholesterol Urine Appearance Urine Protein Urine Ketones Ur Leukocyte Esterase Urine RBC Urine WBC Urine WBC Clumps Ur Squamous Epith Cells Urine Bacteria Hyaline Casts Urine Mucus - Diagnostic Findings Chest x-ray: image reviewed Assessment and Plan Assessment: 1 Symptomatic bradycardia, atrial fibrillation, status post permanent pacemaker implantation on 05/21/2021 2 Acute small petechial hemorrhage in the right medial frontal region on computed tomography scan at 11 PM on 05/26/2021 and transferred to the ICU, aspirin on Xarelto on hold 3 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 10 Former smoker Plan: The patient was seen and evaluated by Dr. Pritchard Chest x-ray, CAT scans and labs reviewed Close blood pressure monitoring, currently on Cardene drip Follow-up computed tomography scan at 10 AM this morning Neurology is following Xarelto and aspirin currently on hold We will continue to monitor and make further recommendations based on her clinical status I, the cosigning physician, performed a history & physical examination of the patient. Lungs sounds are clear. Maintaining good O2 saturations in the 90s on room air. I discussed the assessment and plan of care with my nurse practitioner, Tiffani Fuentes. I attest to the above consultation as dictated by her. Time with Patient: Greater than 30
--- NOTE | 2021-05-27 10:23 | CT ---
EXAMINATION TYPE: CT brain wo con DATE OF EXAM: 05/27/2021 HISTORY: follow up on petechial hemorrhage CT DLP: 1055.4 mGycm. Automated Exposure Control for Dose Reduction was Utilized. TECHNIQUE: CT scan of the head is performed without contrast. COMPARISON: CT brain from yesterday and older studies. FINDINGS: There is no new acute intracranial hemorrhage or midline shift identified. Less prominent punctate density right frontal region axial image 29 could reflect small focus of calcification. The re is diffuse ventricular and sulcal prominence consistent with diffuse age-related cerebral atrophy. There is low-attenuation in the periventricular white matter consistent with chronic small vessel i schemic change. Age indeterminate infarcts suspected old high right frontal region redemonstrated. A ge-indeterminate suspected more subacute infarct low left occipital lobe redemonstrated. The globes a re intact and the visualized sinuses are clear. IMPRESSION: No new acute intracranial hemorrhage or midline shift. There is mild diffuse age-relate d cerebral atrophy and moderate to advanced chronic small vessel ischemic change redemonstrated. Age -indeterminate right frontal lobe infarct favored old and age-indeterminate low left occipital infarc t favored subacute redemonstrated. No significant change from most recent studies.
[2021-05-27 11:49] LABS: Glucose,Whole Blood 170 mg/dL (75-99)
--- NOTE | 2021-05-27 13:37 | P.PN ---
Subjective Progress Note Date: 05/27/21 Patient was transferred to ICU last night. She was complaining of some numbness in the repeat computed tomography scan showed possible petechial hemorrhage. She was also noted to have uncontrolled hypertension and was started on IV nicardipine drip. Patient is awake and alert today. She does not have any complaints. She denies any headache or numbness anywhere. Objective - Vital Signs Vital signs: Vital Signs Temp 98.7 F 05/27/21 08:00 Pulse 75 05/27/21 12:15 Resp 26 H 05/27/21 12:15 BP 121/63 05/27/21 12:15 Pulse Ox 95 05/27/21 12:15 Intake & Output 05/26/21 05/27/21 05/27/21 18:59 06:59 18:59 Intake Total 180 400.000 482.084 Output Total 370 0 Balance 180 30.000 482.084 Weight 65.3 kg Intake: IV 50 0.9 @ 10 50 Intake, IV Titration 400.000 432.084 Amount Magnesium Sulfate-D5w Pmx 200 1 gm In Dextrose/Water 1 100ml.bag @ 100 mls/hr IVPB Q1H JOHN Rx#: [id number] niCARdipine 20 mg In 400.000 232.084 Sodium Chloride 0.9% 192 ml @ 5 MG/HR 50 mls/hr IV .Q4H JOHN Rx#:[id number] Oral 180 0 0 Output: Urine 370 0 Other: Voiding Method Bedpan Bedpan # Voids 2 1 0 - Exam General: The patient is awake and alert, in no distress Eye: there is normal conjunctiva bilaterally. Neck: The neck is supple, there is no JVD. Cardiovascular: Irregularly irregular. Normal S1-S2, no S3-S4, no murmurs. Respiratory: Lungs clear to auscultation bilaterally Gastrointestinal: Abdomen is soft, nontender Musculoskeletal: There is no pedal edema. Neurological:. Speech is normal. Patient is weak on the left side. She was able to move her fingers better compared to yesterday. Skin: Skin is warm and dry - Labs CBC & Chem 7: 05/27/21 06:26 05/27/21 06:26 Labs: Abnormal Lab Results - Last 24 Hours (Table) 05/26/21 05/26/21 05/27/21 Range/Units 16:53 20:01 01:12 Hgb (11.4-16.0) gm/dL Hct (34.0-46.0) % MCV (80.0-100.0) fL MCH (25.0-35.0) pg RDW (11.5-15.5) % Chloride (98-107) mmol/L Carbon Dioxide (22-30) mmol/L Glucose (74-99) mg/dL POC Glucose (mg/dL) 187 H 231 H 144 H (75-99) mg/dL 05/27/21 05/27/21 05/27/21 Range/Units 06:26 06:26 06:31 Hgb 9.4 L (11.4-16.0) gm/dL Hct 30.3 L (34.0-46.0) % MCV 78.6 L (80.0-100.0) fL MCH 24.5 L (25.0-35.0) pg RDW 16.6 H (11.5-15.5) % Chloride 109 H (98-107) mmol/L Carbon Dioxide 20 L (22-30) mmol/L Glucose 151 H (74-99) mg/dL POC Glucose (mg/dL) 163 H (75-99) mg/dL 05/27/21 Range/Units 11:47 Hgb (11.4-16.0) gm/dL Hct (34.0-46.0) % MCV (80.0-100.0) fL MCH (25.0-35.0) pg RDW (11.5-15.5) % Chloride (98-107) mmol/L Carbon Dioxide (22-30) mmol/L Glucose (74-99) mg/dL POC Glucose (mg/dL) 170 H (75-99) mg/dL Microbiology - Last 24 Hours (Table) 05/25/21 19:34 Urine Culture - Preliminary Urine,Clean Catch Gram Neg Bacilli Assessment and Plan Assessment: This is a 80-year-old female who presented to the emergency room with presyncopal episode. Patient was evaluated and admitted to the hospital for further management of her medical problems noted below. On Monday 05/21, patient was complaining of right hand numbness and a code stroke was called with neurology consultation. At that time, computed tomography scan of the brain showed no acute findings. This was thought to be less likely a stroke and patient anticoagulation with Rivaroxaban and was resumed. On 05/24, patient was complaining of worsening left-sided any plegia and a second code stroke was called on her with repeat imaging showing acute stroke. Patient was seen and evaluated by neurology. 1. Subacute infarct in the right frontal and left occipital lobe: possibly embolic. Patient was seen and evaluated by neurology. Anticoagulation with Rivaroxaban was discontinued again today with concern about possible petechial h emorrhage noted on computed tomography scan from 05/26. Continue Lipitor. Echo with bubble study showed no evidence of shunt or PFO 3. Chronic atrial fibrillation on anticoagulation with Rivaroxaban currently on home 4. Type 2 diabetes: Hold home dose of metformin and continue sliding scale insulin 5. Essential hypertension, blood pressure not well controlled. Home dose of hydralazine increased to 100 mg 3 times a day 6. Hypokalemia and Hypomagnesemia, replaced. 7. Uncomplicated UTI started on IV ceftriaxone day #2 8. CODE STATUS: Patient is full code Appreciate neurology and cardiology recommendations Lipid panel showed total cholesterol of 83 and LDL of 37. PT/OT evaluation. Wi ll check if patient qualifies for acute rehab Repeat lab work in the morning. Anticipate discharge to rehab facility when medically stable
--- NOTE | 2021-05-27 13:53 | PN ---
PROGRESS NOTE Mrs. Padilla is an 80-year-old female with history of paroxysmal atrial fibrillation who presented with a presyncope and significant bradycardia. Underwent permanent pacemaker implantation by Dr. Carias on the 6th of this months. Her initial presenting echocardiogram revealed a preserved systolic function with [id number] mitral and tricuspid regurgitation with mild pulmonic regurgitation. Patient on the 6th evening had a neurological event consistent with a CVA. She was recovering last night. She had an an episode of tingling in her fingers and discomfort in the back of her head. A CT scan of the head was performed and showed subacute infarct of the right frontal and left occipital lobe but at the same time there was an an area that is consistent with the a petechial hemorrhage in the medial right frontal lobe. The patient continues to be in atrial fibrillation with controlled ventricular response. Her blood pressure is under good control with intravenous treatment. She has no tingling in the fingers. She has mild headache. She denies any chest discomfort. Her breathing is stable. She denies any palpitation. She continues to be at this time on Lipitor 40 mg daily, hydralazine 100 mg 3 times a day, lisinopril 20 mg twice a day, and she is on IV nicardipine. Her aspirin and her Xarelto have been on hold. PHYSICAL EXAMINATION: Blood pressure running in the 120s to 130s with a heart rate in the 80s. LUNGS: Clear. HEART: Irregular, irregular, S1, S2. No S3 with a systolic murmur at the base. No diastolic murmur, no rub. ABDOMEN: Soft, nontender. No organomegaly. EXTREMITIES: No edema. LAB DATA: Lab data revealed BUN and creatinine 14 and 0.63, potassium 3.8, hemoglobin 9.4. IMPRESSION: 1. Cerebrovascular accident with a history of atrial fibrillation with new petechial hemorrhage and symptoms. 2. Paroxysmal atrial fibrillation in the past with episode of bradycardia, status post permanent pacemaker implantation. 3. History of hypertension. 4. History of hyperlipidemia. 5. History of diabetes mellitus. 6. History of calcified coronary arteries with no significant obstructive disease by cardiac catheterization in 2015. RECOMMENDATION: From the cardiac standpoint will continue to hold the anticoagulation until cleared by Neurology. The patient is scheduled to undergo repeat CT scan of the head today to follow up on the bleeding and depending on that, further recommendations will be made. Depending on her progress, further recommendation will be made. MMODL / IJN: [id number] /
[2021-05-27 16:27] LABS: Glucose,Whole Blood 170 mg/dL (75-99)
[2021-05-27 20:34] LABS: Glucose,Whole Blood 165 mg/dL (75-99)
[2021-05-27] MEDS: MELATONIN 5 MG TABLET PO SCH (20:38)
[2021-05-27] MEDS: ATORVASTATIN 40 MG TAB PO SCH (20:38)
[2021-05-28 04:32] LABS: WBC 12.3 k/uL (3.8-10.6)
[2021-05-28 04:33] LABS: Anisocytosis Slight; HCT 28.1 % (34.0-46.0); HGB 8.6 gm/dL (11.4-16.0); Hypochromasia Marked; MCH 24.4 pg (25.0-35.0); MCHC 30.7 g/dL (31.0-37.0); MCV 79.5 fL (80.0-100.0); Mean Platelet Volume 7.5; Microcytosis Slight; Platelet Count 406 k/uL (150-450); RBC 3.53 m/uL (3.80-5.40); RDW 16.7 % (11.5-15.5)
[2021-05-28 04:39] LABS: African American GFR (CKD) >90 (>60 ml/min/1.73 sqM); Anion Gap 9 mmol/L; Blood Urea Nitrogen 17 mg/dL (7-17); Carbon Dioxide 19 mmol/L (22-30); Chloride 110 mmol/L (98-107); Glucose 115 mg/dL (74-99); Magnesium 2.2 mg/dL (1.6-2.3); Non-African American GFR(CKD) 86 (>60 ml/min/1.73 sqM); Potassium 4.2 mmol/L (3.5-5.1); Sodium 138 mmol/L (137-145)
[2021-05-28] MEDS: niCARdipine 20 MG in SODIUM CHLORIDE 0.9% 192 ML IV SCH (04:42)
[2021-05-28 04:55] LABS: Basophils % (A) 0 %; Eosinophils # (A) 0.2 k/uL (0-0.7); Eosinophils % (A) 2 %; Lymphocytes # (A) 1.8 k/uL (1.0-4.8); Lymphocytes % (A) 15 %; Monocytes # (A) 1.1 k/uL (0-1.0); Monocytes % (A) 9 %; Neutrophils # (A) 8.8 k/uL (1.3-7.7); Neutrophils % (A) 72 %
[2021-05-28 06:32] LABS: Glucose,Whole Blood 115 mg/dL (75-99)
[2021-05-28] MEDS: hydrALAZINE HCL 50 MG TAB PO SCH ×3 (06:34→17:34)
[2021-05-28] MEDS: INSULIN ASPART (NovoLOG) 100 UNIT/ML VIAL SQ SCH ×4 (06:34→22:00)
[2021-05-28] MEDS: PANTOPRAZOLE 40 MG TABLET PO SCH (06:34)
[2021-05-28] MEDS: MAGNESIUM OXIDE 400 MG TAB PO SCH (08:57)
[2021-05-28] MEDS: lisinopriL 20 MG TAB PO SCH ×2 (08:57→22:00)
[2021-05-28] MEDS: carvediloL 6.25 MG TAB PO SCH ×2 (08:57→17:34)
[2021-05-28] MEDS: CHOLECALCIFEROL 25 MCG (1000 IU) TABLET PO SCH (08:57)
--- NOTE | 2021-05-28 10:44 | P.PN ---
Subjective Progress Note Date: 05/28/21 This is an 80-year-old female patient with a known history of hyperlipidemia, hypertension, diabetes mellitus, atrial fibrillation with significant bradycardia rate with syncope and she was admitted back on May 28 for the same. She subsequently undergone single chamber pacemaker insertion on 05/21/2021. On 05/22/2021 she developed sudden onset of numbness of her right lip and right hand and dysphagia. A code stroke was called and computed tomography scan revealed no acute ischemia or hemorrhage. She has been having ongoing symptoms and has had total of 5 CT scans of the brain this admission. 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 Approximate 1:00 this morning the patient had a new onset of right hand tingling and facial numbness and a mild occipital headache. Follow-up computed tomogr aphy scan of the brain revealed a small petechial hemorrhage on the right medial frontal lobe. Based on these findings she was transferred here to the intensive care unit. Neurology is recommending aggressive tight blood pressure control with a goal BP less than 140/90. She was initiated on a nicardipine drip. Currently at 10 mg per hour. She remains in atrial fibrillation. Her aspirin and Xarelto are on hold. She is seen today in consultation in the ICU. She is currently awake and alert. She is maintaining O2 saturations in the 90s on room air. No IV fluids other than the Cardene drip. She remains in atrial fibrillation with backup pacing at 60 bpm. X-ray reveals evidence of COPD. Previous granulomatous disease. No acute pulmonary process. She is due for follow-up computed tomography scan of the brain at 10 AM. The patient is seen today 05/28/2021 in follow-up in the intensive care unit. She is currently resting comfortably in bed. Awake and alert. Oriented 3. Maintaining good O2 saturations in the 90s on room air. 0.9 normal saline at KVO. Follow-up CAT scan of the brain revealed no new acute intracranial hemorrhage or midline shift. There is mild diffuse age-related cerebral atrophy and moderate to advanced chronic small vessel ischemic changes redemonstrated. Age indeterminate right frontal lobe infarct favored old and age indeterminate left occipital infarct favored subacute. No significant change compared to previous. Urine culture was positive for gram-negative bacilli. White count 12.3. Hemoglobin 8.6. Sodium 138. Potassium 4.2. Bicarb 19. Creatinine 0.62. Glucose 115. She remains on ceftriaxone. Off the nicardipine drip. Hemodynamically stable. Objective - Vital Signs Vital signs: Vital Signs Temp 98.4 F 05/28/21 08:00 Pulse 77 05/28/21 09:00 Resp 14 05/28/21 09:00 BP 136/51 05/28/21 08:00 Pulse Ox 92 L 05/28/21 09:00 Intake & Output 05/27/21 05/28/21 05/28/21 18:59 06:59 18:59 Intake Total 602.084 160 356 Output Total 200 300 Balance 402.084 160 56 Weight 66.5 kg Intake: IV 110 110 20 0.9 @ 10 110 110 20 Intake, IV Titration 432.084 Amount Magnesium Sulfate-D5w Pmx 200 1 gm In Dextrose/Water 1 100ml.bag @ 100 mls/hr IVPB Q1H JOHN Rx#: [id number] niCARdipine 20 mg In 232.084 Sodium Chloride 0.9% 192 ml @ 5 MG/HR 50 mls/hr IV .Q4H JOHN Rx#:[id number] Oral 60 50 336 Output: Urine 200 300 Other: Voiding Method Bedpan Bedpan Bedpan External Catheter External Catheter # Voids 0 1 1 # Bowel Movements 1 - Exam GENERAL EXAM: Alert, pleasant 80-year-old female patient, on room air, comfortable in no apparent distress. HEAD: Normocephalic. EYES: Normal reaction of pupils, equal size. NOSE: Clear with pink turbinates. THROAT: No erythema or exudates. NECK: No masses, no JVD. CHEST: No chest wall deformity. LUNGS: Equal air entry with no crackles, wheeze, rhonchi or dullness. CVS: S1 and S2 normal with no audible murmur, regular rhythm. ABDOMEN: No hepatosplenomegaly, normal bowel sounds, no guarding or rigidity. SPINE: No scoliosis or deformity SKIN: No rashes CENTRAL NERVOUS SYSTEM: No focal deficits, tone is normal in all 4 extremities. EXTREMITIES: There is no peripheral edema. No clubbing, no cyanosis. Peripheral pulses are intact. - Labs CBC & Chem 7: 05/28/21 03:56 05/28/21 03:56 Labs: Abnormal Lab Results - Last 24 Hours (Table) 05/27/21 05/27/21 05/27/21 Range/Units 11:47 16:26 20:33 WBC (3.8-10.6) k/uL RBC (3.80-5.40) m/uL Hgb (11.4-16.0) gm/dL Hct (34.0-46.0) % MCV (80.0-100.0) fL MCH (25.0-35.0) pg MCHC (31.0-37.0) g/dL RDW (11.5-15.5) % Neutrophils # (1.3-7.7) k/uL Monocytes # (0-1.0) k/uL Chloride (98-107) mmol/L Carbon Dioxide (22-30) mmol/L Glucose (74-99) mg/dL POC Glucose (mg/dL) 170 H 170 H 165 H (75-99) mg/dL 05/28/21 05/28/21 05/28/21 Range/Units 03:56 03:56 06:31 WBC 12.3 H (3.8-10.6) k/uL RBC 3.53 L (3.80-5.40) m/uL Hgb 8.6 L (11.4-16.0) gm/dL Hct 28.1 L (34.0-46.0) % MCV 79.5 L (80.0-100.0) fL MCH 24.4 L (25.0-35.0) pg MCHC 30.7 L (31.0-37.0) g/dL RDW 16.7 H (11.5-15.5) % Neutrophils # 8.8 H (1.3-7.7) k/uL Monocytes # 1.1 H (0-1.0) k/uL Chloride 110 H (98-107) mmol/L Carbon Dioxide 19 L (22-30) mmol/L Glucose 115 H (74-99) mg/dL POC Glucose (mg/dL) 115 H (75-99) mg/dL Microbiology - Last 24 Hours (Table) 05/25/21 19:34 Urine Culture - Preliminary Urine,Clean Catch Gram Neg Bacilli Assessment and Plan Assessment: 1 Symptomatic bradycardia, atrial fibrillation, status post permanent pacemaker implantation on 05/21/2021 2 Acute small petechial hemorrhage in the right medial frontal region on computed tomography scan at 11 PM on 05/26/2021 and transferred to the ICU, aspirin on Xarelto on hold 3 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 10 Former smoker Plan: The patient was seen and evaluated by Dr. Pritchard CAT scans and labs reviewed Neurology is following She is cleared for transfer out of the ICU We will see her as needed I, the cosigning physician, performed a history & physical examination of the patient. Lungs sounds are clear. Maintaining good O2 saturations in the 90s on room air. I discussed the assessment and plan of care with my nurse practitioner, Tiffani Fuentes. I attest to the above note as dictated by her.
--- NOTE | 2021-05-28 10:59 | PN ---
PROGRESS NOTE Mrs. Padilla is an 80-year-old female with a known history of atrial fibrillation who presented with symptomatic bradyarrhythmia requiring permanent pacemaker implantation. Subsequently she had a neurological event with evident CVA. She was transferred to the ICU because of recurrent numbness and headache, and her CT scan showed a petechial hemorrhage in the medial right frontal lobe. She is feeling well this morning. She denies chest pain. She denies any dizziness. She denies any palpitation. Her tingling has resolved. She continues to be in atrial fibrillation. Her blood pressure was mildly elevated yesterday. She continues to be off the anticoagulation per Neurology. She had a repeat CT scan performed yesterday that revealed the previous petechial hemorrhage in the right paramedian anterior frontal lobe more diffuse, with some improvement. She continues to be at this time on atorvastatin 40 mg daily, hydralazine 100 mg 3 times a day, lisinopril 20 mg twice a day. PHYSICAL EXAMINATION: Blood pressure is running in the 140s to 160 with a heart rate in the 80s. LUNGS: Clear. HEART: Irregularly irregular. S1, S2. No S3, with systolic ejection murmur. No diastolic murmur. No rub. ABDOMEN: Soft, nontender. EXTREMITIES: No edema. LAB DATA: Hemoglobin 8.6. BUN and creatinine of 17 and 0.62, potassium 4.2. IMPRESSION: 1. Atrial fibrillation, was anticoagulated, status post permanent pacemaker implantation for symptomatic bradycardia. 2. Cerebrovascular accident with a new petechial hemorrhage with possible bleeding related to the anticoagulation. 3. Hypertension. 4. Hyperlipidemia. 5. Diabetes mellitus. 6. History of coronary artery disease with no significant obstructive disease by cardiac catheterization in 2015. RECOMMENDATIONS: From the cardiac standpoint, I will add to her regimen a beta dashawn. Otherwise, continue the rest of her medical regimen. Will await input of the neurology service regarding re-initiating anticoagulation. She will increase her activity. She should be able to be transferred to the telemetry floor and, depending on her progress, further recommendations will be made. MMODL / IJN: [id number] / DEMETRICE
[2021-05-28 12:50] LABS: Glucose,Whole Blood 181 mg/dL (75-99)
--- NOTE | 2021-05-28 15:47 | CT ---
EXAMINATION TYPE: CT brain wo con DATE OF EXAM: 05/28/2021 COMPARISON: 05/27/2021, 05/24/2021 INDICATION: follow up bleed DLP: 1099.4 mGycm, Automated exposure control for dose reduction was used. CONTRAST: None CT of the brain is performed utilizing 3 mm thick sections through the posterior fossa and 3 mm thick sections through the remaining calvarium. Study is performed within 24 hours of arrival to the hosp [facility]. No abnormal hyperdensity is present to suggest an acute intracranial hemorrhage. No mass lesion is evident. There is a left occipital lobe infarct . Medial right frontal lobe subacute infarct is present. There is some mild periventricular white matter hypodensity, likely on the basis of chronic white mat ter ischemic changes Ventricles and sulci are appropriate for the patient age. Paranasal sinuses and mastoid air cells within the [id number] are clear. IMPRESSIONS: 1. Left occipital lobe infarct. 2. Probable subcortical right frontal lobe infarct. 3 atrophy with chronic appearing periventricular white matter ischemic changes
--- NOTE | 2021-05-28 16:09 | P.PN ---
Subjective Progress Note Date: 05/28/21 Patient was seen and evaluated this morning. No acute events overnight. Objective - Vital Signs Vital signs: Vital Signs Temp 98.5 F 05/28/21 14:00 Pulse 74 05/28/21 14:00 Resp 16 05/28/21 14:00 BP 134/55 05/28/21 14:00 Pulse Ox 96 05/28/21 14:00 Intake & Output 05/27/21 05/28/21 05/28/21 18:59 06:59 18:59 Intake Total 602.084 160 476 Output Total 200 300 Balance 402.084 160 176 Weight 66.5 kg Intake: IV 110 110 20 0.9 @ 10 110 110 20 Intake, IV Titration 432.084 Amount Magnesium Sulfate-D5w Pmx 200 1 gm In Dextrose/Water 1 100ml.bag @ 100 mls/hr IVPB Q1H JOHN Rx#: [id number] niCARdipine 20 mg In 232.084 Sodium Chloride 0.9% 192 ml @ 5 MG/HR 50 mls/hr IV .Q4H JOHN Rx#:[id number] Oral 60 50 456 Output: Urine 200 300 Other: Voiding Method Bedpan Bedpan Bedpan External Catheter External Catheter # Voids 0 1 1 # Bowel Movements 1 - Exam General: The patient is awake and alert, in no distress Eye: there is normal conjunctiva bilaterally. Neck: The neck is supple, there is no JVD. Cardiovascular: Irregularly irregular. Normal S1-S2, no S3-S4, no murmurs. Respiratory: Lungs clear to auscultation bilaterally Gastrointestinal: Abdomen is soft, nontender Musculoskeletal: There is no pedal edema. Neurological:. Speech is normal. Patient is weak on the left side. She was able to move her fingers better compared to yesterday. Skin: Skin is warm and dry - Labs CBC & Chem 7: 05/28/21 03:56 05/28/21 03:56 Labs: Abnormal Lab Results - Last 24 Hours (Table) 05/27/21 05/27/21 05/28/21 Range/Units 16:26 20:33 03:56 WBC 12.3 H (3.8-10.6) k/uL RBC 3.53 L (3.80-5.40) m/uL Hgb 8.6 L (11.4-16.0) gm/dL Hct 28.1 L (34.0-46.0) % MCV 79.5 L (80.0-100.0) fL MCH 24.4 L (25.0-35.0) pg MCHC 30.7 L (31.0-37.0) g/dL RDW 16.7 H (11.5-15.5) % Neutrophils # 8.8 H (1.3-7.7) k/uL Monocytes # 1.1 H (0-1.0) k/uL Chloride (98-107) mmol/L Carbon Dioxide (22-30) mmol/L Glucose (74-99) mg/dL POC Glucose (mg/dL) 170 H 165 H (75-99) mg/dL 05/28/21 05/28/21 05/28/21 Range/Units 03:56 06:31 12:48 WBC (3.8-10.6) k/uL RBC (3.80-5.40) m/uL Hgb (11.4-16.0) gm/dL Hct (34.0-46.0) % MCV (80.0-100.0) fL MCH (25.0-35.0) pg MCHC (31.0-37.0) g/dL RDW (11.5-15.5) % Neutrophils # (1.3-7.7) k/uL Monocytes # (0-1.0) k/uL Chloride 110 H (98-107) mmol/L Carbon Dioxide 19 L (22-30) mmol/L Glucose 115 H (74-99) mg/dL POC Glucose (mg/dL) 115 H 181 H (75-99) mg/dL Microbiology - Last 24 Hours (Table) 05/25/21 19:34 Urine Culture - Final Urine,Clean Catch Klebsiella pneumoniae Assessment and Plan Assessment: This is a 80-year-old female who presented to the emergency room with presyncopal episode. Patient was evaluated and admitted to the hospital for further management of her medical problems noted below. On Monday 05/21, patient was complaining of right hand numbness and a code stroke was called with neurology consultation. At that time, computed tomography scan of the brain showed no acute findings. This was thought to be less likely a stroke and patient anticoagulation with Rivaroxaban and was resumed. On 05/24, patient was c omplaining of worsening left-sided any plegia and a second code stroke was called on her with repeat imaging showing acute stroke. Patient was seen and evaluated by neurology. 1. Subacute infarct in the right frontal and left occipital lobe: possibly embolic. Patient was seen and evaluated by neurology. Anticoagulation with Rivaroxaban was discontinued again today with concern about possible petechial hemorrhage noted on computed tomography scan from 05/26. Continue Lipitor. Echo with bubble study showed no evidence of shunt or PFO 3. Chronic atrial fibrillation on anticoagulation with Rivaroxaban currently on home 4. Type 2 diabetes: Hold home dose of metformin and continue sliding scale insulin 5. Essential hypertension, blood pressure not well controlled. Home dose of hydralazine increased to 100 mg 3 times a day 6. Hypokalemia and Hypomagnesemia, replaced. 7. Uncomplicated UTI started on IV ceftriaxone day #2 8. CODE STATUS: Patient is full code Appreciate neurology and cardiology recommendations Lipid panel showed total cholesterol of 83 and LDL of 37. PT/OT evaluation. Will check if patient qualifies for acute rehab Awaiting urology clearance for discharge to [facility]
[2021-05-28 16:41] LABS: Glucose,Whole Blood 117 mg/dL (75-99)
[2021-05-28] MEDS: MELATONIN 5 MG TABLET PO SCH (22:00)
[2021-05-28] MEDS: ATORVASTATIN 40 MG TAB PO SCH (22:00)
[2021-05-28] MEDS: ASPIRIN 81 MG PO SCH (22:00)
[2021-05-28 22:17] LABS: Glucose,Whole Blood 144 mg/dL (75-99)
[2021-05-29] MEDS: ACETAMINOPHEN TAB 325 MG TAB PO PRN (04:19)
[2021-05-29 04:52] LABS: Anisocytosis Slight; Basophils % (A) 0 %; Eosinophils # (A) 0.4 k/uL (0-0.7); Eosinophils % (A) 4 %; HCT 28.7 % (34.0-46.0); Hypochromasia Marked; Lymphocytes # (A) 1.9 k/uL (1.0-4.8); Lymphocytes % (A) 19 %; MCH 24.5 pg (25.0-35.0); MCHC 31.4 g/dL (31.0-37.0); MCV 78.1 fL (80.0-100.0); Microcytosis Slight; Monocytes # (A) 0.7 k/uL (0-1.0); Monocytes % (A) 7 %; Neutrophils % (A) 68 %; Platelet Count 464 k/uL (150-450); RBC 3.68 m/uL (3.80-5.40); RDW 16.4 % (11.5-15.5); WBC 10.2 k/uL (3.8-10.6)
[2021-05-29 05:08] LABS: African American GFR (CKD) >90 (>60 ml/min/1.73 sqM); Anion Gap 10 mmol/L; Blood Urea Nitrogen 12 mg/dL (7-17); Calcium 9.2 mg/dL (8.4-10.2); Carbon Dioxide 20 mmol/L (22-30); Chloride 108 mmol/L (98-107); Glucose 112 mg/dL (74-99); Non-African American GFR(CKD) 89 (>60 ml/min/1.73 sqM); Potassium 3.6 mmol/L (3.5-5.1); Sodium 138 mmol/L (137-145)
[2021-05-29 07:00] LABS: Glucose,Whole Blood 111 mg/dL (75-99)
[2021-05-29] MEDS: PANTOPRAZOLE 40 MG TABLET PO SCH (07:04)
[2021-05-29] MEDS: INSULIN ASPART (NovoLOG) 100 UNIT/ML VIAL SQ SCH ×2 (07:04→14:52)
[2021-05-29] MEDS: carvediloL 6.25 MG TAB PO SCH (07:04)
[2021-05-29] MEDS: hydrALAZINE HCL 50 MG TAB PO SCH ×2 (07:04→14:52)
[2021-05-29] MEDS: lisinopriL 20 MG TAB PO SCH (08:25)
[2021-05-29] MEDS: MAGNESIUM OXIDE 400 MG TAB PO SCH (08:25)
[2021-05-29] MEDS: CHOLECALCIFEROL 25 MCG (1000 IU) TABLET PO SCH (08:25)
[2021-05-29] MEDS: ASPIRIN 81 MG PO SCH (08:25)
[2021-05-29] MEDS ORDERED: POTASSIUM CHLORIDE ER 20 MEQ TAB.ER PO SCH (09:00)
--- NOTE | 2021-05-29 09:08 | P.PN ---
Subjective HISTORY OF PRESENTING ILLNESS Patient is a pleasant 80-year-old female with history of atrial fibrillation, symptomatic bradycardia, status post permanent pacemaker placement. After pacemaker placement she did have a neurological event with strokelike symptoms and numbness and headache and therefore CAT scan was shown to have a petechial hemorrhage. She had a repeat CT brain performed yesterday which showed decrease in size of the hemorrhage. She was placed on aspirin yesterday. Anticoagulation has been held. She does admit to some mild right back pain related to her positioning however no chest pain or shortness breath. Blood pressures been well controlled. REVIEW OF SYSTEMS At the time of my exam: CONSTITUTIONAL: Denies fever or chills. CARDIOVASCULAR: Denies chest pain, shortness of breath, orthopnea, PND or palpitations. RESPIRATORY: Denies cough. GASTROINTESTINAL: Denies abdominal pain, diarrhea, constipation, nausea or v omiting. MUSCULOSKELETAL: Denies myalgias. NEUROLOGIC: Denies numbness, tingling or weakness. ENDOCRINE: Denies fatigue, weight change, polydipsia or polyurina. GENITOURINARY: Denies burning, hematuria or urgency with micturation. HEMATOLOGIC: Denies history of anemia or bleeding. PHYSICAL EXAMINATION Vital signs reviewed. CONSTITUTIONAL: No apparent distress. HEENT: Head is normocephalic. Pupils are equal, round. Sclerae anicteric. Mucous membranes of the mouth are moist. No JVD. No carotid bruit. CHEST EXAMINATION: Lungs are clear to auscultation. No chest wall tenderness is noted on palpation or with deep breathing. HEART EXAMINATION: Regular rate and rhythm. S1, S2 heard. No murmurs, gallops or rub. ABDOMEN: Soft, nontender. Positive bowel sounds. EXTREMITIES: 2+ peripheral pulses, no lower extremity edema and no calf tenderness. NEUROLOGIC EXAMINATION: Patient is awake, alert and oriented x3. ASSESSMENT 1. Atrial fibrillation with sick sinus syndrome status post pacemaker placement 2. CVA with mild hemorrhage, anticoagulation has been held and decrease in size by CT brain 05/28 3. Hypertension 4. Hyperlipidemia 5. Diabetes mellitus 6. History of coronary artery disease Ammann nonobstructive by previous heart catheterization 2014 PLAN Patient's blood pressure has been stable on current regimen. Aspirin was added yesterday. Continue to hold anticoagulation. CT brain appears improvement in size of hemorrhage. Appears stable for discharge home from cardiology standpoint. Objective - Vital Signs Vital signs: Vital Signs Temp 98.6 F 05/29/21 04:00 Pulse 70 05/29/21 04:00 Resp 18 05/29/21 04:00 BP 191/85 05/29/21 04:00 Pulse Ox 97 05/28/21 20:00 Intake & Output 05/28/21 05/29/21 05/29/21 18:59 06:59 18:59 Intake Total 476 Output Total 300 400 Balance 176 -400 Weight 64.2 kg Intake: IV 20 0.9 @ 10 20 Oral 456 Output: Urine 300 400 Other: Voiding Method Bedpan Bedpan External Catheter External Catheter # Voids 1 # Bowel Movements 1 1 - Labs CBC & Chem 7: 05/29/21 Unknown 05/29/21 04:09 Labs: Abnormal Lab Results - Last 24 Hours (Table) 05/28/21 05/28/21 05/28/21 Range/Units 12:48 16:38 22:16 RBC (3.80-5.40) m/uL Hgb (11.4-16.0) gm/dL Hct (34.0-46.0) % MCV (80.0-100.0) fL MCH (25.0-35.0) pg RDW (11.5-15.5) % Plt Count (150-450) k/uL Chloride (98-107) mmol/L Carbon Dioxide (22-30) mmol/L Glucose (74-99) mg/dL POC Glucose (mg/dL) 181 H 117 H 144 H (75-99) mg/dL 05/29/21 05/29/21 05/29/21 Range/Units 04:09 06:58 Unknown RBC 3.68 L (3.80-5.40) m/uL Hgb 9.0 L (11.4-16.0) gm/dL Hct 28.7 L (34.0-46.0) % MCV 78.1 L (80.0-100.0) fL MCH 24.5 L (25.0-35.0) pg RDW 16.4 H (11.5-15.5) % Plt Count 464 H (150-450) k/uL Chloride 108 H (98-107) mmol/L Carbon Dioxide 20 L (22-30) mmol/L Glucose 112 H (74-99) mg/dL POC Glucose (mg/dL) 111 H (75-99) mg/dL Microbiology - Last 24 Hours (Table) 05/25/21 19:34 Urine Culture - Final Urine,Clean Catch Klebsiella pneumoniae
[2021-05-29 11:04] VITALS: BP 111/78; PULSE 68; RESP 15; TEMP 97.6
[2021-05-29 11:34] LABS: Glucose,Whole Blood 169 mg/dL (75-99)
--- NOTE | 2021-05-29 12:06 | P.DS ---
Providers Date of admission: 05/19/21 13:33 Expected date of discharge: 05/29/21 Attending physician: Dayanara Biswas Consults: 05/18/21 16:09 Consult Physician Urgent Consulting Provider: [facility] Consult Reason/Comments: Bradycardia, near syncope Do you want consulting provider notified?: Yes 05/21/21 23:37 Consult Physician Urgent Consulting Provider: Octavio Pritchard Consult Reason/Comments: Code stroke Do you want consulting provider notified?: Yes, Notify in am 05/26/21 11:49 Consult Physician Routine Consulting Provider: Tacho Horvath Consult Reason/Comments: Evaluate for IPR Do you want consulting provider notified?: Yes 05/27/21 00:51 Consult Physician Routine Consulting Provider: Scooby Pritchard Consult Reason/Comments: acute petechial hemorrhage medial R frontal lobe Do you want consulting provider notified?: Already Contacted Primary care physician: [facility] Hospital Course: This is a 80-year-old female who presented to the emergency room with presyncopal episode. Patient was evaluated and admitted to the hospital for further management of her medical problems noted below. On Monday 05/21, patient was complaining of right hand numbness and a code stroke was called with neurology consultation. At that time, computed tomography scan of the brain showed no acute findings. This was thought to be less likely a stroke and pa tient anticoagulation with Rivaroxaban and was resumed. On 05/24, patient was complaining of worsening left-sided any plegia and a second code stroke was called on her with repeat imaging showing acute stroke. Patient was seen and evaluated by neurology. 1. Subacute infarct in the right frontal and left occipital lobe: possibly embolic. Patient was seen and evaluated by neurology. Anticoagulation with Rivaroxaban was discontinued again today with concern about possible petechial hemorrhage noted on computed tomography scan from 05/26. Continue Lipitor. Echo with bubble study showed no evidence of shunt or PFO 3. Chronic atrial fibrillation on anticoagulation with Rivaroxaban currently on hold 4. Type 2 diabetes: Resume home dose of metformin 5. Essential hypertension, blood pressure not well controlled. Home regimen adjusted with better control of blood pressure 6. Hypokalemia and Hypomagnesemia, replaced. 7. Uncomplicated UTI started on IV ceftriaxone day #3 8. CODE STATUS: Patient is full code Appreciate neurology and cardiology recommendations Lipid panel showed total cholesterol of 83 and LDL of 37. PT/OT evaluation. Will check if patient qualifies for acute rehab Patient was seen and evaluated by me on the day of discharge. Plan of care discussed with neurology. Continue aspirin 81 milligrams daily. Continue to hold Rivaroxaban for now. Follow-up computed tomography scan of the head without contrast in one week. Follow-up with neurology. Computed tomography scan stable May resume anticoagulation with Rivaroxaban next week. We will finish antibiotic course with Keflex for 3 more days. Patient will be discharged in a stable condition to [facility] for subacute rehab Patient Condition at Discharge: Fair Plan - Discharge Summary Discharge Rx Participant: No New Discharge Prescriptions: New Aspirin 81 mg PO DAILY chew carvediloL [Coreg] 6.25 mg PO BID-W/MEALS tab Acetaminophen Tab [Tylenol] 650 mg PO Q6HR PRN tab PRN Reason: Mild Pain lisinopriL [Zestril] 20 mg PO BID tab Cephalexin [Keflex] 500 mg PO Q6HR 3 Days #12 cap hydrALAZINE HCL [Apresoline] 100 mg PO AC-TID tab Magnesium Oxide [Mag-Ox] 400 mg PO DAILY tab Continue metFORMIN HCL [Glucophage] 500 mg PO BID Vits A,C,E/Lutein/Minerals [Ocuvite with Lutein Tablet] 1 tab PO DAILY Cinnamon Bark [Cinnamon] 500 mg PO DAILY Atorvastatin [Lipitor] 40 mg PO HS Omeprazole 20 mg PO HS Cholecalciferol [Vitamin D3 (25 Mcg = 1000 Iu)] 25 mcg PO DAILY Discontinued Aspirin 81 mg PO DAILY #1 chewable lisinopriL [Zestril] 20 mg PO HS Rivaroxaban [Xarelto] 20 mg PO AC-SUPPER Metoprolol Tartrate [Lopressor] 50 mg PO BID hydrALAZINE HCL [Apresoline] 50 mg PO AC-TID #0 Nitrofurantoin Monohyd/M-Cryst [Macrobid] 100 mg PO Q12HR Discharge Medication List metFORMIN HCL [Glucophage] 500 mg PO BID 07/02/15 [History] Cinnamon Bark [Cinnamon] 500 mg PO DAILY 07/15/15 [History] Vits A,C,E/Lutein/Minerals [Ocuvite with Lutein Tablet] 1 tab PO DAILY 07/15/15 [History] Atorvastatin [Lipitor] 40 mg PO HS 06/21/17 [History] Omeprazole 20 mg PO HS 09/10/19 [History] Cholecalciferol [Vitamin D3 (25 Mcg = 1000 Iu)] 25 mcg PO DAILY 02/18/21 [History] Acetaminophen Tab [Tylenol] 650 mg PO Q6HR PRN tab 05/29/21 [Rx] Aspirin 81 mg PO DAILY chew 05/29/21 [Rx] Cephalexin [Keflex] 500 mg PO Q6HR 3 Days #12 cap 05/29/21 [Rx] Magnesium Oxide [Mag-Ox] 400 mg PO DAILY tab 05/29/21 [Rx] carvediloL [Coreg] 6.25 mg PO BID-W/MEALS tab 05/29/21 [Rx] hydrALAZINE HCL [Apresoline] 100 mg PO AC-TID tab 05/29/21 [Rx] lisinopriL [Zestril] 20 mg PO BID tab 05/29/21 [Rx] Follow up Appointment(s)/Referral(s): [facility] On [NON-STAFF] - Aging,[place] On [NON-STAFF] - Gen Palma MD [Primary Care Provider] - 1-2 days Kevin Carias MD [STAFF PHYSICIAN] - 1 Week Activity/Diet/Wound Care/Special Instructions: Activity Restrictions or Additional Instructions: Instructions following a heart rhythm device implant. 1. Keep dressing dry for 5 days. He may cover the area with surrounding her clean wrap, prior to wrist shower 2. The dressing can be removed in about 5 days in the Device Clinic at [facility]. Absorbable sutures were used to close the wound. 3. Avoid raising the left arm above the shoulder level. 4 week resection. 4. Avoid arm movements such as back scratching, rubbing the head or pulling on a cord. 4 week for striction. 5. Gentle range of motion movements of the shoulder, closest institution should be performed to avoid a frozen shoulder. (Pendulum exercises of the shoulder) 6. The opposite arm may be used freely. 7. Avoid driving for 7 days. 8. Avoid activities such as golfing, swimming, weed whacking, lifting more than 10 pounds of weight, bowling, and weight training/lifting (6 week restriction) 9. Being close to home induction cooktops and activities such as wood chopping with axe, pull ups, power lifting will always be a problem 10. Arm sling is only remind her not to raise arm above the head. You do not need to keep the arm completely immobilized. You're free to move the arm and use it in normal activities. In case of any problems, [facility] call [facility] at [phone] Attention: Device Clinic Device clinic follow up in 5 days Follw up with primary shank stitcher in 2-3 months Discharge Disposition: TRANSFER TO SNF/ECF
--- NOTE | 2021-05-29 23:46 | P.PN ---
Subjective Progress Note Date: 05/27/21 05/27/2021: Patient's grandson was present today. Patient is doing better. Nurses noted some occasional tremor of the right arm, no jerking. No altered mentation. Patient complaining of headache back of the head, 5/10. At that time she was sitting straight up in the bed. The nurses laid her back 30 and patient went to sleep. When she woke up, the headache was gone. Also some buzzing in the ear. Denies any focal symptoms otherwise. 05/26/2021: Patient was seen for a follow-up. Family members were not present. Patient denies headache. Denies any numbness or tingling. Patient is laying c omfortably in the bed. Denies any new focal symptoms. 05/25/2021: Patient's son was present today. Patient is laying comfortably in the bed. Patient states she is feeling better. No new neurological symptoms. Denies headache. 05/24/2021: Patient was seen by Dr. Tiffani Stack over the weekend. Please refer to her notes for details. I saw the patient this morning for the first time. Patient came to the hospital on 05/18/2021 on Monday for recurrent near syncopal spells. Patient was found to have irregular heart rhythm, with bradycardia. Cardiology saw the patient and recommended placement of pacemaker, which was done on 05/21/2021. Patient's Xarelto was on hold prior to the procedure, in preparation for the pacemaker. Apparently on Monday night, at 11 PM, patient has a stroke code activated, because she developed sudden onset of numbness of her right side of the lip and hand. She also reported difficulty with word finding. A code stroke was called and the patient was taken for a stat CT scan of the brain. Imaging was negative for acute ischemia and hemorrhage. Patient was seen by Dr. Stack on 05/22/2021, who recommended to resume anticoagulation when OK with cardiology. MRI of the brain was recommended but patient cannot have it because of pacemaker. Subsequently on Monday, yesterday, patient was noted to be confused. Patient also reportedly unable to stand. UTI was considered as well. Patient was resumed on Xarelto and given a dose last night, on Monday at 3:10 PM. This morning patient was noted to have symptoms of left-sided deficits and feeling like sand in her left eye. Examination has revealed left hemiplegia. Patient's NIH stroke scale was reported as 12. Stroke code was again activated. Patient was evaluated by stroke neurologist Dr. Mcguire, , computed tomography scan of head and CTA of head and neck were recommended. CT head showed acute infarct posterior left parietal lobe extending into the inferior left occipital lobe. The degree of hypodensity suggests greater than 6 hours in duration. No midline shift or hemorrhagic transformation. This probably subacute. No acute stroke seen in the right hemispheric region. CTA of head revealed severe stenosis/subtotal occlusion posterior P2 segment left [employer] corresponds to vascular territory for the patient's acute left-sided infarct. CTA of the neck showed: The precarinal lymph node in the mediastinum is increase in size at 1.7 cm versus 1.2 cm on 01/15/2021. This may be reactive given the small right effusion and septal lines in the upper lungs. Correlate for mild CHF. Appropriate oncologic follow-up is indicated. Atherosclerotic change at both bifurcations resulting in a moderate, approximately 60% proximal left ICA stenosis and mild 40% proximal right ICA stenosis. Incidental dominant left vertebral artery. Objective - Vital Signs Vital signs: Vital Signs Temp 96.6 F L 05/27/21 16:00 Pulse 86 05/27/21 18:00 Resp 19 05/27/21 18:00 BP 106/49 05/27/21 18:00 Pulse Ox 95 05/27/21 18:00 Intake & Output 05/26/21 05/27/21 05/27/21 18:59 06:59 18:59 Intake Total 180 400.000 602.084 Output Total 370 200 Balance 180 30.000 402.084 Weight 65.3 kg Intake: IV 110 0.9 @ 10 110 Intake, IV Titration 400.000 432.084 Amount Magnesium Sulfate-D5w Pmx 200 1 gm In Dextrose/Water 1 100ml.bag @ 100 mls/hr IVPB Q1H JOHN Rx#: [id number] niCARdipine 20 mg In 400.000 232.084 Sodium Chloride 0.9% 192 ml @ 5 MG/HR 50 mls/hr IV .Q4H JOHN Rx#:[id number] Oral 180 0 60 Output: Urine 370 200 Other: Voiding Method Bedpan Bedpan Bedpan # Voids 2 1 0 - Exam Patient's neurological examination his most improved. Patient is alert and awake, normal mentation. Her speech and language functions are normal. No dysarthria. On cranial nerve examination pupils are round and reacting, visual callejas reveals no definitive visual field deficit. Patient will not keep gaze in the Center and would immediately look to (moves gaze) to the right hand on any movement. No facial asymmetry. Tongue protrudes to the midline. Palatal elevation is normal. Hearing appears normal for conversation. Her shoulder shrug normal. On muscle strength testing patient is able to lift her left arm off the bed about 30, and able to hold it 10 off the bed. Patient able to move her left hand better. Her left leg is still flaccid. Sensory is equal on both sides, although she slightly neglects right leg on double simultaneous stimulation. No sensory neglect in the upper limbs. No ataxia for [id number] on the right, cannot check on the left. Gait cannot be checked. Reflexes are 1+, and plantar is downgoing on the right, up on the left. - Labs CBC & Chem 7: 05/29/21 Unknown 05/29/21 04:09 Labs: Abnormal Lab Results - Last 24 Hours (Table) 05/26/21 05/27/21 05/27/21 Range/Units 20:01 01:12 06:26 Hgb 9.4 L (11.4-16.0) gm/dL Hct 30.3 L (34.0-46.0) % MCV 78.6 L (80.0-100.0) fL MCH 24.5 L (25.0-35.0) pg RDW 16.6 H (11.5-15.5) % Chloride (98-107) mmol/L Carbon Dioxide (22-30) mmol/L Glucose (74-99) mg/dL POC Glucose (mg/dL) 231 H 144 H (75-99) mg/dL 05/27/21 05/27/21 05/27/21 Range/Units 06:26 06:31 11:47 Hgb (11.4-16.0) gm/dL Hct (34.0-46.0) % MCV (80.0-100.0) fL MCH (25.0-35.0) pg RDW (11.5-15.5) % Chloride 109 H (98-107) mmol/L Carbon Dioxide 20 L (22-30) mmol/L Glucose 151 H (74-99) mg/dL POC Glucose (mg/dL) 163 H 170 H (75-99) mg/dL 05/27/21 Range/Units 16:26 Hgb (11.4-16.0) gm/dL Hct (34.0-46.0) % MCV (80.0-100.0) fL MCH (25.0-35.0) pg RDW (11.5-15.5) % Chloride (98-107) mmol/L Carbon Dioxide (22-30) mmol/L Glucose (74-99) mg/dL POC Glucose (mg/dL) 170 H (75-99) mg/dL Microbiology - Last 24 Hours (Table) 05/25/21 19:34 Urine Culture - Preliminary Urine,Clean Catch Gram Neg Bacilli Assessment and Plan Assessment: * Acute recurrent embolic strokes, 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 Patient had an subacute CVA involving the left parietal lobe extending into the inferior left occipital lobe that occurred on 05/21/2021. This probably has presented with a right homonymous hemianopia, mild aphasia and alexia, all of them seem to have improved now. Patient's acute left hemiplegia is likely due to CVA involving the right JOHNATHON territory on 06/03/2021. * Paroxysmal Atrial fibrillation on long-term anticoagulation. Currently on hold due to mild small petechial hemorrhage involving the right paramedian anterior frontal lobe. * Bilateral ICA stenosis 60% left ICA and 40% right ICA. * Severe stenosis/subtotal occlusion posterior P2 segment left [employer], likely embolic. * Status post pacemaker placement 05/21/2021 * Hypertension * Hyperlipidemia * Diabetes * Positive family history of strokes in her mother. Plan: * Patient's neurological examination is improved. Patient denies headache. * Patient's computed tomography scan of head from this morning showed the previous petechial hemorrhage right paramedian anterior frontal lobe has become less distinct and slightly more diffused. This suggests improvement and partial involution of the previous petechial bleed. * Continue to hold Xarelto 20 mg and aspirin 81 mg at this time. Repeat computed tomography scan of the head in the morning. * Resume DVT prophylaxis with heparin 5000 units subcu every 12 hours. * Hemoglobin A1c 6.3 on 10/21/2020. * Lipid panel with cholesterol 83, LDL 37.6, HDL 32 and triglycerides 67. Continue Lipitor 40 mg. TSH normal at 2.2. * CTA of the neck showed enlarged precarinal lymph node. Will defer IM to address this issue. * Discussed with patient's grandson and the nursing staff in detail.
--- NOTE | 2021-05-30 00:10 | P.PN ---
Subjective Progress Note Date: 05/28/21 05/28/2021: Patient is laying comfortably in the bed. States feels "not too bad". Offers no complaints. Family members not present. Denies headache. 05/27/2021: Patient's grandson was present today. Patient is doing better. Nurses noted some occasional tremor of the right arm, no jerking. No altered mentation. Patient complaining of headache back of the head, 5/10. At that time she was sitting straight up in the bed. The nurses laid her back 30 and patient went to sleep. When she woke up, the headache was gone. Also some buzzing in the ear. Denies any focal symptoms otherwise. 05/26/2021: Patient was seen for a follow-up. Family members were not present. Patient denies headache. Denies any numbness or tingling. Patient is laying comfortably in the bed. Denies any new focal symptoms. 05/25/2021: Patient's son was present today. Patient is laying comfortably in the bed. Patient states she is feeling better. No new neurological symptoms. Denies headache. 05/24/2021: Patient was seen by Dr. Tiffani Stack over the weekend. Please refer to her notes for details. I saw the patient this morning for the first time. Patient came to the hospital on 05/18/2021 on Monday for recurrent near syncopal spells. Patient was found to have irregular heart rhythm, with bradycardia. Cardiology saw the patient and recommended placement of pacemaker, which was done on 05/21/2021. Patient's Xarelto was on hold prior to the procedure, in preparation for the pacemaker. Apparently on Monday night, at 11 PM, patient has a stroke code activated, because she developed sudden onset of numbness of her right side of the lip and hand. She also reported difficulty with word finding. A code stroke was called and the patient was taken for a stat CT scan of the brain. Imaging was negative for acute ischemia and hemorrhage. Patient was seen by Dr. Stack on 05/22/2021, who recommended to resume anticoagulation when OK with cardiology. MRI of the brain was recommended but patient cannot have it because of pacemaker. Subsequently on Monday, yesterday, patient was noted to be confused. Patient also reportedly unable to stand. UTI was considered as well. Patient was resumed on Xarelto and given a dose last night, on Monday at 3:10 PM. This morning patient was noted to have symptoms of left-sided deficits and feeling like sand in her left eye. Examination has revealed left hemiplegia. Patient's NIH stroke scale was reported as 12. Stroke code was again activated. Patient was evaluated by stroke neurologist Dr. Mcguire, , computed tomography scan of head and CTA of head and neck were recommended. CT head showed acute infarct posterior left parietal lobe extending into the inferior left occipital lobe. The degree of hypodensity suggests greater than 6 hours in duration. No midline shift or hemorrhagic transformation. This probably subacute. No acute stroke seen in the right hemispheric region. CTA of head revealed severe stenosis/subtotal occlusion posterior P2 segment left ASSOCIATE PROF[employer]OR [employer] corresponds to vascular territory for the patient's acute left-sided infarct. CTA of the neck showed: The precarinal lymph node in the mediastinum is increase in size at 1.7 cm versus 1.2 cm on 01/15/2021. This may be reactive given the small right effusion and septal lines in the upper lungs. Correlate for mild CHF. Appropriate oncologic follow-up is indicated. Atherosclerotic change at both bifurcations resulting in a moderate, approximately 60% proximal left ICA stenosis and mild 40% proximal right ICA stenosis. Incidental dominant left vertebral artery. Objective - Vital Signs Vital signs: Vital Signs Temp 98.5 F 05/28/21 14:00 Pulse 74 05/28/21 14:00 Resp 16 05/28/21 14:00 BP 134/55 05/28/21 14:00 Pulse Ox 96 05/28/21 14:00 Intake & Output 05/28/21 05/28/21 05/29/21 06:59 18:59 06:59 Intake Total 160 476 Output Total 300 Balance 160 176 Weight 66.5 kg Intake: IV 110 20 0.9 @ 10 110 20 Oral 50 456 Output: Urine 300 Other: Voiding Method Bedpan Bedpan External Catheter External Catheter # Voids 1 1 # Bowel Movements 1 1 - Exam Patient's mental status, speech and language functions are normal. Detail examination deferred. - Labs CBC & Chem 7: 05/29/21 Unknown 05/29/21 04:09 Labs: Abnormal Lab Results - Last 24 Hours (Table) 0805/28/21 05/28/21 Range/Units 03:56 03:56 06:31 WBC 12.3 H (3.8-10.6) k/uL RBC 3.53 L (3.80-5.40) m/uL Hgb 8.6 L (11.4-16.0) gm/dL Hct 28.1 L (34.0-46.0) % MCV 79.5 L (80.0-100.0) fL MCH 24.4 L (25.0-35.0) pg MCHC 30.7 L (31.0-37.0) g/dL RDW 16.7 H (11.5-15.5) % Neutrophils # 8.8 H (1.3-7.7) k/uL Monocytes # 1.1 H (0-1.0) k/uL Chloride 110 H (98-107) mmol/L Carbon Dioxide 19 L (22-30) mmol/L Glucose 115 H (74-99) mg/dL POC Glucose (mg/dL) 115 H (75-99) mg/dL 05/28/21 05/28/21 05/28/21 Range/Units 12:48 16:38 22:16 WBC (3.8-10.6) k/uL RBC (3.80-5.40) m/uL Hgb (11.4-16.0) gm/dL Hct (34.0-46.0) % MCV (80.0-100.0) fL MCH (25.0-35.0) pg MCHC (31.0-37.0) g/dL RDW (11.5-15.5) % Neutrophils # (1.3-7.7) k/uL Monocytes # (0-1.0) k/uL Chloride (98-107) mmol/L Carbon Dioxide (22-30) mmol/L Glucose (74-99) mg/dL POC Glucose (mg/dL) 181 H 117 H 144 H (75-99) mg/dL Microbiology - Last 24 Hours (Table) 05/25/21 19:34 Urine Culture - Final Urine,Clean Catch Klebsiella pneumoniae Assessment and Plan Assessment: * Acute recurrent embolic strokes, 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 Patient had an subacute CVA involving the left parietal lobe extending into the inferior left occipital lobe that occurred on 05/21/2021. This probably has presented with a right homonymous hemianopia, mild aphasia and alexia, all of them seem to have improved now. Patient's acute left hemiplegia is likely due to CVA involving the right JOHNATHON territory on 05/24/2021. * Paroxysmal Atrial fibrillation on long-term anticoagulation. Currently on hold due to mild small petechial hemorrhage involving the right paramedian anterior frontal lobe. * Bilateral ICA stenosis 60% left ICA and 40% right ICA. * Severe stenosis/subtotal occlusion posterior P2 segment left [employer], likely embolic. * Status post pacemaker placement 05/21/2021 * Hypertension * Hyperlipidemia * Diabetes * Positive family history of strokes in her mother. Plan: * Patient's neurological examination is improved. * Repeat computed tomography scan of the head from today at 3:50 PM showed tiny hypodensity compatible with minimal hemorrhage remains along the medial aspect of the right frontal lobe, adjacent to the hypodense area within the right frontal lobe. This currently measures 0.4 x 0.2 cm. This is smaller than the compared dated 05/26/2021 which has a measurement of 0.8 x 0.2 cm. Patient denies headache. Start aspirin 81 mg daily from today, as the hemorrhage is normal minimal, and patient is high risk for recurrent strokes given atrial fibrillation and vascular stenosis. * Continue to hold Xarelto 20 mg. * Continue DVT prophylaxis with heparin 5000 units subcu every 12 hours. * Hemoglobin A1c 6.3 on 10/21/2020. * Lipid panel with cholesterol 83, LDL 37.6, HDL 32 and triglycerides 67. Continue Lipitor 40 mg. TSH normal at 2.2. * CTA of the neck showed enlarged precarinal lymph node. Will defer IM to address this issue.
--- NOTE | 2021-05-30 13:10 | P.PN ---
Subjective Progress Note Date: 05/29/21 05/29/2021: This is a tele-neurology follow-up performed today on 05/29/2021. Patient is feeling better. Patient states that she has a little headache in the right occipital region. No numbness tingling, no nausea vomiting. 05/28/2021: Patient is laying comfortably in the bed. States feels "not too bad". Offers no complaints. Family members not present. Denies headache. 05/27/2021: Patient's grandson was present today. Patient is doing better. Nurses noted some occasional tremor of the right arm, no jerking. No altered mentation. Patient complaining of headache back of the head, 02/22. At that time she was sitting straight up in the bed. The nurses laid her back 30 and patient went to sleep. When she woke up, the headache was gone. Also some buzzing in the ear. Denies any focal symptoms otherwise. 05/26/2021: Patient was seen for a follow-up. Family members were not present. Patient denies headache. Denies any numbness or tingling. Patient is laying comfortably in the bed. Denies any new focal symptoms. 05/25/2021: Patient's son was present today. Patient is laying comfortably in the bed. Patient states she is feeling better. No new neurological symptoms. Denies headache. 05/24/2021: Patient was seen by Dr. Tiffani Stack over the weekend. Please refer to her notes for details. I saw the patient this morning for the first time. Patient came to the hospital on 05/18/2021 on Monday for recurrent near syncopal spells. Patient was found to have irregular heart rhythm, with bradycardia. Cardiology saw the patient and recommended placement of pacemaker, which was done on 05/21/2021. Patient's Xarelto was on hold prior to the procedure, in preparation for the pacemaker. Apparently on Monday night, at 11 PM, patient has a stroke code activated, because she developed sudden onset of numbness of her right side of the lip and hand. She also reported difficulty with word finding. A code stroke was called and the patient was taken for a st at CT scan of the brain. Imaging was negative for acute ischemia and hemorrhage. Patient was seen by Dr. Stack on 05/22/2021, who recommended to resume anticoagulation when OK with cardiology. MRI of the brain was recommended but patient cannot have it because of pacemaker. Subsequently on Monday, yesterday, patient was noted to be confused. Patient also reportedly unable to stand. UTI was considered as well. Patient was resumed on Xarelto and given a dose last night, on Monday at 3:10 PM. This morning patient was noted to have symptoms of left-sided deficits and feeling like sand in her left eye. Examination has revealed left hemiplegia. Patient's NIH stroke scale was reported as 12. Stroke code was again activated. Patient was evaluated by stroke neurologist Dr. Mcguire, , computed tomography scan of head and CTA of head and neck were recommended. CT head showed acute infarct posterior left parietal lobe extending into the inferior left occipital lobe. The degree of hypodensity suggests greater than 6 hours in duration. No midline shift or hemorrhagic transformation. This probably subacute. No acute stroke seen in the right hemispheric region. CTA of head revealed severe stenosis/subtotal occlusion posterior P2 segment left MANAGER [employer] IT corresponds to vascular territory for the patient's acute left-sided infarct. CTA of the neck showed: The precarinal lymph node in the mediastinum is increase in size at 1.7 cm versus 1.2 cm on 01/15/2021. This may be reactive given the small right effusion and septal lines in the upper lungs. Correlate for mild CHF. Appropriate oncologic follow-up is indicated. Atherosclerotic change at both bifurcations resulting in a moderate, approximately 60% proximal left ICA stenosis and mild 40% proximal right ICA stenosis. Incidental dominant left vertebral artery. Objective - Vital Signs Vital signs: Vital Signs Temp 97.6 F 05/29/21 08:00 Pulse 68 05/29/21 08:00 Resp 15 05/29/21 08:00 BP 111/78 05/29/21 08:00 Pulse Ox 94 L 05/29/21 08:00 Intake & Output 05/29/21 05/29/21 05/30/21 06:59 18:59 06:59 Output Total 400 Balance -400 Weight 64.2 kg Output: Urine 400 Other: Voiding Method Bedpan Bedpan External Catheter External Catheter # Bowel Movements 1 - Exam Patient is alert and awake, normal mentation. Her speech and language functions are normal. No dysarthria. On cranial nerve examination pupils are round and reacting, visual callejas reveals no definitive visual field deficit. No facial asymmetry. Tongue protrudes to the midline. Palatal elevation is normal. Hearing appears normal for conversation. Her shoulder shrug normal. On muscle strength testing, patient's strength is much improved in the left arm. Patient has left pronator drift, does not hit the bed. Patient's (R/L) deltoid 5/5, biceps 5/3, triceps 5/3, plug making operator 5/5. Patient's left leg is completely flaccid. She does move her right leg fairly normally. Sensory is equal on both sides, no neglect on double simultaneous stimulation. No ataxia for [id number] on the right, mildly ataxic on the left. Gait cannot be checked. Reflexes are 1+, and plantar is downgoing on the right, up on the left. - Labs CBC & Chem 7: 05/29/21 Unknown 05/29/21 04:09 Labs: Abnormal Lab Results - Last 24 Hours (Table) 05/29/21 05/29/21 05/29/21 Range/Units 04:09 06:58 11:33 RBC (3.80-5.40) m/uL Hgb (11.4-16.0) gm/dL Hct (34.0-46.0) % MCV (80.0-100.0) fL MCH (25.0-35.0) pg RDW (11.5-15.5) % Plt Count (150-450) k/uL Chloride 108 H (98-107) mmol/L Carbon Dioxide 20 L (22-30) mmol/L Glucose 112 H (74-99) mg/dL POC Glucose (mg/dL) 111 H 169 H (75-99) mg/dL 05/29/21 Range/Units Unknown RBC 3.68 L (3.80-5.40) m/uL Hgb 9.0 L (11.4-16.0) gm/dL Hct 28.7 L (34.0-46.0) % MCV 78.1 L (80.0-100.0) fL MCH 24.5 L (25.0-35.0) pg RDW 16.4 H (11.5-15.5) % Plt Count 464 H (150-450) k/uL Chloride (98-107) mmol/L Carbon Dioxide (22-30) mmol/L Glucose (74-99) mg/dL POC Glucose (mg/dL) (75-99) mg/dL Assessment and Plan Assessment: * Acute recurrent embolic strokes, 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 Patient had an subacute CVA involving the left parietal lobe extending into the inferior left occipital lobe that occurred on 05/21/2021. This probably has presented with a right homonymous hemianopia, mild aphasia and alexia, all of them seem to have improved now. Patient's acute left hemiplegia is likely due to CVA involving the right JOHNATHON territory on 05/24/2021. Current NIH s troke scale is 6 at the time of discharge. * Paroxysmal Atrial fibrillation on long-term anticoagulation. Currently on hold due to mild small petechial hemorrhage involving the right paramedian anterior frontal lobe. * Bilateral ICA stenosis 60% left ICA and 40% right ICA. 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 * Status post pacemaker placement 05/21/2021 * Hypertension * Hyperlipidemia * Diabetes * Positive family history of strokes in her mother. Plan: * Patient's neurological examination has further improved. * Repeat computed tomography scan of the head from 05/28/2021 at 3:50 PM showed tiny hypodensity compatible with minimal hemorrhage remains along the medial aspect of the right frontal lobe, adjacent to the hypodense area within the right frontal lobe. This currently measures 0.4 x 0.2 cm. This is smaller than the compared dated 05/26/2021 which has a measurement of 0.8 x 0.2 cm. Patient denies headache. Continue aspirin 81 mg daily. * Continue to hold Xarelto 20 mg for one week. Repeat computed tomography scan of the head without contrast and patient to follow up with a neurologist for clearance for anticoagulation. * Continue DVT prophylaxis with heparin 5000 units subcu every 12 hours. * Hemoglobin A1c 6.3 on 10/21/2020. * Lipid panel with cholesterol 83, LDL 37.6, HDL 32 and triglycerides 67. Continue Lipitor 40 mg. TSH normal at 2.2. * CTA of the neck showed enlarged precarinal lymph node. Will defer IM to address this issue. * Patient almost ready for transfer to subacute rehab.
== END 2021-05-29 14:00 | DRG 242 ==
LOC: EC 14:09 → 6NMEDSUR 16:10 → 3SCARD 21:55 → 6NMEDSUR 05-19 07:57 → 3SCARD 05-19 08:56 → OBSVTOIN 05-19 13:33 → 3SCARD 05-19 15:32 → 2SICU 05-27 01:08
PROVIDERS: ADMIT Internal Medicine; ATTEND Internal Medicine
PROC: 0JH605Z Insertion of Pacemaker, Single Chamber Rate Responsive into Chest Subcutaneous Tissue and Fascia, Open Approach (ICD-10-PCS; principal; 2021-05-21 08:00)
PROC: 02HK3JZ Insertion of Pacemaker Lead into Right Ventricle, Percutaneous Approach (ICD-10-PCS; principal; 2021-05-21 08:00)
DX: I49.5 Sick sinus syndrome (principal); I63.421 Cerebral infarction due to embolism of right anterior cerebral artery; G81.94 Hemiplegia, unspecified affecting left nondominant side; R47.01 Aphasia; I48.19 Other persistent atrial fibrillation; N39.0 Urinary tract infection, site not specified; I27.20 Pulmonary hypertension, unspecified; I11.0 Hypertensive heart disease with heart failure; I50.9 Heart failure, unspecified; H53.461 Homonymous bilateral field defects, right side; D71 Functional disorders of polymorphonuclear neutrophils; E11.9 Type 2 diabetes mellitus without complications; E78.5 Hyperlipidemia, unspecified; Z20.822 Contact with and (suspected) exposure to COVID-19; R29.712 NIHSS score 12; R13.10 Dysphagia, unspecified; I65.23 Occlusion and stenosis of bilateral carotid arteries; E87.6 Hypokalemia; I25.10 Atherosclerotic heart disease of native coronary artery without angina pectoris; E83.42 Hypomagnesemia; I08.3 Combined rheumatic disorders of mitral, aortic and tricuspid valves; I25.2 Old myocardial infarction; K21.9 Gastro-esophageal reflux disease without esophagitis; M81.0 Age-related osteoporosis without current pathological fracture; K44.9 Diaphragmatic hernia without obstruction or gangrene; K57.90 Diverticulosis of intestine, part unspecified, without perforation or abscess without bleeding; F41.9 Anxiety disorder, unspecified; M19.90 Unspecified osteoarthritis, unspecified site; Z79.82 Long term (current) use of aspirin; Z79.01 Long term (current) use of anticoagulants; Z79.84 Long term (current) use of oral hypoglycemic drugs; Z79.899 Other long term (current) drug therapy; Z60.2 Problems related to living alone; Z87.440 Personal history of urinary (tract) infections; Z85.41 Personal history of malignant neoplasm of cervix uteri; Z90.49 Acquired absence of other specified parts of digestive tract; Z90.710 Acquired absence of both cervix and uterus; Z98.42 Cataract extraction status, left eye; Z98.41 Cataract extraction status, right eye; Z87.2 Personal history of diseases of the skin and subcutaneous tissue; Z87.891 Personal history of nicotine dependence; Z98.890 Other specified postprocedural states; Z88.8 Allergy status to other drugs, medicaments and biological substances; Z82.49 Family history of ischemic heart disease and other diseases of the circulatory system; Z82.3 Family history of stroke
CPT/HCPCS: 33207; 36415; 70450; 70496; 70498; 71045; 71046; 80048; 80053; 80061; 81001; 83036; 83735; 83880; 84443; 84484; 85025; 85610; 85730; 87077; 87086; 87186; 87635; 93005; 93306; 93308; 94760; 96361; 96365; 96366; 99285

== ENCOUNTER 2021-06-13 05:26 | Emergency (ER) | payer MEDICARE, BC ==
[2021-06-13 05:37] VITALS: RESP 18; TEMP 98
--- NOTE | 2021-06-13 06:23 | ED ---
General Adult HPI - General Chief complaint: Back Pain/Injury Stated complaint: Chest Pain Source: patient Mode of arrival: EMS Limitations: no limitations - History of Present Illness Initial comments: 80-year-old female presents to the emergency room with a past medical history of atrial fibrillation with pacemaker implantation May 19 for bradycardia, CVA, diabetes mellitus, hyperlipidemia, hypertension for a chief complaint of chest wall pain. Patient reports area around pacemaker site has been painful for the past day. Patient reports she notices that it is painful when she presses on the area around the pacemaker. Patient denies any chest pain or shortness of breath. Patient did start rehab last week the left arm. Patient was given Tylenol at [facility] but it did not help. Therefore she was sent into the emergency room.Patient has no other complaints at this time including shortness of breath, chest pain, abdominal pain, nausea or vomiting, headache, or visual changes. - Related Data Home Medications Medication Instructions Recorded Confirmed metFORMIN HCL [Glucophage] 500 mg PO BID 07/02/15 05/18/21 Cinnamon Bark [Cinnamon] 500 mg PO DAILY 07/15/15 05/18/21 Atorvastatin [Lipitor] 40 mg PO HS 04/05/17 05/18/21 Omeprazole 20 mg PO HS 09/10/19 05/18/21 Cholecalciferol [Vitamin D3 (25 25 mcg PO DAILY 02/18/21 05/18/21 Mcg = 1000 Iu)] Acetaminophen [Tylenol 8 Hour] 650 mg PO Q6H PRN 06/13/21 06/13/21 Aspirin 81 mg PO DAILY@0806/13/21 06/13/21 Ferrous Sulfate [Feosol] 325 mg PO DAILY 06/13/21 06/13/21 INSULIN ASPART (NovoLOG) [NovoLOG See Protocol SQ BID@0700,1630 06/13/21 06/13/21 (formulary)] Magnesium Hydroxide [Milk of 2,400 mg PO DAILY PRN 06/13/21 06/13/21 Magnesia] Magnesium Oxide [Mag-Ox] 400 mg PO DAILY@0800 06/13/21 06/13/21 Na Phos,M-B/Na Phos,Di-Ba [Fleet 133 ml RECTAL DAILY PRN 06/13/21 06/13/21 Adult] Rivaroxaban [Xarelto] 20 mg PO DAILY@1700 06/13/21 06/13/21 Vit C/E/Zn/Coppr/Lutein/Zeaxan 1 cap PO DAILY@0800 06/13/21 06/13/21 [Preservision Areds 2 Softgel] bisacodyL [Dulcolax] 10 mg RECTAL DAILY PRN 06/13/21 06/13/21 carvediloL [Coreg] 6.25 mg PO BID@0800,1700 06/13/21 06/13/21 hydrALAZINE HCL [Apresoline] 100 mg PO TID@0600,1400,2100 06/13/21 06/13/21 lisinopriL [Zestril] 20 mg PO BID@0800,1700 06/13/21 06/13/21 Previous Rx's Medication Instructions Recorded HYDROcodone/APAP 5-325MG [Pullman 1 tab PO Q6HR PRN #10 tab 06/13/21 5-325] Allergies Allergy/AdvReac Type Severity Reaction Status Date / Time amlodipine Allergy Anaphylaxis Verified 06/13/21 07:52 isosorbide mononitrate Allergy Rash/Hives Verified 06/13/21 07:52 [From Imdur] Review of Systems ROS Statement: Those systems with pertinent positive or pertinent negative responses have been documented in the HPI. ROS Other: All systems not noted in ROS Statement are negative. Past Medical History Past Medical History: Atrial Fibrillation, Cancer, CVA/TIA, Diabetes Mellitus, GERD/Reflux, Hyperlipidemia, Hypertension, Osteoarthritis (OA), Syncope Additional Past Medical History / Comment(s): Osteoporosis, hiatal hernia, diverticulosis, polyps, cervical cancer, DJD, recent hospitalization for small bowel obstruction & had surgery in February 2021. History of Any Multi-Drug Resistant Organisms: None Reported Past Surgical History: Back Surgery, Bowel Resection, Heart Catheterization, Hysterectomy Additional Past Surgical History / Comment(s): EGD, Colonoscopy, bilateral cataract removed, "fatty tumor" removed from her back, exp. laparotomy w/small bowel resection Past Anesthesia/Blood Transfusion Reactions: No Reported Reaction, Motion Sic kness Additional Past Anesthesia/Blood Transfusion Reaction / Comment(s): Pt has never recieved blood. SON "CODED" POST HIP REPLACEMENT Past Psychological History: Anxiety Smoking Status: Former smoker Past Alcohol Use History: None Reported Past Drug Use History: None Reported - Past Family History Father Family Medical History: Myocardial Infarction (AR) Additional Family Medical History / Comment(s): Father of a AR at age 76yrs. Mother Family Medical History: CVA/TIA Additional Family Medical History / Comment(s): Mother had a CVA at age 88yrs. She at age 92yrs. General Exam Limitations: no limitations General appearance: alert, in no apparent distress Head exam: Present: atraumatic Eye exam: Present: normal appearance, PERRL, EOMI. Absent: scleral icterus, conjunctival injection ENT exam: Present: normal exam, mucous membranes moist Neck exam: Present: normal inspection, full ROM. Absent: tenderness Respiratory exam: Present: normal lung sounds bilaterally, chest wall tenderness (Patient has left sided chest wall tenderness around pacemaker site. Pacemaker incision appears well healing, there is no erythema or edema. There is no tenderness to the right side of the chest wall.). Absent: respiratory distress, wheezes Cardiovascular Exam: Present: regular rate, normal rhythm, normal heart sounds GI/Abdominal exam: Present: soft, normal bowel sounds. Absent: distended, tenderness Neurological exam: Present: alert Course Vital Signs 06/13/21 05:33 Temperature 98 F Pulse Rate 91 Respiratory 18 Rate Blood Pressure 156/73 O2 Sat by Pulse 96 Oximetry EKG Findings - EKG Comments: EKG Findings:: Afib, vent rate 74, qrs 78, QTc 437 Medical Decision Making - Medical Decision Making 80-year-old female presents for pacemaker site pain. States it is painful to press on the area. Denies any chest pain. Physical exam does not reveal any erythema or edema around the site however she does have tenderness around the site. No tenderness on the right side of the chest. She did also just started physical therapy on the left arm which is likely related. Chest x-ray shows no evidence of acute Holger pulmonary abnormality. Cardiac pacer hardware again seen. Patient was given a small dose of pain medication here in the emergency department and did have improvement in symptoms. Patient immediately discharged home with pain medication as she is not given any at the halfway aside from Tylenol. She can return here for any worsening symptoms. Disposition Clinical Impression: Left-sided chest wall pain Disposition: HOME SELF-CARE Condition: Good Instructions (If sedation given, give patient instructions): Costochondritis (ED) Additional Instructions: Take norco for pain. Please follow up with primary care. Return to the ER for any worsening symptoms. Prescriptions: HYDROcodone/APAP 5-325MG [Pullman 5-325] 1 tab PO Q6HR PRN #10 tab PRN Reason: Pain Is patient prescribed a controlled substance at d/c from ED?: Yes When asked, does pt state using other controlled substances?: No If prescribed controlled substance>3 days was MAPS reviewed?: Prescribed <3 Days If opioid is for acute pain is fill amount 7 days or less?: Yes If Rx opioid, was Start Talking consent form obtained?: Yes Referrals: Gen Palma MD [Primary Care Provider] - 1-2 days Time of Disposition: 07:43
[2021-06-13] MEDS ORDERED: MORPHINE SULFATE 2 MG/ML SYRINGE IVP STA (06:24)
--- NOTE | 2021-06-13 07:09 | XR ---
EXAM: XR Chest, 2 Views CLINICAL HISTORY: Left axillary pain. TECHNIQUE: Frontal and lateral views of the chest. COMPARISON: 05/27/21 FINDINGS: Lungs: No evidence of airspace consolidation. No pulmonary edema. Again seen is a rounded nodular opacity within the right lower lung, unchanged since the prior exam 2 weeks ago and most likely a granuloma. Pleural space: No evidence of pneumothorax. Heart: Cardiac silhouette is top normal. Cardiac pacer hardware in place. Mediastinum: There is no mediastinal widening or shift. Bones/joints: No acute osseous abnormality. IMPRESSION: No evidence of acute cardiopulmonary abnormality. Cardiac pacer hardware again seen.
[2021-06-13 08:06] VITALS: BP 159/60; PULSE 60
== END 2021-06-13 09:23 | disposition home or self-care (01) ==
LOC: EC 05:26
DX: R07.89 Other chest pain (principal); I48.91 Unspecified atrial fibrillation; E11.9 Type 2 diabetes mellitus without complications; K21.9 Gastro-esophageal reflux disease without esophagitis; E78.5 Hyperlipidemia, unspecified; I10 Essential (primary) hypertension; F41.9 Anxiety disorder, unspecified; M19.90 Unspecified osteoarthritis, unspecified site; Z79.4 Long term (current) use of insulin; Z79.82 Long term (current) use of aspirin; Z86.73 Personal history of transient ischemic attack (TIA), and cerebral infarction without residual deficits; Z85.41 Personal history of malignant neoplasm of cervix uteri; Z90.710 Acquired absence of both cervix and uterus; Z87.891 Personal history of nicotine dependence; Z95.0 Presence of cardiac pacemaker
CPT/HCPCS: 99285; 96374; 93005; 71046; J2270

== ENCOUNTER 2021-07-24 20:50 | Emergency (ER) | payer MEDICARE, BC ==
[2021-07-24 21:29] VITALS: RESP 19; TEMP 98.6
[2021-07-25 01:04] VITALS: BP 174/64; PULSE 60
[2021-07-25] MEDS ORDERED: IBUPROFEN 600 MG TAB PO STA (02:16)
[2021-07-25] MEDS ORDERED: traMADol 50 MG TAB PO STA (02:16)
--- NOTE | 2021-07-25 02:16 | ED ---
Fall HPI - General Chief Complaint: Fall Stated Complaint: Back Pain Time Seen by Provider: 07/25/21 01:11 Source: patient, family, RN notes reviewed, old records reviewed, Caregiver Mode of arrival: wheelchair Limitations: no limitations - History of Present Illness Initial Comments: This is an 80-year-old female status post fall. Patient fall from standing earlier in the day she did complete all of her daily activities this is the first day she's been home from rehabilitation. Patient did have severe back pain when she lay down to go to sleep without difficulty sleeping. 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 Witnessed: yes, by family Place Fall Occurred: home Loss of Consciousness: none Prolonged Down Time?: no Symptoms Prior to Fall: none Location: back, buttocks Severity: moderate Severity scale (1-10): 5 Quality: sharp Context: tripped/slipped Associated Symptoms: denies - Related Data Home Medications Medication Instructions Recorded Confirmed metFORMIN HCL [Glucophage] 500 mg PO BID@0800,1700 07/02/15 06/13/21 Cinnamon Bark [Cinnamon] 500 mg PO DAILY@0800 07/15/15 06/13/21 Atorvastatin [Lipitor] 40 mg PO HS@2100 04/05/17 06/13/21 Omeprazole 20 mg PO HS@2100 09/10/19 06/13/21 Cholecalciferol [Vitamin D3 (25 25 mcg PO DAILY@0800 02/18/21 06/13/21 Mcg = 1000 Iu)] Acetaminophen [Tylenol 8 Hour] 650 mg PO Q6H PRN 06/13/21 06/13/21 Aspirin 81 mg PO DAILY@0806/13/21 06/13/21 Ferrous Sulfate [Feosol] 325 mg PO DAILY 06/13/21 06/13/21 INSULIN ASPART (NovoLOG) [NovoLOG See Protocol SQ BID@0700,1630 06/13/21 06/13/21 (formulary)] Magnesium Hydroxide [Milk of 2,400 mg PO DAILY PRN 06/13/21 06/13/21 Magnesia] Magnesium Oxide [Mag-Ox] 400 mg PO DAILY@0800 06/13/21 06/13/21 Na Phos,M-B/Na Phos,Di-Ba [Fleet 133 ml RECTAL DAILY PRN 06/13/21 06/13/21 Adult] Rivaroxaban [Xarelto] 20 mg PO DAILY@1700 06/13/21 06/13/21 Vit C/E/Zn/Coppr/Lutein/Zeaxan 1 cap PO DAILY@0800 06/13/21 06/13/21 [Preservision Areds 2 Softgel] bisacodyL [Dulcolax] 10 mg RECTAL DAILY PRN 06/13/21 06/13/21 carvediloL [Coreg] 6.25 mg PO BID@0800,1700 06/13/21 06/13/21 hydrALAZINE HCL [Apresoline] 100 mg PO TID@0600,1400,2100 06/13/21 06/13/21 lisinopriL [Zestril] 20 mg PO BID@0800,1700 06/13/21 06/13/21 Previous Rx's Medication Instructions Recorded HYDROcodone/APAP 5-325MG [[place] 1 tab PO Q6HR PRN #10 tab 06/13/21 5-325] Allergies Allergy/AdvReac Type Severity Reaction Status Date / Time amlodipine Allergy Anaphylaxis Verified 07/24/21 21:29 isosorbide mononitrate Allergy Rash/Hives Verified 07/24/21 21:29 [From Imdur] Review of Systems ROS Statement: Those systems with pertinent positive or pertinent negative responses have been documented in the HPI. ROS Other: All systems not noted in ROS Statement are negative. Past Medical History Past Medical History: Atrial Fibrillation, Cancer, CVA/TIA, Diabetes Mellitus, GERD/Reflux, Hyperlipidemia, Hypertension, Osteoarthritis (OA), Syncope Additional Past Medical History / Comment(s): Osteoporosis, hiatal hernia, diverticulosis, polyps, cervical cancer, DJD, recent hospitalization for small bowel obstruction & had surgery in February 2021. History of Any Multi-Drug Resistant Organisms: None Reported Past Surgical History: Back Surgery, Bowel Resection, Heart Catheterization, Hysterectomy Additional Past Surgical History / Comment(s): EGD, Colonoscopy, bilateral cataract removed, "fatty tumor" removed from her back, exp. laparotomy w/small bowel resection Past Anesthesia/Blood Transfusion Reactions: No Reported Reaction, Motion Sickness Additional Past Anesthesia/Blood Transfusion Reaction / Comment(s): Pt has never recieved blood. SON "CODED" POST HIP REPLACEMENT Past Psychological History: Anxiety Smoking Status: Former smoker Past Alcohol Use History: None Reported Past Drug Use History: None Reported - Past Family History Father Family Medical History: Myocardial Infarction ([place]) Additional Family Medical History / Comment(s): Father of a [place] at age 76yrs. Mother Family Medical History: CVA/TIA Additional Family Medical History / Comment(s): Mother had a CVA at age 88yrs. She at age 92yrs. General Exam General appearance: alert, in no apparent distress Head exam: Present: atraumatic, normocephalic, normal inspection Eye exam: Present: normal appearance, PERRL, EOMI. Absent: scleral icterus, conjunctival injection, periorbital swelling ENT exam: Present: normal exam, mucous membranes moist Neck exam: Present: normal inspection. Absent: tenderness, meningismus, lymphadenopathy Respiratory exam: Present: normal lung sounds bilaterally. Absent: respiratory distress, wheezes, rales, rhonchi, stridor Cardiovascular Exam: Present: regular rate, normal rhythm, normal heart sounds. Absent: systolic murmur, diastolic murmur, rubs, gallop, clicks GI/Abdominal exam: Present: soft, normal bowel sounds. Absent: distended, tenderness, guarding, rebound, rigid Extremities exam: Present: normal inspection, full ROM, normal capillary refill. Absent: tenderness, pedal edema, joint swelling, calf tenderness Back exam: Present: normal inspection Neurological exam: Present: alert, oriented X3, CN II-XII intact Psychiatric exam: Present: normal affect, normal mood Skin exam: Present: warm, dry, intact, normal color. Absent: rash Course Vital Signs 07/24/21 07/25/21 21:22 01:03 Temperature 98.6 F Pulse Rate 61 60 Respiratory 19 19 Rate Blood Pressure 133/55 174/64 O2 Sat by Pulse 98 98 Oximetry - Reevaluation(s) Reevaluation #1: 07/25/21 02:36 Medical record is reviewed Reevaluation #2: 07/25/21 02:36 Patient has adequate pain control Reevaluation #3: 07/25/21 02:36 Patient family informed results and questions answered Reevaluation #4: 07/25/21 02:36 Patient is able to ambulate Medical Decision Making - Medical Decision Making 80 female to the emergency department status post fall fall backwards fell backwards on the but with pain. Ration does have LS spine compression fracture L2, mild, patient's pain is controlled and patient can be discharged home - Radiology Data Radiology results: report reviewed (X-ray LS-spine as well as CT LS-spine does show lumbar compression fracture), image reviewed Disposition Clinical Impression: Fall, Back pain, Lumbar compression fracture Disposition: HOME SELF-CARE Condition: Good Instructions (If sedation given, give patient instructions): Fall Prevention for Older Adults (ED), Thoracolumbar Fracture (ED), Acute Low Back Pain (ED) Is patient prescribed a controlled substance at d/c from ED?: No Referrals: Gen Palma MD [Primary Care Provider] - 1-2 days
--- NOTE | 2021-07-25 02:59 | XR ---
EXAMINATION TYPE: XR lumbosacral spine min 4V DATE OF EXAM: 07/25/2021 COMPARISON: 07/26/2017 HISTORY: Pain TECHNIQUE: 5 views FINDINGS: Lumbar vertebra have a L4-5 mild subluxation deformity that measures 7 mm. I see no definit e spondylolysis. There is anterior wedging of L1 vertebra with 30% loss of height. Abdominal aorta is atheromatous. Sacroiliac joints are intact. IMPRESSION: There is a degenerative first-degree L4-5 spondylolisthesis that appears increased compar ed to old exam. There is L1 compression fracture that is new compared to old exam. Age of the fracture is not clear.
--- NOTE | 2021-07-25 04:09 | CT ---
EXAMINATION TYPE: CT lumbar spine wo con DATE OF EXAM: 07/25/2021 COMPARISON: HISTORY: back pain CT DLP: 793 mGycm Automated exposure control for dose reduction was used. CT scan lumbar spine. History fall. Back pain. Comparison 09/21/2019. TECHNIQUE: Images obtained from the level of T12-S3 vertebra without contrast. FINDINGS: There is 5 mm anterior subluxation of L4 in relation L5. There is left side L4 spondylolysis. There is compression fracture of L1 vertebral body that appears acute. There is some minimal fragment extension posteriorly into the spinal canal. There is approximate 15% loss of height. There is no lumbar paraspinal mass. I see no focal bone destruction. IMPRESSION: Acute mild compression fracture of L1 vertebra. Posterior fragment extension into the spinal canal 4 mm but no spinal stenosis. L4-5 mild spinal first-degree spondylolisthesis.
[2021-07-25] MEDS ORDERED: traMADol 50 MG STARTER PACK 3 TAB BTL PO STA (04:33)
[2021-07-25] MEDS ORDERED: ACET/COD 300 MG/30 MG STARTER PACK 6 TAB BTL PO STA (04:33)
== END 2021-07-25 05:20 | disposition home or self-care (01) ==
LOC: EC 20:50
DX: S32.020A Wedge compression fracture of second lumbar vertebra, initial encounter for closed fracture (principal); E11.36 Type 2 diabetes mellitus with diabetic cataract; I10 Essential (primary) hypertension; I48.91 Unspecified atrial fibrillation; E78.5 Hyperlipidemia, unspecified; K21.9 Gastro-esophageal reflux disease without esophagitis; M19.90 Unspecified osteoarthritis, unspecified site; Z79.4 Long term (current) use of insulin; Z79.82 Long term (current) use of aspirin; Z79.01 Long term (current) use of anticoagulants; Z79.899 Other long term (current) drug therapy; Z82.49 Family history of ischemic heart disease and other diseases of the circulatory system; Z85.41 Personal history of malignant neoplasm of cervix uteri; Z86.73 Personal history of transient ischemic attack (TIA), and cerebral infarction without residual deficits; Z87.891 Personal history of nicotine dependence; Z88.8 Allergy status to other drugs, medicaments and biological substances; Z90.49 Acquired absence of other specified parts of digestive tract; W01.0XXA Fall on same level from slipping, tripping and stumbling without subsequent striking against object, initial encounter; Y92.009 Unspecified place in unspecified non-institutional (private) residence as the place of occurrence of the external cause
CPT/HCPCS: 72110; 72131; 99284

== ENCOUNTER 2021-07-27 05:39 | Emergency (ER) | payer MEDICARE, BC ==
[2021-07-27 05:58] VITALS: BP 166/69; PULSE 85; RESP 16; TEMP 98.2
[2021-07-27] MEDS ORDERED: traMADol 50 MG TAB PO STA (06:35)
--- NOTE | 2021-07-27 06:45 | ED ---
General Adult HPI - General Chief complaint: Recheck/Abnormal Lab/Rx Stated complaint: Revisit back pain Time Seen by Provider: 07/27/21 06:18 Source: patient, EMS, RN notes reviewed Mode of arrival: EMS Limitations: no limitations - History of Present Illness Initial comments: The patient's an 80-year-old female who presented to the emergency room today by EMS, the chief complaint lower back pain. Patient does admit to a fall that occurred 3 days ago. She states she stood up she fell down landing on her butt. She states she was seen here in the emergency room. Both x-rays and a CAT scan which did show a fracture of L1. Patient states that she was given pain medication of tramadol which was working well for her. She states that she ran out of his pain medication and is her reason for return to the emergency room today. She states at times she's felt some pain shoot down both left and right legs to approximately the knee area. Denies any numbness or tingling. Denies any saddle anesthesia. Denies any other complaints or any other symptoms at this time. Patient denies any recent fever, chills, shortness of breath, chest pain, abdominal pain, nausea or vomiting, headaches or visual changes, or any other complaints. - Related Data Home Medications Medication Instructions Recorded Confirmed metFORMIN HCL [Glucophage] 500 mg PO BID@0800,1700 07/02/15 06/13/21 Cinnamon Bark [Cinnamon] 500 mg PO DAILY@0800 07/15/15 06/13/21 Atorvastatin [Lipitor] 40 mg PO HS@2100 04/05/17 06/13/21 Omeprazole 20 mg PO HS@2100 09/10/19 06/13/21 Cholecalciferol [Vitamin D3 (25 25 mcg PO DAILY@0800 02/18/21 06/13/21 Mcg = 1000 Iu)] Acetaminophen [Tylenol 8 Hour] 650 mg PO Q6H PRN 06/13/21 06/13/21 Aspirin 81 mg PO DAILY@0800 06/13/21 06/13/21 Ferrous Sulfate [Feosol] 325 mg PO DAILY 06/13/21 06/13/21 INSULIN ASPART (NovoLOG) [NovoLOG See Protocol SQ BID@0700,1630 06/13/21 06/13/21 (formulary)] Magnesium Hydroxide [Milk of 2,400 mg PO DAILY PRN 06/13/21 06/13/21 Magnesia] Magnesium Oxide [Mag-Ox] 400 mg PO DAILY@0800 06/13/21 06/13/21 Na Phos,M-B/Na Phos,Di-Ba [Fleet 133 ml RECTAL DAILY PRN 06/13/21 06/13/21 Adult] Rivaroxaban [Xarelto] 20 mg PO DAILY@1700 06/13/21 06/13/21 Vit C/E/Zn/Coppr/Lutein/Zeaxan 1 cap PO DAILY@0800 06/13/21 06/13/21 [Preservision Areds 2 Softgel] bisacodyL [Dulcolax] 10 mg RECTAL DAILY PRN 06/13/21 06/13/21 carvediloL [Coreg] 6.25 mg PO BID@0800,1700 06/13/21 06/13/21 hydrALAZINE HCL [Apresoline] 100 mg PO TID@0600,1400,2100 06/13/21 06/13/21 lisinopriL [Zestril] 20 mg PO BID@0800,1700 06/13/21 06/13/21 Previous Rx's Medication Instructions Recorded HYDROcodone/APAP 5-325MG [[place] 1 tab PO Q6HR PRN #10 tab 06/13/21 5-325] traMADol HCl [Ultram] 50 mg PO Q6HR PRN 3 Days #12 tab 07/27/21 Allergies Allergy/AdvReac Type Severity Reaction Status Date / Time amlodipine Allergy Anaphylaxis Verified 07/24/21 21:29 isosorbide mononitrate Allergy Rash/Hives Verified 07/24/21 21:29 [From Imdur] Review of Systems ROS Statement: Those systems with pertinent positive or pertinent negative responses have been documented in the HPI. ROS Other: All systems not noted in ROS Statement are negative. Past Medical History Past Medical History: Atrial Fibrillation, Cancer, CVA/TIA, Diabetes Mellitus, GERD/Reflux, Hyperlipidemia, Hypertension, Osteoarthritis (OA), Syncope Additional Past Medical History / Comment(s): Osteoporosis, hiatal hernia, diverticulosis, polyps, cervical cancer, DJD, recent hospitalization for small bowel obstruction & had surgery in February 2021. History of Any Multi-Drug Resistant Organisms: None Reported Past Surgical History: Back Surgery, Bowel Resection, Heart Catheterization, Hysterectomy Additional Past Surgical History / Comment(s): EGD, Colonoscopy, bilateral cataract removed, "fatty tumor" removed from her back, exp. laparotomy w/small bowel resection Past Anesthesia/Blood Transfusion Reactions: No Reported Reaction, Motion Sickness Additional Past Anesthesia/Blood Transfusion Reaction / Comment(s): Pt has never recieved blood. SON "CODED" POST HIP REPLACEMENT Past Psychological History: Anxiety Smoking Status: Former smoker Past Alcohol Use History: None Reported Past Drug Use History: None Reported - Past Family History Father Family Medical History: Myocardial Infarction ([place]) Additional Family Medical History / Comment(s): Father of a [place] at age 76yrs. Mother Family Medical History: CVA/TIA Additional Family Medical History / Comment(s): Mother had a CVA at age 88yrs. She at age 92yrs. General Exam Limitations: no limitations General appearance: alert, in no apparent distress Head exam: Present: atraumatic, normocephalic, normal inspection Eye exam: Present: normal appearance, EOMI. Absent: scleral icterus, conjunctival injection, periorbital swelling ENT exam: Present: normal exam, mucous membranes moist Neck exam: Present: normal inspection. Absent: tenderness, meningismus, lymphadenopathy Respiratory exam: Present: normal lung sounds bilaterally. Absent: respiratory distress, wheezes, rales, rhonchi, stridor Cardiovascular Exam: Present: regular rate, normal rhythm, normal heart sounds. Absent: systolic murmur, diastolic murmur, rubs, gallop, clicks GI/Abdominal exam: Present: soft. Absent: distended, tenderness, guarding, rebound, rigid Extremities exam: Present: normal inspection, full ROM, normal capillary refill. Absent: tenderness, pedal edema, joint swelling, calf tenderness Back exam: Present: normal inspection, tenderness, other (Mild tenderness L1/L2.) Neurological exam: Present: alert, oriented X3, CN II-XII intact Psychiatric exam: Present: normal affect, normal mood Skin exam: Present: warm, dry, intact, normal color. Absent: rash Course Vital Signs 07/27/21 05:56 Temperature 98.2 F Pulse Rate 85 Respiratory 16 Rate Blood Pressure 166/69 O2 Sat by Pulse 96 Oximetry Medical Decision Making - Medical Decision Making CT was reviewed and did show compression fracture of L4 with some posterior fragment 4 mm with no spinal stenosis. Patient's neuro exam is normal here in emergency room. She denies any bowel or bladder incontinence retention. No saddle anesthesia. At times she's had some pain radiate to the legs bilater ally. She states the tramadol was working well for her. She states her reason to return if she ran out of pain medication. Patient was given a short prescription of pain medication advised to follow with both family and orthopedic doctors. Disposition Clinical Impression: Lumbar vertebral fracture Disposition: HOME SELF-CARE Condition: Good Instructions (If sedation given, give patient instructions): Vertebral Compression Fracture (ED) Additional Instructions: Please follow-up the family physician/orthopedics over the next 2 days. He pain medication as prescribed. Return to emergency room for any concerns. Prescriptions: traMADol HCl [Ultram] 50 mg PO Q6HR PRN 3 Days #12 tab PRN Reason: Pain Is patient prescribed a controlled substance at d/c from ED?: Yes If prescribed controlled substance>3 days was MAPS reviewed?: Prescribed <3 Days Referrals: Gen Palma MD [Primary Care Provider] - 1-2 days Huang Gotti DO [Doctor of Osteopathic Medicine] - 1-2 days Time of Disposition: 06:40
== END 2021-07-27 07:20 | disposition home or self-care (01) ==
LOC: EC 05:39
DX: S32.049A Unspecified fracture of fourth lumbar vertebra, initial encounter for closed fracture (principal); E11.9 Type 2 diabetes mellitus without complications; I10 Essential (primary) hypertension; E78.5 Hyperlipidemia, unspecified; K21.9 Gastro-esophageal reflux disease without esophagitis; I48.91 Unspecified atrial fibrillation; M19.90 Unspecified osteoarthritis, unspecified site; F41.9 Anxiety disorder, unspecified; Z87.891 Personal history of nicotine dependence; Z79.4 Long term (current) use of insulin; Z79.82 Long term (current) use of aspirin; Z79.899 Other long term (current) drug therapy; W18.30XA Fall on same level, unspecified, initial encounter
CPT/HCPCS: 99284

== ENCOUNTER 2021-08-19 15:03 | Emergency (ER) | payer MEDICARE, BC ==
[2021-08-19 15:11] VITALS: RESP 18
[2021-08-19] MEDS ORDERED: SODIUM CHLORIDE 0.9% 1,000 ML IV ONE (16:12)
[2021-08-19] MEDS ORDERED: MORPHINE SULFATE 2 MG/ML SYRINGE IVP STA (16:12)
[2021-08-19 17:18] LABS: Anisocytosis Moderate; Basophils # (A) 0.1 k/uL (0-0.2); Basophils % (A) 0 %; Eosinophils # (A) 0.2 k/uL (0-0.7); Eosinophils % (A) 1 %; HCT 41.8 % (34.0-46.0); HGB 12.4 gm/dL (11.4-16.0); Hypochromasia Moderate; Lymphocytes # (A) 1.9 k/uL (1.0-4.8); Lymphocytes % (A) 13 %; MCHC 29.6 g/dL (31.0-37.0); MCV 84.4 fL (80.0-100.0); Mean Platelet Volume 7.1; Microcytosis Slight; Monocytes # (A) 0.9 k/uL (0-1.0); Monocytes % (A) 6 %; Neutrophils # (A) 11.1 k/uL (1.3-7.7); Neutrophils % (A) 78 %; Platelet Count 374 k/uL (150-450); RBC 4.95 m/uL (3.80-5.40); RDW 20.9 % (11.5-15.5); WBC 14.2 k/uL (3.8-10.6)
[2021-08-19 17:27] LABS: ALT 11 U/L (4-34); AST 16 U/L (14-36); African American GFR (CKD) >90 (>60 ml/min/1.73 sqM); Albumin 3.9 g/dL (3.5-5.0); Alkaline Phosphatase 74 U/L (38-126); Amylase 40 U/L (30-110); Anion Gap 10 mmol/L; Blood Urea Nitrogen 21 mg/dL (7-17); Calcium 9.7 mg/dL (8.4-10.2); Carbon Dioxide 26 mmol/L (22-30); Chloride 104 mmol/L (98-107); Glucose 147 mg/dL (74-99); Lipase 55 U/L (23-300); Non-African American GFR(CKD) 86 (>60 ml/min/1.73 sqM); Potassium 3.6 mmol/L (3.5-5.1); Sodium 140 mmol/L (137-145); Total Bilirubin 0.6 mg/dL (0.2-1.3); Total Protein 6.9 g/dL (6.3-8.2)
[2021-08-19 19:07] LABS: Appearance,Urine Clear (Clear); Bacteria,Urine Rare /hpf; Bilirubin,Urine Negative (Negative); Blood,Urine Negative (Negative); Color,Urine Yellow; Glucose,Urine (UA) Negative (Negative); Ketones,Urine Trace (Negative); Leukocyte Esterase,Urine Small (Negative); Mucus,Urine Rare /hpf; Nitrite,Urine Negative (Negative); PH, Urine 6.5 (5.0-8.0); Protein,Urine 1+ (Negative); RBC,Urine 4 /hpf (0-5); Squamous Epithelial Cell,Urine 14 /hpf (0-4); Urobilinogen,Urine <2.0 mg/dL (<2.0); WBC,Urine 11 /hpf (0-5)
--- NOTE | 2021-08-19 19:20 | CT ---
EXAMINATION TYPE: CT abdomen pelvis w con DATE OF EXAM: 08/19/2021 COMPARISON: 02/19/2020 HISTORY: Pelvic pain. CT DLP: 792.1 mGycm Automated exposure control for dose reduction was used. TECHNIQUE: Helical acquisition of images was performed from the lung bases through the pelvis. CONTRAST: Performed without Oral Contrast and with IV Contrast, patient injected with 80 mL of Isovue 300. FINDINGS: LUNG BASES: No significant abnormality is appreciated. LIVER/GB: No significant abnormality is appreciated. PANCREAS: No significant abnormality is seen. SPLEEN: No significant abnormality is seen. ADRENALS: No significant abnormality is seen. KIDNEYS: No significant abnormality is seen. FREE AIR: No free air is visualized. RETROPERITONEAL ADENOPATHY: None visualized REPRODUCTIVE ORGANS: No significant abnormality is seen URINARY BLADDER: No significant abnormality is seen. PELVIC ADENOPATHY: None visualized. OSSEOUS STRUCTURES: No significant abnormality is seen. BOWEL: No significant abnormality is seen. There is prominent colonic redundancy and prominent diver ticulosis. There is no evidence of diverticulitis. OTHER: No acute vascular findings. Redemonstrated aneurysmal aortoiliac atherosclerotic disease. IMPRESSION: NO ACUTE PROCESS.
[2021-08-19 19:48] LABS: Specific Gravity,Urine >1.050 (1.001-1.035)
--- NOTE | 2021-08-19 20:18 | ED ---
General Adult HPI - General Chief complaint: Abdominal Pain Stated complaint: L side pain Time Seen by Provider: 08/19/21 16:02 Source: patient, RN notes reviewed, old records reviewed Mode of arrival: wheelchair Limitations: no limitations - History of Present Illness Initial comments: Patient is an 81-year-old female with past medical history remarkable for atrial fibrillation, cancer, CVA, diabetes, hypertension with residual left-sided weakness particularly in the legs from a CVA presents emergency Department complaining of lower abdominal discomfort with radiation into her upper anterior thighs. Patient is currently being treated for UTI. She is also going to physical therapy to rehab following her CVA. She has noticed that she is having worsening pain in her upper thighs with radiation into her lower abdomen. They thought it may be related subtherapeutic but when it did not improve they brought him to the emergency department for evaluation. She does have a history of diverticulitis in the are concerned that they may be what is going on. Patient had one episode of loose stool yesterday. She denies any fevers, chills, cough. Denies any chest pain, shortness breath. She is no other acute complaints at this time. Patient presents with her son who aids in the history. This was otherwise acting her baseline self. She was evaluated when she was placed in a room. - Related Data Home Medications Medication Instructions Recorded Confirmed Atorvastatin [Lipitor] 40 mg PO HS 04/05/17 08/19/21 Acetaminophen [Tylenol 8 Hour] 650 mg PO Q6H PRN 06/13/21 08/19/21 Ferrous Sulfate [Feosol] 325 mg PO DAILY 06/13/21 08/19/21 carvediloL [Coreg] 6.25 mg PO BID 06/13/21 08/19/21 lisinopriL [Zestril] 20 mg PO HS 06/13/21 08/19/21 C,E,Zinc,Copper 11/Djigf1n/Lut 1 cap PO DAILY 08/19/21 08/19/21 [Ocuvite Adult 50 Plus Softgel] Famotidine [Pepcid] 20 mg PO DAILY 08/19/21 08/19/21 Nitrofurantoin Monohyd/M-Cryst 100 mg PO BID 08/19/21 08/19/21 [Macrobid] Rivaroxaban [Xarelto] 15 mg PO W/SUPPER 08/19/21 08/19/21 hydrALAZINE HCL [Apresoline] 100 mg PO TID 08/19/21 08/19/21 traMADol HCl [Ultram] 50 - 100 mg PO Q8H PRN 08/19/21 08/19/21 Allergies Allergy/AdvReac Type Severity Reaction Status Date / Time amlodipine Allergy Anaphylaxis Verified 08/19/21 17:33 isosorbide mononitrate Allergy Rash/Hives Verified 08/19/21 17:33 [From Imdur] Review of Systems ROS Statement: Those systems with pertinent positive or pertinent negative responses have been documented in the HPI. Review of Systems: CONST: Denies fever EYES: Denies blurry vision ENT: Denies nasal congestion C/V: Denies Chest pain RESP: Denies shortness of breath GI: Endorses abdominal pain : Denies dysuria SKIN: Denies rash. MSK: Denies joint pain. NEURO: Denies headache ROS Other: All systems not noted in ROS Statement are negative. Past Medical History Past Medical History: Atrial Fibrillation, Cancer, CVA/TIA, Diabetes Mellitus, GERD/Reflux, Hyperlipidemia, Hypertension, Osteoarthritis (OA), Syncope Additional Past Medical History / Comment(s): Osteoporosis, hiatal hernia, diverticulosis, polyps, cervical cancer, DJD, recent hospitalization for small bowel obstruction & had surgery in February 2021. History of Any Multi-Drug Resistant Organisms: None Reported Past Surgical History: Back Surgery, Bowel Resection, Heart Catheterization, Hysterectomy Additional Past Surgical History / Comment(s): EGD, Colonoscopy, bilateral cataract removed, "fatty tumor" removed from her back, exp. laparotomy w/small bowel resection Past Anesthesia/Blood Transfusion Reactions: No Reported Reaction, Motion S ickness Additional Past Anesthesia/Blood Transfusion Reaction / Comment(s): Pt has never recieved blood. SON "CODED" POST HIP REPLACEMENT Past Psychological History: Anxiety Smoking Status: Former smoker Past Alcohol Use History: None Reported Past Drug Use History: None Reported - Past Family History Father Family Medical History: Myocardial Infarction (SD) Additional Family Medical History / Comment(s): Father of a SD at age 76yrs. Mother Family Medical History: CVA/TIA Additional Family Medical History / Comment(s): Mother had a CVA at age 88yrs. She at age 92yrs. General Exam - General Exam Comments Initial Comments: General: Appears in no acute distress. HEAD: Normal with no signs of head trauma. EYES: PERRLA, EOMI, conjunctiva normal, no discharge. ENT: Hearing grossly intact, normal oropharynx. RESPIRATORY: Clear breath sounds bilaterally. No wheezes, rales, or rhonchi. C/V: Regular rate and rhythm. S1 and S2 auscultated, no edema, peripheral pulses 2+ and intact throughout ABD: Abdomen soft, nondistended. Patient's mother tender to palpation primarily in left lower quadrant and suprapubic region. No CVA tenderness to percussion. No flank tenderness. No rebound tenderness. No Peritoneal signs or guarding. EXT: Normal range of motion, no obvious deformity SKIN: No rashes or lesions observed on exposed skin. NEURO: Alert and oriented 4. Mildly weak in the left lower extremity which is chronic secondary to her prior CVA. Limitations: no limitations Course Vital Signs 08/19/21 08/19/21 08/19/21 15:07 19:06 20:25 Temperature 98.1 F 98 F Pulse Rate 75 70 79 Respiratory 18 18 18 Rate Blood Pressure 126/52 121/73 132/74 O2 Sat by Pulse 96 96 97 Oximetry Medical Decision Making - Medical Decision Making Based on the patient's presentation and physical exam, I'm concerned for possible acute intra-abdominal pathology for current symptoms. Specifically I'm concerned for possibility of recurrent diverticulitis. We will obtain CT imag ing in addition to abdominal laboratory studies. We will repeat the urinalysis as well. Family patient was in agreement this plan. Patient will be given morphine and 1 L fluid bolus while she is here in the department. Laboratory studies are remarkable for a mild leukocytosis of 14.2. Urinalysis is remarkable for a contaminated catch but she has a previously diagnosed UTI already on antibiotics. Remainder the laboratory studies are unremarkable. CT imaging revealed no signs of acute diverticulitis. It showed no acute intra- abdominal process. On reevaluation from patient is unremarkable at this time. I discussed the results of imaging and labs with the patient as well as family members. I believe it is safe for her to be discharged home with follow-up with her PCP. I advised him to continue to take the and about expert the previously diagnosed UTI. They were in agreement this plan. I instructed the patient to follow up with their PCP in the next 3 days . I exp lained that the patient should return to the emergency department if they experience any worsening symptoms. Strict return precautions were discussed with the patient. The patient expressed understanding of these instructions. I answered all questions that the patient had. The patient was discharged home in Good condition with their prescriptions and follow up information. - Lab Data Result diagrams: 08/19/21 17:13 08/19/21 17:13 Lab Results 08/19/21 08/19/21 08/19/21 Range/Units 17:13 17:13 18:57 WBC 14.2 H (3.8-10.6) k/uL RBC 4.95 (3.80-5.40) m/uL Hgb 12.4 (11.4-16.0) gm/dL Hct 41.8 (34.0-46.0) % MCV 84.4 (80.0-100.0) fL MCH 25.0 (25.0-35.0) pg MCHC 29.6 L (31.0-37.0) g/dL RDW 20.9 H (11.5-15.5) % Plt Count 374 (150-450) k/uL MPV 7.1 Neutrophils % 78 % Lymphocytes % 13 % Monocytes % 6 % Eosinophils % 1 % Basophils % 0 % Neutrophils # 11.1 H (1.3-7.7) k/uL Lymphocytes # 1.9 (1.0-4.8) k/uL Monocytes # 0.9 (0-1.0) k/uL Eosinophils # 0.2 (0-0.7) k/uL Basophils # 0.1 (0-0.2) k/uL Hypochromasia Moderate Anisocytosis Moderate Microcytosis Slight Sodium 140 (137-145) mmol/L Potassium 3.6 (3.5-5.1) mmol/L Chloride 104 (98-107) mmol/L Carbon Dioxide 26 (22-30) mmol/L Anion Gap 10 mmol/L BUN 21 H (7-17) mg/dL Creatinine 0.60 (0.52-1.04) mg/dL Est GFR (CKD-EPI)AfAm >90 (>60 ml/min/1.73 sqM) Est GFR (CKD-EPI)NonAf 86 (>60 ml/min/1.73 sqM) Glucose 147 H (74-99) mg/dL Calcium 9.7 (8.4-10.2) mg/dL Total Bilirubin 0.6 (0.2-1.3) mg/dL AST 16 (14-36) U/L ALT 11 (4-34) U/L Alkaline Phosphatase 74 (38-126) U/L Total Protein 6.9 (6.3-8.2) g/dL Albumin 3.9 (3.5-5.0) g/dL Amylase 40 (30-110) U/L Lipase 55 (23-300) U/L Urine Color Yellow Urine Appearance Clear (Clear) Urine pH 6.5 (5.0-8.0) Ur Specific [place] >1.050 H (1.001-1.035) Urine Protein 1+ H (Negative) Urine Glucose (UA) Negative (Negative) Urine Ketones Trace H (Negative) Urine Blood Negative (Negative) Urine Nitrite Negative (Negative) Urine Bilirubin Negative (Negative) Urine Urobilinogen <2.0 (<2.0) mg/dL Ur Leukocyte Esterase Small H (Negative) Urine RBC 4 (0-5) /hpf Urine WBC 11 H (0-5) /hpf Ur Squamous Epith Cells 14 H (0-4) /hpf Urine Bacteria Rare H (None) /hpf Urine Mucus Rare H (None) /hpf Disposition Clinical Impression: UTI (urinary tract infection), Abdominal pain Disposition: HOME SELF-CARE Condition: Good Is patient prescribed a controlled substance at d/c from ED?: No Referrals: Gen Palma MD [Primary Care Provider] - 1-2 days
[2021-08-19 20:50] VITALS: BP 132/74; PULSE 79; TEMP 98
== END 2021-08-19 19:29 | disposition home or self-care (01) ==
LOC: EC 15:03
DX: N39.0 Urinary tract infection, site not specified (principal); E11.36 Type 2 diabetes mellitus with diabetic cataract; I10 Essential (primary) hypertension; I48.91 Unspecified atrial fibrillation; E78.5 Hyperlipidemia, unspecified; K21.9 Gastro-esophageal reflux disease without esophagitis; M19.90 Unspecified osteoarthritis, unspecified site; M81.0 Age-related osteoporosis without current pathological fracture; Z79.01 Long term (current) use of anticoagulants; Z79.899 Other long term (current) drug therapy; Z85.41 Personal history of malignant neoplasm of cervix uteri; Z87.891 Personal history of nicotine dependence; Z88.8 Allergy status to other drugs, medicaments and biological substances; Z90.49 Acquired absence of other specified parts of digestive tract; Z82.49 Family history of ischemic heart disease and other diseases of the circulatory system
CPT/HCPCS: 36415; 80053; 82150; 83690; 85025; 81001; 87086; 74177; 99284; 96374; 96361 ×2; J2270; Q9967

== ENCOUNTER → 2021-09-10 | Outpatient (CLI) | payer MEDICARE, BC ==
--- NOTE | 2021-09-10 11:58 | CT ---
EXAMINATION TYPE: CT lumbar spine wo con DATE OF EXAM: 09/10/2021 COMPARISON: 07/25/2021 HISTORY: 81-year-old female M54.5, left-sided weakness, R53.1, Low back pain TECHNIQUE: Contiguous axial scanning of the lumbar spine without IV contrast. Coronal and sagittal reconstructions performed. CT DLP: 370.10 mGycm Automated exposure control for dose reduction was used. FINDINGS: Extensive sigmoid diverticulosis. Severe hypertrophic facet arthropathy mid to lower lumbar spine with degenerative grade 1, nearly gra de 2 anterolisthesis L4-L5. Redemonstrated superior endplate fracture of L1 vertebral body. Interval progression overall vertebra l body height loss, now approximately 50% height loss. Greater degree of retropulsion into the ventra l spinal canal now with at least mild spinal canal stenosis. Changes result in new mild to moderate r ight neural foraminal stenosis. At L4-L5, hypertrophic facet arthropathy with degenerative grade 1, nearly grade 2 anterolisthesis an d diffuse disc bulge eccentric towards the left. This may impinge the traversing left L5 nerve root. Overall mild spinal canal stenosis and moderate to severe left neural foraminal stenosis. IMPRESSION: 1. REDEMONSTRATED SUBACUTE SUPERIOR ENDPLATE FRACTURE OF L1. THERE HAS BEEN INTERVAL PROGRESSION IN O VERALL VERTEBRAL BODY HEIGHT LOSS, NOW APPROXIMATELY 50% LOSS OF HEIGHT. PROGRESSION IN THE DEGREE OF RETROPULSION NOW WITH AT LEAST MILD SPINAL CANAL STENOSIS. RESULTANT NEW MILD TO MODERATE RIGHT NEUR AL FORAMINAL STENOSIS HERE AT T12-L1. 2. SEVERE HYPERTROPHIC FACET ARTHROPATHY AT L4-L5 WITH GRADE 1, NEARLY GRADE 2 ANTEROLISTHESIS REDEMO NSTRATED. DISC HERNIATION HERE IS ALSO REDEMONSTRATED, ECCENTRIC TOWARDS THE LEFT CONTRIBUTING TO A M ILD SPINAL CANAL STENOSIS AND LIKELY WITH IMPINGEMENT OF THE TRAVERSING LEFT L5 NERVE. MODERATE TO SE SOLANGE LEFT NEURAL FORAMINAL STENOSIS HERE.
== END | disposition home or self-care (01) ==
LOC: RADCTMAIN 09:48
PROVIDERS: ATTEND Psychiatry & Neurology Neurology
DX: S32.019A Unspecified fracture of first lumbar vertebra, initial encounter for closed fracture (principal); M48.061 Spinal stenosis, lumbar region without neurogenic claudication; M46.96 Unspecified inflammatory spondylopathy, lumbar region; X58.XXXA Exposure to other specified factors, initial encounter
CPT/HCPCS: 72131

== ENCOUNTER → 2021-09-10 | Outpatient (CLI) | payer MEDICARE, BC ==
[2021-09-10 10:26] LABS: African American GFR (CKD) >90 (>60 ml/min/1.73 sqM); Blood Urea Nitrogen 16 mg/dL (7-17); Non-African American GFR(CKD) 87 (>60 ml/min/1.73 sqM)
--- NOTE | 2021-09-10 11:51 | CT ---
EXAMINATION TYPE: CT chest w con DATE OF EXAM: 09/10/2021 COMPARISON: Head CT 01/15/[address] chest 05/01/2017 HISTORY: 81-year-old female R59.0, Enlarged lymph nodes TECHNIQUE: Contiguous axial scanning of the chest after the administration of 100 mL of Isovue 300. Coronal/sagittal reconstructions performed. CT DLP: 309.5mGycm. Automatic exposure control utilized for a dose reduction. FINDINGS: Heart borderline enlarged without pericardial effusion. Dense mitral annular calcifications are prese nt. Extensive coronary artery calcifications are present. Aorta normal caliber with mild atherosclerotic arch calcifications in dimension arch vessel branching anatomy. Stable 1.2 cm precarinal lymph node. Calcified lymph nodes right hilum compatible with prior granulom atous disease. Otherwise, no thoracic lymphadenopathy by CT size criteria. Left anterior chest wall pacemaker generator with right ventricular lead. Numerous calcified granulomas right lower lobe. Right apical pleural-parenchymal scarring. Mild depen dent atelectasis. No consolidation or pleural effusion. Visualized upper abdomen shows a couple cysts of the left kidney measuring up to 2.0 cm. Moderate ath erosclerotic calcifications throughout the abdominal aorta. 1.8 cm cyst left liver lobe. Numerous araceli cified granulomas in the spleen. Left-sided colonic diverticulosis. Bones: [facility] in the lower thoracic spine. Superior endplate deformity L2 with retropulsion into the ve ntral spinal canal. Overall height loss has progressed from 07/25/2021. Lumbar spine reported separat harjeet. IMPRESSION: 1. A mildly enlarged 1.2 cm precarinal lymph node remains unchanged. Findings of prior granulomatous disease. No new thoracic lymphadenopathy seen. 2. Chronic interstitial changes. No acute pulmonary process. 3. Partially visualized left-sided colonic diverticulosis. 4. Superior endplate fracture of L2 noted. Lumbar spine reported separately.
== END ==
LOC: RADCTMAIN 09:40
PROVIDERS: ATTEND Internal Medicine Hematology & Oncology
DX: S32.029A Unspecified fracture of second lumbar vertebra, initial encounter for closed fracture (principal); K57.30 Diverticulosis of large intestine without perforation or abscess without bleeding; X58.XXXA Exposure to other specified factors, initial encounter
CPT/HCPCS: 82565; 84520; 71260; 36415; Q9967

== ENCOUNTER 2021-11-18 10:25 | Inpatient (IN) | payer MEDICARE, BC ==
[2021-11-18 11:14] LABS: Albumin 3.8 g/dL (3.5-5.0); Calcium 9.8 mg/dL (8.4-10.2); Total Bilirubin 1.2 mg/dL (0.2-1.3); Total Protein 6.8 g/dL (6.3-8.2)
[2021-11-18 11:17] LABS: INR 1.3 (<1.2); Partial Thromboplastin Time 27.1 sec (22.0-30.0); Prothrombin Time 13.6 sec (9.0-12.0)
[2021-11-18 11:23] LABS: Potassium 3.3 mmol/L (3.5-5.1)
[2021-11-18 11:24] LABS: Magnesium 1.4 mg/dL (1.6-2.3)
[2021-11-18 11:25] LABS: Anisocytosis Slight; Basophils # (A) 0.1 k/uL (0-0.2); Basophils % (A) 0 %; Eosinophils % (A) 0 %; HCT 42.6 % (34.0-46.0); HGB 13.7 gm/dL (11.4-16.0); Lymphocytes # (A) 1.2 k/uL (1.0-4.8); Lymphocytes % (A) 7 %; MCH 29.2 pg (25.0-35.0); MCHC 32.3 g/dL (31.0-37.0); MCV 90.4 fL (80.0-100.0); Mean Platelet Volume 8.5; Monocytes % (A) 6 %; Neutrophils # (A) 14.6 k/uL (1.3-7.7); Neutrophils % (A) 86 %; Platelet Count 253 k/uL (150-450); RBC 4.71 m/uL (3.80-5.40); RDW 16.6 % (11.5-15.5); WBC 16.9 k/uL (3.8-10.6)
--- NOTE | 2021-11-18 11:31 | ED ---
General Adult HPI - General Chief complaint: Fall Stated complaint: fALL/ BACK PAIN Time Seen by Provider: 11/18/21 10:36 Source: patient, family, EMS, RN notes reviewed, old records reviewed Mode of arrival: EMS Limitations: physical limitation - History of Present Illness Initial comments: 81-year-old female who presents with multiple falls. Patient has history of previous CVA with some residual left-sided weakness. She states she has fallen many times over the past month. Over the past 24 hours she felt 4 times. She did have some pain in her low back and left hip. She also had head injury without loss consciousness. This occurred yesterday evening and she is on anticoagulation for history of atrial fibrillation. She is accompanied by her daughter. She currently lives at assisted living facility. - Related Data Home Medications Medication Instructions Recorded Confirmed Atorvastatin [Lipitor] 40 mg PO HS 04/05/17 11/18/21 Acetaminophen [Tylenol 8 Hour] 650 mg PO Q6H PRN 06/13/21 11/18/21 Ferrous Sulfate [Feosol] 325 mg PO DAILY 06/13/21 11/18/21 carvediloL [Coreg] 6.25 mg PO BID 06/13/21 11/18/21 lisinopriL [Zestril] 20 mg PO HS 06/13/21 11/18/21 C,E,Zinc,Copper 11/Cndzu0o/Lut 1 cap PO DAILY 08/19/21 11/18/21 [Ocuvite Adult 50 Plus Softgel] Famotidine [Pepcid] 20 mg PO DAILY 08/19/21 11/18/21 Rivaroxaban [Xarelto] 15 mg PO W/SUPPER 08/19/21 11/18/21 hydrALAZINE HCL [Apresoline] 100 mg PO TID 08/19/21 11/18/21 traMADol HCl [Ultram] 50 - 100 mg PO Q8H PRN 08/19/21 11/18/21 Amoxic-Pot Clav 875-125Mg 1 tab PO BID 11/18/21 11/18/21 [Augmentin 875-125] Spironolactone [Aldactone] 50 mg PO DAILY 11/18/21 11/18/21 Allergies Allergy/AdvReac Type Severity Reaction Status Date / Time amlodipine Allergy Anaphylaxis Verified 11/18/21 12:04 isosorbide mononitrate Allergy Rash/Hives Verified 11/18/21 12:04 [From Imdur] Review of Systems ROS Statement: Those systems with pertinent positive or pertinent negative responses have been documented in the HPI. ROS Other: All systems not noted in ROS Statement are negative. Past Medical History Past Medical History: Atrial Fibrillation, Cancer, CVA/TIA, Diabetes Mellitus, GERD/Reflux, Hyperlipidemia, Hypertension, Osteoarthritis (OA), Syncope Additional Past Medical History / Comment(s): Osteoporosis, hiatal hernia, diverticulosis, polyps, cervical cancer, DJD, recent hospitalization for small bowel obstruction & had surgery in February 2021. History of Any Multi-Drug Resistant Organisms: None Reported Past Surgical History: Back Surgery, Bowel Resection, Heart Catheterization, Hysterectomy, Pacemaker Additional Past Surgical History / Comment(s): EGD, Colonoscopy, bilateral cataract removed, "fatty tumor" removed from her back, exp. laparotomy w/small bowel resection Past Anesthesia/Blood Transfusion Reactions: No Reported Reaction, Motion Sickness Additional Past Anesthesia/Blood Transfusion Reaction / Comment(s): Pt has never recieved blood. SON "CODED" POST HIP REPLACEMENT Past Psychological History: Anxiety Smoking Status: Former smoker Past Alcohol Use History: None Reported Past Drug Use History: None Reported - Past Family History Father Family Medical History: Myocardial Infarction (PR) Additional Family Medical History / Comment(s): Father of a PR at age 76yrs. Mother Family Medical History: CVA/TIA Additional Family Medical History / Comment(s): Mother had a CVA at age 88yrs. She at age 92yrs. General Exam Limitations: physical limitation General appearance: alert, in no apparent distress Head exam: Absent: atraumatic (Right parietal occipital hematoma, no laceration.) Eye exam: Present: normal appearance, PERRL ENT exam: Present: normal exam Neck exam: Present: normal inspection, full ROM. Absent: tenderness, meningismus Respiratory exam: Present: normal lung sounds bilaterally. Absent: respiratory distress, wheezes Cardiovascular Exam: Present: regular rate, irregular rhythm GI/Abdominal exam: Present: soft. Absent: distended, tenderness, guarding, rebound Extremities exam: Present: normal inspection, full ROM, normal capillary refill. Absent: pedal edema Neurological exam: Present: alert, oriented X3 Psychiatric exam: Present: normal affect, normal mood. Absent: depressed Skin exam: Present: warm, dry, intact. Absent: cyanosis, diaphoretic Course Vital Signs 11/18/21 11/18/21 10:27 11:01 Temperature 98 F Pulse Rate 82 87 Respiratory 16 18 Rate Blood Pressure 94/55 123/60 O2 Sat by Pulse 98 99 Oximetry EKG Findings - EKG Comments: EKG Findings:: EKG: Atrial flutter with variable AV block rate of 89, QRS duration 80, QTc [address] segment elevation, T-wave inversion in the lateral precordial leads. Medical Decision Making - Medical Decision Making 81-year-old female presenting with generalized weakness and multiple falls, history of CVA on anticoagulation. Head CT performed negative for acute intracranial pathology, previous stroke. I did perform x-rays of the lumbar spine and pelvis which show an old L1 compression fracture no acute findings. She has a leukocytosis which I suspect is secondary to the UTI that she is currently being treated for with Augmentin. She has some mild left leg abnormalities at potassium 3.3, magnesium 1.4 these are replaced in addition to IV fluid. She will be admitted to [facility], [facility], Dr. Elizalde. - Lab Data Result diagrams: 11/18/21 10:50 11/18/21 10:50 Lab Results 11/18/21 11/18/21 11/18/21 Range/Units 10:50 10:50 10:50 WBC 16.9 H (3.8-10.6) k/uL RBC 4.71 (3.80-5.40) m/uL Hgb 13.7 (11.4-16.0) gm/dL Hct 42.6 (34.0-46.0) % MCV 90.4 (80.0-100.0) fL MCH 29.2 (25.0-35.0) pg MCHC 32.3 (31.0-37.0) g/dL RDW 16.6 H (11.5-15.5) % Plt Count 253 (150-450) k/uL MPV 8.5 Neutrophils % 86 % Lymphocytes % 7 % Monocytes % 6 % Eosinophils % 0 % Basophils % 0 % Neutrophils # 14.6 H (1.3-7.7) k/uL Lymphocytes # 1.2 (1.0-4.8) k/uL Monocytes # 1.0 (0-1.0) k/uL Eosinophils # 0.0 (0-0.7) k/uL Basophils # 0.1 (0-0.2) k/uL Anisocytosis Slight PT 13.6 H (9.0-12.0) sec INR 1.3 H (<1.2) APTT 27.1 (22.0-30.0) sec Sodium (137-145) mmol/L Potassium (3.5-5.1) mmol/L Chloride (98-107) mmol/L Carbon Dioxide (22-30) mmol/L Anion Gap mmol/L BUN (7-17) mg/dL Creatinine (0.52-1.04) mg/dL Est GFR (CKD-EPI)AfAm (>60 ml/min/1.73 sqM) Est GFR (CKD-EPI)NonAf (>60 ml/min/1.73 sqM) Glucose (74-99) mg/dL Plasma Lactic Acid Manolo (0.7-2.0) mmol/L Calcium (8.4-10.2) mg/dL Magnesium (1.6-2.3) mg/dL Total Bilirubin (0.2-1.3) mg/dL AST (14-36) U/L ALT (4-34) U/L Alkaline Phosphatase (38-126) U/L Total Protein (6.3-8.2) g/dL Albumin (3.5-5.0) g/dL Urine Color Yellow Urine Appearance Clear (Clear) Urine pH 7.0 (5.0-8.0) Ur Specific [place] 1.017 (1.001-1.035) Urine Protein 1+ H (Negative) Urine Glucose (UA) Negative (Negative) Urine Ketones Trace H (Negative) Urine Blood Negative (Negative) Urine Nitrite Negative (Negative) Urine Bilirubin Negative (Negative) Urine Urobilinogen 2.0 (<2.0) mg/dL Ur Leukocyte Esterase Negative (Negative) Urine RBC 2 (0-5) /hpf Urine WBC 3 (0-5) /hpf Ur Squamous Epith Cells <1 (0-4) /hpf Urine Mucus Rare H (None) /hpf 11/18/21 11/18/21 Range/Units 10:50 10:50 WBC (3.8-10.6) k/uL RBC (3.80-5.40) m/uL Hgb (11.4-16.0) gm/dL Hct (34.0-46.0) % MCV (80.0-100.0) fL MCH (25.0-35.0) pg MCHC (31.0-37.0) g/dL RDW (11.5-15.5) % Plt Count (150-450) k/uL MPV Neutrophils % % Lymphocytes % % Monocytes % % Eosinophils % % Basophils % % Neutrophils # (1.3-7.7) k/uL Lymphocytes # (1.0-4.8) k/uL Monocytes # (0-1.0) k/uL Eosinophils # (0-0.7) k/uL Basophils # (0-0.2) k/uL Anisocytosis PT (9.0-12.0) sec INR (<1.2) APTT (22.0-30.0) sec Sodium 140 (137-145) mmol/L Potassium 3.3 L (3.5-5.1) mmol/L Chloride 104 (98-107) mmol/L Carbon Dioxide 27 (22-30) mmol/L Anion Gap 9 mmol/L BUN 20 H (7-17) mg/dL Creatinine 0.74 (0.52-1.04) mg/dL Est GFR (CKD-EPI)AfAm 89 (>60 ml/min/1.73 sqM) Est GFR (CKD-EPI)NonAf 77 (>60 ml/min/1.73 sqM) Glucose 135 H (74-99) mg/dL Plasma Lactic Acid Manolo 1.9 (0.7-2.0) mmol/L Calcium 9.8 (8.4-10.2) mg/dL Magnesium 1.4 L (1.6-2.3) mg/dL Total Bilirubin 1.2 (0.2-1.3) mg/dL AST 27 (14-36) U/L ALT 18 (4-34) U/L Alkaline Phosphatase 45 (38-126) U/L Total Protein 6.8 (6.3-8.2) g/dL Albumin 3.8 (3.5-5.0) g/dL Urine Color Urine Appearance (Clear) Urine pH (5.0-8.0) Ur Specific [place] (1.001-1.035) Urine Protein (Negative) Urine Glucose (UA) (Negative) Urine Ketones (Negative) Urine Blood (Negative) Urine Nitrite (Negative) Urine Bilirubin (Negative) Urine Urobilinogen (<2.0) mg/dL Ur Leukocyte Esterase (Negative) Urine RBC (0-5) /hpf Urine WBC (0-5) /hpf Ur Squamous Epith Cells (0-4) /hpf Urine Mucus (None) /hpf Disposition Clinical Impression: Urinary tract infection, Dehydration, Hypomagnesemia Disposition: ADMITTED IP TO THIS HOSP Condition: Stable Is patient prescribed a controlled substance at d/c from ED?: No Referrals: Gen Palma MD [Primary Care Provider] - 1-2 days Decision to Admit Reason: Admit from EC Decision Date: 11/18/21 Decision Time: 13:44
--- NOTE | 2021-11-18 11:36 | CT ---
EXAMINATION TYPE: CT brain lucyine jamie con DATE OF EXAM: 11/18/2021 COMPARISON: CT brain from May 28, 2021 HISTORY: FREQUENT FALLS, 4 IN LAST DAY with neck pain and altered mental status. History of throat ca ncer. CT DLP: 1291.3 mGycm. Automated Exposure Control for Dose Reduction was Utilized. TECHNIQUE: CT scan of the head and cervical spine are performed without contrast. FINDINGS: There is no acute intracranial hemorrhage or midline shift identified. Mild ventricular a nd sulcal prominence. Moderate to severe low-attenuation in the deep and periventricular white matter . Old infarct right frontal lobe superiorly redemonstrated. Old infarct inferior left occipital lobe now present progressed from prior. The calvarium is intact. There is new tiny left occipital acute s calp hematoma axial image 44. The globes are intact and the visualized sinuses are clear. Cervical spine is visualized in its entirety from C1 through upper thoracic levels and demonstrates s light grade 1 anterolisthesis C6 on C7 without evidence of acute fracture or dislocation. Prevertebr al soft tissue appears within normal limits. The C1-C2 articulation is within normal limits on the c oronal images. Vertebral body heights are maintained. Mild to moderate disc space narrowing C6-C7 lev el. Axial images show multilevel uncovertebral and facet degenerative changes contributing to multile anjana bilateral neural foraminal narrowing more prominent on the right. Thyroid gland appears within no rmal limits. Lung apices show no pneumothorax bilaterally. There is partial visualization of pacemake r wire. IMPRESSION: 1. There is no acute fracture or dislocation evident in the cervical spine. 2. No acute intracranial hemorrhage or midline shift is seen.
--- NOTE | 2021-11-18 11:41 | XR ---
EXAMINATION TYPE: XR pelvis AP view DATE OF EXAM: 11/18/2021 CLINICAL HISTORY: Slip and fall injury with pain. TECHNIQUE: A single AP view of the pelvis is obtained. COMPARISON: CT abdomen and pelvis August 19, 2021 FINDINGS: Evaluation suboptimal as there is lucency from overlying bowel gas in addition patient is r otated. There is no acute displaced fracture evident in the pelvis. [id number] axial joint spac e loss in both hips. Pubic symphysis is intact. Right sacroiliac joint remains within normal limits. Suboptimal evaluation on the left. Moderate overlying arterial vascular calcification is present. IMPRESSION: There is no acute displaced fracture in the pelvis.
--- NOTE | 2021-11-18 11:44 | XR ---
EXAMINATION TYPE: XR lumbosacral spine min 4V DATE OF EXAM: 11/18/2021 CLINICAL HISTORY: Fall injury with pain. TECHNIQUE: Frontal, lateral, and oblique images of the lumbar spine are obtained. COMPARISON: CT lumbar spine September 10, 2021 FINDINGS: Osseous structures are demineralized which is noted to lower radiographic sensitivity. Mod erate compression type fracture at L1 level redemonstrated. Vertebral body heights otherwise maintain ed. Persistent grade 1 anterolisthesis L4 and L5. No obvious acute displaced fracture is seen. Promin ent facet arthropathy lower lumbar spine redemonstrated. Oblique images appear within normal limits. Moderate overlying arterial vascular calcification is redemonstrated. IMPRESSION: As above.
[2021-11-18] MEDS ORDERED: MAGNESIUM SULFATE-D5W PMX 1 GM in DEXTROSE/WATER 1 100ML.BAG IVPB ONE (12:09)
[2021-11-18 13:00] LABS: Appearance,Urine Clear (Clear); Bilirubin,Urine Negative (Negative); Blood,Urine Negative (Negative); Color,Urine Yellow; Glucose,Urine (UA) Negative (Negative); Ketones,Urine Trace (Negative); Leukocyte Esterase,Urine Negative (Negative); Mucus,Urine Rare /hpf; Nitrite,Urine Negative (Negative); Protein,Urine 1+ (Negative); RBC,Urine 2 /hpf (0-5); Specific Gravity,Urine 1.017 (1.001-1.035); Squamous Epithelial Cell,Urine <1 /hpf (0-4); WBC,Urine 3 /hpf (0-5)
[2021-11-18] MEDS ORDERED: POTASSIUM CHLORIDE ER 20 MEQ TAB.ER PO STA (13:27)
[2021-11-18] MEDS ORDERED: NALOXONE 0.4 MG/ML 1 ML VIAL IV PRN ×2 (13:34→14:03)
[2021-11-18] MEDS: SODIUM CHLORIDE 0.9% 1,000 ML IV SCH (14:01)
[2021-11-18] MEDS ORDERED: ONDANSETRON 4 MG/2 ML VIAL IVP PRN (14:03)
[2021-11-18] MEDS ORDERED: MAG HYDROX/AL HYDROX/SIMETH 30 ML CUP PO PRN (14:03)
[2021-11-18] MEDS ORDERED: LOPERAMIDE 2 MG CAP PO PRN (14:03)
--- NOTE | 2021-11-18 14:11 | P.HPIM ---
History of Present Illness H&P Date: 11/18/21 81-year-old female with past medical history of recurrent UTIs history of CVA hypertension admitted to the hospital for a fall patient has not been feeling well for the last few days the patient has been treated for UTIs as an outpatient Patient fell and hit her head denies any chest pain or shortness of breath at this time Patient states that she still feels weak Constitutional: No acute distress, conversant, pleasant Eyes: Anicteric sclerae, moist conjunctiva, no lid-lag PERRLA ENMT: NC/AT Oropharynx clear, no erythema, exudates Neck: Supple, FROM, no masses, or JVD No carotid bruits No thyromegaly Lungs: Clear to auscultation Clear to percussion Normal respiratory effort, no accessory muscle use Cardiovascular: Heart regular in rate and rhythm, No murmurs, gallops, or rubs No peripheral edema Abdominal: Soft Nontender, no guarding, rebound or rigidity Abdomen moving with respiration Normoactive bowel sounds No hepatomegaly, No splenomegaly No palpable mass No abdominal wall hernia noted Skin: Normal temperature, tone, texture, turgor No induration No subcutaneous nodules No rash, lesions No ulcers Extremities: No digital cyanosis No clubbing Pedal pulses intact and symmetrical Radial pulses intact and symmetrical Normal gait and station No calf tenderness Psychiatric:Alert and oriented to person, place and time Appropriate affect Intact judgement Neuro: Muscles Strength 5/5 in all 4 extremities Sensation to light touch grossly present throughout Cranial nerves II-XII grossly intact No focal sensory deficits Assessment and plan Recurrent UTI since the patient failed outpatient therapy will start the patient on IV Rocephin Dehydration could've the patient on IV hydration and hold lisinopril and diuretics Hypertension History of pacemaker placement will not be able to do an MRI of the brain Generalized weakness Leukocytosis exact etiology not clear could be due to UTI we'll monitor closely continue patient on Rocephin Consult physical therapy May need rehab upon discharge Past Medical History Past Medical History: Atrial Fibrillation, Cancer, CVA/TIA, Diabetes Mellitus, GERD/Reflux, Hyperlipidemia, Hypertension, Osteoarthritis (OA), Syncope Additional Past Medical History / Comment(s): Osteoporosis, hiatal hernia, diverticulosis, polyps, cervical cancer, DJD, recent hospitalization for small bowel obstruction & had surgery in February 2021. History of Any Multi-Drug Resistant Organisms: None Reported Past Surgical History: Back Surgery, Bowel Resection, Heart Catheterization, Hysterectomy, Pacemaker Additional Past Surgical History / Comment(s): EGD, Colonoscopy, bilateral cataract removed, "fatty tumor" removed from her back, exp. laparotomy w/small bowel resection Past Anesthesia/Blood Transfusion Reactions: No Reported Reaction, Motion Sickness Additional Past Anesthesia/Blood Transfusion Reaction / Comment(s): Pt has never recieved blood. SON "CODED" POST HIP REPLACEMENT Past Psychological History: Anxiety Smoking Status: Former smoker Past Alcohol Use History: None Reported Past Drug Use History: None Reported - Past Family History Father Family Medical History: Myocardial Infarction (PA) Additional Family Medical History / Comment(s): Father of a PA at age 76yrs. Mother Family Medical History: CVA/TIA Additional Family Medical History / Comment(s): Mother had a CVA at age 88yrs. She at age 92yrs. Medications and Allergies Home Medications Medication Instructions Recorded Confirmed Type Atorvastatin [Lipitor] 40 mg PO HS 04/05/17 11/18/21 History Acetaminophen [Tylenol 8 Hour] 650 mg PO Q6H PRN 06/13/21 11/18/21 History Ferrous Sulfate [Feosol] 325 mg PO DAILY 06/13/21 11/18/21 History carvediloL [Coreg] 6.25 mg PO BID 06/13/21 11/18/21 History lisinopriL [Zestril] 20 mg PO HS 06/13/21 11/18/21 History C,E,Zinc,Copper 11/Qhfsp7a/Lut 1 cap PO DAILY 08/19/21 11/18/21 History [Ocuvite Adult 50 Plus Softgel] Famotidine [Pepcid] 20 mg PO DAILY 08/19/21 11/18/21 History Rivaroxaban [Xarelto] 15 mg PO W/SUPPER 08/19/21 11/18/21 History hydrALAZINE HCL [Apresoline] 100 mg PO TID 08/19/21 11/18/21 History traMADol HCl [Ultram] 50 - 100 mg PO Q8H PRN 08/19/21 11/18/21 History Amoxic-Pot Clav 875-125Mg 1 tab PO BID 11/18/21 11/18/21 History [Augmentin 875-125] Spironolactone [Aldactone] 50 mg PO DAILY 11/18/21 11/18/21 History Allergies Allergy/AdvReac Type Severity Reaction Status Date / Time amlodipine Allergy Anaphylaxis Verified 11/18/21 12:04 isosorbide mononitrate Allergy Rash/Hives Verified 11/18/21 12:04 [[address] [facility]] Physical Exam Vitals: Vital Signs Temp Pulse Resp BP Pulse Ox 11/18/21 11:01 87 18 123/60 99 11/18/21 10:27 98 F 82 16 94/55 98 Intake and Output 11/17/21 11/18/21 11/18/21 22:59 06:59 14:59 Other: Weight 51.256 kg Results CBC & Chem 7: 11/18/21 10:50 11/18/21 10:50 Labs: Abnormal Lab Results - Last 24 Hours (Table) 11/18/21 11/18/21 11/18/21 Range/Units 10:50 10:50 10:50 WBC 16.9 H (3.8-10.6) k/uL RDW 16.6 H (11.5-15.5) % Neutrophils # 14.6 H (1.3-7.7) k/uL PT 13.6 H (9.0-12.0) sec INR 1.3 H (<1.2) Potassium (3.5-5.1) mmol/L BUN (7-17) mg/dL Glucose (74-99) mg/dL Magnesium (1.6-2.3) mg/dL Urine Protein 1+ H (Negative) Urine Ketones Trace H (Negative) Urine Mucus Rare H (None) /hpf 11/18/21 Range/Units 10:50 WBC (3.8-10.6) k/uL RDW (11.5-15.5) % Neutrophils # (1.3-7.7) k/uL PT (9.0-12.0) sec INR (<1.2) Potassium 3.3 L (3.5-5.1) mmol/L BUN 20 H (7-17) mg/dL Glucose 135 H (74-99) mg/dL Magnesium 1.4 L (1.6-2.3) mg/dL Urine Protein (Negative) Urine Ketones (Negative) Urine Mucus (None) /hpf
[2021-11-18] MEDS: HYDROcodone/APAP 5-325MG 1 EACH TAB PO PRN (14:54)
[2021-11-18] MEDS: RIVAROXABAN 15 MG TAB PO SCH (18:01)
[2021-11-18 21:10] LABS: Glucose,Whole Blood 111 mg/dL (75-99)
[2021-11-18] MEDS: carvediloL 6.25 MG TAB PO SCH (22:14)
[2021-11-18] MEDS: ATORVASTATIN 40 MG TAB PO SCH (22:14)
[2021-11-19 06:53] LABS: Glucose,Whole Blood 86 mg/dL (75-99)
--- NOTE | 2021-11-19 08:52 | P.PN ---
Subjective Progress Note Date: 11/19/21 Patient continues to be weak no chest pain no shortness of breath the day 81-year-old female with past medical history of recurrent UTIs history of CVA hypertension admitted to the hospital for a fall patient has not been feeling well for the last few days the patient has been treated for UTIs as an outpatient Patient fell and hit her head denies any chest pain or shortness of breath at this time Patient states that she still feels weak Constitutional: No acute distress, conversant, pleasant Eyes: Anicteric sclerae, moist conjunctiva, no lid-lag PERRLA ENMT: NC/AT Oropharynx clear, no erythema, exudates Neck: Supple, FROM, no masses, or JVD No carotid bruits No thyromegaly Lungs: Clear to auscultation Clear to percussion Normal respiratory effort, no accessory muscle use Cardiovascular: Heart regular in rate and rhythm, No murmurs, gallops, or rubs No peripheral edema Abdominal: Soft Nontender, no guarding, rebound or rigidity Abdomen moving with respiration Normoactive bowel sounds No hepatomegaly, No splenomegaly No palpable mass No abdominal wall hernia noted Skin: Normal temperature, tone, texture, turgor No induration No subcutaneous nodules No rash, lesions No ulcers Extremities: No digital cyanosis No clubbing Pedal pulses intact and symmetrical Radial pulses intact and symmetrical Normal gait and station No calf tenderness Psychiatric:Alert and oriented to person, place and time Appropriate affect Intact judgement Neuro: Muscles Strength 5/5 in all 4 extremities Sensation to light touch grossly present throughout Cranial nerves II-XII grossly intact No focal sensory deficits Assessment and plan Recurrent UTI since the patient failed outpatient therapy will start the patient on IV Rocephin Dehydration could've the patient on IV hydration and hold lisinopril and diuretics Hypertension History of pacemaker placement will not be able to do an MRI of the brain Generalized weakness Leukocytosis exact etiology not clear could be due to UTI we'll monitor closely continue patient on Rocephin Minimal elevation in troponins will consult cardiology Consult physical therapy May need rehab upon discharge Discharge hopefully in a day or 2 as per clinical improvement Objective - Vital Signs Vital signs: Vital Signs Temp 98.4 F 11/19/21 07:15 Pulse 85 11/19/21 07:15 Resp 16 11/19/21 07:15 BP 161/72 11/19/21 07:15 Pulse Ox 95 11/19/21 07:15 Intake & Output 11/18/21 11/19/21 11/19/21 18:59 06:59 18:59 Weight 51.256 kg Other: # Voids 1 - Labs CBC & Chem 7: 11/18/21 10:50 11/18/21 10:50 Labs: Abnormal Lab Results - Last 24 Hours (Table) 11/18/21 11/18/21 11/18/21 Range/Units 10:50 10:50 10:50 WBC 16.9 H (3.8-10.6) k/uL RDW 16.6 H (11.5-15.5) % Neutrophils # 14.6 H (1.3-7.7) k/uL PT 13.6 H (9.0-12.0) sec INR 1.3 H (<1.2) Potassium (3.5-5.1) mmol/L BUN (7-17) mg/dL Glucose (74-99) mg/dL POC Glucose (mg/dL) (75-99) mg/dL Magnesium (1.6-2.3) mg/dL Troponin I (0.000-0.034) ng/mL Urine Protein 1+ H (Negative) Urine Ketones Trace H (Negative) Urine Mucus Rare H (None) /hpf 11/18/21 11/18/21 11/18/21 Range/Units 10:50 14:20 18:08 WBC (3.8-10.6) k/uL RDW (11.5-15.5) % Neutrophils # (1.3-7.7) k/uL PT (9.0-12.0) sec INR (<1.2) Potassium 3.3 L (3.5-5.1) mmol/L BUN 20 H (7-17) mg/dL Glucose 135 H (74-99) mg/dL POC Glucose (mg/dL) (75-99) mg/dL Magnesium 1.4 L (1.6-2.3) mg/dL Troponin I 0.075 H* 0.051 H* (0.000-0.034) ng/mL Urine Protein (Negative) Urine Ketones (Negative) Urine Mucus (None) /hpf 11/18/21 Range/Units 21:08 WBC (3.8-10.6) k/uL RDW (11.5-15.5) % Neutrophils # (1.3-7.7) k/uL PT (9.0-12.0) sec INR (<1.2) Potassium (3.5-5.1) mmol/L BUN (7-17) mg/dL Glucose (74-99) mg/dL POC Glucose (mg/dL) 111 H (75-99) mg/dL Magnesium (1.6-2.3) mg/dL Troponin I (0.000-0.034) ng/mL Urine Protein (Negative) Urine Ketones (Negative) Urine Mucus (None) /hpf
[2021-11-19 09:30] LABS: HCT 35.1 % (37.2-46.3); MCH 28.2 pg (27.0-32.0); MCHC 31.3 g/dL (32.0-37.0); Mean Platelet Volume 11.7 fL (9.5-12.2); NRBC Per 100 WBC 0 /100 WBCS (0.0-0.0); Platelet Count 233 X 10*3/uL (140-440); RDW 16.5 % (11.5-14.5); WBC 18.49 X 10*3/uL (4.50-10.00)
--- NOTE | 2021-11-19 09:36 | ECHOF ---
Referral Reason:Elevated troponin MEASUREMENTS -------- HEIGHT: 152.4 cm WEIGHT: 51.3 kg BP: RVIDd: 2.4 cm (< 3.3) IVSd: 1.1 cm (0.6 - 1.1) LVIDd: 3.7 cm (3.9 - 5.3) LVPWd: 1.2 cm (0.6 - 1.1) IVSs: 1.5 cm LVIDs: 2.9 cm LVPWs: 1.5 cm LA Diam: 3.7 cm (2.7 - 3.8) Ao Diam: 2.5 cm (2.0 - 3.7) AV Cusp: 1.8 cm (1.5 - 2.6) LA Diam: 3.9 cm (2.7 - 3.8) MV EXCURSION: 12.126 mm (> 18.000) MV EF SLOPE: 42 mm/s (70 - 150) EPSS: 0.6 cm RAP: 5.00 mmHg RVSP: 37.13 mmHg FINDINGS -------- Paced rhythm. This was a technically good study. The left ventricular size is normal. Left ventricular wall thickness is normal. Overall left vent ricular systolic function is low-normal with, an EF between 50 - 55 %. The right ventricle is normal in size. Normal LA size by volume 22+/-6 ml/m2. The right atrial size is normal. There is mild aortic valve sclerosis. There is mild aortic regurgitation. Mild mitral regurgitation is present. Mild tricuspid regurgitation present. Right ventricular systolic pressure is normal at < 35 mmHg. There is no pulmonic regurgitation present. There is no pericardial effusion. CONCLUSIONS -------- 1. The left ventricular size is normal. 2. Left ventricular wall thickness is normal. 3. Overall left ventricular systolic function is low-normal with, an EF between 50 - 55 %. 4. The right ventricle is normal in size. 5. Normal LA size by volume 22+/-6 ml/m2. 6. The right atrial size is normal. 7. There is mild aortic valve sclerosis. 8. There is mild aortic regurgitation. 9. Mild mitral regurgitation is present. 10. Mild tricuspid regurgitation present. 11. There is no pulmonic regurgitation present. 12. There is no pericardial effusion. ASSOCIATE DEAN: Alexandria Zeng RDCS
[2021-11-19 09:37] LABS: African American GFR (CKD) 101.3 (60.0-200.0); Albumin 3.1 g/dL (3.8-4.9); Albumin/Globulin Ratio 1.51 (1.60-3.17); Anion Gap 10.8 mmol/L (10.00-18.00); BUN/Creat Ratio 24.78 Ratio (12.00-20.00); Blood Urea Nitrogen 13.9 mg/dL (9.0-27.0); Calcium 8.5 mg/dL (8.7-10.3); Globulin 2.1 g/dL (1.6-3.3); Non-African American GFR(CKD) 87.4 (60.0-200.0); Total Bilirubin 0.6 mg/dL (0.30-1.20); Total Protein 5.2 g/dL (6.2-8.2)
[2021-11-19 10:24] LABS: Basophils # (A) 0.05 X 10*3/uL (0.00-0.10); Basophils % (A) 0.3 %; Eosinophils # (A) 0.04 X 10*3/uL (0.04-0.35); Eosinophils % (A) 0.2 %; Immature Grans, Automated 0.5 %; Lymphocytes # (A) 1.83 X 10*3/uL (0.90-5.00); Lymphocytes % (A) 9.9 %; Monocytes # (A) 1.54 X 10*3/uL (0.20-1.00); Monocytes % (A) 8.3 %; Neutrophils # (A) 14.94 X 10*3/uL (1.80-7.70); Neutrophils % (A) 80.8 %
[2021-11-19] MEDS: FAMOTIDINE 20 MG TAB PO SCH (10:31)
[2021-11-19] MEDS: carvediloL 12.5 MG TAB PO SCH ×2 (10:33→16:19)
[2021-11-19 11:36] LABS: Glucose,Whole Blood 106 mg/dL (75-99)
[2021-11-19] MEDS: carvediloL 6.25 MG TAB PO SCH (12:27)
--- NOTE | 2021-11-19 12:54 | P.CRDCN ---
History of Present Illness History of present illness: HISTORY OF PRESENTING ILLNESS This is a pleasant 81-year-old female past medical history significant for hypertension, hyperlipidemia, permanent atrial fibrillation, sick sinus syndrome status post single-chamber pacemaker 05/2021 CVA, type 2 diabetes, former smoker . She follows in the office with Dr. Carias. We have been asked to see in consultation for elevated troponin. Patient presents emergency department with symptoms of generalized weakness, multiple falls and diarrhea. Patient states that she is not having falls at home that she is "passing out" at home. She states "she is unsure what happens she just passes out". She denies any chest pain, shortness of breath, any focal symptoms, lightheadedness, dizziness. She currently lives in assisted living facility, she states that sometimes these events are unwitnessed. Per nursing, patient has not endorsed loss of consc iousness but just falls at home. DIAGNOSTICS -EKG reveals atrial fibrillation, PVC, heart rate 89, T wave inversion in leads V5, V6. -Telemetry tracings indicate atrial fibrillation with controlled ventricular rate, occasional PVCs. -X-ray no acute fracture of the pelvis. -CT head and cervical spine revealed no acute fracture or dislocation evident cervical spine. No acute intracranial hemorrhage or midline shift. Old infarct right frontal lobe. Old infarct anterior left occipital lobe. 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 CARDIOVASCULAR: Denies chest pain, shortness of breath, orthopnea, PND or pal pitations. RESPIRATORY: Denies cough. GASTROINTESTINAL: Denies abdominal pain, diarrhea, constipation, nausea or vomiting. MUSCULOSKELETAL: Denies myalgias. NEUROLOGIC: Denies numbness, tingling, headacbe or weakness. ENDOCRINE: Denies fatigue, weight change, polydipsia or polyurina. GENITOURINARY: Denies burning, hematuria or urgency with micturation. HEMATOLOGIC: Denies history of anemia or bleeding. PHYSICAL EXAMINATION Blood pressure 161/72, heart rate 85, afebrile, oxygen saturations 95% on room air CONSTITUTIONAL: No apparent distress. HEENT: Head is normocephalic. Pupils are equal, round. Sclerae anicteric. Mucous membranes of the mouth are moist. No JVD. No carotid bruit. CHEST EXAMINATION: Lungs are clear to auscultation. No chest wall tenderness is noted on palpation or with deep breathing. HEART EXAMINATION: Irregular rate and rhythm. S1, S2 heard. No murmurs, gallops or rub. ABDOMEN: Soft, nontender. Positive bowel sounds. EXTREMITIES: 2+ peripheral pulses, no lower extremity edema and no calf tenderness. NEUROLOGIC EXAMINATION: Patient is awake, alert and oriented x3. ASSESSMENT Elevated troponin, not consistent with acute coronary syndrome, repeat troponin negative, no acute ischemia noted on EKG. Echo with EF 50-55% Multiple falls at home, possible Syncope, rule out cardiac cause Sick sinus syndrome status post single-chamber pacemaker implantation 05/2021 Hypertension Hyperlipidemia Permanent atrial fibrillation on Xarelto Non-obstructive coronary artery disease History of prior CVA Type 2 diabetes Former smoker PLAN Repeat Troponin ordered and negative Increase carvediolol to 12.5mg BID Interrogate patient's device Continue cardiac telemetry Continue statin and Xarelto Further recommendations based on clinical course Nurse practitioner note has been reviewed by physician. Signing provider agrees with the documented findings, assessment, and plan of care. Past Medical History Past Medical History: Atrial Fibrillation, Cancer, CVA/TIA, Diabetes Mellitus, GERD/Reflux, Hyperlipidemia, Hypertension, Osteoarthritis (OA), Syncope Additional Past Medical History / Comment(s): CVA with L sided weakness, bradycardia/pacer, NIDDM type II/diet controlled since weight loss, cervical cancer with hysterectomy, recurrent UTIs/current UTI with antibiotic, diverticulitis, SBO/with bowel resection/diarrhea frequently since, osteoporosis, recent new bilateral pedal edema. History of Any Multi-Drug Resistant Organisms: None Reported Past Surgical History: Back Surgery, Bowel Resection, Heart Catheterization, Hysterectomy, Pacemaker Additional Past Surgical History / Comment(s): EGD, Colonoscopy, bilateral cataract removed, "fatty tumor" removed from her back, exp. laparotomy w/small bowel resection, EGD, colonoscopy, microlaryngoscopy with bx d/t sore throat, Past Anesthesia/Blood Transfusion Reactions: Motion Sickness Additional Past Anesthesia/Blood Transfusion Reaction / Comment(s): Pt has never recieved blood. SON "CODED" POST HIP REPLACEMENT Type of Cardiac Device: Permanent Pacemaker Device Placement Date:: 05/21/21 Smoking Status: Former smoker - Past Family History Father Family Medical History: Myocardial Infarction (SD) Additional Family Medical History / Comment(s): Father of a SD at age 76yrs. Mother Family Medical History: CVA/TIA Additional Family Medical History / Comment(s): Mother had a CVA at age 88yrs. She at age 92yrs. Medications and Allergies Home Medications Medication Instructions Recorded Confirmed Type Atorvastatin [Lipitor] 40 mg PO HS 04/05/17 11/18/21 History Acetaminophen [Tylenol 8 Hour] 650 mg PO Q6H PRN 06/13/21 11/18/21 History Ferrous Sulfate [Feosol] 325 mg PO DAILY 06/13/21 11/18/21 History carvediloL [Coreg] 6.25 mg PO BID 06/13/21 11/18/21 History lisinopriL [Zestril] 20 mg PO HS 06/13/21 11/18/21 History C,E,Zinc,Copper 11/Ctncw1n/Lut 1 cap PO DAILY 08/19/21 11/18/21 History [Ocuvite Adult 50 Plus Softgel] Famotidine [Pepcid] 20 mg PO DAILY 08/19/21 11/18/21 History Rivaroxaban [Xarelto] 15 mg PO W/SUPPER 08/19/21 11/18/21 History hydrALAZINE HCL [Apresoline] 100 mg PO TID 08/19/21 11/18/21 History traMADol HCl [Ultram] 50 - 100 mg PO Q8H PRN 08/19/21 11/18/21 History Amoxic-Pot Clav 875-125Mg 1 tab PO BID 11/18/21 11/18/21 History [Augmentin 875-125] Spironolactone [Aldactone] 50 mg PO DAILY 11/18/21 11/18/21 History Allergies Allergy/AdvReac Type Severity Reaction Status Date / Time amlodipine Allergy Anaphylaxis Verified 11/18/21 12:04 isosorbide mononitrate Allergy Rash/Hives Verified 11/18/21 12:04 [From [facility]] Physical Exam Vitals: Vital Signs Temp Pulse Pulse Resp BP BP Pulse Ox 11/19/21 07:15 98.4 F 85 16 161/72 95 11/19/21 02:00 98.8 F 93 14 140/71 94 L 11/18/21 20:00 99.1 F 90 16 147/61 97 11/18/21 16:30 98.5 F 98 16 115/65 97 11/18/21 16:10 80 18 133/56 96 11/18/21 14:15 78 18 146/73 98 Intake and Output 11/18/21 11/19/21 11/19/21 22:59 06:59 14:59 Other: # Voids 1 Weight 51.256 kg Results 11/19/21 04:56 11/19/21 04:56 Cardiac Enzymes 11/18/21 11/18/21 11/18/21 Range/Units 10:50 14:20 18:08 AST 27 (14-36) U/L Troponin I 0.075 H* 0.051 H* (0.000-0.034) ng/mL 11/19/21 11/19/21 Range/Units 04:56 08:02 AST 13 (14-36) U/L Troponin I 0.025 (0.000-0.034) ng/mL CBC 11/18/21 11/19/21 Range/Units 10:50 04:56 WBC 16.9 H 18.49 H (3.8-10.6) k/uL RBC 4.71 3.90 L (3.80-5.40) m/uL Hgb 13.7 11.0 L (11.4-16.0) gm/dL Hct 42.6 35.1 L (34.0-46.0) % Plt Count 253 233 (150-450) k/uL Comprehensive Metabolic Panel 11/18/21 11/19/21 Range/Units 10:50 04:56 Sodium 140 141 (137-145) mmol/L Potassium 3.3 L 3.0 L (3.5-5.1) mmol/L Chloride 104 107 (98-107) mmol/L Carbon Dioxide 27 23.0 (22-30) mmol/L BUN 20 H 13.9 (7-17) mg/dL Creatinine 0.74 0.6 (0.52-1.04) mg/dL Glucose 135 H 92 (74-99) mg/dL Calcium 9.8 8.5 L (8.4-10.2) mg/dL AST 27 13 (14-36) U/L ALT 18 13 (4-34) U/L Alkaline Phosphatase 45 49 (38-126) U/L Total Protein 6.8 5.2 L (6.3-8.2) g/dL Albumin 3.8 3.1 L (3.5-5.0) g/dL Current Medications Generic Name Dose Route Start Last Admin Trade Name Freq PRN Reason Stop Dose Admin Acetaminophen 650 mg 11/18/21 13:34 Acetaminophen Tab 325 Mg Tab PO Q6HR PRN Mild Pain or Fever > 100.5 Hydrocodone Bitart/Acetaminophen 1 each 11/18/21 14:03 11/18/21 14:54 Hydrocodone/Apap 5-325mg 1 Each Tab PO 1 each Q4HR PRN Administration Moderate Pain Al Hydroxide/Mg Hydroxide 15 ml 11/18/21 14:03 Mag Hydrox/Al Hydrox/Simeth 30 Ml Cup PO Q6HR PRN Indigestion Atorvastatin Calcium 40 mg 11/18/21 21:00 11/18/21 22:14 Atorvastatin 40 Mg Tab PO 40 mg HS JOHN Administration Carvedilol 12.5 mg 11/19/21 10:26 11/19/21 10:33 Carvedilol 12.5 Mg Tab PO 12.5 mg BID-W/MEALS JOHN Administration Famotidine 20 mg 11/19/21 09:00 11/19/21 10:31 Famotidine 20 Mg Tab PO 20 mg DAILY JOHN Administration Fluconazole 100 mg 11/19/21 11:30 Fluconazole 100 Mg Tab PO DAILY JOHN Sodium Chloride 1,000 mls @ 75 mls/hr 11/18/21 13:30 11/18/21 14:01 Saline 0.9% IV 75 mls/hr .[id number] JOHN Administration Ceftriaxone Sodium 1 gm/ 50 mls @ 100 mls/hr 11/18/21 14:15 11/19/21 10:31 Sodium Chloride IVPB 100 mls/hr Q24HR JOHN Administration Loperamide HCl 2 mg 11/18/21 14:03 Loperamide 2 Mg Cap PO Q2HR PRN Loose Stool Naloxone HCl 0.2 mg 11/18/21 14:03 Naloxone 0.4 Mg/Ml 1 Ml Vial IV Q2M PRN Opioid Reversal Ondansetron HCl 4 mg 11/18/21 14:03 Ondansetron 4 Mg/2 Ml Vial IVP Q8HR PRN Nausea And Vomiting Rivaroxaban 15 mg 11/18/21 17:30 11/18/21 18:01 Rivaroxaban 15 Mg Tab PO 15 mg W/SUPPER JOHN Administration Protocol Intake and Output 11/18/21 11/19/21 11/19/21 22:59 06:59 14:59 Other: # Voids 1 Weight 51.256 kg 11/19/21 04:56 11/19/21 04:56
[2021-11-19] MEDS: ACETAMINOPHEN TAB 325 MG TAB PO PRN ×2 (13:05→21:06)
[2021-11-19] MEDS: FLUCONAZOLE 100 MG TAB PO SCH (13:06)
[2021-11-19 13:49] VITALS: BMI 21.3
[2021-11-19] MEDS: SODIUM CHLORIDE 0.9% 1,000 ML IV SCH ×2 (16:18→16:24)
[2021-11-19] MEDS: RIVAROXABAN 15 MG TAB PO SCH (16:19)
[2021-11-19 16:34] LABS: Glucose,Whole Blood 128 mg/dL (75-99)
[2021-11-19] MEDS ORDERED: carvediloL 12.5 MG TAB PO SCH (17:30)
[2021-11-19 20:39] LABS: Glucose,Whole Blood 179 mg/dL (75-99)
[2021-11-19] MEDS: ATORVASTATIN 40 MG TAB PO SCH (21:06)
[2021-11-20 02:56] LABS: Basophils # (A) 0.1 k/uL (0-0.2); Basophils % (A) 0 %; Eosinophils # (A) 0.2 k/uL (0-0.7); Eosinophils % (A) 1 %; HCT 34.9 % (34.0-46.0); HGB 11.1 gm/dL (11.4-16.0); Hypochromasia Slight; Lymphocytes # (A) 1.5 k/uL (1.0-4.8); Lymphocytes % (A) 9 %; MCH 29.1 pg (25.0-35.0); MCHC 31.9 g/dL (31.0-37.0); MCV 91.4 fL (80.0-100.0); Mean Platelet Volume 8.1; Monocytes % (A) 6 %; Neutrophils # (A) 14.9 k/uL (1.3-7.7); Neutrophils % (A) 84 %; Platelet Count 210 k/uL (150-450); RBC 3.82 m/uL (3.80-5.40); RDW 15.8 % (11.5-15.5); WBC 17.7 k/uL (3.8-10.6)
[2021-11-20 03:14] LABS: ALT 16 U/L (4-34); AST 18 U/L (14-36); African American GFR (CKD) >90 (>60 ml/min/1.73 sqM); Albumin 2.7 g/dL (3.5-5.0); Albumin/Globulin Ratio 1.1; Alkaline Phosphatase 53 U/L (38-126); Anion Gap 5 mmol/L; Blood Urea Nitrogen 14 mg/dL (7-17); Carbon Dioxide 23 mmol/L (22-30); Chloride 111 mmol/L (98-107); Globulin 2.5 g/dL; Glucose 136 mg/dL (74-99); Non-African American GFR(CKD) >90 (>60 ml/min/1.73 sqM); Potassium 3.1 mmol/L (3.5-5.1); Sodium 139 mmol/L (137-145); Total Bilirubin 0.5 mg/dL (0.2-1.3); Total Protein 5.2 g/dL (6.3-8.2)
[2021-11-20] MEDS ORDERED: Potassium Replacement Protocol 1 EACH MISC MISCELLANE PRN (04:23)
[2021-11-20] MEDS: POTASSIUM CHLORIDE ER 20 MEQ TAB.ER PO SCH ×2 (05:00→06:06)
[2021-11-20] MEDS: SODIUM CHLORIDE 0.9% 1,000 ML IV SCH ×2 (05:00→16:11)
[2021-11-20] MEDS: ACETAMINOPHEN TAB 325 MG TAB PO PRN (06:06)
[2021-11-20 06:45] LABS: Glucose,Whole Blood 106 mg/dL (75-99)
[2021-11-20] MEDS: FAMOTIDINE 20 MG TAB PO SCH (07:20)
[2021-11-20] MEDS: FLUCONAZOLE 100 MG TAB PO SCH (07:21)
[2021-11-20] MEDS: HYDROcodone/APAP 5-325MG 1 EACH TAB PO PRN ×2 (07:21→21:10)
[2021-11-20] MEDS: carvediloL 12.5 MG TAB PO SCH ×2 (07:21→16:10)
[2021-11-20 07:41] LABS: Magnesium 1.4 mg/dL (1.6-2.3)
[2021-11-20] MEDS: MAGNESIUM SULFATE-D5W PMX 1 GM in DEXTROSE/WATER 1 100ML.BAG IVPB SCH ×3 (09:16→11:40)
[2021-11-20 11:08] LABS: Glucose,Whole Blood 176 mg/dL (75-99)
--- NOTE | 2021-11-20 14:00 | P.PN ---
Subjective Progress Note Date: 11/20/21 This is a pleasant 81-year-old female past medical history significant for hypertension, hyperlipidemia, permanent atrial fibrillation, sick sinus syndrome status post single-chamber pacemaker 05/2021 CVA, type 2 diabetes, former smoker . She follows in the office with Dr. Carias. We have been asked to see in consultation for elevated troponin. Patient presents emergency department with symptoms of generalized weakness, multiple falls and diarrhea. She has been having multiple falls at home. She says she gets weak and falls before. Denies any loss of consciousness. Troponin was initially elevated but subsequent troponins were normal. Pacemaker interrogation showed normal device function with a brief episodes of nonsustained ventricular tachycardia and a single chamber device which could be episodes of brief RVR with underlying atrial fibrillation. Echocardiogram with Doppler study showed a low normal LV systolic function with ejection fraction 50-55% with mild MR and mild TR. Upon examination she is resting comfortably in bed. At this time she is overall feeling well. Denies any complaint of chest discomfort or shortness of breath. She has no PND or orthopnea. She's had no syncopal episodes and denies any complaints of dizziness. Objective - Vital Signs Vital signs: Vital Signs Temp 97.5 F L 11/20/21 07:14 Pulse 86 11/20/21 07:14 Resp 16 11/20/21 07:14 BP 178/82 11/20/21 07:14 Pulse Ox 100 11/20/21 07:14 Intake & Output 11/19/21 11/20/21 11/20/21 18:59 06:59 18:59 Weight 51.256 kg Other: Voiding Method Bedside Commode Bedside Commode # Voids 5 5 # Bowel Movements 3 2 - Exam PHYSICAL EXAMINATION: HEENT: Head is atraumatic, normocephalic. Pupils equal, round. Neck is supple. There is no elevated jugular venous pressure. HEART EXAMINATION: Heart sounds irregular rate and rhythm, S1 and S2 normal. No murmur or gallop heard. CHEST EXAMINATION: Lungs are clear to auscultation and precussion. No chest wall tenderness is noted on palpation or with deep breathing. ABDOMEN: Soft, nontender. Bowel sounds are heard. No organomegaly noted. EXTREMITIES: 2+ peripheral pulses with no evidence of peripheral edema and no calf tenderness noted. NEUROLOGIC patient is awake, alert and oriented x2. . - Labs CBC & Chem 7: 11/20/21 02:26 11/20/21 07:31 Labs: Abnormal Lab Results - Last 24 Hours (Table) 11/19/21 11/19/21 11/20/21 Range/Units 16:31 20:37 02:26 WBC 17.7 H (3.8-10.6) k/uL Hgb 11.1 L (11.4-16.0) gm/dL RDW 15.8 H (11.5-15.5) % Neutrophils # 14.9 H (1.3-7.7) k/uL Potassium (3.5-5.1) mmol/L Chloride (98-107) mmol/L Creatinine (0.52-1.04) mg/dL Glucose (74-99) mg/dL POC Glucose (mg/dL) 128 H 179 H (75-99) mg/dL Calcium (8.4-10.2) mg/dL Magnesium (1.6-2.3) mg/dL Total Protein (6.3-8.2) g/dL Albumin (3.5-5.0) g/dL 11/20/21 11/20/21 11/20/21 Range/Units 02:26 06:42 11:05 WBC (3.8-10.6) k/uL Hgb (11.4-16.0) gm/dL RDW (11.5-15.5) % Neutrophils # (1.3-7.7) k/uL Potassium 3.1 L (3.5-5.1) mmol/L Chloride 111 H (98-107) mmol/L Creatinine 0.51 L (0.52-1.04) mg/dL Glucose 136 H (74-99) mg/dL POC Glucose (mg/dL) 106 H 176 H (75-99) mg/dL Calcium 8.0 L (8.4-10.2) mg/dL Magnesium 1.4 L (1.6-2.3) mg/dL Total Protein 5.2 L (6.3-8.2) g/dL Albumin 2.7 L (3.5-5.0) g/dL Microbiology - Last 24 Hours (Table) 11/18/21 14:20 Blood Culture - Preliminary Blood No Growth after 24 hours Assessment and Plan Assessment: Elevated troponin, not consistent with acute coronary syndrome, repeat troponin negative, no acute ischemia noted on EKG. Echo with EF 50-55% Multiple falls at home, no clear syncope, no evidence of cardiac etiology Sick sinus syndrome status post single-chamber pacemaker implantation 05/2021 Hypertension Hyperlipidemia Permanent atrial fibrillation on Xarelto Non-obstructive coronary artery disease History of prior CVA Type 2 diabetes Former smoker Plan: From general farm hand perspective medications were reviewed and we will continue the same. From our standpoint patient may be discharged home today. She will follow-up as an outpatient with Dr. Carias. SENIOR COST ANALYST note has been reviewed, I agree with a documented findings and plan of care. Patient was seen and examined.
--- NOTE | 2021-11-20 14:50 | P.PN ---
<Scar Leon - Last Filed: 11/20/21 14:28> Subjective Progress Note Date: 11/20/21 Hospital course: Patient is a very pleasant 81-year-old female with a past medical history of CAD with sick sinus syndrome status post single-chamber pacemaker 2020, permanent atrial fibrillation, hypertension, hyperlipidemia, diabetes mellitus type 2, and CVA with left-sided residual weakness. She presented to the hospital on 11/18/21 from assisted living facility with a chief complaint of r ecurrent falls resulting in lower back and left hip pain. In the emergency department patient underwent full evaluation. CT head and cervical spine were negative for acute process. X-ray pelvis negative for acute displaced fracture or dislocation. X-ray lumbar spine revealing moderate compression type fracture at L1 redemonstrated with persistent grade 1 anterolisthesis L4 and L5, there were no acute displaced fractures noted. EKG revealing atrial fibrillation with a controlled ventricular rate of 89 bpm and occasional PVC. Initially troponin slightly elevated at 0.075 with repeat troponin is 0.051 followed by 0.025. Patient was admitted under our services with consultation to cardiology. Echocardiogram revealed EF 50-55% with no significant valvular abnormalities. Blood culture showing no growth after 24 hours. Urinalysis negative for infection. Physical exam: Patient was seen and fully evaluated at bedside this morning. She reported prior to my assessment that she was experiencing some chest pain to the right side of her chest and into her back. A repeat EKG was completed unchanged revealing atrial fibrillation with PVCs, controlled ventricular rate of 69 bpm. Repeat troponin also done resulting in less than 0.012. At time of assessment patient reports chest pain had resolved and currently denies having any complaints or concerns at this time. She remains on atorvastatin, carvedilol, and Xarelto. Cardiology is following. Morning labs reveal continued leukocytosis with WBC count of 17.7, hypokalemia with potassium of 3.1, and hypomagnesemia with magnesium of 1.4. Vital signs reviewed and stable. General: Nontoxic, no distress and appears stated age. Derm: Skin warm and dry, normal coloration for ethnicity. Head: Atraumatic, normocephalic and symmetric. Eyes: EOMs intact, no lid lag, and anicteric sclera Mouth: no lip lesions, mucus membranes moist Cardiovascular: regular rate and rhythm with normal S1S2, no murmur, positive posterior tibial pulses bilaterally, and cap refill < 2 seconds. Lungs: Respirations even, regular, and unlabored on room air. Lungs CTA bilaterally, no rhonchi, no rales, no wheezing, and no accessory muscle usage. Abdominal: soft, nontender to palpation, no guarding, no appreciable organomegaly Ext: ROM intact. No gross muscle atrophy, no edema, no contractures Neuro: Speech clear, face symmetrical and CN II-XII grossly intact with no noted focal neuro deficits Psych: Alert and oriented to person, place, time, and situation. Appropriate and pleasant affect. Assessment and Plan of Care: Elevated troponin, decreased and now back to negative Sick sinus syndrome status post single-chamber pacemaker implantation 05/2021 Hypertension Hyperlipidemia Permanent atrial fibrillation on Xarelto Non-obstructive coronary artery disease -Cardiology following -Telemetry monitoring -Cardiac diet -Echocardiogram revealing EF of 50-55% with no significant valvular abnormalities. - Patient to continue atorvastatin, carvedilol, and Xarelto Recurrent UTIs Leukocytosis Generalized weakness Recurrent falls History of prior CVA with left-sided residual deficit -We will obtain a pro-calcitonin as urinalysis was negative for infection and blood culture showing no growth after 24 hours. If pro-calcitonin is negative may consider discontinuing antibiotic at that time. -PT/OT following recommending subacute rehab upon discharge. However patient resides at [facility] and has all meals and housekeeping provided to her, she receives supervision with showers and transportation is provided by family. Patient to be discharged home with home care per her request along with increasing services provided to her at [facility]. -Fall precautions Hypokalemia Hypomagnesemia Replaced. We will continue to monitor with repeat a.m. labs. CODE STATUS: Full code DVT prophylaxis: Xatelto Discussed with: Patient and RN Anticipated discharge date: Clinical course to determine likely tomorrow morning Anticipated discharge place: Back to [facility] with home care A total of 40 minutes was spent on the care of this complex patient more than 50% of the time was spent in counseling and care coordination. Objective - Vital Signs Vital signs: Vital Signs Temp 97.5 F L 11/20/21 07:14 Pulse 86 11/20/21 07:14 Resp 16 11/20/21 07:14 BP 178/82 11/20/21 07:14 Pulse Ox 100 11/20/21 07:14 Intake & Output 11/19/21 11/20/21 11/20/21 18:59 06:59 18:59 Weight 51.256 kg Other: Voiding Method Bedside Commode Bedside Commode # Voids 5 5 # Bowel Movements 3 2 - Labs CBC & Chem 7: 11/20/21 02:26 11/20/21 07:31 Labs: Abnormal Lab Results - Last 24 Hours (Table) 11/19/21 11/19/21 11/19/21 Range/Units 04:56 04:56 11:33 WBC 18.49 H (4.50-10.00) X 10*3/uL RBC 3.90 L (4.10-5.20) X 10*6/uL Hgb 11.0 L (12.0-15.0) g/dL Hct 35.1 L (37.2-46.3) % MCHC 31.3 L (32.0-37.0) g/dL RDW 16.5 H (11.5-14.5) % Immature Gran # 0.09 H (0.00-0.04) X 10*3/uL Neutrophils # 14.94 H (1.80-7.70) X 10*3/uL Monocytes # 1.54 H (0.20-1.00) X 10*3/uL Potassium 3.0 L (3.5-5.5) mmol/L Chloride (98-107) mmol/L Creatinine (0.52-1.04) mg/dL BUN/Creatinine Ratio 24.78 H (12.00-20.00) Ratio Glucose (74-99) mg/dL POC Glucose (mg/dL) 106 H (75-99) mg/dL Calcium 8.5 L (8.7-10.3) mg/dL Magnesium (1.6-2.3) mg/dL Total Protein 5.2 L (6.2-8.2) g/dL Albumin 3.1 L (3.8-4.9) g/dL Albumin/Globulin Ratio 1.51 L (1.60-3.17) g/dL 11/19/21 11/19/21 11/20/21 Range/Units 16:31 20:37 02:26 WBC 17.7 H (4.50-10.00) X 10*3/uL RBC (4.10-5.20) X 10*6/uL Hgb 11.1 L (12.0-15.0) g/dL Hct (37.2-46.3) % MCHC (32.0-37.0) g/dL RDW 15.8 H (11.5-14.5) % Immature Gran # (0.00-0.04) X 10*3/uL Neutrophils # 14.9 H (1.80-7.70) X 10*3/uL Monocytes # (0.20-1.00) X 10*3/uL Potassium (3.5-5.5) mmol/L Chloride (98-107) mmol/L Creatinine (0.52-1.04) mg/dL BUN/Creatinine Ratio (12.00-20.00) Ratio Glucose (74-99) mg/dL POC Glucose (mg/dL) 128 H 179 H (75-99) mg/dL Calcium (8.7-10.3) mg/dL Magnesium (1.6-2.3) mg/dL Total Protein (6.2-8.2) g/dL Albumin (3.8-4.9) g/dL Albumin/Globulin Ratio (1.60-3.17) g/dL 11/20/21 11/20/21 Range/Units 02:26 06:42 WBC (4.50-10.00) X 10*3/uL RBC (4.10-5.20) X 10*6/uL Hgb (12.0-15.0) g/dL Hct (37.2-46.3) % MCHC (32.0-37.0) g/dL RDW (11.5-14.5) % Immature Gran # (0.00-0.04) X 10*3/uL Neutrophils # (1.80-7.70) X 10*3/uL Monocytes # (0.20-1.00) X 10*3/uL Potassium 3.1 L (3.5-5.5) mmol/L Chloride 111 H (98-107) mmol/L Creatinine 0.51 L (0.52-1.04) mg/dL BUN/Creatinine Ratio (12.00-20.00) Ratio Glucose 136 H (74-99) mg/dL POC Glucose (mg/dL) 106 H (75-99) mg/dL Calcium 8.0 L (8.7-10.3) mg/dL Magnesium 1.4 L (1.6-2.3) mg/dL Total Protein 5.2 L (6.2-8.2) g/dL Albumin 2.7 L (3.8-4.9) g/dL Albumin/Globulin Ratio (1.60-3.17) g/dL Microbiology - Last 24 Hours (Table) 11/18/21 14:20 Blood Culture - Preliminary Blood No Growth after 24 hours <Thania Kingsley - Last Filed: 11/20/21 17:06> Subjective I reviewed the documentation as provided by the TIAGO above, who is the original author of this note. I agree with the documented assessment and plan, with the following changes: None Objective - Vital Signs Vital signs: Vital Signs Temp 97.5 F L 11/20/21 13:38 Pulse 65 11/20/21 13:38 Resp 18 11/20/21 13:38 BP 150/81 11/20/21 13:38 Pulse Ox 97 11/20/21 13:38 Intake & Output 11/19/21 11/20/21 11/20/21 18:59 06:59 18:59 Weight 51.256 kg Other: Voiding Method Bedside Commode Bedside Commode # Voids 5 5 # Bowel Movements 3 2 - Labs CBC & Chem 7: 11/20/21 02:26 11/20/21 07:31 Labs: Abnormal Lab Results - Last 24 Hours (Table) 11/19/21 11/20/21 11/20/21 Range/Units 20:37 02:26 02:26 WBC 17.7 H (3.8-10.6) k/uL Hgb 11.1 L (11.4-16.0) gm/dL RDW 15.8 H (11.5-15.5) % Neutrophils # 14.9 H (1.3-7.7) k/uL Potassium 3.1 L (3.5-5.1) mmol/L Chloride 111 H (98-107) mmol/L Creatinine 0.51 L (0.52-1.04) mg/dL Glucose 136 H (74-99) mg/dL POC Glucose (mg/dL) 179 H (75-99) mg/dL Calcium 8.0 L (8.4-10.2) mg/dL Magnesium 1.4 L (1.6-2.3) mg/dL Total Protein 5.2 L (6.3-8.2) g/dL Albumin 2.7 L (3.5-5.0) g/dL 11/20/21 11/20/21 11/20/21 Range/Units 06:42 11:05 16:33 WBC (3.8-10.6) k/uL Hgb (11.4-16.0) gm/dL RDW (11.5-15.5) % Neutrophils # (1.3-7.7) k/uL Potassium (3.5-5.1) mmol/L Chloride (98-107) mmol/L Creatinine (0.52-1.04) mg/dL Glucose (74-99) mg/dL POC Glucose (mg/dL) 106 H 176 H 152 H (75-99) mg/dL Calcium (8.4-10.2) mg/dL Magnesium (1.6-2.3) mg/dL Total Protein (6.3-8.2) g/dL Albumin (3.5-5.0) g/dL Microbiology - Last 24 Hours (Table) 11/18/21 14:20 Blood Culture - Preliminary Blood No Growth after 48 hours
[2021-11-20] MEDS: RIVAROXABAN 15 MG TAB PO SCH (16:10)
[2021-11-20 16:36] LABS: Glucose,Whole Blood 152 mg/dL (75-99)
[2021-11-20 20:47] LABS: Glucose,Whole Blood 158 mg/dL (75-99)
[2021-11-20] MEDS: ATORVASTATIN 40 MG TAB PO SCH (21:10)
[2021-11-21] MEDS: carvediloL 12.5 MG TAB PO SCH ×2 (07:49→15:39)
[2021-11-21] MEDS: FAMOTIDINE 20 MG TAB PO SCH (07:49)
[2021-11-21 09:06] LABS: HCT 32.9 % (37.2-46.3); HGB 9.8 g/dL (12.0-15.0); MCHC 29.8 g/dL (32.0-37.0); MCV 90.6 fL (80.0-97.0); Mean Platelet Volume 11.6 fL (9.5-12.2); NRBC Per 100 WBC 0 /100 WBCS (0.0-0.0); Platelet Count 242 X 10*3/uL (140-440); RBC 3.63 X 10*6/uL (4.10-5.20); WBC 12.81 X 10*3/uL (4.50-10.00)
[2021-11-21 09:30] LABS: Magnesium 1.7 mg/dL (1.5-2.4)
[2021-11-21 09:34] LABS: African American GFR (CKD) 112.3 (60.0-200.0); Albumin 2.9 g/dL (3.8-4.9); Albumin/Globulin Ratio 1.53 (1.60-3.17); Anion Gap 9.6 mmol/L (10.00-18.00); BUN/Creat Ratio 19.73 Ratio (12.00-20.00); Blood Urea Nitrogen 8.1 mg/dL (9.0-27.0); Carbon Dioxide 20.6 mmol/L (20.0-27.5); Globulin 1.9 g/dL (1.6-3.3); Non-African American GFR(CKD) 96.9 (60.0-200.0); Potassium 3.9 mmol/L (3.5-5.5); Total Bilirubin 0.3 mg/dL (0.30-1.20); Total Protein 4.9 g/dL (6.2-8.2)
[2021-11-21] MEDS: HYDROcodone/APAP 5-325MG 1 EACH TAB PO PRN ×2 (10:03→20:53)
--- NOTE | 2021-11-21 12:15 | P.PN ---
Subjective Progress Note Date: 11/21/21 This is a pleasant 81-year-old female past medical history significant for hypertension, hyperlipidemia, permanent atrial fibrillation, sick sinus syndrome status post single-chamber pacemaker 05/2021 CVA, type 2 diabetes, former smoker . She follows in the office with Dr. Carias. We have been asked to see in consultation for elevated troponin. Patient presents emergency department with symptoms of generalized weakness, multiple falls and diarrhea. She has been having multiple falls at home. She says she gets weak and falls before. Denies any loss of consciousness. Troponin was initially elevated but subsequent troponins were normal. Pacemaker interrogation showed normal device function with a brief episodes of nonsustained ventricular tachycardia and a single chamber device which could be episodes of brief RVR with underlying atrial fibrillation. Echocardiogram with Doppler study showed a low normal LV systolic function with ejection fraction 50-55% with mild MR and mild TR. Upon examination she is resting comfortably in bed. At this time she is overall feeling well. Denies any complaint of chest discomfort or shortness of breath. She has no PND or orthopnea. She's had no syncopal episodes and denies any complaints of dizziness. 11/21/2021 Patient was seen and examined resting in a chair at the bedside. She's had no complaints of dizziness, lightheadedness or syncope. She said no chest discomfort or shortness of breath. Blood pressure is elevated she is currently on carvedilol 12.5 mg by mouth twice a day. Objective - Vital Signs Vital signs: Vital Signs Temp 97.8 F 11/21/21 08:00 Pulse 71 11/21/21 08:00 Resp 16 11/21/21 08:00 BP 172/70 11/21/21 08:00 Pulse Ox 97 11/21/21 08:00 Intake & Output 11/20/21 11/21/21 11/21/21 18:59 06:59 18:59 Intake Total 480 Output Total 1 Balance 479 Intake: Oral 480 Output: Urine 1 Other: Voiding Method Bedside Commode # Voids 6 1 # Bowel Movements 1 - Exam PHYSICAL EXAMINATION: HEENT: Head is atraumatic, normocephalic. Pupils equal, round. Neck is supple. There is no elevated jugular venous pressure. HEART EXAMINATION: Heart sounds irregular rate and rhythm, S1 and S2 normal. No murmur or gallop heard. CHEST EXAMINATION: Lungs are clear to auscultation and precussion. No chest wall tenderness is noted on palpation or with deep breathing. ABDOMEN: Soft, nontender. Bowel sounds are heard. No organomegaly noted. EXTREMITIES: 2+ peripheral pulses with no evidence of peripheral edema and no calf tenderness noted. NEUROLOGIC patient is awake, alert and oriented x2. . - Labs CBC & Chem 7: 11/21/21 03:55 11/21/21 03:55 Labs: Abnormal Lab Results - Last 24 Hours (Table) 11/20/21 11/20/21 11/20/21 Range/Units 07:31 16:33 20:44 WBC (4.50-10.00) X 10*3/uL RBC (4.10-5.20) X 10*6/uL Hgb (12.0-15.0) g/dL Hct (37.2-46.3) % MCHC (32.0-37.0) g/dL RDW (11.5-14.5) % Chloride (96-109) mmol/L Anion Gap (10.00-18.00) mmol/L BUN (9.0-27.0) mg/dL Creatinine (0.6-1.5) mg/dL POC Glucose (mg/dL) 152 H 158 H (75-99) mg/dL Calcium (8.7-10.3) mg/dL Total Protein (6.2-8.2) g/dL Albumin (3.8-4.9) g/dL Albumin/Globulin Ratio (1.60-3.17) g/dL Procalcitonin 0.11 H (0.02-0.09) ng/mL 11/21/21 11/21/21 Range/Units 03:55 03:55 WBC 12.81 H (4.50-10.00) X 10*3/uL RBC 3.63 L (4.10-5.20) X 10*6/uL Hgb 9.8 L (12.0-15.0) g/dL Hct 32.9 L (37.2-46.3) % MCHC 29.8 L (32.0-37.0) g/dL RDW 16.0 H (11.5-14.5) % Chloride 113 H (96-109) mmol/L Anion Gap 9.60 L (10.00-18.00) mmol/L BUN 8.1 L (9.0-27.0) mg/dL Creatinine 0.4 L (0.6-1.5) mg/dL POC Glucose (mg/dL) (75-99) mg/dL Calcium 8.0 L (8.7-10.3) mg/dL Total Protein 4.9 L (6.2-8.2) g/dL Albumin 2.9 L (3.8-4.9) g/dL Albumin/Globulin Ratio 1.53 L (1.60-3.17) g/dL Procalcitonin (0.02-0.09) ng/mL Microbiology - Last 24 Hours (Table) 11/18/21 14:20 Blood Culture - Preliminary Blood No Growth after 48 hours Assessment and Plan Assessment: Elevated troponin, not consistent with acute coronary syndrome, repeat troponin negative, no acute ischemia noted on EKG. Echo with EF 50-55% Multiple falls at home, no clear syncope, no evidence of cardiac etiology Sick sinus syndrome status post single-chamber pacemaker implantation 05/2021 Hypertension Hyperlipidemia Permanent atrial fibrillation on Xarelto Non-obstructive coronary artery disease History of prior CVA Type 2 diabetes Former smoker Plan: From any commodity sales deliverer perspective medications were reviewed and we will add Losartan 50 mg daily. From our standpoint patient may be discharged when cleared by primary. She will follow-up as an outpatient with Dr. Carias. HERB GROWER note has been reviewed, I agree with a documented findings and plan of care. Patient was seen and examined.
[2021-11-21] MEDS: LOSARTAN 50 MG TAB PO SCH (13:04)
--- NOTE | 2021-11-21 13:27 | P.PN ---
<Scar Leon - Last Filed: 11/21/21 13:04> Subjective Progress Note Date: 11/21/21 Hospital course: Patient is a very pleasant 81-year-old female with a past medical history of CAD with sick sinus syndrome status post single-chamber pacemaker 2020, permanent atrial fibrillation, hypertension, hyperlipidemia, diabetes mellitus type 2, and CVA with left-sided residual weakness. She presented to the hospital on 11/18/21 from assisted living facility with a chief complaint of r ecurrent falls resulting in lower back and left hip pain. In the emergency department patient underwent full evaluation. CT head and cervical spine were negative for acute process. X-ray pelvis negative for acute displaced fracture or dislocation. X-ray lumbar spine revealing moderate compression type fracture at L1 redemonstrated with persistent grade 1 anterolisthesis L4 and L5, there were no acute displaced fractures noted. EKG revealing atrial fibrillation with a controlled ventricular rate of 89 bpm and occasional PVC. Initially troponin slightly elevated at 0.075 with repeat troponin is 0.051 followed by 0.025. Patient was admitted under our services with consultation to cardiology. Echocardiogram revealed EF 50-55% with no significant valvular abnormalities. Blood culture showing no growth after 24 hours. Urinalysis negative for infection. Physical exam: Patient was seen and fully evaluated at bedside this morning. Patient appeared to be doing well and showed no signs of acute distress at this time. She has been cleared from cardiology for discharge. Patient is also medically stable for discharge at this time. Patient continues with weakness and transfers and noted difficulties with depth proprioception. Upon transferring to [facility], patient prematurely sitting and had difficult time following commands. Physical therapy called the bedside to further assess patient as patient's initial plan was to be discharged back to [facility] increasing her services and adding on home care. However, due to persistent noted difficulties and further assessment by physical therapy, it is determined that patient would greatly benefit from senior care facility for rehab to work on building strength, endurance, and better ability to manage difficulties with proprioception. Patient in agreement stating "that is for the best.". Called and spoke with patient's son and her [id number] and updated them on the recommendations and they too were in agreement that rehabilitation is much needed at this time. Patient otherwise denies having any other complaints including headache, lightheadedness, dizziness, chest pain, palpitations, shortness of breath, or experiencing any numbness/tingling/weakness in her extremities. Morning labs reviewed. Continued hypomagnesemia with magnesium of 1.7 and orders placed for replacement. Leukocytosis improving with WBC down to 12.81 and hemoglobin 9.8 (likely decreased secondary to dilution, we will reevaluate with repeat a.m. labs). Vital signs reviewed and stable. General: Nontoxic, no distress and appears stated age. Derm: Skin warm and dry, normal coloration for ethnicity. Head: Atraumatic, normocephalic and symmetric. Eyes: EOMs intact, no lid lag, and anicteric sclera Mouth: no lip lesions, mucus membranes moist Cardiovascular: regular rate and rhythm with normal S1S2, no murmur, positive posterior tibial pulses bilaterally, and cap refill < 2 seconds. Lungs: Respirations even, regular, and unlabored on room air. Lungs CTA bilaterally, no rhonchi, no rales, no wheezing, and no accessory muscle usage. Abdominal: soft, nontender to palpation, no guarding, no appreciable organomegaly Ext: ROM intact. No gross muscle atrophy, no edema, no contractures Neuro: Speech clear, face symmetrical and CN II-XII grossly intact with no noted focal neuro deficits Psych: Alert and oriented to person, place, time, and situation. Appropriate and pleasant affect. Assessment and Plan of Care: Elevated troponin, decreased and now back to negative, acute coronary event ruled out Sick sinus syndrome status post single-chamber pacemaker implantation 05/2021 Hypertension Hyperlipidemia Permanent atrial fibrillation on Xarelto Non-obstructive coronary artery disease -Cardiology following, recommending patient continue with carvedilol 12.5 mg twice daily and added on losartan for blood pressure management. -Telemetry monitoring -Cardiac diet -Echocardiogram revealing EF of 50-55% with no significant valvular abnormalities. -Patient to continue atorvastatin, carvedilol, and Xarelto Recurrent UTIs Leukocytosis Generalized weakness Recurrent falls History of prior CVA with left-sided residual deficit -We will obtain a pro-calcitonin as urinalysis was negative for infection and blood culture showing no growth after 48 hours. -Pro-calcitonin slightly elevated at 0.11. -Patient received 3 day course of Rocephin and Diflucan. -PT/OT following recommending subacute rehab upon discharge. -Fall precautions Hypokalemia Hypomagnesemia Replaced. We will continue to monitor with repeat a.m. labs. CODE STATUS: Full code DVT prophylaxis: Xatelto Discussed with: Patient, RN, Pt's son Vincent and Pt's [id number] Sierra. Anticipated discharge date: Tomorrow morning pending acceptance to rehab facility and insurance authorization Anticipated [facility] place[facility] A total of 40 minutes was spent on the care of this complex patient more than 50% of the time was spent in counseling and care coordination. Objective - Vital Signs Vital signs: Vital Signs Temp 97.8 F 11/21/21 08:00 Pulse 71 11/21/21 08:00 Resp 16 11/21/21 08:00 BP 172/70 11/21/21 08:00 Pulse Ox 97 11/21/21 08:00 Intake & Output 11/20/21 11/21/21 11/21/21 18:59 06:59 18:59 Intake Total 480 Output Total 1 Balance 479 Intake: Oral 480 Output: Urine 1 Other: Voiding Method Bedside Commode # Voids 6 - Labs CBC & Chem 7: 11/21/21 03:55 11/21/21 03:55 Labs: Abnormal Lab Results - Last 24 Hours (Table) 11/20/21 11/20/21 11/20/21 Range/Units 07:31 11:05 16:33 WBC (4.50-10.00) X 10*3/uL RBC (4.10-5.20) X 10*6/uL Hgb (12.0-15.0) g/dL Hct (37.2-46.3) % MCHC (32.0-37.0) g/dL RDW (11.5-14.5) % POC Glucose (mg/dL) 176 H 152 H (75-99) mg/dL Procalcitonin 0.11 H (0.02-0.09) ng/mL 11/20/21 11/21/21 Range/Units 20:44 03:55 WBC 12.81 H (4.50-10.00) X 10*3/uL RBC 3.63 L (4.10-5.20) X 10*6/uL Hgb 9.8 L (12.0-15.0) g/dL Hct 32.9 L (37.2-46.3) % MCHC 29.8 L (32.0-37.0) g/dL RDW 16.0 H (11.5-14.5) % POC Glucose (mg/dL) 158 H (75-99) mg/dL Procalcitonin (0.02-0.09) ng/mL Microbiology - Last 24 Hours (Table) 11/18/21 14:20 Blood Culture - Preliminary Blood No Growth after 48 hours <Thania Kingsley - Last Filed: 11/21/21 17:30> Subjective I reviewed the documentation as provided by the TIAGO above, who is the original a uthor of this note. I agree with the documented assessment and plan, with the following changes: none Objective - Vital Signs Vital signs: Vital Signs Temp 98.4 F 11/21/21 14:00 Pulse 58 L 11/21/21 14:00 Resp 16 11/21/21 14:00 BP 172/69 11/21/21 14:00 Pulse Ox 97 11/21/21 14:00 Intake & Output 11/20/21 11/21/21 11/21/21 18:59 06:59 18:59 Intake Total 480 Output Total 1 Balance 479 Intake: Oral 480 Output: Urine 1 Other: Voiding Method Bedside Commode # Voids 6 1 # Bowel Movements 1 - Labs CBC & Chem 7: 11/21/21 03:55 11/21/21 03:55 Labs: Abnormal Lab Results - Last 24 Hours (Table) 11/20/21 11/20/21 11/21/21 Range/Units 07:31 20:44 03:55 WBC 12.81 H (4.50-10.00) X 10*3/uL RBC 3.63 L (4.10-5.20) X 10*6/uL Hgb 9.8 L (12.0-15.0) g/dL Hct 32.9 L (37.2-46.3) % MCHC 29.8 L (32.0-37.0) g/dL RDW 16.0 H (11.5-14.5) % Chloride (96-109) mmol/L Anion Gap (10.00-18.00) mmol/L BUN (9.0-27.0) mg/dL Creatinine (0.6-1.5) mg/dL POC Glucose (mg/dL) 158 H (75-99) mg/dL Calcium (8.7-10.3) mg/dL Total Protein (6.2-8.2) g/dL Albumin (3.8-4.9) g/dL Albumin/Globulin Ratio (1.60-3.17) g/dL Procalcitonin 0.11 H (0.02-0.09) ng/mL 11/21/21 11/21/21 Range/Units 03:55 16:17 WBC (4.50-10.00) X 10*3/uL RBC (4.10-5.20) X 10*6/uL Hgb (12.0-15.0) g/dL Hct (37.2-46.3) % MCHC (32.0-37.0) g/dL RDW (11.5-14.5) % Chloride 113 H (96-109) mmol/L Anion Gap 9.60 L (10.00-18.00) mmol/L BUN 8.1 L (9.0-27.0) mg/dL Creatinine 0.4 L (0.6-1.5) mg/dL POC Glucose (mg/dL) 134 H (75-99) mg/dL Calcium 8.0 L (8.7-10.3) mg/dL Total Protein 4.9 L (6.2-8.2) g/dL Albumin 2.9 L (3.8-4.9) g/dL Albumin/Globulin Ratio 1.53 L (1.60-3.17) g/dL Procalcitonin (0.02-0.09) ng/mL Microbiology - Last 24 Hours (Table) 11/18/21 14:20 Blood Culture - Preliminary Blood No Growth after 72 hours
[2021-11-21] MEDS: MAGNESIUM SULFATE-D5W PMX 1 GM in DEXTROSE/WATER 1 100ML.BAG IVPB SCH ×2 (14:07→15:39)
[2021-11-21] MEDS: SODIUM CHLORIDE 0.9% 1,000 ML IV SCH (14:14)
[2021-11-21 16:28] LABS: Glucose,Whole Blood 134 mg/dL (75-99)
[2021-11-21] MEDS: RIVAROXABAN 15 MG TAB PO SCH (17:24)
[2021-11-21] MEDS: ATORVASTATIN 40 MG TAB PO SCH (20:53)
[2021-11-22 04:06] LABS: Basophils # (A) 0.1 k/uL (0-0.2); Basophils % (A) 1 %; Eosinophils # (A) 0.3 k/uL (0-0.7); Eosinophils % (A) 2 %; HCT 34.7 % (34.0-46.0); HGB 10.8 gm/dL (11.4-16.0); Hypochromasia Slight; Lymphocytes # (A) 2.3 k/uL (1.0-4.8); Lymphocytes % (A) 19 %; MCH 28.7 pg (25.0-35.0); MCHC 31.2 g/dL (31.0-37.0); Mean Platelet Volume 7.7; Monocytes # (A) 0.9 k/uL (0-1.0); Monocytes % (A) 8 %; Neutrophils # (A) 8.3 k/uL (1.3-7.7); Neutrophils % (A) 68 %; Platelet Count 259 k/uL (150-450); RBC 3.77 m/uL (3.80-5.40); RDW 15.9 % (11.5-15.5); WBC 12.1 k/uL (3.8-10.6)
[2021-11-22 04:20] LABS: African American GFR (CKD) >90 (>60 ml/min/1.73 sqM); Anion Gap 7 mmol/L; Blood Urea Nitrogen 13 mg/dL (7-17); Calcium 8.8 mg/dL (8.4-10.2); Carbon Dioxide 21 mmol/L (22-30); Chloride 112 mmol/L (98-107); Glucose 103 mg/dL (74-99); Magnesium 1.7 mg/dL (1.6-2.3); Non-African American GFR(CKD) >90 (>60 ml/min/1.73 sqM); Sodium 140 mmol/L (137-145)
[2021-11-22] MEDS: HYDROcodone/APAP 5-325MG 1 EACH TAB PO PRN (04:46)
[2021-11-22 07:02] VITALS: RESP 16; TEMP 97.7
[2021-11-22] MEDS: FAMOTIDINE 20 MG TAB PO SCH (07:17)
[2021-11-22] MEDS: carvediloL 12.5 MG TAB PO SCH (07:17)
[2021-11-22] MEDS: LOSARTAN 50 MG TAB PO SCH (07:17)
[2021-11-22 09:19] VITALS: BP 155/66; PULSE 77
[2021-11-22] MEDS: MAGNESIUM SULFATE-D5W PMX 1 GM in DEXTROSE/WATER 1 100ML.BAG IVPB SCH ×2 (10:18→11:25)
--- NOTE | 2021-11-22 10:20 | P.DS ---
<Scar Leon - Last Filed: 11/22/21 12:24> Providers Expected date of discharge: 11/22/21 Hospital Course: Discharge Diagnosis: Elevated troponin, decreased and now back to negative, acute coronary event ruled out Sick sinus syndrome status post single-chamber pacemaker implantation 05/2021 Hypertension Hyperlipidemia Permanent atrial fibrillation on Xarelto Non-obstructive coronary artery disease Recurrent UTIs Leukocytosis Generalized weakness Recurrent falls History of prior CVA with left-sided residual deficit Hypokalemia Hypomagnesemia Hospital Course: Patient is a very pleasant 81-year-old female with a past medical history of CAD with sick sinus syndrome status post single-chamber pacemaker 2020, permanent atrial fibrillation, hypertension, hyperlipidemia, diabetes mellitus type 2, and CVA with left-sided residual weakness. She presented to the hospital on 11/18/21 from assisted living facility with a chief complaint of recurrent falls resulting in lower back and left hip pain. In the emergency department patient underwent full evaluation. CT head and cervical spine were negative for acute process. X-ray pelvis negative for acute displaced fracture or dislocation. X-ray lumbar spine revealing moderate compression type fracture at L1 redemonstrated with persistent grade 1 anterolisthesis L4 and L5, there were no acute displaced fractures noted. EKG revealing atrial fibrillation with a controlled ventricular rate of 89 bpm and occasional PVC. Initially troponin slightly elevated at 0.075 with repeat troponin is 0.051 followed by 0.025. Patient was admitted under our services with consultation to cardiology. Echocardiogram revealed EF 50-55% with no significant valvular abnormalities. Blood culture showing no growth after 72 hours. Urinalysis negative for infection. Patient seen and fully evaluated by cardiology, acute coronary event was ruled out and they recommended increasing carvedilol to 12.5 mg daily and added losartan 50 mg daily to cardiac medication regimen. Patient was also seen and fully evaluated by physical and occupational therapy. She was noted to have persistent difficulties with proprioception, strength, endurance, balance. Physical therapy recommending skilled rehab upon discharge. Patient is medically stable for discharge at this time. Case management has arranged for long term placement. Patient's son and [id number] were updated on discharge plan. Hydralazine decreased to 50 mg 3 times daily, carvedilol include Cipro 0.5 mg twice daily with meal, new medications added losartan 50 mg daily and Mag-Ox 400 milligrams daily. Patient otherwise to continue daily medication regimen. Prescription sent for follow-up for repeat BMP and magnesium secondary to previously replaced electrolyte abnormalities. Patient medically stable for discharge to [facility] at this time. Physical exam: Vital signs reviewed and stable. General: Nontoxic, no distress and appears stated age. Derm: Skin warm and dry, normal coloration for ethnicity. Head: Atraumatic, normocephalic and symmetric. Eyes: EOMs intact, no lid lag, and anicteric sclera Mouth: no lip lesions, mucus membranes moist Cardiovascular: regular rate and rhythm with normal S1S2, no murmur, positive posterior tibial pulses bilaterally, and cap refill < 2 seconds. Lungs: Respirations even, regular, and unlabored on room air. Lungs CTA bilaterally, no rhonchi, no rales, no wheezing, and no accessory muscle usage. Abdominal: soft, nontender to palpation, no guarding, no appreciable organomeg [place] Ext: ROM intact. No gross muscle atrophy, no edema, no contractures Neuro: Speech clear, face symmetrical and CN II-XII grossly intact with no noted focal neuro deficits Psych: Alert and oriented to person, place, time, and situation. Appropriate and pleasant affect. A total of 45 minutes of time were spent preparing this complex discharge summary. Patient Condition at Discharge: Stable Plan - Discharge Summary Discharge Rx Participant: No New Discharge Prescriptions: New carvediloL [Coreg*] 12.5 mg PO BID-W/MEALS tab Losartan [Cozaar] 50 mg PO DAILY tab Magnesium Oxide [Mag-Ox] 400 mg PO DAILY 30 Days #30 tablet Continue Atorvastatin [Lipitor] 40 mg PO HS Ferrous Sulfate [Iron (65 MG Elemental)] 325 mg PO DAILY C,E,Zinc,Copper 11/Gxbah6q/Lut [Ocuvite Adult 50 Plus Softgel] 1 cap PO DAILY Acetaminophen [Tylenol 8 Hour] 650 mg PO Q6H PRN PRN Reason: Pain Rivaroxaban [Xarelto] 15 mg PO W/SUPPER Famotidine [Pepcid] 20 mg PO DAILY Changed hydrALAZINE HCL [Apresoline] 50 mg PO TID #0 traMADol HCl [Ultram] 50 mg PO Q8H PRN #6 tab PRN Reason: Pain Discontinued Amoxic-Pot Clav 875-125Mg [Augmentin 875-125] 1 tab PO BID carvediloL [Coreg] 6.25 mg PO BID lisinopriL [Zestril] 20 mg PO HS Spironolactone [Aldactone] 50 mg PO DAILY Discharge Medication List Atorvastatin [Lipitor] 40 mg PO HS 04/05/17 [History] Acetaminophen [Tylenol 8 Hour] 650 mg PO Q6H PRN 06/13/21 [History] Ferrous Sulfate [Iron (65 MG Elemental)] 325 mg PO DAILY 06/13/21 [History] C,E,Zinc,Copper 11/Vgskv3z/Lut [Ocuvite Adult 50 Plus Softgel] 1 cap PO DAILY 08/19/21 [History] Famotidine [Pepcid] 20 mg PO DAILY 08/19/21 [History] Rivaroxaban [Xarelto] 15 mg PO W/SUPPER 08/19/21 [History] Losartan [Cozaar] 50 mg PO DAILY tab 11/22/21 [Rx] Magnesium Oxide [Mag-Ox] 400 mg PO DAILY 30 Days #30 tablet 11/22/21 [Rx] carvediloL [Coreg*] 12.5 mg PO BID-W/MEALS tab 11/22/21 [Rx] hydrALAZINE HCL [Apresoline] 50 mg PO TID #0 11/22/21 [Rx] traMADol HCl [Ultram] 50 mg PO Q8H PRN #6 tab 11/22/21 [Rx] Follow up Appointment(s)/Referral(s): [facility], [NON-STAFF] - As Needed Gen Palma MD [Primary Care Provider] - 1-2 days Ambulatory/Diagnostic Orders: Basic Metabolic Panel [LAB.AMB] Time Frame: 3 Days, Location: None Selected Magnesium [LAB.AMB] Location: None Selected Activity/Diet/Wound Care/Special Instructions: Activity: As tolerated. Take breaks as needed. Diet: Heart healthy and carb consistent diet. Avoid salts, or foods with hidden salts such as canned or boxed foods and frozen dinners. Extra salt makes your heart work harder and traps the fluid in your body for longer. Special Instructions: Take all of your medications as directed and remember to keep all of your doctor's appointments and follow-up as needed. Thank you for allowing us to participate in your care, it was truly a pleasure having you for our patient!!! Discharge Disposition: TRANSFER TO SNF/ECF <Thania Kingsley - Last Filed: 11/23/21 07:09> Providers Date of admission: 11/18/21 13:34 Attending physician: Jazmyn Elizalde MD Primary care physician: Gen Palma Hospital Course: I reviewed the documentation as provided by the TIAGO above, who is the original author of this note. I agree with the documented assessment and plan, with the following changes: none
== END 2021-11-22 13:43 | DRG 690 ==
LOC: EC 10:25 → 4SSUR 13:34
PROVIDERS: ADMIT Internal Medicine; ATTEND Internal Medicine
DX: N39.0 Urinary tract infection, site not specified (principal); S32.019A Unspecified fracture of first lumbar vertebra, initial encounter for closed fracture; I47.2 Ventricular tachycardia; I48.21 Permanent atrial fibrillation; I69.354 Hemiplegia and hemiparesis following cerebral infarction affecting left non-dominant side; W19.XXXA Unspecified fall, initial encounter; E11.9 Type 2 diabetes mellitus without complications; E78.5 Hyperlipidemia, unspecified; E83.42 Hypomagnesemia; E86.0 Dehydration; E87.6 Hypokalemia; F41.9 Anxiety disorder, unspecified; I10 Essential (primary) hypertension; I25.10 Atherosclerotic heart disease of native coronary artery without angina pectoris; I49.3 Ventricular premature depolarization; Z20.822 Contact with and (suspected) exposure to COVID-19; M43.16 Spondylolisthesis, lumbar region; M81.0 Age-related osteoporosis without current pathological fracture; R29.6 Repeated falls; S09.90XA Unspecified injury of head, initial encounter; Z79.01 Long term (current) use of anticoagulants; Z79.899 Other long term (current) drug therapy; Z82.3 Family history of stroke; Z82.49 Family history of ischemic heart disease and other diseases of the circulatory system; Z85.41 Personal history of malignant neoplasm of cervix uteri; Z87.440 Personal history of urinary (tract) infections; Z87.891 Personal history of nicotine dependence; Z90.710 Acquired absence of both cervix and uterus; Z95.0 Presence of cardiac pacemaker; R77.8 Other specified abnormalities of plasma proteins
CPT/HCPCS: 36415; 70450; 72110; 72125; 72170; 80048; 80053; 81001; 83605; 83735; 84132; 84145; 84484; 85025; 85027; 85610; 85730; 87040; 87635; 93005; 93306; 96365; 99285

== ENCOUNTER 2022-01-14 12:54 | Emergency (ER) | payer MEDICARE, BC ==
[2022-01-14 13:12] VITALS: TEMP 98.2
[2022-01-14] MEDS ORDERED: MECLIZINE 12.5 MG TAB PO STA (13:56)
[2022-01-14] MEDS ORDERED: SODIUM CHLORIDE 0.9% 500 ML 500 ML IV STA (13:56)
--- NOTE | 2022-01-14 13:56 | ED ---
General Adult HPI - General Chief complaint: Dizziness Stated complaint: Dizzy,Has pacemaker Time Seen by Provider: 01/14/22 13:20 Source: patient, RN notes reviewed, old records reviewed Mode of arrival: ambulatory Limitations: no limitations - History of Present Illness Initial comments: 81-year-old female presenting for evaluation of dizziness. She states that the room is spinning. This occurred while she was lying flat. Her symptoms began this morning shortly after breakfast. She denies any new focal numbness or weakness. 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 No headache. No abdominal pain. No vomiting. No central chest pain. She does have a vague chest discomfort under the left breast. The this is not described as severe pain. Is not radiating. She has previous history of pacemaker placement without known coronary artery disease according to the patient. - Related Data Home Medications Medication Instructions Recorded Confirmed Atorvastatin [Lipitor] 40 mg PO HS 04/05/17 01/14/22 Acetaminophen [Tylenol 8 Hour] 650 mg PO Q6H PRN 06/13/21 01/14/22 C,E,Zinc,Copper 11/Icztr8j/Lut 1 cap PO DAILY 08/19/21 01/14/22 [Ocuvite Adult 50 Plus Softgel] Famotidine [Pepcid] 20 mg PO DAILY 08/19/21 01/14/22 Rivaroxaban [Xarelto] 15 mg PO W/SUPPER 08/19/21 01/14/22 Potassium Gluconate [Potassium 99 mg PO DAILY 01/14/22 01/14/22 Gluconate ER] carvediloL [Coreg*] 12.5 mg PO BID@1200,1700 01/14/22 01/14/22 hydrALAZINE HCL [Apresoline] 50 mg PO TID 01/14/22 01/14/22 Previous Rx's Medication Instructions Recorded Losartan [Cozaar] 50 mg PO DAILY tab 11/22/21 Magnesium Oxide [Mag-Ox] 400 mg PO DAILY 30 Days #30 tablet 11/22/21 Allergies Allergy/AdvReac Type Severity Reaction Status Date / Time amlodipine Allergy Anaphylaxis Verified 01/14/22 16:11 isosorbide mononitrate Allergy Rash/Hives Verified 01/14/22 16:11 [From Imdur] Review of Systems ROS Statement: Those systems with pertinent positive or pertinent negative responses have been documented in the HPI. ROS Other: All systems not noted in ROS Statement are negative. Past Medical History Past Medical History: Atrial Fibrillation, Cancer, CVA/TIA, Diabetes Mellitus, GERD/Reflux, Hyperlipidemia, Hypertension, Osteoarthritis (OA), Syncope Additional Past Medical History / Comment(s): CVA with L sided weakness, bradycardia/pacer, NIDDM type II/diet controlled since weight loss, cervical cancer with hysterectomy, recurrent UTIs/current UTI with antibiotic, diverticulitis, SBO/with bowel resection/diarrhea frequently since, osteoporosis, recent new bilateral pedal edema. History of Any Multi-Drug Resistant Organisms: None Reported Past Surgical History: Back Surgery, Bowel Resection, Heart Catheterization, Hysterectomy, Pacemaker Additional Past Surgical History / Comment(s): EGD, Colonoscopy, bilateral cataract removed, "fatty tumor" removed from her back, exp. laparotomy w/small bowel resection, EGD, colonoscopy, microlaryngoscopy with bx d/t sore throat, Past Anesthesia/Blood Transfusion Reactions: Motion Sickness Additional Past Anesthesia/Blood Transfusion Reaction / Comment(s): Pt has never recieved blood. SON "CODED" POST HIP REPLACEMENT Type of Cardiac Device: Permanent Pacemaker Device Placement Date:: 05/21/21 Past Psychological History: Anxiety Smoking Status: Former smoker Past Alcohol Use History: None Reported Past Drug Use History: None Reported - Past Family History Father Family Medical History: Myocardial Infarction ([place]) Additional Family Medical History / Comment(s): Father of a [place] at age 76yrs. Mother Family Medical History: CVA/TIA Additional Family Medical History / Comment(s): Mother had a CVA at age 88yrs. She at age 92yrs. General Exam Limitations: no limitations General appearance: alert, in no apparent distress Head exam: Present: atraumatic, normocephalic Eye exam: Present: normal appearance, PERRL ENT exam: Present: normal exam Neck exam: Present: normal inspection. Absent: tenderness, meningismus Respiratory exam: Present: normal lung sounds bilaterally. Absent: respiratory distress, wheezes Cardiovascular Exam: Present: regular rate, normal rhythm GI/Abdominal exam: Present: soft. Absent: distended, tenderness, guarding, rebound Extremities exam: Present: normal inspection, normal capillary refill. Absent: pedal edema Neurological exam: Present: alert, oriented X3, CN II-XII intact, motor sensory deficit (Slight weakness appreciated in the left lower extremity, 4 out of 5 strength.) Psychiatric exam: Present: normal affect, normal mood Skin exam: Present: warm, dry, intact. Absent: cyanosis, diaphoretic Course Vital Signs 01/14/22 01/14/22 13:10 14:10 Temperature 98.2 F Pulse Rate 70 64 Respiratory 20 18 Rate Blood Pressure 148/66 160/60 O2 Sat by Pulse 98 99 Oximetry EKG Findings - EKG Comments: EKG Findings:: EKG: Intrinsic rhythm rate of 68 with intermittent paced rhythm. QRS duration 84, QTC 421 Medical Decision Making - Medical Decision Making 81-year-old female with an episode of dizziness. Patient is not ataxic. Her vital signs are stable. She has no new focal neurologic findings. She has a previous weakness in the left leg which is unchanged from baseline according to the patient. Head CT is negative for acute intracranial hemorrhage or mass effect. Chest x-ray is clear. EKG is sinus rhythm. She has normal CBC, normal CMP, negative troponin, negative urinalysis. On reevaluation after meclizine and IV fluids she is feeling completely better. She's given strict return parameters. Discharged home with outpatient follow-up. - Lab Data Result diagrams: 01/14/22 13:57 01/14/22 13:57 Lab Results 01/14/22 01/14/22 01/14/22 Range/Units 13:57 13:57 13:57 WBC 7.4 (3.8-10.6) k/uL RBC 3.93 (3.80-5.40) m/uL Hgb 11.4 (11.4-16.0) gm/dL Hct 35.7 (34.0-46.0) % MCV 90.8 (80.0-100.0) fL MCH 29.1 (25.0-35.0) pg MCHC 32.1 (31.0-37.0) g/dL RDW 14.7 (11.5-15.5) % Plt Count 253 (150-450) k/uL MPV 7.9 Neutrophils % 64 % Lymphocytes % 25 % Monocytes % 8 % Eosinophils % 1 % Basophils % 1 % Neutrophils # 4.7 (1.3-7.7) k/uL Lymphocytes # 1.9 (1.0-4.8) k/uL Monocytes # 0.6 (0-1.0) k/uL Eosinophils # 0.1 (0-0.7) k/uL Basophils # 0.1 (0-0.2) k/uL PT 11.5 (9.0-12.0) sec INR 1.1 (<1.2) APTT 22.6 (22.0-30.0) sec Sodium 140 (137-145) mmol/L Potassium 4.0 (3.5-5.1) mmol/L Chloride 107 (98-107) mmol/L Carbon Dioxide 27 (22-30) mmol/L Anion Gap 6 mmol/L BUN 20 H (7-17) mg/dL Creatinine 0.63 (0.52-1.04) mg/dL Est GFR (CKD-EPI)AfAm >90 (>60 ml/min/1.73 sqM) Est GFR (CKD-EPI)NonAf 84 (>60 ml/min/1.73 sqM) Glucose 101 H (74-99) mg/dL Plasma Lactic Acid Manolo (0.7-2.0) mmol/L Calcium 9.1 (8.4-10.2) mg/dL Magnesium 1.7 (1.6-2.3) mg/dL Total Bilirubin 0.5 (0.2-1.3) mg/dL AST 22 (14-36) U/L ALT 26 (4-34) U/L Alkaline Phosphatase 52 (38-126) U/L Troponin I (0.000-0.034) ng/mL Total Protein 6.5 (6.3-8.2) g/dL Albumin 3.7 (3.5-5.0) g/dL Urine Color Urine Appearance (Clear) Urine pH (5.0-8.0) Ur Specific [place] (1.001-1.035) Urine Protein (Negative) Urine Glucose (UA) (Negative) Urine Ketones (Negative) Urine Blood (Negative) Urine Nitrite (Negative) Urine Bilirubin (Negative) Urine Urobilinogen (<2.0) mg/dL Ur Leukocyte Esterase (Negative) 01/14/22 01/14/22 01/14/22 Range/Units 13:57 13:57 16:25 WBC (3.8-10.6) k/uL RBC (3.80-5.40) m/uL Hgb (11.4-16.0) gm/dL Hct (34.0-46.0) % MCV (80.0-100.0) fL MCH (25.0-35.0) pg MCHC (31.0-37.0) g/dL RDW (11.5-15.5) % Plt Count (150-450) k/uL MPV Neutrophils % % Lymphocytes % % Monocytes % % Eosinophils % % Basophils % % Neutrophils # (1.3-7.7) k/uL Lymphocytes # (1.0-4.8) k/uL Monocytes # (0-1.0) k/uL Eosinophils # (0-0.7) k/uL Basophils # (0-0.2) k/uL PT (9.0-12.0) sec INR (<1.2) APTT (22.0-30.0) sec Sodium (137-145) mmol/L Potassium (3.5-5.1) mmol/L Chloride (98-107) mmol/L Carbon Dioxide (22-30) mmol/L Anion Gap mmol/L BUN (7-17) mg/dL Creatinine (0.52-1.04) mg/dL Est GFR (CKD-EPI)AfAm (>60 ml/min/1.73 sqM) Est GFR (CKD-EPI)NonAf (>60 ml/min/1.73 sqM) Glucose (74-99) mg/dL Plasma Lactic Acid Manolo 0.9 (0.7-2.0) mmol/L Calcium (8.4-10.2) mg/dL Magnesium (1.6-2.3) mg/dL Total Bilirubin (0.2-1.3) mg/dL AST (14-36) U/L ALT (4-34) U/L Alkaline Phosphatase (38-126) U/L Troponin I <0.012 (0.000-0.034) ng/mL Total Protein (6.3-8.2) g/dL Albumin (3.5-5.0) g/dL Urine Color Light Yellow Urine Appearance Clear (Clear) Urine pH 7.0 (5.0-8.0) Ur Specific [place] 1.006 (1.001-1.035) Urine Protein Negative (Negative) Urine Glucose (UA) Negative (Negative) Urine Ketones Negative (Negative) Urine Blood Negative (Negative) Urine Nitrite Negative (Negative) Urine Bilirubin Negative (Negative) Urine Urobilinogen <2.0 (<2.0) mg/dL Ur Leukocyte Esterase Negative (Negative) Disposition Clinical Impression: Dehydration, Dizziness Disposition: HOME SELF-CARE Condition: Fair Instructions (If sedation given, give patient instructions): Dizziness (ED) Is patient prescribed a controlled substance at d/c from ED?: No Referrals: Gen Palma MD [Primary Care Provider] - 1-2 days Time of Disposition: 16:46
[2022-01-14 14:11] LABS: Basophils # (A) 0.1 k/uL (0-0.2); Basophils % (A) 1 %; Eosinophils # (A) 0.1 k/uL (0-0.7); Eosinophils % (A) 1 %; HCT 35.7 % (34.0-46.0); HGB 11.4 gm/dL (11.4-16.0); Lymphocytes # (A) 1.9 k/uL (1.0-4.8); Lymphocytes % (A) 25 %; MCH 29.1 pg (25.0-35.0); MCHC 32.1 g/dL (31.0-37.0); MCV 90.8 fL (80.0-100.0); Mean Platelet Volume 7.9; Monocytes # (A) 0.6 k/uL (0-1.0); Monocytes % (A) 8 %; Neutrophils # (A) 4.7 k/uL (1.3-7.7); Neutrophils % (A) 64 %; Platelet Count 253 k/uL (150-450); RBC 3.93 m/uL (3.80-5.40); RDW 14.7 % (11.5-15.5); WBC 7.4 k/uL (3.8-10.6)
[2022-01-14 14:21] LABS: ALT 26 U/L (4-34); AST 22 U/L (14-36); African American GFR (CKD) >90 (>60 ml/min/1.73 sqM); Albumin 3.7 g/dL (3.5-5.0); Alkaline Phosphatase 52 U/L (38-126); Anion Gap 6 mmol/L; Blood Urea Nitrogen 20 mg/dL (7-17); Calcium 9.1 mg/dL (8.4-10.2); Carbon Dioxide 27 mmol/L (22-30); Chloride 107 mmol/L (98-107); Glucose 101 mg/dL (74-99); Magnesium 1.7 mg/dL (1.6-2.3); Non-African American GFR(CKD) 84 (>60 ml/min/1.73 sqM); Sodium 140 mmol/L (137-145); Total Bilirubin 0.5 mg/dL (0.2-1.3); Total Protein 6.5 g/dL (6.3-8.2)
[2022-01-14 14:30] LABS: INR 1.1 (<1.2); Partial Thromboplastin Time 22.6 sec (22.0-30.0); Prothrombin Time 11.5 sec (9.0-12.0)
[2022-01-14 14:34] VITALS: BP 160/60; PULSE 64; RESP 18
--- NOTE | 2022-01-14 15:02 | XR ---
EXAMINATION TYPE: XR chest 2V DATE OF EXAM: 01/14/2022 COMPARISON: Chest x-ray 06/13/2021 HISTORY: Dizziness and weakness TECHNIQUE: Frontal and lateral views of the chest are obtained. FINDINGS: There is no focal air space opacity, pleural effusion, or pneumothorax seen. The cardiac silhouette size is within normal limits. There is a generator in the left pectoral region, lead with in the right ventricle. Aorta is dense. Nodular density in the right lower lobe is stable and calcifi ed. There is mitral annular calcification. The osseous structures are intact. IMPRESSION: No acute cardiopulmonary process.
--- NOTE | 2022-01-14 15:32 | CT ---
EXAMINATION TYPE: CT brain wo con DATE OF EXAM: 01/14/2022 COMPARISON: CT dated 11/18/2021 HISTORY: Dizziness, hx stroke CT DLP: 1119.4 mGycm Automated exposure control for dose reduction was used. TECHNIQUE: CT scan of the brain is performed without IV contrast administration. FINDINGS: Stable right medial frontal as well as left occipital areas of encephalomalacia with surrounding glio tic changes likely representing sequela of previous infarcts. Scattered arterial atherosclerotic calc ifications. Brain volume loss changes, likely age-related. Bilateral cerebral white matter hypodensities, likely representing chronic microvascular ischemic changes. No acute intracranial hemorrhage. No gross acute cortical infarct. No midline shift or herniation. Un remarkable basal cisterns, sella and CP angles. No gross space-occupying lesion. Unremarkable orbits. Clear visualized paranasal sinuses and mastoid air cells. Unremarkable calvarial bones. IMPRESSION: Stable chronic findings as described above. No acute intracranial hemorrhage or gross acute cortical infarct however a small acute or hyperacute infarct cannot be excluded. Other findings as described edmund james.
[2022-01-14 16:38] LABS: Appearance,Urine Clear (Clear); Bilirubin,Urine Negative (Negative); Blood,Urine Negative (Negative); Color,Urine Light Yellow; Glucose,Urine (UA) Negative (Negative); Ketones,Urine Negative (Negative); Leukocyte Esterase,Urine Negative (Negative); Nitrite,Urine Negative (Negative); Protein,Urine Negative (Negative); Specific Gravity,Urine 1.006 (1.001-1.035); Urobilinogen,Urine <2.0 mg/dL (<2.0)
== END 2022-01-14 16:54 | disposition home or self-care (01) ==
LOC: EC 12:54
DX: E86.0 Dehydration (principal); E11.9 Type 2 diabetes mellitus without complications; I10 Essential (primary) hypertension; I48.91 Unspecified atrial fibrillation; E78.5 Hyperlipidemia, unspecified; K21.9 Gastro-esophageal reflux disease without esophagitis; F41.9 Anxiety disorder, unspecified; Z87.891 Personal history of nicotine dependence; Z79.01 Long term (current) use of anticoagulants; Z79.899 Other long term (current) drug therapy
CPT/HCPCS: 36415; 70450; 71046; 80053; 81003; 83605; 83735; 84484; 85025; 85610; 85730; 93005; 99284

== ENCOUNTER 2022-04-27 18:19 | Emergency (ER) | payer MEDICARE, BC ==
[2022-04-27 18:25] VITALS: TEMP 98.2
[2022-04-27] MEDS ORDERED: MECLIZINE 12.5 MG TAB PO STA (18:34)
[2022-04-27] MEDS ORDERED: SODIUM CHLORIDE 0.9% 1,000 ML IV STA (18:34)
[2022-04-27 19:14] LABS: Basophils # (A) 0.1 k/uL (0-0.2); Basophils % (A) 1 %; Eosinophils # (A) 0.1 k/uL (0-0.7); Eosinophils % (A) 1 %; HCT 37.6 % (34.0-46.0); HGB 12.3 gm/dL (11.4-16.0); Lymphocytes % (A) 20 %; MCH 29.3 pg (25.0-35.0); MCHC 32.8 g/dL (31.0-37.0); MCV 89.4 fL (80.0-100.0); Mean Platelet Volume 7.4; Monocytes # (A) 0.8 k/uL (0-1.0); Monocytes % (A) 8 %; Neutrophils % (A) 69 %; Platelet Count 254 k/uL (150-450); RDW 13.8 % (11.5-15.5); WBC 10.1 k/uL (3.8-10.6)
[2022-04-27 19:21] LABS: ALT 22 U/L (4-34); AST 27 U/L (14-36); African American GFR (CKD) >90 (>60 ml/min/1.73 sqM); Alkaline Phosphatase 70 U/L (38-126); Anion Gap 8 mmol/L; Blood Urea Nitrogen 18 mg/dL (7-17); Calcium 9.5 mg/dL (8.4-10.2); Carbon Dioxide 24 mmol/L (22-30); Chloride 106 mmol/L (98-107); Glucose 91 mg/dL (74-99); Non-African American GFR(CKD) 84 (>60 ml/min/1.73 sqM); Potassium 4.1 mmol/L (3.5-5.1); Sodium 138 mmol/L (137-145); Total Bilirubin 0.7 mg/dL (0.2-1.3); Total Protein 6.8 g/dL (6.3-8.2)
[2022-04-27 19:24] LABS: Appearance,Urine Cloudy (Clear); Bacteria,Urine Occasional /hpf; Bilirubin,Urine Negative (Negative); Blood,Urine Negative (Negative); Color,Urine Light Yellow; Glucose,Urine (UA) Negative (Negative); Ketones,Urine Negative (Negative); Leukocyte Esterase,Urine Large (Negative); Nitrite,Urine Negative (Negative); PH, Urine 6.5 (5.0-8.0); Protein,Urine Negative (Negative); RBC,Urine 3 /hpf (0-5); Specific Gravity,Urine 1.011 (1.001-1.035); Squamous Epithelial Cell,Urine 2 /hpf (0-4); Urobilinogen,Urine <2.0 mg/dL (<2.0); WBC,Urine >182 /hpf (0-5)
--- NOTE | 2022-04-27 19:37 | CT ---
EXAMINATION TYPE: CT brain wo con CT DLP: 1055.4 mGycm, Automated exposure control for dose reduction was used. DATE OF EXAM: 04/27/2022 7:17 PM COMPARISON: CT 05/21/2021. CLINICAL INDICATION:Female, 81 years old with history of SMITH/dizzy, dizzy, SMITH TECHNIQUE: Brain: Multiple axial CT images of the brain were obtained without IV contrast. FINDINGS: Brain: Extra-axial spaces: No abnormal extra-axial fluid collections. Ventricular system: Within normal limits Cerebral parenchyma: Encephalomalacia of the right centrum semiovale and left parietal/occipital oneil on from prior injury. No acute intraparenchymal hemorrhage or mass effect. The briseno-white junction i s well differentiated. Cerebellum: Unremarkable. Mass effect: No evidence of midline shift. Intracranial vasculature: Atherosclerotic calcifications of the intracranial vessels. Soft tissues: Normal. Calvarium/osseous structures: No depressed skull fracture. Paranasal sinuses and mastoid air cells: Mild scattered paranasal sinus disease. Visualized orbits: Bilateral aphakia IMPRESSION: 1. No acute intracranial process. 2. Remote injury to the right centrum semiovale and left parietal occipital region.
[2022-04-27] MEDS ORDERED: cefTRIAXone IN SWFI 1,000 MG/10 ML SYRINGE IVP STA (19:40)
--- NOTE | 2022-04-27 19:48 | ED ---
General Adult HPI - General Chief complaint: Dizziness Stated complaint: dizziness Time Seen by Provider: 04/27/22 18:21 Source: patient, EMS, RN notes reviewed, old records reviewed Mode of arrival: EMS Limitations: no limitations - History of Present Illness Initial comments: 81-year-old female with dizziness, room spinning sensation per patient has had episodes similar to this in the past. She does report a mild headache. No chest pain. No palpitations. No vomiting or diarrhea. She has been eating and drinking well. No fever. No dysuria or hematuria. No new focal numbness or weakness. She has residual left leg weakness from previous CVA. Her similar episodes in the past have been significantly improved with meclizine. - Related Data Home Medications Medication Instructions Recorded Confirmed Atorvastatin [Lipitor] 40 mg PO HS 04/05/17 01/14/22 Acetaminophen [Tylenol 8 Hour] 650 mg PO Q6H PRN 06/13/21 01/14/22 C,E,Zinc,Copper 11/Ehska9l/Lut 1 cap PO DAILY 08/19/21 01/14/22 [Ocuvite Adult 50 Plus Softgel] Famotidine [Pepcid] 20 mg PO DAILY 08/19/21 01/14/22 Rivaroxaban [Xarelto] 15 mg PO W/SUPPER 08/19/21 01/14/22 Potassium Gluconate [Potassium 99 mg PO DAILY 01/14/22 01/14/22 Gluconate ER] carvediloL [Coreg*] 12.5 mg PO BID@1200,1700 01/14/22 01/14/22 hydrALAZINE HCL [Apresoline] 50 mg PO TID 01/14/22 01/14/22 Previous Rx's Medication Instructions Recorded Losartan [Cozaar] 50 mg PO DAILY tab 11/22/21 Magnesium Oxide [Mag-Ox] 400 mg PO DAILY 30 Days #30 tablet 11/22/21 Cephalexin [Keflex] 500 mg PO Q12HR #20 cap 04/27/22 Allergies Allergy/AdvReac Type Severity Reaction Status Date / Time amlodipine Allergy Anaphylaxis Verified 04/27/22 18:26 isosorbide mononitrate Allergy Rash/Hives Verified 04/27/22 18:26 [From Imdur] Review of Systems ROS Statement: Those systems with pertinent positive or pertinent negative responses have been documented in the HPI. ROS Other: All systems not noted in ROS Statement are negative. Past Medical History Past Medical History: Atrial Fibrillation, Cancer, CVA/TIA, Diabetes Mellitus, GERD/Reflux, Hyperlipidemia, Hypertension, Osteoarthritis (OA), Syncope Additional Past Medical History / Comment(s): CVA with L sided weakness, bradycardia/pacer, NIDDM type II/diet controlled since weight loss, cervical cancer with hysterectomy, recurrent UTIs/current UTI with antibiotic, diverticulitis, SBO/with bowel resection/diarrhea frequently since, osteoporosis, recent new bilateral pedal edema. History of Any Multi-Drug Resistant Organisms: None Reported Past Surgical History: Back Surgery, Bowel Resection, Heart Catheterization, Hysterectomy, Pacemaker Additional Past Surgical History / Comment(s): EGD, Colonoscopy, bilateral cataract removed, "fatty tumor" removed from her back, exp. laparotomy w/small bowel resection, EGD, colonoscopy, microlaryngoscopy with bx d/t sore throat, Past Anesthesia/Blood Transfusion Reactions: Motion Sickness Additional Past Anesthesia/Blood Transfusion Reaction / Comment(s): Pt has never recieved blood. SON "CODED" POST HIP REPLACEMENT Type of Cardiac Device: Permanent Pacemaker Device Placement Date:: 05/21/21 Past Psychological History: Anxiety Smoking Status: Former smoker Past Alcohol Use History: None Reported Past Drug Use History: None Reported - Past Family History Father Family Medical History: Myocardial Infarction ([place]) Additional Family Medical History / Comment(s): Father of a [place] at age 76yrs. Mother Family Medical History: CVA/TIA Additional Family Medical History / Comment(s): Mother had a CVA at age 88yrs. She at age 92yrs. General Exam Limitations: no limitations General appearance: alert, in no apparent distress Head exam: Present: atraumatic, normocephalic Eye exam: Present: normal appearance, PERRL ENT exam: Present: normal exam, mucous membranes moist Neck exam: Present: normal inspection. Absent: tenderness, meningismus Respiratory exam: Present: normal lung sounds bilaterally. Absent: respiratory distress, wheezes Cardiovascular Exam: Present: regular rate, irregular rhythm GI/Abdominal exam: Present: soft. Absent: distended, tenderness, guarding Extremities exam: Present: normal inspection, normal capillary refill Neurological exam: Present: alert, oriented X3, CN II-XII intact. Absent: motor sensory deficit Psychiatric exam: Present: normal affect, normal mood Skin exam: Present: warm, dry, intact. Absent: cyanosis, diaphoretic Course Vital Signs 04/27/22 18:21 Temperature 98.2 F Pulse Rate 70 Respiratory 18 Rate Blood Pressure 172/81 EKG Findings - EKG Comments: EKG Findings:: EKG: Suspect underlying A. fib with intermittent pacer rate of 65, QRS duration 90, QTC 43 Medical Decision Making - Medical Decision Making 81-year-old female with vertigo like symptoms. Patient did report a mild headache. She is on Xarelto therefore CT imaging was performed. Negative for intracranial hemorrhage, shows remote infarct. Normal CBC, normal CMP, urinal ysis showing greater than 182 white cells and occasional bacteria. Urine culture pending. Antibiotics initiated in the emergency department as they may be contributing to her symptoms. Patient feeling better on reevaluation. She's accompanied by her son. She is eager for discharge. She started on antibiotics with return parameters. She will follow with her primary care physician. - Lab Data Result diagrams: 04/27/22 19:06 04/27/22 19:06 Lab Results 04/27/22 04/27/22 04/27/22 Range/Units 19:06 19:06 19:06 WBC 10.1 (3.8-10.6) k/uL RBC 4.20 (3.80-5.40) m/uL Hgb 12.3 (11.4-16.0) gm/dL Hct 37.6 (34.0-46.0) % MCV 89.4 (80.0-100.0) fL MCH 29.3 (25.0-35.0) pg MCHC 32.8 (31.0-37.0) g/dL RDW 13.8 (11.5-15.5) % Plt Count 254 (150-450) k/uL MPV 7.4 Neutrophils % 69 % Lymphocytes % 20 % Monocytes % 8 % Eosinophils % 1 % Basophils % 1 % Neutrophils # 7.0 (1.3-7.7) k/uL Lymphocytes # 2.0 (1.0-4.8) k/uL Monocytes # 0.8 (0-1.0) k/uL Eosinophils # 0.1 (0-0.7) k/uL Basophils # 0.1 (0-0.2) k/uL Sodium 138 (137-145) mmol/L Potassium 4.1 (3.5-5.1) mmol/L Chloride 106 (98-107) mmol/L Carbon Dioxide 24 (22-30) mmol/L Anion Gap 8 mmol/L BUN 18 H (7-17) mg/dL Creatinine 0.65 (0.52-1.04) mg/dL Est GFR (CKD-EPI)AfAm >90 (>60 ml/min/1.73 sqM) Est GFR (CKD-EPI)NonAf 84 (>60 ml/min/1.73 sqM) Glucose 91 (74-99) mg/dL Calcium 9.5 (8.4-10.2) mg/dL Total Bilirubin 0.7 (0.2-1.3) mg/dL AST 27 (14-36) U/L ALT 22 (4-34) U/L Alkaline Phosphatase 70 (38-126) U/L Total Protein 6.8 (6.3-8.2) g/dL Albumin 4.0 (3.5-5.0) g/dL Urine Color Light Yellow Urine Appearance Cloudy H (Clear) Urine pH 6.5 (5.0-8.0) Ur Specific [place] 1.011 (1.001-1.035) Urine Protein Negative (Negative) Urine Glucose (UA) Negative (Negative) Urine Ketones Negative (Negative) Urine Blood Negative (Negative) Urine Nitrite Negative (Negative) Urine Bilirubin Negative (Negative) Urine Urobilinogen <2.0 (<2.0) mg/dL Ur Leukocyte Esterase Large H (Negative) Urine RBC 3 (0-5) /hpf Urine WBC >182 H (0-5) /hpf Urine WBC Clumps Few H (None) /hpf Ur Squamous Epith Cells 2 (0-4) /hpf Urine Bacteria Occasional H (None) /hpf Disposition Clinical Impression: UTI (urinary tract infection), Vertigo Disposition: HOME SELF-CARE Condition: Fair Instructions (If sedation given, give patient instructions): Dizziness (ED), Urinary Tract Infection in Women (ED) Prescriptions: Cephalexin [Keflex] 500 mg PO Q12HR #20 cap Is patient prescribed a controlled substance at d/c from ED?: No Referrals: Gen Palma MD [Primary Care Provider] - 1-2 days Time of Disposition: 19:54
[2022-04-27 20:30] VITALS: BP 145/57; PULSE 68; RESP 16
== END 2022-04-27 20:39 | disposition home or self-care (01) ==
LOC: EC 18:19
DX: N39.0 Urinary tract infection, site not specified (principal); R42 Dizziness and giddiness; I48.91 Unspecified atrial fibrillation; E11.9 Type 2 diabetes mellitus without complications; K21.9 Gastro-esophageal reflux disease without esophagitis; E78.5 Hyperlipidemia, unspecified; I10 Essential (primary) hypertension; Z87.891 Personal history of nicotine dependence; Z88.8 Allergy status to other drugs, medicaments and biological substances; Z79.899 Other long term (current) drug therapy; Z79.02 Long term (current) use of antithrombotics/antiplatelets
CPT/HCPCS: 36415; 93005; 80053; 85025; 81001; 87086; 87077; 87186; 70450; 99284; 96374; 96361; J0696

== ENCOUNTER 2022-07-03 01:22 | Inpatient (IN) | payer MEDICARE, BC ==
[2022-07-03] MEDS ORDERED: SODIUM CHLORIDE 0.9% 500 ML 500 ML IV STA (01:28)
[2022-07-03] MEDS ORDERED: ONDANSETRON 4 MG/2 ML VIAL IVP STA (01:28)
[2022-07-03] MEDS ORDERED: SODIUM CHLORIDE 0.9% 1,000 ML IV STA (01:28)
[2022-07-03] MEDS ORDERED: MORPHINE SULFATE 2 MG/ML SYRINGE IVP STA (01:28)
--- NOTE | 2022-07-03 01:29 | ED ---
Fall HPI - General Stated Complaint: fall Time Seen by Provider: 07/03/22 01:28 Source: RN notes reviewed, old records reviewed Mode of arrival: EMS Limitations: no limitations - History of Present Illness Initial Comments: This is an 81-year-old female to the emergency department for evaluation. Patient Dese status post fall fall with left hip pain. Left hip pain significant, unable to ablate patient presents by EMS for left hip pain and deformity. 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 Witnessed: no Place Fall Occurred: home Loss of Consciousness: none Prolonged Down Time?: no Symptoms Prior to Fall: none Location - Extremities: Left: Thigh Severity: moderate Severity scale (1-10): 5 Quality: stabbing Context: tripped/slipped Associated Symptoms: denies - Related Data Home Medications Medication Instructions Recorded Confirmed Atorvastatin [Lipitor] 40 mg PO HS 04/05/17 01/14/22 Acetaminophen [Tylenol 8 Hour] 650 mg PO Q6H PRN 06/13/21 01/14/22 C,E,Zinc,Copper 11/Bxwad5c/Lut 1 cap PO DAILY 08/19/21 01/14/22 [Ocuvite Adult 50 Plus Softgel] Famotidine [Pepcid] 20 mg PO DAILY 08/19/21 01/14/22 Rivaroxaban [Xarelto] 15 mg PO W/SUPPER 08/19/21 01/14/22 Potassium Gluconate [Potassium 99 mg PO DAILY 01/14/22 01/14/22 Gluconate ER] carvediloL [Coreg*] 12.5 mg PO BID@1200,1700 01/14/22 01/14/22 hydrALAZINE HCL [Apresoline] 50 mg PO TID 01/14/22 01/14/22 Previous Rx's Medication Instructions Recorded Losartan [Cozaar] 50 mg PO DAILY tab 11/22/21 Magnesium Oxide [Mag-Ox] 400 mg PO DAILY 30 Days #30 tablet 11/22/21 Cephalexin [Keflex] 500 mg PO Q12HR #20 cap 04/27/22 Allergies Allergy/AdvReac Type Severity Reaction Status Date / Time amlodipine Allergy Anaphylaxis Verified 07/03/22 02:22 isosorbide mononitrate Allergy Rash/Hives Verified 07/03/22 02:22 [From Imdur] Review of Systems ROS Statement: Those systems with pertinent positive or pertinent negative responses have been documented in the HPI. ROS Other: All systems not noted in ROS Statement are negative. Past Medical History Past Medical History: Atrial Fibrillation, Cancer, CVA/TIA, Diabetes Mellitus, GERD/Reflux, Hyperlipidemia, Hypertension, Osteoarthritis (OA), Syncope Additional Past Medical History / Comment(s): CVA with L sided weakness, bradycardia/pacer, NIDDM type II/diet controlled since weight loss, cervical cancer with hysterectomy, recurrent UTIs/current UTI with antibiotic, diverticul itis, SBO/with bowel resection/diarrhea frequently since, osteoporosis, recent new bilateral pedal edema. History of Any Multi-Drug Resistant Organisms: None Reported Past Surgical History: Back Surgery, Bowel Resection, Heart Catheterization, Hysterectomy, Pacemaker Additional Past Surgical History / Comment(s): EGD, Colonoscopy, bilateral cataract removed, "fatty tumor" removed from her back, exp. laparotomy w/small bowel resection, EGD, colonoscopy, microlaryngoscopy with bx d/t sore throat, Past Anesthesia/Blood Transfusion Reactions: Motion Sickness Additional Past Anesthesia/Blood Transfusion Reaction / Comment(s): Pt has never recieved blood. SON "CODED" POST HIP REPLACEMENT Type of Cardiac Device: Permanent Pacemaker Device Placement Date:: 05/21/21 Past Psychological History: Anxiety Smoking Status: Former smoker Past Alcohol Use History: None Reported Past Drug Use History: None Reported - Past Family History Father Family Medical History: Myocardial Infarction ([place]) Additional Family Medical History / Comment(s): Father of a [place] at age 76yrs. Mother Family Medical History: CVA/TIA Additional Family Medical History / Comment(s): Mother had a CVA at age 88yrs. She at age 92yrs. General Exam General appearance: alert, in no apparent distress Head exam: Present: atraumatic, normocephalic, normal inspection Eye exam: Present: normal appearance, PERRL, EOMI. Absent: scleral icterus, conjunctival injection, periorbital swelling ENT exam: Present: normal exam, mucous membranes moist Neck exam: Present: normal inspection. Absent: tenderness, meningismus, lymphadenopathy Respiratory exam: Present: normal lung sounds bilaterally. Absent: respiratory distress, wheezes, rales, rhonchi, stridor Cardiovascular Exam: Present: regular rate, normal rhythm, normal heart sounds. Absent: systolic murmur, diastolic murmur, rubs, gallop, clicks GI/Abdominal exam: Present: soft, normal bowel sounds. Absent: distended, tenderness, guarding, rebound, rigid Extremities exam: Present: normal inspection, full ROM, normal capillary refill, other (Left hip pain and deformity shortening and rotation). Absent: t enderness, pedal edema, joint swelling, calf tenderness Back exam: Present: normal inspection Neurological exam: Present: alert, oriented X3, CN II-XII intact Psychiatric exam: Present: normal affect, normal mood Skin exam: Present: warm, dry, intact, normal color. Absent: rash Course Vital Signs 07/03/22 02:22 Temperature 98.6 F Pulse Rate 77 Respiratory 15 Rate Blood Pressure 127/68 O2 Sat by Pulse 98 Oximetry - Reevaluation(s) Reevaluation #1: 07/03/22 04:10 Medical record is reviewed Reevaluation #2: 07/03/22 04:10 Patient informed results and questions answered - Consultations Consultation #1: Spoke with orthopedic associates will admit the patient for further evaluation management Medical Decision Making - Medical Decision Making 81 female status post slip and fall. Patient does have left hip fracture patient given pain control can be discharged home - Lab Data Result diagrams: 07/03/22 02:37 07/03/22 02:37 Lab Results 07/03/22 07/03/22 07/03/22 Range/Units 02:37 02:37 02:37 WBC 11.5 H (3.8-10.6) k/uL RBC 3.87 (3.80-5.40) m/uL Hgb 11.3 L (11.4-16.0) gm/dL Hct 35.0 (34.0-46.0) % MCV 90.5 (80.0-100.0) fL MCH 29.1 (25.0-35.0) pg MCHC 32.2 (31.0-37.0) g/dL RDW 14.2 (11.5-15.5) % Plt Count 214 (150-450) k/uL MPV 8.2 Neutrophils % 81 % Lymphocytes % 8 % Monocytes % 9 % Eosinophils % 1 % Basophils % 0 % Neutrophils # 9.3 H (1.3-7.7) k/uL Lymphocytes # 0.9 L (1.0-4.8) k/uL Monocytes # 1.0 (0-1.0) k/uL Eosinophils # 0.1 (0-0.7) k/uL Basophils # 0.0 (0-0.2) k/uL Sodium 137 (137-145) mmol/L Potassium 4.3 (3.5-5.1) mmol/L Chloride 103 (98-107) mmol/L Carbon Dioxide 22 (22-30) mmol/L Anion Gap 12 mmol/L BUN 28 H (7-17) mg/dL Creatinine 0.70 (0.52-1.04) mg/dL Est GFR (CKD-EPI)AfAm >90 (>60 ml/min/1.73 sqM) Est GFR (CKD-EPI)NonAf 82 (>60 ml/min/1.73 sqM) Glucose 113 H (74-99) mg/dL Calcium 9.2 (8.4-10.2) mg/dL Phosphorus 3.4 (2.5-4.5) mg/dL Magnesium 1.6 (1.6-2.3) mg/dL Total Bilirubin 0.7 (0.2-1.3) mg/dL AST 25 (14-36) U/L ALT 16 (4-34) U/L Alkaline Phosphatase 63 (38-126) U/L Troponin I <0.012 (0.000-0.034) ng/mL Total Protein 6.5 (6.3-8.2) g/dL Albumin 3.9 (3.5-5.0) g/dL - Radiology Data Radiology results: report reviewed (X-ray chest, left hip x-rays positive for IT fracture), image reviewed Disposition Clinical Impression: Fall, Fracture, intertrochanteric, left femur Disposition: ADMITTED IP TO THIS HOSP Condition: Fair Is patient prescribed a controlled substance at d/c from ED?: No Referrals: Gen Palma MD [Primary Care Provider] - 1-2 days Time of Disposition: 04:15
[2022-07-03 03:11] LABS: Basophils % (A) 0 %; Eosinophils # (A) 0.1 k/uL (0-0.7); Eosinophils % (A) 1 %; HGB 11.3 gm/dL (11.4-16.0); Lymphocytes # (A) 0.9 k/uL (1.0-4.8); Lymphocytes % (A) 8 %; MCH 29.1 pg (25.0-35.0); MCHC 32.2 g/dL (31.0-37.0); MCV 90.5 fL (80.0-100.0); Mean Platelet Volume 8.2; Monocytes % (A) 9 %; Neutrophils # (A) 9.3 k/uL (1.3-7.7); Neutrophils % (A) 81 %; Platelet Count 214 k/uL (150-450); RBC 3.87 m/uL (3.80-5.40); RDW 14.2 % (11.5-15.5); WBC 11.5 k/uL (3.8-10.6)
--- NOTE | 2022-07-03 03:21 | XR ---
EXAMINATION TYPE: XR Hip LT and AP Pelvis DATE OF EXAM: 07/03/2022 COMPARISON: 07/26/2017 HISTORY: Pain TECHNIQUE: 3 views FINDINGS: There is acute comminuted intertrochanteric fracture left femur. No significant displacemen t. There is minimal impaction. No dislocation. The pelvic ring is intact. There is vascular calcifica tion. IMPRESSION: Acute intertrochanteric fracture left femur.
--- NOTE | 2022-07-03 03:22 | XR ---
EXAMINATION TYPE: XR knee limited LT DATE OF EXAM: 07/03/2022 COMPARISON: NONE HISTORY: Pain TECHNIQUE: 2 views FINDINGS: There is no evidence of fracture nor dislocation. No sign of knee joint effusion. The joint spaces are fairly normal. Exam limited by positioning. IMPRESSION: No fracture.
--- NOTE | 2022-07-03 03:23 | XR ---
EXAMINATION TYPE: XR chest 1V portable DATE OF EXAM: 07/03/2022 COMPARISON: 01/14/2022 HISTORY: Fall. Pain TECHNIQUE: Single view FINDINGS: There is no heart failure nor confluent pneumonic infiltrate. Costophrenic angles are clear . There is left axillary pacemaker. Thoracic aorta is atheromatous. Bony thorax is intact. IMPRESSION: No active cardiopulmonary disease. No change.
[2022-07-03 03:35] LABS: ALT 16 U/L (4-34); AST 25 U/L (14-36); African American GFR (CKD) >90 (>60 ml/min/1.73 sqM); Albumin 3.9 g/dL (3.5-5.0); Alkaline Phosphatase 63 U/L (38-126); Anion Gap 12 mmol/L; Blood Urea Nitrogen 28 mg/dL (7-17); Calcium 9.2 mg/dL (8.4-10.2); Carbon Dioxide 22 mmol/L (22-30); Chloride 103 mmol/L (98-107); Glucose 113 mg/dL (74-99); Magnesium 1.6 mg/dL (1.6-2.3); Non-African American GFR(CKD) 82 (>60 ml/min/1.73 sqM); Phosphorus 3.4 mg/dL (2.5-4.5); Sodium 137 mmol/L (137-145); Total Bilirubin 0.7 mg/dL (0.2-1.3); Total Protein 6.5 g/dL (6.3-8.2)
[2022-07-03 03:52] LABS: Prothrombin Time 11.3 sec (9.0-12.0)
[2022-07-03 03:57] LABS: Potassium 4.3 mmol/L (3.5-5.1)
[2022-07-03] MEDS ORDERED: ONDANSETRON 4 MG/2 ML VIAL IVP PRN (04:07)
[2022-07-03] MEDS ORDERED: NALOXONE 0.4 MG/ML 1 ML VIAL IV PRN (04:07)
[2022-07-03] MEDS ORDERED: HYDROmorphone 1 MG/ML 1 ML SYRINGE IVP STA (04:51)
[2022-07-03 09:25] LABS: Appearance,Urine Clear (Clear); Bacteria,Urine Few /hpf; Bilirubin,Urine Negative (Negative); Blood,Urine Negative (Negative); Color,Urine Yellow; Glucose,Urine (UA) Negative (Negative); Ketones,Urine Negative (Negative); Leukocyte Esterase,Urine Trace (Negative); Mucus,Urine Rare /hpf; Nitrite,Urine Positive (Negative); PH, Urine 5.5 (5.0-8.0); Protein,Urine Trace (Negative); RBC,Urine 1 /hpf (0-5); Squamous Epithelial Cell,Urine 1 /hpf (0-4); Urobilinogen,Urine <2.0 mg/dL (<2.0); WBC,Urine 9 /hpf (0-5)
[2022-07-03] MEDS: MORPHINE SULFATE 4 MG/ML SYRINGE IV PRN ×3 (10:14→21:23)
[2022-07-03] MEDS: SODIUM CHLORIDE 0.9% 1,000 ML IV SCH (10:15)
--- NOTE | 2022-07-03 11:18 | P.CNOR ---
History of Present Illness - HPI Consult date: 07/03/22 Requesting physician: James Nichols Consult reason: other (FFS with injury, Left Hip IT fracture) History of present illness: History of Presenting Illness Patient is a pleasant 81-year-old female who presented to the ER after a fall. Patient states she was getting up approximately at 11 PM on 07/02/2022 to go to the kitchen for a snack. She states when attempting to get out of bed she reached for her wheeled walker and the walker head moved out in front of her and she had fallen onto her left hip. Patient denies hitting her head or LOC. Patient was unable to ambulate and brought in by EMS. Patient is on blood thinner Eliquis. Review of Systems Pertinent positives and negatives as discussed in HPI, a complete review of systems was performed and all other systems are negative. Physical Examination General: The patient is awake and alert, in no acute distress Skin: Skin is warm and dry with no obvious rashes or lesions. Hairy patches absent, no dorsal skin dimples, no cafe au lait spots, and no surgical incisions. Eye: Pupils are equal, round and reactive to light, extra-ocular movements are intact; there is normal conjunctiva bilaterally. Neck: The neck is supple, there is no tenderness and ROM intact. Cardiovascular: There is a regular rate and rhythm. No murmur, rub or gallop is appreciated. Respiratory: Lungs are clear to auscultation, respirations are non-labored, breath sounds are equal. Gastrointestinal: Soft, non-distended, non-tender abdomen. Musculoskeletal: ROM Left hip limited secondary to pain and stiffness. Shoulder abduction 5/5, elbow flexors 5/5, wrist dorsiflexors 5/5. finger abductor 5/5, land management forester 5/5, hip flexor 5/5, left hip flexor 2/5, knee flexor 5/5, ankle dorsiflexor 5/5, ankle plantarflexion 5/5 and extensor hallucis 5/5. Neurological: CN 2-12 intact. There are no obvious motor or sensory deficits. Movement and coordination equal and intact. Sensory exam to light touch intact C5-T1 and intact from L2-S1. Reflexes 2/4 in bilateral upper and lower extremities. Negative Hoffmans, babinski, and clonus signs. Psychiatric: Cooperative, appropriate mood & affect, normal judgment. Assessment and Plan 1.) Left hip IT fracture s/p FFS 2.) Cardiology and Medical Clearance 3.) NPO at Midnight 4.) Left Hip IT nailing procedure scheduled for tomorrow afternoon 07/04/22. 5.) Alfaro catheter/nonweight bearing b/l LUE. I reviewed and discussed this case with my attending Dr. Nichols, whom has reviewed this chart and films and is in agreement with assessment and plan of care as outlined above. I have personally seen and examined the patient, performed the documentation and the assessment and plan as written. Number of minutes spent on the visit: 25m. Past Medical History Past Medical History: Atrial Fibrillation, Cancer, CVA/TIA, Diabetes Mellitus, GERD/Reflux, Hyperlipidemia, Hypertension, Osteoarthritis (OA), Syncope Additional Past Medical History / Comment(s): CVA with L sided weakness, bradycardia/pacer, NIDDM type II/diet controlled since weight loss, cervical cancer with hysterectomy, recurrent UTIs/current UTI with antibiotic, diverticulitis, SBO/with bowel resection/diarrhea frequently since, osteoporosis, recent new bilateral pedal edema. History of Any Multi-Drug Resistant Organisms: None Reported Past Surgical History: Back Surgery, Bowel Resection, Heart Catheterization, Hysterectomy, Pacemaker Additional Past Surgical History / Comment(s): EGD, Colonoscopy, bilateral cataract removed, "fatty tumor" removed from her back, exp. laparotomy w/small bowel resection, EGD, colonoscopy, microlaryngoscopy with bx d/t sore throat, Past Anesthesia/Blood Transfusion Reactions: Motion Sickness Additional Past Anesthesia/Blood Transfusion Reaction / Comm: Pt has never recieved blood. SON "CODED" POST HIP REPLACEMENT Type of Cardiac Device: Permanent Pacemaker Device Placement Date:: 05/21/21 Past Psychological History: Anxiety Smoking Status: Former smoker Past Alcohol Use History: None Reported Past Drug Use History: None Reported - Past Family History Father Family Medical History: Myocardial Infarction ([place]) Additional Family Medical History / Comment(s): Father of a [place] at age 76yrs. Mother Family Medical History: CVA/TIA Additional Family Medical History / Comment(s): Mother had a CVA at age 88yrs. She at age 92yrs. Medications and Allergies Home Medications Medication Instructions Recorded Confirmed Type Atorvastatin [Lipitor] 40 mg PO HS 04/05/17 07/03/22 History Acetaminophen [Tylenol 8 Hour] 650 mg PO Q8H PRN 06/13/21 07/03/22 History C,E,Zinc,Copper 11/Gzlyf0j/Lut 1 cap PO DAILY 08/19/21 07/03/22 History [Ocuvite Adult 50 Plus Softgel] Famotidine [Pepcid] 20 mg PO DAILY 08/19/21 07/03/22 History Rivaroxaban [Xarelto] 15 mg PO W/SUPPER 08/19/21 07/03/22 History Magnesium Oxide [Mag-Ox] 400 mg PO DAILY 30 Days #30 tablet 11/22/21 07/03/22 Rx Potassium Gluconate [Potassium 99 mg PO DAILY 01/14/22 07/03/22 History Gluconate ER] carvediloL [Coreg*] 12.5 mg PO BID@1200,1700 01/14/22 07/03/22 History hydrALAZINE HCL [Apresoline] 50 mg PO TID 01/14/22 07/03/22 History Lidocaine 5% Oint [Xylocaine 5% 1 applic TOPICAL TID PRN 07/03/22 07/03/22 History Oint] Losartan [Cozaar] 25 mg PO DAILY 07/03/22 07/03/22 History Nystatin/Triamcin 1 applic TOPICAL DAILY PRN 07/03/22 07/03/22 History [Nystatin-Triamcinolone Cream] Oxybutynin Xl [Ditropan XL] 5 mg PO DAILY 07/03/22 07/03/22 History Allergies Allergy/AdvReac Type Severity Reaction Status Date / Time amlodipine Allergy Anaphylaxis Verified 07/03/22 11:01 isosorbide mononitrate Allergy Rash/Hives Verified 07/03/22 11:01 [From dur] Physical Examination Osteopathic Statement: *. No significant issues noted on an osteopathic str uctural exam other than those noted in the History and Physical/Consult. Results - Labs Labs: Abnormal Lab Results - Last 24 Hours (Table) 07/03/22 07/03/22 07/03/22 Range/Units 02:37 02:37 02:37 WBC 11.5 H (3.8-10.6) k/uL Hgb 11.3 L (11.4-16.0) gm/dL Neutrophils # 9.3 H (1.3-7.7) k/uL Lymphocytes # 0.9 L (1.0-4.8) k/uL APTT 21.0 L (22.0-30.0) sec BUN 28 H (7-17) mg/dL Glucose 113 H (74-99) mg/dL Urine Protein (Negative) Urine Nitrite (Negative) Ur Leukocyte Esterase (Negative) Urine WBC (0-5) /hpf Urine Bacteria (None) /hpf Urine Mucus (None) /hpf 07/03/22 Range/Units Unknown WBC (3.8-10.6) k/uL Hgb (11.4-16.0) gm/dL Neutrophils # (1.3-7.7) k/uL Lymphocytes # (1.0-4.8) k/uL APTT (22.0-30.0) sec BUN (7-17) mg/dL Glucose (74-99) mg/dL Urine Protein Trace H (Negative) Urine Nitrite Positive H (Negative) Ur Leukocyte Esterase Trace H (Negative) Urine WBC 9 H (0-5) /hpf Urine Bacteria Few H (None) /hpf Urine Mucus Rare H (None) /hpf H & H 07/03/22 Range/Units 02:37 Hgb 11.3 L (11.4-16.0) gm/dL Hct 35.0 (34.0-46.0) % Coagulation 07/03/22 Range/Units 02:37 INR 1.0 (<1.2) Result Diagrams: 07/04/22 04:41 07/04/22 04:41
[2022-07-03] MEDS ORDERED: DEXTROSE 50% SYRINGE 50 ML IVP PRN ×2 (14:16)
--- NOTE | 2022-07-03 14:32 | P.CONS ---
History of Present Illness - Reason for Consult Consult date: 07/03/22 DM Requesting physician: Jaems Nichols - Chief Complaint fall - History of Present Illness Patient is an 81-year-old female with a history of CVA resulting with left-sided deficit, atrial fibrillation on Xarelto, sick sinus syndrome status post pacemaker, diabetes mellitus, and multiple other comorbid conditions who presented to the ER after a fall. She was found have an intertrochanteric left hip fracture. We're asked to consult for medical clearance. Patient seen and examined at bedside. She reports that yesterday she went to get out of bed and has a 4 wheeled walker. When she went to press forward slipped out from underneath her and she landed on her left hip. She denies any recent cough, cold, fever, flu, nausea, vomiting, diarrhea. She denies any recent chest pain or shortness of breath. She lives at [facility]. She does her own bathing and dressing. She does her own basic meal prep. She does have family helps with cooking and cleaning. She is able to walk and go grocery shopping with her walker. Pertinent positives and negatives as discussed in HPI, a complete review of systems was performed and all other systems are negative. Vital signs reviewed General: nontoxic, no distress, appears at stated age Derm: warm, dry Head: atraumatic, normocephalic, symmetric Eyes: EOMI, no lid lag, anicteric sclera, pupils equal round reactive to light ENT: Nose and ears atraumatic, no thrush, no pharyngeal erythema Neck: No thyromegaly, no cervical lymphadenopathy, trachea midline, supple Mouth: no lip lesion, mucus membranes moist Cardiovascular: S1S2 irreg, no murmur, positive posterior tibial pulse bilateral, no edema, capillary refill less than 2 seconds Lungs: Decreased bs bilateral, no rhonchi, no rales, no wheeze, no accessory muscle use Abdominal: soft, nontender to palpation, no guarding, no appreciable orga nomegaly, normal bowel sounds Ext: no gross muscle atrophy, muscle strength 5 out of 5 in b/l upper extremities, no contractures Neuro: CN II-XII grossly intact, light touch intact all 4 extremities, finger to nose within normal limits, Psych: Alert, oriented, appropriate affect Assessment/Plan: Preoperative risk assessment -Risk assessment completed with NSQIP risk score for intramedullary nailing of femur fracture. - Patient is below average risk for most things, she is above average risk for cardiac complications at 1.3%, urinary tract infection, and discharged to residential facility. I went over this risks and benefits with her and her family present at bedside. All questions answered. -I do not recommend any additional presurgical testing, other than EKG prior to surgery. Patient is medially optimized. -hold Xarelto - Shah - PT/OT - fall precautions A fib rate controlled on Xarelto - hold xarelto due to proposed surgery - coreg HTN, controlled - coreg, hydralazine, cozaar DM II - SSI - follow BS - Check A1C Chronic: CVA with residual left sided deficits HLD Thank you for allowing us to participate in the care of this pleasant patient. Do not hesitate to contact us with questions. Someone can be reached from the [facility] hospitalist group all hours of the day at [phone] or via [employer]. Past Medical History Past Medical History: Atrial Fibrillation, Cancer, CVA/TIA, Diabetes Mellitus, GERD/Reflux, Hyperlipidemia, Hypertension, Osteoarthritis (OA), Syncope Additional Past Medical History / Comment(s): CVA with L sided weakness, bradycardia/pacer, NIDDM type II/diet controlled since weight loss, cervical c ancer with hysterectomy, recurrent UTIs/current UTI with antibiotic, diverticulitis, SBO/with bowel resection/diarrhea frequently since, osteoporosis, recent new bilateral pedal edema. History of Any Multi-Drug Resistant Organisms: None Reported Past Surgical History: Back Surgery, Bowel Resection, Heart Catheterization, Hysterectomy, Pacemaker Additional Past Surgical History / Comment(s): EGD, Colonoscopy, bilateral cat aract removed, "fatty tumor" removed from her back, exp. laparotomy w/small bowel resection, EGD, colonoscopy, microlaryngoscopy with bx d/t sore throat, Past Anesthesia/Blood Transfusion Reactions: Motion Sickness Additional Past Anesthesia/Blood Transfusion Reaction / Comm: Pt has never recieved blood. SON "CODED" POST HIP REPLACEMENT Type of Cardiac Device: Permanent Pacemaker Device Placement Date:: 05/21/21 Past Psychological History: Anxiety Smoking Status: Former smoker Past Alcohol Use History: None Reported Past Drug Use History: None Reported - Past Family History Father Family Medical History: Myocardial Infarction ([place]) Additional Family Medical History / Comment(s): Father of a [place] at age 76yrs. Mother Family Medical History: CVA/TIA Additional Family Medical History / Comment(s): Mother had a CVA at age 88yrs. She at age 92yrs. Medications and Allergies Home Medications Medication Instructions Recorded Confirmed Type Atorvastatin [Lipitor] 40 mg PO HS 04/05/17 07/03/22 History Acetaminophen [Tylenol 8 Hour] 650 mg PO Q8H PRN 06/13/21 07/03/22 History C,E,Zinc,Copper 11/Ikkct9e/Lut 1 cap PO DAILY 08/19/21 07/03/22 History [Ocuvite Adult 50 Plus Softgel] Famotidine [Pepcid] 20 mg PO DAILY 08/19/21 07/03/22 History Rivaroxaban [Xarelto] 15 mg PO W/SUPPER 08/19/21 07/03/22 History Magnesium Oxide [Mag-Ox] 400 mg PO DAILY 30 Days #30 tablet 11/22/21 07/03/22 Rx Potassium Gluconate [Potassium 99 mg PO DAILY 01/14/22 07/03/22 History Gluconate ER] carvediloL [Coreg*] 12.5 mg PO BID@1200,1700 01/14/22 07/03/22 History hydrALAZINE HCL [Apresoline] 50 mg PO TID 01/14/22 07/03/22 History Lidocaine 5% Oint [Xylocaine 5% 1 applic TOPICAL TID PRN 07/03/22 07/03/22 History Oint] Losartan [Cozaar] 25 mg PO DAILY 07/03/22 07/03/22 History Nystatin/Triamcin 1 applic TOPICAL DAILY PRN 07/03/22 07/03/22 History [Nystatin-Triamcinolone Cream] Oxybutynin Xl [Ditropan XL] 5 mg PO DAILY 07/03/22 07/03/22 History Allergies Allergy/AdvReac Type Severity Reaction Status Date / Time amlodipine Allergy Anaphylaxis Verified 07/03/22 11:01 isosorbide mononitrate Allergy Rash/Hives Verified 07/03/22 11:01 [From Imdur] Physical Exam Osteopathic Statement: *. No significant issues noted on an osteopathic structural exam other than those noted in the History and Physical/Consult. Vitals: Vital Signs Temp Pulse Resp BP Pulse Ox 07/03/22 14:00 61 20 125/67 98 07/03/22 13:00 62 16 131/49 97 07/03/22 12:00 63 15 127/59 99 07/03/22 11:00 65 14 136/63 98 07/03/22 10:15 71 15 136/63 97 07/03/22 09:12 71 16 127/61 95 07/03/22 09:03 73 15 127/61 94 L 07/03/22 02:22 98.6 F 77 15 127/68 98 Intake and Output 07/02/22 07/03/22 07/03/22 22:59 06:59 14:59 Other: Weight 56.699 kg Results CBC & Chem 7: 07/03/22 02:37 07/03/22 02:37 Labs: Abnormal Lab Results - Last 24 Hours (Table) 07/03/22 07/03/22 07/03/22 Range/Units 02:37 02:37 02:37 WBC 11.5 H (3.8-10.6) k/uL Hgb 11.3 L (11.4-16.0) gm/dL Neutrophils # 9.3 H (1.3-7.7) k/uL Lymphocytes # 0.9 L (1.0-4.8) k/uL APTT 21.0 L (22.0-30.0) sec BUN 28 H (7-17) mg/dL Glucose 113 H (74-99) mg/dL Urine Protein (Negative) Urine Nitrite (Negative) Ur Leukocyte Esterase (Negative) Urine WBC (0-5) /hpf Urine Bacteria (None) /hpf Urine Mucus (None) /hpf 07/03/22 Range/Units Unknown WBC (3.8-10.6) k/uL Hgb (11.4-16.0) gm/dL Neutrophils # (1.3-7.7) k/uL Lymphocytes # (1.0-4.8) k/uL APTT (22.0-30.0) sec BUN (7-17) mg/dL Glucose (74-99) mg/dL Urine Protein Trace H (Negative) Urine Nitrite Positive H (Negative) Ur Leukocyte Esterase Trace H (Negative) Urine WBC 9 H (0-5) /hpf Urine Bacteria Few H (None) /hpf Urine Mucus Rare H (None) /hpf
[2022-07-03] MEDS: carvediloL 12.5 MG TAB PO SCH (16:48)
[2022-07-03] MEDS: hydrALAZINE HCL 50 MG TAB PO SCH ×2 (16:48→21:17)
[2022-07-03 17:40] LABS: Glucose,Whole Blood 92 mg/dL (70-110)
[2022-07-03] MEDS: INSULIN ASPART (NovoLOG) 100 UNIT/ML VIAL SQ SCH ×2 (17:42→21:13)
[2022-07-03 21:07] LABS: Glucose,Whole Blood 101 mg/dL (70-110)
[2022-07-03] MEDS: ATORVASTATIN 40 MG TAB PO SCH (21:17)
[2022-07-03] MEDS: ACETAMINOPHEN TAB 325 MG TAB PO PRN (21:20)
[2022-07-04] MEDS: MORPHINE SULFATE 4 MG/ML SYRINGE IV PRN ×2 (02:49→19:19)
[2022-07-04] MEDS: SODIUM CHLORIDE 0.9% 1,000 ML IV SCH ×3 (04:24→21:24)
[2022-07-04 05:20] LABS: African American GFR (CKD) >90 (>60 ml/min/1.73 sqM); Anion Gap 10 mmol/L; Blood Urea Nitrogen 15 mg/dL (7-17); Calcium 8.3 mg/dL (8.4-10.2); Carbon Dioxide 22 mmol/L (22-30); Chloride 104 mmol/L (98-107); Glucose 82 mg/dL (74-99); Non-African American GFR(CKD) 84 (>60 ml/min/1.73 sqM); Sodium 136 mmol/L (137-145)
[2022-07-04 05:43] LABS: Basophils % (A) 0 %; Eosinophils # (A) 0.1 k/uL (0-0.7); Eosinophils % (A) 1 %; HCT 30.8 % (34.0-46.0); Hypochromasia Slight; Lymphocytes # (A) 1.6 k/uL (1.0-4.8); Lymphocytes % (A) 18 %; MCH 29.3 pg (25.0-35.0); MCHC 31.6 g/dL (31.0-37.0); MCV 92.7 fL (80.0-100.0); Mean Platelet Volume 7.9; Monocytes # (A) 0.6 k/uL (0-1.0); Monocytes % (A) 7 %; Neutrophils # (A) 6.2 k/uL (1.3-7.7); Neutrophils % (A) 72 %; Platelet Count 199 k/uL (150-450); RBC 3.32 m/uL (3.80-5.40); RDW 14.4 % (11.5-15.5); WBC 8.6 k/uL (3.8-10.6)
[2022-07-04 05:44] LABS: HGB 9.7 gm/dL (11.4-16.0)
[2022-07-04] MEDS: ACETAMINOPHEN TAB 325 MG TAB PO PRN ×2 (05:44→11:44)
[2022-07-04 07:01] LABS: Glucose,Whole Blood 85 mg/dL (70-110)
[2022-07-04] MEDS: OXYBUTYNIN XL 5 MG TAB.ER.24 PO SCH (07:45)
[2022-07-04] MEDS: POTASSIUM CHLORIDE ER 10 MEQ TAB.ER.PRT PO SCH (07:45)
[2022-07-04] MEDS: INSULIN ASPART (NovoLOG) 100 UNIT/ML VIAL SQ SCH ×4 (07:45→21:25)
[2022-07-04] MEDS: FAMOTIDINE 20 MG TAB PO SCH (07:45)
[2022-07-04] MEDS: MAGNESIUM OXIDE 400 MG TAB PO SCH (07:45)
[2022-07-04] MEDS: LOSARTAN 25 MG TAB PO SCH (08:30)
[2022-07-04] MEDS: hydrALAZINE HCL 50 MG TAB PO SCH ×3 (08:30→23:56)
--- NOTE | 2022-07-04 10:14 | P.PN ---
Subjective Progress Note Date: 07/04/22 Patient is an 81-year-old female with a history of CVA resulting with left-sided deficit, atrial fibrillation on Xarelto, sick sinus syndrome status post pacemaker, diabetes mellitus, and multiple other comorbid conditions who presented to the ER after a fall. She was found have an intertrochanteric left hip fracture. Patient seen and examined at bedside. She states pain is well-controlled. She denies any chest pain, shortness breath, nausea. She is anxious to get her hip fixed. General: nontoxic, no distress, appears at stated age Derm: warm, dry Head: atraumatic, normocephalic, symmetric Eyes: EOMI, no lid lag, anicteric sclera Mouth: no lip lesion, mucus membranes moist Cardiovascular: S1S2 reg, no murmur, positive posterior tibial pulse bilateral, Lungs: Decreased bs bilateral, no rhonchi, no rales , no accessory muscle use Abdominal: soft, nontender to palpation, no guarding, no appreciable organomegaly Ext: no gross muscle atrophy, no edema, no contractures Neuro: CN II-XI grossly intact, no focal neuro deficits Psych: Alert, oriented, appropriate affect Assessment/Plan: Patient is an 81-year-old female with an acute intertrochanteric left femur fra cture -Plan is for or today with ortho -hold Xarelto - Alfaro - PT/OT - fall precautions A fib rate controlled on Xarelto - hold xarelto due to proposed surgery - coreg HTN, controlled - coreg, hydralazine, cozaar DM II - SSI - follow BS - Check A1C Chronic: CVA with residual left sided deficits HLD Thank you for allowing us to participate in the care of this pleasant patient. Do not hesitate to contact us with questions. Someone can be reached from the [facility] hospitalist group all hours of the day at [phone] or via [email or web address]. Objective - Vital Signs Vital signs: Vital Signs Temp 97.7 F 07/04/22 08:00 Pulse 75 07/04/22 08:00 Resp 16 07/04/22 08:00 BP 106/69 07/04/22 08:00 Pulse Ox 98 07/04/22 08:00 FiO2 Intake & Output 07/03/22 07/04/22 07/04/22 18:59 06:59 18:59 Output Total 450 Balance -450 Weight 56.699 kg Output: Urine 450 Other: Voiding Method Indwelling Catheter - Labs CBC & Chem 7: 07/04/22 04:41 07/04/22 04:41 Labs: Abnormal Lab Results - Last 24 Hours (Table) 07/04/22 07/04/22 07/04/22 Range/Units 04:41 04:41 04:41 RBC 3.32 L (3.80-5.40) m/uL Hgb 9.7 L D (11.4-16.0) gm/dL Hct 30.8 L (34.0-46.0) % Sodium 136 L (137-145) mmol/L Hemoglobin A1c 6.9 H (0.0-6.0) % Calcium 8.3 L (8.4-10.2) mg/dL
--- NOTE | 2022-07-04 11:17 | P.CRDCN ---
History of Present Illness History of present illness: This is a pleasant 81-year-old female past medical history significant for hypertension, hyperlipidemia, permanent atrial fibrillation on Xarelto, sick sinus syndrome status post single-chamber pacemaker 05/2021 CVA, type 2 diabetes, former smoker. She follows in the office with Dr. Carias. We have been asked to see in consultation for cardiac clearance. Patient presents emergency department after a fall at home. She states she was doing well at home and was getting up from bed and her walker went too far ahead of her and she fell onto her left hip. She denies any chest pain, lightheadedness, dizziness, near syncope or loss of consciousness, no shortness of breath. She was found to have a left hip intertrochanteric fracture of left femur. Orthopedics have evaluated the patient and plan for Left Hip Intertrochanter Nail today. DIAGNOSTICS -EKG reveals atrial fibrillation, PVC, heart rate 89, T wave inversion in leads V5, V6 and lead III. 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 CARDIOVASCULAR: Denies chest pain, shortness of breath, orthopnea, PND or palpitations. RESPIRATORY: Denies cough. GASTROINTESTINAL: Denies abdominal pain, diarrhea, constipation, nausea or vomiting. MUSCULOSKELETAL: Denies myalgias. NEUROLOGIC: Denies numbness, tingling, headacbe or weakness. ENDOCRINE: Denies fatigue, weight change, polydipsia or polyurina. GENITOURINARY: Denies burning, hematuria or urgency with micturation. HEMATOLOGIC: Denies history of anemia or bleeding. PHYSICAL EXAMINATION Blood pressure 106/69, 75, afebrile, oxygen saturations 98% on room air CONSTITUTIONAL: No apparent distress. HEENT: Head is normocephalic. Pupils are equal, round. Sclerae anicteric. Mucous membranes of the mouth are moist. No JVD. No carotid bruit. CHEST EXAMINATION: Lungs are clear to auscultation. No chest wall tenderness is noted on palpation or with deep breathing. HEART EXAMINATION: Irregular rate and rhythm. S1, S2 heard. No murmurs, gallops or rub. ABDOMEN: Soft, nontender. Positive bowel sounds. EXTREMITIES: 2+ peripheral pulses, no lower extremity edema and no calf tenderness. NEUROLOGIC EXAMINATION: Patient is awake, alert and oriented x3. ASSESSMENT Acute intertrochanteric fracture of left femur Mechanical fall at home Sick sinus syndrome status post single-chamber pacemaker implantation 05/2021 Hypertension Hyperlipidemia Permanent atrial fibrillation on Xarelto, currently on hold for surgery Non-obstructive coronary artery disease History of prior CVA Type 2 diabetes Former smoker PLAN -Patient states prior to the fall she is able to walk 2 flights of stairs without any symptoms of chest pain or shortness of breath, she is able to perform >4METs levels of activity. Patient is hemodynamically stable and does not have any acute cardiac conditions. There are no absolute contraindications to undergo surgery at this time. -Restart Xarelto as soon as able per Orthopedics recommendations -Continue home cardiac medications Nurse practitioner note has been reviewed by physician. Signing provider agrees with the documented findings, assessment, and plan of care. Past Medical History Past Medical History: Atrial Fibrillation, Cancer, CVA/TIA, Diabetes Mellitus, GERD/Reflux, Hyperlipidemia, Hypertension, Osteoarthritis (OA), Syncope Additional Past Medical History / Comment(s): CVA with L sided weakness, bradycardia/pacer, NIDDM type II/diet controlled since weight loss, cervical cancer with hysterectomy, recurrent UTIs/current UTI with antibiotic, diverticulitis, SBO/with bowel resection/diarrhea frequently since, osteoporosis, recent new bilateral pedal edema. History of Any Multi-Drug Resistant Organisms: None Reported Past Surgical History: Back Surgery, Bowel Resection, Heart Catheterization, Hysterectomy, Pacemaker Additional Past Surgical History / Comment(s): EGD, Colonoscopy, bilateral cataract removed, "fatty tumor" removed from her back, exp. laparotomy w/small bowel resection, EGD, colonoscopy, microlaryngoscopy with bx d/t sore throat, Past Anesthesia/Blood Transfusion Reactions: Motion Sickness Additional Past Anesthesia/Blood Transfusion Reaction / Comment(s): Pt has never recieved blood. SON "CODED" POST HIP REPLACEMENT Type of Cardiac Device: Permanent Pacemaker Device Placement Date:: 05/21/21 Past Psychological History: Anxiety Smoking Status: Former smoker Past Alcohol Use History: None Reported Past Drug Use History: None Reported - Past Family History Father Family Medical History: Myocardial Infarction ([place]) Additional Family Medical History / Comment(s): Father of a [place] at age 76yrs. Mother Family Medical History: CVA/TIA Additional Family Medical History / Comment(s): Mother had a CVA at age 88yrs. She at age 92yrs. Medications and Allergies Home Medications Medication Instructions Recorded Confirmed Type Atorvastatin [Lipitor] 40 mg PO HS 04/05/17 07/03/22 History Acetaminophen [Tylenol 8 Hour] 650 mg PO Q8H PRN 06/13/21 07/03/22 History C,E,Zinc,Copper 11/Mrmae3t/Lut 1 cap PO DAILY 08/19/21 07/03/22 History [Ocuvite Adult 50 Plus Softgel] Famotidine [Pepcid] 20 mg PO DAILY 08/19/21 07/03/22 History Rivaroxaban [Xarelto] 15 mg PO W/SUPPER 08/19/21 07/03/22 History Magnesium Oxide [Mag-Ox] 400 mg PO DAILY 30 Days #30 tablet 11/22/21 07/03/22 Rx Potassium Gluconate [Potassium 99 mg PO DAILY 01/14/22 07/03/22 History Gluconate ER] carvediloL [Coreg*] 12.5 mg PO BID@1200,1700 01/14/22 07/03/22 History hydrALAZINE HCL [Apresoline] 50 mg PO TID 01/14/22 07/03/22 History Lidocaine 5% Oint [Xylocaine 5% 1 applic TOPICAL TID PRN 07/03/22 07/03/22 History Oint] Losartan [Cozaar] 25 mg PO DAILY 07/03/22 07/03/22 History Nystatin/Triamcin 1 applic TOPICAL DAILY PRN 07/03/22 07/03/22 History [Nystatin-Triamcinolone Cream] Oxybutynin Xl [Ditropan XL] 5 mg PO DAILY 07/03/22 07/03/22 History Allergies Allergy/AdvReac Type Severity Reaction Status Date / Time amlodipine Allergy Anaphylaxis Verified 07/03/22 11:01 isosorbide mononitrate Allergy Rash/Hives Verified 07/03/22 11:01 [From dur] Physical Exam Vitals: Vital Signs Temp Pulse Pulse Resp BP BP Pulse Ox 07/04/22 08:00 97.7 F 75 16 106/69 98 07/04/22 02:03 98.4 F 75 17 94/54 95 07/03/22 20:00 79 17 07/03/22 19:37 100.7 F H 79 17 148/65 90 L 07/03/22 16:00 66 22 137/61 93 L 07/03/22 15:00 71 14 147/54 97 07/03/22 14:00 61 20 125/67 98 07/03/22 13:00 62 16 131/49 97 07/03/22 12:00 63 15 127/59 99 07/03/22 11:00 65 14 136/63 98 07/03/22 10:15 71 15 136/63 97 07/03/22 09:12 71 16 127/61 95 07/03/22 09:03 73 15 127/61 94 L Intake and Output 07/03/22 07/04/22 07/04/22 22:59 06:59 14:59 Output Total 450 Balance -450 Output: Urine 450 Other: Voiding Method Indwelling Catheter Weight 56.699 kg Results 07/04/22 04:41 07/04/22 04:41 CBC 07/04/22 Range/Units 04:41 WBC 8.6 (3.8-10.6) k/uL RBC 3.32 L (3.80-5.40) m/uL Hgb 9.7 L D (11.4-16.0) gm/dL Hct 30.8 L (34.0-46.0) % Plt Count 199 (150-450) k/uL Comprehensive Metabolic Panel 07/04/22 Range/Units 04:41 Sodium 136 L (137-145) mmol/L Potassium 4.0 (3.5-5.1) mmol/L Chloride 104 (98-107) mmol/L Carbon Dioxide 22 (22-30) mmol/L BUN 15 (7-17) mg/dL Creatinine 0.65 (0.52-1.04) mg/dL Glucose 82 (74-99) mg/dL Calcium 8.3 L (8.4-10.2) mg/dL Current Medications Generic Name Dose Route Start Last Admin Trade Name Jerica PRN Reason Stop Dose Admin Acetaminophen 650 mg 07/03/22 14:10 07/04/22 05:44 Acetaminophen Tab 325 Mg Tab PO 650 mg Q8H PRN Administration Pain Atorvastatin Calcium 40 mg 07/03/22 21:00 07/03/22 21:17 Atorvastatin 40 Mg Tab PO 40 mg HS JOHN Administration Carvedilol 12.5 mg 07/03/22 17:00 07/03/22 16:48 Carvedilol 12.5 Mg Tab PO 12.5 mg BID@1200,1700 JOHN Administration Dextrose/Water 25 ml 07/03/22 14:16 Dextrose 50% Syringe 50 Ml IVP PER PROTOCOL PRN Hypoglycemia Protocol Dextrose/Water 50 ml 07/03/22 14:16 Dextrose 50% Syringe 50 Ml IVP PER PROTOCOL PRN Hypoglycemia Protocol Famotidine 20 mg 07/04/22 09:00 07/04/22 07:45 Famotidine 20 Mg Tab PO Not Given DAILY JOHN Hydralazine HCl 50 mg 07/03/22 16:00 07/04/22 08:30 Hydralazine Hcl 50 Mg Tab PO 50 mg TID JOHN Administration Sodium Chloride 1,000 mls @ 75 mls/hr 07/03/22 04:15 07/04/22 07:45 Saline 0.9% IV Not Given .[id number] [facility] Insulin Aspart 0 unit 07/03/22 17:30 07/04/22 07:45 Insulin Aspart (Novolog) 100 Unit/Ml Vial SQ Not Given ACHS [facility] Protocol Losartan Potassium 25 mg 07/04/22 09:00 07/04/22 08:30 Losartan 25 Mg Tab PO 25 mg DAILY JOHN Administration Magnesium Oxide 400 mg 07/04/22 09:00 07/04/22 07:45 Magnesium Oxide 400 Mg Tab PO Not Given DAILY JOHN Morphine Sulfate 4 mg 07/03/22 04:07 07/04/22 02:49 Morphine Sulfate 4 Mg/Ml Syringe IV 4 mg Q4HR PRN Administration Severe Pain (Scale 7 to 10) Naloxone HCl 0.2 mg 07/03/22 04:07 Naloxone 0.4 Mg/Ml 1 Ml Vial IV Q2M PRN Opioid Reversal Ondansetron HCl 4 mg 07/03/22 04:07 Ondansetron 4 Mg/2 Ml Vial IVP Q8HR PRN Nausea And Vomiting Oxybutynin Chloride 5 mg 07/04/22 09:00 07/04/22 07:45 Oxybutynin Xl 5 Mg Tab.Er.24 PO Not Given DAILY JOHN Potassium Chloride 10 meq 07/04/22 09:00 07/04/22 07:45 Potassium Chloride Er 10 Meq Tab.Er.Prt PO Not Given DAILY JOHN Intake and Output 07/03/22 07/04/22 07/04/22 22:59 06:59 14:59 Output Total 450 Balance -450 Output: Urine 450 Other: Voiding Method Indwelling Catheter Weight 56.699 kg 07/04/22 04:41 07/04/22 04:41
[2022-07-04 11:41] LABS: Glucose,Whole Blood 76 mg/dL (70-110)
[2022-07-04] MEDS: carvediloL 12.5 MG TAB PO SCH ×2 (11:45→16:04)
[2022-07-04 12:32] LABS: % Iron Saturation 5.49 (12.00-45.00)
[2022-07-04 13:35] LABS: Reticulocyte % 1.3 % (0.5-2.0)
[2022-07-04 16:59] LABS: Glucose,Whole Blood 97 mg/dL (70-110)
[2022-07-04] MEDS ORDERED: ROCURONIUM 10 MG/ML (5 ML VIAL) IV ONE (20:17)
[2022-07-04] MEDS ORDERED: ceFAZolin 1,000 MG VIAL ONE (20:17)
[2022-07-04] MEDS ORDERED: IV FLUID CONTINUATION 1,000 ML IV ONE ×2 (20:17)
[2022-07-04] MEDS ORDERED: fentaNYL (PF) 50 MCG/ML 2 ML AMP ONE (20:17)
[2022-07-04] MEDS ORDERED: ONDANSETRON 4 MG/2 ML VIAL ONE (20:17)
[2022-07-04] MEDS ORDERED: PROPOFOL 10 MG/ML 20 ML VIAL IV ONE (20:17)
[2022-07-04] MEDS ORDERED: LIDOCAINE 2% INJ 20 MG/ML (2 ML VIAL) ONE (20:17)
[2022-07-04] MEDS ORDERED: MIDAZOLAM 2 MG/2 ML VIAL ONE (20:17)
[2022-07-04] MEDS ORDERED: SODIUM CHLORIDE 0.9% 100 ML BAG ONE (20:17)
[2022-07-04] MEDS ORDERED: MAGNESIUM HYDROXIDE 2,400 MG/10 ML CUP PO PRN (20:20)
[2022-07-04] MEDS ORDERED: traMADol 50 MG TAB PO PRN (20:20)
[2022-07-04] MEDS: ATORVASTATIN 40 MG TAB PO SCH (21:25)
[2022-07-04] MEDS: SENNOSIDES-DOCUSATE SODIUM 1 EACH TAB PO SCH (21:25)
--- NOTE | 2022-07-04 22:07 | XR ---
Intraoperative/procedural fluoroscopic services were provided. Total fluoroscopy time is 42 seconds w ith a total of 5 submitted images to PACS. Please see the operative/procedural note for further detai ls.
--- NOTE | 2022-07-04 22:28 | P.OP ---
Date of Procedure: 07/04/22 Preoperative Diagnosis: Left hip intertrochanteric femur fracture Postoperative Diagnosis: Left hip intertrochanteric femur fracture Procedure(s) Performed: Intramedullary nailing of Left hip intertrochanteric femur fracture Implants: 1.) [id number] IMN 2.) 40x5mm distal locking screw 3.) A 10.5x 90mm lag screw Anesthesia: GETA Surgeon: James Nichols Animal Rides Manager #1: Tommy Raman Estimated Blood Loss (ml): 75 Pathology: none sent Condition: stable Disposition: PACU Description of Procedure: This is a 81 year old female who sustained a left IT hip fracture after a fall from standing and presents today for surgical intervention. Risks and benefits of surgery were discussed with the patient including bleeding, damage to surrounding tissue, infection, need for further surgery as well as risks of anesthesia including pulmonary embolism and even and the patient wished to proceed with surgical intervention. The patient was seen in the pre-operative area by myself. Consent and H&P were completed and updated. The correct extremity was marked in the pre-operative area by myself and all other questions were answered. Operative Narrative: The patient was brought to the operating room by the department of anesthesia. Spinal anesthesia was performed. The patient was then transferred to the [place] traction table. All elana prominences were well padded. Timeout was performed indicating the correct patient, procedure and laterality and all in the room were in agreement. Closed reduction maneuver was performed consisting of traction, adduction and internal rotation. C-arm was used to confirm a cceptable reduction on both AP and lateral views. The patient was then prepped and draped in normal sterile fashion. A 5cm longitudinal incision was made 3 finger breadths above the level of the greater trochanter. The gluteal fascia was split with scalpel and blunt fingertip dissection was taken down to the tip of the greater trochanter. A starting awl was then used to initiate the starting point at the tip of the greater trochanter inline with the medullary canal on AP and lateral views. Awl was then advanced. 3.2mm guide wire was then entered through the awl and intramedullary placement was confirmed on X-ray. Opening reamer was then used to ream over the guide wire down to the level of the lesser trochanter. Guide wire was then removed and ball tip guidewire was inserted and intra-medullary placement was confirmed. A [employer] [id number] IMN was then inserted over the ball tip guidewire and impacted to the appropriate depth. Lag screw guide was then placed and skin incision was made along the lateral aspect of the femur, IT fascia was split and guidewire sleeve was inserted down to bone. Threaded k-wire was then advanced through the femoral neck to subchondral bone of the femoral head without penetrating the cortex and confirmed on AP/Lat views. Size was measured at 90mm. Drill was then set to 90mm and over drilling was performed. A 10.5x 90mm lag screw was then inserted to an appropriate TAD distance. Guide pin was then removed. Set screw was then placed proximally and a quarter back turn was performed and there was a small amount of play when lag screw was twisted indicating correct seating of the set screw in the lag screw rivets. Distal locking attachment was then set to static locking. Drilling was performed and measured with depth gauge. A 40x5mm distal locking screw was then placed. Final imaging was taken confirming appropriate reduction of fracture. Wounds were irrigated with sterile saline. Gluteal and IT fascia was closed with 0 vicryl suture, followed by subcutaneous closure with 2-0 vicryl suture and nara and a sterile optifoam dressing. The patient was then awoken by the department of anesthesia and transferred to PACU in stable condition. Tacho LEMUS was present for the case to assist in hardware placement, wound closure and retraction. -James Nichols DO Orthopedic Surgeon
[2022-07-05] MEDS: ACETAMINOPHEN TAB 325 MG TAB PO PRN ×3 (00:41→21:37)
[2022-07-05] MEDS: SODIUM CHLORIDE 0.9% 1,000 ML IV SCH (06:28)
[2022-07-05 07:18] LABS: Glucose,Whole Blood 61 mg/dL (70-110)
[2022-07-05] MEDS: INSULIN ASPART (NovoLOG) 100 UNIT/ML VIAL SQ SCH ×4 (07:30→21:41)
[2022-07-05 08:11] LABS: Glucose,Whole Blood 128 mg/dL (70-110)
[2022-07-05] MEDS: POTASSIUM CHLORIDE ER 10 MEQ TAB.ER.PRT PO SCH (08:56)
[2022-07-05] MEDS: OXYBUTYNIN XL 5 MG TAB.ER.24 PO SCH (08:56)
[2022-07-05] MEDS: hydrALAZINE HCL 50 MG TAB PO SCH ×3 (08:56→21:38)
[2022-07-05] MEDS: LOSARTAN 25 MG TAB PO SCH (08:56)
[2022-07-05] MEDS: MAGNESIUM OXIDE 400 MG TAB PO SCH (08:56)
[2022-07-05] MEDS: FAMOTIDINE 20 MG TAB PO SCH (08:56)
[2022-07-05 10:22] LABS: Basophils # (A) 0.02 X 10*3/uL (0.00-0.10); Basophils % (A) 0.2 %; Eosinophils # (A) 0.13 X 10*3/uL (0.04-0.35); Eosinophils % (A) 1.5 %; HCT 29.6 % (37.2-46.3); HGB 9.3 g/dL (12.0-15.0); Immature Grans, Automated 0.5 %; Lymphocytes # (A) 1.61 X 10*3/uL (0.90-5.00); Lymphocytes % (A) 18.4 %; MCH 28.7 pg (27.0-32.0); MCHC 31.4 g/dL (32.0-37.0); MCV 91.4 fL (80.0-97.0); Mean Platelet Volume 10.5 fL (9.5-12.2); Monocytes # (A) 1.09 X 10*3/uL (0.20-1.00); Monocytes % (A) 12.4 %; NRBC Per 100 WBC 0 /100 WBCS (0.0-0.0); Neutrophils # (A) 5.87 X 10*3/uL (1.80-7.70); Platelet Count 199 X 10*3/uL (140-440); RBC 3.24 X 10*6/uL (4.10-5.20); RDW 14.5 % (11.5-14.5); WBC 8.76 X 10*3/uL (4.50-10.00)
[2022-07-05] MEDS ORDERED: SODIUM FERRIC GLUCONAT-SUCROSE 125 MG in SODIUM CHLORIDE 0.9% 100 ML IVPB ONE (11:00)
[2022-07-05] MEDS: HYDROcodone/APAP 7.5-325MG 1 EACH TAB PO PRN (11:30)
--- NOTE | 2022-07-05 11:32 | P.PN ---
Subjective This is a pleasant 81-year-old female past medical history significant for hypertension, hyperlipidemia, permanent atrial fibrillation on Xarelto, sick sinus syndrome status post single-chamber pacemaker 05/2021 CVA, type 2 diabetes, former smoker. She follows in the office with Dr. Carias. We have been asked to see in consultation for cardiac clearance. Patient presents emergency department after a fall at home. She states she was doing well at home and was getting up from bed and her walker went too far ahead of her and she fell onto her left hip. She denies any chest pain, lightheadedness, dizziness, near syncope or loss of consciousness, no shortness of breath. She was found to have a left hip intertrochanteric fracture of left femur. Orthopedics have evaluated the patient and plan for Left Hip Intertrochanter Nail today. 07/05/2022 Patient seen and examined at bedside, having some difficulty with vision, but states she cannot find her glasses. She has some left hip pain with movement. No chest pain or shortness of breath. She underwent Intramedullary nailing of Left hip with orthopedic surgery yesterday. PHYSICAL EXAMINATION Blood pressure 124/62, heart rate 82, afebrile, saturations 99% on 2L NC CONSTITUTIONAL: No apparent distress. HEENT: Neck Supple. No JVD. No carotid bruit. CHEST EXAMINATION: Lungs are clear to auscultation. No chest wall tenderness is noted on palpation or with deep breathing. HEART EXAMINATION: Irregular rate and rhythm. S1, S2 heard. No murmurs, gallops or rub. ABDOMEN: Soft, nontender. Positive bowel sounds. EXTREMITIES: 2+ peripheral pulses, no lower extremity edema and no calf tenderness. NEUROLOGIC EXAMINATION: Patient is awake, alert and oriented x3. ASSESSMENT Acute intertrochanteric fracture of left femur s/p Intramedullary nailing of Left hip on 07/04/2020 Mechanical fall at home Sick sinus syndrome status post single-chamber pacemaker implantation 05/2021 Hypertension Hyperlipidemia Permanent atrial fibrillation on Xarelto, currently on hold for surgery Non-obstructive coronary artery disease History of prior CVA Type 2 diabetes Former smoker PLAN -Continue home cardiac medications -Restart Xarelto as soon as able per Orthopedics recommendations Nurse practitioner note has been reviewed by physician. Signing provider agrees with the documented findings, assessment, and plan of care. Objective - Vital Signs Vital signs: Vital Signs Temp 98.5 F 07/05/22 08:00 Pulse 82 07/05/22 08:00 Resp 16 07/05/22 08:00 BP 124/62 07/05/22 08:00 Pulse Ox 90 L 07/05/22 08:00 FiO2 Intake & Output 07/04/22 07/05/22 07/05/22 18:59 06:59 18:59 Intake Total 350 Output Total 800 325 Balance -800 25 Intake: IV 350 Output: Urine 800 300 Straight 150 Estimated Blood Loss 25 Other: Voiding Method Indwelling Catheter - Labs CBC & Chem 7: 07/05/22 07:04 07/04/22 04:41 Labs: Abnormal Lab Results - Last 24 Hours (Table) 07/04/22 07/05/22 07/05/22 Range/Units 04:41 07:13 07:56 POC Glucose (mg/dL) 61 L 128 H (70-110) mg/dL Iron 12 L (50-170) ug/dL TIBC 224 L (228-460) ug/dL % Saturation 5.49 L (12.00-45.00) Transferrin 160.0 L (204.0-354.0) mg/dL Ferritin 1435.0 H (10.0-291.0) ng/mL
[2022-07-05 11:50] LABS: Glucose,Whole Blood 105 mg/dL (70-110)
[2022-07-05] MEDS: carvediloL 12.5 MG TAB PO SCH ×2 (12:06→16:07)
--- NOTE | 2022-07-05 13:00 | P.PN ---
Subjective Progress Note Date: 07/05/22 Principal diagnosis: Status post intramedullary nail left intertrochanteric femur fracture Patient is resting in her hospital chair, she appears to be in no acute distress. She states she was able to put some weight on the extremity which does reproduce pain. I was able to review the physical therapy note which demonstrated a lot of difficulty with ambulation. She currently denies any headaches, lightheadedness or chest pain. Objective - Vital Signs Vital signs: Vital Signs Temp 98.5 F 07/05/22 08:00 Pulse 82 07/05/22 08:00 Resp 16 07/05/22 08:00 BP 124/62 07/05/22 08:00 Pulse Ox 90 L 07/05/22 08:00 FiO2 Intake & Output 07/04/22 07/05/22 07/05/22 18:59 06:59 18:59 Intake Total 350 Output Total 800 325 Balance -800 25 Intake: IV 350 Output: Urine 800 300 Straight 150 Estimated Blood Loss 25 Other: Voiding Method Indwelling Catheter Toilet - Exam Left lower extremity: Postoperative bandages are in good position and condition, no obvious drainage. Mild soft tissue swelling is present in the upper anterior thigh. Calf is soft, no tenderness with palpation. Plantar flexion, dorsiflexion, EHL, FHL are intact. Pulses 2+, her sensory exam to light touch is intact throughout the extremity - Labs CBC & Chem 7: 07/05/22 07:04 07/04/22 04:41 Labs: Abnormal Lab Results - Last 24 Hours (Table) 07/05/22 07/05/22 07/05/22 Range/Units 07:04 07:13 07:56 RBC 3.24 L (4.10-5.20) X 10*6/uL Hgb 9.3 L (12.0-15.0) g/dL Hct 29.6 L (37.2-46.3) % MCHC 31.4 L (32.0-37.0) g/dL Monocytes # 1.09 H (0.20-1.00) X 10*3/uL POC Glucose (mg/dL) 61 L 128 H (70-110) mg/dL Assessment and Plan Assessment: Postoperative day #1 status post IM nail left intertrochanteric femur fracture Plan: Pain control, continue with use of oral medication as needed DVT prophylaxis, continue subcu medication Wound care, continue to monitor dressings Ice and elevate the extremity option Weight-bear as tolerated, utilize a walker at all times Continue PT/OT Medical recommendations Discharge planning: Anticipate discharge to subacute rehab in the next 24-48 hours Time with Patient: Less than 30
[2022-07-05] MEDS: RIVAROXABAN 15 MG TAB PO SCH (16:07)
--- NOTE | 2022-07-05 16:44 | P.PN ---
Subjective Progress Note Date: 07/05/22 (delayed charting seen at 0915) Patient is an 81-year-old female with a history of CVA resulting with left-sided deficit, atrial fibrillation on Xarelto, sick sinus syndrome status post pacemaker, diabetes mellitus, and multiple other comorbid conditions who presented to the ER after a fall. She was found have an intertrochanteric left hip fracture. Patient seen and examined at bedside. Denies any chest pain, shortness of breath, nausea, vomiting. Pain is well controlled. We discussed that she will need IV iron she states she is not surprised. General: nontoxic, no distress, appears at stated age Derm: warm, dry Head: atraumatic, normocephalic, symmetric Eyes: EOMI, no lid lag, anicteric sclera Mouth: no lip lesion, mucus membranes moist Cardiovascular: S1S2 reg, no murmur, positive posterior tibial pulse bilateral, Lungs: Decreased bs bilateral, no rhonchi, no rales , no accessory muscle use Abdominal: soft, nontender to palpation, no guarding, no appreciable or ganomegaly Ext: no gross muscle atrophy, trace edema, no contractures Neuro: CN II-XI grossly intact, no focal neuro deficits Psych: Alert, oriented, appropriate affect Assessment/Plan: Patient is an 81-year-old female with an acute intertrochanteric left femur fracture - s/p IM nailing - management per ortho acute blood loss anemia, on iron deficiency anemia - IV iron today - Ferritin elevated due to acute phase reactant, Sat less than 10 so need IV iron - follow CBC A fib rate controlled on Xarelto - resume xarelto - coreg HTN, controlled - coreg, hydralazine, cozaar DM II - episode of asymptomiatc hypoglycemia on 07/05- did not receive insulin prior, continue to monitor - SSI - follow BS - A1C 6.9 Chronic: CVA with residual left sided deficits HLD Thank you for allowing us to participate in the care of this pleasant patient. Do not hesitate to contact us with questions. Someone can be reached from the [facility] hospitalist group all hours of the day at [phone] or via perfect serve. Active Medications Acetaminophen (Acetaminophen Tab 325 Mg Tab) 650 mg PO Q8H PRN PRN Reason: Pain Last Admin: 07/05/22 16:39 Dose: 650 mg Hydrocodone Bitart/Acetaminophen (Hydrocodone/Apap 5-325mg 1 Each Tab) 1 each P O Q6HR PRN PRN Reason: Pain Scale 1 to 5 Hydrocodone Bitart/Acetaminophen (Hydrocodone/Apap 7.5-325mg 1 Each Tab) 1 each PO Q6H PRN PRN Reason: Pain Scale 6 to 10 Last Admin: 07/05/22 11:30 Dose: 1 each Atorvastatin Calcium (Atorvastatin 40 Mg Tab) 40 mg PO HS [facility] Last Admin: 07/04/22 21:25 Dose: Not Given Carvedilol (Carvedilol 12.5 Mg Tab) 12.5 mg PO BID@1200,1700 [facility] Last Admin: 07/05/22 16:07 Dose: 12.5 mg Dextrose/Water (Dextrose 50% Syringe 50 Ml) 25 ml IVP PER PROTOCOL PRN; Protocol PRN Reason: Hypoglycemia Dextrose/Water (Dextrose 50% Syringe 50 Ml) 50 ml IVP PER PROTOCOL PRN; Protocol PRN Reason: Hypoglycemia Famotidine (Famotidine 20 Mg Tab) 20 mg PO DAILY [facility] Last Admin: 07/05/22 08:56 Dose: 20 mg Hydralazine HCl (Hydralazine Hcl 50 Mg Tab) 50 mg PO TID [facility] Last Admin: 07/05/22 16:06 Dose: 50 mg Sodium Chloride (Saline 0.9%) 1,000 mls @ 75 mls/hr IV .[id number] [facility] Last Admin: 07/05/22 06:28 Dose: 75 mls/hr Insulin Aspart (Insulin Aspart (Novolog) 100 Unit/Ml Vial) 0 unit SQ ACHS [facility]; Protocol Last Admin: 07/05/22 12:13 Dose: Not Given Losartan Potassium (Losartan 25 Mg Tab) 25 mg PO DAILY [facility] Last Admin: 07/05/22 08:56 Dose: 25 mg Magnesium Hydroxide (Magnesium Hydroxide 2,400 Mg/10 Ml Cup) 2,400 mg PO DAILY PRN PRN Reason: Constipation Magnesium Oxide (Magnesium Oxide 400 Mg Tab) 400 mg PO DAILY [facility] Last Admin: 07/05/22 08:56 Dose: 400 mg Morphine Sulfate (Morphine Sulfate 4 Mg/Ml Syringe) 4 mg IV Q4HR PRN PRN Reason: Severe Pain (Scale 7 to 10) Last Admin: 07/04/22 19:19 Dose: 4 mg Naloxone HCl (Naloxone 0.4 Mg/Ml 1 Ml Vial) 0.2 mg IV Q2M PRN PRN Reason: Opioid Reversal Ondansetron HCl (Ondansetron 4 Mg/2 Ml Vial) 4 mg IVP Q8HR PRN PRN Reason: Nausea And Vomiting Oxybutynin Chloride (Oxybutynin Xl 5 Mg Tab.Er.24) 5 mg PO DAILY [facility] Last Admin: 07/05/22 08:56 Dose: 5 mg Potassium Chloride (Potassium Chloride Er 10 Meq Tab.Er.Prt) 10 meq PO DAILY [facility] Last Admin: 07/05/22 08:56 Dose: 10 meq Rivaroxaban (Rivaroxaban 15 Mg Tab) 15 mg PO W/SUPPER [facility]; Protocol Last Admin: 07/05/22 16:07 Dose: 15 mg Senna/Docusate Sodium (Sennosides-Docusate Sodium 1 Each Tab) 2 each PO HS [facility] Last Admin: 07/04/22 21:25 Dose: Not Given Tramadol HCl (Tramadol 50 Mg Tab) 50 mg PO Q6HR PRN PRN Reason: Pain Scale 1 to 5 Objective - Vital Signs Vital signs: Vital Signs Temp 97.9 F 07/05/22 14:00 Pulse 85 07/05/22 14:00 Resp 16 07/05/22 14:00 BP 114/76 07/05/22 14:00 Pulse Ox 92 L 07/05/22 14:00 FiO2 Intake & Output 07/04/22 07/05/22 07/05/22 18:59 06:59 18:59 Intake Total 350 Output Total 800 325 Balance -800 25 Intake: IV 350 Output: Urine 800 300 Straight 150 Estimated Blood Loss 25 Other: Voiding Method Indwelling Catheter Toilet - Labs CBC & Chem 7: 07/05/22 07:04 07/04/22 04:41 Labs: Abnormal Lab Results - Last 24 Hours (Table) 07/05/22 07/05/22 07/05/22 Range/Units 07:04 07:13 07:56 RBC 3.24 L (4.10-5.20) X 10*6/uL Hgb 9.3 L (12.0-15.0) g/dL Hct 29.6 L (37.2-46.3) % MCHC 31.4 L (32.0-37.0) g/dL Monocytes # 1.09 H (0.20-1.00) X 10*3/uL POC Glucose (mg/dL) 61 L 128 H (70-110) mg/dL
[2022-07-05 16:59] LABS: Glucose,Whole Blood 205 mg/dL (70-110)
[2022-07-05 21:29] LABS: Glucose,Whole Blood 145 mg/dL (70-110)
[2022-07-05] MEDS: ATORVASTATIN 40 MG TAB PO SCH (21:38)
[2022-07-05] MEDS: SENNOSIDES-DOCUSATE SODIUM 1 EACH TAB PO SCH (21:40)
[2022-07-06] MEDS: SODIUM CHLORIDE 0.9% 1,000 ML IV SCH ×2 (00:29→10:00)
[2022-07-06] MEDS: HYDROcodone/APAP 7.5-325MG 1 EACH TAB PO PRN (02:32)
[2022-07-06 06:58] LABS: Glucose,Whole Blood 111 mg/dL (70-110)
[2022-07-06] MEDS: INSULIN ASPART (NovoLOG) 100 UNIT/ML VIAL SQ SCH ×4 (07:44→23:00)
[2022-07-06] MEDS: POTASSIUM CHLORIDE ER 10 MEQ TAB.ER.PRT PO SCH (09:48)
[2022-07-06] MEDS: LOSARTAN 25 MG TAB PO SCH (09:48)
[2022-07-06] MEDS: OXYBUTYNIN XL 5 MG TAB.ER.24 PO SCH (09:48)
[2022-07-06] MEDS: hydrALAZINE HCL 50 MG TAB PO SCH ×3 (09:48→22:54)
[2022-07-06] MEDS: MAGNESIUM OXIDE 400 MG TAB PO SCH (09:48)
[2022-07-06] MEDS: FAMOTIDINE 20 MG TAB PO SCH (09:48)
[2022-07-06] MEDS: ACETAMINOPHEN TAB 325 MG TAB PO PRN ×2 (09:49→17:45)
--- NOTE | 2022-07-06 11:18 | P.PN ---
Subjective This is a pleasant 81-year-old female past medical history significant for hypertension, hyperlipidemia, permanent atrial fibrillation on Xarelto, sick sinus syndrome status post single-chamber pacemaker 05/2021 CVA, type 2 diabetes, former smoker. She follows in the office with Dr. Carias. We have been asked to see in consultation for cardiac clearance. Patient presents emergency department after a fall at home. She states she was doing well at home and was getting up from bed and her walker went too far ahead of her and she fell onto her left hip. She denies any chest pain, lightheadedness, dizziness, near syncope or loss of consciousness, no shortness of breath. She was found to have a left hip intertrochanteric fracture of left femur. Orthopedics have evaluated the patient and plan for Left Hip Intertrochanter Nail today. 07/06/2022 Patient seen and examined at bedside, sitting in bed eating breakfast. Continues to have left hip pain. BP is elevated this morning. 151/95 No chest pain or shortness of breath. She underwent Intramedullary nailing of Left hip with orthopedic surgery on 07/04. She has been restarted on her Xarelto. PHYSICAL EXAMINATION Blood pressure 151/95, heart rate 100, afebrile, oxygen saturation is 92% on room air CONSTITUTIONAL: No apparent distress. HEENT: Neck Supple. No JVD. No carotid bruit. CHEST EXAMINATION: Lungs are clear to auscultation. No chest wall tenderness is noted on palpation or with deep breathing. HEART EXAMINATION: Irregular rate and rhythm. S1, S2 heard. No murmurs, gallops or rub. ABDOMEN: Soft, nontender. Positive bowel sounds. EXTREMITIES: 2+ peripheral pulses, no lower extremity edema and no calf tenderness. NEUROLOGIC EXAMINATION: Patient is awake, alert and oriented x3. ASSESSMENT Acute intertrochanteric fracture of left femur s/p Intramedullary nailing of Left hip on 07/04/2020 Mechanical fall at home Sick sinus syndrome status post single-chamber pacemaker implantation 05/2021 Hypertension Hyperlipidemia Permanent atrial fibrillation on Xarelto, currently on hold for surgery Non-obstructive coronary artery disease History of prior CVA Type 2 diabetes Former smoker PLAN -Increase losartan 50mg daily -Xarelto has been resumed. -Discharge per Orthopedic surgery -No further changes from a cardiology perspective, patient to follow up outpatient with Dr. Evans. Nurse practitioner note has been reviewed by physician. Signing provider agrees with the documented findings, assessment, and plan of care. Objective - Vital Signs Vital signs: Vital Signs Temp 98.1 F 07/06/22 07:35 Pulse 100 07/06/22 07:35 Resp 16 07/06/22 07:35 BP 151/95 07/06/22 07:35 Pulse Ox 92 L 07/06/22 08:00 FiO2 Intake & Output 07/05/22 07/06/22 07/06/22 18:59 06:59 18:59 Output Total 200 Balance -200 Output: Post Void Residual 200 Other: Voiding Method Toilet Bedside Commode # Voids 1 1 - Labs CBC & Chem 7: 07/05/22 07:04 07/04/22 04:41 Labs: Abnormal Lab Results - Last 24 Hours (Table) 07/05/22 07/05/22 07/05/22 Range/Units 07:04 16:58 21:25 RBC 3.24 L (4.10-5.20) X 10*6/uL Hgb 9.3 L (12.0-15.0) g/dL Hct 29.6 L (37.2-46.3) % MCHC 31.4 L (32.0-37.0) g/dL Monocytes # 1.09 H (0.20-1.00) X 10*3/uL POC Glucose (mg/dL) 205 H 145 H (70-110) mg/dL 07/06/22 Range/Units 06:57 RBC (4.10-5.20) X 10*6/uL Hgb (12.0-15.0) g/dL Hct (37.2-46.3) % MCHC (32.0-37.0) g/dL Monocytes # (0.20-1.00) X 10*3/uL POC Glucose (mg/dL) 111 H (70-110) mg/dL
[2022-07-06 11:24] LABS: Glucose,Whole Blood 242 mg/dL (70-110)
[2022-07-06] MEDS ORDERED: LOSARTAN 25 MG TAB PO STA (11:30)
--- NOTE | 2022-07-06 11:30 | P.PN ---
Subjective Progress Note Date: 07/06/22 Principal diagnosis: Status post intramedullary nail left intertrochanteric femur fracture patient is evaluated today bedside, she is resting in her hospital chair. She still is requiring quite a bit of assistance with ambulation. Denies lightheadedness, chest pain or shortness of breath. discussed with case management, they have spoken with the patient's family. She will be receiving more direct care when she returns back to her assisted living. Objective - Vital Signs Vital signs: Vital Signs Temp 98.1 F 07/06/22 07:35 Pulse 100 07/06/22 07:35 Resp 16 07/06/22 07:35 BP 151/95 07/06/22 07:35 Pulse Ox 92 L 07/06/22 08:00 FiO2 Intake & Output 07/05/22 07/06/22 07/06/22 18:59 06:59 18:59 Output Total 200 Balance -200 Output: Post Void Residual 200 Other: Voiding Method Toilet Bedside Commode # Voids 1 1 - Exam Left lower extremity: Postoperative bandages are in good position and condition, no obvious drainage. Mild soft tissue swelling is present in the upper anterior thigh. Calf is soft, no tenderness with palpation. Plantar flexion, dorsiflexion, EHL, FHL are intact. Pulses 2+, her sensory exam to light touch is intact throughout the extremity - Labs CBC & Chem 7: 07/05/22 07:04 07/04/22 04:41 Labs: Abnormal Lab Results - Last 24 Hours (Table) 07/05/22 07/05/22 07/06/22 Range/Units 16:58 21:25 06:57 POC Glucose (mg/dL) 205 H 145 H 111 H (70-110) mg/dL 07/06/22 Range/Units 11:23 POC Glucose (mg/dL) 242 H (70-110) mg/dL Assessment and Plan Assessment: Postoperative day #2 status post IM nail left intertrochanteric femur fracture Plan: Pain control, low-dose oral medication as needed DVT prophylaxis, Continue normally prescribed Xarelto Wound care, continue to monitor dressings Ice and elevate the extremity option Weight-bear as tolerated, utilize a walker at all times Continue PT/OT Medical recommendations Discharge planning: Stable for discharge today Time with Patient: Less than 30
--- NOTE | 2022-07-06 11:43 | P.DS ---
Providers Date of admission: 07/03/22 04:07 Expected date of discharge: 07/06/22 Attending physician: James Nichols DO Consults: 07/03/22 11:19 Consult Physician Routine Consulting Provider: Giovana Ramirez Consult Reason/Comments: Medical Management Do you want consulting provider notified?: Yes 07/03/22 11:20 Consult Physician Routine Consulting Provider: [facility] Consult Reason/Comments: Surgical clearance Do you want consulting provider notified?: Yes Primary care physician: Gen Palma Hospital Course: Date of admission: 07/03/2022 Date of discharge: 07/06/2022 Admission diagnosis: Displaced left intertrochanteric femur fracture Discharge diagnosis: Status post intramedullary nail left intertrochanteric femur fracture Attending physician: Dr. Nichols Surgical procedures: Intramedullary nail left intertrochanteric femur fracture Brief history: Patient is a 81-year-old female was brought to [facility] on 07/03/2022 for evaluation of his left lower extremity injury. Patient testing demonstrates a displaced left intertrochanteric femur fracture. Patient was admitted under orthopedic service with plan for surgical interven tion. Proper consults were placed for clearances by both internal medicine and cardiology. Hospital course: Details of patient's surgery can be found in operative report. Patient tolerated the procedure well and was subsequently transported to orthopedic floor. Patient's orthopeidc and medical care was provided daily. Patient had daily laboratory tests performed for evaluation of overall blood counts . Patient had daily physical therapy to include strengthening range of motion as well as education with walker ambulation. Patient was treated with Xarelto for their postoperative DVT prophylaxis during their inpatient stay. Patient was noted to have a relatively uneventful postoperative course. Patient reported satisfactory pain control with oral pain medications by postoperative day 1. Patient showed satisfactory progress with physical therapy. Patient moved steadily through the program and had no difficulty meeting the goals by postoperative day 2. Given patient's otherwise satisfactory course and having met physical therapy goals, plan is to discharge patient assisted living on postoperative day 2. Discharge condition/disposition: Patient will be discharged assisted living in stable condition. Discharge medications: Instructions are given on resumption of patient's normal daily medications per primary care recommendation, in addition patient will be prescribed [place] 7.5 mg/325 mg, senna S, milk of magnesia. Discharge instructions: 1. Wound care and infection precautions, keep incision dry and covered while showering, no lotions, creams, moisturizers. No soaking, tubs, pools, hottubs. Do not scrub over the incision. Okay to remove the foam dressings as of 07/08/2022. Ok to remove nara on 07/18/2022 2. Weight-bear as tolerated with walker / cane until follow-up. 3. Ice and elevate when necessary. Do not exceed 20 minutes per hour with ice pack. 4. Utilize compression sleeve until seen at first follow up appointment. 7. Pain meds and anticoagulants per prescription. 8. Pain medication has potential to cause constipation. Increase oral fluid and fiber intake. Contact primary care provider if you have not had a bowel movement within 48 hours after discharge 9. No anti-inflammatory medication until discussed at first post operative visit, this including Motrin, Aleve, Mobic, Diclofenac 10. Follow up in office at 2 weeks postop with Tacho Raman PA-C/Miguel Astudillo 11. Follow up with your primary care doctor 7-10 days after discharge. 12. Contact [facility] with any questions, . Procedures: intramedullary nail left intertrochanteric femur fracture Patient Condition at Discharge: Fair Plan - Discharge Summary New Discharge Prescriptions: New Magnesium Hydroxide [Milk of Magnesia] 400 mg PO DAILY PRN #150 ml PRN Reason: Constipation HYDROcodone/APAP 7.5-325MG [[place] 7.5] 1 each PO Q6HR PRN #21 tab PRN Reason: Pain Sennosides/Docusate Sodium [Senna-S 8.6-50 mg Tablet] 1 each PO DAILY PRN #30 tablet PRN Reason: Constipation No Action Atorvastatin [Lipitor] 40 mg PO HS C,E,Zinc,Copper 11/Hxahq5t/Lut [Ocuvite Adult 50 Plus Softgel] 1 cap PO DAILY Magnesium Oxide [Mag-Ox] 400 mg PO DAILY 30 Days #30 tablet hydrALAZINE HCL [Apresoline] 50 mg PO TID Acetaminophen [Tylenol 8 Hour] 650 mg PO Q8H PRN PRN Reason: Pain Rivaroxaban [Xarelto] 15 mg PO W/SUPPER Famotidine [Pepcid] 20 mg PO DAILY carvediloL [Coreg*] 12.5 mg PO BID@1200,1700 Potassium Gluconate [Potassium Gluconate ER] 99 mg PO DAILY Oxybutynin Xl [Ditropan XL] 5 mg PO DAILY Nystatin/Triamcin [Nystatin-Triamcinolone Cream] 1 applic TOPICAL DAILY PRN PRN Reason: Rash Losartan [Cozaar] 25 mg PO DAILY Lidocaine 5% Oint [Xylocaine 5% Oint] 1 applic TOPICAL TID PRN PRN Reason: Pain Discharge Medication List Atorvastatin [Lipitor] 40 mg PO HS 04/05/17 [History] Acetaminophen [Tylenol 8 Hour] 650 mg PO Q8H PRN 06/13/21 [History] C,E,Zinc,Copper 11/Piamu1d/Lut [Ocuvite Adult 50 Plus Softgel] 1 cap PO DAILY 08/19/21 [History] Famotidine [Pepcid] 20 mg PO DAILY 08/19/21 [History] Rivaroxaban [Xarelto] 15 mg PO W/SUPPER 08/19/21 [History] Magnesium Oxide [Mag-Ox] 400 mg PO DAILY 30 Days #30 tablet 11/22/21 [Rx] Potassium Gluconate [Potassium Gluconate ER] 99 mg PO DAILY 01/14/22 [History] carvediloL [Coreg*] 12.5 mg PO BID@1200,1700 01/14/22 [History] hydrALAZINE HCL [Apresoline] 50 mg PO TID 01/14/22 [History] Lidocaine 5% Oint [Xylocaine 5% Oint] 1 applic TOPICAL TID PRN 07/03/22 [History] Losartan [Cozaar] 25 mg PO DAILY 07/03/22 [History] Nystatin/Triamcin [Nystatin-Triamcinolone Cream] 1 applic TOPICAL DAILY PRN 07/03/22 [History] Oxybutynin Xl [Ditropan XL] 5 mg PO DAILY 07/03/22 [History] HYDROcodone/APAP 7.5-325MG [[place] 7.5] 1 each PO Q6HR PRN #21 tab 07/06/22 [Rx] Magnesium Hydroxide [Milk of Magnesia] 400 mg PO DAILY PRN #150 ml 07/06/22 [Rx] Sennosides/Docusate Sodium [Senna-S 8.6-50 mg Tablet] 1 each PO DAILY PRN #30 tablet 07/06/22 [Rx] Follow up Appointment(s)/Referral(s): [facility], [NON-STAFF] - As Needed Shadi Evans DO [STAFF PHYSICIAN] - 11/02/22 1:30 pm (Appointment with Dr. Evans and Device CHeck) Gen Palma MD [Primary Care Provider] - 1-2 days James Nichols DO [Doctor of Osteopathic Medicine] - 2 Weeks Activity/Diet/Wound Care/Special Instructions: Orthopedic discharge instructions: 1. Weight-bear as tolerated on the left lower extremity 2. Utilize walker at all times with ambulation 3. Ok to remove foam dressing over incisions on 07/08/2022 4. Keep incisions covered and dry while showering 5. Ok to remove nara on 07/18/2022 6. Ice and elevate the extremity 7. [facility]up at [facility] 2 weeks, please call office with any questions Discharge Disposition: TRANSFER TO SNF/ECF
[2022-07-06] MEDS: carvediloL 12.5 MG TAB PO SCH ×2 (12:44→16:10)
--- NOTE | 2022-07-06 14:29 | CT ---
EXAMINATION TYPE: CT brain wo con DATE OF EXAM: 07/06/2022 COMPARISON: 04/27/2022 INDICATION: AMS DLP: 2639.9 mGycm, Automated exposure control for dose reduction was used. CONTRAST: None CT of the brain is performed utilizing 3 mm thick sections through the posterior fossa and 3 mm thick sections through the remaining calvarium. Study is performed within 24 hours of arrival to the hosp ital. Exam is limited despite multiple attempts for a nonmotion. No abnormal hyperdensity is present to suggest an acute intracranial hemorrhage. No mass lesion is evident. There is an acute infarct through the right temporal lobe extending into the occipital lobe. Some ext ent into the parietal lobe is suspected however evaluation is limited due to the motion artifact. There is an old infarct within the left parietal-occipital region hypodensity within the left frontal region with some ex vacuo effect suggest underlying prior infarct or ischemic changes. Ventricles and sulci are appropriate for the patient age. This is somewhat limited in evaluation how ever. Paranasal sinuses and mastoid air cells within the [id number] are clear. IMPRESSIONS: 1. There appears to be a large acute infarct through the right temporal and occipital region with s uspected extension into the parietal region. 2. Old infarcts within the left occipital and right frontal regions. 3. Exam limited due to motion artifact despite several attempts. Some more subtle abnormalities may n ot be visualized.
--- NOTE | 2022-07-06 15:26 | P.PN ---
Subjective Progress Note Date: 07/06/22 Patient seen and examined at bedside. Patient was about to be discharged by the orthopedic primary team. However, son was concerned about her left eye droop. Patient's son informed me that her prior stroke was caused by having her Xarelto stopped for surgery. Patient's son was concerned that she had another CVA. A stat CT of the brain without contrast was ordered and revealed a large acute temporal and occipital infarct. Stat neurology consult placed. Patient will be now under the hospitalist primary care team. Patient denies chest pain or shortness of breath. Patient does have residual left-sided weakness and neglect. Objective - Vital Signs Vital signs: Vital Signs Temp 98.1 F 07/06/22 07:35 Pulse 80 07/06/22 12:43 Resp 16 07/06/22 07:35 BP 171/66 07/06/22 12:43 Pulse Ox 92 L 07/06/22 08:00 FiO2 Intake & Output 07/05/22 07/06/22 07/06/22 18:59 06:59 18:59 Output Total 200 Balance -200 Output: Post Void Residual 200 Other: Voiding Method Toilet Bedside Commode Bedside Commode Bedpan Diaper # Voids 1 1 - Exam General: [non toxic], [no distress], [appears at stated age] Derm: [warm], [dry] Head: [atraumatic], [normocephalic], [symmetric] Eyes: [EOMI], [no lid lag], [anicteric sclera] Mouth: [no lip lesion], [mucus membranes moist] Cardiovascular: [S1S2 reg], [no murmur], [positive posterior tibial pulse bilateral], Lungs: [CTA bilateral], [no rhonchi, no rales] , [no accessory muscle use] Abdominal: [soft], [ nontender to palpation], [no guarding], [no appreciable organomegaly] Ext: [no gross muscle atrophy], [no edema], [no contractures] Neuro: [ left sided weakness and left side neglect left facial droop ] Psych: [Alert] [appropriate affect] - Labs CBC & Chem 7: 07/05/22 07:04 07/04/22 04:41 Labs: Abnormal Lab Results - Last 24 Hours (Table) 07/05/22 07/05/22 07/06/22 Range/Units 16:58 21:25 06:57 POC Glucose (mg/dL) 205 H 145 H 111 H (70-110) mg/dL 07/06/22 Range/Units 11:23 POC Glucose (mg/dL) 242 H (70-110) mg/dL Assessment and Plan Assessment: Acute CVA Consult neurology STAT PT/OT continue current medications cardiology recs appreciated Acute intertrochanteric left femur fracture - s/p IM nailing - management per ortho - PT/OT acute blood loss anemia, on iron deficiency anemia - IV iron today - Ferritin elevated due to acute phase reactant, Sat less than 10 so need IV iron - follow CBC A fib rate controlled on Xarelto - resume xarelto - coreg - cardiology recs apprecaited HTN, controlled - coreg, hydralazine, cozaar DM II - episode of asymptomiatc hypoglycemia on 07/05- did not receive insulin prior, continue to monitor - SSI - follow BS - A1C 6.9 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
[2022-07-06 17:08] LABS: Glucose,Whole Blood 92 mg/dL (70-110)
[2022-07-06] MEDS: RIVAROXABAN 15 MG TAB PO SCH (17:45)
[2022-07-06 20:15] LABS: Glucose,Whole Blood 88 mg/dL (70-110)
--- NOTE | 2022-07-06 20:40 | P.CNNES ---
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 Patient had left hip pain with external rotation of the leg. Patient on Xarelto prior to arrival. Patient was diagnosed with left hip intertrochanteric fracture. Chest x-ray showed no acute process. EKG showed atrial fibrillation with aberrant conduction or ventricular premature complexes. Patient underwent intramedullary nailing of the left hip intertrochanteric femur fracture on 07/04/2022. Patient was resumed on Xarelto on 07/05/2022, also received 1 dose today. Patient was planned to be discharged, but patient's mental status was altered. This prompted a computed tomography scan of the head, which revealed a large ac [place] infarct to the right temporal and occipital region with suspected extension into the parietal region. Old infarcts within the left occipital and right frontal region. I personally review CT head, agree with the findings. Patient is on Xarelto 15 mg daily, and has been receiving it since 07/05/2022. Patient also on Lipitor 40 mg, Coreg. Patient has history of an acute ischemic stroke involving the left occipital region on 05/21/2021. The second stroke occurred shortly after on 05/24/2021 involving the right frontal region. Patient's most recent blood test shows WBC 9.4 hemoglobin 8.8, platelets 227. Sodium 136 potassium 3.5, normal renal functions. Hepatic panel is normal. Review of Systems Patient answered limited as below. ROS unobtainable: due to mental status Constitutional: Denies chills, Denies fever Ears, nose, mouth and throat: Denies headache Past Medical History Past Medical History: Atrial Fibrillation, Cancer, CVA/TIA, Diabetes Mellitus, GERD/Reflux, Hyperlipidemia, Hypertension, Osteoarthritis (OA), Syncope Additional Past Medical History / Comment(s): CVA with L sided weakness, bradycardia/pacer, NIDDM type II/diet controlled since weight loss, cervical cancer with hysterectomy, recurrent UTIs/current UTI with antibiotic, diverticulitis, SBO/with bowel resection/diarrhea frequently since, osteoporosis, recent new bilateral pedal edema. History of Any Multi-Drug Resistant Organisms: None Reported Past Surgical History: Back Surgery, Bowel Resection, Heart Catheterization, Hysterectomy, Pacemaker Additional Past Surgical History / Comment(s): EGD, Colonoscopy, bilateral cataract removed, "fatty tumor" removed from her back, exp. laparotomy w/small bowel resection, EGD, colonoscopy, microlaryngoscopy with bx d/t sore throat, Past Anesthesia/Blood Transfusion Reactions: Motion Sickness Additional Past Anesthesia/Blood Transfusion Reaction / Comment(s): Pt has never recieved blood. SON "CODED" POST HIP REPLACEMENT Type of Cardiac Device: Permanent Pacemaker Device Placement Date:: 05/21/21 Past Psychological History: Anxiety Smoking Status: Former smoker Past Alcohol Use History: None Reported Past Drug Use History: None Reported - Past Family History Father Family Medical History: Myocardial Infarction (TN) Additional Family Medical History / Comment(s): Father of a [place] at age 76yrs. Mother Family Medical History: CVA/TIA Additional Family Medical History / Comment(s): Mother had a CVA at age 88yrs. She at age 92yrs. Medications and Allergies Home Medications Medication Instructions Recorded Confirmed Type Atorvastatin [Lipitor] 40 mg PO HS 04/05/17 07/03/22 History Acetaminophen [Tylenol 8 Hour] 650 mg PO Q8H PRN 06/13/21 07/03/22 History C,E,Zinc,Copper 11/Yundc9u/Lut 1 cap PO DAILY 08/19/21 07/03/22 History [Ocuvite Adult 50 Plus Softgel] Famotidine [Pepcid] 20 mg PO DAILY 08/19/21 07/03/22 History Rivaroxaban [Xarelto] 15 mg PO W/SUPPER 08/19/21 07/03/22 History Magnesium Oxide [Mag-Ox] 400 mg PO DAILY 30 Days #30 tablet 11/22/21 07/03/22 Rx Potassium Gluconate [Potassium 99 mg PO DAILY 01/14/22 07/03/22 History Gluconate ER] carvediloL [Coreg*] 12.5 mg PO BID@1200,1700 01/14/22 07/03/22 History hydrALAZINE HCL [Apresoline] 50 mg PO TID 01/14/22 07/03/22 History Lidocaine 5% Oint [Xylocaine 5% 1 applic TOPICAL TID PRN 07/03/22 07/03/22 His tory Oint] Losartan [Cozaar] 25 mg PO DAILY 07/03/22 07/03/22 History Nystatin/Triamcin 1 applic TOPICAL DAILY PRN 07/03/22 07/03/22 History [Nystatin-Triamcinolone Cream] Oxybutynin Xl [Ditropan XL] 5 mg PO DAILY 07/03/22 07/03/22 History HYDROcodone/APAP 7.5-325MG [[place] 1 each PO Q6HR PRN #21 tab 07/06/22 Rx 7.5] Magnesium Hydroxide [Milk of 400 mg PO DAILY PRN #150 ml 07/06/22 Rx Magnesia] Sennosides/Docusate Sodium 1 each PO DAILY PRN #30 tablet 07/06/22 Rx [Senna-S 8.6-50 mg Tablet] Allergies Allergy/AdvReac Type Severity Reaction Status Date / Time amlodipine Allergy Anaphylaxis Verified 07/03/22 11:01 isosorbide mononitrate Allergy Rash/Hives Verified 07/03/22 11:01 [From Imdur] Physical Examination - Vital Signs Vital Signs: Vital Signs Temp Pulse Resp BP Pulse Ox 07/06/22 14:00 98.7 F 78 16 133/56 93 L 07/06/22 12:43 80 171/66 07/06/22 08:00 92 L 07/06/22 07:35 98.1 F 100 16 151/95 92 L 07/06/22 02:00 97.8 F 88 16 162/65 90 L 07/05/22 20:00 97.9 F 83 20 139/85 91 L Intake and Output 07/06/22 07/06/22 07/06/22 06:59 14:59 22:59 Other: Voiding Method Bedside Commode Bedpan Diaper # Voids 1 1 Patient is an elderly female, in no acute distress. Patient is very somnolent, droops her head down. She keeps her eyes closed. Speech and language functions appears normal, as she can name and repeat. Patient was able to name eyeglasses, ear. Attention, concentration and fund of knowledge is very limited. Patient able to tell me that she is right-handed dominant. She states it is June and the year is 1943. She could not tell the city. On cranial nerve examination, pupils are equal, round and reacting to light, visual callejas could not be tested as patient would not cooperate. Gaze is slightly to the right. Patient did not cooperate with the extraocular muscles. Patient has slight flattening of the left nasolabial fold. Her tongue protrudes to the midline. Palatal elevation and sensation cannot be assessed. Lower cranial nerves could not be tested. On muscle strength testing, there is left pronator drift. Patient was noticed using the left hand to pick up driver the blanket and the covers. 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 Patient's strength is normal in the right leg. Patient is almost flaccid on the left leg. Deep tendon reflexes are symmetric trace to 1 all over and plantar is downgoing on the right, upgoing on the left. Sensory to touch is equal in the arms, with no neglect. Sensation decreased in the left leg. Cerebellar function could not be tested because of noncooperation. Gait deferred.. On general examination, there is no carotid bruit or murmur, S1-S2 audible. Chest is clear on consultation. Abdomen is soft nontender. No organomegaly, bowel sounds present. Peripheral pulses are present. No edema. Results - Laboratory Findings CBC and BMP: 07/07/22 07:40 07/07/22 07:40 Abnormal Lab Findings: Abnormal Labs 07/03/22 07/03/22 07/03/22 02:37 02:37 02:37 WBC 11.5 H RBC Hgb 11.3 L Hct MCHC Neutrophils # 9.3 H Lymphocytes # 0.9 L Monocytes # APTT 21.0 L Sodium BUN 28 H Glucose 113 H POC Glucose (mg/dL) Hemoglobin A1c Calcium Iron TIBC % Saturation Transferrin Ferritin Urine Protein Urine Nitrite Ur Leukocyte Esterase Urine WBC Urine Bacteria Urine Mucus 07/03/22 07/04/22 07/04/22 Unknown 04:41 04:41 WBC RBC 3.32 L Hgb 9.7 L D Hct 30.8 L MCHC Neutrophils # Lymphocytes # Monocytes # APTT Sodium BUN Glucose POC Glucose (mg/dL) Hemoglobin A1c 6.9 H Calcium Iron TIBC % Saturation Transferrin Ferritin Urine Protein Trace H Urine Nitrite Positive H Ur Leukocyte Esterase Trace H Urine WBC 9 H Urine Bacteria Few H Urine Mucus Rare H 07/04/22 07/04/22 07/05/22 04:41 04:41 07:04 WBC RBC 3.24 L Hgb 9.3 L Hct 29.6 L MCHC 31.4 L Neutrophils # Lymphocytes # Monocytes # 1.09 H APTT Sodium 136 L BUN Glucose POC Glucose (mg/dL) Hemoglobin A1c Calcium 8.3 L Iron 12 L TIBC 224 L % Saturation 5.49 L Transferrin 160.0 L Ferritin 1435.0 H Urine Protein Urine Nitrite Ur Leukocyte Esterase Urine WBC Urine Bacteria Urine Mucus 07/05/22 07/05/22 07/05/22 07:13 07:56 16:58 WBC RBC Hgb Hct MCHC Neutrophils # Lymphocytes # Monocytes # APTT Sodium BUN Glucose POC Glucose (mg/dL) 61 L 128 H 205 H Hemoglobin A1c Calcium Iron TIBC % Saturation Transferrin Ferritin Urine Protein Urine Nitrite Ur Leukocyte Esterase Urine WBC Urine Bacteria Urine Mucus 07/05/22 07/06/22 07/06/22 21:25 06:57 11:23 WBC RBC Hgb Hct MCHC Neutrophils # Lymphocytes # Monocytes # APTT Sodium BUN Glucose POC Glucose (mg/dL) 145 H 111 H 242 H Hemoglobin A1c Calcium Iron TIBC % Saturation Transferrin Ferritin Urine Protein Urine Nitrite Ur Leukocyte Esterase Urine WBC Urine Bacteria Urine Mucus Assessment and Plan Assessment: * Acute ischemic stroke right hemispheric region involving the right temporal and occipital region with extension to the right rectal region. Event appears embolic, 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 * Atrial fibrillation * Recent fall 07/02/2022, status post left hip arthroplasty 07/04/2022. * History of multiple strokes in the past. * Diabetes * Hyperlipidemia * Hypertension * Pacemaker Plan: * Hold Xarelto because of large stroke. * Repeat CT head in the morning. * 2-D echo, rule out left atrial/left ventricular clot/thrombus. * Carotid Doppler * If no hemorrhagic conversion, will consider aspirin regimen only for now. * Hemoglobin A1c 6.9 * Lipid panel with cholesterol 84, LDL 33, HDL 32 and triglycerides 92. Continue Lipitor 40 mg daily. * Neurology will follow. Thank you for the consult.
[2022-07-06] MEDS: SENNOSIDES-DOCUSATE SODIUM 1 EACH TAB PO SCH (22:53)
[2022-07-06] MEDS: ATORVASTATIN 40 MG TAB PO SCH (22:53)
[2022-07-06] MEDS: HYDROcodone/APAP 5-325MG 1 EACH TAB PO PRN (22:53)
[2022-07-07] MEDS: ACETAMINOPHEN TAB 325 MG TAB PO PRN (04:09)
[2022-07-07] MEDS: SODIUM CHLORIDE 0.9% 1,000 ML IV SCH ×2 (05:22→13:08)
[2022-07-07 06:07] LABS: Glucose,Whole Blood 94 mg/dL (70-110)
[2022-07-07] MEDS: INSULIN ASPART (NovoLOG) 100 UNIT/ML VIAL SQ SCH ×4 (06:13→23:10)
[2022-07-07 08:18] LABS: Basophils % (A) 0 %; Eosinophils # (A) 0.1 k/uL (0-0.7); Eosinophils % (A) 1 %; HCT 27.5 % (34.0-46.0); HGB 8.8 gm/dL (11.4-16.0); Lymphocytes # (A) 1.5 k/uL (1.0-4.8); Lymphocytes % (A) 16 %; MCH 28.6 pg (25.0-35.0); MCHC 31.8 g/dL (31.0-37.0); MCV 89.9 fL (80.0-100.0); Mean Platelet Volume 7.8; Monocytes # (A) 0.7 k/uL (0-1.0); Monocytes % (A) 7 %; Neutrophils % (A) 75 %; Platelet Count 227 k/uL (150-450); RBC 3.06 m/uL (3.80-5.40); RDW 14.2 % (11.5-15.5); WBC 9.4 k/uL (3.8-10.6)
[2022-07-07] MEDS: HYDROcodone/APAP 5-325MG 1 EACH TAB PO PRN ×2 (08:18→15:10)
[2022-07-07] MEDS: hydrALAZINE HCL 50 MG TAB PO SCH ×3 (08:18→21:07)
[2022-07-07] MEDS: OXYBUTYNIN XL 5 MG TAB.ER.24 PO SCH (08:19)
[2022-07-07] MEDS: FAMOTIDINE 20 MG TAB PO SCH (08:19)
[2022-07-07] MEDS: LOSARTAN 50 MG TAB PO SCH (08:19)
[2022-07-07] MEDS: MAGNESIUM OXIDE 400 MG TAB PO SCH (08:19)
[2022-07-07] MEDS: POTASSIUM CHLORIDE ER 10 MEQ TAB.ER.PRT PO SCH (08:19)
[2022-07-07 08:28] LABS: ALT 13 U/L (4-34); AST 29 U/L (14-36); African American GFR (CKD) >90 (>60 ml/min/1.73 sqM); Albumin 2.8 g/dL (3.5-5.0); Alkaline Phosphatase 65 U/L (38-126); Anion Gap 11 mmol/L; Blood Urea Nitrogen 15 mg/dL (7-17); Calcium 7.9 mg/dL (8.4-10.2); Carbon Dioxide 23 mmol/L (22-30); Chloride 102 mmol/L (98-107); Glucose 80 mg/dL (74-99); Magnesium 1.6 mg/dL (1.6-2.3); Non-African American GFR(CKD) 82 (>60 ml/min/1.73 sqM); Potassium 3.5 mmol/L (3.5-5.1); Sodium 136 mmol/L (137-145); Total Bilirubin 0.8 mg/dL (0.2-1.3); Total Protein 5.1 g/dL (6.3-8.2)
--- NOTE | 2022-07-07 10:54 | P.PN ---
Subjective Progress Note Date: 07/07/22 HISTORY OF PRESENT ILLNESS: This is a pleasant 81-year-old female past medical history significant for hypertension, hyperlipidemia, permanent atrial fibrillation on Xarelto, sick s inus syndrome status post single-chamber pacemaker 05/2021 CVA, type 2 diabetes, former smoker. She follows in the office with Dr. Carias. We have been asked to see in consultation for cardiac clearance. Patient presents emergency department after a fall at home. She states she was doing well at home and was getting up from bed and her walker went too far ahead of her and she fell onto her left hip. She denies any chest pain, lightheadedness, dizziness, near syncope or loss of consciousness, no shortness of breath. She was found to have a left hip intertrochanteric fracture of left femur. Orthopedics have evaluated the patient and plan for Left Hip Intertrochanter Nail today. 07/06/2022 Patient seen and examined at bedside, sitting in bed eating breakfast. Continues to have left hip pain. BP is elevated this morning. 151/95 No chest pain or shortness of breath. She underwent Intramedullary nailing of Left hip with orthopedic surgery on 07/04. She has been restarted on her Xarelto. 07/07/2022 Patient examined this morning at the bedside. Patient denies chest pain or pressure. Denies SOB. Patient suffered an acute ischemic CVA yesterday. Her Xarelto was placed on hold per neurology and she is scheduled for repeat CT scan today. Blood pressure stable. PHYSICAL EXAM: VITAL SIGNS: Reviewed. GENERAL: Well-developed in no acute distress. NECK: Supple. No JVD or thyromegaly LUNGS: Respirations even and unlabored. Lungs essentially clear to auscultation bilaterally. HEART: Irregular rate and rhythm. S1 and S2 heard. EXTREMITIES: Normal range of motion. No clubbing or cyanosis. Peripheral pulses intact. No lower extremity edema ASSESSMENT: Acute intertrochanteric fracture of left femur s/p Intramedullary nailing of Left hip on 07/04/2020 Mechanical fall at home Acute CVA Sick sinus syndrome status post single-chamber pacemaker implantation 05/2021 Hypertension Hyperlipidemia Permanent atrial fibrillation on Xarelto Non-obstructive coronary artery disease History of prior CVA Type 2 diabetes Former smoker PLAN: Neurology following. CT brain ordered for today. Resume Xarelto when cleared by neurology Continue additional cardiac medications Currently stable from a cardiac standpoint Patient to follow up outpatient with Dr. Evans Nurse practitioner note has been reviewed by physician. Signing provider agrees with the documented findings, assessment, and plan of care. Objective - Vital Signs Vital signs: Vital Signs Temp 98.4 F 07/07/22 08:15 Pulse 91 07/07/22 08:15 Resp 16 07/07/22 08:15 BP 140/67 07/07/22 08:15 Pulse Ox 95 07/07/22 08:15 FiO2 Intake & Output 07/06/22 07/07/22 07/07/22 18:59 06:59 18:59 Intake Total 120 Output Total 500 Balance -500 120 Intake: Oral 120 Output: Urine 500 Straight 500 Other: Voiding Method Bedside Commode External Catheter External Catheter Bedpan Diaper # Voids 1 - Labs CBC & Chem 7: 07/07/22 07:40 07/07/22 07:40 Labs: Abnormal Lab Results - Last 24 Hours (Table) 07/06/22 07/07/22 07/07/22 Range/Units 11:23 07:40 07:40 RBC 3.06 L (3.80-5.40) m/uL Hgb 8.8 L (11.4-16.0) gm/dL Hct 27.5 L (34.0-46.0) % Sodium 136 L (137-145) mmol/L POC Glucose (mg/dL) 242 H (70-110) mg/dL Calcium 7.9 L (8.4-10.2) mg/dL Total Protein 5.1 L (6.3-8.2) g/dL Albumin 2.8 L (3.5-5.0) g/dL
--- NOTE | 2022-07-07 10:57 | P.PN ---
Subjective Progress Note Date: 07/07/22 Principal diagnosis: Status post intramedullary nail left intertrochanteric femur fracture Patient was evaluated today at bedside, she has been transferred to the stepdown unit. It was noted prior to discharge yesterday there is concern for stroke, computed tomography scan did confirm this. Patient is being followed by neurology along with cardiology, internal medicine and our orthopedic service. She was evaluated at bedside, she is resting comfortably. She does have some discomfort in the left lower extremity. Objective - Vital Signs Vital signs: Vital Signs Temp 98.4 F 07/07/22 08:15 Pulse 91 07/07/22 08:15 Resp 16 07/07/22 08:15 BP 140/67 07/07/22 08:15 Pulse Ox 95 07/07/22 08:15 FiO2 Intake & Output 07/06/22 07/07/22 07/07/22 18:59 06:59 18:59 Intake Total 120 Output Total 500 Balance -500 120 Intake: Oral 120 Output: Urine 500 Straight 500 Other: Voiding Method Bedside Commode External Catheter External Catheter Bedpan Diaper # Voids 1 - Exam Left lower extremity: Postoperative bandages are in good position and condition, no obvious drainage. Mild soft tissue swelling is present in the upper anterior thigh. Calf is soft, no tenderness with palpation. Plantar flexion, dorsiflexion, EHL, FHL are intact. Pulses 2+, her sensory exam to light touch is intact throughout the extremity - Labs CBC & Chem 7: 07/07/22 07:40 07/07/22 07:40 Labs: Abnormal Lab Results - Last 24 Hours (Table) 07/06/22 07/07/22 07/07/22 Range/Units 11:23 07:40 07:40 RBC 3.06 L (3.80-5.40) m/uL Hgb 8.8 L (11.4-16.0) gm/dL Hct 27.5 L (34.0-46.0) % Sodium 136 L (137-145) mmol/L POC Glucose (mg/dL) 242 H (70-110) mg/dL Calcium 7.9 L (8.4-10.2) mg/dL Total Protein 5.1 L (6.3-8.2) g/dL Albumin 2.8 L (3.5-5.0) g/dL Assessment and Plan Assessment: Postoperative day #3 status post IM nail left intertrochanteric femur fracture Other medical comorbidities Plan: Pain control, low-dose oral medication as needed DVT prophylaxis, recommendations based on other medical specialties due to her acute stroke Wound care, continue to monitor dressings Ice and elevate the extremity option Weight-bear as tolerated, utilize a walker at all times Continue PT/OT Medical recommendations Discharge planning: Orthopedically patient remained stable, recommend follow-up in the outpatient setting 23 weeks. Orthopedic instructions we placed in chart, please contact our service with any further questions Time with Patient: Less than 30
[2022-07-07 11:38] LABS: Glucose,Whole Blood 105 mg/dL (70-110)
[2022-07-07] MEDS: carvediloL 12.5 MG TAB PO SCH ×2 (13:08→17:29)
--- NOTE | 2022-07-07 14:38 | CT ---
EXAMINATION TYPE: CT brain wo con CT DLP: 1145.4 mGycm, Automated exposure control for dose reduction was used. DATE OF EXAM: 07/07/2022 2:11 PM COMPARISON: 07/06/2022. CLINICAL INDICATION:Female, 81 years old with history of Follow-up CVA, TECHNIQUE: Brain: Axial CT images of the brain were obtained with coronal and sagittal reformats created and rev iewed. Contrast used: None. Oral contrast used: None. FINDINGS: Brain: Extra-axial spaces: No abnormal extra-axial fluid collections. Ventricular system: Within normal limits Cerebral parenchyma: Right MCA territory infarct with cerebral parenchymal edema which effaces the ri ght lateral ventricle. No evidence of hemorrhagic conversion. Right frontal lobe medial encephalomala gabi from prior injury. Left occipital temporal lobe injury from remote injury with encephalomalacia. Cerebellum: Unremarkable. Mass effect: No evidence of midline shift. Intracranial vasculature: Atherosclerotic calcifications of the intracranial vessels. Soft tissues: Normal. Calvarium/osseous structures: No depressed skull fracture. Paranasal sinuses and mastoid air cells: Mild scattered paranasal sinus disease. Visualized orbits: Bilateral aphakia IMPRESSION: 1. Right MCA territory infarct without evidence of hemorrhagic conversion. There is effacement of th e right lateral ventricle without evidence of midline shift. 2. Remote injury of the right frontal, left occipital/temporal lobes.
--- NOTE | 2022-07-07 14:41 | CDI ---
Documentation Clarification Form Date: 07/07/2022 02:04:55 PM From: Juanita Gutierrez Phone: Admit Date: 07/03/2022 04:07:00 AM Patient Name: Consuelo Padilla Visit Number: [id number] Discharge Date: ATTENTION: The Clinical Documentation Specialists (CDI) and [facility] Coding Staff appreciate your assistance in clarifying documentation. Please respond to the clarification below the line at the bottom and electronically sign. The CDI & [facility] Coding staff will review the response and follow-up if needed. Please note: Queries are made part of the Legal Health Record. If you have any questions, please contact the author of this message via ITS. Dr. Hellen Wild/Dr. Cathi Kuo Acute blood loss anemia on iron deficiency anemia is documented in your progress notes on 07/06/22] and patient had intramedullary nailing of left hip intertrochanteric femur fracture on 07/04/2022 . Additional clarification is requested regarding the relationship, if any, that exists between the diagnosis and the procedure. Patients Admitting Diagnosis: Left femur fracture Post-Operative Diagnosis: Left hip intertrochanteric femur fracture Procedure performed: Intramedullary nailing of left hip intertrochanteric femur fracture History/Risk Factors: Atrial Fibrillation, CA, CVA, Diabetes Mellitus Hypertension, Left sided weakness, Anemia Clinical Indicators: 81-year-old female present post slip and fall, have left femur fracture. 07/03 vital signs 127/68 77 15 98.6 98 % RA 07/04 She had a repair, intramedullary nailing of left hip. Estimated blood loss during procedure 75 mL. 07/03: HGB 11.3, HCT 35.0 07/04: HGB 9.7, HCT 30.8 07/05: HGB 9.3, HCT 29.6 07/07: HGB 8.8, HCT 27.5 Treatment: Telemetry monitoring [place] 5-325 PO Q8 HRS PRN Pain Monitor CBC per orders .9 NS IV @ 75 mL HR, Ferric Sodium Gluconate 125 MG IVPB Once 07/05 What relationship, if any, exists between the diagnosis of acute blood loss anemia and the procedure? [ ] Acute blood loss anemia is a complication of surgical procedure [Yes] Acute blood loss anemia is an expected outcome of the surgical procedure [ ] Acute blood loss anemia is related to patients co-morbid condition(s) of [insert co-morbid dxs] & not a complication of the procedure [ ] Acute blood loss anemia has been ruled out [ ] Other please specify ____ [ ] Unable to determine (Template Last Revised: December 2020) MTDD
--- NOTE | 2022-07-07 15:57 | P.PN ---
Subjective Progress Note Date: 07/07/22 Patient seen and examined at bedside. Patient's little sleepy this morning and didn't really want to talk much. Patient's son was in the room. Patient sounds aware patient's acute CVA. Neurology is following and repeat CTs to be done today 2:30 PM. Objective - Vital Signs Vital signs: Vital Signs Temp 98 F 07/07/22 15:16 Pulse 72 07/07/22 15:16 Resp 16 07/07/22 15:16 BP 144/63 07/07/22 15:16 Pulse Ox 96 07/07/22 15:16 FiO2 Intake & Output 07/06/22 07/07/22 07/07/22 18:59 06:59 18:59 Intake Total 120 Output Total 500 150 Balance -500 -30 Intake: Oral 120 Output: Urine 500 150 Straight 500 Other: Voiding Method Bedside Commode External Catheter External Catheter Bedpan Diaper # Voids 1 - Exam General: [non toxic], [no distress], [appears at stated age] Derm: [warm], [dry] Head: [atraumatic], [normocephalic], [symmetric] Eyes: [EOMI], [no lid lag], [anicteric sclera] Mouth: [no lip lesion], [mucus membranes moist] Cardiovascular: [S1S2 reg], [no murmur], [positive posterior tibial pulse bilateral], Lungs: [CTA bilateral], [no rhonchi, no rales] , [no accessory muscle use] Abdominal: [soft], [ nontender to palpation], [no guarding], [no appreciable organomegaly] Ext: [no gross muscle atrophy], [no edema], [no contractures] Neuro: [ left sided weakness and left side neglect left facial droop ] Psych: [Alert] [appropriate affect - Labs CBC & Chem 7: 07/07/22 07:40 07/07/22 07:40 Labs: Abnormal Lab Results - Last 24 Hours (Table) 07/07/22 07/07/22 Range/Units 07:40 07:40 RBC 3.06 L (3.80-5.40) m/uL Hgb 8.8 L (11.4-16.0) gm/dL Hct 27.5 L (34.0-46.0) % Sodium 136 L (137-145) mmol/L Calcium 7.9 L (8.4-10.2) mg/dL Total Protein 5.1 L (6.3-8.2) g/dL Albumin 2.8 L (3.5-5.0) g/dL Assessment and Plan Assessment: Acute CVA Neurology recommendations appreciated Repeat CT scheduled for today PT/OT continue current medications cardiology recs appreciated Acute intertrochanteric left femur fracture - s/p IM nailing - management per ortho - PT/OT acute blood loss anemia, on iron deficiency anemia - IV iron today - Ferritin elevated due to acute phase reactant, Sat less than 10 so need IV iron - follow CBC A fib rate controlled on Xarelto -Xarelto currently held - coreg - cardiology recs apprecaited HTN, controlled - coreg, hydralazine, cozaar DM II - episode of asymptomiatc hypoglycemia on 07/05- did not receive insulin prior, continue to monitor - SSI - follow BS - A1C 6.9 Chronic: CVA with residual left sided deficits HLD GI/DVT prophylaxis AM labs Discharge planning once cleared by neurology patient will likely need to go to rehabilitation. Time with Patient: Greater than 30
[2022-07-07 16:28] LABS: Glucose,Whole Blood 152 mg/dL (70-110)
--- NOTE | 2022-07-07 16:45 | US ---
EXAMINATION TYPE: US carotid duplex BILAT DATE OF EXAM: 07/07/2022 COMPARISON: US 2020 CLINICAL HISTORY: CVA. TECHNIQUE: Carotid duplex ultrasound examination. Indirect Doppler criteria was utilized. Exam done portable FINDINGS: EXAM MEASUREMENTS: RIGHT: Peak Systolic Velocity (PSV) cm/sec ----- Right CCA: 104.1 ----- Right ICA: 116.2 ----- Right ECA: 146.9 ICA/CCA ratio: 1.1 RIGHT: End Diastole cm/sec ----- Right CCA: 12.6 ----- Right ICA: 17.3 ----- Right ECA: 0.0 LEFT: Peak Systolic Velocity (PSV) cm/sec ----- Left CCA: 104.4 ----- Left ICA: 159.9 ----- Left ECA: 234.1 ICA/CCA ratio: 1.5 LEFT: End Diastole cm/sec ----- Left CCA: 16.6 ----- Left ICA: 31.8 ----- Left ECA: 0.0 VERTEBRALS (direction of flow): Right Vertebral: Antegrade Left Vertebral: Antegrade Rhythm: Normal Elevated velocities - right proximal ECA, left proximal CCA, mid and distal left ICA and left proxima l ECA No significant stenosis IMPRESSION: 1. Mild to moderate atherosclerotic plaque of both carotid systems with less than 50% stenosis of th e right internal carotid artery and 50-69% stenosis of the left internal carotid artery. 2. Moderate stenosis of the bilateral external carotid arteries with left greater than right.
[2022-07-07] MEDS: RIVAROXABAN 15 MG TAB PO SCH (17:30)
[2022-07-07 20:27] LABS: Glucose,Whole Blood 97 mg/dL (70-110)
[2022-07-07] MEDS: ATORVASTATIN 40 MG TAB PO SCH (21:06)
[2022-07-07] MEDS: SENNOSIDES-DOCUSATE SODIUM 1 EACH TAB PO SCH (21:06)
[2022-07-07] MEDS: HYDROcodone/APAP 7.5-325MG 1 EACH TAB PO PRN (21:07)
--- NOTE | 2022-07-07 23:10 | P.PN ---
Subjective Progress Note Date: 07/07/22 Patient was seen for a follow-up. Patient is laying comfortably in the bed. Patient denies any headache. She has much improved clinically as compared to yesterday. Objective - Vital Signs Vital signs: Vital Signs Temp 98 F 07/07/22 15:16 Pulse 72 07/07/22 15:16 Resp 16 07/07/22 15:16 BP 144/63 07/07/22 15:16 Pulse Ox 96 07/07/22 15:16 FiO2 Intake & Output 07/06/22 07/07/22 07/07/22 18:59 06:59 18:59 Intake Total 120 Output Total 500 500 Balance -500 -380 Intake: Oral 120 Output: Urine 500 500 Straight 500 Other: Voiding Method Bedside Commode External Catheter External Catheter Bedpan Diaper # Voids 1 - Exam Patient is an elderly female, very pleasant, in no acute distress. Patient is alert awake. Patient states it is May and the year is 82. She knows that she is in [facility] and name of the current president. Speech and language functions are normal. Patient can name and repeat very well. No aphasia or dysarthria. Attention, concentration and fund of knowledge is adequate for her age, detailed testing deferred. On cranial nerve examination, pupils are equal, round and reacting to light, visual callejas reveal complete left homonymous hemianopia. Extraocular muscles are intact with no nystagmus. Patient has left facial asymmetry. Her tongue protrudes to the midline. Palatal elevation and sensation normal, hearing is slightly decreased and shoulder shrug normal, facial sensation normal. On muscle strength testing, there is mild left pronator drift. Strength is (right/left) deltoid 5/4, biceps 5/5, triceps 5/5, punch finisher 5/5. In the lower grullon bs, her left leg is very weak. Right leg appears fairly normal. Patient has Babinski on the left, but downgoing plantar on the right. Sensory to touch is feeling better in the right arm and right leg as compared to the left side. She does neglect left side on double simultaneous stimulation. Cerebellar function showed no ataxia for [id number] testing on either side. Tone and bulk of muscles normal. Gait deferred.. On general examination, there is no carotid bruit or murmur, S1-S2 audible. Chest is clear on consultation. Abdomen is soft nontender. No organomegaly, bowel sounds present. Peripheral pulses are present. No edema. - Labs CBC & Chem 7: 07/07/22 07:40 07/07/22 07:40 Labs: Abnormal Lab Results - Last 24 Hours (Table) 07/07/22 07/07/22 07/07/22 Range/Units 07:40 07:40 16:26 RBC 3.06 L (3.80-5.40) m/uL Hgb 8.8 L (11.4-16.0) gm/dL Hct 27.5 L (34.0-46.0) % Sodium 136 L (137-145) mmol/L POC Glucose (mg/dL) 152 H (70-110) mg/dL Calcium 7.9 L (8.4-10.2) mg/dL Total Protein 5.1 L (6.3-8.2) g/dL Albumin 2.8 L (3.5-5.0) g/dL Assessment and Plan Assessment: * Acute ischemic stroke right hemispheric region involving the right temporal and occipital region with extension to the right parietal region. Event appears embolic, 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 * Atrial fibrillation * Recent fall 07/02/2022, status post left hip arthroplasty 07/04/2022. * History of multiple strokes in the past (all related to missing doses of anticoagulation). * Diabetes * Hyperlipidemia * Hypertension * Pacemaker Plan: * Repeat CT head was performed today. It revealed right MCA territory infarct without evidence of hemorrhagic conversion. There is effacement of the right lateral ventricle without evidence of midline shift. On my review, appears there is an additional area of acute/subacute infarct involving the left JOHNATHON territory just superior to the remote injury on the left temporal and occipital region. I reviewed it with Dr. Paulino, and he agreed. Please refer to the addended report. * Carotid Doppler revealed mild to moderate atherosclerotic plaque of both carotid system and less than 50% stenosis of the right ICA and 50-69% stenosis of the left ICA. * 2-D echo, rule out left atrial/left ventricular clot/thrombus, still pending. * Patient is high risk for recurrent embolic strokes. She already had 4 different ischemic strokes, each time in relation to anticoagulation being held for various reasons. Patient already has been on Xarelto for last 2 days, doing well. There is no significant cerebral edema. Given the risks and benefits of anticoagulation, the benefits outweigh the risk. We will resume Xarelto at the same dose. * Hemoglobin A1c 6.9 * Lipid panel with cholesterol 84, LDL 33, HDL 32 and triglycerides 92. Continue Lipitor 40 mg daily. * Neurologically clear, if the 2-D echo report is stable.
[2022-07-08] MEDS: ACETAMINOPHEN TAB 325 MG TAB PO PRN ×2 (03:57→15:20)
[2022-07-08] MEDS: MORPHINE SULFATE 4 MG/ML SYRINGE IV PRN ×2 (03:58→20:24)
[2022-07-08] MEDS ORDERED: cloNIDine HCL 0.2 MG TAB PO PRN (04:42)
[2022-07-08] MEDS: SODIUM CHLORIDE 0.9% 1,000 ML IV SCH ×2 (05:47→16:47)
[2022-07-08 06:11] LABS: Glucose,Whole Blood 103 mg/dL (70-110)
[2022-07-08] MEDS: INSULIN ASPART (NovoLOG) 100 UNIT/ML VIAL SQ SCH ×4 (08:23→20:23)
[2022-07-08] MEDS: HYDROcodone/APAP 7.5-325MG 1 EACH TAB PO PRN ×2 (08:45→16:45)
[2022-07-08] MEDS: MAGNESIUM OXIDE 400 MG TAB PO SCH (08:45)
[2022-07-08] MEDS: POTASSIUM CHLORIDE ER 10 MEQ TAB.ER.PRT PO SCH (08:45)
[2022-07-08] MEDS: LOSARTAN 50 MG TAB PO SCH (08:45)
[2022-07-08] MEDS: OXYBUTYNIN XL 5 MG TAB.ER.24 PO SCH (08:45)
[2022-07-08] MEDS: hydrALAZINE HCL 50 MG TAB PO SCH ×3 (08:46→22:34)
[2022-07-08 08:48] LABS: Basophils % (A) 0 %; Eosinophils # (A) 0.1 k/uL (0-0.7); Eosinophils % (A) 1 %; HCT 28.4 % (34.0-46.0); Lymphocytes # (A) 1.5 k/uL (1.0-4.8); Lymphocytes % (A) 16 %; MCH 28.9 pg (25.0-35.0); MCHC 31.8 g/dL (31.0-37.0); MCV 90.9 fL (80.0-100.0); Mean Platelet Volume 7.9; Monocytes # (A) 0.7 k/uL (0-1.0); Monocytes % (A) 8 %; Neutrophils # (A) 7.1 k/uL (1.3-7.7); Neutrophils % (A) 74 %; Platelet Count 259 k/uL (150-450); RBC 3.12 m/uL (3.80-5.40); RDW 14.5 % (11.5-15.5); WBC 9.6 k/uL (3.8-10.6)
[2022-07-08] MEDS: FAMOTIDINE 20 MG TAB PO SCH (08:48)
[2022-07-08 09:00] LABS: ALT 18 U/L (4-34); AST 30 U/L (14-36); African American GFR (CKD) >90 (>60 ml/min/1.73 sqM); Albumin 2.9 g/dL (3.5-5.0); Alkaline Phosphatase 68 U/L (38-126); Anion Gap 12 mmol/L; Blood Urea Nitrogen 13 mg/dL (7-17); Calcium 7.7 mg/dL (8.4-10.2); Carbon Dioxide 22 mmol/L (22-30); Chloride 103 mmol/L (98-107); Glucose 116 mg/dL (74-99); Non-African American GFR(CKD) 85 (>60 ml/min/1.73 sqM); Potassium 3.6 mmol/L (3.5-5.1); Sodium 137 mmol/L (137-145); Total Bilirubin 0.8 mg/dL (0.2-1.3); Total Protein 5.3 g/dL (6.3-8.2)
[2022-07-08 09:27] LABS: Appearance,Urine Clear (Clear); Bacteria,Urine Rare /hpf; Bilirubin,Urine Negative (Negative); Blood,Urine Negative (Negative); Color,Urine Yellow; Glucose,Urine (UA) Negative (Negative); Hyaline Casts,Urine 1 /lpf (0-2); Ketones,Urine 2+ (Negative); Leukocyte Esterase,Urine Large (Negative); Mucus,Urine Occasional /hpf; Nitrite,Urine Negative (Negative); Protein,Urine 1+ (Negative); RBC,Urine 5 /hpf (0-5); Specific Gravity,Urine 1.027 (1.001-1.035); Squamous Epithelial Cell,Urine 2 /hpf (0-4); Urobilinogen,Urine <2.0 mg/dL (<2.0); WBC,Urine 49 /hpf (0-5)
--- NOTE | 2022-07-08 10:56 | XR ---
EXAMINATION TYPE: XR chest 2V DATE OF EXAM: 07/08/2022 COMPARISON: Chest x-ray 07/03/[address] 09/10/2021 HISTORY: Fever, abnormal chest x-ray TECHNIQUE: Frontal and lateral views of the chest are obtained. FINDINGS: Calcified granuloma in the posterior right chest is again noted. Right hemidiaphragm remain s elevated. The heart is enlarged. Patient is rotated. There is no focal air space opacity, pleural e ffusion, or pneumothorax seen. There are coronary artery calcifications. The cardiac silhouette size is stable accounting for differences in technique. The osseous structures are intact. IMPRESSION: Cardiomegaly. Old granulomatous disease. Coronary artery disease.
[2022-07-08 11:43] LABS: Glucose,Whole Blood 99 mg/dL (70-110)
[2022-07-08] MEDS: carvediloL 12.5 MG TAB PO SCH ×2 (11:43→16:47)
--- NOTE | 2022-07-08 12:56 | P.PN ---
Subjective Progress Note Date: 07/08/22 HISTORY OF PRESENT ILLNESS: This is a pleasant 81-year-old female past medical history significant for hypertension, hyperlipidemia, permanent atrial fibrillation on Xarelto, sick s inus syndrome status post single-chamber pacemaker 05/2021 CVA, type 2 diabetes, former smoker. She follows in the office with Dr. Carias. We have been asked to see in consultation for cardiac clearance. Patient presents emergency department after a fall at home. She states she was doing well at home and was getting up from bed and her walker went too far ahead of her and she fell onto her left hip. She denies any chest pain, lightheadedness, dizziness, near syncope or loss of consciousness, no shortness of breath. She was found to have a left hip intertrochanteric fracture of left femur. Orthopedics have evaluated the patient and plan for Left Hip Intertrochanter Nail today. 07/06/2022 Patient seen and examined at bedside, sitting in bed eating breakfast. Continues to have left hip pain. BP is elevated this morning. 151/95 No chest pain or shortness of breath. She underwent Intramedullary nailing of Left hip with orthopedic surgery on 07/04. She has been restarted on her Xarelto. 07/07/2022 Patient examined this morning at the bedside. Patient denies chest pain or pressure. Denies SOB. Patient suffered an acute ischemic CVA yesterday. Her Xarelto was placed on hold per neurology and she is scheduled for repeat CT scan today. Blood pressure stable. 07/08/2022 Patient examined this morning at the bedside. Patient underwent computed tomography scan yesterday which did not reveal any evidence of hemorrhagic conversion. Her Xarelto was resumed per neurology. She denies any chest pain or pressure. She denies any shortness of breath. Vital signs are stable. PHYSICAL EXAM: VITAL SIGNS: Reviewed. GENERAL: Well-developed in no acute distress. NECK: Supple. No JVD or thyromegaly LUNGS: Respirations even and unlabored. Lungs essentially clear to auscultation bilaterally. HEART: Irregular rate and rhythm. S1 and S2 heard. EXTREMITIES: Normal range of motion. No clubbing or cyanosis. Peripheral pulses intact. No lower extremity edema ASSESSMENT: Acute intertrochanteric fracture of left femur s/p Intramedullary nailing of Left hip on 07/04/2020 Mechanical fall at home Acute CVA Sick sinus syndrome status post single-chamber pacemaker implantation 05/2021 Hypertension Hyperlipidemia Permanent atrial fibrillation on Xarelto Non-obstructive coronary artery disease History of prior CVA Type 2 diabetes Former smoker PLAN: Continue current cardiac medications Patient has been resumed on her Xarelto per neurology Currently stable from a cardiac standpoint Patient to follow up outpatient with Dr. Evans Nurse practitioner note has been reviewed by physician. Signing provider agrees with the documented findings, assessment, and plan of care. Objective - Vital Signs Vital signs: Vital Signs Temp 98.0 F 07/08/22 11:37 Pulse 60 07/08/22 11:37 Resp 18 07/08/22 11:37 BP 158/70 07/08/22 11:37 Pulse Ox 97 07/08/22 11:37 FiO2 Intake & Output 07/07/22 07/08/22 07/08/22 18:59 06:59 18:59 Intake Total 240 123 Output Total 500 400 Balance -260 -400 123 Intake: IV 5 Invasive Line 3 5 Oral 240 118 Output: Urine 500 400 Other: Voiding Method External Catheter External Catheter Indwelling Catheter # Bowel Movements 1 1 - Labs CBC & Chem 7: 07/08/22 08:14 07/08/22 08:14 Labs: Abnormal Lab Results - Last 24 Hours (Table) 07/07/22 07/08/22 07/08/22 Range/Units 16:26 08:14 08:14 RBC 3.12 L (3.80-5.40) m/uL Hgb 9.0 L (11.4-16.0) gm/dL Hct 28.4 L (34.0-46.0) % Glucose 116 H (74-99) mg/dL POC Glucose (mg/dL) 152 H (70-110) mg/dL Calcium 7.7 L (8.4-10.2) mg/dL Total Protein 5.3 L (6.3-8.2) g/dL Albumin 2.9 L (3.5-5.0) g/dL Urine Protein (Negative) Urine Ketones (Negative) Ur Leukocyte Esterase (Negative) Urine WBC (0-5) /hpf Urine Bacteria (None) /hpf Urine Mucus (None) /hpf 07/08/22 Range/Units 09:00 RBC (3.80-5.40) m/uL Hgb (11.4-16.0) gm/dL Hct (34.0-46.0) % Glucose (74-99) mg/dL POC Glucose (mg/dL) (70-110) mg/dL Calcium (8.4-10.2) mg/dL Total Protein (6.3-8.2) g/dL Albumin (3.5-5.0) g/dL Urine Protein 1+ H (Negative) Urine Ketones 2+ H (Negative) Ur Leukocyte Esterase Large H (Negative) Urine WBC 49 H (0-5) /hpf Urine Bacteria Rare H (None) /hpf Urine Mucus Occasional H (None) /hpf
--- NOTE | 2022-07-08 13:08 | CA ---
Transthoracic Echo Report Name: Consuelo Padilla Age: 81 Gender: F : 1940 Exam Date: 07/08/2022 09:11 Exam Location: [facility] Ht (in): 60 Wt (lb): 125 Ordering Physician: Kylah Cisneros MD Attending/Referring Phys: Retirement Officer Alexandria Zeng, CLARISSA Procedure CPT: Indications: Acute stroke, rule out LV/LA thrombus Cardiac Hx: Technical Quality: Good Contrast 1: Total Dose (mL): Contrast 2: Total Dose (mL): MEASUREMENTS (Male / Female) Normal Values 2D ECHO LV Diastolic Diameter PLAX 2.8 cm 4.2 - 5.9 / 3.9 - 5.3 cm LV Systolic Diameter PLAX 2.7 cm IVS Diastolic Thickness 1.5 cm 0.6 - 1.0 / 0.6 - 0.9 cm LVPW Diastolic Thickness 1.6 cm 0.6 - 1.0 / 0.6 - 0.9 cm LV Relative Wall Thickness 1.1 RV Internal Dim ED PLAX 3.2 cm LA Systolic Diameter LX 3.9 cm 3.0 - 4.0 / 2.7 - 3.8 cm LA Volume 83.3 cm??? 18 - 58 / 22 - 52 cm??? M-MODE Aortic Root Diameter MM 2.9 cm LA Systolic Diameter MM 4.8 cm LA Ao Ratio MM 1.7 MV E Point Septal Separation 0.6 cm AV Cusp Separation MM 1.4 cm DOPPLER MV Area PHT 2.3 cm??? Mitral E Point Velocity 154.8 cm/s Mitral A Point Velocity 21.7 cm/s Mitral E to A Ratio 7.1 MV Deceleration Time 336.0 ms TR Peak Velocity 326.8 cm/s TR Peak Gradient 42.7 mmHg Right Ventricular Systolic Press 46.1 mmHg FINDINGS Left Ventricle Left ventricular ejection fraction is estimated at 50-55%. Moderately increased left ventricular wall thickness. Right Ventricle Normal right ventricular size and function. Moderate pulmonary hypertension. Right Atrium Normal right atrial size. Left Atrium Mildly increased left atrial diameter. Severely increased left atrial volume. Mildly increased left atrial area. Mitral Valve Structurally normal mitral valve. Mild mitral regurgitation. Aortic Valve No aortic valve stenosis or regurgitation. Mild aortic regurgitation. Tricuspid Valve Structurally normal tricuspid valve. Moderate tricuspid regurgitation. Pulmonic Valve Structurally normal pulmonic valve. Pericardium Normal pericardium. Aorta Normal size aortic root and proximal ascending aorta. CONCLUSIONS Normal LV systolic function Left atrial enlargement Mild mitral and dilated regurgitation Moderate tricuspid regurgitation Moderate pulmonary hypertension Previewed by: Dr. Miky Jaquez MD (Electronically Signed) Final Date: 08 July 2022 13:08
[2022-07-08 13:13] VITALS: BMI 22.8
[2022-07-08] MEDS: RIVAROXABAN 15 MG TAB PO SCH (16:44)
--- NOTE | 2022-07-08 16:47 | P.PN ---
Subjective Patient seen and examined at bedside. Patient is resting in bed comfortably. Patient denies chest pain shortness breath nausea vomiting fevers or chills. Patient is awaiting placement. Objective - Vital Signs Vital signs: Vital Signs Temp 99.2 F 07/08/22 15:29 Pulse 81 07/08/22 15:29 Resp 16 07/08/22 15:29 BP 146/65 07/08/22 15:29 Pulse Ox 96 07/08/22 15:29 FiO2 Intake & Output 07/07/22 07/08/22 07/08/22 18:59 06:59 18:59 Intake Total 240 123 Output Total 500 400 Balance -260 -400 123 Weight 56.699 kg Intake: IV 5 Invasive Line 3 5 Oral 240 118 Output: Urine 500 400 Other: Voiding Method External Catheter External Catheter Indwelling Catheter # Bowel Movements 1 1 - Exam General: [non toxic], [no distress], [appears at stated age] Derm: [warm], [dry] Head: [atraumatic], [normocephalic], [symmetric] Eyes: [EOMI], [no lid lag], [anicteric sclera] Mouth: [no lip lesion], [mucus membranes moist] Cardiovascular: [S1S2 reg], [no murmur], [positive posterior tibial pulse bilateral], Lungs: [CTA bilateral], [no rhonchi, no rales] , [no accessory muscle use] Abdominal: [soft], [ nontender to palpation], [no guarding], [no appreciable organomegaly] Ext: [no gross muscle atrophy], [no edema], [no contractures] Neuro: [ left sided weakness and left side neglect left facial droop ] Psych: [Alert] [appropriate affect. - Labs CBC & Chem 7: 07/08/22 08:14 07/08/22 08:14 Labs: Abnormal Lab Results - Last 24 Hours (Table) 07/08/22 07/08/22 07/08/22 Range/Units 08:14 08:14 09:00 RBC 3.12 L (3.80-5.40) m/uL Hgb 9.0 L (11.4-16.0) gm/dL Hct 28.4 L (34.0-46.0) % Glucose 116 H (74-99) mg/dL Calcium 7.7 L (8.4-10.2) mg/dL Total Protein 5.3 L (6.3-8.2) g/dL Albumin 2.9 L (3.5-5.0) g/dL Urine Protein 1+ H (Negative) Urine Ketones 2+ H (Negative) Ur Leukocyte Esterase Large H (Negative) Urine WBC 49 H (0-5) /hpf Urine Bacteria Rare H (None) /hpf Urine Mucus Occasional H (None) /hpf Assessment and Plan Assessment: Acute CVA Neurology recommendations appreciated Repeat CT scheduled for today PT/OT continue current medications cardiology recs appreciated Acute intertrochanteric left femur fracture - s/p IM nailing - management per ortho - PT/OT acute blood loss anemia, on iron deficiency anemia - IV iron today - Ferritin elevated due to acute phase reactant, Sat less than 10 so need IV iron - follow CBC A fib rate controlled on Xarelto -Xarelto restarted - coreg - cardiology recs apprecaited HTN, controlled - coreg, hydralazine, cozaar DM II - episode of asymptomiatc hypoglycemia on 07/05- did not receive insulin prior, continue to monitor - SSI - follow BS - A1C 6.9 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
[2022-07-08 16:56] LABS: Glucose,Whole Blood 196 mg/dL (70-110)
[2022-07-08 19:11] LABS: Glucose,Whole Blood 194 mg/dL (70-110)
[2022-07-08] MEDS: SENNOSIDES-DOCUSATE SODIUM 1 EACH TAB PO SCH (20:23)
[2022-07-08] MEDS: ATORVASTATIN 40 MG TAB PO SCH (20:23)
[2022-07-09 05:33] LABS: Glucose,Whole Blood 113 mg/dL (70-110)
[2022-07-09] MEDS: INSULIN ASPART (NovoLOG) 100 UNIT/ML VIAL SQ SCH ×4 (05:46→21:13)
[2022-07-09] MEDS: SODIUM CHLORIDE 0.9% 1,000 ML IV SCH ×2 (06:58→20:46)
[2022-07-09] MEDS: ACETAMINOPHEN TAB 325 MG TAB PO PRN ×2 (08:44→21:21)
[2022-07-09] MEDS: FAMOTIDINE 20 MG TAB PO SCH (08:45)
[2022-07-09] MEDS: hydrALAZINE HCL 50 MG TAB PO SCH ×3 (08:45→21:22)
[2022-07-09] MEDS: LOSARTAN 50 MG TAB PO SCH (08:45)
[2022-07-09] MEDS: POTASSIUM CHLORIDE ER 10 MEQ TAB.ER.PRT PO SCH (08:45)
[2022-07-09] MEDS: OXYBUTYNIN XL 5 MG TAB.ER.24 PO SCH (08:45)
[2022-07-09] MEDS: MAGNESIUM OXIDE 400 MG TAB PO SCH (08:45)
[2022-07-09 10:04] LABS: ALT 22 U/L (4-34); AST 31 U/L (14-36); African American GFR (CKD) >90 (>60 ml/min/1.73 sqM); Albumin 2.9 g/dL (3.5-5.0); Alkaline Phosphatase 71 U/L (38-126); Anion Gap 11 mmol/L; Blood Urea Nitrogen 11 mg/dL (7-17); Calcium 7.7 mg/dL (8.4-10.2); Carbon Dioxide 21 mmol/L (22-30); Chloride 103 mmol/L (98-107); Glucose 94 mg/dL (74-99); Non-African American GFR(CKD) >90 (>60 ml/min/1.73 sqM); Potassium 3.8 mmol/L (3.5-5.1); Sodium 135 mmol/L (137-145); Total Bilirubin 0.9 mg/dL (0.2-1.3); Total Protein 5.4 g/dL (6.3-8.2)
[2022-07-09 10:17] LABS: Basophils % (A) 0 %; Eosinophils # (A) 0.1 k/uL (0-0.7); Eosinophils % (A) 1 %; HCT 27.2 % (34.0-46.0); HGB 8.6 gm/dL (11.4-16.0); Lymphocytes # (A) 1.3 k/uL (1.0-4.8); Lymphocytes % (A) 10 %; MCH 27.5 pg (25.0-35.0); MCHC 31.7 g/dL (31.0-37.0); MCV 86.7 fL (80.0-100.0); Mean Platelet Volume 8.8; Monocytes # (A) 0.7 k/uL (0-1.0); Monocytes % (A) 6 %; Neutrophils # (A) 10.2 k/uL (1.3-7.7); Neutrophils % (A) 83 %; Platelet Count 335 k/uL (150-450); RBC 3.14 m/uL (3.80-5.40); RDW 14.4 % (11.5-15.5); WBC 12.4 k/uL (3.8-10.6)
[2022-07-09 11:31] LABS: Glucose,Whole Blood 205 mg/dL (70-110)
[2022-07-09] MEDS: carvediloL 12.5 MG TAB PO SCH ×2 (12:19→16:06)
--- NOTE | 2022-07-09 12:44 | P.PN ---
Subjective Progress Note Date: 07/09/22 Patient seen and examined at bedside. Patient is resting in bed comfortably. Patient denies chest pain shortness breath nausea vomiting fevers or chills. Patient is awaiting placement. Objective - Vital Signs Vital signs: Vital Signs Temp 97.8 F 07/09/22 11:41 Pulse 68 07/09/22 11:41 Resp 16 07/09/22 11:41 BP 116/58 07/09/22 11:41 Pulse Ox 93 L 07/09/22 11:41 FiO2 Intake & Output 07/08/22 07/09/22 07/09/22 18:59 06:59 18:59 Intake Total 363 118 Output Total 400 Balance 363 -400 118 Weight 56.699 kg Intake: IV 5 Invasive Line 3 5 Oral 358 118 Output: Urine 400 Other: Voiding Method Indwelling Catheter Indwelling Catheter Indwelling Catheter # Bowel Movements 1 1 - Exam General: [non toxic], [no distress], [appears at stated age] Derm: [warm], [dry] Head: [atraumatic], [normocephalic], [symmetric] Eyes: [EOMI], [no lid lag], [anicteric sclera] Mouth: [no lip lesion], [mucus membranes moist] Cardiovascular: [S1S2 reg], [no murmur], [positive posterior tibial pulse bilat eral], Lungs: [CTA bilateral], [no rhonchi, no rales] , [no accessory muscle use] Abdominal: [soft], [ nontender to palpation], [no guarding], [no appreciable organomegaly] Ext: [no gross muscle atrophy], [no edema], [no contractures] Neuro: [ left sided weakness and left side neglect left facial droop ] Psych: [Alert] [appropriate affect. - Labs CBC & Chem 7: 07/09/22 08:59 07/09/22 08:59 Labs: Abnormal Lab Results - Last 24 Hours (Table) 07/08/22 07/08/22 07/09/22 Range/Units 16:40 19:10 05:32 WBC (3.8-10.6) k/uL RBC (3.80-5.40) m/uL Hgb (11.4-16.0) gm/dL Hct (34.0-46.0) % Neutrophils # (1.3-7.7) k/uL Sodium (137-145) mmol/L Carbon Dioxide (22-30) mmol/L Creatinine (0.52-1.04) mg/dL POC Glucose (mg/dL) 196 H 194 H 113 H (70-110) mg/dL Calcium (8.4-10.2) mg/dL Total Protein (6.3-8.2) g/dL Albumin (3.5-5.0) g/dL 07/09/22 07/09/22 07/09/22 Range/Units 08:59 08:59 11:30 WBC 12.4 H (3.8-10.6) k/uL RBC 3.14 L (3.80-5.40) m/uL Hgb 8.6 L (11.4-16.0) gm/dL Hct 27.2 L (34.0-46.0) % Neutrophils # 10.2 H (1.3-7.7) k/uL Sodium 135 L (137-145) mmol/L Carbon Dioxide 21 L (22-30) mmol/L Creatinine 0.45 L (0.52-1.04) mg/dL POC Glucose (mg/dL) 205 H (70-110) mg/dL Calcium 7.7 L (8.4-10.2) mg/dL Total Protein 5.4 L (6.3-8.2) g/dL Albumin 2.9 L (3.5-5.0) g/dL Microbiology - Last 24 Hours (Table) 07/08/22 08:14 Blood Culture - Preliminary Blood No Growth after 24 hours 07/08/22 08:32 Blood Culture - Preliminary Blood No Growth after 24 hours 07/08/22 09:00 Urine Culture - Preliminary Urine,Voided Assessment and Plan Assessment: Acute CVA PT/OT continue current medications Cardiology recs appreciated Neurology recommendations appreciated Acute intertrochanteric left femur fracture - s/p IM nailing - management per ortho - PT/OT acute blood loss anemia, on iron deficiency anemia - IV iron today - Ferritin elevated due to acute phase reactant, Sat less than 10 so need IV iron - follow CBC A fib rate controlled on Xarelto -Xarelto restarted - coreg - cardiology recs apprecaited HTN, controlled - coreg, hydralazine, cozaar DM II - episode of asymptomiatc hypoglycemia on 07/05- did not receive insulin prior, continue to monitor - SSI - follow BS - A1C 6.9 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
--- NOTE | 2022-07-09 15:28 | P.PN ---
Subjective Progress Note Date: 07/09/22 This is a pleasant 81-year-old female past medical history significant for hypertension, hyperlipidemia, permanent atrial fibrillation on Xarelto, sick sinus syndrome status post single-chamber pacemaker 05/2021 CVA, type 2 diabetes, former smoker. She follows in the office with Dr. Carias. We have been asked to see in consultation for cardiac clearance. Patient presents emergency department after a fall at home. She states she was doing well at home and was getting up from bed and her walker went too far ahead of her and she fell onto her left hip. She denies any chest pain, lightheadedness, dizziness, near syncope or loss of consciousness, no shortness of breath. She was found to have a left hip intertrochanteric fracture of left femur. Orthopedics have evaluated the patient and underwent Left Hip Intertrochanter Nail. She subsequently suffered an acute ischemic CVA. Initially anticoagulation was placed on hold per neurology pending computed tomography scan which did not reveal any evidence of hemorrhagic conversion. 07/09/2022 Upon examination patient is quite sleepy. According to nursing staff she slept most of the day yesterday was likely awake most of the night. Patient's anticoagulation has been resumed. She denies any shortness of breath or chest discomfort. Vital signs are stable. Objective - Vital Signs Vital signs: Vital Signs Temp 97.8 F 07/09/22 11:41 Pulse 68 07/09/22 14:00 Resp 16 07/09/22 14:00 BP 116/58 07/09/22 11:41 Pulse Ox 93 L 07/09/22 11:41 FiO2 Intake & Output 07/08/22 07/09/22 07/09/22 18:59 06:59 18:59 Intake Total 363 118 Output Total 400 Balance 363 -400 118 Weight 56.699 kg Intake: IV 5 Invasive Line 3 5 Oral 358 118 Output: Urine 400 Other: Voiding Method Indwelling Catheter Indwelling Catheter Indwelling Catheter # Bowel Movements 1 1 - Exam GENERAL: Well-developed in no acute distress. NECK: Supple. No JVD or thyromegaly LUNGS: Respirations even and unlabored. Lungs essentially clear to auscultation bilaterally. HEART: Irregular rate and rhythm. S1 and S2 heard. EXTREMITIES: Normal range of motion. No clubbing or cyanosis. Peripheral pulses intact. No lower extremity edema - Labs CBC & Chem 7: 07/09/22 08:59 07/09/22 08:59 Labs: Abnormal Lab Results - Last 24 Hours (Table) 07/08/22 07/08/22 07/09/22 Range/Units 16:40 19:10 05:32 WBC (3.8-10.6) k/uL RBC (3.80-5.40) m/uL Hgb (11.4-16.0) gm/dL Hct (34.0-46.0) % Neutrophils # (1.3-7.7) k/uL Sodium (137-145) mmol/L Carbon Dioxide (22-30) mmol/L Creatinine (0.52-1.04) mg/dL POC Glucose (mg/dL) 196 H 194 H 113 H (70-110) mg/dL Calcium (8.4-10.2) mg/dL Total Protein (6.3-8.2) g/dL Albumin (3.5-5.0) g/dL 07/09/22 07/09/22 07/09/22 Range/Units 08:59 08:59 11:30 WBC 12.4 H (3.8-10.6) k/uL RBC 3.14 L (3.80-5.40) m/uL Hgb 8.6 L (11.4-16.0) gm/dL Hct 27.2 L (34.0-46.0) % Neutrophils # 10.2 H (1.3-7.7) k/uL Sodium 135 L (137-145) mmol/L Carbon Dioxide 21 L (22-30) mmol/L Creatinine 0.45 L (0.52-1.04) mg/dL POC Glucose (mg/dL) 205 H (70-110) mg/dL Calcium 7.7 L (8.4-10.2) mg/dL Total Protein 5.4 L (6.3-8.2) g/dL Albumin 2.9 L (3.5-5.0) g/dL Microbiology - Last 24 Hours (Table) 07/08/22 09:00 Urine Culture - Final Urine,Voided 07/08/22 08:14 Blood Culture - Preliminary Blood No Growth after 24 hours 07/08/22 08:32 Blood Culture - Preliminary Blood No Growth after 24 hours Assessment and Plan Assessment: Acute intertrochanteric fracture of left femur s/p Intramedullary nailing of Left hip on 07/04/2020 Mechanical fall at home Acute CVA Sick sinus syndrome status post single-chamber pacemaker implantation 05/2021 Hypertension Hyperlipidemia Permanent atrial fibrillation on Xarelto Non-obstructive coronary artery disease History of prior CVA Type 2 diabetes Former smoker Plan: From cardiology's perspective medications were reviewed and we will continue the same. We will follow the patient on an as-needed basis. She will follow-up in the office with Dr. Evans. ACCESS ANALYST note has been reviewed, I agree with a documented findings and plan of care. Patient was seen and examined.
--- NOTE | 2022-07-09 15:48 | P.PN ---
Subjective Progress Note Date: 07/08/22 Patient was seen for a follow-up. Patient is laying comfortably in the bed. Patient denies any headache. Denies dizziness. She has much improved clinically as compared to yesterday. Objective - Vital Signs Vital signs: Vital Signs Temp 99.2 F 07/08/22 15:29 Pulse 81 07/08/22 15:29 Resp 16 07/08/22 15:29 BP 146/65 07/08/22 15:29 Pulse Ox 96 07/08/22 15:29 FiO2 Intake & Output 07/08/22 07/08/22 07/09/22 06:59 18:59 06:59 Intake Total 363 Output Total 400 Balance -400 363 Weight 56.699 kg Intake: IV 5 Invasive Line 3 5 Oral 358 Output: Urine 400 Other: Voiding Method External Catheter Indwelling Catheter # Bowel Movements 1 1 - Exam Patient is an elderly female, very pleasant, in no acute distress. Patient is slightly groggy. Her speech and language functions are normal. On cranial nerve examination, pupils are equal, round and reacting to light, visual callejas reveal complete left homonymous hemianopia. Extraocular muscles are intact with no nystagmus. Patient has left facial asymmetry. Her tongue protrudes to the midline. Palatal elevation and sensation normal, hearing is slightly decreased and shoulder shrug normal, facial sensation normal. On muscle strength testing, there is mild left pronator drift. 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 In the lower limbs, her left leg is very weak. Right leg appears fairly normal. Patient has Babinski on the left, but downgoing plantar on the right. Sensory to touch is feeling better in the right arm and right leg as compared to the left side. She does neglect left side on double simultaneous stimulation. Cerebellar function showed no ataxia for cinbvo-fo-bulo testing on either side. Tone and bulk of muscles normal. Gait deferred.. On general examination, there is no carotid bruit or murmur, S1-S2 audible. Chest is clear on consultation. Abdomen is soft nontender. No organomegaly, bowel sounds present. Peripheral pulses are present. No edema. - Labs CBC & Chem 7: 07/09/22 08:59 07/09/22 08:59 Labs: Abnormal Lab Results - Last 24 Hours (Table) 07/08/22 07/08/22 07/08/22 Range/Units 08:14 08:14 09:00 RBC 3.12 L (3.80-5.40) m/uL Hgb 9.0 L (11.4-16.0) gm/dL Hct 28.4 L (34.0-46.0) % Glucose 116 H (74-99) mg/dL POC Glucose (mg/dL) (70-110) mg/dL Calcium 7.7 L (8.4-10.2) mg/dL Total Protein 5.3 L (6.3-8.2) g/dL Albumin 2.9 L (3.5-5.0) g/dL Urine Protein 1+ H (Negative) Urine Ketones 2+ H (Negative) Ur Leukocyte Esterase Large H (Negative) Urine WBC 49 H (0-5) /hpf Urine Bacteria Rare H (None) /hpf Urine Mucus Occasional H (None) /hpf 07/08/22 07/08/22 Range/Units 16:40 19:10 RBC (3.80-5.40) m/uL Hgb (11.4-16.0) gm/dL Hct (34.0-46.0) % Glucose (74-99) mg/dL POC Glucose (mg/dL) 196 H 194 H (70-110) mg/dL Calcium (8.4-10.2) mg/dL Total Protein (6.3-8.2) g/dL Albumin (3.5-5.0) g/dL Urine Protein (Negative) Urine Ketones (Negative) Ur Leukocyte Esterase (Negative) Urine WBC (0-5) /hpf Urine Bacteria (None) /hpf Urine Mucus (None) /hpf Microbiology - Last 24 Hours (Table) 07/08/22 09:00 Urine Culture - Preliminary Urine,Voided Assessment and Plan Assessment: * Acute ischemic stroke right hemispheric region involving the right temporal and occipital region with extension to the right parietal region. Event appears embolic, 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 * Atrial fibrillation * Recent fall 07/02/2022, status post left hip arthroplasty 07/04/2022. * History of multiple strokes in the past (all related to missing doses of anticoagulation). * Diabetes * Hyperlipidemia * Hypertension * Pacemaker Plan: * Patient is neurologically stable. Examination in fact revealed improved strength in the left upper extremity as compared to yesterday. * Repeat CT head was performed today. It revealed right MCA territory infarct without evidence of hemorrhagic conversion. There is effacement of the right lateral ventricle without evidence of midline shift. On my review, appears there is an additional area of acute/subacute infarct involving the left JOHNATHON territory just superior to the remote injury on the left temporal and occipital region. I reviewed it with Dr. Paulino, and he agreed. Please refer to the addended report. * Carotid Doppler revealed mild to moderate atherosclerotic plaque of both carotid system and less than 50% stenosis of the right ICA and 50-69% stenosis of the left ICA. * 2-D echo revealed normal left ventricular systolic function. Left atrial enlargement. Mild mitral and aortic regurgitation. Moderate tricuspid regurgitation. EF 50-55% * Continue Xarelto at the same dose. Benefits of anticoagulation significantly outweigh the hemorrhagic risks. * Hemoglobin A1c 6.9 * Lipid panel with cholesterol 84, LDL 33, HDL 32 and triglycerides 92. Continue Lipitor 40 mg daily. * Neurologically clear for discharge.
[2022-07-09] MEDS: HYDROcodone/APAP 5-325MG 1 EACH TAB PO PRN (16:06)
[2022-07-09] MEDS: RIVAROXABAN 15 MG TAB PO SCH (16:06)
[2022-07-09 16:44] LABS: Glucose,Whole Blood 168 mg/dL (70-110)
[2022-07-09 20:57] LABS: Glucose,Whole Blood 137 mg/dL (70-110)
[2022-07-09] MEDS: SENNOSIDES-DOCUSATE SODIUM 1 EACH TAB PO SCH (21:21)
[2022-07-09] MEDS: ATORVASTATIN 40 MG TAB PO SCH (21:22)
[2022-07-10] MEDS: HYDROcodone/APAP 5-325MG 1 EACH TAB PO PRN (04:37)
[2022-07-10 06:08] LABS: Glucose,Whole Blood 98 mg/dL (70-110)
[2022-07-10] MEDS: INSULIN ASPART (NovoLOG) 100 UNIT/ML VIAL SQ SCH ×4 (06:37→20:38)
[2022-07-10] MEDS: FAMOTIDINE 20 MG TAB PO SCH (08:06)
[2022-07-10] MEDS: MAGNESIUM OXIDE 400 MG TAB PO SCH (08:06)
[2022-07-10] MEDS: OXYBUTYNIN XL 5 MG TAB.ER.24 PO SCH (08:06)
[2022-07-10] MEDS: LOSARTAN 50 MG TAB PO SCH (08:06)
[2022-07-10] MEDS: hydrALAZINE HCL 50 MG TAB PO SCH ×3 (08:06→20:39)
[2022-07-10] MEDS: POTASSIUM CHLORIDE ER 10 MEQ TAB.ER.PRT PO SCH (08:06)
[2022-07-10 08:33] LABS: Basophils % (A) 0 %; Eosinophils # (A) 0.2 k/uL (0-0.7); Eosinophils % (A) 2 %; HCT 25.5 % (34.0-46.0); HGB 7.8 gm/dL (11.4-16.0); Lymphocytes # (A) 1.6 k/uL (1.0-4.8); Lymphocytes % (A) 14 %; MCH 26.7 pg (25.0-35.0); MCHC 30.7 g/dL (31.0-37.0); MCV 87.1 fL (80.0-100.0); Mean Platelet Volume 8.3; Monocytes # (A) 0.6 k/uL (0-1.0); Monocytes % (A) 6 %; Neutrophils % (A) 78 %; Platelet Count 355 k/uL (150-450); RBC 2.92 m/uL (3.80-5.40); RDW 14.4 % (11.5-15.5); WBC 11.5 k/uL (3.8-10.6)
--- NOTE | 2022-07-10 08:39 | P.PN ---
Subjective Progress Note Date: 07/09/22 This is a telemedicine neurology follow performed today on 07/09/2022 Patient was seen for a follow-up. Patient is laying comfortably in the bed. Patient is slightly groggy. Patient denies any headache, no dizziness. Patient did have mild nausea earlier but, but no vomiting. Objective - Vital Signs Vital signs: Vital Signs Temp 100.5 F H 07/09/22 08:52 Pulse 83 07/09/22 08:53 Resp 16 07/09/22 08:53 BP 195/78 07/09/22 08:52 Pulse Ox 92 L 07/09/22 08:52 FiO2 Intake & Output 07/08/22 07/09/22 07/09/22 18:59 06:59 18:59 Intake Total 363 118 Output Total 400 Balance 363 -400 118 Weight 56.699 kg Intake: IV 5 Invasive Line 3 5 Oral 358 118 Output: Urine 400 Other: Voiding Method Indwelling Catheter Indwelling Catheter Indwelling Catheter # Bowel Movements 1 - Exam Patient is an elderly female, very pleasant, in no acute distress. Patient is slightly groggy. Her speech and language functions are normal. Detailed examination deferred. Please refer to examination from 07/08/2022. - Labs CBC & Chem 7: 07/10/22 07:27 07/09/22 08:59 Labs: Abnormal Lab Results - Last 24 Hours (Table) 07/08/22 07/08/22 07/09/22 Range/Units 16:40 19:10 05:32 WBC (3.8-10.6) k/uL RBC (3.80-5.40) m/uL Hgb (11.4-16.0) gm/dL Hct (34.0-46.0) % Neutrophils # (1.3-7.7) k/uL Sodium (137-145) mmol/L Carbon Dioxide (22-30) mmol/L Creatinine (0.52-1.04) mg/dL POC Glucose (mg/dL) 196 H 194 H 113 H (70-110) mg/dL Calcium (8.4-10.2) mg/dL Total Protein (6.3-8.2) g/dL Albumin (3.5-5.0) g/dL 09/24/22 09/24/22 09/24/22 Range/Units 08:59 08:59 11:30 WBC 12.4 H (3.8-10.6) k/uL RBC 3.14 L (3.80-5.40) m/uL Hgb 8.6 L (11.4-16.0) gm/dL Hct 27.2 L (34.0-46.0) % Neutrophils # 10.2 H (1.3-7.7) k/uL Sodium 135 L (137-145) mmol/L Carbon Dioxide 21 L (22-30) mmol/L Creatinine 0.45 L (0.52-1.04) mg/dL POC Glucose (mg/dL) 205 H (70-110) mg/dL Calcium 7.7 L (8.4-10.2) mg/dL Total Protein 5.4 L (6.3-8.2) g/dL Albumin 2.9 L (3.5-5.0) g/dL Microbiology - Last 24 Hours (Table) 07/08/22 08:14 Blood Culture - Preliminary Blood No Growth after 24 hours 07/08/22 08:32 Blood Culture - Preliminary Blood No Growth after 24 hours 07/08/22 09:00 Urine Culture - Preliminary Urine,Voided Assessment and Plan Assessment: * Acute ischemic stroke right hemispheric region involving the right temporal and occipital region with extension to the right parietal region. Event cesario ears embolic, 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 * Atrial fibrillation * Recent fall 07/02/2022, status post left hip arthroplasty 07/04/2022. * History of multiple strokes in the past (all related to missing doses of anticoagulation). * Diabetes * Hyperlipidemia * Hypertension * Pacemaker Plan: * Patient is neurologically stable. Examination in fact revealed improved strength in the left upper extremity as compared to yesterday. * Repeat CT head 07/07/2022 revealed right MCA territory infarct without evidence of hemorrhagic conversion. There is effacement of the right lateral ventricle without evidence of midline shift. On my review, appears there is an additional area of acute/subacute infarct involving the left JOHNATHON territory just superior to the remote injury on the left temporal and occipital region. I reviewed it with Dr. Paulino, and he agreed. Please refer to the addended report. * Carotid Doppler revealed mild to moderate atherosclerotic plaque of both carotid system and less than 50% stenosis of the right ICA and 50-69% stenosis of the left ICA. * 2-D echo revealed normal left ventricular systolic function. Left atrial enlargement. Mild mitral and aortic regurgitation. Moderate tricuspid regurgitation. EF 50-55% * Continue Xarelto at the same dose. Benefits of anticoagulation significantly outweigh the hemorrhagic risks. * Hemoglobin A1c 6.9 * Lipid panel with cholesterol 84, LDL 33, HDL 32 and triglycerides 92. Continue Lipitor 40 mg daily. * Neurologically clear for discharge.
[2022-07-10 08:51] LABS: African American GFR (CKD) >90 (>60 ml/min/1.73 sqM); Anion Gap 9 mmol/L; Blood Urea Nitrogen 10 mg/dL (7-17); Calcium 7.5 mg/dL (8.4-10.2); Carbon Dioxide 23 mmol/L (22-30); Chloride 106 mmol/L (98-107); Glucose 93 mg/dL (74-99); Magnesium 1.6 mg/dL (1.6-2.3); Non-African American GFR(CKD) 88 (>60 ml/min/1.73 sqM); Phosphorus 2.6 mg/dL (2.5-4.5); Potassium 3.3 mmol/L (3.5-5.1); Sodium 138 mmol/L (137-145)
[2022-07-10] MEDS: POTASSIUM CHLORIDE 10 MEQ in WATER FOR INJECTION 1 100ML.BAG IVPB SCH ×4 (10:31→14:00)
[2022-07-10 12:11] LABS: Glucose,Whole Blood 178 mg/dL (70-110)
[2022-07-10] MEDS: carvediloL 12.5 MG TAB PO SCH ×2 (12:45→17:22)
--- NOTE | 2022-07-10 13:24 | P.PN ---
Subjective Progress Note Date: 07/10/22 Patient seen and examined at bedside. Patient is resting in bed comfortably. Patient denies chest pain shortness breath nausea vomiting fevers or chills. Patient is awaiting placement. Objective - Vital Signs Vital signs: Vital Signs Temp 96.7 F L 07/10/22 08:05 Pulse 69 07/10/22 12:00 Resp 16 07/10/22 12:00 BP 144/88 07/10/22 12:00 Pulse Ox 97 07/10/22 12:00 FiO2 Intake & Output 07/09/22 07/10/22 07/10/22 18:59 06:59 18:59 Intake Total 118 180 Output Total 850 450 Balance 118 -850 -270 Intake: Oral 118 180 Output: Urine 850 450 Other: Voiding Method Indwelling Catheter Indwelling Catheter Indwelling Catheter # Bowel Movements 1 1 1 - Exam General: [non toxic], [no distress], [appears at stated age] Derm: [warm], [dry] Head: [atraumatic], [normocephalic], [symmetric] Eyes: [EOMI], [no lid lag], [anicteric sclera] Mouth: [no lip lesion], [mucus membranes moist] Cardiovascular: [S1S2 reg], [no murmur], [positive posterior tibial pulse bilateral], Lungs: [CTA bilateral], [no rhonchi, no rales] , [no accessory muscle use] Abdominal: [soft], [ nontender to palpation], [no guarding], [no appreciable organomegaly] Ext: [no gross muscle atrophy], [no edema], [no contractures] Neuro: [ left sided weakness and left side neglect left facial droop ] Psych: [Alert] [appropriate affect. - Labs CBC & Chem 7: 07/10/22 07:27 07/10/22 07:27 Labs: Abnormal Lab Results - Last 24 Hours (Table) 07/09/22 07/09/22 07/10/22 Range/Units 16:42 20:56 07:27 WBC 11.5 H (3.8-10.6) k/uL RBC 2.92 L (3.80-5.40) m/uL Hgb 7.8 L (11.4-16.0) gm/dL Hct 25.5 L (34.0-46.0) % MCHC 30.7 L (31.0-37.0) g/dL Neutrophils # 9.0 H (1.3-7.7) k/uL Potassium (3.5-5.1) mmol/L POC Glucose (mg/dL) 168 H 137 H (70-110) mg/dL Calcium (8.4-10.2) mg/dL 07/10/22 07/10/22 Range/Units 07:27 11:53 WBC (3.8-10.6) k/uL RBC (3.80-5.40) m/uL Hgb (11.4-16.0) gm/dL Hct (34.0-46.0) % MCHC (31.0-37.0) g/dL Neutrophils # (1.3-7.7) k/uL Potassium 3.3 L (3.5-5.1) mmol/L POC Glucose (mg/dL) 178 H (70-110) mg/dL Calcium 7.5 L (8.4-10.2) mg/dL Microbiology - Last 24 Hours (Table) 07/08/22 08:14 Blood Culture - Preliminary Blood No Growth after 48 hours 07/08/22 08:32 Blood Culture - Preliminary Blood No Growth after 48 hours 07/08/22 09:00 Urine Culture - Final Urine,Voided Assessment and Plan Assessment: Acute CVA PT/OT continue current medications Cardiology recs appreciated Neurology recommendations appreciated Acute intertrochanteric left femur fracture - s/p IM nailing - management per ortho - PT/OT acute blood loss anemia, on iron deficiency anemia - IV iron today - Ferritin elevated due to acute phase reactant, Sat less than 10 so need IV iron - follow CBC A fib rate controlled on Xarelto -Xarelto restarted - coreg - cardiology recs apprecaited HTN, controlled - coreg, hydralazine, cozaar DM II - episode of asymptomiatc hypoglycemia on 07/05- did not receive insulin prior, continue to monitor - SSI - follow BS - A1C 6.9 GI/DVT prophylaxis AM labs Discharge planning awaiting placement
[2022-07-10] MEDS ORDERED: Magnesium Replacement Protocol 1 EACH MISC MISCELLANE PRN (15:17)
[2022-07-10] MEDS: MAGNESIUM SULFATE-D5W PMX 1 GM in DEXTROSE/WATER 1 100ML.BAG IVPB SCH ×2 (15:47→17:21)
[2022-07-10 17:22] LABS: Glucose,Whole Blood 152 mg/dL (70-110)
[2022-07-10] MEDS: RIVAROXABAN 15 MG TAB PO SCH (17:22)
[2022-07-10 20:27] LABS: Glucose,Whole Blood 169 mg/dL (70-110)
[2022-07-10] MEDS: SENNOSIDES-DOCUSATE SODIUM 1 EACH TAB PO SCH (20:37)
[2022-07-10] MEDS: ACETAMINOPHEN TAB 325 MG TAB PO PRN (20:37)
[2022-07-10] MEDS: ATORVASTATIN 40 MG TAB PO SCH (20:37)
[2022-07-10] MEDS: SODIUM CHLORIDE 0.9% 1,000 ML IV SCH (20:40)
--- NOTE | 2022-07-10 21:42 | P.PN ---
Subjective Progress Note Date: 07/10/22 This is a telemedicine neurology follow performed today on 07/10/2022 Patient was seen for a follow-up. Patient is laying comfortably in the bed. Patient is very much alert and awake. Patient denies any headache, no dizziness. No nausea or vomiting. Objective - Vital Signs Vital signs: Vital Signs Temp 96.7 F L 07/10/22 16:00 Pulse 71 07/10/22 16:00 Resp 16 07/10/22 16:00 BP 168/80 07/10/22 16:00 Pulse Ox 98 07/10/22 16:00 FiO2 Intake & Output 07/10/22 07/10/22 07/11/22 06:59 18:59 06:59 Intake Total 438 Output Total 850 450 Balance -850 -12 Intake: Oral 438 Output: Urine 850 450 Other: Voiding Method Indwelling Catheter Indwelling Catheter # Bowel Movements 1 1 - Exam Patient is an elderly female, very pleasant, in no acute distress. Patient is slightly groggy. Her speech and language functions are normal. Patient has mild left arm weakness, getting better. - Labs CBC & Chem 7: 07/10/22 07:27 07/10/22 07:27 Labs: Abnormal Lab Results - Last 24 Hours (Table) 07/10/22 07/10/22 07/10/22 Range/Units 07:27 07:27 11:53 WBC 11.5 H (3.8-10.6) k/uL RBC 2.92 L (3.80-5.40) m/uL Hgb 7.8 L (11.4-16.0) gm/dL Hct 25.5 L (34.0-46.0) % MCHC 30.7 L (31.0-37.0) g/dL Neutrophils # 9.0 H (1.3-7.7) k/uL Potassium 3.3 L (3.5-5.1) mmol/L POC Glucose (mg/dL) 178 H (70-110) mg/dL Calcium 7.5 L (8.4-10.2) mg/dL 07/10/22 07/10/22 Range/Units 17:05 20:26 WBC (3.8-10.6) k/uL RBC (3.80-5.40) m/uL Hgb (11.4-16.0) gm/dL Hct (34.0-46.0) % MCHC (31.0-37.0) g/dL Neutrophils # (1.3-7.7) k/uL Potassium (3.5-5.1) mmol/L POC Glucose (mg/dL) 152 H 169 H (70-110) mg/dL Calcium (8.4-10.2) mg/dL Microbiology - Last 24 Hours (Table) 07/08/22 08:14 Blood Culture - Preliminary Blood No Growth after 48 hours 07/08/22 08:32 Blood Culture - Preliminary Blood No Growth after 48 hours Assessment and Plan Assessment: * Acute ischemic stroke right hemispheric region involving the right temporal and occipital region with extension to the right parietal region. Event appears embolic, 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 * Atrial fibrillation * Recent fall 07/02/2022, status post left hip arthroplasty 07/04/2022. * History of multiple strokes in the past (all related to missing doses of anticoagulation). * Diabetes * Hyperlipidemia * Hypertension * Pacemaker Plan: * Patient is neurologically stable. Examination in fact revealed improved strength in the left upper extremity as compared to yesterday. * Repeat CT head 07/07/2022 revealed right MCA territory infarct without evidence of hemorrhagic conversion. There is effacement of the right lateral ventricle without evidence of midline shift. On my review, appears there is an additional area of acute/subacute infarct involving the left JOHNATHON territory just superior to the remote injury on the left temporal and occipital region. I reviewed it with Dr. Paulino, and he agreed. Please refer to the addended report. * Carotid Doppler revealed mild to moderate atherosclerotic plaque of both carotid system and less than 50% stenosis of the right ICA and 50-69% stenosis of the left ICA. * 2-D echo revealed normal left ventricular systolic function. Left atrial enlargement. Mild mitral and aortic regurgitation. Moderate tricuspid regurgitation. EF 50-55% * Continue Xarelto at the same dose. Benefits of anticoagulation significantly outweigh the hemorrhagic risks. * Hemoglobin A1c 6.9 * Lipid panel with cholesterol 84, LDL 33, HDL 32 and triglycerides 92. Continue Lipitor 40 mg daily. * Neurologically clear for discharge. Dr. Octavio Pritchard will be available for any neurological concerns.
[2022-07-11] MEDS: HYDROcodone/APAP 7.5-325MG 1 EACH TAB PO PRN ×2 (00:06→10:10)
[2022-07-11] MEDS: SODIUM CHLORIDE 0.9% 1,000 ML IV SCH ×2 (00:40→11:31)
[2022-07-11 06:03] LABS: Glucose,Whole Blood 95 mg/dL (70-110)
[2022-07-11] MEDS: INSULIN ASPART (NovoLOG) 100 UNIT/ML VIAL SQ SCH ×3 (06:08→16:56)
[2022-07-11 08:02] VITALS: RESP 18; TEMP 97.7
[2022-07-11] MEDS: hydrALAZINE HCL 50 MG TAB PO SCH ×2 (08:03→17:25)
[2022-07-11] MEDS: POTASSIUM CHLORIDE ER 10 MEQ TAB.ER.PRT PO SCH (08:03)
[2022-07-11] MEDS: ACETAMINOPHEN TAB 325 MG TAB PO PRN (08:03)
[2022-07-11] MEDS: OXYBUTYNIN XL 5 MG TAB.ER.24 PO SCH (08:03)
[2022-07-11] MEDS: MAGNESIUM OXIDE 400 MG TAB PO SCH (08:03)
[2022-07-11] MEDS: LOSARTAN 50 MG TAB PO SCH (08:04)
[2022-07-11] MEDS: FAMOTIDINE 20 MG TAB PO SCH (08:04)
[2022-07-11 09:27] LABS: African American GFR (CKD) >90 (>60 ml/min/1.73 sqM); Anion Gap 10 mmol/L; Blood Urea Nitrogen 8 mg/dL (7-17); Calcium 8.1 mg/dL (8.4-10.2); Carbon Dioxide 23 mmol/L (22-30); Chloride 106 mmol/L (98-107); Glucose 121 mg/dL (74-99); Magnesium 1.8 mg/dL (1.6-2.3); Non-African American GFR(CKD) >90 (>60 ml/min/1.73 sqM); Potassium 3.6 mmol/L (3.5-5.1); Sodium 139 mmol/L (137-145)
[2022-07-11 09:31] LABS: Basophils # (A) 0.1 k/uL (0-0.2); Basophils % (A) 0 %; Eosinophils # (A) 0.2 k/uL (0-0.7); Eosinophils % (A) 2 %; HCT 28.8 % (34.0-46.0); HGB 8.9 gm/dL (11.4-16.0); Lymphocytes # (A) 2.3 k/uL (1.0-4.8); Lymphocytes % (A) 19 %; MCH 27.4 pg (25.0-35.0); MCHC 31.1 g/dL (31.0-37.0); MCV 88.3 fL (80.0-100.0); Mean Platelet Volume 8.3; Monocytes # (A) 0.7 k/uL (0-1.0); Monocytes % (A) 6 %; Neutrophils # (A) 8.8 k/uL (1.3-7.7); Neutrophils % (A) 72 %; Platelet Count 407 k/uL (150-450); RBC 3.26 m/uL (3.80-5.40); RDW 14.7 % (11.5-15.5); WBC 12.2 k/uL (3.8-10.6)
[2022-07-11 11:56] LABS: Glucose,Whole Blood 180 mg/dL (70-110)
[2022-07-11 12:06] VITALS: PULSE 70
[2022-07-11] MEDS: carvediloL 12.5 MG TAB PO SCH ×2 (12:06→17:25)
--- NOTE | 2022-07-11 12:30 | CDI ---
Documentation Clarification Form Date: 07/11/2022 11:15:17 AM From: Juanita Gutierrez RN, CCDS Admit Date: 07/03/2022 04:07:00 AM Patient Name: Consuelo Padilla Visit Number: [id number] Discharge Date: ATTENTION: The Clinical Documentation Specialists (CDI) and [facility] Coding Staff appreciate your assistance in clarifying documentation. Please respond to the clarification below the line at the bottom and electronically sign. The CDI & [facility] Coding staff will review the response and follow-up if needed. Please note: Queries are made part of the Legal Health Record. If you have any questions, please contact the author of this message via ITS. Dr. Cathi Kuo UTI is documented in the progress on 06/17/2022. Additional clarification regarding this diagnosis is requested. History/Risk Factors: Left Hip Fracture, Atrial Fibrillation, Cancer, CVA, Diabetes Mellitus, Hypertension Clinical Indicators: 81-year-old female present with left hip pain, ruled in for left hip fracture. recurrent UTIs 07/03 Vital Signs: 127/68 77 15 98.6. Her past medical history has recurrent UTIs. I/O is showing indwelling Alfaro catheter insertion on 07/04/2207/03 WBC:WBC 11.5 06/02 Urinalysis: Urine Nitrite-Positive, Ur Leukocyte Esterase -Trace, Urine WBC 9, Urine Bacteria -Few 07/08 Urinalysis: Urine Nitrite-Negative, Ur Leukocyte Esterase- Large, Urine WBC 49, Urine Bacteria-few 07/08 Urine Culture: Final -No growth after 18 hours Treatment Rocephin 1GM IVPB Q 24 HRS Monitor I/O Please clarify if there is an additional diagnosis associated with the UTI: [ Yes ] UTI only, Present on admission [ ] UTI, Alfaro catheter associated, not Present on admission [ ] Other, please specify [ ] Unable to determine (Template Last Revised: December 2020) JUDIED
--- NOTE | 2022-07-11 14:26 | P.DS ---
Providers Date of admission: 07/03/22 04:07 Attending physician: Hellen Wild DO Consults: 07/03/22 11:19 Consult Physician Routine Consulting Provider: Giovana Ramirez Consult Reason/Comments: Medical Management Do you want consulting provider notified?: Yes 07/03/22 11:20 Consult Physician Routine Consulting Provider: [facility] Consult Reason/Comments: Surgical clearance Do you want consulting provider notified?: Yes 07/06/22 15:14 Consult Physician Stat Consulting Provider: Kylah Cisneros Consult Reason/Comments: Acute CVA Do you want consulting provider notified?: Yes Primary care physician: Gen Palma Hospital Course: Admitting diagnosis: Hip fracture Discharge diagnosis: Acute CVA Hip Fracture status post IM nailing Iron deficiency anemia Chronic A. fib Hypertension Diabetes mellitus Hyperlipidemia Debility Hospital course: This is a pleasant 81-year-old female who initially was admitted to [facility] to have surgery on her status post fracture. At that time patient was admitted under orthopedic surgery and medicine was on consult. Patient's Xarelto was discontinued for the surgery shortly thereafter patient developed a massive ischemic stroke. CT of the brain completed on 06/2122 revealed a large acute infarct through the right temporal and occipital region with suspect extension into the parietal region. Patient exhibited left hemiparesis with neglect. Cardiology as well as neurology followed. Patient has chronic A. fib and she was deemed to be Xarelto indefinitely. Benefits outweigh the risks. Echocardiogram completed on 07/08/2022 revealed a preserved ejection fraction of 50-55%. Moderate tricuspid regurgitation and moderate pulmonary hypertension was noted. Carotid Dopplers on 07/07/2022 revealed moderate bharathi nosis of the bilateral external carotid arteries with left greater than right. Physical exam: General: [non toxic], [no distress], [appears at stated age] Derm: [warm], [dry] Head: [atraumatic], [normocephalic], [symmetric] Eyes: [EOMI], [no lid lag], [anicteric sclera] Mouth: [no lip lesion], [mucus membranes moist] Cardiovascular: [S1S2 reg], [no murmur], [positive posterior tibial pulse bilateral], Lungs: [CTA bilateral], [no rhonchi, no rales] , [no accessory muscle use] Abdominal: [soft], [ nontender to palpation], [no guarding], [no appreciable organomegaly] Ext: [no gross muscle atrophy], [no edema], [no contractures] Neuro: [ left sided weakness and left side neglect left facial droop ] Psych: [Alert] [appropriate affect Medical course: Acute CVA PT/OT continue current medications Cardiology followed Neurology followed Acute intertrochanteric left femur fracture - s/p IM nailing - management per ortho - PT/OT acute blood loss anemia, on iron deficiency anemia - IV iron received during hospital stay A fib rate controlled on Xarelto -Xarelto restarted - coreg - cardiology follow HTN, controlled - coreg, hydralazine, cozaar DM II - episode of asymptomiatc hypoglycemia on 07/05- did not receive insulin prior, continue to monitor - SSI - follow BS - A1C 6.9 Disposition: SNF Diet: Diabetic Condition: Fair Activity: As tolerated Follow-up with rehab within 24 hours Follow-up with PCP in 3-7 days Follow up with orthopedic surgery in 1-2 weeks Follow-up with cardiology in 1-2 weeks Follow-up with neurology in 1-2 weeks Patient Condition at Discharge: Fair Plan - Discharge Summary New Discharge Prescriptions: New Magnesium Hydroxide [Milk of Magnesia] 400 mg PO DAILY PRN #150 ml PRN Reason: Constipation HYDROcodone/APAP 7.5-325MG [[place] 7.5] 1 each PO Q6HR PRN #21 tab PRN Reason: Pain Sennosides/Docusate Sodium [Senna-S 8.6-50 mg Tablet] 1 each PO DAILY PRN #30 tablet PRN Reason: Constipation cloNIDine HCL [Catapres] 0.2 mg PO QID PRN #90 tab PRN Reason: Blood Pressure - High Losartan [Cozaar] 50 mg PO DAILY #30 tab Amoxic-Pot Clav 875-125Mg [Augmentin 875-125] 1 tab PO BID 1 Days #10 tab Continue Atorvastatin [Lipitor] 40 mg PO HS C,E,Zinc,Copper 11/Ckfoo1q/Lut [Ocuvite Adult 50 Plus Softgel] 1 cap PO DAILY Magnesium Oxide [Mag-Ox] 400 mg PO DAILY 30 Days #30 tablet hydrALAZINE HCL [Apresoline] 50 mg PO TID Acetaminophen [Tylenol 8 Hour] 650 mg PO Q8H PRN PRN Reason: Pain Rivaroxaban [Xarelto] 15 mg PO W/SUPPER Famotidine [Pepcid] 20 mg PO DAILY carvediloL [Coreg*] 12.5 mg PO BID@1200,1700 Potassium Gluconate [Potassium Gluconate ER] 99 mg PO DAILY Oxybutynin Xl [Ditropan XL] 5 mg PO DAILY Nystatin/Triamcin [Nystatin-Triamcinolone Cream] 1 applic TOPICAL DAILY PRN PRN Reason: Rash Lidocaine 5% Oint [Xylocaine 5% Oint] 1 applic TOPICAL TID PRN PRN Reason: Pain Discontinued Losartan [Cozaar] 25 mg PO DAILY Discharge Medication List Atorvastatin [Lipitor] 40 mg PO HS 04/05/17 [History] Acetaminophen [Tylenol 8 Hour] 650 mg PO Q8H PRN 06/13/21 [History] C,E,Zinc,Copper 11/Jirxo0b/Lut [Ocuvite Adult 50 Plus Softgel] 1 cap PO DAILY 08/19/21 [History] Famotidine [Pepcid] 20 mg PO DAILY 08/19/21 [History] Rivaroxaban [Xarelto] 15 mg PO W/SUPPER 08/19/21 [History] Magnesium Oxide [Mag-Ox] 400 mg PO DAILY 30 Days #30 tablet 11/22/21 [Rx] Potassium Gluconate [Potassium Gluconate ER] 99 mg PO DAILY 01/14/22 [History] carvediloL [Coreg*] 12.5 mg PO BID@1200,1700 01/14/22 [History] hydrALAZINE HCL [Apresoline] 50 mg PO TID 01/14/22 [History] Lidocaine 5% Oint [Xylocaine 5% Oint] 1 applic TOPICAL TID PRN 07/03/22 [History] Nystatin/Triamcin [Nystatin-Triamcinolone Cream] 1 applic TOPICAL DAILY PRN 07/03/22 [History] Oxybutynin Xl [Ditropan XL] 5 mg PO DAILY 07/03/22 [History] HYDROcodone/APAP 7.5-325MG [[place] 7.5] 1 each PO Q6HR PRN #21 tab 07/06/22 [Rx] Magnesium Hydroxide [Milk of Magnesia] 400 mg PO DAILY PRN #150 ml 07/06/22 [Rx] Sennosides/Docusate Sodium [Senna-S 8.6-50 mg Tablet] 1 each PO DAILY PRN #30 tablet 07/06/22 [Rx] Amoxic-Pot Clav 875-125Mg [Augmentin 875-125] 1 tab PO BID 1 Days #10 tab 07/11/22 [Rx] Losartan [Cozaar] 50 mg PO DAILY #30 tab 07/11/22 [Rx] cloNIDine HCL [Catapres] 0.2 mg PO QID PRN #90 tab 07/11/22 [Rx] Follow up Appointment(s)/Referral(s): [facility], [NON-STAFF] - As Needed (Agency will contact you.) James Nichols DO [Doctor of Osteopathic Medicine] - 07/21/22 2:50 pm Shadi Evans DO [STAFF PHYSICIAN] - 11/02/22 1:30 pm (Appointment with Dr. Evans and Device CHeck) Gen Palma MD [Primary Care Provider] - 07/11/22 11:15 am Patient Instructions/Handouts: Fall Prevention for Older Adults (DC), Intramedullary Nailing (DC) Activity/Diet/Wound Care/Special Instructions: Orthopedic discharge instructions: 1. Weight-bear as tolerated on the left lower extremity 2. Utilize walker at all times with ambulation 3. Ok to remove foam dressing over incisions on 07/08/2022 4. Keep incisions covered and dry while showering 5. Ok to remove nara on 07/18/2022 6. Ice and elevate the extremity 7. [facility], please call office with any questions Discharge Disposition: TRANSFER TO SNF/ECF
[2022-07-11 16:39] LABS: Glucose,Whole Blood 143 mg/dL (70-110)
[2022-07-11 17:22] VITALS: BP 151/67
[2022-07-11] MEDS: RIVAROXABAN 15 MG TAB PO SCH (17:25)
== END 2022-07-11 18:23 | DRG 480 ==
LOC: EC 01:22 → 4SSUR 04:07 → 3SCARD 07-06 17:26
PROVIDERS: ADMIT Internal Medicine; ATTEND Internal Medicine
PROC: 0QH706Z Insertion of Intramedullary Internal Fixation Device into Left Upper Femur, Open Approach (ICD-10-PCS; principal; 2022-07-04 08:30)
PROC: 8E0WXBF Computer Assisted Procedure of Trunk Region, With Fluoroscopy (ICD-10-PCS; principal; 2022-07-04 08:30)
DX: S72.142A Displaced intertrochanteric fracture of left femur, initial encounter for closed fracture (principal); I63.411 Cerebral infarction due to embolism of right middle cerebral artery; D62 Acute posthemorrhagic anemia; I48.21 Permanent atrial fibrillation; I69.354 Hemiplegia and hemiparesis following cerebral infarction affecting left non-dominant side; N39.0 Urinary tract infection, site not specified; I27.20 Pulmonary hypertension, unspecified; I08.3 Combined rheumatic disorders of mitral, aortic and tricuspid valves; D50.9 Iron deficiency anemia, unspecified; E11.649 Type 2 diabetes mellitus with hypoglycemia without coma; W19.XXXA Unspecified fall, initial encounter; I49.5 Sick sinus syndrome; W01.0XXA Fall on same level from slipping, tripping and stumbling without subsequent striking against object, initial encounter; Z95.0 Presence of cardiac pacemaker; Z87.440 Personal history of urinary (tract) infections; E78.5 Hyperlipidemia, unspecified; I25.10 Atherosclerotic heart disease of native coronary artery without angina pectoris; M81.0 Age-related osteoporosis without current pathological fracture; K59.00 Constipation, unspecified; H02.402 Unspecified ptosis of left eyelid; I10 Essential (primary) hypertension; Y92.009 Unspecified place in unspecified non-institutional (private) residence as the place of occurrence of the external cause; Z79.01 Long term (current) use of anticoagulants; Z79.899 Other long term (current) drug therapy; Z85.41 Personal history of malignant neoplasm of cervix uteri; Z82.49 Family history of ischemic heart disease and other diseases of the circulatory system; Z87.891 Personal history of nicotine dependence; Z90.710 Acquired absence of both cervix and uterus; Z96.642 Presence of left artificial hip joint; Z98.42 Cataract extraction status, left eye; Z98.41 Cataract extraction status, right eye; Z87.19 Personal history of other diseases of the digestive system; Z88.8 Allergy status to other drugs, medicaments and biological substances
CPT/HCPCS: 36415; 70450; 71045; 71046; 73502; 80048; 80053; 81001; 82728; 83036; 83540; 83550; 83735; 84100; 84484; 85025; 85045; 85610; 85730; 86850; 86900; 86901; 87040; 87086; 93005; 93306; 93880; 94760; 96361; 96374; 96375; 96376; 99285

== ENCOUNTER 2022-07-15 10:44 | Inpatient (IN) | payer MEDICARE, BC ==
[2022-07-15] MEDS ORDERED: SODIUM CHLORIDE 0.9% 1,000 ML IV STA (10:47)
[2022-07-15] MEDS ORDERED: SODIUM CHLORIDE 0.9% 500 ML 500 ML IV ONE (10:47)
[2022-07-15 10:50] LABS: Glucose,Whole Blood 123 mg/dL (70-110)
[2022-07-15] MEDS ORDERED: levETIRAcetam IV 1,500 MG in SALINE 1 100ML.BAG IVPB STA (11:16)
[2022-07-15 11:19] LABS: Appearance,Urine Clear (Clear); Bilirubin,Urine Negative (Negative); Blood,Urine Trace (Negative); Budding Yeast,Urine Rare /hpf; Color,Urine Light Yellow; Glucose,Urine (UA) Negative (Negative); Ketones,Urine Trace (Negative); Leukocyte Esterase,Urine Small (Negative); Mucus,Urine Rare /hpf; Nitrite,Urine Negative (Negative); Protein,Urine 1+ (Negative); RBC,Urine 2 /hpf (0-5); Specific Gravity,Urine 1.011 (1.001-1.035); Squamous Epithelial Cell,Urine <1 /hpf (0-4); Urobilinogen,Urine <2.0 mg/dL (<2.0); WBC,Urine 29 /hpf (0-5)
--- NOTE | 2022-07-15 11:29 | XR ---
EXAMINATION TYPE: XR chest 1V portable DATE OF EXAM: 07/15/2022 COMPARISON: Chest x-ray one week ago HISTORY: Altered mental status and weakness. TECHNIQUE: Single AP portable frontal semiupright view of the chest is obtained. FINDINGS: There is chronic parenchymal changes bilaterally without suspicious focal air space opacit y, pleural effusion, or pneumothorax seen. The cardiac silhouette size is stable and enlarged with s lucho lead pacemaker. The osseous structures are demineralized. IMPRESSION: Cardiomegaly and chronic changes without acute pulmonary process. No significant change f rom recent x-ray.
[2022-07-15 11:30] LABS: Basophils % (A) 0 %; Eosinophils # (A) 0.1 k/uL (0-0.7); Eosinophils % (A) 1 %; HCT 31.3 % (34.0-46.0); HGB 10.1 gm/dL (11.4-16.0); Hypochromasia Slight; Lymphocytes # (A) 1.2 k/uL (1.0-4.8); Lymphocytes % (A) 8 %; MCH 28.1 pg (25.0-35.0); MCHC 32.3 g/dL (31.0-37.0); Mean Platelet Volume 7.5; Monocytes # (A) 0.8 k/uL (0-1.0); Monocytes % (A) 5 %; Neutrophils # (A) 13.2 k/uL (1.3-7.7); Neutrophils % (A) 86 %; Platelet Count 687 k/uL (150-450); RDW 14.8 % (11.5-15.5); WBC 15.5 k/uL (3.8-10.6)
[2022-07-15 11:31] LABS: ALT 21 U/L (4-34); AST 23 U/L (14-36); African American GFR (CKD) >90 (>60 ml/min/1.73 sqM); Albumin 3.5 g/dL (3.5-5.0); Alkaline Phosphatase 129 U/L (38-126); Anion Gap 10 mmol/L; Blood Urea Nitrogen 7 mg/dL (7-17); Calcium 8.8 mg/dL (8.4-10.2); Carbon Dioxide 27 mmol/L (22-30); Chloride 100 mmol/L (98-107); Glucose 126 mg/dL (74-99); INR 1.3 (<1.2); Non-African American GFR(CKD) 90 (>60 ml/min/1.73 sqM); Partial Thromboplastin Time 25.7 sec (22.0-30.0); Potassium 3.6 mmol/L (3.5-5.1); Prothrombin Time 13.2 sec (9.0-12.0); Sodium 137 mmol/L (137-145); Total Bilirubin 1.1 mg/dL (0.2-1.3); Total Protein 6.2 g/dL (6.3-8.2)
[2022-07-15 11:37] LABS: Amphetamine Screen,Urine Not Detected (NotDetected); Barbiturate Screen,Urine Not Detected (NotDetected); Benzodiazepines Screen,Urine Not Detected (NotDetected); Cocaine Screen,Urine Not Detected (NotDetected); Methadone Screen, Urine Not Detected (NotDetected); Opiate Screen,Urine Detected (NotDetected); Oxycodone Screen, Urine Not Detected (NotDetected); Phencyclidine Screen,Urine Not Detected (NotDetected); Tricyclic Antidepressant,Urine Not Detected (NotDetected); Urn Cannabinoid Scrn Not Detected (NotDetected)
--- NOTE | 2022-07-15 11:59 | CT ---
EXAMINATION TYPE: CT brain wo con DATE OF EXAM: 07/15/2022 COMPARISON: CT brain 07/07/2022 HISTORY: Altered mental status CT DLP: 1153.4 mGycm Automated exposure control for dose reduction was used. Helical imaging through the brain. FINDINGS: The calvarium is intact. Paranasal sinuses and mastoid air cells are well aerated. There are cerebral vascular calcifications. Abnormal low attenuation involving the right temporal lobe is again noted. There is loss of briseno-white differentiation but perhaps some improvement compared to prior exam. Ther e is some mass effect, right lateral ventricle show some volume loss as compared to left likely due t o edema, no evident hemorrhage Periventricular white matter shows patchy low attenuation. There is ev idence of old right frontal and left occipital infarct and encephalomalacia. No significant midline s hift. IMPRESSION: SUBACUTE INFARCT SIMILAR TO PRIOR EXAM described. There is some mass effect.
[2022-07-15] MEDS ORDERED: cefTRIAXone IN SWFI 1,000 MG/10 ML SYRINGE IVP STA (12:01)
[2022-07-15] MEDS ORDERED: NALOXONE 0.4 MG/ML 1 ML VIAL IV PRN (12:26)
--- NOTE | 2022-07-15 12:26 | ED ---
General Adult HPI - General Chief complaint: Neuro Symptoms/Deficit Stated complaint: Unresponsive Time Seen by Provider: 07/15/22 10:47 Source: family, EMS, RN notes reviewed, old records reviewed Mode of arrival: EMS Limitations: altered mental status - History of Present Illness Initial comments: 81-year-old female [facility] with altered level consciousness. The exact timing surrounding her change in level of consciousness is on not known. She is anticoagulated with history of previous CVA. She had a recent CVA this history is obtained from the son who is at bedside. She had no prior history of seizure disorder. She was noted to have a fever and does have history of recurrent urinary tract infections. - Related Data Home Medications Medication Instructions Recorded Confirmed Atorvastatin [Lipitor] 40 mg PO HS 04/05/17 07/15/22 Acetaminophen [Tylenol 8 Hour] 650 mg PO Q8H PRN 06/13/21 07/15/22 C,E,Zinc,Copper 11/Shuuf4r/Lut 1 cap PO DAILY 08/19/21 07/15/22 [Ocuvite Adult 50 Plus Softgel] Famotidine [Pepcid] 20 mg PO DAILY 08/19/21 07/15/22 Rivaroxaban [Xarelto] 15 mg PO W/SUPPER 08/19/21 07/15/22 Potassium Gluconate [Potassium 99 mg PO DAILY 01/14/22 07/15/22 Gluconate ER] carvediloL [Coreg*] 12.5 mg PO BID 01/14/22 07/15/22 Lidocaine 5% Oint [Xylocaine 5% 1 applic TOPICAL TID PRN 07/03/22 07/15/22 Oint] Nystatin/Triamcin 1 applic TOPICAL DAILY PRN 07/03/22 07/15/22 [Nystatin-Triamcinolone Cream] Oxybutynin Xl [Ditropan XL] 5 mg PO DAILY 07/03/22 07/15/22 HYDROcodone/APAP 7.5-325MG [[place] 1 tab PO Q6HR PRN 07/15/22 07/15/22 7.5] Sennosides/Docusate Sodium 1 tab PO DAILY PRN 07/15/22 07/15/22 [Senna-S 8.6-50 mg Tablet] hydrALAZINE HCL [Apresoline] 50 mg PO TID 07/15/22 07/15/22 Previous Rx's Medication Instructions Recorded Magnesium Oxide [Mag-Ox] 400 mg PO DAILY 30 Days #30 tablet 11/22/21 Magnesium Hydroxide [Milk of 400 mg PO DAILY PRN #150 ml 07/06/22 Magnesia] Amoxic-Pot Clav 875-125Mg 1 tab PO BID 1 Days #10 tab 07/11/22 [Augmentin 875-125] Losartan [Cozaar] 50 mg PO DAILY #30 tab 07/11/22 cloNIDine HCL [Catapres] 0.2 mg PO QID PRN #90 tab 07/11/22 Allergies Allergy/AdvReac Type Severity Reaction Status Date / Time amlodipine Allergy Anaphylaxis Verified 07/15/22 11:07 isosorbide mononitrate Allergy Rash/Hives Verified 07/15/22 11:07 [From Imdur] Review of Systems ROS Statement: Those systems with pertinent positive or pertinent negative responses have been documented in the HPI. ROS Other: All systems not noted in ROS Statement are negative. Past Medical History Past Medical History: Atrial Fibrillation, Cancer, CVA/TIA, Diabetes Mellitus, GERD/Reflux, Hyperlipidemia, Hypertension, Osteoarthritis (OA), Syncope Additional Past Medical History / Comment(s): CVA with L sided weakness, bradycardia/pacer, NIDDM type II/diet controlled since weight loss, cervical cancer with hysterectomy, recurrent UTIs/current UTI with antibiotic, diverticulitis, SBO/with bowel resection/diarrhea frequently since, osteoporosis, recent new bilateral pedal edema. History of Any Multi-Drug Resistant Organisms: None Reported Past Surgical History: Back Surgery, Bowel Resection, Heart Catheterization, Hysterectomy, Pacemaker Additional Past Surgical History / Comment(s): EGD, Colonoscopy, bilateral c ataract removed, "fatty tumor" removed from her back, exp. laparotomy w/small bowel resection, EGD, colonoscopy, microlaryngoscopy with bx d/t sore throat, Past Anesthesia/Blood Transfusion Reactions: Motion Sickness Additional Past Anesthesia/Blood Transfusion Reaction / Comment(s): Pt has never recieved blood. SON "CODED" POST HIP REPLACEMENT Type of Cardiac Device: Permanent Pacemaker Device Placement Date:: 05/21/21 Past Psychological History: Anxiety Smoking Status: Former smoker Past Alcohol Use History: None Reported Past Drug Use History: None Reported - Past Family History Father Family Medical History: Myocardial Infarction ([place]) Additional Family Medical History / Comment(s): Father of a [place] at age 76yrs. Mother Family Medical History: CVA/TIA Additional Family Medical History / Comment(s): Mother had a CVA at age 88yrs. She at age 92yrs. General Exam Limitations: altered mental status General appearance: in no apparent distress, obtunded Head exam: Present: atraumatic, normocephalic Eye exam: Present: other (Left inferior gaze) ENT exam: Present: mucous membranes dry Neck exam: Present: normal inspection. Absent: tenderness, meningismus Respiratory exam: Present: normal lung sounds bilaterally, other (Normal spontaneous respirations, no gag reflex). Absent: respiratory distress, wheezes Cardiovascular Exam: Present: regular rate, irregular rhythm GI/Abdominal exam: Present: soft. Absent: distended, tenderness Extremities exam: Present: normal capillary refill Skin exam: Present: warm, dry Course Vital Signs 07/15/22 10:47 Temperature 98.8 F Pulse Rate 78 Respiratory 16 Rate Blood Pressure 192/79 O2 Sat by Pulse 97 Oximetry EKG Findings - EKG Comments: EKG Findings:: EKG: Atrial fibrillation no ST segment elevation, ST segment depression and T-wave inversion in the lateral precordial leads ventricular rate of 85 QRS duration 89, QTC 423 Medical Decision Making - Medical Decision Making 81-year-old female presents with abnormal level of consciousness. Patient does not have a gag. She does have corneal reflexes. She has a left inferior gaze deviation. Full neuro exam is not possible. The timing of her change in mental status is not known. She is not a TPA candidate given her anticoagulation status. I do suspect either subclinical seizure or acute CVA. Head CT is obtained and shows a subacute evolving infarction which was present on previous imaging. Chest x-ray is negative. She has a leukocytosis at 15.5. Hemoglobin stable at 10.1. She has an elevated troponin without ST segment elevation on EKG. She does currently have urinary tract infection and she has tested positive for coronavirus was likely explains her fever. I did discuss at length the goals of care with her son, she is a DO NOT RESUSCITATE. She would not want anything aggressive including definitely no mechanical intervention. She's given IV fluids, and IV antibiotics in the emergency department as well as an initial dose of Keppra. She'll be admitted to Dr. Ronquillo who is familiar with the patient. - Lab Data Result diagrams: 07/15/22 10:53 07/15/22 10:53 Lab Results 07/15/22 07/15/22 07/15/22 Range/Units 10:48 10:53 10:53 WBC 15.5 H (3.8-10.6) k/uL RBC 3.60 L (3.80-5.40) m/uL Hgb 10.1 L (11.4-16.0) gm/dL Hct 31.3 L (34.0-46.0) % MCV 87.0 (80.0-100.0) fL MCH 28.1 (25.0-35.0) pg MCHC 32.3 (31.0-37.0) g/dL RDW 14.8 (11.5-15.5) % Plt Count 687 H (150-450) k/uL MPV 7.5 Neutrophils % 86 % Lymphocytes % 8 % Monocytes % 5 % Eosinophils % 1 % Basophils % 0 % Neutrophils # 13.2 H (1.3-7.7) k/uL Lymphocytes # 1.2 (1.0-4.8) k/uL Monocytes # 0.8 (0-1.0) k/uL Eosinophils # 0.1 (0-0.7) k/uL Basophils # 0.0 (0-0.2) k/uL Hypochromasia Slight PT 13.2 H (9.0-12.0) sec INR 1.3 H (<1.2) APTT 25.7 (22.0-30.0) sec Sodium (137-145) mmol/L Potassium (3.5-5.1) mmol/L Chloride (98-107) mmol/L Carbon Dioxide (22-30) mmol/L Anion Gap mmol/L BUN (7-17) mg/dL Creatinine (0.52-1.04) mg/dL Est GFR (CKD-EPI)AfAm (>60 ml/min/1.73 sqM) Est GFR (CKD-EPI)NonAf (>60 ml/min/1.73 sqM) Glucose (74-99) mg/dL POC Glucose (mg/dL) 123 H (70-110) mg/dL POC Glu Drapery Counselor ID Uyen Blanco Plasma Lactic Acid Manolo (0.7-2.0) mmol/L Calcium (8.4-10.2) mg/dL Total Bilirubin (0.2-1.3) mg/dL AST (14-36) U/L ALT (4-34) U/L Alkaline Phosphatase (38-126) U/L Troponin I (0.000-0.034) ng/mL Total Protein (6.3-8.2) g/dL Albumin (3.5-5.0) g/dL Urine Color Urine Appearance (Clear) Urine pH (5.0-8.0) Ur Specific Axis (1.001-1.035) Urine Protein (Negative) Urine Glucose (UA) (Negative) Urine Ketones (Negative) Urine Blood (Negative) Urine Nitrite (Negative) Urine Bilirubin (Negative) Urine Urobilinogen (<2.0) mg/dL Ur Leukocyte Esterase (Negative) Urine RBC (0-5) /hpf Urine WBC (0-5) /hpf Ur Squamous Epith Cells (0-4) /hpf Urine Mucus (None) /hpf Urine Yeast (Budding) (None) /hpf Urine Opiates Screen (NotDetected) Ur Oxycodone Screen (NotDetected) Urine Methadone Screen (NotDetected) Ur Propoxyphene Screen (NotDetected) Ur Barbiturates Screen (NotDetected) U Tricyclic Antidepress (NotDetected) Ur Phencyclidine Scrn (NotDetected) Ur Amphetamines Screen (NotDetected) U Methamphetamines Scrn (NotDetected) U Benzodiazepines Scrn (NotDetected) Urine Cocaine Screen (NotDetected) U Marijuana (THC) Screen (NotDetected) Coronavirus (PCR) (Not Detectd) 07/15/22 07/15/22 07/15/22 Range/Units 10:53 10:53 10:53 WBC (3.8-10.6) k/uL RBC (3.80-5.40) m/uL Hgb (11.4-16.0) gm/dL Hct (34.0-46.0) % MCV (80.0-100.0) fL MCH (25.0-35.0) pg MCHC (31.0-37.0) g/dL RDW (11.5-15.5) % Plt Count (150-450) k/uL MPV Neutrophils % % Lymphocytes % % Monocytes % % Eosinophils % % Basophils % % Neutrophils # (1.3-7.7) k/uL Lymphocytes # (1.0-4.8) k/uL Monocytes # (0-1.0) k/uL Eosinophils # (0-0.7) k/uL Basophils # (0-0.2) k/uL Hypochromasia PT (9.0-12.0) sec INR (<1.2) APTT (22.0-30.0) sec Sodium 137 (137-145) mmol/L Potassium 3.6 (3.5-5.1) mmol/L Chloride 100 (98-107) mmol/L Carbon Dioxide 27 (22-30) mmol/L Anion Gap 10 mmol/L BUN 7 (7-17) mg/dL Creatinine 0.53 (0.52-1.04) mg/dL Est GFR (CKD-EPI)AfAm >90 (>60 ml/min/1.73 sqM) Est GFR (CKD-EPI)NonAf 90 (>60 ml/min/1.73 sqM) Glucose 126 H (74-99) mg/dL POC Glucose (mg/dL) (70-110) mg/dL POC Glu Drapery Counselor ID Plasma Lactic Acid Manolo (0.7-2.0) mmol/L Calcium 8.8 (8.4-10.2) mg/dL Total Bilirubin 1.1 (0.2-1.3) mg/dL AST 23 (14-36) U/L ALT 21 (4-34) U/L Alkaline Phosphatase 129 H (38-126) U/L Troponin I 0.117 H* (0.000-0.034) ng/mL Total Protein 6.2 L (6.3-8.2) g/dL Albumin 3.5 (3.5-5.0) g/dL Urine Color Light Yellow Urine Appearance Clear (Clear) Urine pH 8.0 (5.0-8.0) Ur Specific Axis 1.011 (1.001-1.035) Urine Protein 1+ H (Negative) Urine Glucose (UA) Negative (Negative) Urine Ketones Trace H (Negative) Urine Blood Trace H (Negative) Urine Nitrite Negative (Negative) Urine Bilirubin Negative (Negative) Urine Urobilinogen <2.0 (<2.0) mg/dL Ur Leukocyte Esterase Small H (Negative) Urine RBC 2 (0-5) /hpf Urine WBC 29 H (0-5) /hpf Ur Squamous Epith Cells <1 (0-4) /hpf Urine Mucus Rare H (None) /hpf Urine Yeast (Budding) Rare H (None) /hpf Urine Opiates Screen Detected H (NotDetected) Ur Oxycodone Screen Not Detected (NotDetected) Urine Methadone Screen Not Detected (NotDetected) Ur Propoxyphene Screen Not Detected (NotDetected) Ur Barbiturates Screen Not Detected (NotDetected) U Tricyclic Antidepress Not Detected (NotDetected) Ur Phencyclidine Scrn Not Detected (NotDetected) Ur Amphetamines Screen Not Detected (NotDetected) U Methamphetamines Scrn Not Detected (NotDetected) U Benzodiazepines Scrn Not Detected (NotDetected) Urine Cocaine Screen Not Detected (NotDetected) U Marijuana (THC) Screen Not Detected (NotDetected) Coronavirus (PCR) (Not Detectd) 07/15/22 07/15/22 Range/Units 10:58 11:07 WBC (3.8-10.6) k/uL RBC (3.80-5.40) m/uL Hgb (11.4-16.0) gm/dL Hct (34.0-46.0) % MCV (80.0-100.0) fL MCH (25.0-35.0) pg MCHC (31.0-37.0) g/dL RDW (11.5-15.5) % Plt Count (150-450) k/uL MPV Neutrophils % % Lymphocytes % % Monocytes % % Eosinophils % % Basophils % % Neutrophils # (1.3-7.7) k/uL Lymphocytes # (1.0-4.8) k/uL Monocytes # (0-1.0) k/uL Eosinophils # (0-0.7) k/uL Basophils # (0-0.2) k/uL Hypochromasia PT (9.0-12.0) sec INR (<1.2) APTT (22.0-30.0) sec Sodium (137-145) mmol/L Potassium (3.5-5.1) mmol/L Chloride (98-107) mmol/L Carbon Dioxide (22-30) mmol/L Anion Gap mmol/L BUN (7-17) mg/dL Creatinine (0.52-1.04) mg/dL Est GFR (CKD-EPI)AfAm (>60 ml/min/1.73 sqM) Est GFR (CKD-EPI)NonAf (>60 ml/min/1.73 sqM) Glucose (74-99) mg/dL POC Glucose (mg/dL) (70-110) mg/dL POC Glu Drapery Counselor ID Plasma Lactic Acid Manolo 1.4 (0.7-2.0) mmol/L Calcium (8.4-10.2) mg/dL Total Bilirubin (0.2-1.3) mg/dL AST (14-36) U/L ALT (4-34) U/L Alkaline Phosphatase (38-126) U/L Troponin I (0.000-0.034) ng/mL Total Protein (6.3-8.2) g/dL Albumin (3.5-5.0) g/dL Urine Color Urine Appearance (Clear) Urine pH (5.0-8.0) Ur Specific Axis (1.001-1.035) Urine Protein (Negative) Urine Glucose (UA) (Negative) Urine Ketones (Negative) Urine Blood (Negative) Urine Nitrite (Negative) Urine Bilirubin (Negative) Urine Urobilinogen (<2.0) mg/dL Ur Leukocyte Esterase (Negative) Urine RBC (0-5) /hpf Urine WBC (0-5) /hpf Ur Squamous Epith Cells (0-4) /hpf Urine Mucus (None) /hpf Urine Yeast (Budding) (None) /hpf Urine Opiates Screen (NotDetected) Ur Oxycodone Screen (NotDetected) Urine Methadone Screen (NotDetected) Ur Propoxyphene Screen (NotDetected) Ur Barbiturates Screen (NotDetected) U Tricyclic Antidepress (NotDetected) Ur Phencyclidine Scrn (NotDetected) Ur Amphetamines Screen (NotDetected) U Methamphetamines Scrn (NotDetected) U Benzodiazepines Scrn (NotDetected) Urine Cocaine Screen (NotDetected) U Marijuana (THC) Screen (NotDetected) Coronavirus (PCR) Detected A (Not Detectd) Disposition Clinical Impression: Dehydration, Urinary tract infection, AMS (altered mental status), Cerebro vascular accident (CVA), COVID-19 Disposition: ADMITTED IP TO THIS HOSP Condition: Stable Is patient prescribed a controlled substance at d/c from ED?: No Referrals: Sánchez Mary DO [Primary Care Provider] - 1-2 days Time of Disposition: 12:25
[2022-07-15] MEDS ORDERED: cloNIDine HCL 0.2 MG TAB PO PRN (16:05)
[2022-07-15] MEDS ORDERED: HYDROcodone/APAP 7.5-325MG 1 EACH TAB PO PRN (16:05)
[2022-07-15] MEDS ORDERED: ACETAMINOPHEN TAB 325 MG TAB PO PRN (16:05)
--- NOTE | 2022-07-15 16:39 | P.HPIM ---
History of Present Illness H&P Date: 07/15/22 Chief Complaint: Decreased sensorium This is a 81-year-old patient who was just discharged from the hospital on July 11 [address] Mary. She was initially admitted to the hospital on July 03. Initially admitted to orthopedic surgery and xarelto was held and subsequently the patient developed a massive ischemic stroke. Computed tomography scan confirming the same on July 06. In the right temporal and occipital region. Extension into the breath region. Patient had left hemiparesis and neglect. Patient has underlying chronic atrial fibr illation. Echocardiogram did not show any clot. Patient had undergone IM nailing of the left femur fracture. History is obtained by the son at the bedside. This morning he received a phone call stating that patient was unresponsive. Prior to that patient had been feeding herself. One sister were able to stand up with assistance. Patient the ER was noted to have a downward gaze. With left eye also looking outwards. Not responding.. We the left side. Patient's son wants to have no heroic interventions. His brother is also the POA. Review of systems: Cannot obtain as patient is nonverbal Past medical history to include: Atrial fibrillation, diabetes, GERD, hypertension, hyperlipidemia, osteoporosis, recent stroke on July 06 with left-sided weakness, pacemaker, cervical cancer and hysterectomy, Social history: Previous to living at [facility] living. Using a walker. Now at [facility]. Patient smoked for 52 years stopped in 2008. Physical examination: VITAL SIGNS: 98.8, 78, 16, 192/79, 97% room air GENERAL: BMI 22.5 laying in bed not responding. EYES: Downward gaze bilateral, with left eye also looking to the leftl. HEENT: External appearance of nose and ears normal, oral cavity grossly normal. Dry mucous membrane NECK: JVD not raised; masses not palpable. HEART: Heart shows irregular no edema. LUNGS: Respiratory rate normal; clear to auscultation. ABDOMEN: Soft, nontender, liver spleen not palpable, no masses palpable. PSYCH: [Unable to assess l. MUSCULOSKELETAL:No Clubbing/cyanosis;muscles-grossly intact, evidence of OA NEUROLOGICAL: Some facial asymmetry, decreased power on the left side. Pupils as above. LYMPHATICS: No lymph nodes palpable in the axilla and neck INVESTIGATIONS, reviewed in the clinical context: WBC 15.5 hemoglobin 10.1 platelets 687 potassium 3.6 BUN 7 creatinine 0.53 Troponin I 0.117 Urine drug screen positive for opiates COVID 19 PCR: Detected EKG tracing personally reviewed by me: Atrial fibrillation, rate 85 Chest x-ray film personally reviewed by me-cardiomegaly, pacemaker Computed tomography scan brain: Abnormal low attenuation involving the right temporal lobe again noted. There is some mass effect. Right lateral ventricle show some volume loss. Compared to the left likely due to edema. Evidence of old right frontal and left occipital infarct and evidence encephalomalacia. Assessment and plan: -Acute on subacute stroke in the right temporal/frontal/occipital infarct. Appears to be some mass effect with decrease in the ventricle. Patient is downward gaze. Likely embolic. Underlying atrialr fibrillation. Patient also does stroke on 07/06/2022 -Recent left femur fracture with IM nailing -Persistent atrial fibrillation, rate controlled Coreg, xarelto -Accelerated hypertension Cozaar, Catapres when necessary, hydralazine, Coreg -Urine incontinence Ditropan XL -Primary osteoarthritis -Hyperlipidemia Lipitor -Acute medical debility from recent stroke and left femur fracture Lengthy discussion is patient's son at the bedside. He understands prognosis guarded. NG tube with medications. DO NOT RESUSCITATE. He'll discuss with his brother and other family members. Questions answered. Advanced care planning: Discuss was out of the bedside. Understands prognosis guarded. DO NOT RESUSCITATE. He and his brother our decision maker/POA. NG tube with medications for now. Let us see how the patient does in the next 24 hours. Understands prognosis is poor. Time spent for this about 25 minutes Past Medical History Past Medical History: Atrial Fibrillation, Cancer, CVA/TIA, Diabetes Mellitus, GERD/Reflux, Hyperlipidemia, Hypertension, Osteoarthritis (OA), Syncope Additional Past Medical History / Comment(s): CVA with L sided weakness, bradycardia/pacer, NIDDM type II/diet controlled since weight loss, cervical cancer with hysterectomy, recurrent UTIs/current UTI with antibiotic, diverticulitis, SBO/with bowel resection/diarrhea frequently since, osteoporosis, recent new bilateral pedal edema. (L) Hip fx with surgery-while off anticoags patient had a CVA in hospital 07/03/2022 admission History of Any Multi-Drug Resistant Organisms: None Reported Past Surgical History: Back Surgery, Bowel Resection, Heart Catheterization, Hysterectomy, Pacemaker Additional Past Surgical History / Comment(s): EGD, Colonoscopy, bilateral cataract removed, "fatty tumor" removed from her back, exp. laparotomy w/small bowel resection, EGD, colonoscopy, microlaryngoscopy with bx d/t sore throat, Past Anesthesia/Blood Transfusion Reactions: Motion Sickness Additional Past Anesthesia/Blood Transfusion Reaction / Comment(s): Pt has never recieved blood. SON states that patient "CODED" POST HIP REPLACEMENT Type of Cardiac Device: Permanent Pacemaker Device Placement Date:: 05/21/21 Past Psychological History: Anxiety Additional Psychological History / Comment(s): Pt resides at [facility]. She uses a walker to ambulate. Her son manages/organizes her medications and drives her to appointments. She has been a provided dinner, but cristel expresses concern that pt has lost 30# in 4 months and has not been eating breakfast/lunch. Patient was discharged to [facility] post Hip fx with surgery Smoking Status: Former smoker Past Alcohol Use History: None Reported Additional Past Alcohol Use History / Comment(s): Pt started smoking in 1957 and quit in 2008 Past Drug Use History: None Reported - Past Family History Father Family Medical History: Myocardial Infarction (MO) Additional Family Medical History / Comment(s): Father of a MO at age 76yrs. Mother Family Medical History: CVA/TIA Additional Family Medical History / Comment(s): Mother had a CVA at age 88yrs. She at age 92yrs. Medications and Allergies Home Medications Medication Instructions Recorded Confirmed Type Atorvastatin [Lipitor] 40 mg PO HS 04/05/17 07/15/22 History Acetaminophen [Tylenol 8 Hour] 650 mg PO Q8H PRN 06/13/21 07/15/22 History C,E,Zinc,Copper 11/Mpfaw5z/Lut 1 cap PO DAILY 08/19/21 07/15/22 History [Ocuvite Adult 50 Plus Softgel] Famotidine [Pepcid] 20 mg PO DAILY 08/19/21 07/15/22 History Rivaroxaban [Xarelto] 15 mg PO W/SUPPER 08/19/21 07/15/22 History Magnesium Oxide [Mag-Ox] 400 mg PO DAILY 30 Days #30 tablet 11/22/21 07/15/22 Rx Potassium Gluconate [Potassium 99 mg PO DAILY 01/14/22 07/15/22 History Gluconate ER] carvediloL [Coreg*] 12.5 mg PO BID 01/14/22 07/15/22 History Lidocaine 5% Oint [Xylocaine 5% 1 applic TOPICAL TID PRN 07/03/22 07/15/22 History Oint] Nystatin/Triamcin 1 applic TOPICAL DAILY PRN 07/03/22 07/15/22 History [Nystatin-Triamcinolone Cream] Oxybutynin Xl [Ditropan XL] 5 mg PO DAILY 07/03/22 07/15/22 History Magnesium Hydroxide [Milk of 400 mg PO DAILY PRN #150 ml 07/06/22 07/15/22 Rx Magnesia] Amoxic-Pot Clav 875-125Mg 1 tab PO BID 1 Days #10 tab 07/11/22 07/15/22 Rx [Augmentin 875-125] Losartan [Cozaar] 50 mg PO DAILY #30 tab 07/11/22 07/15/22 Rx cloNIDine HCL [Catapres] 0.2 mg PO QID PRN #90 tab 07/11/22 07/15/22 Rx HYDROcodone/APAP 7.5-325MG [[place] 1 tab PO Q6HR PRN 07/15/22 07/15/22 History 7.5] Sennosides/Docusate Sodium 1 tab PO DAILY PRN 07/15/22 07/15/22 History [Senna-S 8.6-50 mg Tablet] hydrALAZINE HCL [Apresoline] 50 mg PO TID 07/15/22 07/15/22 History Allergies Allergy/AdvReac Type Severity Reaction Status Date / Time amlodipine Allergy Anaphylaxis Verified 07/15/22 11:07 isosorbide mononitrate Allergy Rash/Hives Verified 07/15/22 11:07 [From Imdur] Physical Exam Vitals: Vital Signs Temp Pulse Resp BP Pulse Ox 07/15/22 12:00 95 21 200/93 97 07/15/22 11:11 19 192/79 98 07/15/22 10:47 98.8 F 78 16 192/79 97 Intake and Output 07/15/22 07/15/22 07/15/22 06:59 14:59 22:59 Other: Weight 61.235 kg Results CBC & Chem 7: 07/15/22 10:53 07/15/22 10:53 Labs: Abnormal Lab Results - Last 24 Hours (Table) 07/15/22 07/15/22 07/15/22 Range/Units 10:48 10:53 10:53 WBC 15.5 H (3.8-10.6) k/uL RBC 3.60 L (3.80-5.40) m/uL Hgb 10.1 L (11.4-16.0) gm/dL Hct 31.3 L (34.0-46.0) % Plt Count 687 H (150-450) k/uL Neutrophils # 13.2 H (1.3-7.7) k/uL PT 13.2 H (9.0-12.0) sec INR 1.3 H (<1.2) Glucose (74-99) mg/dL POC Glucose (mg/dL) 123 H (70-110) mg/dL Alkaline Phosphatase (38-126) U/L Troponin I (0.000-0.034) ng/mL Total Protein (6.3-8.2) g/dL Urine Protein (Negative) Urine Ketones (Negative) Urine Blood (Negative) Ur Leukocyte Esterase (Negative) Urine WBC (0-5) /hpf Urine Mucus (None) /hpf Urine Yeast (Budding) (None) /hpf Urine Opiates Screen (NotDetected) Coronavirus (PCR) (Not Detectd) 07/15/22 07/15/22 07/15/22 Range/Units 10:53 10:53 10:53 WBC (3.8-10.6) k/uL RBC (3.80-5.40) m/uL Hgb (11.4-16.0) gm/dL Hct (34.0-46.0) % Plt Count (150-450) k/uL Neutrophils # (1.3-7.7) k/uL PT (9.0-12.0) sec INR (<1.2) Glucose 126 H (74-99) mg/dL POC Glucose (mg/dL) (70-110) mg/dL Alkaline Phosphatase 129 H (38-126) U/L Troponin I 0.117 H* (0.000-0.034) ng/mL Total Protein 6.2 L (6.3-8.2) g/dL Urine Protein 1+ H (Negative) Urine Ketones Trace H (Negative) Urine Blood Trace H (Negative) Ur Leukocyte Esterase Small H (Negative) Urine WBC 29 H (0-5) /hpf Urine Mucus Rare H (None) /hpf Urine Yeast (Budding) Rare H (None) /hpf Urine Opiates Screen Detected H (NotDetected) Coronavirus (PCR) (Not Detectd) 07/15/22 Range/Units 10:58 WBC (3.8-10.6) k/uL RBC (3.80-5.40) m/uL Hgb (11.4-16.0) gm/dL Hct (34.0-46.0) % Plt Count (150-450) k/uL Neutrophils # (1.3-7.7) k/uL PT (9.0-12.0) sec INR (<1.2) Glucose (74-99) mg/dL POC Glucose (mg/dL) (70-110) mg/dL Alkaline Phosphatase (38-126) U/L Troponin I (0.000-0.034) ng/mL Total Protein (6.3-8.2) g/dL Urine Protein (Negative) Urine Ketones (Negative) Urine Blood (Negative) Ur Leukocyte Esterase (Negative) Urine WBC (0-5) /hpf Urine Mucus (None) /hpf Urine Yeast (Budding) (None) /hpf Urine Opiates Screen (NotDetected) Coronavirus (PCR) Detected A (Not Detectd) Microbiology - Last 24 Hours (Table) 07/15/22 10:53 Urine Culture - Preliminary Urine,Voided
[2022-07-15] MEDS ORDERED: LACTULOSE 20 GM/30 ML CUP PO PRN (16:40)
[2022-07-15] MEDS ORDERED: LOPERAMIDE 2 MG CAP PO PRN (16:40)
[2022-07-15] MEDS ORDERED: ONDANSETRON 4 MG/2 ML VIAL IVP PRN (16:40)
--- NOTE | 2022-07-15 17:38 | XR ---
EXAMINATION TYPE: XR chest 1V portable DATE OF EXAM: 07/15/2022 COMPARISON: Today HISTORY: Tube placement TECHNIQUE: Single view FINDINGS: There is nasogastric tube and the tip appears to be over the mid heart in the lower esophag us. There is no heart failure. Thoracic aorta is atheromatous. There is left axillary pacemaker. No p leural effusion. IMPRESSION: NG tube is in the esophagus and not in the stomach. The tip is approximately 5 cm from th e gastroesophageal junction. No active cardiopulmonary disease.
--- NOTE | 2022-07-15 18:48 | XR ---
EXAMINATION TYPE: XR chest 1V portable DATE OF EXAM: 07/15/2022 COMPARISON: Today HISTORY: Tube placement TECHNIQUE: Single view FINDINGS: There is no heart failure nor confluent pneumonic infiltrate. There is left axillary pacema ker. There is nasogastric tube in the stomach. There are chest leads. No pleural effusion. IMPRESSION: NG tube is in the stomach. No cardiopulmonary disease
[2022-07-15] MEDS: LOSARTAN 50 MG TAB PO SCH (19:02)
[2022-07-15] MEDS: hydrALAZINE HCL 50 MG TAB PO SCH ×2 (19:02→22:40)
[2022-07-15] MEDS ORDERED: ATORVASTATIN 40 MG TAB PO SCH (21:00)
[2022-07-15] MEDS: carvediloL 12.5 MG TAB PO SCH (22:40)
[2022-07-16] MEDS: hydrALAZINE HCL 50 MG TAB PO SCH (08:51)
[2022-07-16] MEDS: carvediloL 12.5 MG TAB PO SCH (08:52)
[2022-07-16] MEDS: LOSARTAN 50 MG TAB PO SCH (08:52)
[2022-07-16] MEDS ORDERED: OXYBUTYNIN XL 5 MG TAB.ER.24 PO SCH (09:00)
[2022-07-16 11:21] VITALS: BP 173/72; PULSE 75; TEMP 99.2
[2022-07-16] MEDS ORDERED: LORazepam 1 MG/0.5 ML VIAL IV PRN (12:39)
[2022-07-16] MEDS ORDERED: ACETAMINOPHEN SUPPOSITORY 650 MG SUPP RECTAL PRN (12:39)
[2022-07-16] MEDS ORDERED: HYDROmorphone 0.5 MG/0.5 ML SYRINGE IVP PRN (12:39)
--- NOTE | 2022-07-16 13:42 | P.PN ---
Progress Note - Text Progress Note Date: 07/16/22 Chief Complaint: Decreased sensorium This is a 81-year-old patient who was just discharged from the hospital on July 11 [address] Mary. She was initially admitted to the hospital on July 03. Initially admitted to orthopedic surgery and xarelto was held and subsequently the patient developed a massive ischemic stroke. Computed tomography scan confirming the same on July 06. In the right temporal and occipital region. Extension into the breath region. Patient had left hemiparesis and neglect. Patient has underlying chronic atrial fibrillation. Echocardiogram did not show any clot. Patient had undergone IM nailing of the left femur fracture. History is obtained by the son at the bedside. This morning he received a phone call stating that patient was unresponsive. Prior to that patient had been feeding herself. One sister were able to stand up with assistance. Patient the ER was noted to have a downward gaze. With left eye also looking outwards. Not responding.. We the left side. Patient's son wants to have no heroic interventions. His brother is also the POA. July 16: Getting medications through NG tube. Spiked a fever. Still remains on's responsive. Some response to deep pain. Family meeting with patient's both the sons one on the phone, and the [id number]. Decided to proceed with comfort care. Discontinue NG tube. Active Medications Acetaminophen (Acetaminophen Suppository 650 Mg Supp) 650 mg RECTAL Q4HR PRN PRN Reason: Fever and/or Mild Pain Atropine Sulfate (Atropine Ophth Soln 1% 5ml Btl) 2 drops SUBLINGUAL Q4HR PRN PRN Reason: Excess Secretions Glycopyrrolate (Glycopyrrolate 0.2 Mg/Ml 2 Ml Vial) 0.1 mg IVP Q6HR PRN PRN Reason: Excess Secretions Hydromorphone HCl (Hydromorphone 0.5 Mg/0.5 Ml Syringe) 0.5 mg IVP Q2HR PRN PRN Reason: Moderate Pain (Scale 4 to 6) Lorazepam (Lorazepam 1 Mg/0.5 Ml Vial) 1 mg IV Q6HR PRN PRN Reason: Anxiety Morphine Sulfate (Morphine Sulfate 2 Mg/Ml Syringe) 2 mg IV Q15M PRN PRN Reason: Breakthrough Pain Past medical history to include: Atrial fibrillation, diabetes, GERD, hypertension, hyperlipidemia, osteoporosis, recent stroke on July 06 with left-sided weakness, pacemaker, cervical cancer and hysterectomy, Social history: Previous to living at [facility] living. Using a walker. Now at [facility]. Patient smoked for 52 years stopped in 2008. Physical examination: VITAL SIGNS: 99.2, 75, 18, 1 73 x 72, 95% room air GENERAL: laying in bed not responding. EYES: Downward gaze bilateral, with left eye also looking to the leftl. HEENT: External appearance of nose and ears normal, oral cavity grossly normal. Dry mucous membrane NECK: JVD not raised; masses not palpable. HEART: Heart shows irregular no edema. LUNGS: Respiratory rate normal; clear to auscultation. ABDOMEN: Soft, nontender, liver spleen not palpable, no masses palpable. PSYCH: [Unable to assess l. MUSCULOSKELETAL:No Clubbing/cyanosis;muscles-grossly intact, evidence of OA NEUROLOGICAL: Some facial asymmetry, decreased power on the left side. Pupils as above. INVESTIGATIONS, reviewed in the clinical context: WBC 15.5 hemoglobin 10.1 platelets 687 potassium 3.6 BUN 7 creatinine 0.53 Troponin I 0.117 Urine drug screen positive for opiates COVID 19 PCR: Detected EKG tracing personally reviewed by me: Atrial fibrillation, rate 85 Chest x-ray film personally reviewed by me-cardiomegaly, pacemaker Computed tomography scan brain: Abnormal low attenuation involving the right temporal lobe again noted. There is some mass effect. Right lateral ventricle show some volume loss. Compared to the left likely due to edema. Evidence of old right frontal and left occipital infarct and evidence encephalomalacia. Assessment and plan: -Acute on subacute stroke in the right temporal/frontal/occipital infarct. Appears to be some mass effect with decrease in the ventricle. Patient is downward gaze. Likely embolic. Underlying atrialr fibrillation. Had stroke on 07/06/2022: Not improving -Recent left femur fracture with IM nailing -Persistent atrial fibrillation, rate controlled Coreg, xarelto -Accelerated hypertension Cozaar, Catapres when necessary, hydralazine, Coreg -Urine incontinence Ditropan XL -Primary osteoarthritis -Hyperlipidemia Lipitor -Acute medical debility from recent stroke and left femur fracture Patient be made comfort care. Discontinue NG tube and current medications. It medications were comfort measures. Advanced care planning: Had a meeting with patient's son michael, brother Vincent on the phone, and his in the room. Also the nurse. Patient overall poor prognosis was discussed. Questions answered. They've agreed to proceed to discontinue NG tube and current medications. Comfort measures to keep the patient comfortable. The understand the patient is dying. 25 minutes was spent for this
[2022-07-16] MEDS: ATROPINE OPHTH SOLN 1% 5ML BTL SUBLINGUAL PRN (14:09)
[2022-07-17] MEDS: ATROPINE OPHTH SOLN 1% 5ML BTL SUBLINGUAL PRN ×2 (09:58→17:02)
[2022-07-17] MEDS ORDERED: SCOPOLAMINE 1 MG/72 HR PATCH TRANSDERM SCH (12:00)
--- NOTE | 2022-07-17 12:10 | P.PN ---
Progress Note - Text Progress Note Date: 07/17/22 Chief Complaint: Decreased sensorium This is a 81-year-old patient who was just discharged from the hospital on July 11 [address] Mary. She was initially admitted to the hospital on July 03. Initially admitted to orthopedic surgery and xarelto was held and subsequently the patient developed a massive ischemic stroke. Computed tomography scan confirming the same on July 06. In the right temporal and occipital region. Extension into the breath region. Patient had left hemiparesis and neglect. Patient has underlying chronic atrial fibrillation. Echocardiogram did not show any clot. Patient had undergone IM nailing of the left femur fracture. History is obtained by the son at the bedside. This morning he received a phone call stating that patient was unresponsive. Prior to that patient had been feeding herself. One sister were able to stand up with assistance. Patient the ER was noted to have a downward gaze. With left eye also looking outwards. Not responding.. We the left side. Patient's son wants to have no heroic interventions. His brother is also the POA. July 16: Getting medications through NG tube. Spiked a fever. Still remains on's responsive. Some response to deep pain. Family meeting with patient's both the sons one on the phone, and the [id number]. Decided to proceed with comfort care. Discontinue NG tube. July 17: Comfort care. Some rattling in the throat. Add scopolamine patch. When necessary suction. No family at the bedside. Active Medications Acetaminophen (Acetaminophen Suppository 650 Mg Supp) 650 mg RECTAL Q4HR PRN PRN Reason: Fever and/or Mild Pain Atropine Sulfate (Atropine Ophth Soln 1% 5ml Btl) 2 drops SUBLINGUAL Q4HR PRN PRN Reason: Excess Secretions Last Admin: 07/17/22 09:58 Dose: 2 drops Glycopyrrolate (Glycopyrrolate 0.2 Mg/Ml 2 Ml Vial) 0.1 mg IVP Q6HR PRN PRN Reason: Excess Secretions Hydromorphone HCl (Hydromorphone 0.5 Mg/0.5 Ml Syringe) 0.5 mg IVP Q2HR PRN PRN Reason: Moderate Pain (Scale 4 to 6) Last Admin: 07/17/22 09:54 Dose: 0.5 mg Lorazepam (Lorazepam 1 Mg/0.5 Ml Vial) 1 mg IV Q6HR PRN PRN Reason: Anxiety Morphine Sulfate (Morphine Sulfate 2 Mg/Ml Syringe) 2 mg IV Q15M PRN PRN Reason: Breakthrough Pain Scopolamine (Scopolamine 1 Mg/72 Hr Patch) 1 patch TRANSDERM Q72H JOHN Past medical history to include: Atrial fibrillation, diabetes, GERD, hypertension, hyperlipidemia, osteoporosis, recent stroke on July 06 with left-sided weakness, pacemaker, cervical cancer and hysterectomy, Social history: Previous to living at [facility] living. Using a walker. Now at [facility]. Patient smoked for 52 years stopped in 2008. Physical examination: VITAL SIGNS: GENERAL: laying in bed some congestion. HEART: Heart shows irregular no edema. LUNGS: Respiratory rate increased to crackles INVESTIGATIONS, reviewed in the clinical context: WBC 15.5 hemoglobin 10.1 platelets 687 potassium 3.6 BUN 7 creatinine 0.53 Troponin I 0.117 Urine drug screen positive for opiates COVID 19 PCR: Detected EKG tracing personally reviewed by me: Atrial fibrillation, rate 85 Chest x-ray film personally reviewed by me-cardiomegaly, pacemaker Computed tomography scan brain: Abnormal low attenuation involving the right temporal lobe again noted. There is some mass effect. Right lateral ventricle show some volume loss. Compared to the left likely due to edema. Evidence of old right frontal and left occipital infarct and evidence encephalomalacia. Assessment and plan: -Acute on subacute stroke in the right temporal/frontal/occipital infarct. Appears to be some mass effect with decrease in the ventricle. Patient is downward gaze. Likely embolic. Underlying atrialr fibrillation. Had stroke on 07/06/2022: Not improving -Recent left femur fracture with IM nailing -Persistent atrial fibrillation, rate controlled -Accelerated hypertension -Urine incontinence -Primary osteoarthritis -Hyperlipidemia -Acute medical debility from recent stroke and left femur fracture -Comfort measures Continue comfort measures. Add scopolamine patch. When necessary suctioning.
[2022-07-17] MEDS: GLYCOPYRROLATE 0.2 MG/ML 2 ML VIAL IVP PRN (17:02)
[2022-07-17] MEDS: MORPHINE SULFATE 2 MG/ML SYRINGE IV PRN (18:12)
[2022-07-18] MEDS: MORPHINE SULFATE 2 MG/ML SYRINGE IV PRN (10:25)
[2022-07-18] MEDS: ATROPINE OPHTH SOLN 1% 5ML BTL SUBLINGUAL PRN (10:26)
[2022-07-18 10:29] VITALS: RESP 37
--- NOTE | 2022-07-18 11:33 | P.DS ---
Providers Date of admission: 07/15/22 12:26 Expected date of discharge: 07/18/22 Attending physician: Rojas Ronquillo Primary care physician: Sánchez [facility] Course: Chief Complaint: Decreased sensorium This is a 81-year-old patient who was just discharged from the hospital on July 11 [address] Mary. She was initially admitted to the hospital on July 03. Initially admitted to orthopedic surgery and xarelto was held and subsequently the patient developed a massive ischemic stroke. Computed tomography scan confirming the same on July 06. In the right temporal and occipital region. Extension into the breath region. Patient had left hemiparesis and neglect. Patient has underlying chronic atrial fibrillation. Echocardiogram did not show any clot. Patient had undergone IM nailing of the left femur fracture. History is obtained by the son at the bedside. This morning he received a phone call stating that patient was unresponsive. Prior to that patient had been feeding herself. One sister were able to stand up with assistance. Patient the ER was noted to have a downward gaze. With left eye also looking outwards. Not responding.. We the left side. Patient's son wants to have no heroic interventions. His brother is also the POA. July 16: Getting medications through NG tube. Spiked a fever. Still remains on's responsive. Some response to deep pain. Family meeting with patient's both the sons one on the phone, and the [id number]. Decided to proceed with comfort care. Discontinue NG tube. July 17: Comfort care. Some rattling in the throat. Add scopolamine patch. When necessary suction. No family at the bedside. July 18: Patient is scopolamine patch. Dilaudid as needed. Son and [id number] at the bedside. Discussed. Hospice consulted for GIP. Communicative with the nurse and the hospice team. Comfort measures to continue. Past medical history to include: Atrial fibrillation, diabetes, GERD, hypertension, hyperlipidemia, osteoporosis, recent stroke on July 06 with left-sided weakness, pacemaker, cervical cancer and hysterectomy, Social history: Previous to living at [facility]. Using a walker. Now at [facility]. Patient smoked for 52 years stopped in 2008. Physical examination: VITAL SIGNS: 75, 28 GENERAL: laying in bed some congestion. LUNGS: Respiratory rate increased/course crackles INVESTIGATIONS, reviewed in the clinical context: WBC 15.5 hemoglobin 10.1 platelets 687 potassium 3.6 BUN 7 creatinine 0.53 Troponin I 0.117 Urine drug screen positive for opiates COVID 19 PCR: Detected EKG tracing personally reviewed by me: Atrial fibrillation, rate 85 Chest x-ray film personally reviewed by me-cardiomegaly, pacemaker Computed tomography scan brain: Abnormal low attenuation involving the right temporal lobe again noted. There is some mass effect. Right lateral ventricle show some volume loss. Compared to the left likely due to edema. Evidence of old right frontal and left occipital infarct and evidence encephalomalacia. Assessment and plan: -Acute on subacute stroke in the right temporal/frontal/occipital infarct. Appears to be some mass effect with decrease in the ventricle. Patient is downward gaze. Likely embolic. Underlying atrialr fibrillation. Had stroke on 07/06/2022: Not improving -Recent left femur fracture with IM nailing -Persistent atrial fibrillation, rate controlled -Accelerated hypertension -Urine incontinence -Primary osteoarthritis -Hyperlipidemia -Acute medical debility from recent stroke and left femur fracture -Comfort measures Disposition: Hospice/GIP Plan - Discharge Summary Discharge Rx Participant: No New Discharge Prescriptions: New Atropine Ophth Soln 1% 5Ml [Isopto Atropine 1% 5Ml] 2 drops SUBLINGUAL Q4HR PRN ml PRN Reason: Excess Secretions Continue Rivaroxaban [Xarelto] 15 mg PO W/SUPPER Discontinued Atorvastatin [Lipitor] 40 mg PO HS C,E,Zinc,Copper 11/Jhyls6b/Lut [Ocuvite Adult 50 Plus Softgel] 1 cap PO DAILY Magnesium Oxide [Mag-Ox] 400 mg PO DAILY 30 Days #30 tablet Magnesium Hydroxide [Milk of Magnesia] 400 mg PO DAILY PRN #150 ml PRN Reason: Constipation cloNIDine HCL [Catapres] 0.2 mg PO QID PRN #90 tab PRN Reason: Blood Pressure - High Losartan [Cozaar] 50 mg PO DAILY #30 tab hydrALAZINE HCL [Apresoline] 50 mg PO TID HYDROcodone/APAP 7.5-325MG [[place] 7.5] 1 tab PO Q6HR PRN PRN Reason: Pain Sennosides/Docusate Sodium [Senna-S 8.6-50 mg Tablet] 1 tab PO DAILY PRN PRN Reason: Constipation Acetaminophen [Tylenol 8 Hour] 650 mg PO Q8H PRN PRN Reason: Pain Famotidine [Pepcid] 20 mg PO DAILY carvediloL [Coreg*] 12.5 mg PO BID Potassium Gluconate [Potassium Gluconate ER] 99 mg PO DAILY Oxybutynin Xl [Ditropan XL] 5 mg PO DAILY Nystatin/Triamcin [Nystatin-Triamcinolone Cream] 1 applic TOPICAL DAILY PRN PRN Reason: Rash Lidocaine 5% Oint [Xylocaine 5% Oint] 1 applic TOPICAL TID PRN PRN Reason: Pain Amoxic-Pot Clav 875-125Mg [Augmentin 875-125] 1 tab PO BID 1 Days #10 tab Discharge Medication List Rivaroxaban [Xarelto] 15 mg PO W/SUPPER 08/19/21 [History] Atropine Ophth Soln 1% 5Ml [Isopto Atropine 1% 5Ml] 2 drops SUBLINGUAL Q4HR PRN ml 07/18/22 [Rx] Discharge Disposition: DISCH TO HOSPICE MED FACILTY
[2022-07-18] MEDS: GLYCOPYRROLATE 0.2 MG/ML 2 ML VIAL IVP PRN (12:57)
--- NOTE | 2022-07-20 20:51 | CDI ---
There is documentation of mass effect with decrease in the ventricle as well as edema was found on the CT of the brain. Additional clarification is requested. History/Risk Factors: Patient was admitted with an acute on subacute stroke in the right temporal/frontal/occipital infarct. In the ER the patient was noted to have a downward gaze with left eye also looking outwards. Family decided on comfort care and the patient was discharged to Hospice. Clinical Indicators: CT of the brain states "Subacute infarct similar to prior exam described. There is some mass effect. Right lateral ventricle show some volume loss. Compared to the left likely due to edema." Can you please clarify the clinical significance of the patient's abnormal findings on the CT? Please check all that apply. [ ] Mass effect with compression of the brain [ ] Mass effect without compression of the brain [ ] Evidence of Mass Effect on Imagining without Clinical Significance [ ] Cerebral Edema [ ] Other, please specify [ ] Unable to determine Mass effect with compression of the brain MTDD
== END 2022-07-18 14:00 | disposition hospice, inpatient (51) | DRG 64 ==
LOC: EC 10:44 → 3SCARD 12:26 → 4SSUR 07-18 06:13
PROVIDERS: ADMIT Hospitalist; ATTEND Hospitalist
DX: I63.49 Cerebral infarction due to embolism of other cerebral artery (principal); U07.1 COVID-19; N39.0 Urinary tract infection, site not specified; G81.94 Hemiplegia, unspecified affecting left nondominant side; R41.4 Neurologic neglect syndrome; I48.19 Other persistent atrial fibrillation; E11.9 Type 2 diabetes mellitus without complications; M19.91 Primary osteoarthritis, unspecified site; R53.81 Other malaise; M81.0 Age-related osteoporosis without current pathological fracture; R32 Unspecified urinary incontinence; E78.5 Hyperlipidemia, unspecified; I10 Essential (primary) hypertension; E86.0 Dehydration; R19.7 Diarrhea, unspecified; Z66 Do not resuscitate; F41.9 Anxiety disorder, unspecified; Z51.5 Encounter for palliative care; Z87.891 Personal history of nicotine dependence; Z95.0 Presence of cardiac pacemaker; Z90.49 Acquired absence of other specified parts of digestive tract; Z79.01 Long term (current) use of anticoagulants; Z79.899 Other long term (current) drug therapy; Z82.3 Family history of stroke; Z85.41 Personal history of malignant neoplasm of cervix uteri; Z87.440 Personal history of urinary (tract) infections; Z90.710 Acquired absence of both cervix and uterus
CPT/HCPCS: 36415; 70450; 71045; 80053; 80306; 81001; 83605; 84484; 85025; 85610; 85730; 87040; 87086; 87635; 93005; 96365; 96375; 99285

== ENCOUNTER 2022-07-18 11:35 | Inpatient (IN) | payer MEDICAID ==
[2022-07-18] MEDS ORDERED: ONDANSETRON 4 MG/2 ML VIAL IVP PRN (12:16)
[2022-07-18] MEDS ORDERED: ATROPINE OPHTH SOLN 1% 5ML BTL SUBLINGUAL PRN (12:16)
[2022-07-18] MEDS ORDERED: MORPHINE SULFATE 2 MG/ML SYRINGE IV PRN (12:16)
[2022-07-18] MEDS ORDERED: LORazepam 2 MG/ML INJ IV PRN (12:16)
[2022-07-18] MEDS ORDERED: ACETAMINOPHEN SUPPOSITORY 650 MG SUPP RECTAL PRN (12:28)
[2022-07-18] MEDS: GLYCOPYRROLATE 0.2 MG/ML 2 ML VIAL IVP SCH ×2 (15:48→18:33)
[2022-07-18] MEDS: MORPHINE SULFATE (100 MG/2 ML) 100 MG in SODIUM CHLORIDE 0.9% 100 ML IV SCH (15:48)
[2022-07-18] MEDS ORDERED: RIVAROXABAN 15 MG PO SCH (17:30)
[2022-07-19] MEDS: GLYCOPYRROLATE 0.2 MG/ML 2 ML VIAL IVP SCH ×4 (00:17→18:00)
[2022-07-19] MEDS: MORPHINE SULFATE (100 MG/2 ML) 100 MG in SODIUM CHLORIDE 0.9% 100 ML IV SCH (13:43)
--- NOTE | 2022-07-19 16:22 | P.PN ---
Progress Note - Text Progress Note Date: 07/19/22 Patient admitted under [facility]. On comfort care measures. On morphine drip. Scopolamine patch. And when necessary medications. Family at the bedside. Patient appears to be breathing more comfortable. On examination: Laying comfortably. Lungs fair entry [employer]ST[employer]ER: Lethargic Diagnosis: Acute stroke Plan: Comfort measures to continue including morphine drip. Patient is put the sounds and daughter at the bedside.
--- NOTE | 2022-07-19 17:20 | P.DS ---
Providers Date of admission: 07/18/22 14:01 Expected date of discharge: 07/19/22 Attending physician: Rojas Ronquillo Primary care physician: Sánchez [facility] Course: Hospital course: Patient was admitted to [facility] for comfort measures. Comfort measure care center was used. Including IV morphine. Family has been present. Patient today Cause of : Acute stroke Plan - Discharge Summary New Discharge Prescriptions: No Action Atropine Ophth Soln 1% 5Ml [Isopto Atropine 1% 5Ml] 2 drops SUBLINGUAL Q4HR PRN ml PRN Reason: Excess Secretions Rivaroxaban [Xarelto] 15 mg PO W/SUPPER Discharge Medication List Rivaroxaban [Xarelto] 15 mg PO W/SUPPER 08/19/21 [History] Atropine Ophth Soln 1% 5Ml [Isopto Atropine 1% 5Ml] 2 drops SUBLINGUAL Q4HR PRN ml 07/18/22 [Rx]
[2022-07-19 17:39] VITALS: RESP 16
[2022-07-19 17:41] VITALS: BP 123/78; PULSE 73; TEMP 103.8
[2022-07-21] MEDS ORDERED: SCOPOLAMINE 1 MG/72 HR PATCH TRANSDERM SCH (12:00)
== END 2022-07-19 18:08 | disposition expired | DRG 951 ==
LOC: 4SSUR 14:01
PROVIDERS: ADMIT Hospitalist; ATTEND Hospitalist
DX: Z51.5 Encounter for palliative care (principal); I63.9 Cerebral infarction, unspecified; G81.94 Hemiplegia, unspecified affecting left nondominant side; I48.19 Other persistent atrial fibrillation; K21.9 Gastro-esophageal reflux disease without esophagitis; I10 Essential (primary) hypertension; E78.5 Hyperlipidemia, unspecified; M81.0 Age-related osteoporosis without current pathological fracture; S72.92XD Unspecified fracture of left femur, subsequent encounter for closed fracture with routine healing; R32 Unspecified urinary incontinence; M19.91 Primary osteoarthritis, unspecified site; R53.81 Other malaise; Z66 Do not resuscitate; E11.9 Type 2 diabetes mellitus without complications; R55 Syncope and collapse; R00.1 Bradycardia, unspecified; Z96.649 Presence of unspecified artificial hip joint; F41.9 Anxiety disorder, unspecified; Z79.899 Other long term (current) drug therapy; Z88.8 Allergy status to other drugs, medicaments and biological substances; Z95.0 Presence of cardiac pacemaker; Z85.41 Personal history of malignant neoplasm of cervix uteri; Z87.891 Personal history of nicotine dependence; Z79.01 Long term (current) use of anticoagulants; Z82.49 Family history of ischemic heart disease and other diseases of the circulatory system; Z82.3 Family history of stroke